=== PATIENT | male | born 1945 | race Caucasian/White ===

== ENCOUNTER 2016-12-29 19:34 | Inpatient (IN) | payer BC, OTHER ==
--- NOTE | 2016-12-29 19:37 | PDOC ---
History of Present Illness - General History Source: Patient, Family Exam Limitations: No Limitations - History of Present Illness Initial Comments: 12/29/16 20:10 The patient is a 71 year old male, with a significant past medical history of HTN, blood clot, and CHF, who presents to the emergency department with weakness and dysuria for a few weeks. He reports having blood and burning when he urinates. He reports also not being able to walk far or go up and down stairs secondary to his weakness. He denies any musculoskeletal pain and SOB with weight bearing activity. He notes recently losing a lot of weight for the past couple of weeks. He does note having a decrease in appetite, stating the last time he ate or drank anything was 2 days ago. He reports recently having the chills, weakness, and cold like symptoms for a few weeks. He denies any of these symptoms currently. He denies any recent fevers, chills, headache or dizziness. He denies any recent nausea, vomit, diarrhea or constipation. He denies any recent chest pain. He denies any other complaints of pain. He denies any recent frequency and urgency. His nephew reports these symptoms see similar to when the patient had CHF. Allergies: NKA Past surgical history: None reported. Social History: Nonsmoker. Denies EtOH use and drug use. Lives with nephew. PCP: <Jose Juan Perdue - Last Filed: 12/29/16 20:15> <Tavia Gutierrez - Last Filed: 12/30/16 03:47> - General Chief Complaint: Shortness of Breath Stated Complaint: SOB Time Seen by Provider: 12/29/16 19:37 Past History <Jose Juan Perdue - Last Filed: 12/29/16 20:15> - Past Medical History Anemia: No Asthma: No Cancer: No Cardiac Disorders: No CVA: No COPD: No CHF: Yes Dementia: No Diabetes: No GI Disorders: No Disorders: No HTN: Yes Hypercholesterolemia: No Liver Disease: No Seizures: No Thyroid Disease: No - Surgical History Abdominal Surgery: No Appendectomy: No Cardiac Surgery: No Cholecystectomy: No Lung Surgery: No Neurologic Surgery: No Orthopedic Surgery: No - Psycho/Social/Smoking Cessation Hx Anxiety: No Suicidal Ideation: No Smoking History: Never smoked Have you smoked in the past 12 months: No Hx Alcohol Use: No Drug/Substance Use Hx: No Substance Use Type: None Hx Substance Use Treatment: No <MattAlvinoTavia J - Last Filed: 12/30/16 03:47> - Past Medical History Allergies/Adverse Reactions: Allergies Allergy/AdvReac Type Severity Reaction Status Date / Time No Known Allergies Allergy Unverified 11/12/13 06:51 Home Medications: Ambulatory Orders Amlodipine Besylate [Norvasc -] 10 mg PO DAILY #0 tablet 11/16/13 Dutasteride [Avodart] 0.5 mg PO DAILY #0 cap 11/16/13 Magnesium Oxide [Mag-Ox -] 400 mg PO DAILY #0 tablet 11/16/13 Metoprolol Tartrate [Lopressor -] 25 mg PO BID #0 tab 11/16/13 Tamsulosin HCl [Flomax -] 0.4 mg PO HS #0 cap.er.24h 11/16/13 Review of Systems - Review of Systems All Other Systems: Reviewed and Negative <Jose Juan Perdue - Last Filed: 12/29/16 20:15> *Physical Exam - Physical Exam Comments: 12/29/16 20:13 GENERAL: The patient is awake, alert, and fully oriented. Pale and cachectic. HEAD: Normal with no signs of trauma. EYES: Pupils equal, round and reactive to light, extraocular movements intact, sclera anicteric, bilateral pale conjunctiva. ENT: bilateral temporal wasting. , oropharynx clear without exudates. Dry mucous membranes. NECK: Normal range of motion, supple without lymphadenopathy, JVD, or masses. LUNGS: Breath sounds equal, clear to auscultation bilaterally. No wheeze/ crackles. HEART: Regular rate and rhythm, normal S1 and S2 with 2/6 systolic murmur ABDOMEN: Lower abdominal distention with generalized moderate tenderness. Soft. BS wnl. No guarding or rebound. No palpable masses. No hepatosplenomegaly. EXTREMITIES: Normal range of motion, no edema. No clubbing or cyanosis. No cords , erythema, or tenderness. NEUROLOGICAL: Cranial nerves II through XII grossly intact. Normal speech, normal gait. PSYCH: Normal mood, normal affect. SKIN: Warm, Dry, normal turgor, no rashes or lesions noted. <Jose Juan Perdue - Last Filed: 12/29/16 20:15> ED Treatment Course - LABORATORY CBC & Chemistry Diagram: 12/29/16 20:29 12/29/16 23:10 <MattTavia Quiroga - Last Filed: 12/30/16 03:47> Progress Note - Progress Note Progress Note: Documentation has been prepared under my direction and personally reviewed by me in its entirety. I attest that this documented accurately reflects all work, treatment, procedures and medical decision making performed by me. <MattTavia Quiroga - Last Filed: 12/30/16 03:47> Medical Decision Making - Medical Decision Making As noted above, this 71-year-old man presents to the emergency room with a history of generalized weakness, decreased appetite and weight loss. Past medical history notable for aortic insufficiency and hypertension; he also has a history of UTI and urinary retention. Patient states that he has not seen Dr. Resendiz, who he uses as a general doctor and fills his prescriptions for a long time. Severe bilateral hydronephrosis was present on US during admission here in Oct 2013.He had urology consultation then with cystoscopy and possible TURP recommended but apparently has had no urologic follow-up since then. Exam notable for extreme cachexia; patient also appears clinically dehydrated. He has lower abdominal distention and tenderness. Patient received normal saline IV hydration at approx 250ml/hr 12 lead EKG shows NSR at 98bpm; LVH present with widening of QRS and peaking of T waves as compared to previous tracing of 11/12/13 Laboratory evaluation notable for white blood cell count 22,400; electrolytes notable for potassium of 8.0; carbon dioxide of 16 with an anion gap of 16. BUN is 175 with a creatinine of 6.4. Calcium is 11.0. Troponin is 0.05. Lactic acid is elevated at 3.549 Urinalysis notable for RBC, WBC and bacteria Patient received 10U reg insulin IV and 50ml of D50 for hyperkalemia at 21:30 12/29/16 23:38 portable chest x-ray performed which shows mild cardiomegaly without evidence of acute lung disease Noncontrast CT scan of the abdomen and pelvis: 1marked right and left renal hydronephrosis with marked dilatation of the renal pelvis . Round calcific density along the superior margin of the right kidney measuring 2.9cm [Calcified aneurysm versus calcified mass lesion] 2marked distention of the urinary bladder with thickening and trabeculation of the wall 3multiple gallstones without CT evidence of acute cholecystitis Zosyn 2.2g IV ordered. Mg level and repeat CMP/lactic acid levels pending Patient refused placement of urinary catheter 12/29/16 23:55 Repeat lab values: Potassium has decreased to 7.0; BUN is 165 and creatinine is 6.1. Calcium is now 9.9 and magnesium is 3.7 12/29/16 23:57 Clinical presentation consistent with acute on chronic renal insufficiency ( creatinine during admission of 11/14/13 was 2.6). There is indication of obstructive uropathy and possible mass versus aneurysm of the right kidney. Urinalysis shows evidence of UTI. Patient needs admission for evaluation of renal function, evaluation and observation of obstructive uropathy and treatment of infected urine Dr. Romero manager commission for medical service admissions and will be contacted. 12/30/16 00:[address] Johnson. Since patient will possibly need hemodialysis and, thus, [facility], he should be admitted to [facility] 12/30/16 01:[address] Fernández, [facility] ; nephrology will be contacted 12/30/16 01:[address] Whitt who emphasized importance of urinary catheter placement. He will follow progress of patient. The patient now agrees to placement of urinary catheter Calcium gluconate, 1 gram IV ordered Case discussed with Ermelinda Heath of [facility] who will admit patient 12/30/16 01:43 Mccurdy catheter placed without difficulty: 700ml of cloudy pink urine with clots drained. Patient tolerated procedure well Repeat VS : BP119/62, HR 94 O2 100% RA 12/30/16 02:01 Case discussed with AGUSTÍN Linton in ICU at [facility], who accepts patient. Kayexalate 15g PO and additional liter of IV NS will be administered 12/30/16 03:45 patient transported via [facility] ambulance [facility] <Tavia Gutierrez - Last Filed: 12/30/16 03:47> *DC/Admit/Observation/Transfer - Attestations Scribe Attestion: 12/29/16 19:39 Documentation prepared by Jose Juan Perdue, acting as medical office representative for Tavia Gutierrez MD. <Jose Juan Perdue - Last Filed: 12/29/16 20:15> - Discharge Dispostion Admit: Yes <Tavia Gutierrez - Last Filed: 12/30/16 03:47> Diagnosis at time of Disposition: Hyperkalemia, Obstructive uropathy Acute renal failure Qualifiers: Acute renal failure type: unspecified Qualified Code(s): N17.9 - Acute kidney failure, unspecified - Discharge Dispostion Condition at time of disposition: Guarded - Referrals Referrals: Luna Resendiz MD [Primary Care Provider] -
[2016-12-29 20:27] LABS: PH,URINE 8.5 (4.5-8); URINE APPEARANCE Cloudy; URINE BILIRUBIN Negative (NEGATIVE); URINE BLOOD 3+ (NEGATIVE); URINE COLOR YELLOW; URINE GLUCOSE (UA) Negative (NEGATIVE); URINE KETONE Trace (NEGATIVE); URINE LEUK ESTERASE 3+ (NEGATIVE); URINE NITRITE Negative (NEGATIVE); URINE PROTEIN 2+ (NEGATIVE); URINE UROBILINOGEN 0.2 E.U/dl (0.2-1.0)
[2016-12-29 20:38] LABS: URINE BACTERIA MODERATE /hpf (NEGATIVE); URINE WBC 20-30 (3-5)
[2016-12-29 21:04] LABS: MEAN PLT VOLUME 8.1 fl (7.5-11.1); RDW 12.7 % (11.9-15.9)
[2016-12-29 21:05] LABS: INR 1.18 (0.82-1.09); PROTHROMBIN TIME (PATIENT) 13.2 SEC (10.2-13.0)
[2016-12-29 21:08] LABS: MCH 31.4 pg (25.7-33.7); MCHC 34.7 g/dl (32.0-35.9); MEAN CELL VOLUME 90.7 fl (80-96); PLATELET COUNT 464 K/MM3 (134-434); WHITE BLOOD COUNT 22.4 K/mm3 (4.0-10.0)
[2016-12-29 21:11] LABS: ALBUMIN 3.7 g/dl (3.5-5.0); BILIRUBIN,TOTAL 0.6 mg/dl (0.2-1.0); CREATININE 6.4 mg/dl (0.6-1.3); TOT PROT 7.9 g/dl (6.4-8.3)
[2016-12-29 21:21] LABS: TROPONIN I (DFP) 0.05 ng/ml (0.03-0.50)
[2016-12-29] MEDS ORDERED: INSULIN REGULAR HUMAN 100 UNITS/ML *VIAL IVPUSH ONE (21:33)
[2016-12-29] MEDS ORDERED: DEXTROSE 50%-WATER 50 ML VIAL IVPUSH ONE (21:34)
[2016-12-29] MEDS ORDERED: INSULIN REGULAR HUMAN 100 UNITS/ML *VIAL ONE (21:40)
[2016-12-29] MEDS ORDERED: DEXTROSE 50%-WATER 50 ML DISP.SYRIN ONE (21:40)
[2016-12-29] MEDS ORDERED: PIPERACILLIN/TAZOB 2.25 GM 2.25 GM in DEXTROSE 5%-WATER - 50 ML IVPB ONE (22:31)
[2016-12-29] MEDS ORDERED: PIPERACILLIN/TAZOBACTAM 4.5 GM VIAL IVPB ONE (22:35)
[2016-12-29 22:39] LABS: PLATELET ESTIMATE INCREASED (NORMAL)
[2016-12-29 23:39] LABS: ALBUMIN 3.1 g/dl (3.5-5.0); BILIRUBIN,TOTAL 0.4 mg/dl (0.2-1.0); CALCIUM 9.9 mg/dl (8.4-10.2); CREATININE 6.1 mg/dl (0.6-1.3); MAGNESIUM 3.7 mg/dL (1.8-2.4); TOT PROT 6.7 g/dl (6.4-8.3)
[2016-12-30] MEDS ORDERED: CALCIUM GLUCONATE 10% - 1,000 MG/10 ML VIAL IVPB ONE (00:57)
[2016-12-30] MEDS ORDERED: CALCIUM GLUCONATE 10% - 1,000 MG/10 ML VIAL ONE (01:00)
[2016-12-30] MEDS ORDERED: SODIUM POLYSTYRENE SULFONATE 15 GM/60 ML BOTTLE PO ONE (02:04)
[2016-12-30] MEDS ORDERED: SODIUM CHLORIDE 1,000 ML IV STA (02:05)
--- NOTE | 2016-12-30 02:24 | HP ---
CHIEF COMPLAINT: Weakness, Dysuria PCP: Dr. Resendiz HISTORY OF PRESENT ILLNESS: This is a 71 year old male with a past medical history of HTN (poor compliant), Hydronephrosis, UTIs, CHF, Aortic Insufficiency, DVTs. Who presents to the emergency department with generalized weakness and dysuria x weeks. Patient reports having increased burning and pain when urinating- denies hematuria. Patient reports poor appetite, including po liquids. Patient reports having the Flu last November with diarrhea. Patient reports weight loss of 30lbs over 3-6 months which he attributes to his appetite. Patient denies fever, cough , SOB, CP, AP, vomiting, constipation. ER course was notable for: (1) Sepsis Criteria Met IV: P- 106, WBC 22,000, Lactic Acid 3.5, BUN 165- Zosyn given in ED (2) K 8.0 with EKG- peaked T Waves, given D50, Insulin IV, Calcium Gluconate, BiCarb IN ED (3) UA- +leukocytes, mod bacteria, +blood (4) CTAP- Hydronephrosis Recent Travel: None PAST MEDICAL HISTORY: See HPI PAST SURGICAL HISTORY: Unknown Social History: Smoking: Never Alcohol: None Drugs: None Family History: Non-Contributory Allergies No Known Allergies Allergy (Unverified 11/12/13 06:51) HOME MEDICATIONS: Home Medications Medication Instructions Recorded Amlodipine Besylate [Norvasc -] 10 mg PO DAILY #0 tablet 11/16/13 Dutasteride [Avodart] 0.5 mg PO DAILY #0 cap 11/16/13 Magnesium Oxide [Mag-Ox -] 400 mg PO DAILY #0 tablet 11/16/13 Metoprolol Tartrate [Lopressor -] 25 mg PO BID #0 tab 11/16/13 Tamsulosin HCl [Flomax -] 0.4 mg PO HS #0 cap.er.24h 11/16/13 REVIEW OF SYSTEMS CONSTITUTIONAL: chills, diaphoresis, generalized weakness, malaise, loss of appetite, weight change Absent: fever HEENT: Absent: rhinorrhea, nasal congestion, throat pain, throat swelling, difficulty swallowing, mouth swelling, ear pain, eye pain, visual changes CARDIOVASCULAR: Absent: chest pain, syncope, palpitations, irregular heart rate, lightheadedness , peripheral edema RESPIRATORY: Absent: cough, shortness of breath, dyspnea with exertion, orthopnea, wheezing, stridor, hemoptysis GASTROINTESTINAL: abdominal distension Absent: abdominal pain, nausea, vomiting, diarrhea, constipation, melena, hematochezia GENITOURINARY: dysuria Absent: frequency, urgency, hesitancy, hematuria, flank pain, genital pain MUSCULOSKELETAL: Absent: myalgia, arthralgia, joint swelling, back pain, neck pain SKIN: Absent: rash, itching, pallor HEMATOLOGIC/IMMUNOLOGIC: Absent: easy bleeding, easy bruising, lymphadenopathy, frequent infections ENDOCRINE: Absent: unexplained weight gain, unexplained weight loss, heat intolerance, cold intolerance NEUROLOGIC: Absent: headache, focal weakness or paresthesias, dizziness, unsteady gait, seizure, mental status changes, bladder or bowel incontinence PSYCHIATRIC: Absent: anxiety, depression, suicidal or homicidal ideation, hallucinations. PHYSICAL EXAMINATION Vital Signs - 24 hr 12/29/16 12/29/16 12/29/16 19:44 20:25 21:46 Pulse Rate 106 H Pulse Rate [ 92 H Left Radial] Respiratory 16 16 Rate Blood Pressure 130/56 Blood Pressure 123/52 [Right Arm] O2 Sat by Pulse 100 100 100 Oximetry (%) 12/30/16 01:48 Pulse Rate Pulse Rate [ 94 H Left Radial] Respiratory 16 Rate Blood Pressure Blood Pressure 119/2 [Right Arm] O2 Sat by Pulse 100 Oximetry (%) GENERAL: Cachetic, Awake, alert, and oriented x2, in no acute distress. HEAD: Normal with no signs of trauma. EYES: Pupils equal, round and reactive to light, extraocular movements intact, sclera anicteric, conjunctiva clear. No lid lag. EARS, NOSE, THROAT: Ears normal, nares patent, oropharynx clear without exudates. Dry mucous membranes. NECK: Normal range of motion, supple without lymphadenopathy, JVD, or masses. LUNGS: Breath sounds equal, clear to auscultation bilaterally. No wheezes, and no crackles. No accessory muscle use. HEART: Regular rate and rhythm, normal S1 and S2 without murmur, rub or gallop. ABDOMEN: Soft, flat, nontender, not distended, hypoactive bowel sounds, no guarding, no rebound, no masses. No hepatomegaly or splenomegaly. GENITOURINARY: Mccurdy catheter with gross hematuria in drainage bag MUSCULOSKELETAL: Normal range of motion at all joints. No bony deformities or tenderness. No CVA tenderness. UPPER EXTREMITIES: 2+ pulses, warm, well-perfused. No cyanosis. No clubbing. Cap refill <2 seconds. No peripheral edema. LOWER EXTREMITIES: 2+ pulses, warm, well-perfused. No calf tenderness. No peripheral edema. NEUROLOGICAL: Cranial nerves II-XII intact. Normal speech. Gait not observed. PSYCHIATRIC: Cooperative. Good eye contact. Appropriate mood and affect. SKIN: Warm, dry, poor turgor, no rashes or lesions noted. Laboratory Results - last 24 hr 12/29/16 12/29/16 12/29/16 20:19 20:25 20:25 WBC RBC Hgb Hct MCV MCHC RDW Plt Count MPV Neutrophils % Lymphocytes % Monocytes % Band Neutrophils Platelet Estimate Platelet Comment INR Sodium 128 L Potassium 8.0 H* D Chloride 96 L Carbon Dioxide 16 L D Anion Gap 16 BUN 175 H* D Creatinine 6.4 H D Creat Clearance w eGFR 8.70 Random Glucose 153 H D Lactic Acid Calcium 11.0 H D Magnesium Total Bilirubin 0.6 AST 17 ALT 11 D Alkaline Phosphatase 83 D Creatine Kinase 21 L Troponin I 0.05 D Total Protein 7.9 D Albumin 3.7 Urine Color Yellow Urine Appearance Cloudy Urine pH 8.5 H D Ur Specific [place] 1.020 Urine Protein 2+ H Urine Glucose (UA) Negative Urine Ketones Trace Urine Blood 3+ H Urine Nitrite Negative Urine Bilirubin Negative Urine Urobilinogen 0.2 e.u/dl Ur Leukocyte Esterase 3+ H Urine RBC 5-10 Urine WBC 20-30 Urine Bacteria Moderate 12/29/16 12/29/16 12/29/16 20:29 20:29 20:29 WBC 22.4 H D RBC 5.30 D Hgb 16.7 D Hct 48.1 D MCV 90.7 MCHC 34.7 RDW 12.7 Plt Count 464 H D MPV 8.1 Neutrophils % 90.0 H Lymphocytes % 2.0 L D Monocytes % 2.0 L Band Neutrophils 6.0 Platelet Estimate Increased Platelet Comment Few large plts INR 1.18 Sodium Potassium Chloride Carbon Dioxide Anion Gap BUN Creatinine Creat Clearance w eGFR Random Glucose Lactic Acid 3.549 H* Calcium Magnesium Total Bilirubin AST ALT Alkaline Phosphatase Creatine Kinase Troponin I Total Protein Albumin Urine Color Urine Appearance Urine pH Ur Specific [place] Urine Protein Urine Glucose (UA) Urine Ketones Urine Blood Urine Nitrite Urine Bilirubin Urine Urobilinogen Ur Leukocyte Esterase Urine RBC Urine WBC Urine Bacteria 12/29/16 23:10 WBC RBC Hgb Hct MCV MCHC RDW Plt Count MPV Neutrophils % Lymphocytes % Monocytes % Band Neutrophils Platelet Estimate Platelet Comment INR Sodium 128 L Potassium 7.0 H* Chloride 100 Carbon Dioxide 15 L Anion Gap 13 BUN 165 H* Creatinine 6.1 H Creat Clearance w eGFR 9.19 Random Glucose 169 H Lactic Acid Calcium 9.9 Magnesium 3.7 H D Total Bilirubin 0.4 D AST 10 D ALT 10 Alkaline Phosphatase 67 Creatine Kinase Troponin I Total Protein 6.7 Albumin 3.1 L Urine Color Urine Appearance Urine pH Ur Specific [place] Urine Protein Urine Glucose (UA) Urine Ketones Urine Blood Urine Nitrite Urine Bilirubin Urine Urobilinogen Ur Leukocyte Esterase Urine RBC Urine WBC Urine Bacteria 12/29/16 23:38 portable chest x-ray performed which shows mild cardiomegaly without evidence of acute lung disease Noncontrast CT scan of the abdomen and pelvis: 1marked right and left renal hydronephrosis with marked dilatation of the renal pelvis . Round calcific density along the superior margin of the right kidney measuring 2.9cm [Calcified aneurysm versus calcified mass lesion] 2marked distention of the urinary bladder with thickening and trabeculation of the wall 3multiple gallstones without CT evidence of acute cholecystitis ASSESSMENT/PLAN: This is a 71 y/o male with a PMHx of: HTN (poor compliant), CHF, Aortic Insufficiency, DVT, Hydronephrosis, Chronic UTIs. Presents to the ED with generalized weakness and Dysuria. Admitted to ICU for Urosepsis, Obstructive Uropathy, Hyperkalemia for further evaluation of their emergent condition. Plan: 1. Urosepsis 2. Obstructive Uropathy 3. Acute Renal Failure 4.Hyperkalemia 5. Abnormal EKG- Peaked T Waves 6. Weakness 7. Cachexia 8. HTN 9 FEN 10 DVT/PPI Prophylaxis Code Status: Full Code Dispo: Requires Inpatient Critical Care Monitoring Problem List - Problem (1) Sepsis Assessment/Plan: - ICU admit - Cardiac monitoring - Likely Urosepsis - Blood Cultures-pending - Urine Culture-pending - Zosyn given in ED - Appreciate ID Consult - Continue Empiric ABX until BC preliminary report, then adjust as indicated - Continue IVF monitor for fluid overload - Trend Lactic Acid - Mccurdy Catheter - Strict INOs Code(s): A41.9 - SEPSIS, UNSPECIFIED ORGANISM (2) Acute renal failure Assessment/Plan: - Possibly secondary to Dehydration vs Obstruction - Appreciate Nephrology Consult- ED spoke with Dr. Libby Flores who is aware - Monitor renal function - Avoid nephro toxic drugs - Renal US Code(s): N17.9 - ACUTE KIDNEY FAILURE, UNSPECIFIED Qualifiers: Acute renal failure type: unspecified Qualified Code(s): N17.9 - Acute kidney failure, unspecified (3) Obstructive uropathy Assessment/Plan: - CTAP- see Above - Appreciate Urology Consult Code(s): N13.9 - OBSTRUCTIVE AND REFLUX UROPATHY, UNSPECIFIED (4) Hyperkalemia Assessment/Plan: - D50, Insulin IV, Bicarb, Calcium Gluconate, Kayexalate given in ED - Peaked T waves on EKG - Trend K, treat with interventions accordingly - Continue Cardiac monitoring - Repeat EKG in am Code(s): E87.5 - HYPERKALEMIA (5) Lactic acidemia Assessment/Plan: - Secondary to Urosepsis - IVFs given - Trend LA Code(s): E87.2 - ACIDOSIS (6) Leukocytosis Assessment/Plan: - Secondary to Urosepsis - BC pending - Zosyn give in ED - Continue ABX - ID to follow Code(s): D72.829 - ELEVATED WHITE BLOOD CELL COUNT, UNSPECIFIED (7) Dysuria Assessment/Plan: - Secondary to UTI vs Obstruction - See Above Code(s): R30.0 - DYSURIA (8) Weakness Assessment/Plan: - Likely due to Dehydration from poor appetite - IVF - Monitor vitals - PT Code(s): R53.1 - WEAKNESS (9) HTN (hypertension) Assessment/Plan: - Moniitor BP - Hold home meds for now, 2/2 patient is septic Code(s): I10 - ESSENTIAL (PRIMARY) HYPERTENSION (10) Chronic UTI (urinary tract infection) Code(s): N39.0 - URINARY TRACT INFECTION, SITE NOT SPECIFIED (11) Poor appetite Assessment/Plan: - RD Consult Code(s): R63.0 - ANOREXIA (12) DVT prophylaxis Assessment/Plan: - Heparin SQ Code(s): [id number] - Visit type - Emergency Visit Emergency Visit: Yes ED Registration Date: 12/30/16 Care time: The patient presented to the Emergency Department on the above date and was hospitalized for further evaluation of their emergent condition. - New Patient This patient is new to me today: Yes Date on this admission: 12/30/16 - Critical Care Critical Care patient: Yes Total Critical Care Time (in minutes): 32 Critical Care Statement: The care of this patient involved high complexity decision making to prevent further life threatening deterioration of the patient 's condition and/or to evalute & treat vital organ system(s) failure or risk of failure.
[2016-12-30] MEDS ORDERED: SODIUM POLYSTYRENE SULFONATE 15 GM/60 ML BOTTLE ONE (02:48)
[2016-12-30] MEDS ORDERED: LACTATED RINGERS SOLUTION 1,000 ML IV ONE ×2 (04:14→04:15)
[2016-12-30] MEDS ORDERED: LACTATED RINGERS SOLUTION 1,000 ML IV SCH ×2 (04:15→05:45)
--- NOTE | 2016-12-30 04:19 | CONSULT ---
Consult Consult Specialty:: Pulm/CC - History of Present Illness History of Present Illness: Pt is a 71yr old man with PMHx of HTN, hydronephrosis and UTI. He presents to the ER with CC of weakness, dysuria and polyuria for several weeks. Pt states he had "the flu" about a month ago with diarrhea and reduced PO intake x 1 month. At [place] ER pt found to have WBC 22.4, Potassium of 8.0, BUN/Cr 175 /6.4 and +UA. Pt given IVF, Calcium, d50/10U insulin/kayexalate and Zosyn. Ab/ Pel CT as below. Pt transferred to [facility] ICU for further management. Upon assessment pt is alert but appears slightly confused, HR 116, 121/88, RR 20. Pt denies chest pain/headache/n/v/d. Urine in herrera with profound hematuria. Ab/Pel CT (briefly): Small pericardial effusion. Marked renal hydronephrosis without evidence of hydroureter suggestive of uteropelvic junction stenosis. Over distended urinary bladder with significant thickening of its wall and trabeculations. Slightly enlarged prostate gland. - History Source History Provided By: Patient, Medical Record Limitations to Obtaining History: Clinical Condition - Alcohol/Substance Use Hx Alcohol Use: No - Smoking History Smoking history: Never smoked Have you smoked in the past 12 months: No Aproximately how many cigarettes per day: 0 Home Medications - Allergies Allergies/Adverse Reactions: Allergies Allergy/AdvReac Type Severity Reaction Status Date / Time No Known Allergies Allergy Unverified 11/12/13 06:51 - Home Medications Home Medications: Ambulatory Orders Amlodipine Besylate [Norvasc -] 10 mg PO DAILY #0 tablet 11/16/13 Dutasteride [Avodart] 0.5 mg PO DAILY #0 cap 11/16/13 Magnesium Oxide [Mag-Ox -] 400 mg PO DAILY #0 tablet 11/16/13 Metoprolol Tartrate [Lopressor -] 25 mg PO BID #0 tab 11/16/13 Tamsulosin HCl [Flomax -] 0.4 mg PO HS #0 cap.er.24h 11/16/13 Review of Systems - Review of Systems Constitutional: reports: Lethargy, Loss of Appetite, Unintentional Wgt. Loss, Weakness Cardiovascular: denies: Chest Pain, Shortness of Breath Gastrointestinal: reports: Diarrhea Genitourinary: reports: Dysuria, Frequency Physical Exam Vital Signs: Vital Signs Period Temp Pulse Resp BP Sys/Martinez Pulse Ox Last 24 Hr 92-106 16-16 119-136/2-58 100-100 Intake & Output 12/27/16 12/28/16 12/29/16 12/30/16 23:59 23:59 23:59 23:59 Intake Total 950 Output Total 700 Balance 250 Weight 120 lb Constitutional: Yes: Cachectic, Mild Distress Eyes: Yes: PERRL HENT: Yes: WNL Neck: Yes: WNL Cardiovascular: Yes: Tachycardia Respiratory: Yes: Other. No: Rales, Rhonchi, SOB, Wheezes Gastrointestinal: Yes: Normal Bowel Sounds, Other (winces with palpation but denies pain) ...Rectal Exam: Yes: Deferred Renal/: Yes: Herrera Present, Hematuria Edema: No Peripheral Pulses WNL: (+2 bilateral pedal pulses) Integumentary: Yes: Tenting Neurological: Yes: Confusion Psychiatric: Yes: Agitated Labs: Abnormal Lab Results 12/29/16 12/29/16 12/29/16 20:19 20:25 20:25 WBC Plt Count Neutrophils % Lymphocytes % Monocytes % Sodium 128 L Potassium 8.0 H* D Chloride 96 L Carbon Dioxide 16 L D BUN 175 H* D Creatinine 6.4 H D Random Glucose 153 H D Lactic Acid Calcium 11.0 H D Magnesium Creatine Kinase 21 L Albumin Urine pH 8.5 H D Urine Protein 2+ H Urine Blood 3+ H Ur Leukocyte Esterase 3+ H 12/29/16 12/29/16 12/29/16 20:29 20:29 23:10 WBC 22.4 H D Plt Count 464 H D Neutrophils % 90.0 H Lymphocytes % 2.0 L D Monocytes % 2.0 L Sodium 128 L Potassium 7.0 H* Chloride Carbon Dioxide 15 L BUN 165 H* Creatinine 6.1 H Random Glucose 169 H Lactic Acid 3.549 H* Calcium Magnesium 3.7 H D Creatine Kinase Albumin 3.1 L Urine pH Urine Protein Urine Blood Ur Leukocyte Esterase Imaging - Results Chest X-ray: Report Reviewed, Image Reviewed Cat Scan: Report Reviewed Assessment/Plan Pt is a 71yr old man with PMhx of HTN and UTIs. Now in the ICU for severe FABIAN, urosepsis, compensated metabolic acidosis with metabolic encephalopathy. Pulm: -O2 support prn for sat >94% -Incentive spirometer ID: Urosepsis -f/u cultures -Consult -Zosyn given in ER, continue antibiotics per ID -f/u lactic acid -Consider HIV testing Renal: Compensated metabolic acidosis -Consult -HD as needed -Aggressive IVF -Monitor electrolytes -Urine electrolytes/creatinine -Renal US -Continue flomax Cardiac -f/u enzymes -BP control -Tachy likely in setting of dehydration -EKG -f/u ECHO (pericardial effusion on ab/pel CT) Neuro: Metabolic encephalopathy from uremia -Head CT is symptoms do not improve -f/u ammonia level -Pain management prn Endo: Polyuria -f/u A1c -BGM -Glycemic control Prophylactic -DVT
[2016-12-30 04:49] LABS: ARTERIAL BLD GAS O2 SATURATION 97.8 % (90-98.9); ARTERIAL BLOOD GAS PO2 99.3 mmHg (80-100); ARTERIAL BLOOD GAS pH 7.37 (7.35-7.45)
[2016-12-30 04:50] LABS: ALLENS TEST POSITIVE; ART PUNCT SITE RIGHT RADIAL; ARTERIAL BLOOD GAS HCO3 13.3 meq/L (22-26); PT. ON O2? NO; TYPE OF O2 ROOM AIR
[2016-12-30 05:26] LABS: MCH 30.7 pg (25.7-33.7); MEAN CELL VOLUME 93.1 fl (80-96); MEAN PLT VOLUME 8.2 fl (7.5-11.1); PLATELET COUNT 347 K/MM3 (134-434); RDW 13.9 % (11.9-15.9); WHITE BLOOD COUNT 23.8 K/mm3 (4.0-10.0)
[2016-12-30 05:43] VITALS: BMI 14.7
[2016-12-30 05:49] LABS: INR 1.15 (0.82-1.09); PROTHROMBIN TIME (PATIENT) 12.7 SEC (9.98-11.88)
[2016-12-30 05:52] LABS: ACTIVATED PTT 34.4 SECONDS (26.9-34.4)
[2016-12-30] MEDS ORDERED: INSULIN REGULAR HUMAN 100 UNITS/ML *VIAL IVPUSH ONE (05:53)
[2016-12-30] MEDS ORDERED: DEXTROSE 50%-WATER 50 ML VIAL IVPUSH ONE (05:53)
[2016-12-30] MEDS ORDERED: CEFTRIAXONE 1 GM in DEXTROSE 5%-WATER - 100 ML IVPB SCH (06:00)
[2016-12-30] MEDS ORDERED: DOPAMINE 400 MG/D5W - 250 ML IVPB SCH (06:00)
[2016-12-30 06:04] LABS: URINE CREATININE 66.4 mg/dL
[2016-12-30] MEDS ORDERED: DEXTROSE 50%-WATER 50 ML DISP.SYRIN ONE (06:08)
[2016-12-30] MEDS ORDERED: cefTRIAXone 1 GM/50 ML BAG (PRE-DOCKED) IVPB SCH (06:15)
[2016-12-30 06:47] LABS: ALBUMIN 2.4 g/dl (3.4-5.0); BILIRUBIN,TOTAL 0.4 mg/dL (0.2-1.0); CALCIUM 9.3 mg/dL (8.5-10.1); CREATININE 5.1 mg/dL (0.7-1.3)
[2016-12-30 06:48] LABS: TOT PROT 5.5 g/dl (6.4-8.2)
[2016-12-30] MEDS: DEXTROSE 5%-0.45% SALINE 1,000 ML IV SCH ×2 (08:08→15:15)
--- NOTE | 2016-12-30 09:49 | CONSULT ---
Consult Consult Specialty:: Nephrology ( Jose Eduardo/ Wally) Reason for Consultation:: Many thanks for this consult referral. 71 y/o male admitted feeling weak, tired and inability to move around. Found to have sever azoytemia and Hyperkalemia. The patient has h/o Obstructive uropathy, but did not follow up with the doctors. Has H/o Hypertension, Hydronephrosis, H/o UTI, CHF, Aortic insufficiency, DVT. Massive weight loss in the recent months ( Involuntary). Has been having increased urinary frequency with Nocturia - History Source History Provided By: Patient, Medical Record Limitations to Obtaining History: No Limitations - Past Medical History Cardio/Vascular: Yes: Aortic Insufficiency, CHF, HTN Renal/: Yes: Renal Failure, BPH Musculoskeletal: Yes: Chronic low back pain - Alcohol/Substance Use Hx Alcohol Use: No - Smoking History Smoking history: Never smoked Have you smoked in the past 12 months: No Aproximately how many cigarettes per day: 0 Home Medications - Allergies Allergies/Adverse Reactions: Allergies Allergy/AdvReac Type Severity Reaction Status Date / Time No Known Allergies Allergy Unverified 11/12/13 06:51 - Home Medications Home Medications: Ambulatory Orders Amlodipine Besylate [Norvasc -] 10 mg PO DAILY #0 tablet 11/16/13 Dutasteride [Avodart] 0.5 mg PO DAILY #0 cap 11/16/13 Magnesium Oxide [Mag-Ox -] 400 mg PO DAILY #0 tablet 11/16/13 Metoprolol Tartrate [Lopressor -] 25 mg PO BID #0 tab 11/16/13 Tamsulosin HCl [Flomax -] 0.4 mg PO HS #0 cap.er.24h 11/16/13 Review of Systems - Review of Systems Constitutional: reports: Lethargy, Loss of Appetite, Malaise, Unintentional Wgt. Loss, Weakness Neck: reports: No Symptoms Respiratory: reports: No Symptoms Genitourinary: reports: Frequency, Urgency, Other (Nocturia) Musculoskeletal: reports: Back Pain Neurological: reports: Confusion Physical Exam Vital Signs: Vital Signs Temperature 98 F 12/30/16 04:10 Pulse Rate 98 H 12/30/16 07:57 Respiratory Rate 12 12/30/16 07:57 Blood Pressure 128/52 12/30/16 07:57 O2 Sat by Pulse Oximetry (%) 100 12/30/16 08:17 Constitutional: Yes: Anxious, Mild Distress Eyes: Yes: WNL, Conjunctiva Clear HENT: Yes: Normocephalic Neck: Yes: Trachea Midline Cardiovascular: Yes: Regular Rate and Rhythm, S1, S2 Respiratory: Yes: Regular, CTA Bilaterally Gastrointestinal: Yes: Soft Renal/: Yes: Mccurdy Present Extremities: Yes: WNL Edema: No Integumentary: Yes: WNL Neurological: Yes: Alert, Oriented Psychiatric: Yes: Alert, Oriented Labs: CBC, BMP 12/30/16 04:45 12/30/16 05:20 Assessment/Plan 71 y/o male with: Acute severe Azotemia. The acute renal dysfunction possibly related to obstructive uropathy. Possibly outlet obstruction from Enlarged prostate. The Mccurdy catheter is draining dark urine. Acute severe Hyperkalemia. Responded to Medical management. Now the K is 5.4mEq /L. Will need to watch closely for tendency for Hypokalemia during Post Obstructive diuresis. The patient has underlying Chronic Kidney disease. It is not known what his new baseline renal function would be. If the patient maintains severe azotemia, will need to discuss [employer] for the future. Right Renal mass. Needs further evaluation. consult pending. Also of note is CORRECTED Hypercalcemia. This is particularly of significance given the patients recent h/o massive involuntary weight loss. Plan: IV fluids as ordered Will Monitor Renal functions with you. Watch for Hypokalemia in the post-obstructive diuresis phase. evaluation. Will Stop antiHypertensives for now, since the BP is low normal. Thanks again. Will follow with you. Libby Whitt MD
[2016-12-30] MEDS: MAGNESIUM OXIDE 400 MG TABLET (FP) PO SCH (09:52)
[2016-12-30] MEDS: amLODIPine BESYLATE 10 MG TABLET (FP) PO SCH (09:52)
--- NOTE | 2016-12-30 10:27 | EKG ---
Test Reason : Blood Pressure : / mmHG Vent. Rate : 100 BPM Atrial Rate : 100 BPM P-R Int : 168 ms QRS Dur : 110 ms QT Int : 356 ms P-R-T Axes : 074 057 219 degrees QTc Int : 459 ms POOR DATA QUALITY, INTERPRETATION MAY BE ADVERSELY AFFECTED SINUS RHYTHM WITH PREMATURE ATRIAL COMPLEXES POSSIBLE LEFT ATRIAL ENLARGEMENT LEFT VENTRICULAR HYPERTROPHY WITH REPOLARIZATION ABNORMALITY CANNOT RULE OUT SEPTAL INFARCT (CITED ON OR BEFORE 29-DEC-2016) ABNORMAL ECG Confirmed by SANG SUN MD ([id number]) on 12/30/2016 10:27:21 AM Referred By: LENA NOVOA Confirmed By:SANG SUN MD
[2016-12-30] MEDS: MUPIROCIN 2% TOPICAL OINTMENT FOR DECOLONIZATION NS SCH (10:44)
[2016-12-30] MEDS: DUTASTERIDE 0.5 MG CAP (FP) PO SCH (10:44)
[2016-12-30 13:29] LABS: ALBUMIN 2.3 g/dl (3.4-5.0); CALCIUM 8.9 mg/dL (8.5-10.1); CREATININE 3.9 mg/dL (0.7-1.3); MAGNESIUM 2.9 mg/dL (1.8-2.4); PHOSPHOROUS 4.9 mg/dL (2.5-4.9)
[2016-12-30 13:32] LABS: BILIRUBIN,TOTAL 0.4 mg/dL (0.2-1.0); TOT PROT 5.2 g/dl (6.4-8.2)
--- NOTE | 2016-12-30 13:42 | PN ---
Physical Exam: SUBJECTIVE: Patient seen and examined at bedside in the ICU. He reported feeling better than yesterday, wants to eat, stated he's feeling weak for weeks and lost 30 lbs in 1 month. Denies fever, chills, n/v, chest pain, sob, abd pain, urinary and bowel sx. OBJECTIVE: Vital Signs Period Temp Pulse Resp BP Sys/Martinez Pulse Ox Last 24 Hr 98 F 88-98 12-18 112-138/40-69 100 GENERAL: Awake, alert, and fully oriented, cachectic, in no cardiopulmonary distress EYES: sclera anicteric, conjunctiva clear. LUNGS: CTAB HEART: RRR, normal S1 and S2 without murmur, rub or gallop. ABDOMEN: Soft, thin, nontender, not distended, normoactive bowel sounds, no guarding, no rebound, no masses LOWER EXTREMITIES: warm, No calf tenderness. No edema : herrera in place with yellow and clear urine ABG Results ABG pH 7.37 (7.35-7.45) 12/30/16 04:16 ABG pCO2 at Pt Temp 23.3 mmHg (35-45) L 12/30/16 04:16 ABG pO2 at Pt Temp 99.3 mmHg (80-100) 12/30/16 04:16 ABG HCO3 13.3 meq/L (22-26) L* 12/30/16 04:16 ABG O2 Sat (Measured) 97.8 % (90-98.9) 12/30/16 04:16 ABG O2 Content 18.6 % vol (15-22) 12/30/16 04:16 ABG Base Excess -10.0 meq/l (-2-2) L 12/30/16 04:16 CBCD WBC 23.8 K/mm3 (4.0-10.0) H 12/30/16 04:45 RBC 4.70 M/mm3 (4.00-5.60) 12/30/16 04:45 Hgb 14.5 GM/dL (11.7-16.9) 12/30/16 04:45 Hct 43.8 % (35.4-49) 12/30/16 04:45 MCV 93.1 fl (80-96) 12/30/16 04:45 MCHC 33.0 g/dl (32.0-35.9) 12/30/16 04:45 RDW 13.9 % (11.9-15.9) 12/30/16 04:45 Plt Count 347 K/MM3 (134-434) 12/30/16 04:45 MPV 8.2 fl (7.5-11.1) 12/30/16 04:45 CMP Sodium 142 mmol/L (136-145) 12/30/16 12:25 Potassium 4.4 mmol/L (3.5-5.1) 12/30/16 12:25 Chloride 109 mmol/L (98-107) H 12/30/16 12:25 Carbon Dioxide 20 mmol/L (21-32) L 12/30/16 12:25 Anion Gap 13 (8-16) 12/30/16 12:25 BUN 113 mg/dL (7-18) H* 12/30/16 12:25 Creatinine 3.9 mg/dL (0.7-1.3) H D 12/30/16 12:25 Creat Clearance w eGFR 15.41 (>60) 12/30/16 12:25 Calcium 8.9 mg/dL (8.5-10.1) 12/30/16 12:25 Total Bilirubin 0.4 mg/dL (0.2-1.0) 12/30/16 12:25 AST 3 U/L (15-37) L 12/30/16 12:25 ALT 8 U/L (12-78) L 12/30/16 12:25 Alkaline Phosphatase 61 U/L (45-117) 12/30/16 12:25 Total Protein 5.2 g/dl (6.4-8.2) L 12/30/16 12:25 Albumin 2.3 g/dl (3.4-5.0) L 12/30/16 12:25 Intake & Output 12/27/16 12/28/16 12/29/16 12/30/16 23:59 23:59 23:59 23:59 Intake Total 2950 Output Total 2100 Balance 850 Weight 54.431 kg 39 kg Active Medications Generic Name Dose Route Start Last Admin Trade Name Freq PRN Reason Stop Dose Admin Amlodipine Besylate 10 mg 12/30/16 10:00 12/30/16 09:52 Norvasc - PO 10 mg DAILY ELIO Administration Ceftriaxone Sodium 1 gm 12/30/16 06:15 12/30/16 06:44 Rocephin 1gm Ivpb (Pre-Docked) IVPB 1 gm DAILY@0600 ELIO Administration Chlorhexidine Gluconate 1 applic 12/30/16 22:00 Hibiclens For Decolonization - TP [facility] Dutasteride 0.5 mg 12/30/16 10:00 12/30/16 10:44 Avodart - PO 0.5 mg DAILY ELIO Administration Dextrose/Sodium Chloride 1,000 mls @ 100 mls/hr 12/30/16 07:00 12/30/16 08:08 D5-1/2ns - IV Not Given ASDIR [facility] Magnesium Oxide 400 mg 12/30/16 10:00 12/30/16 09:52 Mag-Ox - PO 400 mg DAILY [facility] Administration Mupirocin 1 applic 12/30/16 10:00 12/30/16 10:44 Bactroban Ointment (For Decolonization) - NS 01/04/17 09:59 1 applic BID [facility] Administration Tamsulosin HCl 0.4 mg 12/30/16 22:00 Flomax - PO HS [facility] Microbiology 12/30/16 04:45 Nasopharyngeal Swab Respiratory Virus Panel - Preliminary 12/30/16 04:45 Nasopharyngeal Swab Influenza Types A,B Antigen (SHELBY) - Final 12/30/16 04:45 Nasopharyngeal Swab - Final Imaging CT Abd on 12/30: Marked renal hydronephrosis without evidence of hydroureter suggestive of uteropelvic junction stenosis. Over distended urinary bladder with significant thickening of its wall and trabeculations. Slightly enlarged prostate gland Gallstones without CT evidence of acute cholecystitis. R calcified aneurysm vs. calcified mass lesion CXR on 12/30: Cardiomegaly with no acute pathology ASSESSMENT/PLAN: 71 yo M w/ h/o HTN, bilateral hydronephrosis, recurrent UTI, CHF, aortic insufficiency and DVT admitted to ICU for severe sepsis 2/2 complicated UTI. ID: Severe sepsis 2/2 UTI, complicated - Improving - Afrebile, WBC 23 - On rocephin 1g day 1 * received 1 dose of zosyn in ED - Pending final cultures - Trend lactic acid and CBC Renal: FABIAN on CKD; renal malignancy vs. obstructive uropathy - Baseline Cr 2.6 - FeNa 1.7 suggests intrinsic renal - BUN/Cr cont. to improve on subsequent labs * trend Cr - Malignancy vs. Obstructive * acute weight loss 30lbs in 1 month * calcified mass vs. aneurysm on CT * underlying BPH and b/l hydronephrosis on CT - F/U on renal U/S - Renal consult appreciated Cardio: EKG change 2/2 hyperkalemia - Resolved - Cont. cardiac monitoring - EKG : BPH - Resumed avodart and flomax - Urology consult appreciated FEN - Cont. D5W-1/2NS - Severe hyperkalemia with EKG change; hypercalcemia (corrected) likely 2/2 malignancy * resolved * resume metoprolol * cont. to monitor - Protein/sodium controlled diet Prophylaxis - DVT: heparin SQ 5000 TID - GI: not indicated Disposition - cont. to monitor in ICU Code status - Full code Visit type - Emergency Visit Emergency Visit: No - New Patient This patient is new to me today: Yes Date on this admission: 12/30/16 - Critical Care Critical Care patient: Yes Total Critical Care Time (in minutes): 45 Critical Care Statement: The care of this patient involved high complexity decision making to prevent further life threatening deterioration of the patient 's condition and/or to evalute & treat vital organ system(s) failure or risk of failure.
--- NOTE | 2016-12-30 14:01 | EKG ---
Test Reason : Blood Pressure : / mmHG Vent. Rate : 098 BPM Atrial Rate : 098 BPM P-R Int : 268 ms QRS Dur : 140 ms QT Int : 358 ms P-R-T Axes : 067 052 126 degrees QTc Int : 457 ms SINUS RHYTHM WITH 1ST DEGREE A-V BLOCK POSSIBLE LEFT ATRIAL ENLARGEMENT LEFT VENTRICULAR HYPERTROPHY WITH QRS WIDENING AND REPOLARIZATION ABNORMALITY . LBBB morphology CANNOT RULE OUT SEPTAL INFARCT , AGE UNDETERMINED ABNORMAL ECG NO PREVIOUS ECGS AVAILABLE Confirmed by MD NOLASCO MARJORY ([id number]) on 12/30/2016 2:00:46 PM Referred By: MD MUNGUIA Confirmed By:BOO NOLASCO MD
[2016-12-30] MEDS ORDERED: ACETAMINOPHEN 325 MG TABLET (FP) PO PRN (14:18)
--- NOTE | 2016-12-30 15:42 | CONSULT ---
Consult Consult Specialty:: Cardiology Referred by:: Aggie Woo Reason for Consultation:: Aortic regurgitation - History of Present Illness History of Present Illness: 71 yo male, non-smoker with hx of HTN, AI -. 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 never followed on recommended stress test, ? remote hx of CVA/TIA, RLE DVT in 2008, CRI, b/l hydro in 2013, went to [facility] with weakness, dysuria and polyuria for several weeks -. reported having had "the flu" about a month ago with diarrhea and reduced PO intake x 1 month. At [place] [facility] -> found with WBC 22.4, Potassium of 8.0, BUN/Cr 175/6.4 and +UA -> IVF, Calcium, d50/10U insulin/ kayexalate and Zosyn -> Abd/Pelvic CT -. hydro -> transferred to [facility] ICU for further management. Initial EKG has widened QRS, inferior an dlateral St-T cahnges in setting of LVH -. repeat EKG after correction of K, showed only mild IVCD (pt's baseline) He was also confused by report Presently, he is awake and alert. He denies CP, SOB throughout all this and repeated the above story of the flu Medical History - HTN for over 40 years, treated as of October of 2010 - AI -> mod on last echo from 2013 - Abnl EKG, at least since 2010 -> suggestive of jacqueline-septal [place] -. stres test recommended, but patient never followed - Right deep vein thrombosis in 2008 -> LE venous USG on 11/12/13 -> neg for DVT. 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 CVA/TIA about 10-12 ya - CRI since 10/2010 (Cr 1.7) - Urinary retention on 11/13/13 -> severe b/l hydro - BPH - UTI - V/Q scan (11/13/13 - > Low probability for PE - Pneumonia in 2008 - Chronic low back pain Echocardiography 11/14/13 ([facility]) Normal LV size, mild concentric LVH, EF 74% Apical anterior wall hypokinesis, apical lateral wall hypokinesis Grade 1 diastolic dysfunction Mild to moderate mitral valve leaflet thickening, mild MAC, trace to mild MR Mild TR, normal pulmonary pressures Mild aortic sclerosis, at least moderate AI (no full evaluation) Aortic root calcification Surgical History Tonsillectomy Right Pyroplasty in 1983 (was urinating blood) Family History Mother at 91 in 10/02, had had CVA/A. fib Father at 72 of prostate cancer 2 sisters -> one found in 01/04 in her house -> ? cause - Past Medical History Renal/: Yes: Renal Failure - Alcohol/Substance Use Hx Alcohol Use: No - Smoking History Smoking history: Never smoked Have you smoked in the past 12 months: No Aproximately how many cigarettes per day: 0 Home Medications - Allergies Allergies/Adverse Reactions: Allergies Allergy/AdvReac Type Severity Reaction Status Date / Time No Known Allergies Allergy Unverified 11/12/13 06:51 - Home Medications Home Medications: Ambulatory Orders Amlodipine Besylate [Norvasc -] 10 mg PO DAILY #0 tablet 11/16/13 Dutasteride [Avodart] 0.5 mg PO DAILY #0 cap 11/16/13 Magnesium Oxide [Mag-Ox -] 400 mg PO DAILY #0 tablet 11/16/13 Metoprolol Tartrate [Lopressor -] 25 mg PO BID #0 tab 11/16/13 Tamsulosin HCl [Flomax -] 0.4 mg PO HS #0 cap.er.24h 11/16/13 Review of Systems - Review of Systems Constitutional: reports: Malaise, Weakness Eyes: reports: No Symptoms HENT: reports: No Symptoms Neck: reports: No Symptoms Cardiovascular: reports: No Symptoms Respiratory: reports: No Symptoms Gastrointestinal: reports: No Symptoms Genitourinary: reports: Burning Musculoskeletal: reports: No Symptoms Endocrine: reports: No Symptoms Hematology/Lymphatic: reports: Other (some hematuria -. resolved) Psychiatric: reports: No Symptoms Physical Exam Vital Signs: Vital Signs Temperature 98 F 12/30/16 12:00 Pulse Rate 98 H 12/30/16 14:00 Respiratory Rate 18 12/30/16 14:00 Blood Pressure 124/50 12/30/16 14:00 O2 Sat by Pulse Oximetry (%) 100 12/30/16 08:17 Constitutional: Yes: Cachectic Eyes: Yes: Conjunctiva Clear HENT: Yes: Atraumatic Neck: Yes: Supple Cardiovascular: Yes: Regular Rate and Rhythm, Murmur (diastolic) Respiratory: Yes: CTA Bilaterally Gastrointestinal: Yes: Normal Bowel Sounds, Soft Extremities: Yes: Other (warm) Edema: No Peripheral Pulses WNL: Yes Neurological: Yes: Alert, Oriented Psychiatric: Yes: Alert, Oriented Labs: CBC, BMP 12/30/16 04:45 12/30/16 12:25 Imaging - Results Chest X-ray: Report Reviewed, Image Reviewed EKG: Report Reviewed, Image Reviewed Assessment/Plan 71 yo male with the above history, here with weakness, dysuria and polyuria for several weeks -. reported having had "the flu" about a month ago with diarrhea and reduced PO intake x 1 month. At [place] [facility] -> found with WBC 22.4, Potassium of 8.0, BUN/Cr 175/6.4 and +UA -> IVF, Calcium, d50/10U insulin/ kayexalate and Zosyn -> Abd/Pelvic CT -> b/l hydro -> transferred to [facility] ICU for further management. Patient is much better No evidence of ACS or CHF EKG had widened QRS and inf-lateral St-T changes in setting of LVH -> QRS narrowed after treatment Echo was done -. not yet read Was a bit tachycardic -. better BB resumed Rec: Continue current management Follow on echo results Follow on urine and bolld cultures Per IM/renal/ Thanks! we'll follow!
--- NOTE | 2016-12-30 15:43 | CON.GU ---
Consult - History of Present Illness History of Present Illness: 71 yo male with h/o BPH and incomplete bladder emtying, non compliant, last seen in office in [address] Barrios, recommend to undergo greeblight laser of the prostate at that time for elevated pvr but pt refused. Now admitted with uti, sepsis, urinary retention, bilateral hydronephrosis, possible renal mass. - Past Medical History Cardio/Vascular: Yes: Aortic Insufficiency, CHF, HTN Renal/: Yes: Renal Failure, BPH Musculoskeletal: Yes: Chronic low back pain - Alcohol/Substance Use Hx Alcohol Use: No - Smoking History Smoking history: Never smoked Have you smoked in the past 12 months: No Aproximately how many cigarettes per day: 0 Home Medications - Allergies Allergies/Adverse Reactions: Allergies Allergy/AdvReac Type Severity Reaction Status Date / Time No Known Allergies Allergy Unverified 11/12/13 06:51 - Home Medications Home Medications: Ambulatory Orders Amlodipine Besylate [Norvasc -] 10 mg PO DAILY #0 tablet 11/16/13 Dutasteride [Avodart] 0.5 mg PO DAILY #0 cap 11/16/13 Magnesium Oxide [Mag-Ox -] 400 mg PO DAILY #0 tablet 11/16/13 Metoprolol Tartrate [Lopressor -] 25 mg PO BID #0 tab 11/16/13 Tamsulosin HCl [Flomax -] 0.4 mg PO HS #0 cap.er.24h 11/16/13 Physical Exam- Vital Signs: Vital Signs Temperature 98 F 12/30/16 12:00 Pulse Rate 98 H 12/30/16 14:00 Respiratory Rate 18 12/30/16 14:00 Blood Pressure 124/50 12/30/16 14:00 O2 Sat by Pulse Oximetry (%) 100 12/30/16 08:17 Renal/: Yes: Mccurdy Present Labs: CBC, BMP 12/30/16 04:45 12/30/16 12:25 Imaging - Results Cat Scan: Report Reviewed Assessment/Plan Urinary Retention/UTI -await culture -abx as ordered Possible renal mass -will obtain renal sono
[2016-12-30] MEDS ORDERED: VANCOMYCIN 1 GRAM (PRE-DOCKED) 250 ML IVPB ONE (16:29)
--- NOTE | 2016-12-30 16:34 | CONSULT ---
Consult Consult Specialty:: infectious diseases Reason for Consultation:: urosepsis ,complicated uti - History of Present Illness Chief Complaint: weakness History of Present Illness: 71 year old male with a past medical history of HTN (poor compliant), Hydronephrosis, UTIs, CHF, Aortic Insufficiency, DVTs. admitted to the icu with generalized weakness and dysuria x weeks. Patient reports having increased burning and pain when urinating- denies hematuria. Patient reports poor appetite , including po liquids. Patient reports having the Flu last November with diarrhea. Patient reports weight loss of 30lbs over 3-6 months which he attributes to his appetite. Patient denies fever, cough, SOB, CP, AP, vomiting, constipation. patient was transferred from [place] to here because of sepsis and also altered mental status patient was given abx now the patient is awake and alert,but is showing bacteremia - History Source History Provided By: Patient, Medical Record Limitations to Obtaining History: Clinical Condition - Past Medical History Cardio/Vascular: Yes: Aortic Insufficiency, CHF, HTN Renal/: Yes: Renal Failure Musculoskeletal: Yes: Chronic low back pain - Alcohol/Substance Use Hx Alcohol Use: No - Smoking History Smoking history: Never smoked Have you smoked in the past 12 months: No Aproximately how many cigarettes per day: 0 Home Medications - Allergies Allergies/Adverse Reactions: Allergies Allergy/AdvReac Type Severity Reaction Status Date / Time No Known Allergies Allergy Unverified 11/12/13 06:51 - Home Medications Home Medications: Ambulatory Orders Amlodipine Besylate [Norvasc -] 10 mg PO DAILY #0 tablet 11/16/13 Dutasteride [Avodart] 0.5 mg PO DAILY #0 cap 11/16/13 Magnesium Oxide [Mag-Ox -] 400 mg PO DAILY #0 tablet 11/16/13 Metoprolol Tartrate [Lopressor -] 25 mg PO BID #0 tab 11/16/13 Tamsulosin HCl [Flomax -] 0.4 mg PO HS #0 cap.er.24h 11/16/13 Review of Systems - Review of Systems Constitutional: reports: No Symptoms, Unintentional Wgt. Loss Eyes: reports: No Symptoms HENT: reports: No Symptoms Neck: reports: No Symptoms Cardiovascular: reports: No Symptoms Respiratory: reports: No Symptoms Gastrointestinal: reports: No Symptoms Genitourinary: reports: Burning, Dysuria Musculoskeletal: reports: No Symptoms Integumentary: reports: No Symptoms Neurological: reports: Change in LOC Endocrine: reports: No Symptoms Hematology/Lymphatic: reports: No Symptoms Psychiatric: reports: No Symptoms Physical Exam Vital Signs: Vital Signs Temperature 98 F 12/30/16 12:00 Pulse Rate 98 H 12/30/16 14:00 Respiratory Rate 18 12/30/16 14:00 Blood Pressure 124/50 12/30/16 14:00 O2 Sat by Pulse Oximetry (%) 100 12/30/16 08:17 Constitutional: Yes: Calm, Mild Distress Eyes: Yes: Conjunctiva Clear HENT: Yes: Atraumatic Neck: Yes: Supple Cardiovascular: Yes: Regular Rate and Rhythm Respiratory: Yes: Regular, CTA Bilaterally Gastrointestinal: Yes: Normal Bowel Sounds, Soft Renal/: Yes: Mccurdy Present Musculoskeletal: Yes: WNL Extremities: Yes: WNL Neurological: Yes: Alert, Oriented Psychiatric: Yes: Alert Labs: CBC, BMP 12/30/16 04:45 12/30/16 12:25 Imaging - Results Chest X-ray: Report Reviewed, Image Reviewed Cat Scan: Report Reviewed, Image Reviewed Assessment/Plan it is rather odd patient has so much weight loss involuntary so soon patient now looking better Problem List - Problem (1) Sepsis Code(s): A41.9 - SEPSIS, UNSPECIFIED ORGANISM (2) Acute renal failure Code(s): N17.9 - ACUTE KIDNEY FAILURE, UNSPECIFIED Qualifiers: Acute renal failure type: unspecified Qualified Code(s): N17.9 - Acute kidney failure, unspecified (3) Obstructive uropathy Code(s): N13.9 - OBSTRUCTIVE AND REFLUX UROPATHY, UNSPECIFIED (4) Hyperkalemia Code(s): E87.5 - HYPERKALEMIA (5) Lactic acidemia Code(s): E87.2 - ACIDOSIS (6) Leukocytosis Code(s): D72.829 - ELEVATED WHITE BLOOD CELL COUNT, UNSPECIFIED (7) Dysuria Code(s): R30.0 - DYSURIA (8) Weakness Code(s): R53.1 - WEAKNESS (9) HTN (hypertension) Code(s): I10 - ESSENTIAL (PRIMARY) HYPERTENSION (10) Chronic UTI (urinary tract infection) Code(s): N39.0 - URINARY TRACT INFECTION, SITE NOT SPECIFIED (11) Poor appetite Assessment/Plan: - RD Consult Bacteremia gram positive patient has gm positive bacteremia plan continue icu care urology and nephrology on case patient improving will change abx to vanco and zosyn for now await for final cx result cc time 45 min
[2016-12-30] MEDS: PIPERACILLIN/TAZOB 2.25 GM 50 ML IVPB SCH (17:02)
[2016-12-30] MEDS ORDERED: CHLORHEXIDINE GLUCONATE 4% CLEANSER FOR DECOLONIZATION TP SCH (22:00)
[2016-12-30] MEDS ORDERED: TAMSULOSIN HCL 0.4 MG CAP.ER.24H (FP) PO SCH (22:00)
[2016-12-30] MEDS: METOPROLOL TARTRATE 25 MG TABLET (FP) PO SCH (22:20)
[2016-12-31] MEDS: DEXTROSE 5%-0.45% SALINE 1,000 ML IV SCH ×3 (01:00→22:40)
[2016-12-31] MEDS: PIPERACILLIN/TAZOB 2.25 GM 50 ML IVPB SCH ×3 (02:00→17:44)
[2016-12-31 05:50] LABS: BASOPHIL 0.3 % (0-2.0); MCH 31.4 pg (25.7-33.7); MCHC 34.5 g/dl (32.0-35.9); MEAN CELL VOLUME 91.1 fl (80-96); MEAN PLT VOLUME 7.5 fl (7.5-11.1); NEUTROPHILS 84.8 % (42.8-82.8); PLATELET COUNT 274 K/MM3 (134-434); RDW 13.4 % (11.9-15.9); WHITE BLOOD COUNT 11.3 K/mm3 (4.0-10.0)
[2016-12-31 06:03] LABS: INR 1.28 (0.82-1.09); PROTHROMBIN TIME (PATIENT) 14.2 SEC (9.98-11.88)
[2016-12-31 06:05] LABS: ACTIVATED PTT 29.1 SECONDS (26.9-34.4)
[2016-12-31 07:28] LABS: ALBUMIN 2.1 g/dl (3.4-5.0); BILIRUBIN,TOTAL 0.4 mg/dL (0.2-1.0); CALCIUM 8.6 mg/dL (8.5-10.1); CREATININE 2.8 mg/dL (0.7-1.3); TOT PROT 4.9 g/dl (6.4-8.2)
[2016-12-31] MEDS: METOPROLOL TARTRATE 25 MG TABLET (FP) PO SCH ×2 (09:32→21:10)
[2016-12-31] MEDS: MAGNESIUM OXIDE 400 MG TABLET (FP) PO SCH (09:32)
[2016-12-31] MEDS: amLODIPine BESYLATE 10 MG TABLET (FP) PO SCH (09:32)
[2016-12-31] MEDS: MUPIROCIN 2% TOPICAL OINTMENT FOR DECOLONIZATION NS SCH ×3 (09:32→21:11)
--- NOTE | 2016-12-31 11:52 | PN ---
Teaching Attending Note Name of Resident: Michael Verduzco ATTENDING PHYSICIAN STATEMENT I saw and evaluated the patient. I reviewed the resident's note and discussed the case with the resident. I agree with the resident's findings and plan as documented. SUBJECTIVE: Patient seen and examined in the ICU. Sleepy but arousable. Denies CP or SOB. Pending renal US. Intake & Output 12/28/16 12/29/16 12/30/16 12/31/16 23:59 23:59 23:59 23:59 Intake Total 4550 1250 Output Total 3600 800 Balance 950 450 Weight 120 lb 85 lb 15.684 oz 90 lb 11.2 oz Last Vital Signs Temp Pulse Resp BP Pulse Ox 97.8 F 70 19 121/55 100 12/31/16 06:00 12/31/16 08:00 12/31/16 08:00 12/31/16 08:00 12/30/16 08:17 Active Medications Acetaminophen (Tylenol -) 650 mg PO Q6H PRN PRN Reason: FEVER OR PAIN Amlodipine Besylate (Norvasc -) 10 mg PO DAILY [facility] Last Admin: 12/31/16 09:32 Dose: 10 mg Chlorhexidine Gluconate (Hibiclens For Decolonization -) 1 applic TP HS [facility] Last Admin: 12/30/16 22:21 Dose: 1 applic Dutasteride (Avodart -) 0.5 mg PO DAILY [facility] Last Admin: 12/30/16 10:44 Dose: 0.5 mg Dextrose/Sodium Chloride (D5-1/2ns -) 1,000 mls @ 100 mls/hr IV ASDIR [facility] Last Admin: 12/31/16 01:00 Dose: 100 mls/hr Piperacillin Sod/Tazobactam Sod (Zosyn 2.25gm Ivpb (Pre-Docked)) 50 mls @ 100 mls/hr IVPB Q8H-IV [facility] PRN Reason: Protocol Last Admin: 12/31/16 09:32 Dose: 100 mls/hr Magnesium Oxide (Mag-Ox -) 400 mg PO DAILY [facility] Last Admin: 12/31/16 09:32 Dose: 400 mg Metoprolol Tartrate (Lopressor -) 25 mg PO BID [facility] Last Admin: 12/31/16 09:32 Dose: 25 mg Mupirocin (Bactroban Ointment (For Decolonization) -) 1 applic NS BID [facility] Stop: 01/04/17 09:59 Last Admin: 12/31/16 09:32 Dose: 1 applic Tamsulosin HCl (Flomax -) 0.4 mg PO [facility] Last Admin: 12/30/16 22:21 Dose: 0.4 mg Constitutional: Yes: Cachectic, NAD Eyes: Yes: PERRL HENT: Yes: WNL Neck: Yes: WNL Cardiovascular: Yes: Tachycardia Respiratory: Yes: Other. No: Rales, Rhonchi, SOB, Wheezes Gastrointestinal: Yes: Normal Bowel Sounds, Other (winces with palpation but denies pain) ...Rectal Exam: Yes: Deferred Renal/: Yes: Mccurdy Present, Hematuria Edema: No Peripheral Pulses WNL: (+2 bilateral pedal pulses) Integumentary: Yes: Tenting Neurological: Yes: Confusion Psychiatric: Yes: Agitated Labs: Laboratory Results - last 24 hr 12/30/16 12/30/16 12/31/16 12:25 12:25 05:00 WBC 11.3 H D RBC 3.46 L D Hgb 10.9 L D Hct 31.5 L D MCV 91.1 MCHC 34.5 RDW 13.4 Plt Count 274 D MPV 7.5 Neutrophils % 84.8 H Lymphocytes % 4.9 L Monocytes % 8.0 D Eosinophils % 2.0 Basophils % 0.3 INR PTT (Actin FS) Sodium 142 Potassium 4.4 Chloride 109 H Carbon Dioxide 20 L Anion Gap 13 BUN 113 H* Creatinine 3.9 H D Creat Clearance w eGFR 15.41 Random Glucose 147 H Lactic Acid Calcium 8.9 Phosphorus 4.9 Magnesium 2.9 H D Total Bilirubin 0.4 AST 3 L ALT 8 L Alkaline Phosphatase 61 Ammonia 21.96 Total Protein 5.2 L Albumin 2.3 L 12/31/16 12/31/16 12/31/16 05:00 05:00 05:00 WBC RBC Hgb Hct MCV MCHC RDW Plt Count MPV Neutrophils % Lymphocytes % Monocytes % Eosinophils % Basophils % INR 1.28 H PTT (Actin FS) 29.1 Sodium Potassium Chloride Carbon Dioxide Anion Gap BUN Creatinine Creat Clearance w eGFR Random Glucose Lactic Acid 1.308 Calcium Phosphorus 3.4 D Magnesium Total Bilirubin AST ALT Alkaline Phosphatase Ammonia Total Protein Albumin 12/31/16 07:05 WBC RBC Hgb Hct MCV MCHC RDW Plt Count MPV Neutrophils % Lymphocytes % Monocytes % Eosinophils % Basophils % INR PTT (Actin FS) Sodium 143 Potassium 4.1 Chloride 111 H Carbon Dioxide 24 Anion Gap 8 BUN 81 H D Creatinine 2.8 H D Creat Clearance w eGFR 22.58 Random Glucose 128 H Lactic Acid Calcium 8.6 Phosphorus Magnesium Total Bilirubin 0.4 AST 7 L D ALT 11 L D Alkaline Phosphatase 56 Ammonia Total Protein 4.9 L Albumin 2.1 L Assessment/Plan Sepsis due to source Compensated metabolic acidosis Metabolic encephalopathy Uremia Polyuria IVF Renal US O2 as needed Follow cultures Strict I&O Flomax VTE prophylaxis Dr Solis CCTime 35"
--- NOTE | 2016-12-31 11:53 | PN ---
Progress Note (short form) - Note Progress Note: Renal Consult for FABIAN on CKD/Hyperkalemia Pt seen and examined in the ICU awake and alert no acute complaints urinating via herrera with good urine output no chest pain, sob, abd pain, N/V/D Vital Signs Temperature 97.8 F 12/31/16 06:00 Pulse Rate 70 12/31/16 08:00 Respiratory Rate 19 12/31/16 08:00 Blood Pressure 121/55 12/31/16 08:00 O2 Sat by Pulse Oximetry (%) 100 12/30/16 08:17 Intake & Output 12/28/16 12/29/16 12/30/16 12/31/16 23:59 23:59 23:59 23:59 Intake Total 4550 1250 Output Total 3600 800 Balance 950 450 Weight 120 lb 85 lb 15.684 oz 90 lb 11.2 oz Gen: NAD, awake and alert HEENT: NC/AT, MMM, No JVD, Neck Supple CVS: RRR, No M/R Lungs: CTA Abd: soft NT/ND Ext: No edema Gu: herrera in place with pink urine Neuro: No focal defects CBC, BMP 12/31/16 05:00 12/31/16 07:05 Laboratory Tests 12/31/16 12/31/16 05:00 07:05 Lactic Acid 1.308 Calcium 8.6 Albumin 2.1 L Current Medications Acetaminophen (Tylenol -) 650 mg PO Q6H PRN PRN Reason: FEVER OR PAIN Amlodipine Besylate (Norvasc -) 10 mg PO DAILY [facility] Last Admin: 12/31/16 09:32 Dose: 10 mg Chlorhexidine Gluconate (Hibiclens For Decolonization -) 1 applic TP HS [facility] Last Admin: 12/30/16 22:21 Dose: 1 applic Dutasteride (Avodart -) 0.5 mg PO DAILY [facility] Last Admin: 12/30/16 10:44 Dose: 0.5 mg Dextrose/Sodium Chloride (D5-1/2ns -) 1,000 mls @ 100 mls/hr IV ASDIR [facility] Last Admin: 12/31/16 01:00 Dose: 100 mls/hr Piperacillin Sod/Tazobactam Sod (Zosyn 2.25gm Ivpb (Pre-Docked)) 50 mls @ 100 mls/hr IVPB Q8H-IV [facility] PRN Reason: Protocol Last Admin: 12/31/16 09:32 Dose: 100 mls/hr Magnesium Oxide (Mag-Ox -) 400 mg PO DAILY [facility] Last Admin: 12/31/16 09:32 Dose: 400 mg Metoprolol Tartrate (Lopressor -) 25 mg PO BID [facility] Last Admin: 12/31/16 09:32 Dose: 25 mg Mupirocin (Bactroban Ointment (For Decolonization) -) 1 applic NS BID [facility] Stop: 01/04/17 09:59 Last Admin: 12/31/16 09:32 Dose: 1 applic Tamsulosin HCl (Flomax -) 0.4 mg PO HS [facility] Last Admin: 12/30/16 22:21 Dose: 0.4 mg A/P 71 year old Gentleman with PMhx of CKD, Hypertension, BPH with PVR, CHF, Aortic Insufficiency, DVT presented with weakness and dysuria and found to have FABIAN with BUN/Cr of 175/6.4 and K of 8. #Acute Kidney Injury on CKD secondary to obstruction at the level of the prostate Renal function with marked improvement with Herrera placement maintain on 1/2NS as pt can have post obstructive diuresis and develop volume depletion No indication for COMMUNICATIONS ADMINISTRATOR at this time Urology follow Trend BUN/Cr and electrolytes #Sepsis/Bactermia Continue Abx as per ID Blood and urine cx grew staph Re dose Vanco by levels (ordered level for the AM) #Hypercalcemia Corrected Ca is 10.1 Ca is improved now Check PTH, Vit D levels, PTH related peptite #Mass lesion on the kidney Management and futher imaging as per urology avoid CT contrast and IV Rj for now given diminished renal function Thank you Flex Lo DO
[2016-12-31] MEDS ORDERED: CALCIUM GLUCONATE 10% - 1,000 MG/10 ML VIAL IVPB ONE (12:16)
[2016-12-31] MEDS ORDERED: CALCITRIOL 0.25 MCG CAPSULE (FP) PO SCH (12:30)
[2016-12-31] MEDS ORDERED: CALCIUM CARBONATE 650 MG TABLET PO SCH (12:30)
[2016-12-31] MEDS: DUTASTERIDE 0.5 MG CAP (FP) PO SCH (14:04)
--- NOTE | 2016-12-31 14:15 | PN ---
Progress Note, Physician History of Present Illness: patient doing well much more calm awake and alert - Current Medication List Current Medications: Active Medications Acetaminophen (Tylenol -) 650 mg PO Q6H PRN PRN Reason: FEVER OR PAIN Amlodipine Besylate (Norvasc -) 10 mg PO DAILY [facility] Last Admin: 12/31/16 09:32 Dose: 10 mg Chlorhexidine Gluconate (Hibiclens For Decolonization -) 1 applic TP HS [facility] Last Admin: 12/30/16 22:21 Dose: 1 applic Dutasteride (Avodart -) 0.5 mg PO DAILY [facility] Last Admin: 12/31/16 14:04 Dose: 0.5 mg Dextrose/Sodium Chloride (D5-1/2ns -) 1,000 mls @ 100 mls/hr IV ASDIR [facility] Last Admin: 12/31/16 01:00 Dose: 100 mls/hr Piperacillin Sod/Tazobactam Sod (Zosyn 2.25gm Ivpb (Pre-Docked)) 50 mls @ 100 mls/hr IVPB Q8H-IV [facility] PRN Reason: Protocol Last Admin: 12/31/16 09:32 Dose: 100 mls/hr Magnesium Oxide (Mag-Ox -) 400 mg PO DAILY [facility] Last Admin: 12/31/16 09:32 Dose: 400 mg Metoprolol Tartrate (Lopressor -) 25 mg PO BID [facility] Last Admin: 12/31/16 09:32 Dose: 25 mg Mupirocin (Bactroban Ointment (For Decolonization) -) 1 applic NS BID [facility] Stop: 01/04/17 09:59 Last Admin: 12/31/16 09:32 Dose: 1 applic Tamsulosin HCl (Flomax -) 0.4 mg PO [facility] Last Admin: 12/30/16 22:21 Dose: 0.4 mg - Objective Vital Signs: Vital Signs Temperature 98.3 F 12/31/16 14:00 Pulse Rate 80 12/31/16 14:00 Respiratory Rate 23 12/31/16 14:00 Blood Pressure 115/53 12/31/16 14:00 O2 Sat by Pulse Oximetry (%) 100 12/30/16 08:17 Constitutional: Yes: No Distress, Calm Cardiovascular: Yes: Regular Rate and Rhythm Respiratory: Yes: Regular, CTA Bilaterally Gastrointestinal: Yes: Normal Bowel Sounds, Soft Genitourinary: Yes: Mccurdy Present Musculoskeletal: Yes: WNL Extremities: Yes: WNL Neurological: Yes: Alert Psychiatric: Yes: Alert Labs: CBC, BMP 12/31/16 05:00 12/31/16 07:05 INR, PTT INR 1.28 (0.82-1.09) H 12/31/16 05:00 Assessment/Plan it is rather odd patient has so much weight loss involuntary so soon patient now looking better Problem List - Problem (1) Sepsis Code(s): A41.9 - SEPSIS, UNSPECIFIED ORGANISM (2) Acute renal failure Code(s): N17.9 - ACUTE KIDNEY FAILURE, UNSPECIFIED Qualifiers: Acute renal failure type: unspecified Qualified Code(s): N17.9 - Acute kidney failure, unspecified (3) Obstructive uropathy Code(s): N13.9 - OBSTRUCTIVE AND REFLUX UROPATHY, UNSPECIFIED (4) Hyperkalemia Code(s): E87.5 - HYPERKALEMIA (5) Lactic acidemia Code(s): E87.2 - ACIDOSIS (6) Leukocytosis Code(s): D72.829 - ELEVATED WHITE BLOOD CELL COUNT, UNSPECIFIED (7) Dysuria Code(s): R30.0 - DYSURIA (8) Weakness Code(s): R53.1 - WEAKNESS (9) HTN (hypertension) Code(s): I10 - ESSENTIAL (PRIMARY) HYPERTENSION (10) Chronic UTI (urinary tract infection) Code(s): N39.0 - URINARY TRACT INFECTION, SITE NOT SPECIFIED (11) Poor appetite Assessment/Plan: - RD Consult Bacteremia gram positive patient has gm positive bacteremia plan continue icu care urology and nephrology on case patient improving continue zosyn will repeat blood cx cx result noted cc time 45 min
--- NOTE | 2016-12-31 16:34 | PN ---
Physical Exam: SUBJECTIVE: Patient seen and examined at bedside in the ICU. He feels better today and no complaint from overnight. Denies fever, chills, n/v, chest pain, sob, abd pain, urinary and bowel sx. OBJECTIVE: Vital Signs Period Temp Pulse Resp BP Sys/Martinez Pulse Ox Last 24 Hr 97.4 F-98.4 F 61-92 16-23 101-131/38-69 GENERAL: Awake, alert, and fully oriented, cachectic, in no cardiopulmonary distress EYES: sclera anicteric, conjunctiva clear. LUNGS: CTAB HEART: RRR, normal S1 and S2 without murmur, rub or gallop. ABDOMEN: Soft, thin, nontender, not distended, normoactive bowel sounds, no guarding, no rebound, no masses LOWER EXTREMITIES: warm, No calf tenderness. No edema : herrera in place with yellow and clear urine ABG Results ABG pH 7.37 (7.35-7.45) 12/30/16 04:16 ABG pCO2 at Pt Temp 23.3 mmHg (35-45) L 12/30/16 04:16 ABG pO2 at Pt Temp 99.3 mmHg (80-100) 12/30/16 04:16 ABG HCO3 13.3 meq/L (22-26) L* 12/30/16 04:16 ABG O2 Sat (Measured) 97.8 % (90-98.9) 12/30/16 04:16 ABG O2 Content 18.6 % vol (15-22) 12/30/16 04:16 ABG Base Excess -10.0 meq/l (-2-2) L 12/30/16 04:16 CBCD WBC 11.3 K/mm3 (4.0-10.0) H D 12/31/16 05:00 RBC 3.46 M/mm3 (4.00-5.60) L D 12/31/16 05:00 Hgb 10.9 GM/dL (11.7-16.9) L D 12/31/16 05:00 Hct 31.5 % (35.4-49) L D 12/31/16 05:00 MCV 91.1 fl (80-96) 12/31/16 05:00 MCHC 34.5 g/dl (32.0-35.9) 12/31/16 05:00 RDW 13.4 % (11.9-15.9) 12/31/16 05:00 Plt Count 274 K/MM3 (134-434) D 12/31/16 05:00 MPV 7.5 fl (7.5-11.1) 12/31/16 05:00 CMP Sodium 143 mmol/L (136-145) 12/31/16 07:05 Potassium 4.1 mmol/L (3.5-5.1) 12/31/16 07:05 Chloride 111 mmol/L (98-107) H 12/31/16 07:05 Carbon Dioxide 24 mmol/L (21-32) 12/31/16 07:05 Anion Gap 8 (8-16) 12/31/16 07:05 BUN 81 mg/dL (7-18) H D 12/31/16 07:05 Creatinine 2.8 mg/dL (0.7-1.3) H D 12/31/16 07:05 Creat Clearance w eGFR 22.58 (>60) 12/31/16 07:05 Calcium 8.6 mg/dL (8.5-10.1) 12/31/16 07:05 Total Bilirubin 0.4 mg/dL (0.2-1.0) 12/31/16 07:05 AST 7 U/L (15-37) L D 12/31/16 07:05 ALT 11 U/L (12-78) L D 12/31/16 07:05 Alkaline Phosphatase 56 U/L (45-117) 12/31/16 07:05 Total Protein 4.9 g/dl (6.4-8.2) L 12/31/16 07:05 Albumin 2.1 g/dl (3.4-5.0) L 12/31/16 07:05 Intake & Output 12/28/16 12/29/16 12/30/16 12/31/16 23:59 23:59 23:59 23:59 Intake Total 4550 1250 Output Total 3600 1400 Balance 950 -150 Weight 54.431 kg 39 kg 41.141 kg Active Medications Generic Name Dose Route Start Last Admin Trade Name Freq PRN Reason Stop Dose Admin Acetaminophen 650 mg 12/30/16 14:18 Tylenol - PO Q6H PRN FEVER OR PAIN Amlodipine Besylate 10 mg 12/30/16 10:00 12/31/16 09:32 Norvasc - PO 10 mg DAILY [facility] Administration Chlorhexidine Gluconate 1 applic 12/30/16 22:00 12/30/16 22:21 Hibiclens For Decolonization - TP 1 applic HS [facility] Administration Dutasteride 0.5 mg 12/30/16 10:00 12/31/16 14:04 Avodart - PO 0.5 mg DAILY [facility] Administration Dextrose/Sodium Chloride 1,000 mls @ 100 mls/hr 12/30/16 07:00 12/31/16 01:00 D5-1/2ns - IV 100 mls/hr ASDIR [facility] Administration Piperacillin Sod/Tazobactam Sod 50 mls @ 100 mls/hr 12/30/16 18:00 12/31/16 09: 32 Zosyn 2.25gm Ivpb (Pre-Docked) IVPB 100 mls/hr Q8H-IV [facility] Administration Protocol Magnesium Oxide 400 mg 12/30/16 10:00 12/31/16 09:32 Mag-Ox - PO 400 mg DAILY [facility] Administration Metoprolol Tartrate 25 mg 12/30/16 22:00 12/31/16 09:32 Lopressor - PO 25 mg BID [facility] Administration Mupirocin 1 applic 12/30/16 10:00 12/31/16 09:32 Bactroban Ointment (For Decolonization) - NS 01/04/17 09:59 1 applic BID [facility] Administration Tamsulosin HCl 0.4 mg 12/30/16 22:00 12/30/16 22:21 Flomax - PO 0.4 mg HS [facility] Administration Microbiology 12/29/16 20:19 Urine - Urine Clean Catch Urine Culture - Preliminary Staphylococcus Coagulase Neg 12/29/16 20:25 Blood - Peripheral Venous Blood Culture - Preliminary Staphylococcus Coagulase Neg 12/29/16 20:25 Blood - Peripheral Venous Blood Culture - Preliminary Staphylococcus Coagulase Neg Imaging CT Abd on 12/30: Marked renal hydronephrosis without evidence of hydroureter suggestive of uteropelvic junction stenosis. Over distended urinary bladder with significant thickening of its wall and trabeculations. Slightly enlarged prostate gland Gallstones without CT evidence of acute cholecystitis. R calcified aneurysm vs. calcified mass lesion CXR on 12/30: Cardiomegaly with no acute pathology ASSESSMENT/PLAN: 71 yo M w/ h/o HTN, bilateral hydronephrosis, recurrent UTI, CHF, aortic insufficiency and DVT admitted to ICU for severe sepsis 2/2 complicated UTI. ID: Severe sepsis 2/2 UTI, complicated - WBC trending down and remain afrebile - On Vancomycin and Zosyn day 2 - Prelim blood cultures growing coagulase -ve Staph * awaiting final report - Lactic acid normalized - Cont. to monitor CBC Renal: FABIAN on CKD; renal malignancy vs. obstructive uropathy - Baseline Cr 2.6 * Good urine output * Cr today near baseline - FeNa 1.7 suggests intrinsic renal - Malignancy vs. Obstructive * acute weight loss 30lbs in 1 month * calcified mass vs. aneurysm on CT * underlying BPH and b/l hydronephrosis on CT - Renal U/S pending official read Cardio: EKG change 2/2 hyperkalemia - Resolved - Cont. cardiac monitoring - EKG : BPH - On avodart and flomax FEN - Cont. D5W-1/2NS - hypercalcemia (corrected) likely 2/2 malignancy * cont. to monitor - Protein/sodium controlled diet Prophylaxis - DVT: heparin SQ 5000 TID - GI: not indicated Disposition - Transfer to Med-surg Code status - Full code Visit type - Emergency Visit Emergency Visit: No - New Patient This patient is new to me today: No - Critical Care Critical Care patient: Yes Total Critical Care Time (in minutes): 45 Critical Care Statement: The care of this patient involved high complexity decision making to prevent further life threatening deterioration of the patient 's condition and/or to evalute & treat vital organ system(s) failure or risk of failure.
[2016-12-31] MEDS ORDERED: ACETAMINOPHEN 325 MG TABLET (FP) PO PRN (19:26)
--- NOTE | 2016-12-31 19:30 | PN ---
Physical Exam: SUBJECTIVE: Patient seen and examined at bedside. Offers no complaints. OBJECTIVE: Vital Signs Period Temp Pulse Resp BP Sys/Martinez Pulse Ox Last 24 Hr 97.4 F-98.4 F 61-95 16-23 101-131/38-69 GENERAL: The patient is awake, alert, and fully oriented, in no acute distress. HEAD: Normal with no signs of trauma. EYES: PERRL, extraocular movements intact, sclera anicteric, conjunctiva clear. No ptosis. ENT: Ears normal, nares patent, oropharynx clear without exudates, moist mucous membranes. NECK: Trachea midline, full range of motion, supple. LUNGS: Breath sounds equal, clear to auscultation bilaterally, no wheezes, no crackles, no accessory muscle use. HEART: Regular rate and rhythm, S1, S2 without murmur, rub or gallop. ABDOMEN: Soft, nontender, nondistended, normoactive bowel sounds, no guarding, no rebound, no hepatosplenomegaly, no masses. EXTREMITIES: 2+ pulses, warm, well-perfused, no edema. NEUROLOGICAL: Cranial nerves II through XII grossly intact. Normal speech, gait not observed. Laboratory Results - last 24 hr 12/31/16 12/31/16 12/31/16 05:00 05:00 05:00 WBC 11.3 H D RBC 3.46 L D Hgb 10.9 L D Hct 31.5 L D MCV 91.1 MCHC 34.5 RDW 13.4 Plt Count 274 D MPV 7.5 Neutrophils % 84.8 H Lymphocytes % 4.9 L Monocytes % 8.0 D Eosinophils % 2.0 Basophils % 0.3 INR 1.28 H PTT (Actin FS) 29.1 Sodium Potassium Chloride Carbon Dioxide Anion Gap BUN Creatinine Creat Clearance w eGFR Random Glucose Lactic Acid Calcium Phosphorus 3.4 D Total Bilirubin AST ALT Alkaline Phosphatase Total Protein Albumin 12/31/16 12/31/16 05:00 07:05 WBC RBC Hgb Hct MCV MCHC RDW Plt Count MPV Neutrophils % Lymphocytes % Monocytes % Eosinophils % Basophils % INR PTT (Actin FS) Sodium 143 Potassium 4.1 Chloride 111 H Carbon Dioxide 24 Anion Gap 8 BUN 81 H D Creatinine 2.8 H D Creat Clearance w eGFR 22.58 Random Glucose 128 H Lactic Acid 1.308 Calcium 8.6 Phosphorus Total Bilirubin 0.4 AST 7 L D ALT 11 L D Alkaline Phosphatase 56 Total Protein 4.9 L Albumin 2.1 L Active Medications Generic Name Dose Route Start Last Admin Trade Name Freq PRN Reason Stop Dose Admin Acetaminophen 650 mg 12/31/16 19:26 Tylenol - PO Q6H PRN FEVER OR PAIN Amlodipine Besylate 10 mg 01/01/17 10:00 Norvasc - PO DAILY [facility] Chlorhexidine Gluconate 1 applic 12/31/16 22:00 Hibiclens For Decolonization - TP [facility] Dutasteride 0.5 mg 01/01/17 10:00 Avodart - PO DAILY [facility] Dextrose/Sodium Chloride 1,000 mls @ 100 mls/hr 12/31/16 19:26 D5-1/2ns - IV ASDIR [facility] Piperacillin Sod/Tazobactam Sod 50 mls @ 100 mls/hr 01/01/17 02:00 Zosyn 2.25gm Ivpb (Pre-Docked) IVPB Q8H-IV [facility] Protocol Magnesium Oxide 400 mg 01/01/17 10:00 Mag-Ox - PO DAILY [facility] Metoprolol Tartrate 25 mg 12/31/16 22:00 Lopressor - PO BID [facility] Mupirocin 1 applic 12/31/16 22:00 Bactroban Ointment (For Decolonization) - NS 01/04/17 09:59 BID [facility] Tamsulosin HCl 0.4 mg 12/31/16 22:00 Flomax - PO [facility] Microbiology 12/31/16 17:00 Blood - Peripheral Venous Blood Culture - Preliminary NO GROWTH OBTAINED AFTER 24 HOURS, INCUBATION TO CONTINUE FOR 4 DAYS. 12/31/16 14:45 Blood - Peripheral Venous Blood Culture - Preliminary NO GROWTH OBTAINED AFTER 24 HOURS, INCUBATION TO CONTINUE FOR 4 DAYS. 12/29/16 20:19 Urine - Urine Clean Catch Urine Culture - Final Staphylococcus Aureus 12/29/16 20:25 Blood - Peripheral Venous Blood Culture - Preliminary Staphylococcus Coagulase Neg 12/29/16 20:25 Blood - Peripheral Venous Blood Culture - Preliminary Staphylococcus Coagulase Neg 12/30/16 04:45 Nasopharyngeal Swab Respiratory Virus Panel - Preliminary 12/30/16 04:45 Nasopharyngeal Swab Influenza Types A,B Antigen (SHELBY) - Final 12/30/16 04:45 Nasopharyngeal Swab - Final Imaging CT Abd on 12/30: Marked renal hydronephrosis without evidence of hydroureter suggestive of uteropelvic junction stenosis. Over distended urinary bladder with significant thickening of its wall and trabeculations. Slightly enlarged prostate gland. ASSESSMENT/PLAN: 71 year-old man with a PMH of HTN, diastolic HF, h/o DVT, CKD, and BPH admitted for FABIAN, UTI, sepsis, urinary retention, bilateral hydronephrosis, and possible renal mass. Sepsis secondary to UTI --urine culture pending --continue Zosyn Lactic acidosis --resolved FABIAN on CKD secondary to post-renal obstruction --Cr 6.4, was 2.6 on 11/14/13 --herrera placed with cloudy pink urine with clots Diastolic heart failure --12/31 Echo: moderate concentric LVH, EF normal, no RWMA seen but poor views ; trace TR; mild TR; moderate to severe AI; no pericardial effusion Hyperkalemia, resolved Visit type - Emergency Visit Emergency Visit: Yes ED Registration Date: 12/30/16 Care time: The patient presented to the Emergency Department on the above date and was hospitalized for further evaluation of their emergent condition. - New Patient This patient is new to me today: Yes Date on this admission: 01/02/17 - Critical Care Critical Care patient: No
[2016-12-31] MEDS: CHLORHEXIDINE GLUCONATE 4% CLEANSER FOR DECOLONIZATION TP SCH (21:11)
[2016-12-31] MEDS: TAMSULOSIN HCL 0.4 MG CAP.ER.24H (FP) PO SCH (21:11)
[2017-01-01] MEDS: PIPERACILLIN/TAZOB 2.25 GM 50 ML IVPB SCH ×2 (02:30→09:08)
[2017-01-01 07:51] LABS: MCH 31.2 pg (25.7-33.7); MCHC 33.8 g/dl (32.0-35.9); MEAN CELL VOLUME 92.4 fl (80-96); MEAN PLT VOLUME 7.2 fl (7.5-11.1); PLATELET COUNT 237 K/MM3 (134-434); RDW 13.4 % (11.9-15.9); WHITE BLOOD COUNT 10.6 K/mm3 (4.0-10.0)
[2017-01-01 08:11] LABS: CALCIUM 8.6 mg/dL (8.5-10.1); CREATININE 2.1 mg/dL (0.7-1.3)
[2017-01-01] MEDS ORDERED: PT OWN MED DRAWER 7, Y5N ONE (08:59)
[2017-01-01] MEDS: MUPIROCIN 2% TOPICAL OINTMENT FOR DECOLONIZATION NS SCH (09:09)
[2017-01-01] MEDS: DUTASTERIDE 0.5 MG CAP (FP) PO SCH (09:09)
[2017-01-01] MEDS: METOPROLOL TARTRATE 25 MG TABLET (FP) PO SCH ×2 (09:09→21:33)
[2017-01-01] MEDS: MAGNESIUM OXIDE 400 MG TABLET (FP) PO SCH (09:10)
[2017-01-01] MEDS: amLODIPine BESYLATE 10 MG TABLET (FP) PO SCH (09:10)
[2017-01-01] MEDS: DEXTROSE 5%-0.45% SALINE 1,000 ML IV SCH (11:29)
--- NOTE | 2017-01-01 11:53 | PN ---
Progress Note, Physician History of Present Illness: No new complaints - Current Medication List Current Medications: Active Medications Acetaminophen (Tylenol -) 650 mg PO Q6H PRN PRN Reason: FEVER OR PAIN Amlodipine Besylate (Norvasc -) 10 mg PO DAILY [facility] Last Admin: 01/01/17 09:10 Dose: 10 mg Chlorhexidine Gluconate (Hibiclens For Decolonization -) 1 applic TP [facility] Last Admin: 12/31/16 21:11 Dose: 1 applic Dutasteride (Avodart -) 0.5 mg PO DAILY [facility] Last Admin: 01/01/17 09:09 Dose: 0.5 mg Dextrose/Sodium Chloride (D5-1/2ns -) 1,000 mls @ 100 mls/hr IV ASDIR [facility] Last Admin: 01/01/17 11:29 Dose: 100 mls/hr Piperacillin Sod/Tazobactam Sod (Zosyn 2.25gm Ivpb (Pre-Docked)) 50 mls @ 100 mls/hr IVPB Q8H-IV [facility] PRN Reason: Protocol Last Admin: 01/01/17 09:08 Dose: 100 mls/hr Magnesium Oxide (Mag-Ox -) 400 mg PO DAILY [facility] Last Admin: 01/01/17 09:10 Dose: 400 mg Metoprolol Tartrate (Lopressor -) 25 mg PO BID [facility] Last Admin: 01/01/17 09:09 Dose: 25 mg Mupirocin (Bactroban Ointment (For Decolonization) -) 1 applic NS BID [facility] Stop: 01/04/17 09:59 Last Admin: 01/01/17 09:09 Dose: Not Given Tamsulosin HCl (Flomax -) 0.4 mg PO [facility] Last Admin: 12/31/16 21:11 Dose: 0.4 mg - Objective Vital Signs: Vital Signs Temperature 98.4 F 01/01/17 06:00 Pulse Rate 70 01/01/17 06:00 Respiratory Rate 18 01/01/17 06:00 Blood Pressure 143/54 01/01/17 06:00 O2 Sat by Pulse Oximetry (%) 100 12/30/16 08:17 Constitutional: Yes: No Distress Eyes: Yes: Conjunctiva Clear HENT: Yes: Atraumatic Neck: Yes: Supple Cardiovascular: Yes: Regular Rate and Rhythm, Murmur (diastolic) Respiratory: Yes: CTA Bilaterally Gastrointestinal: Yes: Normal Bowel Sounds, Soft. No: Tenderness Edema: No Peripheral Pulses WNL: Yes Neurological: Yes: Alert, Oriented Psychiatric: Yes: Alert, Oriented Labs: CBC, BMP 01/01/17 06:20 01/01/17 06:20 INR, PTT INR 1.28 (0.82-1.09) H 12/31/16 05:00 - ....Imaging Other: Other (Echo (12/30/16): Mod conc LVH. Normal LV size an dfunction. Normal right heart. Trace MR. Mild TR. Mod-sev AI. Mild AR dilation) Assessment/Plan 71 yo male with the above history, here with weakness, dysuria and polyuria for several weeks -. reported having had "the flu" about a month ago with diarrhea and reduced PO intake x 1 month. At [place] [facility] -> found with WBC 22.4, Potassium of 8.0, BUN/Cr 175/6.4 and +UA -> IVF, Calcium, d50/10U insulin/ kayexalate and Zosyn -> Abd/Pelvic CT -> b/l hydro -> transferred to [facility] ICU for further management. Patient is much better No evidence of ACS or CHF EKG had widened QRS and inf-lateral St-T changes in setting of LVH -> QRS narrowed after treatment Echo was 12/30/16 -. nl LV size and function and mod-sev AI No CHF Was a bit tachycardic -. better BB resumed Staph coag neg bacteremia and staph UTI -. abx Today, 01/01/17, continues to improve Rec: Continue current management Per IM/renal/ Will need oupt follow-up with us -. needs at least yearly echo (pt has not been compliant with that recommendation) Thanks! we'll follow prn!
--- NOTE | 2017-01-01 12:10 | PN ---
Progress Note, Physician Chief Complaint: Patient in bed. Comfortable. Maintains excellent urine output. Renal functions slowly improving towards his baseline. No chest pain/ No shortness of breath. Serum electrolytes improving. DU w/u in progress. - Current Medication List Current Medications: Active Medications Acetaminophen (Tylenol -) 650 mg PO Q6H PRN PRN Reason: FEVER OR PAIN Amlodipine Besylate (Norvasc -) 10 mg PO DAILY [facility] Last Admin: 01/01/17 09:10 Dose: 10 mg Chlorhexidine Gluconate (Hibiclens For Decolonization -) 1 applic TP HS [facility] Last Admin: 12/31/16 21:11 Dose: 1 applic Dutasteride (Avodart -) 0.5 mg PO DAILY [facility] Last Admin: 01/01/17 09:09 Dose: 0.5 mg Dextrose/Sodium Chloride (D5-1/2ns -) 1,000 mls @ 100 mls/hr IV ASDIR [facility] Last Admin: 01/01/17 11:29 Dose: 100 mls/hr Piperacillin Sod/Tazobactam Sod (Zosyn 2.25gm Ivpb (Pre-Docked)) 50 mls @ 100 mls/hr IVPB Q8H-IV [facility] PRN Reason: Protocol Last Admin: 01/01/17 09:08 Dose: 100 mls/hr Magnesium Oxide (Mag-Ox -) 400 mg PO DAILY [facility] Last Admin: 01/01/17 09:10 Dose: 400 mg Metoprolol Tartrate (Lopressor -) 25 mg PO BID [facility] Last Admin: 01/01/17 09:09 Dose: 25 mg Mupirocin (Bactroban Ointment (For Decolonization) -) 1 applic NS BID [facility] Stop: 01/04/17 09:59 Last Admin: 01/01/17 09:09 Dose: Not Given Tamsulosin HCl (Flomax -) 0.4 mg PO [facility] Last Admin: 12/31/16 21:11 Dose: 0.4 mg - Objective Vital Signs: Vital Signs Temperature 98.5 F 01/01/17 10:00 Pulse Rate 76 01/01/17 10:00 Respiratory Rate 20 01/01/17 10:00 Blood Pressure 133/53 01/01/17 10:00 O2 Sat by Pulse Oximetry (%) 100 12/30/16 08:17 Constitutional: Yes: No Distress, Calm Eyes: Yes: Conjunctiva Clear Neck: Yes: Decreased ROM Cardiovascular: Yes: Regular Rate and Rhythm, S1, S2 Respiratory: Yes: CTA Bilaterally, Poor Air Entry Gastrointestinal: Yes: Normal Bowel Sounds, Soft Musculoskeletal: Yes: Back Pain Neurological: Yes: Alert, Oriented Psychiatric: Yes: Alert, Oriented Labs: CBC, BMP 01/01/17 06:20 01/01/17 06:20 INR, PTT INR 1.28 (0.82-1.09) H 12/31/16 05:00 Problem List - Problems (1) Acute renal failure Code(s): N17.9 - ACUTE KIDNEY FAILURE, UNSPECIFIED Qualifiers: Acute renal failure type: unspecified Qualified Code(s): N17.9 - Acute kidney failure, unspecified (2) Chronic UTI (urinary tract infection) Code(s): N39.0 - URINARY TRACT INFECTION, SITE NOT SPECIFIED (3) HTN (hypertension) Code(s): I10 - ESSENTIAL (PRIMARY) HYPERTENSION (4) Obstructive uropathy Code(s): N13.9 - OBSTRUCTIVE AND REFLUX UROPATHY, UNSPECIFIED (5) Weakness Code(s): R53.1 - WEAKNESS Assessment/Plan 71 y/o male with: Acute severe Azotemia. Improving. The patient has advanced CKD, and the renal functions are improving towards his baseline. Acute severe Hyperkalemia. Has resolved. Right Renal mass. Needs further evaluation. evaluation in progress. Hypercalcemia ( Corrected) persists. w/u in progress. On Amlodipine for the Hypertension. Will watch. Thanks again. Will follow with you. Libby Whitt MD
[2017-01-01] MEDS ORDERED: VANCOMYCIN 750 MG in DEXTROSE 5%-WATER - 250 ML IVPB ONE ×2 (13:15→14:15)
--- NOTE | 2017-01-01 13:17 | PN ---
Progress Note, Physician History of Present Illness: patient doing well much more calm awake and alert urine looks much better patient having dirrhoea - Current Medication List Current Medications: Active Medications Acetaminophen (Tylenol -) 650 mg PO Q6H PRN PRN Reason: FEVER OR PAIN Amlodipine Besylate (Norvasc -) 10 mg PO DAILY [facility] Last Admin: 01/01/17 09:10 Dose: 10 mg Chlorhexidine Gluconate (Hibiclens For Decolonization -) 1 applic TP HS [facility] Last Admin: 12/31/16 21:11 Dose: 1 applic Dutasteride (Avodart -) 0.5 mg PO DAILY [facility] Last Admin: 01/01/17 09:09 Dose: 0.5 mg Dextrose/Sodium Chloride (D5-1/2ns -) 1,000 mls @ 100 mls/hr IV ASDIR [facility] Last Admin: 01/01/17 11:29 Dose: 100 mls/hr Piperacillin Sod/Tazobactam Sod (Zosyn 2.25gm Ivpb (Pre-Docked)) 50 mls @ 100 mls/hr IVPB Q8H-IV [facility] PRN Reason: Protocol Last Admin: 01/01/17 09:08 Dose: 100 mls/hr Magnesium Oxide (Mag-Ox -) 400 mg PO DAILY [facility] Last Admin: 01/01/17 09:10 Dose: 400 mg Metoprolol Tartrate (Lopressor -) 25 mg PO BID [facility] Last Admin: 01/01/17 09:09 Dose: 25 mg Mupirocin (Bactroban Ointment (For Decolonization) -) 1 applic NS BID [facility] Stop: 01/04/17 09:59 Last Admin: 01/01/17 09:09 Dose: Not Given Tamsulosin HCl (Flomax -) 0.4 mg PO [facility] Last Admin: 12/31/16 21:11 Dose: 0.4 mg - Objective Vital Signs: Vital Signs Temperature 98.5 F 01/01/17 10:00 Pulse Rate 76 01/01/17 10:00 Respiratory Rate 20 01/01/17 10:00 Blood Pressure 133/53 01/01/17 10:00 O2 Sat by Pulse Oximetry (%) 100 12/30/16 08:17 Constitutional: Yes: No Distress, Calm Cardiovascular: Yes: Regular Rate and Rhythm Respiratory: Yes: Regular, CTA Bilaterally Gastrointestinal: Yes: Normal Bowel Sounds, Soft Musculoskeletal: Yes: WNL Extremities: Yes: WNL Neurological: Yes: Alert, Oriented Psychiatric: Yes: Alert Labs: CBC, BMP 01/01/17 06:20 01/01/17 06:20 INR, PTT INR 1.28 (0.82-1.09) H 12/31/16 05:00 Assessment/Plan it is rather odd patient has so much weight loss involuntary so soon patient now looking better Problem List - Problem (1) Sepsis Code(s): A41.9 - SEPSIS, UNSPECIFIED ORGANISM (2) Acute renal failure Code(s): N17.9 - ACUTE KIDNEY FAILURE, UNSPECIFIED Qualifiers: Acute renal failure type: unspecified Qualified Code(s): N17.9 - Acute kidney failure, unspecified (3) Obstructive uropathy Code(s): N13.9 - OBSTRUCTIVE AND REFLUX UROPATHY, UNSPECIFIED (4) Hyperkalemia Code(s): E87.5 - HYPERKALEMIA (5) Lactic acidemia Code(s): E87.2 - ACIDOSIS (6) Leukocytosis Code(s): D72.829 - ELEVATED WHITE BLOOD CELL COUNT, UNSPECIFIED (7) Dysuria Code(s): R30.0 - DYSURIA (8) Weakness Code(s): R53.1 - WEAKNESS (9) HTN (hypertension) Code(s): I10 - ESSENTIAL (PRIMARY) HYPERTENSION (10) Chronic UTI (urinary tract infection) Code(s): N39.0 - URINARY TRACT INFECTION, SITE NOT SPECIFIED (11) Poor appetite Assessment/Plan: - RD Consult Bacteremia gram positive patient has gm positive bacteremia plan stool for cdiff will stop zosyn vanco to continue await for repeat blood cx rest ct s per [place]
[2017-01-01] MEDS ORDERED: VANCOMYCIN 750 MG in DEXTROSE 5%-WATER - 100 ML IVPB ONE (14:15)
--- NOTE | 2017-01-01 21:23 | PN ---
Physical Exam: SUBJECTIVE: Patient seen and examined. Offers no complaints. OBJECTIVE: Vital Signs Period Temp Pulse Resp BP Sys/Martinez Pulse Ox Last 24 Hr 98.2 F-98.5 F 70-78 16-20 130-143/46-54 GENERAL: The patient is awake, alert, and fully oriented, in no acute distress. HEAD: Normal with no signs of trauma. EYES: PERRL, extraocular movements intact, sclera anicteric, conjunctiva clear. No ptosis. ENT: Ears normal, nares patent, oropharynx clear without exudates, moist mucous membranes. NECK: Trachea midline, full range of motion, supple. LUNGS: Breath sounds equal, clear to auscultation bilaterally, no wheezes, no crackles, no accessory muscle use. HEART: Regular rate and rhythm, S1, S2 without murmur, rub or gallop. ABDOMEN: Soft, nontender, nondistended, normoactive bowel sounds, no guarding, no rebound, no hepatosplenomegaly, no masses. EXTREMITIES: 2+ pulses, warm, well-perfused, no edema. NEUROLOGICAL: Cranial nerves II through XII grossly intact. Normal speech, gait not observed. Laboratory Results - last 24 hr 01/01/17 01/01/17 06:20 06:20 WBC 10.6 H RBC 3.68 L Hgb 11.5 L Hct 34.0 L MCV 92.4 MCHC 33.8 RDW 13.4 Plt Count 237 MPV 7.2 L Sodium 141 Potassium 3.6 Chloride 108 H Carbon Dioxide 25 Anion Gap 8 BUN 48 H D Creatinine 2.1 H D Random Glucose 109 H Calcium 8.6 Current Medications Generic Name Dose Route Start Last Admin Trade Name Freq PRN Reason Stop Dose Admin Acetaminophen 650 mg 12/31/16 19:26 Tylenol - PO Q6H PRN FEVER OR PAIN Amlodipine Besylate 10 mg 01/01/17 10:00 01/02/17 09:57 Norvasc - PO 10 mg DAILY [facility] Administration Chlorhexidine Gluconate 1 applic 12/31/16 22:00 01/02/17 01:01 Hibiclens For Decolonization - TP Not Given HS [facility] Dutasteride 0.5 mg 01/01/17 10:00 01/02/17 09:57 Avodart - PO 0.5 mg DAILY [facility] Administration Dextrose/Sodium Chloride 1,000 mls @ 100 mls/hr 12/31/16 19:26 01/02/17 10:00 D5-1/2ns - IV 100 mls/hr ASDIR [facility] Administration Magnesium Oxide 400 mg 01/01/17 10:00 01/02/17 09:57 Mag-Ox - PO 400 mg DAILY [facility] Administration Metoprolol Tartrate 25 mg 12/31/16 22:00 01/02/17 09:57 Lopressor - PO 25 mg BID [facility] Administration Tamsulosin HCl 0.4 mg 12/31/16 22:00 01/01/17 21:33 Flomax - PO 0.4 mg HS [facility] Administration Imaging CT Abd on 12/30: Marked renal hydronephrosis without evidence of hydroureter suggestive of uteropelvic junction stenosis. Over distended urinary bladder with significant thickening of its wall and trabeculations. Slightly enlarged prostate gland. ASSESSMENT/PLAN: 71 year-old man with a PMH of HTN, diastolic HF, h/o DVT, CKD, and BPH admitted for FABIAN, UTI, sepsis, urinary retention, bilateral hydronephrosis, and possible renal mass. Sepsis secondary to MSSA UTI --stop Zosyn, continue Vanc --ID following Lactic acidosis --resolved FABIAN on CKD secondary to post-renal obstruction --Cr 6.4 on admission, now 2.8 --herrera draining clear urine Diastolic heart failure --12/31 Echo: moderate concentric LVH, EF normal, no RWMA seen but poor views ; trace TR; mild TR; moderate to severe AI; no pericardial effusion --no diuresis F/E/N Fluids: PO intake adequate Electrolytes: replete as indicated Nutrition: low sodium DVT prophylaxis: subq heparin, SCDs, oob, ambulation PT evaluation Dispo: continues to require inpatient care. Full Code. Visit type - Emergency Visit Emergency Visit: Yes ED Registration Date: 12/30/16 Care time: The patient presented to the Emergency Department on the above date and was hospitalized for further evaluation of their emergent condition. - New Patient This patient is new to me today: No - Critical Care Critical Care patient: No
[2017-01-01] MEDS: TAMSULOSIN HCL 0.4 MG CAP.ER.24H (FP) PO SCH (21:33)
[2017-01-02] MEDS: MUPIROCIN 2% TOPICAL OINTMENT FOR DECOLONIZATION NS SCH (01:00)
[2017-01-02] MEDS: CHLORHEXIDINE GLUCONATE 4% CLEANSER FOR DECOLONIZATION TP SCH (01:01)
[2017-01-02 07:28] LABS: BASOPHIL 0.7 % (0-2.0); EOSINOPHIL 3.5 % (0-4.5); MCH 31.1 pg (25.7-33.7); MCHC 33.9 g/dl (32.0-35.9); MEAN CELL VOLUME 91.9 fl (80-96); MEAN PLT VOLUME 7.4 fl (7.5-11.1); NEUTROPHILS 81.2 % (42.8-82.8); PLATELET COUNT 219 K/MM3 (134-434); RDW 13.4 % (11.9-15.9); WHITE BLOOD COUNT 10.2 K/mm3 (4.0-10.0)
[2017-01-02 08:18] LABS: ALBUMIN 1.9 g/dl (3.4-5.0); CALCIUM 8.1 mg/dL (8.5-10.1); MAGNESIUM 1.6 mg/dL (1.8-2.4)
[2017-01-02 08:24] LABS: BILIRUBIN,TOTAL 0.4 mg/dL (0.2-1.0); CREATININE 1.6 mg/dL (0.7-1.3); PHOSPHOROUS 2.3 mg/dL (2.5-4.9); TOT PROT 4.6 g/dl (6.4-8.2)
--- NOTE | 2017-01-02 09:30 | PN ---
Physical Exam: SUBJECTIVE: Patient seen and examined oob to chair. Legs feel weak from being in bed. OBJECTIVE: Vital Signs Period Temp Pulse Resp BP Sys/Martinez Pulse Ox Last 24 Hr 98.2 F-98.8 F 71-85 16-20 128-139/46-76 GENERAL: The patient is awake, alert, and fully oriented, in no acute distress. HEAD: Normal with no signs of trauma. EYES: PERRL, extraocular movements intact, sclera anicteric, conjunctiva clear. No ptosis. LUNGS: Breath sounds equal, clear to auscultation bilaterally, no wheezes, no crackles, no accessory muscle use. HEART: Regular rate and rhythm, S1, S2 without murmur, rub or gallop. ABDOMEN: Soft, nontender, nondistended, normoactive bowel sounds, no guarding, no rebound, no hepatosplenomegaly, no masses. EXTREMITIES: 2+ pulses, warm, well-perfused, no edema. NEUROLOGICAL: Cranial nerves II through XII grossly intact. Normal speech, gait not observed. PSYCH: Normal mood, normal affect. SKIN: Warm, dry, normal turgor, no rashes or lesions noted. Allevyn sacral dressing in place for protection. Skin below dressing is intact. Laboratory Results - last 24 hr 01/02/17 01/02/17 06:45 06:45 WBC 10.2 H RBC 3.35 L Hgb 10.4 L Hct 30.8 L MCV 91.9 MCHC 33.9 RDW 13.4 Plt Count 219 MPV 7.4 L Neutrophils % 81.2 Lymphocytes % 6.5 L D Monocytes % 8.1 Eosinophils % 3.5 Basophils % 0.7 Sodium 139 Potassium 3.8 Chloride 107 Carbon Dioxide 23 Anion Gap 9 BUN 31 H D Creatinine 1.6 H D Creat Clearance w eGFR 42.95 Random Glucose 98 Calcium 8.1 L Phosphorus 2.3 L D Magnesium 1.6 L D Total Bilirubin 0.4 AST 12 L D ALT 13 Alkaline Phosphatase 50 Total Protein 4.6 L Albumin 1.9 L Active Medications Generic Name Dose Route Start Last Admin Trade Name Freq PRN Reason Stop Dose Admin Acetaminophen 650 mg 12/31/16 19:26 Tylenol - PO Q6H PRN FEVER OR PAIN Amlodipine Besylate 10 mg 01/01/17 10:00 01/01/17 09:10 Norvasc - PO 10 mg DAILY [facility] Administration Chlorhexidine Gluconate 1 applic 12/31/16 22:00 01/02/17 01:01 Hibiclens For Decolonization - TP Not Given HS [facility] Dutasteride 0.5 mg 01/01/17 10:00 01/01/17 09:09 Avodart - PO 0.5 mg DAILY [facility] Administration Dextrose/Sodium Chloride 1,000 mls @ 100 mls/hr 12/31/16 19:26 01/02/17 00:00 D5-1/2ns - IV 100 mls/hr ASDIR [facility] Administration Magnesium Oxide 400 mg 01/01/17 10:00 01/01/17 09:10 Mag-Ox - PO 400 mg DAILY [facility] Administration Metoprolol Tartrate 25 mg 12/31/16 22:00 01/01/17 21:33 Lopressor - PO 25 mg BID [facility] Administration Tamsulosin HCl 0.4 mg 12/31/16 22:00 01/01/17 21:33 Flomax - PO 0.4 mg HS [facility] Administration Imaging CT Abd on 12/30: Marked renal hydronephrosis without evidence of hydroureter suggestive of uteropelvic junction stenosis. Over distended urinary bladder with significant thickening of its wall and trabeculations. Slightly enlarged prostate gland. ASSESSMENT/PLAN: 71 year-old man with a PMH of HTN, diastolic HF, h/o DVT, CKD, and BPH admitted for FABIAN, UTI, sepsis, urinary retention, bilateral hydronephrosis, and possible renal mass. MSSA UTI Sepsis resolved --Zosyn (12/29-01/01); ceftriaxone (12/30); vanco (01/01) --ID following Lactic acidosis --resolved FABIAN on CKD secondary to post-renal obstruction BPH --Cr 6.4 on admission, now 1.6 --needs TURP but will need to get workup as outpatient: possible renal aneurysm evaluation, cardiology clearance --discharge to home with herrera Diastolic heart failure --12/31 Echo: moderate concentric LVH, EF normal, no RWMA seen but poor views ; trace TR; mild TR; moderate to severe AI; no pericardial effusion --no diuresis Malnutrition related to acute illness --poor PO intake --significant weight loss of 25% x 6 months --consuming <75% of meals > 1 month --thin appearance --low BMI F/E/N Fluids: PO intake adequate Electrolytes: replete as indicated Nutrition: low sodium, Ensure Enlive daily DVT prophylaxis: subq heparin, SCDs, oob, ambulation PT evaluation Dispo: continues to require inpatient care. Full Code. Visit type - Emergency Visit Emergency Visit: Yes ED Registration Date: 12/30/16 Care time: The patient presented to the Emergency Department on the above date and was hospitalized for further evaluation of their emergent condition. - New Patient This patient is new to me today: No - Critical Care Critical Care patient: No
[2017-01-02] MEDS: METOPROLOL TARTRATE 25 MG TABLET (FP) PO SCH ×2 (09:57→21:17)
[2017-01-02] MEDS: DUTASTERIDE 0.5 MG CAP (FP) PO SCH (09:57)
[2017-01-02] MEDS: amLODIPine BESYLATE 10 MG TABLET (FP) PO SCH (09:57)
[2017-01-02] MEDS: MAGNESIUM OXIDE 400 MG TABLET (FP) PO SCH (09:57)
[2017-01-02] MEDS: DEXTROSE 5%-0.45% SALINE 1,000 ML IV SCH ×2 (10:00)
--- NOTE | 2017-01-02 11:22 | PN ---
Progress Note, Physician Chief Complaint: Patient in bed. Comfortable. Maintains excellent urine output. Renal functions slowly improving towards his baseline. No chest pain/ No shortness of breath. Serum electrolytes improving. - Current Medication List Current Medications: Active Medications Acetaminophen (Tylenol -) 650 mg PO Q6H PRN PRN Reason: FEVER OR PAIN Amlodipine Besylate (Norvasc -) 10 mg PO DAILY [facility] Last Admin: 01/02/17 09:57 Dose: 10 mg Chlorhexidine Gluconate (Hibiclens For Decolonization -) 1 applic TP [facility] Last Admin: 01/02/17 01:01 Dose: Not Given Dutasteride (Avodart -) 0.5 mg PO DAILY [facility] Last Admin: 01/02/17 09:57 Dose: 0.5 mg Dextrose/Sodium Chloride (D5-1/2ns -) 1,000 mls @ 100 mls/hr IV ASDIR [facility] Last Admin: 01/02/17 10:00 Dose: 100 mls/hr Magnesium Oxide (Mag-Ox -) 400 mg PO DAILY [facility] Last Admin: 01/02/17 09:57 Dose: 400 mg Metoprolol Tartrate (Lopressor -) 25 mg PO BID [facility] Last Admin: 01/02/17 09:57 Dose: 25 mg Tamsulosin HCl (Flomax -) 0.4 mg PO [facility] Last Admin: 01/01/17 21:33 Dose: 0.4 mg - Objective Vital Signs: Vital Signs Temperature 98.8 F 01/02/17 06:00 Pulse Rate 85 01/02/17 06:00 Respiratory Rate 18 01/02/17 06:00 Blood Pressure 132/56 01/02/17 06:00 O2 Sat by Pulse Oximetry (%) 100 12/30/16 08:17 Constitutional: Yes: Anxious, Pallor Eyes: Yes: Conjunctiva Clear HENT: Yes: Normocephalic Neck: Yes: Trachea Midline Cardiovascular: Yes: S1, S2 Respiratory: Yes: Regular, CTA Bilaterally, SOB Gastrointestinal: Yes: Normal Bowel Sounds, Soft Extremities: Yes: WNL Edema: No Neurological: Yes: Alert, Oriented Psychiatric: Yes: Alert, Oriented Labs: CBC, BMP 01/02/17 06:45 01/02/17 06:45 INR, PTT INR 1.28 (0.82-1.09) H 12/31/16 05:00 Problem List - Problems (1) Acute renal failure Code(s): N17.9 - ACUTE KIDNEY FAILURE, UNSPECIFIED Qualifiers: Acute renal failure type: unspecified Qualified Code(s): N17.9 - Acute kidney failure, unspecified (2) Chronic UTI (urinary tract infection) Code(s): N39.0 - URINARY TRACT INFECTION, SITE NOT SPECIFIED (3) HTN (hypertension) Code(s): I10 - ESSENTIAL (PRIMARY) HYPERTENSION (4) Obstructive uropathy Code(s): N13.9 - OBSTRUCTIVE AND REFLUX UROPATHY, UNSPECIFIED (5) Weakness Code(s): R53.1 - WEAKNESS Assessment/Plan 71 y/o male with: FABIAN . Azotemia improving and almost at his baseline. Hyperkalemia. Has resolved. Right Renal mass. Needs further evaluation. evaluation in progress. Hypercalcemia ( Corrected) persists. w/u in progress. Thanks again. Will follow with you. Libby Whitt MD
--- NOTE | 2017-01-02 11:51 | PN ---
Progress Note (short form) - Note Progress Note: urine clear herrera in place creat 1.9 will need TURP-probably best done as inpt since pt is mostly noncompliant- whenever medically cleared would obtain vascular surgery consult for the renal artery aneursym
--- NOTE | 2017-01-02 14:55 | PN ---
Progress Note, Physician History of Present Illness: patient stable no new issues feeling much better - Current Medication List Current Medications: Active Medications Acetaminophen (Tylenol -) 650 mg PO Q6H PRN PRN Reason: FEVER OR PAIN Amlodipine Besylate (Norvasc -) 10 mg PO DAILY [facility] Last Admin: 01/02/17 09:57 Dose: 10 mg Chlorhexidine Gluconate (Hibiclens For Decolonization -) 1 applic TP HS [facility] Last Admin: 01/02/17 01:01 Dose: Not Given Dutasteride (Avodart -) 0.5 mg PO DAILY [facility] Last Admin: 01/02/17 09:57 Dose: 0.5 mg Magnesium Oxide (Mag-Ox -) 400 mg PO DAILY [facility] Last Admin: 01/02/17 09:57 Dose: 400 mg Metoprolol Tartrate (Lopressor -) 25 mg PO BID [facility] Last Admin: 01/02/17 09:57 Dose: 25 mg Tamsulosin HCl (Flomax -) 0.4 mg PO HS [facility] Last Admin: 01/01/17 21:33 Dose: 0.4 mg - Objective Vital Signs: Vital Signs Temperature 99.4 F 01/02/17 10:00 Pulse Rate 96 H 01/02/17 10:00 Respiratory Rate 20 01/02/17 10:00 Blood Pressure 135/61 01/02/17 10:00 O2 Sat by Pulse Oximetry (%) 100 12/30/16 08:17 Constitutional: Yes: No Distress, Calm Neck: Yes: Supple Cardiovascular: Yes: Regular Rate and Rhythm Respiratory: Yes: Regular, CTA Bilaterally Gastrointestinal: Yes: Normal Bowel Sounds, Soft Genitourinary: Yes: Mccurdy Present, Other Musculoskeletal: Yes: WNL Extremities: Yes: WNL Neurological: Yes: Alert, Oriented Psychiatric: Yes: Alert Labs: CBC, BMP 01/02/17 06:45 01/02/17 06:45 INR, PTT INR 1.28 (0.82-1.09) H 12/31/16 05:00 Assessment/Plan it is rather odd patient has so much weight loss involuntary so soon patient now looking better Problem List - Problem (1) Sepsis Code(s): A41.9 - SEPSIS, UNSPECIFIED ORGANISM (2) Acute renal failure Code(s): N17.9 - ACUTE KIDNEY FAILURE, UNSPECIFIED Qualifiers: Acute renal failure type: unspecified Qualified Code(s): N17.9 - Acute kidney failure, unspecified (3) Obstructive uropathy Code(s): N13.9 - OBSTRUCTIVE AND REFLUX UROPATHY, UNSPECIFIED (4) Hyperkalemia Code(s): E87.5 - HYPERKALEMIA (5) Lactic acidemia Code(s): E87.2 - ACIDOSIS (6) Leukocytosis Code(s): D72.829 - ELEVATED WHITE BLOOD CELL COUNT, UNSPECIFIED (7) Dysuria Code(s): R30.0 - DYSURIA (8) Weakness Code(s): R53.1 - WEAKNESS (9) HTN (hypertension) Code(s): I10 - ESSENTIAL (PRIMARY) HYPERTENSION (10) Chronic UTI (urinary tract infection) Code(s): N39.0 - URINARY TRACT INFECTION, SITE NOT SPECIFIED (11) Poor appetite Assessment/Plan: - RD Consult Bacteremia gram positive patient has gm positive bacteremia plan no abx will monitor rest as per urology and primary
[2017-01-02] MEDS: TAMSULOSIN HCL 0.4 MG CAP.ER.24H (FP) PO SCH (21:17)
[2017-01-03] MEDS: CHLORHEXIDINE GLUCONATE 4% CLEANSER FOR DECOLONIZATION TP SCH (00:30)
[2017-01-03 08:59] LABS: CALCIUM 8.2 mg/dL (8.5-10.1); CREATININE 1.7 mg/dL (0.7-1.3); MAGNESIUM 1.7 mg/dL (1.8-2.4); PHOSPHOROUS 2.4 mg/dL (2.5-4.9)
[2017-01-03 09:01] LABS: BILIRUBIN,TOTAL 0.5 mg/dL (0.2-1.0); TOT PROT 4.7 g/dl (6.4-8.2)
[2017-01-03 09:56] LABS: EOSINOPHIL 3.5 % (0-4.5); MCHC 33.3 g/dl (32.0-35.9); MEAN CELL VOLUME 92.9 fl (80-96); MEAN PLT VOLUME 7.5 fl (7.5-11.1); NEUTROPHILS 79.3 % (42.8-82.8); PLATELET COUNT 205 K/MM3 (134-434); RDW 13.3 % (11.9-15.9)
[2017-01-03] MEDS ORDERED: MAGNESIUM SULF 50% (8.12 MEQ/2 ML-1 GM VIAL) IVPB ONE (10:00)
[2017-01-03] MEDS: MAGNESIUM OXIDE 400 MG TABLET (FP) PO SCH (10:38)
[2017-01-03] MEDS: amLODIPine BESYLATE 10 MG TABLET (FP) PO SCH (10:38)
[2017-01-03] MEDS: METOPROLOL TARTRATE 25 MG TABLET (FP) PO SCH ×2 (10:38→22:10)
[2017-01-03] MEDS ORDERED: PT OWN MED DRAWER 7, Y5N ONE (10:40)
[2017-01-03] MEDS: DUTASTERIDE 0.5 MG CAP (FP) PO SCH (10:41)
[2017-01-03] MEDS ORDERED: MAGNESIUM SULF 50% (8.12 MEQ/2 ML-1 GM VIAL) ONE (10:42)
--- NOTE | 2017-01-03 11:57 | PN ---
Progress Note (short form) - Note Progress Note: Renal Follow up for FABIAN on CKD/Hyperkalemia Pt seen and examined at the bedside no acute complaints no sob of chest pain herrera in place with good urine output Vital Signs Temperature 99.2 F 01/03/17 02:00 Pulse Rate 80 01/02/17 21:15 Respiratory Rate 18 01/02/17 21:15 Blood Pressure 145/58 01/02/17 21:15 O2 Sat by Pulse Oximetry (%) 100 12/30/16 08:17 Intake & Output 12/31/16 01/01/17 01/02/17 01/03/17 22:59 22:59 23:59 23:59 Intake Total 265 Output Total 600 Balance -335 Weight 99 lb 9.6 oz Gen: NAD, awake and alert HEENT: NC/AT, MMM, No JVD, Neck Supple CVS: RRR, No M/R Lungs: CTA Abd: soft NT/ND Ext: No edema Gu: herrera in place with pink urine Neuro: No focal defects CBC, BMP 01/03/17 06:15 Laboratory Tests 01/03/17 06:15 Calcium 8.2 L Phosphorus 2.4 L Magnesium 1.7 L Albumin 2.0 L Current Medications Acetaminophen (Tylenol -) 650 mg PO Q6H PRN PRN Reason: FEVER OR PAIN Amlodipine Besylate (Norvasc -) 10 mg PO DAILY [facility] Last Admin: 01/03/17 10:38 Dose: 10 mg Chlorhexidine Gluconate (Hibiclens For Decolonization -) 1 applic TP [facility] Last Admin: 01/03/17 00:30 Dose: Not Given Dutasteride (Avodart -) 0.5 mg PO DAILY [facility] Last Admin: 01/03/17 10:41 Dose: 0.5 mg Magnesium Oxide (Mag-Ox -) 400 mg PO DAILY [facility] Last Admin: 01/03/17 10:38 Dose: 400 mg Metoprolol Tartrate (Lopressor -) 25 mg PO BID [facility] Last Admin: 01/03/17 10:38 Dose: 25 mg Potassium Phos/Sodium Phos (Phos-Nak Packet -) 1 packet PO TID [facility] Stop: 01/04/17 06:01 Tamsulosin HCl (Flomax -) 0.4 mg PO [facility] Last Admin: 01/02/17 21:17 Dose: 0.4 mg A/P 71 year old Gentleman with PMhx of CKD, Hypertension, BPH with PVR, CHF, Aortic Insufficiency, DVT presented with weakness and dysuria and found to have FABIAN with BUN/Cr of 175/6.4 and K of 8. #Acute Kidney Injury on CKD secondary to obstruction at the level of the prostate Renal function now improved and stable, likely at the baseline for TURP as per urology maintain folry for now #Hypercalcemia initial elevation likely related to volume contraction corrected Ca is 9.16 Vit D levels WNL PTH pending #Mass lesion on the kidney/Renal Artery Aneurysm Urology following recommended Vascular Eval GFR ~ 40 now, can give IV Rj if needed for MRI/MRA Thank you Flex Lo DO
[2017-01-03 12:05] LABS: BASOPHIL 0.8 % (0-2.0); EOSINOPHIL 2.7 % (0-4.5); MCH 31.2 pg (25.7-33.7); MCHC 33.8 g/dl (32.0-35.9); MEAN CELL VOLUME 92.1 fl (80-96); MEAN PLT VOLUME 7.4 fl (7.5-11.1); NEUTROPHILS 82.7 % (42.8-82.8); PLATELET COUNT 215 K/MM3 (134-434); RDW 13.4 % (11.9-15.9)
--- NOTE | 2017-01-03 13:16 | PN ---
Progress Note, Physician History of Present Illness: doing well no complaints urine looking clearer - Current Medication List Current Medications: Active Medications Acetaminophen (Tylenol -) 650 mg PO Q6H PRN PRN Reason: FEVER OR PAIN Amlodipine Besylate (Norvasc -) 10 mg PO DAILY [facility] Last Admin: 01/03/17 10:38 Dose: 10 mg Chlorhexidine Gluconate (Hibiclens For Decolonization -) [address] [facility] Last Admin: 01/03/17 00:30 Dose: Not Given Dutasteride (Avodart -) 0.5 mg PO DAILY [facility] Last Admin: 01/03/17 10:41 Dose: 0.5 mg Magnesium Oxide (Mag-Ox -) 400 mg PO DAILY [facility] Last Admin: 01/03/17 10:38 Dose: 400 mg Metoprolol Tartrate (Lopressor -) 25 mg PO BID [facility] Last Admin: 01/03/17 10:38 Dose: 25 mg Potassium Phos/Sodium Phos (Phos-Nak Packet -) 1 packet PO TID [facility] Stop: 01/04/17 06:01 Tamsulosin HCl (Flomax -) 0.[address] [facility] Last Admin: 01/02/17 21:17 Dose: 0.4 mg - Objective Vital Signs: Vital Signs Temperature 97.7 F 01/03/17 10:00 Pulse Rate 80 01/03/17 10:00 Respiratory Rate 18 01/03/17 10:00 Blood Pressure 144/92 01/03/17 10:00 O2 Sat by Pulse Oximetry (%) 100 12/30/16 08:17 Constitutional: Yes: No Distress, Calm Cardiovascular: Yes: Regular Rate and Rhythm Respiratory: Yes: Regular Gastrointestinal: Yes: Normal Bowel Sounds, Soft Genitourinary: Yes: Mccurdy Present Neurological: Yes: Alert, Oriented Psychiatric: Yes: Alert Labs: CBC, BMP 01/03/17 11:15 01/03/17 06:15 INR, PTT INR 1.28 (0.82-1.09) H 12/31/16 05:00 Assessment/Plan it is rather odd patient has so much weight loss involuntary so soon patient now looking better Problem List - Problem (1) Sepsis Code(s): A41.9 - SEPSIS, UNSPECIFIED ORGANISM (2) Acute renal failure Code(s): N17.9 - ACUTE KIDNEY FAILURE, UNSPECIFIED Qualifiers: Acute renal failure type: unspecified Qualified Code(s): N17.9 - Acute kidney failure, unspecified (3) Obstructive uropathy Code(s): N13.9 - OBSTRUCTIVE AND REFLUX UROPATHY, UNSPECIFIED (4) Hyperkalemia Code(s): E87.5 - HYPERKALEMIA (5) Lactic acidemia Code(s): E87.2 - ACIDOSIS (6) Leukocytosis Code(s): D72.829 - ELEVATED WHITE BLOOD CELL COUNT, UNSPECIFIED (7) Dysuria Code(s): R30.0 - DYSURIA (8) Weakness Code(s): R53.1 - WEAKNESS (9) HTN (hypertension) Code(s): I10 - ESSENTIAL (PRIMARY) HYPERTENSION (10) Chronic UTI (urinary tract infection) Code(s): N39.0 - URINARY TRACT INFECTION, SITE NOT SPECIFIED (11) Poor appetite Assessment/Plan: - RD Consult Bacteremia gram positive patient has gm positive bacteremia plan continue to monitor await for urology to decide
[2017-01-03] MEDS: NAPH,MB-DB/K PH,MBDB POWDER PACKET PO SCH ×2 (14:46→22:10)
--- NOTE | 2017-01-03 17:31 | PN ---
Physical Exam: SUBJECTIVE: Patient seen and examined. He states he feels well, in no acute distress. He denies pain or discomfort. OBJECTIVE: Vital Signs Period Temp Pulse Resp BP Sys/Martinez Pulse Ox Last 24 Hr 97.7 F-99.4 F 77-80 18-20 128-145/57-92 97 GENERAL: The patient is awake, alert, and fully oriented, in no acute distress. HEAD: Normal with no signs of trauma. EYES: PERRL, extraocular movements intact, sclera anicteric, conjunctiva clear. No ptosis. LUNGS: Breath sounds equal, clear to auscultation bilaterally, no wheezes, no crackles, no accessory muscle use. HEART: Regular rate and rhythm, S1, S2 without murmur, rub or gallop. ABDOMEN: Soft, nontender, nondistended, normoactive bowel sounds, no guarding, no rebound, no hepatosplenomegaly, no masses. EXTREMITIES: 2+ pulses, warm, well-perfused, no edema. NEUROLOGICAL: Normal speech PSYCH: Normal mood, normal affect. SKIN: Warm, dry, normal turgor, no rashes or lesions noted. Allevyn sacral dressing in place for protection. Skin below dressing is intact. Laboratory Results - last 24 hr 12/31/16 01/03/17 01/03/17 17:00 06:15 06:15 WBC 9.0 RBC 3.36 L Hgb 10.4 L Hct 31.2 L MCV 92.9 MCHC 33.3 RDW 13.3 Plt Count 205 MPV 7.5 Neutrophils % 79.3 Lymphocytes % 8.2 D Monocytes % 8.0 Eosinophils % 3.5 Basophils % 1.0 Sodium 141 Potassium 4.0 Chloride 107 Carbon Dioxide 26 Anion Gap 8 BUN 29 H Creatinine 1.7 H Creat Clearance w eGFR 40.04 Random Glucose 79 Calcium 8.2 L Phosphorus 2.4 L Magnesium 1.7 L Total Bilirubin 0.5 D AST 19 D ALT 19 D Alkaline Phosphatase 53 Total Protein 4.7 L Albumin 2.0 L Vitamin D 25-Hydroxy 69.5 01/03/17 11:15 WBC 11.0 H RBC 3.44 L Hgb 10.7 L Hct 31.7 L MCV 92.1 MCHC 33.8 RDW 13.4 Plt Count 215 MPV 7.4 L Neutrophils % 82.7 Lymphocytes % 5.2 L D Monocytes % 8.6 Eosinophils % 2.7 Basophils % 0.8 Sodium Potassium Chloride Carbon Dioxide Anion Gap BUN Creatinine Creat Clearance w eGFR Random Glucose Calcium Phosphorus Magnesium Total Bilirubin AST ALT Alkaline Phosphatase Total Protein Albumin Vitamin D 25-Hydroxy Active Medications Generic Name Dose Route Start Last Admin Trade Name Freq PRN Reason Stop Dose Admin Acetaminophen 650 mg 12/31/16 19:26 Tylenol - PO Q6H PRN FEVER OR PAIN Amlodipine Besylate 10 mg 01/01/17 10:00 01/03/17 10:38 Norvasc - PO 10 mg DAILY [facility] Administration Chlorhexidine Gluconate 1 applic 12/31/16 22:00 01/03/17 00:30 Hibiclens For Decolonization - TP Not Given HS [facility] Dutasteride 0.5 mg 01/01/17 10:00 01/03/17 10:41 Avodart - PO 0.5 mg DAILY [facility] Administration Magnesium Oxide 400 mg 01/01/17 10:00 01/03/17 10:38 Mag-Ox - PO 400 mg DAILY [facility] Administration Metoprolol Tartrate 25 mg 12/31/16 22:00 01/03/17 10:38 Lopressor - PO 25 mg BID [facility] Administration Potassium Phos/Sodium Phos 1 packet 01/03/17 14:00 01/03/17 14:46 Phos-Nak Packet - PO 01/04/17 06:01 1 packet TID [facility] Administration Tamsulosin HCl 0.4 mg 12/31/16 22:00 01/02/17 21:17 Flomax - PO 0.4 mg HS [facility] Administration ASSESSMENT/PLAN: Patient is a 71 year old male with a past medical history of hypertension, diastolic heart failure, DVT, CKD, BPH who was admist 71 year-old man with a PMH of HTN, diastolic HF, h/o DVT, CKD, and BPH admitted for FABIAN, UTI, sepsis, urinary retention, bilateral hydronephrosis, and possible renal mass. ID: Sepsis - resolved Assessment/Plan: Lactic acidosis resolved. Pt treated with Zosyn, ceftriaxone and Vanco ID following : FABIAN on CKD secondary to post-renal obstruction BPH Assessment/Plan: Cr 6.4 on admission, now 1.7 Has herrera catheter Needs TURP, spoke urology today, possible TURP on Tuesday Needs cardiology clearance, renal aneurysm evaluation Patient is poor follow up and refusing to leave with sharon Cardiology: Diastolic heart failure CHF On no Diuresis currently Monitor F.E.N. Fluids: adequate PO Electrolytes: BMP in am. Nutrition: low sodium, Ensure Prophylaxis: subq heparin, SCDs, oob, ambulation PT evaluation Dispo: continues to require inpatient care. Full Code. Visit type - Emergency Visit Emergency Visit: Yes ED Registration Date: 12/30/16 Care time: The patient presented to the Emergency Department on the above date and was hospitalized for further evaluation of their emergent condition. - New Patient This patient is new to me today: Yes Date on this admission: 01/03/17 - Critical Care Critical Care patient: No - Discharge Referral Referred to [facility] Med P.C.: No
--- NOTE | 2017-01-03 20:19 | PN ---
Progress Note, Physician History of Present Illness: Denies chest pain or dyspnea. - Current Medication List Current Medications: Active Medications Acetaminophen (Tylenol -) 650 mg PO Q6H PRN PRN Reason: FEVER OR PAIN Amlodipine Besylate (Norvasc -) 10 mg PO DAILY [facility] Last Admin: 01/03/17 10:38 Dose: 10 mg Chlorhexidine Gluconate (Hibiclens For Decolonization -) 1 applic TP HS [facility] Last Admin: 01/03/17 00:30 Dose: Not Given Dutasteride (Avodart -) 0.5 mg PO DAILY [facility] Last Admin: 01/03/17 10:41 Dose: 0.5 mg Magnesium Oxide (Mag-Ox -) 400 mg PO DAILY [facility] Last Admin: 01/03/17 10:38 Dose: 400 mg Metoprolol Tartrate (Lopressor -) 25 mg PO BID [facility] Last Admin: 01/03/17 10:38 Dose: 25 mg Potassium Phos/Sodium Phos (Phos-Nak Packet -) 1 packet PO TID [facility] Stop: 01/04/17 06:01 Last Admin: 01/03/17 14:46 Dose: 1 packet Tamsulosin HCl (Flomax -) 0.4 mg PO HS [facility] Last Admin: 01/02/17 21:17 Dose: 0.4 mg - Objective Vital Signs: Vital Signs Temperature 99.0 F 01/03/17 18:00 Pulse Rate 78 01/03/17 18:00 Respiratory Rate 20 01/03/17 18:00 Blood Pressure 139/53 01/03/17 18:00 O2 Sat by Pulse Oximetry (%) 97 01/03/17 09:00 Constitutional: Yes: No Distress Eyes: Yes: Conjunctiva Clear, EOM Intact HENT: Yes: Atraumatic, Normocephalic Cardiovascular: Yes: Regular Rate and Rhythm, Murmur. No: JVD Respiratory: Yes: CTA Bilaterally Gastrointestinal: Yes: Normal Bowel Sounds, Soft. No: Tenderness Edema: No Neurological: Yes: Alert, Oriented, Cran Nerves II-XII Intact Psychiatric: Yes: WNL Labs: CBC, BMP 01/03/17 11:15 01/03/17 06:15 INR, PTT INR 1.28 (0.82-1.09) H 12/31/16 05:00 Assessment/Plan 71 yo male with HTN, aortic regurgitation, ? remote hx of CVA/TIA, RLE DVT in 2008, CKD, bilateral hydronephrosis in 2013. Currently pending TURP on Tuesday (01/05). Asked to see patient again for pre-operative cardiac assessment. Patient is clinically stable from cardiac standpoint. No evidence of ACS or CHF. Echocardiogram on 12/30/16 demonstrated normal LV size and systolic function, moderate to severe AR, and mild pulmonary hypertension. RECS: Patient may proceed with his TURP on Tuesday with acceptable cardiac risk and without further cardiac work-up or intervention. Will follow-up post-operatively. Please call with questions.
--- NOTE | 2017-01-03 20:33 | PN ---
Progress Note (short form) - Note Progress Note: Vascular Surgery CT scan reviewed. Radiology unsure whether the small call calcified lesion in right kidney is a aneurysm vs mass. The lesion measures 2.9cm. No need for any intervention if it is a aneurysm. The lesion is well calcified. Can follow with renal ultrasound in 6 months. If lesion starts to grow greater than 3cm, then intervention might be needed. Reinier Parker DO
[2017-01-03] MEDS: TAMSULOSIN HCL 0.4 MG CAP.ER.24H (FP) PO SCH (22:10)
[2017-01-04] MEDS: CHLORHEXIDINE GLUCONATE 4% CLEANSER FOR DECOLONIZATION TP SCH (00:41)
[2017-01-04] MEDS: NAPH,MB-DB/K PH,MBDB POWDER PACKET PO SCH (06:08)
[2017-01-04 08:07] LABS: EOSINOPHIL 3.6 % (0-4.5); MCH 30.9 pg (25.7-33.7); MCHC 33.9 g/dl (32.0-35.9); MEAN CELL VOLUME 91.1 fl (80-96); MEAN PLT VOLUME 7.3 fl (7.5-11.1); NEUTROPHILS 82.1 % (42.8-82.8); PLATELET COUNT 203 K/MM3 (134-434); RDW 13.3 % (11.9-15.9); WHITE BLOOD COUNT 11.6 K/mm3 (4.0-10.0)
[2017-01-04 08:31] LABS: CALCIUM 8.3 mg/dL (8.5-10.1); MAGNESIUM 2.1 mg/dL (1.8-2.4)
[2017-01-04 08:36] LABS: BILIRUBIN,TOTAL 0.4 mg/dL (0.2-1.0); CREATININE 1.5 mg/dL (0.7-1.3); TOT PROT 4.8 g/dl (6.4-8.2)
[2017-01-04] MEDS: MAGNESIUM OXIDE 400 MG TABLET (FP) PO SCH (09:32)
[2017-01-04] MEDS: DUTASTERIDE 0.5 MG CAP (FP) PO SCH (09:32)
[2017-01-04] MEDS: amLODIPine BESYLATE 10 MG TABLET (FP) PO SCH (09:32)
[2017-01-04] MEDS: METOPROLOL TARTRATE 25 MG TABLET (FP) PO SCH ×2 (09:32→21:42)
--- NOTE | 2017-01-04 10:13 | PN ---
Progress Note (short form) - Note Progress Note: Renal Follow up for FABIAN on CKD/Hyperkalemia Pt seen and examined at the bedside no acute complaints herrera in place Vital Signs Temperature 98.4 F 01/04/17 06:00 Pulse Rate 72 01/04/17 06:00 Respiratory Rate 18 01/04/17 06:00 Blood Pressure 128/56 01/04/17 06:00 O2 Sat by Pulse Oximetry (%) 96 01/03/17 22:00 Intake & Output 01/01/17 01/02/17 01/03/17 01/04/17 22:59 23:59 23:59 23:59 Intake Total 1170 180 Output Total 1500 Balance -330 180 Weight 99 lb 9.6 oz Gen: NAD, awake and alert HEENT: NC/AT, MMM, No JVD, Neck Supple CVS: RRR, No M/R Lungs: CTA Abd: soft NT/ND Ext: No edema Gu: herrera in place with pink urine Neuro: No focal defects CBC, BMP 01/04/17 07:40 01/04/17 07:40 Laboratory Tests 01/04/17 07:40 Calcium 8.3 L Magnesium 2.1 D Albumin 2.0 L Current Medications Acetaminophen (Tylenol -) 650 mg PO Q6H PRN PRN Reason: FEVER OR PAIN Amlodipine Besylate (Norvasc -) 10 mg PO DAILY [facility] Last Admin: 01/04/17 09:32 Dose: 10 mg Chlorhexidine Gluconate (Hibiclens For Decolonization -) 1 applic TP [facility] Last Admin: 01/04/17 00:41 Dose: Not Given Dutasteride (Avodart -) 0.5 mg PO DAILY [facility] Last Admin: 01/04/17 09:32 Dose: 0.5 mg Magnesium Oxide (Mag-Ox -) 400 mg PO DAILY [facility] Last Admin: 01/04/17 09:32 Dose: 400 mg Metoprolol Tartrate (Lopressor -) 25 mg PO BID [facility] Last Admin: 01/04/17 09:32 Dose: 25 mg Tamsulosin HCl (Flomax -) 0.4 mg PO HS [facility] Last Admin: 01/03/17 22:10 Dose: 0.4 mg A/P 71 year old Gentleman with PMhx of CKD, Hypertension, BPH with PVR, CHF, Aortic Insufficiency, DVT presented with weakness and dysuria and found to have FABIAN with BUN/Cr of 175/6.4 and K of 8. #Acute Kidney Injury on CKD secondary to obstruction at the level of the prostate Renal function improved and stable continue herrera TURP as per Urology #Hypercalcemia initial elevation likely related to volume contraction corrected CA is WNL #Mass lesion on the kidney/Renal Artery Aneurysm Urology following recommended Vascular Eval GFR ~ 40 now, can give IV Rj if needed for MRI/MRA Thank you Flex Lo DO
--- NOTE | 2017-01-04 11:27 | PN ---
Physical Exam: SUBJECTIVE: Patient seen and examined. States he feels well, complaining of having soft stools but otherwise comfortable. OBJECTIVE: Vital Signs Period Temp Pulse Resp BP Sys/Martinez Pulse Ox Last 24 Hr 98.4 F-99.0 F 72-81 18-20 128-139/53-67 96 GENERAL: The patient is awake, alert, and fully oriented, in no acute distress. HEAD: Normal with no signs of trauma. EYES: PERRL, extraocular movements intact, sclera anicteric, conjunctiva clear. No ptosis. LUNGS: Breath sounds equal, clear to auscultation bilaterally, no wheezes, no crackles, no accessory muscle use. HEART: Regular rate and rhythm, S1, S2 without murmur, rub or gallop. ABDOMEN: Soft, nontender, nondistended, normoactive bowel sounds, no guarding, no rebound, no hepatosplenomegaly, no masses. EXTREMITIES: 2+ pulses, warm, well-perfused, no edema. NEUROLOGICAL: Normal speech PSYCH: Normal mood, normal affect. SKIN: Warm, dry, normal turgor, no rashes or lesions noted. Allevyn sacral dressing in place for protection. Skin is intact. Laboratory Results - last 24 hr 01/03/17 01/04/17 01/04/17 11:15 07:40 07:40 WBC 11.0 H 11.6 H RBC 3.44 L 3.29 L Hgb 10.7 L 10.2 L Hct 31.7 L 30.0 L MCV 92.1 91.1 MCHC 33.8 33.9 RDW 13.4 13.3 Plt Count 215 203 MPV 7.4 L 7.3 L Neutrophils % 82.7 82.1 Lymphocytes % 5.2 L D 5.9 L Monocytes % 8.6 7.4 Eosinophils % 2.7 3.6 Basophils % 0.8 1.0 Sodium 140 Potassium 4.3 Chloride 107 Carbon Dioxide 25 Anion Gap 8 BUN 26 H Creatinine 1.5 H Creat Clearance w eGFR 46.27 Random Glucose 78 Calcium 8.3 L Magnesium 2.1 D Total Bilirubin 0.4 AST 20 ALT 24 D Alkaline Phosphatase 51 Total Protein 4.8 L Albumin 2.0 L Active Medications Generic Name Dose Route Start Last Admin Trade Name Freq PRN Reason Stop Dose Admin Acetaminophen 650 mg 12/31/16 19:26 Tylenol - PO Q6H PRN FEVER OR PAIN Amlodipine Besylate 10 mg 01/01/17 10:00 01/04/17 09:32 Norvasc - PO 10 mg DAILY ELIO Administration Dutasteride 0.5 mg 01/01/17 10:00 01/04/17 09:32 Avodart - PO 0.5 mg DAILY ELIO Administration Lactobacillus Acidophilus 1 tab 01/04/17 11:30 Bacid - PO 01/04/17 11:31 ONCE ONE Magnesium Oxide 400 mg 01/01/17 10:00 01/04/17 09:32 Mag-Ox - PO 400 mg DAILY ELIO Administration Metoprolol Tartrate 25 mg 12/31/16 22:00 01/04/17 09:32 Lopressor - PO 25 mg BID ELIO Administration Tamsulosin HCl 0.4 mg 12/31/16 22:00 01/03/17 22:10 Flomax - PO 0.4 mg HS ELIO Administration ASSESSMENT/PLAN: Patient is a 71 year old male with a past medical history of hypertension, diastolic heart failure, DVT, CKD, BPH who was admist 71 year-old man with a PMH of HTN, diastolic HF, h/o DVT, CKD, and BPH admitted for FABIAN, UTI, sepsis, urinary retention, bilateral hydronephrosis, and possible renal mass. ID: Sepsis - secondary to UTI, now resolved Assessment/Plan: Lactic acidosis resolved. 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/BPH Assessment/Plan: Cr 6.4 on admission, now 1.5 Has herrera catheter Needs TURP, spoke urology today, possible TURP on Tuesday Cardiology cleared pt for procedure Patient is poor follow up and refusing to leave with herrera : Renal aneurysm Assessment/Plan: Evaluated by vascular concerning renal lesion As per vascular, no need for further intervention if it is an aneurysm Will need repeat renal ultrasound in 6 months, intervention needed if lesion increases in size Cardiology: Diastolic heart failure CHF On no Diuresis currently Monitor for volume overload Hypertension - chronic Assessment/Plan: Controlled on Amlodopine 10mg daily and Metoprolol 25mg BID F.E.N. Fluids: adequate PO Electrolytes: NPO for possible TURP in a.m. Nutrition: low sodium, Ensure Prophylaxis: subq heparin, SCDs, oob, ambulation PT evaluation Dispo: continues to require inpatient care. Will need post op follow up with cardiology and will need a 6 month recheck of possible renal aneurysm. Full Code. Visit type - Emergency Visit Emergency Visit: Yes ED Registration Date: 12/30/16 Care time: The patient presented to the Emergency Department on the above date and was hospitalized for further evaluation of their emergent condition. - New Patient This patient is new to me today: No - Critical Care Critical Care patient: No - Discharge Referral Referred to [facility] No
[2017-01-04] MEDS ORDERED: LACTOBACILLUS ACIDOPHILUS 1 EACH TAB (FP) PO ONE ×2 (11:30→16:00)
--- NOTE | 2017-01-04 15:06 | PN ---
Progress Note, Physician History of Present Illness: Denies chest pain or dyspnea. - Current Medication List Current Medications: Active Medications Acetaminophen (Tylenol -) 650 mg PO Q6H PRN PRN Reason: FEVER OR PAIN Amlodipine Besylate (Norvasc -) 10 mg PO DAILY [facility] Last Admin: 01/04/17 09:32 Dose: 10 mg Dutasteride (Avodart -) 0.5 mg PO DAILY [facility] Last Admin: 01/04/17 09:32 Dose: 0.5 mg Magnesium Oxide (Mag-Ox -) 400 mg PO DAILY [facility] Last Admin: 01/04/17 09:32 Dose: 400 mg Metoprolol Tartrate (Lopressor -) 25 mg PO BID [facility] Last Admin: 01/04/17 09:32 Dose: 25 mg Tamsulosin HCl (Flomax -) 0.4 mg PO HS [facility] Last Admin: 01/03/17 22:10 Dose: 0.4 mg - Objective Vital Signs: Vital Signs Temperature 98.5 F 01/04/17 14:56 Pulse Rate 89 01/04/17 14:56 Respiratory Rate 18 01/04/17 14:56 Blood Pressure 135/52 01/04/17 14:56 O2 Sat by Pulse Oximetry (%) 96 01/03/17 22:00 Constitutional: Yes: No Distress Eyes: Yes: Conjunctiva Clear, EOM Intact HENT: Yes: Atraumatic, Normocephalic Cardiovascular: Yes: Regular Rate and Rhythm. No: JVD, Murmur Respiratory: Yes: CTA Bilaterally Neurological: Yes: Alert, Oriented Labs: CBC, BMP 01/04/17 07:40 01/04/17 07:40 INR, PTT INR 1.28 (0.82-1.09) H 12/31/16 05:00 Assessment/Plan 71 yo male with HTN, aortic regurgitation, ? remote hx of CVA/TIA, RLE DVT in 2008, CKD, bilateral hydronephrosis in 2013. Currently pending TURP on Tuesday (01/05). Asked to see patient again for pre-operative cardiac assessment. Patient is clinically stable from cardiac standpoint. No evidence of ACS or CHF. Echocardiogram on 12/30/16 demonstrated normal LV size and systolic function, moderate to severe AR, and mild pulmonary hypertension. RECS: Patient may proceed with his TURP on Tuesday with acceptable cardiac risk and without further cardiac work-up or intervention. Will follow-up post-operatively. Please call with questions.
--- NOTE | 2017-01-04 15:25 | PN ---
Physical Exam: SUBJECTIVE: Patient seen and examined OBJECTIVE: Vital Signs Period Temp Pulse Resp BP Sys/Martinez Pulse Ox Last 24 Hr 98.4 F-99.0 F 72-89 18-20 128-139/52-67 96 GENERAL: The patient is awake, alert, and fully oriented, in no acute distress. HEAD: Normal with no signs of trauma. EYES: PERRL, extraocular movements intact, sclera anicteric, conjunctiva clear. No ptosis. ENT: Ears normal, nares patent, oropharynx clear without exudates, moist mucous membranes. NECK: Trachea midline, full range of motion, supple. LUNGS: Breath sounds equal, clear to auscultation bilaterally, no wheezes, no crackles, no accessory muscle use. HEART: Regular rate and rhythm, S1, S2 without murmur, rub or gallop. ABDOMEN: Soft, nontender, nondistended, normoactive bowel sounds, no guarding, no rebound, no hepatosplenomegaly, no masses. EXTREMITIES: 2+ pulses, warm, well-perfused, no edema. NEUROLOGICAL: Cranial nerves II through XII grossly intact. Normal speech, gait not observed. PSYCH: Normal mood, normal affect. SKIN: Warm, dry, normal turgor, no rashes or lesions noted Laboratory Results - last 24 hr 01/04/17 01/04/17 07:40 07:40 WBC 11.6 H RBC 3.29 L Hgb 10.2 L Hct 30.0 L MCV 91.1 MCHC 33.9 RDW 13.3 Plt Count 203 MPV 7.3 L Neutrophils % 82.1 Lymphocytes % 5.9 L Monocytes % 7.4 Eosinophils % 3.6 Basophils % 1.0 Sodium 140 Potassium 4.3 Chloride 107 Carbon Dioxide 25 Anion Gap 8 BUN 26 H Creatinine 1.5 H Creat Clearance w eGFR 46.27 Random Glucose 78 Calcium 8.3 L Magnesium 2.1 D Total Bilirubin 0.4 AST 20 ALT 24 D Alkaline Phosphatase 51 Total Protein 4.8 L Albumin 2.0 L Active Medications Generic Name Dose Route Start Last Admin Trade Name Freq PRN Reason Stop Dose Admin Acetaminophen 650 mg 12/31/16 19:26 Tylenol - PO Q6H PRN FEVER OR PAIN Amlodipine Besylate 10 mg 01/01/17 10:00 01/04/17 09:32 Norvasc - PO 10 mg DAILY ELIO Administration Dutasteride 0.5 mg 01/01/17 10:00 01/04/17 09:32 Avodart - PO 0.5 mg DAILY ELIO Administration Magnesium Oxide 400 mg 01/01/17 10:00 01/04/17 09:32 Mag-Ox - PO 400 mg DAILY ELIO Administration Metoprolol Tartrate 25 mg 12/31/16 22:00 01/04/17 09:32 Lopressor - PO 25 mg BID ELIO Administration Tamsulosin HCl 0.4 mg 12/31/16 22:00 01/03/17 22:10 Flomax - PO 0.4 mg HS ELIO Administration ASSESSMENT/PLAN:
[2017-01-04] MEDS: TAMSULOSIN HCL 0.4 MG CAP.ER.24H (FP) PO SCH (21:42)
[2017-01-05 08:30] LABS: BASOPHIL 1.2 % (0-2.0); EOSINOPHIL 3.8 % (0-4.5); MCHC 34.1 g/dl (32.0-35.9); MEAN CELL VOLUME 91.1 fl (80-96); MEAN PLT VOLUME 7.6 fl (7.5-11.1); PLATELET COUNT 202 K/MM3 (134-434); RDW 13.4 % (11.9-15.9); WHITE BLOOD COUNT 10.1 K/mm3 (4.0-10.0)
[2017-01-05 09:01] LABS: CALCIUM 8.3 mg/dL (8.5-10.1); CREATININE 1.6 mg/dL (0.7-1.3)
[2017-01-05 09:02] LABS: BILIRUBIN,TOTAL 0.4 mg/dL (0.2-1.0); TOT PROT 4.7 g/dl (6.4-8.2)
[2017-01-05] MEDS: MAGNESIUM OXIDE 400 MG TABLET (FP) PO SCH (11:27)
[2017-01-05] MEDS: METOPROLOL TARTRATE 25 MG TABLET (FP) PO SCH ×2 (11:28→21:26)
[2017-01-05] MEDS: amLODIPine BESYLATE 10 MG TABLET (FP) PO SCH (11:28)
[2017-01-05] MEDS: DUTASTERIDE 0.5 MG CAP (FP) PO SCH (11:28)
--- NOTE | 2017-01-05 12:13 | PN ---
Progress Note, Physician History of Present Illness: stable no new issues awaiting for urology to do final procedure/plan - Current Medication List Current Medications: Active Medications Acetaminophen (Tylenol -) 650 mg PO Q6H PRN PRN Reason: FEVER OR PAIN Amlodipine Besylate (Norvasc -) 10 mg PO DAILY [facility] Last Admin: 01/05/17 11:28 Dose: 10 mg Dutasteride (Avodart -) 0.5 mg PO DAILY [facility] Last Admin: 01/05/17 11:28 Dose: 0.5 mg Magnesium Oxide (Mag-Ox -) 400 mg PO DAILY [facility] Last Admin: 01/05/17 11:27 Dose: 400 mg Metoprolol Tartrate (Lopressor -) 25 mg PO BID [facility] Last Admin: 01/05/17 11:28 Dose: 25 mg Tamsulosin HCl (Flomax -) 0.4 mg PO HS [facility] Last Admin: 01/04/17 21:42 Dose: 0.4 mg - Objective Vital Signs: Vital Signs Temperature 98.4 F 01/05/17 10:00 Pulse Rate 84 01/05/17 10:00 Respiratory Rate 20 01/05/17 10:00 Blood Pressure 126/60 01/05/17 10:00 O2 Sat by Pulse Oximetry (%) 95 01/04/17 22:00 Constitutional: Yes: No Distress, Calm Cardiovascular: Yes: Regular Rate and Rhythm Respiratory: Yes: Regular Gastrointestinal: Yes: Normal Bowel Sounds, Soft Genitourinary: Yes: Mccurdy Present Musculoskeletal: Yes: WNL Extremities: Yes: WNL Neurological: Yes: Alert, Oriented Psychiatric: Yes: Alert Labs: CBC, BMP 01/05/17 06:50 01/05/17 06:50 INR, PTT INR 1.28 (0.82-1.09) H 12/31/16 05:00 Assessment/Plan it is rather odd patient has so much weight loss involuntary so soon patient now looking better Problem List - Problem (1) Sepsis Code(s): A41.9 - SEPSIS, UNSPECIFIED ORGANISM (2) Acute renal failure Code(s): N17.9 - ACUTE KIDNEY FAILURE, UNSPECIFIED Qualifiers: Acute renal failure type: unspecified Qualified Code(s): N17.9 - Acute kidney failure, unspecified (3) Obstructive uropathy Code(s): N13.9 - OBSTRUCTIVE AND REFLUX UROPATHY, UNSPECIFIED (4) Hyperkalemia Code(s): E87.5 - HYPERKALEMIA (5) Lactic acidemia Code(s): E87.2 - ACIDOSIS (6) Leukocytosis Code(s): D72.829 - ELEVATED WHITE BLOOD CELL COUNT, UNSPECIFIED (7) Dysuria Code(s): R30.0 - DYSURIA (8) Weakness Code(s): R53.1 - WEAKNESS (9) HTN (hypertension) Code(s): I10 - ESSENTIAL (PRIMARY) HYPERTENSION (10) Chronic UTI (urinary tract infection) Code(s): N39.0 - URINARY TRACT INFECTION, SITE NOT SPECIFIED (11) Poor appetite Assessment/Plan: - RD Consult Bacteremia gram positive plan continue to monitor await for urology to decide
--- NOTE | 2017-01-05 12:27 | PN ---
Progress Note (short form) - Note Progress Note: Renal Follow up for FABIAN on CKD/Hyperkalemia Pt seen and examined at the bedside no acute complaints TURP be done tomorrow herrera in place Vital Signs Temperature 98.4 F 01/05/17 10:00 Pulse Rate 84 01/05/17 10:00 Respiratory Rate 20 01/05/17 10:00 Blood Pressure 126/60 01/05/17 10:00 O2 Sat by Pulse Oximetry (%) 95 01/04/17 22:00 Gen: NAD, awake and alert CVS: RRR, No M/R Lungs: CTA Abd: soft NT/ND Ext: No edema CBC, BMP 01/05/17 06:50 01/05/17 06:50 Current Medications Acetaminophen (Tylenol -) 650 mg PO Q6H PRN PRN Reason: FEVER OR PAIN Amlodipine Besylate (Norvasc -) 10 mg PO DAILY [facility] Last Admin: 01/05/17 11:28 Dose: 10 mg Dutasteride (Avodart -) 0.5 mg PO DAILY [facility] Last Admin: 01/05/17 11:28 Dose: 0.5 mg Magnesium Oxide (Mag-Ox -) 400 mg PO DAILY [facility] Last Admin: 01/05/17 11:27 Dose: 400 mg Metoprolol Tartrate (Lopressor -) 25 mg PO BID [facility] Last Admin: 01/05/17 11:28 Dose: 25 mg Tamsulosin HCl (Flomax -) 0.4 mg PO HS [facility] Last Admin: 01/04/17 21:42 Dose: 0.4 mg A/P 71 year old Gentleman with PMhx of CKD, Hypertension, BPH with PVR, CHF, Aortic Insufficiency, DVT presented with weakness and dysuria and found to have FABIAN with BUN/Cr of 175/6.4 and K of 8. #Acute Kidney Injury on CKD secondary to obstruction at the level of the prostate renal function stable herrera in place TURP as per urology trend BUN/Cr Continue Avodart and Fomax #Hypercalcemia initial elevation likely related to volume contraction corrected CA is WNL #Mass lesion on the kidney/Renal Artery Aneurysm Urology following no acute indication as per vascular GFR ~ 40 now, can give IV Rj if needed for MRI/MRA Thank you Flex Lo DO
--- NOTE | 2017-01-05 15:08 | PN ---
Physical Exam: SUBJECTIVE: Patient seen and examined. States he feels well, offers no complaints. Eager to have TURP and then go home. Seen by urology, TURP procedure tomorrow. OBJECTIVE: GENERAL: The patient is awake, alert, and fully oriented, in no acute distress. HEAD: Normal with no signs of trauma. EYES: PERRL, extraocular movements intact, sclera anicteric, conjunctiva clear. No ptosis. LUNGS: Breath sounds equal, clear to auscultation bilaterally, no wheezes, no crackles, no accessory muscle use. HEART: Regular rate and rhythm, S1, S2 without murmur, rub or gallop. ABDOMEN: Soft, nontender, nondistended, normoactive bowel sounds, no guarding, no rebound, no hepatosplenomegaly, no masses. EXTREMITIES: 2+ pulses, warm, well-perfused, no edema. NEUROLOGICAL: Normal speech PSYCH: Normal mood, normal affect. SKIN: Warm, dry, normal turgor, no rashes or lesions noted. Allevyn sacral dressing in place for protection. Skin is intact. Vital Signs Period Temp Pulse Resp BP Sys/Martinez Pulse Ox Last 24 Hr 98.1 F-98.7 F 72-96 20-20 126-139/47-68 95 Laboratory Results - last 24 hr 12/31/16 01/05/17 01/05/17 17:00 06:50 06:50 WBC 10.1 H RBC 3.18 L Hgb 9.9 L Hct 29.0 L MCV 91.1 MCHC 34.1 RDW 13.4 Plt Count 202 MPV 7.6 Neutrophils % 80.0 Lymphocytes % 7.1 L D Monocytes % 7.9 Eosinophils % 3.8 Basophils % 1.2 Sodium 141 Potassium 4.2 Chloride 107 Carbon Dioxide 24 Anion Gap 10 BUN 28 H Creatinine 1.6 H Creat Clearance w eGFR 42.95 Random Glucose 78 Calcium 8.3 L Magnesium 2.0 Total Bilirubin 0.4 AST 19 ALT 28 Alkaline Phosphatase 52 Total Protein 4.7 L Albumin 2.0 L 25-OH Vitamin D Total 50 Vit D 1,25-Dihydroxy 31.0 25-Hydroxy Vitamin D2 <1.0 25-Hydroxy Vitamin D3 49 Active Medications Generic Name Dose Route Start Last Admin Trade Name Freq PRN Reason Stop Dose Admin Acetaminophen 650 mg 03/10/17 19:26 Tylenol - PO Q6H PRN FEVER OR PAIN Amlodipine Besylate 10 mg 01/01/17 10:00 01/05/17 11:28 Norvasc - PO 10 mg DAILY ELIO Administration Dutasteride 0.5 mg 01/01/17 10:00 01/05/17 11:28 Avodart - PO 0.5 mg DAILY ELIO Administration Magnesium Oxide 400 mg 01/01/17 10:00 01/05/17 11:27 Mag-Ox - PO 400 mg DAILY ELIO Administration Metoprolol Tartrate 25 mg 12/31/16 22:00 01/05/17 11:28 Lopressor - PO 25 mg BID ELIO Administration Tamsulosin HCl 0.4 mg 12/31/16 22:00 01/04/17 21:42 Flomax - PO 0.4 mg HS ELIO Administration ASSESSMENT/PLAN: Patient is a 71 year old male with a past medical history of hypertension, diastolic heart failure, DVT, CKD, BPH who was admist 71 year-old man with a PMH of HTN, diastolic HF, h/o DVT, CKD, and BPH admitted for FABIAN, UTI, sepsis, urinary retention, bilateral hydronephrosis, and possible renal mass. ID: Sepsis - secondary to UTI, now resolved Assessment/Plan: Lactic acidosis resolved. 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/BPH Assessment/Plan: Cr 6.4 on admission, now 1.6 Has herrera catheter Needs TURP, likely will be done tomorrow Cardiology cleared pt for procedure Patient is poor follow up and refusing to leave hospital with herrera : Renal aneurysm Assessment/Plan: Evaluated by vascular concerning renal lesion As per vascular, no need for further intervention if it is an aneurysm Will need repeat renal ultrasound in 6 months, intervention needed if lesion increases in size Cardiology: Diastolic heart failure CHF On no Diuresis currently Monitor for volume overload Hypertension - chronic Assessment/Plan: Controlled on Amlodopine 10mg daily and Metoprolol 25mg BID F.E.N. Fluids: adequate PO Electrolytes: within normal limits Nutrition: low sodium, Ensure Prophylaxis: subq heparin, SCDs, oob, ambulation PT evaluation Disposition: Continues to require inpatient hospitalization. Full Code. Visit type - Emergency Visit Emergency Visit: Yes ED Registration Date: 12/30/16 Care time: The patient presented to the Emergency Department on the above date and was hospitalized for further evaluation of their emergent condition. - New Patient This patient is new to me today: No - Critical Care Critical Care patient: No - Discharge Referral Referred to [facility] No
[2017-01-05] MEDS: TAMSULOSIN HCL 0.4 MG CAP.ER.24H (FP) PO SCH (21:26)
[2017-01-06] MEDS ORDERED: LIDOCAINE HCL 2% JELLY 10 ML CARTRIDGE TP ONE
[2017-01-06 07:31] LABS: BASOPHIL 1.3 % (0-2.0); EOSINOPHIL 3.3 % (0-4.5); MCHC 33.7 g/dl (32.0-35.9); MEAN CELL VOLUME 91.8 fl (80-96); MEAN PLT VOLUME 7.4 fl (7.5-11.1); NEUTROPHILS 81.7 % (42.8-82.8); PLATELET COUNT 199 K/MM3 (134-434); RDW 13.2 % (11.9-15.9); WHITE BLOOD COUNT 9.4 K/mm3 (4.0-10.0)
[2017-01-06 07:46] LABS: INR 1.13 (0.82-1.09); PROTHROMBIN TIME (PATIENT) 12.5 SEC (9.98-11.88)
[2017-01-06 07:51] LABS: CALCIUM 8.6 mg/dL (8.5-10.1); CREATININE 1.6 mg/dL (0.7-1.3); MAGNESIUM 1.9 mg/dL (1.8-2.4); PHOSPHOROUS 3.5 mg/dL (2.5-4.9)
--- NOTE | 2017-01-06 11:46 | PN ---
Progress Note (short form) - Note Progress Note: Renal Follow up for FABIAN on CKD/Hyperkalemia Pt seen and examined at the bedside no complaints awaiting TURP today no sob or chest pain pt is NPO herrera in place Vital Signs Temperature 98.7 F 01/06/17 06:00 Pulse Rate 67 01/06/17 06:00 Respiratory Rate 18 01/06/17 06:00 Blood Pressure 123/41 01/06/17 06:00 O2 Sat by Pulse Oximetry (%) 95 01/05/17 09:00 Intake & Output 01/03/17 01/04/17 01/05/17 01/06/17 23:59 23:59 23:59 23:59 Intake Total 1170 1000 975 Output Total 1500 450 900 900 Balance -330 550 75 -900 Weight 99 lb 9.6 oz 100 lb 6.4 oz Gen: NAD CVS: RRR, No M/R Lungs: CTA Abd: soft NT/ND Ext: No edema : Herrera in place CBC, BMP 01/06/17 06:00 01/06/17 06:00 Current Medications Acetaminophen (Tylenol -) 650 mg PO Q6H PRN PRN Reason: FEVER OR PAIN Amlodipine Besylate (Norvasc -) 10 mg PO DAILY [facility] Last Admin: 01/05/17 11:28 Dose: 10 mg Dutasteride (Avodart -) 0.5 mg PO DAILY [facility] Last Admin: 01/05/17 11:28 Dose: 0.5 mg Magnesium Oxide (Mag-Ox -) 400 mg PO DAILY [facility] Last Admin: 01/05/17 11:27 Dose: 400 mg Metoprolol Tartrate (Lopressor -) 25 mg PO BID [facility] Last Admin: 01/05/17 21:26 Dose: 25 mg Tamsulosin HCl (Flomax -) 0.4 mg PO HS [facility] Last Admin: 01/05/17 21:26 Dose: 0.4 mg A/P 71 year old Gentleman with PMhx of CKD, Hypertension, BPH with PVR, CHF, Aortic Insufficiency, DVT presented with weakness and dysuria and found to have FABIAN with BUN/Cr of 175/6.4 and K of 8. #Acute Kidney Injury on CKD secondary to obstruction at the level of the prostate Renal function now stable at suspected baseline Continue Herrera as per urology for TURP Today Continue Flomax and Avodart will need outpatient monitoring of renal function #Hypercalcemia initial elevation likely related to volume contraction corrected CA is WNL #Mass lesion on the kidney/Renal Artery Aneurysm Urology and vascular recommendations noted no acute indication as per vascular Thank you Flex Lo DO
[2017-01-06] MEDS: METOPROLOL TARTRATE 25 MG TABLET (FP) PO SCH ×2 (12:41→21:43)
[2017-01-06] MEDS: MAGNESIUM OXIDE 400 MG TABLET (FP) PO SCH (12:41)
[2017-01-06] MEDS: amLODIPine BESYLATE 10 MG TABLET (FP) PO SCH (12:41)
[2017-01-06] MEDS: DUTASTERIDE 0.5 MG CAP (FP) PO SCH (12:41)
[2017-01-06] MEDS ORDERED: ONDANSETRON 4 MG/2 ML VIAL IVPUSH PRN ×2 (15:31→17:21)
--- NOTE | 2017-01-06 15:31 | PN ---
Progress Note, Physician History of Present Illness: stable no new issues patient going for turp - Current Medication List Current Medications: Active Medications Acetaminophen (Tylenol -) 650 mg PO Q6H PRN PRN Reason: FEVER OR PAIN Amlodipine Besylate (Norvasc -) 10 mg PO DAILY [facility] Last Admin: 01/06/17 12:41 Dose: Not Given Dutasteride (Avodart -) 0.5 mg PO DAILY [facility] Last Admin: 01/06/17 12:41 Dose: Not Given Magnesium Oxide (Mag-Ox -) 400 mg PO DAILY [facility] Last Admin: 01/06/17 12:41 Dose: Not Given Metoprolol Tartrate (Lopressor -) 25 mg PO BID [facility] Last Admin: 01/06/17 12:41 Dose: Not Given Tamsulosin HCl (Flomax -) 0.4 mg PO HS [facility] Last Admin: 01/05/17 21:26 Dose: 0.4 mg - Objective Vital Signs: Vital Signs Temperature 98.5 F 01/06/17 15:20 Pulse Rate 72 01/06/17 15:20 Respiratory Rate 20 01/06/17 15:20 Blood Pressure 129/52 01/06/17 15:20 O2 Sat by Pulse Oximetry (%) 93 L 01/06/17 09:00 Constitutional: Yes: No Distress, Calm Cardiovascular: Yes: Regular Rate and Rhythm Respiratory: Yes: Regular, CTA Bilaterally Gastrointestinal: Yes: Normal Bowel Sounds, Soft Genitourinary: Yes: Mccurdy Present Musculoskeletal: Yes: WNL Extremities: Yes: WNL Neurological: Yes: Alert, Oriented Psychiatric: Yes: Alert Labs: CBC, BMP 01/06/17 06:00 01/06/17 06:00 INR, PTT INR 1.13 (0.82-1.09) 01/06/17 06:00 Assessment/Plan it is rather odd patient has so much weight loss involuntary so soon patient now looking better Problem List - Problem (1) Sepsis Code(s): A41.9 - SEPSIS, UNSPECIFIED ORGANISM (2) Acute renal failure Code(s): N17.9 - ACUTE KIDNEY FAILURE, UNSPECIFIED Qualifiers: Acute renal failure type: unspecified Qualified Code(s): N17.9 - Acute kidney failure, unspecified (3) Obstructive uropathy Code(s): N13.9 - OBSTRUCTIVE AND REFLUX UROPATHY, UNSPECIFIED (4) Hyperkalemia Code(s): E87.5 - HYPERKALEMIA (5) Lactic acidemia Code(s): E87.2 - ACIDOSIS (6) Leukocytosis Code(s): D72.829 - ELEVATED WHITE BLOOD CELL COUNT, UNSPECIFIED (7) Dysuria Code(s): R30.0 - DYSURIA (8) Weakness Code(s): R53.1 - WEAKNESS (9) HTN (hypertension) Code(s): I10 - ESSENTIAL (PRIMARY) HYPERTENSION (10) Chronic UTI (urinary tract infection) Code(s): N39.0 - URINARY TRACT INFECTION, SITE NOT SPECIFIED (11) Poor appetite Assessment/Plan: - RD Consult Bacteremia gram positive plan continue to monitor patient for turp
[2017-01-06] MEDS ORDERED: PROPOFOL 20 ML ONE ×2 (15:40)
[2017-01-06] MEDS ORDERED: LACTATED RINGERS SOLUTION 1,000 ML IV SCH ×3 (15:45→18:00)
[2017-01-06] MEDS ORDERED: ceFAZolin SODIUM 1 GM VIAL IVPB ONE ×2 (15:52)
[2017-01-06] MEDS ORDERED: HYDROmorphone HCL CARPU-JECT 2 MG/1 ML DISP.SYRIN ONE (16:43)
[2017-01-06] MEDS: HYDROmorphone HCL CARPU-JECT 1 MG/1 ML DISP.SYRIN IVPUSH PRN ×2 (16:45→16:55)
--- NOTE | 2017-01-06 16:46 | OP ---
DATE OF OPERATION: 01/06/2017 PREOPERATIVE DIAGNOSES: Urinary retention, benign prostatic hypertrophy. POSTOPERATIVE DIAGNOSES: Urinary retention, benign prostatic hypertrophy. PROCEDURE: Cystoscopy and transurethral resection of the prostate with bipolar unit. ANESTHESIA: General, . FINDINGS: Obstructive prostate tissue, trabeculated bladder, bladder otherwise without tumors or stones. DRAINS: A 22-Australian 3-way Mccurdy catheter. ESTIMATED BLOOD LOSS: 20 mL. PREOPERATIVE INDICATIONS: The patient is a 72-year-old male who was admitted with renal failure secondary to urinary retention. He also has history of UPJ obstruction and a small calcified mass in his kidney. He comes to the OR for TURP. OPERATION: The patient was brought to the OR, placed on the table in supine position, given general anesthesia, placed in the modified lithotomy position. IV antibiotics were given. Cystoscopy was performed. The distal urethra appeared to be normal. The prostate was obstructive. The bladder had trabeculations throughout. No tumors or stones were seen. Both UOs were visualized. Using the plasma button from the bipolar generator, the prostate tissue was vaporized from the bladder neck to the area just proximal to the verumontanum. Good hemostasis was maintained throughout. Both UOs and the sphincter were visualized after the procedure and were not injured. A 22-Australian Mccurdy catheter was placed for postoperative irrigation. The patient was woken up. Pavan [id number]
--- NOTE | 2017-01-06 17:13 | PN ---
Physical Exam: SUBJECTIVE: Patient seen and examined. States he feels well. For TURP procedure today. OBJECTIVE: Vital Signs Period Temp Pulse Resp BP Sys/Martinez Pulse Ox Last 24 Hr 97.7 F-98.8 F 66-95 18-20 123-143/41-68 93 GENERAL: The patient is awake, alert, and fully oriented, in no acute distress. HEAD: Normal with no signs of trauma. EYES: PERRL, extraocular movements intact, sclera anicteric, conjunctiva clear. No ptosis. LUNGS: Breath sounds equal, clear to auscultation bilaterally, no wheezes, no crackles, no accessory muscle use. HEART: Regular rate and rhythm, S1, S2 without murmur, rub or gallop. ABDOMEN: Soft, nontender, nondistended, normoactive bowel sounds, no guarding, no rebound, no hepatosplenomegaly, no masses. EXTREMITIES: 2+ pulses, warm, well-perfused, no edema. NEUROLOGICAL: Normal speech PSYCH: Normal mood, normal affect. SKIN: Warm, dry, normal turgor, no rashes or lesions noted. Allevyn sacral dressing in place for protection. Skin is intact. Laboratory Results - last 24 hr 01/05/17 01/06/17 01/06/17 06:50 06:00 06:00 WBC 9.4 RBC 3.18 L Hgb 9.9 L Hct 29.3 L MCV 91.8 MCHC 33.7 RDW 13.2 Plt Count 199 MPV 7.4 L Neutrophils % 81.7 Lymphocytes % 6.1 L Monocytes % 7.6 Eosinophils % 3.3 Basophils % 1.3 INR Sodium 139 Potassium 4.3 Chloride 107 Carbon Dioxide 26 Anion Gap 6 L BUN 32 H Creatinine 1.6 H Random Glucose 81 Calcium 8.6 Phosphorus 3.5 D Magnesium 1.9 PTH Intact 37 01/06/17 06:00 WBC RBC Hgb Hct MCV MCHC RDW Plt Count MPV Neutrophils % Lymphocytes % Monocytes % Eosinophils % Basophils % INR 1.13 Sodium Potassium Chloride Carbon Dioxide Anion Gap BUN Creatinine Random Glucose Calcium Phosphorus Magnesium PTH Intact Active Medications Generic Name Dose Route Start Last Admin Trade Name Freq PRN Reason Stop Dose Admin Acetaminophen 650 mg 12/31/16 19:26 Tylenol - PO Q6H PRN FEVER OR PAIN Amlodipine Besylate 10 mg 01/01/17 10:00 01/06/17 12:41 Norvasc - PO Not Given DAILY ELIO Dutasteride 0.5 mg 01/01/17 10:00 01/06/17 12:41 Avodart - PO Not Given DAILY ELIO Lactated Ringer's 1,000 mls @ 125 mls/hr 01/06/17 15:45 Lactated Ringers Solution IV ASDIR ELIO Cefazolin Sodium 50 mls @ 100 mls/hr 01/06/17 18:00 Ancef 1gm Ivpb (Pre-Docked) IVPB Q8H-IV ELIO Magnesium Oxide 400 mg 01/01/17 10:00 01/06/17 12:41 Mag-Ox - PO Not Given DAILY ELIO Metoprolol Tartrate 25 mg 12/31/16 22:00 01/06/17 12:41 Lopressor - PO Not Given BID ELIO Ondansetron HCl 4 mg 01/06/17 15:31 Zofran Injection IVPUSH 01/06/17 21:32 Q6H PRN NAUSEA AND/OR VOMITING Tamsulosin HCl 0.4 mg 12/31/16 22:00 01/05/17 21:26 Flomax - PO 0.4 mg HS ELIO Administration ASSESSMENT/PLAN: Patient is a 71 year old male with a past medical history of hypertension, diastolic heart failure, DVT, CKD, BPH who was admist 71 year-old man with a PMH of HTN, diastolic HF, h/o DVT, CKD, and BPH admitted for FABIAN, UTI, sepsis, urinary retention, bilateral hydronephrosis, and possible renal mass. ID: Sepsis - secondary to UTI, now resolved Assessment/Plan: Lactic acidosis resolved. 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/BPH Assessment/Plan: Cr 6.4 on admission, now 1.6 Has herrera catheter TURP scheduled for today Cardiology cleared pt for procedure Patient is poor follow up and refusing to leave hospital with herrera : Renal aneurysm Assessment/Plan: Evaluated by vascular concerning renal lesion As per vascular, no need for further intervention if it is an aneurysm Will need repeat renal ultrasound in 6 months, intervention needed if lesion increases in size Cardiology: Diastolic heart failure CHF On no Diuresis currently Monitor for volume overload Hypertension - chronic Assessment/Plan: Controlled on Amlodopine 10mg daily and Metoprolol 25mg BID F.E.N. Fluids: adequate PO Electrolytes: within normal limits Nutrition: low sodium, Ensure Prophylaxis: SCDs, oob, ambulation PT evaluation Disposition: Continues to require inpatient hospitalization. Full Code. Visit type - Emergency Visit Emergency Visit: Yes ED Registration Date: 12/30/16 Care time: The patient presented to the Emergency Department on the above date and was hospitalized for further evaluation of their emergent condition. - New Patient This patient is new to me today: No - Critical Care Critical Care patient: No - Discharge Referral Referred to [facility] Med P[facility] No
[2017-01-06] MEDS ORDERED: ACETAMINOPHEN 325 MG TABLET (FP) PO PRN (17:21)
[2017-01-06 17:52] LABS: BASOPHIL 1.4 % (0-2.0); EOSINOPHIL 2.3 % (0-4.5); MCH 31.4 pg (25.7-33.7); MCHC 34.1 g/dl (32.0-35.9); MEAN CELL VOLUME 91.9 fl (80-96); MEAN PLT VOLUME 7.6 fl (7.5-11.1); NEUTROPHILS 82.1 % (42.8-82.8); PLATELET COUNT 242 K/MM3 (134-434); RDW 13.6 % (11.9-15.9); WHITE BLOOD COUNT 8.1 K/mm3 (4.0-10.0)
[2017-01-06] MEDS ORDERED: CEFAZOLIN (PRE-DOCKED) 50 ML IVPB SCH (18:00)
[2017-01-06 18:11] LABS: CALCIUM 8.7 mg/dL (8.5-10.1); CREATININE 1.6 mg/dL (0.7-1.3)
[2017-01-06] MEDS: TAMSULOSIN HCL 0.4 MG CAP.ER.24H (FP) PO SCH (21:43)
[2017-01-07] MEDS: CEFAZOLIN (PRE-DOCKED) 50 ML IVPB SCH ×3 (02:00→18:06)
[2017-01-07 08:06] LABS: BASOPHIL 0.2 % (0-2.0); EOSINOPHIL 0.1 % (0-4.5); MCH 30.5 pg (25.7-33.7); MEAN CELL VOLUME 92.4 fl (80-96); MEAN PLT VOLUME 7.4 fl (7.5-11.1); NEUTROPHILS 89.9 % (42.8-82.8); PLATELET COUNT 241 K/MM3 (134-434); RDW 13.6 % (11.9-15.9); WHITE BLOOD COUNT 11.4 K/mm3 (4.0-10.0)
[2017-01-07 09:03] LABS: CALCIUM 8.8 mg/dL (8.5-10.1)
[2017-01-07 09:05] LABS: CREATININE 1.8 mg/dL (0.7-1.3)
[2017-01-07] MEDS: MAGNESIUM OXIDE 400 MG TABLET (FP) PO SCH (10:26)
[2017-01-07] MEDS: METOPROLOL TARTRATE 25 MG TABLET (FP) PO SCH ×2 (10:26→21:44)
[2017-01-07] MEDS ORDERED: PT OWN MED DRAWER 7, Y5N ONE (10:26)
[2017-01-07] MEDS: amLODIPine BESYLATE 10 MG TABLET (FP) PO SCH (10:26)
[2017-01-07] MEDS: DUTASTERIDE 0.5 MG CAP (FP) PO SCH (10:27)
--- NOTE | 2017-01-07 11:43 | PN ---
Progress Note (short form) - Note Progress Note: POD #1 - s/p TURP under general anesthesia. Pt. doing well, resting comfortably in bed. No complaints. No apparent anesthetic complications noted. Continue current care.
--- NOTE | 2017-01-07 12:47 | PN ---
Progress Note (short form) - Note Progress Note: Renal Follow up for FABIAN on CKD/Hyperkalemia Pt seen and examined at the bedside no complaints s/p TURP yesterday no sob or chest pain Vital Signs Temperature 98.5 F 01/07/17 10:00 Pulse Rate 77 01/07/17 10:00 Respiratory Rate 18 01/07/17 10:00 Blood Pressure 130/45 01/07/17 10:00 O2 Sat by Pulse Oximetry (%) 91 L 01/06/17 21:00 Intake & Output 01/04/17 01/05/17 01/06/17 01/07/17 23:59 23:59 23:59 23:59 Intake Total 2250 091 5230 6350 Output Total 013 432 5716 4000 Balance 550 75 -3970 2350 Weight 100 lb 6.4 oz Gen: NAD CVS: RRR, No M/R Lungs: CTA Abd: soft NT/ND Ext: No edema : Herrera in place CBC, BMP 01/07/17 07:30 01/07/17 07:30 Laboratory Tests 01/07/17 07:30 Calcium 8.8 Current Medications Acetaminophen (Tylenol -) 650 mg PO Q6H PRN PRN Reason: FEVER OR PAIN Amlodipine Besylate (Norvasc -) 10 mg PO DAILY [facility] Last Admin: 01/07/17 10:26 Dose: 10 mg Dutasteride (Avodart -) 0.5 mg PO DAILY [facility] Last Admin: 01/07/17 10:27 Dose: 0.5 mg Cefazolin Sodium (Ancef 1gm Ivpb (Pre-Docked)) 50 mls @ 100 mls/hr IVPB Q8H-IV [facility] Last Admin: 01/07/17 10:25 Dose: 100 mls/hr Sodium Chloride (1/2 Normal Saline) 1,000 mls @ 100 mls/hr IV ASDIR ELIO Magnesium Oxide (Mag-Ox -) 400 mg PO DAILY [facility] Last Admin: 01/07/17 10:26 Dose: 400 mg Metoprolol Tartrate (Lopressor -) 25 mg PO BID [facility] Last Admin: 01/07/17 10:26 Dose: 25 mg Tamsulosin HCl (Flomax -) 0.4 mg PO HS [facility] Last Admin: 01/06/17 21:43 Dose: 0.4 mg A/P 71 year old Gentleman with PMhx of CKD, Hypertension, BPH with PVR, CHF, Aortic Insufficiency, DVT presented with weakness and dysuria and found to have FABIAN with BUN/Cr of 175/6.4 and K of 8. #Acute Kidney Injury on CKD secondary to obstruction at the level of the prostate Renal function slightly worsening pt with large amount of urine output over the last 2 days will restart hypotnoic fluids as pt could be developing mild volume depletion Trend BUN/Cr herrera and CBI management as per urology #Hypercalcemia initial elevation likely related to volume contraction corrected CA is WNL #Mass lesion on the kidney/Renal Artery Aneurysm Urology and vascular recommendations noted no acute indication as per vascular Thank you Flex Lo DO
[2017-01-07] MEDS: SODIUM CHLORIDE 0.45% 1,000 ML IV SCH (14:40)
--- NOTE | 2017-01-07 14:59 | PN ---
Progress Note, Physician History of Present Illness: stable doing nwell now on cbi - Current Medication List Current Medications: Active Medications Acetaminophen (Tylenol -) 650 mg PO Q6H PRN PRN Reason: FEVER OR PAIN Amlodipine Besylate (Norvasc -) 10 mg PO DAILY [facility] BY [facility] Last Admin: 01/07/17 10:26 Dose: 10 mg Dutasteride (Avodart -) 0.5 mg PO DAILY [facility] Last Admin: 01/07/17 10:27 Dose: 0.5 mg Cefazolin Sodium (Ancef 1gm Ivpb (Pre-Docked)) 50 mls @ 100 mls/hr IVPB Q8H-IV [facility]PL[facility] BY [facility] Last Admin: 01/07/17 10:25 Dose: 100 mls/hr Sodium Chloride (1/2 Normal Saline) 1,000 mls @ 100 mls/hr IV ASDIR REPLACED BY [facility] Last Admin: 01/07/17 14:40 Dose: 100 mls/hr Magnesium Oxide (Mag-Ox -) 400 mg PO DAILY [facility] Last Admin: 01/07/17 10:26 Dose: 400 mg Metoprolol Tartrate (Lopressor -) 25 mg PO BID [facility] Last Admin: 01/07/17 10:26 Dose: 25 mg Tamsulosin HCl (Flomax -) 0.4 mg PO HS [facility]PLACED BY [facility] Last Admin: 01/06/17 21:43 Dose: 0.4 mg - Objective Vital Signs: Vital Signs Temperature 97.9 F 01/07/17 13:39 Pulse Rate 74 01/07/17 13:39 Respiratory Rate 18 01/07/17 13:39 Blood Pressure 128/60 01/07/17 13:39 O2 Sat by Pulse Oximetry (%) 91 L 01/06/17 21:00 Constitutional: Yes: No Distress, Calm Neck: Yes: Supple Cardiovascular: Yes: Regular Rate and Rhythm Respiratory: Yes: Regular, CTA Bilaterally Gastrointestinal: Yes: Normal Bowel Sounds, Soft Genitourinary: Yes: Mccurdy Present, Other (cbi) Musculoskeletal: Yes: WNL Extremities: Yes: WNL Neurological: Yes: Alert, Oriented Psychiatric: Yes: Alert Labs: CBC, BMP 01/07/17 07:30 01/07/17 07:30 INR, PTT INR 1.13 (0.82-1.09) 01/06/17 06:00 Assessment/Plan it is rather odd patient has so much weight loss involuntary so soon patient now looking better Problem List - Problem (1) Sepsis Code(s): A41.9 - SEPSIS, UNSPECIFIED ORGANISM (2) Acute renal failure Code(s): N17.9 - ACUTE KIDNEY FAILURE, UNSPECIFIED Qualifiers: Acute renal failure type: unspecified Qualified Code(s): N17.9 - Acute kidney failure, unspecified (3) Obstructive uropathy Code(s): N13.9 - OBSTRUCTIVE AND REFLUX UROPATHY, UNSPECIFIED (4) Hyperkalemia Code(s): E87.5 - HYPERKALEMIA (5) Lactic acidemia Code(s): E87.2 - ACIDOSIS (6) Leukocytosis Code(s): D72.829 - ELEVATED WHITE BLOOD CELL COUNT, UNSPECIFIED (7) Dysuria Code(s): R30.0 - DYSURIA (8) Weakness Code(s): R53.1 - WEAKNESS (9) HTN (hypertension) Code(s): I10 - ESSENTIAL (PRIMARY) HYPERTENSION (10) Chronic UTI (urinary tract infection) Code(s): N39.0 - URINARY TRACT INFECTION, SITE NOT SPECIFIED (11) Poor appetite Assessment/Plan: - RD Consult Bacteremia gram positive plan continue to monitor post turp patient doing well continue cbi as per urology rest as per the team
--- NOTE | 2017-01-07 16:10 | PN ---
Progress Note (short form) - Note Progress Note: POD #1 TURP urine is clear on CBI trial of void 01/08
--- NOTE | 2017-01-07 16:59 | PN ---
Physical Exam: SUBJECTIVE: Patient seen and examined. Patient is s/p Turp, on CBI. Denies any pain, bladder spasms or discomfort. OBJECTIVE: POD #1 TURP - on continuous bladder irrigation Vital Signs Period Temp Pulse Resp BP Sys/Martinez Pulse Ox Last 24 Hr 97.5 F-98.5 F 45-77 14-20 124-143/37-98 91-100 GENERAL: The patient is awake, alert, and fully oriented, in no acute distress. HEAD: Normal with no signs of trauma. EYES: PERRL, extraocular movements intact, sclera anicteric, conjunctiva clear. No ptosis. LUNGS: Breath sounds equal, clear to auscultation bilaterally, no wheezes, no crackles, no accessory muscle use. HEART: Regular rate and rhythm, S1, S2 without murmur, rub or gallop. ABDOMEN: Soft, nontender, nondistended, normoactive bowel sounds, no guarding, no rebound, no hepatosplenomegaly, no masses. EXTREMITIES: 2+ pulses, warm, well-perfused, no edema. NEUROLOGICAL: Normal speech PSYCH: Normal mood, normal affect. SKIN: Warm, dry, normal turgor, no rashes or lesions noted. Allevyn sacral dressing in place for protection. Skin is intact. Laboratory Results - last 24 hr 01/06/17 01/06/17 01/07/17 17:00 17:00 07:30 WBC 8.1 11.4 H D RBC 3.15 L 3.50 L Hgb 9.9 L 10.7 L Hct 28.9 L 32.4 L MCV 91.9 92.4 MCHC 34.1 33.0 RDW 13.6 13.6 Plt Count 242 D 241 MPV 7.6 7.4 L Neutrophils % 82.1 89.9 H Lymphocytes % 6.3 L 4.0 L D Monocytes % 7.9 5.8 Eosinophils % 2.3 0.1 D Basophils % 1.4 0.2 Sodium 141 Potassium 4.4 Chloride 107 Carbon Dioxide 26 Anion Gap 8 BUN 31 H Creatinine 1.6 H Random Glucose 72 L Calcium 8.7 01/07/17 07:30 WBC RBC Hgb Hct MCV MCHC RDW Plt Count MPV Neutrophils % Lymphocytes % Monocytes % Eosinophils % Basophils % Sodium 138 Potassium 4.4 Chloride 104 Carbon Dioxide 27 Anion Gap 7 L BUN 40 H D Creatinine 1.8 H Random Glucose 99 D Calcium 8.8 Active Medications Generic Name Dose Route Start Last Admin Trade Name Freq PRN Reason Stop Dose Admin Acetaminophen 650 mg 01/06/17 17:21 Tylenol - PO Q6H PRN FEVER OR PAIN Amlodipine Besylate 10 mg 01/07/17 10:00 01/07/17 10:26 Norvasc - PO 10 mg DAILY ELIO Administration Dutasteride 0.5 mg 01/07/17 10:00 01/07/17 10:27 Avodart - PO 0.5 mg DAILY ELIO Administration Cefazolin Sodium 50 mls @ 100 mls/hr 01/07/17 02:00 01/07/17 10:25 Ancef 1gm Ivpb (Pre-Docked) IVPB 100 mls/hr Q8H-IV ELIO Administration Sodium Chloride 1,000 mls @ 100 mls/hr 01/07/17 12:00 01/07/17 14:40 1/2 Normal Saline IV 100 mls/hr ASDIR ELIO Administration Magnesium Oxide 400 mg 01/07/17 10:00 01/07/17 10:26 Mag-Ox - PO 400 mg DAILY ELIO Administration Metoprolol Tartrate 25 mg 01/06/17 22:00 01/07/17 10:26 Lopressor - PO 25 mg BID ELIO Administration Tamsulosin HCl 0.4 mg 01/06/17 22:00 01/06/17 21:43 Flomax - PO 0.4 mg HS ELIO Administration ASSESSMENT/PLAN: Patient is a 71 year old male with a past medical history of hypertension, diastolic heart failure, DVT, CKD, BPH who was admist 71 year-old man with a PMH of HTN, diastolic HF, h/o DVT, CKD, and BPH admitted for FABIAN, UTI, sepsis, urinary retention, bilateral hydronephrosis, and possible renal mass. Patient is post op day #1 s/p TURP, now on continuous bladder irrigation. 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 Pt treated with Zosyn, ceftriaxone and Vanco remains afebrile, adequate urine output Monitor off antibiotics ID following : Renal aneurysm Assessment/Plan: Evaluated by vascular concerning renal lesion Will need repeat renal ultrasound in 6 months, intervention needed if lesion increases in size Cardiology: Diastolic heart failure CHF On no Diuresis currently Monitor for volume overload Hypertension - chronic Assessment/Plan: Controlled on Amlodopine 10mg daily and Metoprolol 25mg BID F.E.N. Fluids: adequate PO Electrolytes: within normal limits Nutrition: low sodium, Ensure Prophylaxis: SCDs, oob, ambulation, noted to have some hematuria s/p TURP, AC deferred. PT evaluation Disposition: Continues to require inpatient hospitalization. On discharge will need urology follow up and repeat ultrasound in 6 months for renal aneurysm. Full Code. Visit type - Emergency Visit Emergency Visit: Yes ED Registration Date: 12/30/16 Care time: The patient presented to the Emergency Department on the above date and was hospitalized for further evaluation of their emergent condition. - New Patient This patient is new to me today: No - Critical Care Critical Care patient: No - Discharge Referral Referred to [facility] Med [facility].: No
[2017-01-07] MEDS: TAMSULOSIN HCL 0.4 MG CAP.ER.24H (FP) PO SCH (21:44)
[2017-01-08] MEDS: CEFAZOLIN (PRE-DOCKED) 50 ML IVPB SCH ×3 (01:24→17:41)
[2017-01-08] MEDS: SODIUM CHLORIDE 0.45% 1,000 ML IV SCH (03:02)
[2017-01-08 06:11] LABS: PARATHYROID RELATED PROTEIN 1.3 pmol/L (.)
[2017-01-08 07:27] LABS: BASOPHIL 0.9 % (0-2.0); EOSINOPHIL 4.2 % (0-4.5); MCH 31.1 pg (25.7-33.7); MCHC 33.8 g/dl (32.0-35.9); MEAN PLT VOLUME 7.7 fl (7.5-11.1); NEUTROPHILS 81.1 % (42.8-82.8); PLATELET COUNT 225 K/MM3 (134-434); RDW 13.7 % (11.9-15.9); WHITE BLOOD COUNT 9.7 K/mm3 (4.0-10.0)
[2017-01-08 09:15] LABS: CALCIUM 8.4 mg/dL (8.5-10.1); CREATININE 1.6 mg/dL (0.7-1.3); MAGNESIUM 1.9 mg/dL (1.8-2.4)
[2017-01-08] MEDS: MAGNESIUM OXIDE 400 MG TABLET (FP) PO SCH (09:30)
[2017-01-08] MEDS: amLODIPine BESYLATE 10 MG TABLET (FP) PO SCH (09:30)
[2017-01-08] MEDS: METOPROLOL TARTRATE 25 MG TABLET (FP) PO SCH ×2 (09:30→21:24)
[2017-01-08] MEDS: DUTASTERIDE 0.5 MG CAP (FP) PO SCH (09:35)
--- NOTE | 2017-01-08 12:24 | PN ---
Progress Note, Physician History of Present Illness: stable doing well cbi stopped foleys removed - Current Medication List Current Medications: Active Medications Acetaminophen (Tylenol -) 650 mg PO Q6H PRN PRN Reason: FEVER OR PAIN Amlodipine Besylate (Norvasc -) 10 mg PO DAILY [facility] Last Admin: 01/08/17 09:30 Dose: 10 mg Dutasteride (Avodart -) 0.5 mg PO DAILY [facility] Last Admin: 01/08/17 09:35 Dose: 0.5 mg Cefazolin Sodium (Ancef 1gm Ivpb (Pre-Docked)) 50 mls @ 100 mls/hr IVPB Q8H-IV [facility] Last Admin: 01/08/17 09:31 Dose: 100 mls/hr Sodium Chloride (1/2 Normal Saline) 1,000 mls @ 100 mls/hr IV ASDIR [facility] Last Admin: 01/08/17 03:02 Dose: 100 mls/hr Magnesium Oxide (Mag-Ox -) 400 mg PO DAILY [facility] Last Admin: 01/08/17 09:30 Dose: 400 mg Metoprolol Tartrate (Lopressor -) 25 mg PO BID [facility] Last Admin: 01/08/17 09:30 Dose: 25 mg Tamsulosin HCl (Flomax -) 0.4 mg PO HS [facility] Last Admin: 01/07/17 21:44 Dose: 0.4 mg - Objective Vital Signs: Vital Signs Temperature 97.2 F L 01/08/17 09:00 Pulse Rate 74 01/08/17 09:00 Respiratory Rate 18 01/08/17 09:00 Blood Pressure 126/62 01/08/17 09:00 O2 Sat by Pulse Oximetry (%) 95 01/07/17 21:00 Constitutional: Yes: No Distress, Calm Cardiovascular: Yes: Regular Rate and Rhythm Respiratory: Yes: Regular, CTA Bilaterally Gastrointestinal: Yes: Normal Bowel Sounds, Soft Musculoskeletal: Yes: WNL Extremities: Yes: WNL Neurological: Yes: Alert Psychiatric: Yes: Alert, Oriented Labs: CBC, BMP 01/08/17 06:10 01/08/17 06:10 INR, PTT INR 1.13 (0.82-1.09) 01/06/17 06:00 Assessment/Plan it is rather odd patient has so much weight loss involuntary so soon patient now looking better Problem List - Problem (1) Sepsis Code(s): A41.9 - SEPSIS, UNSPECIFIED ORGANISM (2) Acute renal failure Code(s): N17.9 - ACUTE KIDNEY FAILURE, UNSPECIFIED Qualifiers: Acute renal failure type: unspecified Qualified Code(s): N17.9 - Acute kidney failure, unspecified (3) Obstructive uropathy Code(s): N13.9 - OBSTRUCTIVE AND REFLUX UROPATHY, UNSPECIFIED (4) Hyperkalemia Code(s): E87.5 - HYPERKALEMIA (5) Lactic acidemia Code(s): E87.2 - ACIDOSIS (6) Leukocytosis Code(s): D72.829 - ELEVATED WHITE BLOOD CELL COUNT, UNSPECIFIED (7) Dysuria Code(s): R30.0 - DYSURIA (8) Weakness Code(s): R53.1 - WEAKNESS (9) HTN (hypertension) Code(s): I10 - ESSENTIAL (PRIMARY) HYPERTENSION (10) Chronic UTI (urinary tract infection) Code(s): N39.0 - URINARY TRACT INFECTION, SITE NOT SPECIFIED (11) Poor appetite Assessment/Plan: - RD Consult Bacteremia gram positive plan continue to monitor post turp patient doing well foleys removed
--- NOTE | 2017-01-08 12:59 | PN ---
Progress Note (short form) - Note Progress Note: Renal Follow up for FABIAN on CKD/Hyperkalemia Pt seen and examined at the bedside no complaints no sob or chest pain herrera removed, pt voiding pink urine Vital Signs Temperature 97.2 F L 01/08/17 09:00 Pulse Rate 74 01/08/17 09:00 Respiratory Rate 18 01/08/17 09:00 Blood Pressure 126/62 01/08/17 09:00 O2 Sat by Pulse Oximetry (%) 95 01/07/17 21:00 Intake & Output 01/05/17 01/06/17 01/07/17 01/08/17 23:59 23:59 23:59 23:59 Intake Total 975 3350 63499 1565 Output Total 900 7320 72116 3000 Balance 75 -3970 150 -1435 Weight 100 lb 6.4 oz 103 lb 9 oz Gen: NAD CVS: RRR, No M/R Lungs: CTA Abd: soft NT/ND Ext: No edema : Herrera in place CBC, BMP 01/08/17 06:10 01/08/17 06:10 Current Medications Acetaminophen (Tylenol -) 650 mg PO Q6H PRN PRN Reason: FEVER OR PAIN Amlodipine Besylate (Norvasc -) 10 mg PO DAILY [facility] Last Admin: 01/08/17 09:30 Dose: 10 mg Dutasteride (Avodart -) 0.5 mg PO DAILY [facility] Last Admin: 01/08/17 09:35 Dose: 0.5 mg Cefazolin Sodium (Ancef 1gm Ivpb (Pre-Docked)) 50 mls @ 100 mls/hr IVPB Q8H-IV [facility] Last Admin: 01/08/17 09:31 Dose: 100 mls/hr Magnesium Oxide (Mag-Ox -) 400 mg PO DAILY [facility] Last Admin: 01/08/17 09:30 Dose: 400 mg Metoprolol Tartrate (Lopressor -) 25 mg PO BID [facility] Last Admin: 01/08/17 09:30 Dose: 25 mg Tamsulosin HCl (Flomax -) 0.4 mg PO HS [facility] Last Admin: 01/07/17 21:44 Dose: 0.4 mg A/P 71 year old Gentleman with PMhx of CKD, Hypertension, BPH with PVR, CHF, Aortic Insufficiency, DVT presented with weakness and dysuria and found to have FABIAN with BUN/Cr of 175/6.4 and K of 8. #Acute Kidney Injury on CKD secondary to obstruction at the level of the prostate renal function improving, down trending s/p IVF pt tolerating diet herrera removed d/c IVF trend BUN/cr Thank you Flex Lo DO
--- NOTE | 2017-01-08 16:12 | PN ---
Physical Exam: SUBJECTIVE: Patient seen and examined. States he feels well. He is ambulating up and down the pod without difficulty. S/P TURP, feels better. Denies any chest pain/shortness of breath ambulating in carpenter ways. OBJECTIVE: Discharge planning Vital Signs Period Temp Pulse Resp BP Sys/Martinez Pulse Ox Last 24 Hr 97.2 F-99.0 F 69-79 16-20 126-135/49-62 92-95 GENERAL: The patient is awake, alert, and fully oriented, in no acute distress. HEAD: Normal with no signs of trauma. EYES: PERRL, extraocular movements intact, sclera anicteric, conjunctiva clear. No ptosis. LUNGS: Breath sounds equal, clear to auscultation bilaterally, no wheezes, no crackles, no accessory muscle use. HEART: Regular rate and rhythm, S1, S2 without murmur, rub or gallop. ABDOMEN: Soft, nontender, nondistended, normoactive bowel sounds, no guarding, no rebound, no hepatosplenomegaly, no masses. EXTREMITIES: 2+ pulses, warm, well-perfused, no edema. NEUROLOGICAL: Normal speech PSYCH: Normal mood, normal affect. SKIN: Warm, dry, normal turgor, no rashes or lesions noted. Allevyn sacral dressing in place for protection. Skin is intact. Laboratory Results - last 24 hr 12/31/16 01/08/17 01/08/17 17:00 06:10 06:10 WBC 9.7 RBC 3.06 L Hgb 9.5 L D Hct 28.2 L MCV 92.0 MCHC 33.8 RDW 13.7 Plt Count 225 MPV 7.7 Neutrophils % 81.1 Lymphocytes % 5.8 L D Monocytes % 8.0 Eosinophils % 4.2 D Basophils % 0.9 D Sodium 143 Potassium 4.2 Chloride 108 H Carbon Dioxide 26 Anion Gap 9 BUN 30 H D Creatinine 1.6 H Random Glucose 77 D Calcium 8.4 L Phosphorus 3.0 Magnesium 1.9 PTH Related Protein 1.3 Active Medications Generic Name Dose Route Start Last Admin Trade Name Freq PRN Reason Stop Dose Admin Acetaminophen 650 mg 01/06/17 17:21 Tylenol - PO Q6H PRN FEVER OR PAIN Amlodipine Besylate 10 mg 01/07/17 10:00 01/08/17 09:30 Norvasc - PO 10 mg DAILY ELIO Administration Dutasteride 0.5 mg 01/07/17 10:00 01/08/17 09:35 Avodart - PO 0.5 mg DAILY ELIO Administration Cefazolin Sodium 50 mls @ 100 mls/hr 01/07/17 02:00 01/08/17 09:31 Ancef 1gm Ivpb (Pre-Docked) IVPB 100 mls/hr Q8H-IV ELIO Administration Magnesium Oxide 400 mg 01/07/17 10:00 01/08/17 09:30 Mag-Ox - PO 400 mg DAILY ELIO Administration Metoprolol Tartrate 25 mg 01/06/17 22:00 01/08/17 09:30 Lopressor - PO 25 mg BID ELIO Administration Tamsulosin HCl 0.4 mg 01/06/17 22:00 01/07/17 21:44 Flomax - PO 0.4 mg HS ELIO Administration ASSESSMENT/PLAN: Patient is a 71 year old male with a past medical history of hypertension, diastolic heart failure, DVT, CKD, BPH who was admist 71 year-old man with a PMH of HTN, diastolic HF, h/o DVT, CKD, and BPH admitted for FABIAN, UTI, sepsis, urinary retention, bilateral hydronephrosis, and possible renal mass. Patient is post op day #2 s/p TURP, herrera d/renetta, urinating in urinal, pink tinged. 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 ID: Sepsis - secondary to UTI - resolved Assessment/Plan: Lactic acidosis resolved. Pt treated with Zosyn, ceftriaxone and Vanco remains afebrile, adequate urine output Monitor off antibiotics ID following : Renal aneurysm Assessment/Plan: Evaluated by vascular concerning renal lesion Will need repeat renal ultrasound in 6 months, intervention needed if lesion increases in size Cardiology: Diastolic heart failure CHF On no Diuresis currently Monitor for volume overload Hypertension - chronic Assessment/Plan: Controlled on Amlodopine 10mg daily and Metoprolol 25mg BID F.E.N. Fluids: adequate PO Electrolytes: within normal limits Nutrition: low sodium, Ensure Prophylaxis: SCDs, oob, ambulation, noted to have some hematuria s/p TURP, AC deferred. PT evaluation Disposition: Discharge once cleared by renal/urology. Discharge planning: Repeat renal ultrasound in 6 months, intervention needed if lesion increases in size. Full Code. Visit type - Emergency Visit Emergency Visit: Yes ED Registration Date: 12/30/16 Care time: The patient presented to the Emergency Department on the above date and was hospitalized for further evaluation of their emergent condition. - New Patient This patient is new to me today: No - Critical Care Critical Care patient: No - Discharge Referral Referred to [facility] No
[2017-01-08] MEDS: TAMSULOSIN HCL 0.4 MG CAP.ER.24H (FP) PO SCH (21:25)
[2017-01-09] MEDS: CEFAZOLIN (PRE-DOCKED) 50 ML IVPB SCH ×3 (02:45→17:17)
[2017-01-09 07:59] LABS: BASOPHIL 1.4 % (0-2.0); MCHC 33.3 g/dl (32.0-35.9); MEAN CELL VOLUME 92.9 fl (80-96); MEAN PLT VOLUME 7.1 fl (7.5-11.1); NEUTROPHILS 77.1 % (42.8-82.8); PLATELET COUNT 228 K/MM3 (134-434); RDW 14.1 % (11.9-15.9); WHITE BLOOD COUNT 7.6 K/mm3 (4.0-10.0)
[2017-01-09 08:33] LABS: CALCIUM 8.3 mg/dL (8.5-10.1); CREATININE 1.7 mg/dL (0.7-1.3); PHOSPHOROUS 2.9 mg/dL (2.5-4.9)
[2017-01-09] MEDS: amLODIPine BESYLATE 10 MG TABLET (FP) PO SCH (10:18)
[2017-01-09] MEDS: METOPROLOL TARTRATE 25 MG TABLET (FP) PO SCH (10:18)
[2017-01-09] MEDS: MAGNESIUM OXIDE 400 MG TABLET (FP) PO SCH (10:19)
[2017-01-09] MEDS: DUTASTERIDE 0.5 MG CAP (FP) PO SCH (10:19)
--- NOTE | 2017-01-09 11:47 | DS ---
Physical Exam: SUBJECTIVE: Patient seen and examined. He is walking up and down the pod. Tolerating room air, in no acute distress. OBJECTIVE: Vital Signs Period Temp Pulse Resp BP Sys/Martinez Pulse Ox Last 24 Hr 97.7 F-98.7 F 75-79 18-20 125-151/53-79 95 PHYSICAL EXAM GENERAL: The patient is awake, alert, and fully oriented, in no acute distress. HEAD: Normal with no signs of trauma. EYES: PERRL, extraocular movements intact, sclera anicteric, conjunctiva clear. No ptosis. LUNGS: Breath sounds equal, clear to auscultation bilaterally, no wheezes, no crackles, no accessory muscle use. HEART: Regular rate and rhythm, S1, S2 without murmur, rub or gallop. ABDOMEN: Soft, nontender, nondistended, normoactive bowel sounds, no guarding, no rebound, no hepatosplenomegaly, no masses. EXTREMITIES: 2+ pulses, warm, well-perfused, no edema. NEUROLOGICAL: Normal speech PSYCH: Normal mood, normal affect. SKIN: Warm, dry, normal turgor, no rashes or lesions noted. Allevyn sacral dressing in place for protection. Skin is intact. LABS Laboratory Results - last 24 hr 01/09/17 01/09/17 07:25 07:25 WBC 7.6 RBC 3.16 L Hgb 9.8 L Hct 29.3 L MCV 92.9 MCHC 33.3 RDW 14.1 Plt Count 228 MPV 7.1 L Neutrophils % 77.1 Lymphocytes % 6.1 L Monocytes % 9.4 Eosinophils % 6.0 H Basophils % 1.4 Sodium 142 Potassium 4.4 Chloride 107 Carbon Dioxide 27 Anion Gap 8 BUN 30 H Creatinine 1.7 H Random Glucose 86 Calcium 8.3 L Phosphorus 2.9 Magnesium 2.0 HOSPITAL COURSE: Date of Admission:12/30/16 Date of Discharge: 01/09/17 Patient is a 71 year old male with a past medical history of hypertension, diastolic heart failure, DVT, CKD, BPH who was admist 71 year-old man with a PMH of HTN, diastolic HF, h/o DVT, CKD, and BPH admitted for FABIAN, UTI, sepsis, urinary retention, bilateral hydronephrosis, and possible renal mass. Patient is post op day #3 s/p TURP, herrera d/renetta, urinating in urinal, pink tinged. Can follow up with urologist as an outpatient. 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 ID: Sepsis - secondary to UTI - resolved Assessment/Plan: Lactic acidosis resolved. Pt treated with Zosyn, ceftriaxone and Vanco remains afebrile, adequate urine output Monitor off antibiotics ID following : Renal aneurysm Assessment/Plan: Evaluated by vascular concerning renal lesion Will need repeat renal ultrasound in 6 months, intervention needed if lesion increases in size Cardiology: Diastolic heart failure CHF On no Diuresis currently Monitor for volume overload Hypertension - chronic Assessment/Plan: Controlled on Amlodopine 10mg daily and Metoprolol 25mg BID Disposition: Discharge planning: Repeat renal ultrasound in 6 months, intervention needed if lesion increases in size. Please see urologist upon discharge. Full Code. Minutes to complete discharge: 60 Discharge Summary Reason For Visit: RENAL FAILURE Current Active Problems Acute renal failure (Acute) Chronic UTI (urinary tract infection) (Acute) DVT prophylaxis (Acute) HTN (hypertension) (Acute) Hyperkalemia (Acute) Lactic acidemia (Acute) Leukocytosis (Acute) Obstructive uropathy (Acute) Poor appetite (Acute) Sepsis (Acute) Weakness (Acute) Condition: Improved - Instructions Diet, Activity, Other Instructions: Please follow up with your PCP and Urologist 3 to 5 days after discharge for repeat blood work. You need urology follow up and repeat ultrasound in 6 months for renal aneurysm. Please return to the ER with any worsening symptoms. Continue all your home medications. Referrals: Luna Resendiz MD [Primary Care Provider] - Gopal Monsalve MD [Staff Physician] - Lorenza Brandon MD [Staff Physician] - Disposition: HOME - Home Medications Comprehensive Discharge Medication List: Ambulatory Orders Amlodipine Besylate [Norvasc -] 10 mg PO DAILY #0 tablet 11/16/13 Dutasteride [Avodart] 0.5 mg PO DAILY #0 cap 11/16/13 Magnesium Oxide [Mag-Ox -] 400 mg PO DAILY #0 tablet 11/16/13 Metoprolol Tartrate [Lopressor -] 25 mg PO BID #0 tab 11/16/13 Tamsulosin HCl [Flomax -] 0.4 mg PO HS #0 cap.er.24h 11/16/13 This patient is new to me today: No Emergency Visit: Yes ED Registration Date: 12/30/16 Care time: The patient presented to the Emergency Department on the above date and was hospitalized for further evaluation of their emergent condition. Critical Care patient: No - Discharge Referral Referred to [facility] No
--- NOTE | 2017-01-09 17:17 | PN ---
Progress Note, Physician History of Present Illness: stable doing well no issues - Current Medication List Current Medications: Active Medications Acetaminophen (Tylenol -) 650 mg PO Q6H PRN PRN Reason: FEVER OR PAIN Amlodipine Besylate (Norvasc -) 10 mg PO DAILY [facility] Last Admin: 01/09/17 10:18 Dose: 10 mg Dutasteride (Avodart -) 0.5 mg PO DAILY [facility] Last Admin: 01/09/17 10:19 Dose: 0.5 mg Cefazolin Sodium (Ancef 1gm Ivpb (Pre-Docked)) 50 mls @ 100 mls/hr IVPB Q8H-IV [facility] Last Admin: 01/09/17 10:18 Dose: 100 mls/hr Magnesium Oxide (Mag-Ox -) 400 mg PO DAILY [facility] Last Admin: 01/09/17 10:19 Dose: 400 mg Metoprolol Tartrate (Lopressor -) 25 mg PO BID [facility] Last Admin: 01/09/17 10:18 Dose: 25 mg Tamsulosin HCl (Flomax -) 0.4 mg PO HS [facility] Last Admin: 01/08/17 21:25 Dose: 0.4 mg - Objective Vital Signs: Vital Signs Temperature 97.9 F 01/09/17 14:24 Pulse Rate 79 01/09/17 14:24 Respiratory Rate 20 01/09/17 14:24 Blood Pressure 133/59 01/09/17 14:24 O2 Sat by Pulse Oximetry (%) 92 L 01/09/17 09:00 Constitutional: Yes: No Distress, Calm Cardiovascular: Yes: Regular Rate and Rhythm Respiratory: Yes: Regular, CTA Bilaterally Gastrointestinal: Yes: Normal Bowel Sounds, Soft Musculoskeletal: Yes: WNL Extremities: Yes: WNL Neurological: Yes: Alert, Oriented Psychiatric: Yes: Alert Labs: CBC, BMP 01/09/17 07:25 01/09/17 07:25 INR, PTT INR 1.13 (0.82-1.09) 01/06/17 06:00 Assessment/Plan it is rather odd patient has so much weight loss involuntary so soon patient now looking better Problem List - Problem (1) Sepsis Code(s): A41.9 - SEPSIS, UNSPECIFIED ORGANISM (2) Acute renal failure Code(s): N17.9 - ACUTE KIDNEY FAILURE, UNSPECIFIED Qualifiers: Acute renal failure type: unspecified Qualified Code(s): N17.9 - Acute kidney failure, unspecified (3) Obstructive uropathy Code(s): N13.9 - OBSTRUCTIVE AND REFLUX UROPATHY, UNSPECIFIED (4) Hyperkalemia Code(s): E87.5 - HYPERKALEMIA (5) Lactic acidemia Code(s): E87.2 - ACIDOSIS (6) Leukocytosis Code(s): D72.829 - ELEVATED WHITE BLOOD CELL COUNT, UNSPECIFIED (7) Dysuria Code(s): R30.0 - DYSURIA (8) Weakness Code(s): R53.1 - WEAKNESS (9) HTN (hypertension) Code(s): I10 - ESSENTIAL (PRIMARY) HYPERTENSION (10) Chronic UTI (urinary tract infection) Code(s): N39.0 - URINARY TRACT INFECTION, SITE NOT SPECIFIED (11) Poor appetite Assessment/Plan: - RD Consult Bacteremia gram positive plan continue to monitor post turp doing well no issues can stop all abx
[2017-01-09 18:19] VITALS: BP 137/60; PULSE 73; TEMP 98.6
== END 2017-01-09 18:15 | disposition home or self-care (01) | DRG 853 ==
LOC: FER 19:34 → JICU 12-30 04:10 → J5S 12-31 21:33
PROVIDERS: ADMIT Internal Medicine; ATTEND Nurse Practitioner Family
PROC: 0TJB8ZZ Inspection of Bladder, Via Natural or Artificial Opening Endoscopic (ICD-10-PCS; 2017-01-06)
PROC: 0VB08ZZ Excision of Prostate, Via Natural or Artificial Opening Endoscopic (ICD-10-PCS; principal; 2017-01-06 10:30)
DX: A41.9 Sepsis, unspecified organism (principal); G93.41 Metabolic encephalopathy; N17.9 Acute kidney failure, unspecified; N39.0 Urinary tract infection, site not specified; R64 Cachexia; Z68.1 Body mass index [BMI] 19.9 or less, adult; E87.2 Acidosis; N13.30 Unspecified hydronephrosis; I13.0 Hypertensive heart and chronic kidney disease with heart failure and stage 1 through stage 4 chronic kidney disease, or unspecified chronic kidney disease; I50.30 Unspecified diastolic (congestive) heart failure; E46 Unspecified protein-calorie malnutrition; E87.5 Hyperkalemia; R53.1 Weakness; N13.9 Obstructive and reflux uropathy, unspecified; D72.829 Elevated white blood cell count, unspecified; E86.0 Dehydration; N18.9 Chronic kidney disease, unspecified; N40.0 Benign prostatic hyperplasia without lower urinary tract symptoms; E83.52 Hypercalcemia; R65.20 Severe sepsis without septic shock; I35.1 Nonrheumatic aortic (valve) insufficiency; R33.9 Retention of urine, unspecified
CPT/HCPCS: 36415; 36600; 71010-TC; 74176-TC; 76775-TC; 80048; 80053; 81003; 81015; 82140; 82306; 82397; 82436; 82550; 82570; 82652; 82803; 83036; 83605; 83735; 83970; 84100; 84133; 84300; 84484; 85025; 85027; 85610; 85730; 86850; 86900; 86901; 87040; 87086; 87186; 87254; 87324; 87449; 87804; 93005; 93010; 93306-TC; 94010; 94760; 97116-GP; 97161-GP; 99285-25

== ENCOUNTER 2017-04-15 09:14 | Inpatient (IN) | payer BC ==
[2017-04-15 09:23] VITALS: BMI 21.2
--- NOTE | 2017-04-15 09:29 | PDOC ---
History of Present Illness - General Chief Complaint: Shortness of Breath Stated Complaint: SOB Time Seen by Provider: 04/15/17 09:18 History Source: Patient Exam Limitations: No Limitations - History of Present Illness Initial Comments: 72 yo M history BPH, HTN presents with SOB for past 3 days, worse since last night. He states that he was having difficulty sleeping due to shortness of breath, so he came to be evaluated. Denies recent illness, trauma, fever, cough. No prior similar symptoms. No prior lung history. He has history of DVT years ago, he is not currently on anticoagulation. No recent immobilization. Past History - Past Medical History Allergies/Adverse Reactions: Allergies Allergy/AdvReac Type Severity Reaction Status Date / Time No Known Allergies Allergy Verified 04/15/17 09:20 Home Medications: Ambulatory Orders Amlodipine Besylate [Norvasc -] 10 mg PO DAILY #0 tablet 11/16/13 Metoprolol Tartrate [Lopressor -] 25 mg PO BID #0 tab 11/16/13 Tamsulosin HCl [Flomax -] 0.4 mg PO HS #0 cap.er.24h 11/16/13 Anemia: No Asthma: No Cancer: No Cardiac Disorders: No CVA: No COPD: No CHF: Yes Dementia: No Diabetes: No GI Disorders: Yes (BPH) Disorders: No HTN: Yes Hypercholesterolemia: No Liver Disease: No Seizures: No Thyroid Disease: No - Surgical History Abdominal Surgery: No Appendectomy: No Cardiac Surgery: No Cholecystectomy: No Lung Surgery: No Neurologic Surgery: No Orthopedic Surgery: No - Psycho/Social/Smoking Cessation Hx Anxiety: No Suicidal Ideation: No Smoking History: Never smoked Have you smoked in the past 12 months: No Number of Cigarettes Smoked Daily: 0 Information on smoking cessation initiated: No Hx Alcohol Use: No Drug/Substance Use Hx: No Substance Use Type: None Hx Substance Use Treatment: No Review of Systems - Review of Systems Able to Perform ROS?: Yes Comments:: GENERAL/CONSTITUTIONAL: No fever or chills. No weakness. HEAD, EYES, EARS, NOSE AND THROAT: No change in vision. No ear pain or discharge. No sore throat. CARDIOVASCULAR: No chest pain. +Shortness of breath. RESPIRATORY: No cough, wheezing, or hemoptysis. GASTROINTESTINAL: No nausea, vomiting, diarrhea or constipation. GENITOURINARY: No dysuria, frequency, or change in urination. MUSCULOSKELETAL: No joint or muscle swelling or pain. No neck or back pain. SKIN: No rash NEUROLOGIC: No headache, vertigo, loss of consciousness, or change in strength/ sensation. ENDOCRINE: No increased thirst. No abnormal weight change. HEMATOLOGIC/LYMPHATIC: No anemia, easy bleeding. +History of blood clots. ALLERGIC/IMMUNOLOGIC: No hives or skin allergy. *Physical Exam - Vital Signs Last Vital Signs Temp Pulse Resp BP Pulse Ox 97.6 F 83 28 H 165/61 83 L 04/15/17 09:15 04/15/17 09:15 04/15/17 09:15 04/15/17 09:15 04/15/17 09:15 - Physical Exam Comments: GENERAL: Awake, alert, and fully oriented, in no acute distress. +Tachypnea. HEAD: No signs of trauma EYES: PERRLA, EOMI, sclera anicteric, conjunctiva clear ENT: Auricles normal inspection, hearing grossly normal, nares patent, oropharynx clear without exudates. Moist mucosa NECK: Normal ROM, supple, no lymphadenopathy, JVD, or masses LUNGS: Breath sounds equal, clear to auscultation bilaterally. No wheezes, and no crackles HEART: Regular rate and rhythm, normal S1 and S2, no murmurs, rubs or gallops ABDOMEN: Soft, nontender, normoactive bowel sounds. No guarding, no rebound. No masses EXTREMITIES: Normal range of motion, no edema. No clubbing or cyanosis. No cords , erythema, or tenderness NEUROLOGICAL: Cranial nerves II through XII grossly intact. Normal speech, normal gait SKIN: Warm, Dry, normal turgor, no rashes or lesions noted. Heart Score/ECG Review - ECG Impressions Comment:: EKG read 09:37- sinus rhythm 98 bpm, ED Treatment Course - LABORATORY CBC & Chemistry Diagram: 04/18/17 05:57 04/18/17 05:57 Medical Decision Making - Medical Decision Making 04/15/17 09:28 Pt initially hypoxic, improved with O2 via NRB. High suspicion for PE. Will obtain CTA r/o PE. Plan to admit to [facility], as patient is requiring NRB for O2. 04/15/17 12:58 Creatinine is 1.8, not able to do CTA to r/o PE. CXR shows signs of CHF with R- sided pleural effusion. Will give lasix to diurese. Will start heparin drip, as concern for PE is high. 04/15/17 13:17 ABG obtained as per my discussion with hospitalist. Results are pending, as it had to be sent to [facility]. *DC/Admit/Observation/Transfer Diagnosis at time of Disposition: Shortness of breath CHF (congestive heart failure) Qualifiers: Congestive heart failure type: unspecified congestive heart failure type Congestive heart failure chronicity: unspecified congestive heart failure chronicity Qualified Code(s): I50.9 - Heart failure, unspecified - Discharge Dispostion Condition at time of disposition: Guarded Admit: Yes - Referrals
[2017-04-15 09:55] LABS: BASOPHIL 2.6 % (0-2.0); EOSINOPHIL 0.1 % (0-4.5); MEAN CELL VOLUME 87.8 fl (80-96); MEAN PLT VOLUME 8.3 fl (7.5-11.1); NEUTROPHILS 88.3 % (42.8-82.8); PLATELET COUNT 317 K/MM3 (134-434); WHITE BLOOD COUNT 10.9 K/mm3 (4.0-10.8)
[2017-04-15 10:44] LABS: ALBUMIN 3.9 g/dl (3.5-5.0); ALK PHOS 74 U/L (32-92); ANION GAP 8 (8-16); BILIRUBIN,TOTAL 0.5 mg/dl (0.2-1.0); CALCIUM 9.7 mg/dl (8.4-10.2); CO2 20 mmol/L (22-28); CREATININE 1.8 mg/dl (0.6-1.3); GLUCOSE,RANDOM 103 mg/dl (74-106); SGOT/AST 26 U/L (10-42); SGPT/ALT 35 U/L (10-40); TOT PROT 6.9 g/dl (6.4-8.3)
[2017-04-15 10:45] LABS: INR 1.06 (0.82-1.09); PROTHROMBIN TIME (PATIENT) 11.9 SEC (10.2-13.0)
[2017-04-15 11:35] LABS: TROPONIN I (DFP) 0.07 ng/ml (0.03-0.50)
[2017-04-15] MEDS ORDERED: FUROSEMIDE 40 MG/4 ML INJECTABLE VIAL IVPUSH ONE (12:50)
[2017-04-15] MEDS ORDERED: HEPARIN NA (PORCINE) 5,000 UNITS/ML 1ML VIAL IVPUSH PRN ×4 (12:50→23:24)
[2017-04-15] MEDS ORDERED: FUROSEMIDE 40 MG/4 ML INJECTABLE VIAL ONE (12:57)
[2017-04-15] MEDS ORDERED: HEPARIN NA (PORCINE) 5,000 UNITS/ML 1ML VIAL ONE (12:57)
[2017-04-15] MEDS ORDERED: HEPARIN NA (PORCINE) 5,000 UNITS/ML 1ML VIAL IVPUSH ONE (12:57)
[2017-04-15] MEDS ORDERED: HEPARIN INFUSION - 500 ML IVPB ONE (12:57)
[2017-04-15] MEDS: HEPARIN INFUSION - 500 ML IVPB SCH (13:08)
[2017-04-15 14:26] LABS: ARTERIAL BLOOD GAS BASE EXCESS -3.6 meq/l (-2-2); ARTERIAL BLOOD GAS HCO3 19.2 meq/L (22-26); ARTERIAL BLOOD GAS PO2 73.5 mmHg (70-100); ARTERIAL BLOOD GAS pH 7.43 (7.35-7.45); METHEMOGLOBIN 0.4 % (0.4-1.5)
[2017-04-15 14:27] LABS: ALLENS TEST POSITIVE; LPM/O2% 100; PT. ON O2? YES
[2017-04-15 14:28] LABS: TYPE OF O2 NRM
[2017-04-15 16:49] LABS: URINE APPEARANCE Clear; URINE BILIRUBIN Negative (NEGATIVE); URINE BLOOD Negative (NEGATIVE); URINE GLUCOSE (UA) Negative (NEGATIVE); URINE KETONE Negative (NEGATIVE); URINE LEUK ESTERASE Negative (NEGATIVE); URINE NITRITE Negative (NEGATIVE); URINE UROBILINOGEN 0.2 E.U/dl (0.2-1.0)
[2017-04-15 17:00] LABS: URINE COLOR YELLOW; URINE PROTEIN 2+ (NEGATIVE)
[2017-04-15 20:39] LABS: URINE RBC 0-2 /hpf (0-3)
[2017-04-15 20:48] LABS: URINE WBC 0-1 (3-5)
[2017-04-15 20:49] LABS: CALCIUM OXALATE CRYSTALS FEW /hpf (NONE SEEN)
--- NOTE | 2017-04-15 23:05 | HP ---
CHIEF COMPLAINT: , Lower extremity Weakness PCP: Dr. Yenny Choe HISTORY OF PRESENT ILLNESS: This is a 72 y/o male with a past medical history of Hypertension, BPH, DVT (no AC). Who presents to the ED with SOB, palpitations, non-productive cough, lower extremity weakness x 3 days. Patient reports increased Dyspnea on exertion, orthopnea over the last several days with difficulty maintaining his balance secondary to weakness. Patient reports taking his medications as prescribed. Patient denies fever, chills, dizziness, CP, AP, N/V/D, constipation, dysuria. ER course was notable for: (1) Spo2 83% RA (2) Chest Xray- Pulmonary Vascular Congestion, Pleural Effusions, CM (3) BNP 75,204 (4) ABG: PH 7.43 pco2 29.7, pO2 73.5, HCO3 19.2 Recent Travel: None PAST MEDICAL HISTORY: See HPI PAST SURGICAL HISTORY: Tonsillectomy Prostate Social History: Smoking: Never Alcohol: None Drugs: None Lives with family, independent Family History: Non-Contributory Allergies No Known Allergies Allergy (Verified 04/15/17 09:20) HOME MEDICATIONS: Home Medications Medication Instructions Recorded Amlodipine Besylate [Norvasc -] 10 mg PO DAILY #0 tablet 11/16/13 Metoprolol Tartrate [Lopressor -] 25 mg PO BID #0 tab 11/16/13 Tamsulosin HCl [Flomax -] 0.4 mg PO HS #0 cap.er.24h 11/16/13 REVIEW OF SYSTEMS CONSTITUTIONAL: generalized weakness Absent: fever, chills, diaphoresis, malaise, loss of appetite, weight change HEENT: Absent: rhinorrhea, nasal congestion, throat pain, throat swelling, difficulty swallowing, mouth swelling, ear pain, eye pain, visual changes CARDIOVASCULAR: Absent: chest pain, syncope, palpitations, irregular heart rate, lightheadedness , peripheral edema RESPIRATORY: shortness of breath, dyspnea with exertion, orthopnea, Absent: cough, wheezing, stridor, hemoptysis GASTROINTESTINAL: Absent: abdominal pain, abdominal distension, nausea, vomiting, diarrhea, constipation, melena, hematochezia GENITOURINARY: Absent: dysuria, frequency, urgency, hesitancy, hematuria, flank pain, genital pain MUSCULOSKELETAL: Absent: myalgia, arthralgia, joint swelling, back pain, neck pain SKIN: Absent: rash, itching, pallor HEMATOLOGIC/IMMUNOLOGIC: Absent: easy bleeding, easy bruising, lymphadenopathy, frequent infections ENDOCRINE: Absent: unexplained weight gain, unexplained weight loss, heat intolerance, cold intolerance NEUROLOGIC: unsteady gait Absent: headache, focal weakness or paresthesias, dizziness,seizure, mental status changes, bladder or bowel incontinence PSYCHIATRIC: Absent: anxiety, depression, suicidal or homicidal ideation, hallucinations. PHYSICAL EXAMINATION Vital Signs - 24 hr 04/15/17 04/15/17 04/15/17 09:15 09:17 12:00 Temperature 97.6 F 97.8 F 98.1 F Pulse Rate 83 101 H Pulse Rate [ 103 H Left Apical] Respiratory 28 H 26 H 24 Rate Blood Pressure 165/61 145/64 Blood Pressure 162/58 [Right Arm] O2 Sat by Pulse 83 L Oximetry (%) 04/15/17 04/15/17 16:00 19:20 Temperature Pulse Rate Pulse Rate [ 98 H 87 Left Apical] Respiratory 24 21 Rate Blood Pressure Blood Pressure 157/66 133/65 [Right Arm] O2 Sat by Pulse 98 98 Oximetry (%) GENERAL: Cachetic, awake, alert, and fully oriented, in no acute distress. HEAD: Normal with no signs of trauma. EYES: Pupils equal, round and reactive to light, extraocular movements intact, sclera anicteric, conjunctiva clear. No lid lag. EARS, NOSE, THROAT: Ears normal, nares patent, oropharynx clear without exudates. Dry mucous membranes. NECK: Normal range of motion, supple without lymphadenopathy, JVD, or masses. LUNGS: Diminished breath sounds bilaterally. No wheezes, and no crackles. No accessory muscle use. HEART: Irregular rate and rhythm, normal S1 and S2, +gallop without murmur, rub. ABDOMEN: Soft, nontender, not distended, normoactive bowel sounds, no guarding, no rebound, no masses. No hepatomegaly or splenomegaly. MUSCULOSKELETAL: Normal range of motion at all joints. No bony deformities or tenderness. No CVA tenderness. UPPER EXTREMITIES: 2+ pulses, warm, well-perfused. No cyanosis. No clubbing. No peripheral edema. LOWER EXTREMITIES: 2+ pulses, warm, well-perfused. No calf tenderness. +1 pitting LLE peripheral edema. NEUROLOGICAL: Cranial nerves II-XII intact. Normal speech. Gait not observed. PSYCHIATRIC: Cooperative. Good eye contact. Appropriate mood and affect. SKIN: Warm, dry, normal turgor, no rashes or lesions noted, normal capillary refill. Laboratory Results - last 24 hr 04/15/17 04/15/17 04/15/17 09:40 09:40 09:40 WBC 10.9 H D RBC 4.33 Hgb 12.6 D Hct 38.0 D MCV 87.8 MCHC 33.0 RDW 14.0 D Plt Count 317 D MPV 8.3 Neutrophils % 88.3 H Lymphocytes % 5.2 L D Monocytes % 3.8 D Eosinophils % 0.1 D Basophils % 2.6 H D INR 1.06 PTT (Actin FS) 31.0 Anticoagulation Therapy Puncture Site ABG pH ABG pCO2 at Pt Temp ABG pO2 at Pt Temp ABG HCO3 ABG O2 Sat (Measured) ABG O2 Content ABG Base Excess Dayo Test Carboxyhemoglobin Methemoglobin O2 Delivery Device Oxygen Flow Rate Vent Mode Vent Rate Mechanical Rate Pressure Support Vent Sodium 141 D Potassium 4.6 D Chloride 113 H D Carbon Dioxide 20 L D Anion Gap 8 BUN 35 H D Creatinine 1.8 H D Creat Clearance w eGFR Y Random Glucose 103 D Calcium 9.7 Total Bilirubin 0.5 D AST 26 D ALT 35 D Alkaline Phosphatase 74 Creatine Kinase Troponin I B-Natriuretic Peptide 17425.15 H Total Protein 6.9 Albumin 3.9 D Urine Color Urine Appearance Urine pH Ur Specific [place] Urine Protein Urine Glucose (UA) Urine Ketones Urine Blood Urine Nitrite Urine Bilirubin Urine Urobilinogen Ur Leukocyte Esterase Urine RBC Urine WBC Calcium Oxalate Crystal 04/15/17 04/15/17 04/15/17 09:40 14:20 15:16 WBC RBC Hgb Hct MCV MCHC RDW Plt Count MPV Neutrophils % Lymphocytes % Monocytes % Eosinophils % Basophils % INR PTT (Actin FS) Anticoagulation Therapy Y Puncture Site Md puncture ABG pH 7.43 ABG pCO2 at Pt Temp 29.7 L ABG pO2 at Pt Temp 73.5 ABG HCO3 19.2 L ABG O2 Sat (Measured) 95.0 ABG O2 Content 17.6 ABG Base Excess -3.6 L Dayo Test Positive Carboxyhemoglobin 2.0 Methemoglobin 0.4 O2 Delivery Device Nrm Oxygen Flow Rate 100 Vent Mode Y Vent Rate Y Mechanical Rate Y Pressure Support Vent Y Sodium Potassium Chloride Carbon Dioxide Anion Gap BUN Creatinine Creat Clearance w eGFR Random Glucose Calcium Total Bilirubin AST ALT Alkaline Phosphatase Creatine Kinase 113 Troponin I 0.07 D B-Natriuretic Peptide Total Protein Albumin Urine Color Yellow Urine Appearance Clear Urine pH 5.0 D Ur Specific [place] 1.015 Urine Protein 2+ H Urine Glucose (UA) Negative Urine Ketones Negative Urine Blood Negative Urine Nitrite Negative Urine Bilirubin Negative Urine Urobilinogen 0.2 e.u/dl Ur Leukocyte Esterase Negative Urine RBC 0-2 Urine WBC 0-1 Calcium Oxalate Crystal Few 04/15/17 19:05 WBC RBC Hgb Hct MCV MCHC RDW Plt Count MPV Neutrophils % Lymphocytes % Monocytes % Eosinophils % Basophils % INR PTT (Actin FS) 127.0 H D Anticoagulation Therapy Puncture Site ABG pH ABG pCO2 at Pt Temp ABG pO2 at Pt Temp ABG HCO3 ABG O2 Sat (Measured) ABG O2 Content ABG Base Excess Dayo Test Carboxyhemoglobin Methemoglobin O2 Delivery Device Oxygen Flow Rate Vent Mode Vent Rate Mechanical Rate Pressure Support Vent Sodium Potassium Chloride Carbon Dioxide Anion Gap BUN Creatinine Creat Clearance w eGFR Random Glucose Calcium Total Bilirubin AST ALT Alkaline Phosphatase Creatine Kinase Troponin I B-Natriuretic Peptide Total Protein Albumin Urine Color Urine Appearance Urine pH Ur Specific [place] Urine Protein Urine Glucose (UA) Urine Ketones Urine Blood Urine Nitrite Urine Bilirubin Urine Urobilinogen Ur Leukocyte Esterase Urine RBC Urine WBC Calcium Oxalate Crystal ASSESSMENT/PLAN: This is a 72 y/o male with a PMHx of: HTN, BPH, DVT (no AC). Who presents to the ED with SOB and lower leg weakness x 3 days. Admitted for Respiratory Failure, CHF Exacerbation for further evaluation of their emergent condition. 1. Cardiac: CHF Exacerbation - Acute on Chronic Diastolic Failure - Cardiac Monitoring - CXR- Pulm vascular congestion, CM, Pleural effusion - Appreciate Cardiology Consult- ED notified Dr. Hdez - Lasix given in ED - Strict INOs - Daily weight - Monitor CBC, BMP - Echo in am - Continue Lasix - Continue home meds Hypertension - Controlled - Monitor BP - Continue Norvasc, Lopressor with parameters - Monitor renal function - Consider Renal Us 2. Pulm: Respiratory Failure - r/o PE - Likely secondary to Acute on Chronic Diastolic HF - Unable to do CTA secondary to renal insufficiency - Patient started on Heparin Drip in ED - Series PTTs - Continue oxygen Therapy- NRB - ABG reviewed 3. BPH - Continue Flomax 4. FEN - Fluid Restriction - Replete lytes prn - Low Na Diet 5. DVT Prophylaxis - OOB - AC- Heparin Drip r/o PE/DVT Code Status: Full Code Dispo: Requires Inpatient Care Problem List - Problem (1) CHF (congestive heart failure) Code(s): I50.9 - HEART FAILURE, UNSPECIFIED Qualifiers: Congestive heart failure type: unspecified congestive heart failure type Congestive heart failure chronicity: unspecified congestive heart failure chronicity Qualified Code(s): I50.9 - Heart failure, unspecified (2) Shortness of breath Code(s): R06.02 - SHORTNESS OF BREATH (3) Acute renal failure Code(s): N17.9 - ACUTE KIDNEY FAILURE, UNSPECIFIED (4) HTN (hypertension) Code(s): I10 - ESSENTIAL (PRIMARY) HYPERTENSION (5) DVT prophylaxis Code(s): JHG5930 - Visit type - Emergency Visit Emergency Visit: Yes ED Registration Date: 04/15/17 Care time: The patient presented to the Emergency Department on the above date and was hospitalized for further evaluation of their emergent condition. - New Patient This patient is new to me today: Yes Date on this admission: 04/15/17 - Critical Care Critical Care patient: No
[2017-04-15] MEDS ORDERED: METOPROLOL TARTRATE 50 MG TABLET (FP) PO ONE (23:39)
[2017-04-16 08:04] LABS: ANION GAP 10 (8-16); CALCIUM 8.9 mg/dL (8.5-10.1); CHOLESTEROL 177 mg/dL (50-200); CO2 22 mmol/L (21-32); CREATININE 1.8 mg/dL (0.7-1.3); GLUCOSE,RANDOM 93 mg/dL (74-106); LDL CHOLESTEROL (ONLY SJRH) 106 mg/dL (5-100); PHOSPHOROUS 3.7 mg/dL (2.5-4.9)
[2017-04-16] MEDS: METOPROLOL TARTRATE 25 MG TABLET (FP) PO SCH ×2 (09:14→21:28)
[2017-04-16] MEDS: amLODIPine BESYLATE 10 MG TABLET (FP) PO SCH (09:14)
[2017-04-16] MEDS: FUROSEMIDE 40 MG/4 ML INJECTABLE VIAL IVPUSH SCH (09:14)
[2017-04-16] MEDS ORDERED: PNEUMOC 13-VAL CONJ-DIP CRM/PF 0.5 ML DISP.SYRIN IM ONE (10:00)
--- NOTE | 2017-04-16 10:37 | CONSULT ---
Consult Consult Specialty:: Cardiology Referred by:: Dr Ohara Reason for Consultation:: CHF - History of Present Illness History of Present Illness: 72 yo male wit hx of HTN, AI -< mod on last echo from 2013, no hx CHF, past DVT in 2008 -. doppler in 11/06 showed old thrombus and V/Q wa slow prob for PE , last seen in office in 04/07 for routine visit -. recommended echo and stress test (given abnl EKG and no stress test, in spite of prior recommendations) -. never done, admission in 317 wit b/l hydro and bacteremia, here with here with FISCHER and weakness for a few days. He noticed FISCHER while walking to the store and orthopnea. Also mild MISAEL, mostly on left. Denies CP, but had some palpitations with the FISCHER. No fevers, chills Past Medical History HTN for over 40 years, treated as of October of 2010 AI -> last echo in 2013 showed mod AI Echocardiography(11/14/13) ([facility]) Normal LV size, mild concentric LVH, EF 74% Apical anterior wall hypokinesis, apical lateral wall hypokinesis Grade 1 diastolic dysfunction Mild to moderate mitral valve leaflet thickening, mild MAC, trace to mild MR Mild TR, normal pulmonary pressures Mild aortic sclerosis, at least moderate AI (no full evaluation) Aortic root calcification Echo 12/30/16 -. nl LV size and function and mod-sev AI Abnl EKG -> suggestive of jacqueline-septal MN -> stress test recommended february times (since 2010), but patient never followed through (in spite of schdeduling test) Right deep vein thrombosis in 2008 Pneumonia in 2008 ? CVA/TIA about 12 ya RI in 10/2010 (Cr 1.7) Urinary retention on 11/13/13 -> severe b/l hydro -> again in 01/07 wit b/l hydro and Staph coag neg bacteremia and staph UTI LE venous USG on 11/12/13 -> neg for DVT. 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 fib Father at 72 of prostate cancer 2 sisters -> one found in 01/04 in her house -> ? cause - Past Medical History Cardio/Vascular: Yes: Aortic Insufficiency (mod on echo from 2013), HTN, Other ( abnormal EKG for years, suggestive of ant-septal Mi) Renal/: Yes: Renal Inusuff, BPH Musculoskeletal: Yes: Chronic low back pain - Alcohol/Substance Use Hx Alcohol Use: No - Smoking History Smoking history: Never smoked Have you smoked in the past 12 months: No Aproximately how many cigarettes per day: 0 - Social History Usual Living Arrangement: Alone Home Medications - Allergies Allergies/Adverse Reactions: Allergies Allergy/AdvReac Type Severity Reaction Status Date / Time No Known Allergies Allergy Verified 04/15/17 09:20 - Home Medications Home Medications: Ambulatory Orders Amlodipine Besylate [Norvasc -] 10 mg PO DAILY #0 tablet 11/16/13 Metoprolol Tartrate [Lopressor -] 25 mg PO BID #0 tab 11/16/13 Tamsulosin HCl [Flomax -] 0.4 mg PO HS #0 cap.er.24h 11/16/13 Family Disease History - Family Disease History Family History: Denies (premature CAD) Review of Systems - Review of Systems Constitutional: reports: No Symptoms Eyes: reports: No Symptoms HENT: reports: No Symptoms Neck: reports: No Symptoms Cardiovascular: reports: Edema, Palpitations, Shortness of Breath Respiratory: reports: Orthopnea, SOB, SOB on Exertion Genitourinary: reports: No Symptoms Musculoskeletal: reports: No Symptoms Neurological: reports: No Symptoms Endocrine: reports: No Symptoms Psychiatric: reports: No Symptoms Physical Exam Vital Signs: Vital Signs Temperature 97.4 F L 04/16/17 06:00 Pulse Rate 82 04/16/17 06:00 Respiratory Rate 22 04/16/17 06:00 Blood Pressure 138/67 04/16/17 06:00 O2 Sat by Pulse Oximetry (%) 98 04/15/17 23:27 Constitutional: Yes: Thin Eyes: Yes: Conjunctiva Clear HENT: Yes: Atraumatic Neck: Yes: Supple Cardiovascular: Yes: Regular Rate and Rhythm, Murmur (diastolic) Respiratory: Yes: Other (decr at bases). No: Rales, Rhonchi, Wheezes Gastrointestinal: Yes: Soft. No: Tenderness Edema: Yes (trace in lefrtankle/foot) Peripheral Pulses WNL: Yes Labs: CBC, BMP 06/24/17 07:19 Imaging - Results Chest X-ray: Report Reviewed, Image Reviewed EKG: Report Reviewed, Image Reviewed Assessment/Plan 72 yo male with the above history, here with FISCHER, orthopnea, mild edema -. found in CHF. He has a background of AI -. mod-sev on last echo from 01/07. No evidence of ACS He feels better with IV diuretics I doubt PE as the clinical picture is very suggestive of CHF Rec: Continue the IV lasix Consider LE venous dopplers, give the asymmetric edema Continue BB Follow CXR, labs Pt just had echo in 01/07 -. dont feel it needs to be repeated Will have to consider possibility of surgery for the AV, though pt not too enthused at the idea. Thanks! will follow
--- NOTE | 2017-04-16 14:31 | CON.PULM ---
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 Admitted via the ER due to SOB and some dry cough for 3 days. He reports minimal pedal edema, but has never had chronic issues with edema. No travel history or sick contacts. No fever or chills. No night sweats or hemoptysis. He does report a previous VTE but the details are vague. He is not on AC. CXR: Cardiomegaly / bilateral pleural effusions and vascular congestion - History Source History Provided By: Patient Limitations to Obtaining History: No Limitations - Past Medical History Cardio/Vascular: Yes: Aortic Insufficiency (mod on echo from 2013), HTN, Other ( abnormal EKG for years, suggestive of ant-septal Mi) Renal/: Yes: Renal Inusuff, BPH Musculoskeletal: Yes: Chronic low back pain - Alcohol/Substance Use Hx Alcohol Use: No - Smoking History Smoking history: Never smoked Have you smoked in the past 12 months: No Aproximately how many cigarettes per day: 0 - Social History Usual Living Arrangement: Alone Home Medications - Allergies Allergies/Adverse Reactions: Allergies Allergy/AdvReac Type Severity Reaction Status Date / Time No Known Allergies Allergy Verified 04/15/17 09:20 - Home Medications Home Medications: Ambulatory Orders Amlodipine Besylate [Norvasc -] 10 mg PO DAILY #0 tablet 11/16/13 Metoprolol Tartrate [Lopressor -] 25 mg PO BID #0 tab 11/16/13 Tamsulosin HCl [Flomax -] 0.4 mg PO HS #0 cap.er.24h 11/16/13 Review of Systems - Review of Systems Constitutional: reports: Weakness. denies: Chills, Fever, Lethargy, Malaise, Night Sweats, Unintentional Wgt. Loss Eyes: reports: No Symptoms HENT: reports: No Symptoms Neck: reports: No Symptoms Cardiovascular: reports: Chest Pain, Edema, Shortness of Breath. denies: Palpitations Respiratory: reports: SOB, SOB on Exertion. denies: Hemoptysis, Wheezing Gastrointestinal: reports: No Symptoms Genitourinary: reports: No Symptoms Musculoskeletal: reports: No Symptoms Integumentary: reports: No Symptoms Neurological: reports: No Symptoms Endocrine: reports: No Symptoms Hematology/Lymphatic: reports: No Symptoms Psychiatric: reports: No Symptoms Physical Exam Vital Sings: Vital Signs Temperature 97.4 F L 04/16/17 06:00 Pulse Rate 89 04/16/17 12:01 Respiratory Rate 22 04/16/17 09:00 Blood Pressure 138/67 04/16/17 06:00 O2 Sat by Pulse Oximetry (%) 91 L 04/16/17 12:01 Constitutional: Yes: No Distress, Thin Eyes: Yes: Conjunctiva Clear, EOM Intact HENT: Yes: Atraumatic, Normocephalic Neck: Yes: Supple, Trachea Midline Cardiovascular: Yes: Regular Rate and Rhythm, Murmur. No: Rub Respiratory: Yes: On Nasal O2, Rales. No: Accessory Muscle Use, Stridor, Tachypnea, Wheezes ...Inspection: Yes: WNL ...Clubbing: No Gastrointestinal: Yes: Normal Bowel Sounds, Soft Renal/: Yes: WNL Breast(s): Yes: WNL Musculoskeletal: Yes: WNL Extremities: Yes: WNL Edema: No Peripheral Pulses WNL: Yes Integumentary: Yes: WNL Neurological: Yes: WNL, Alert, Oriented ...Motor Strength: WNL Psychiatric: Yes: WNL, Alert, Oriented Labs: CBC, BMP 04/16/17 07:19 ABG Results ABG pH 7.43 (7.35-7.45) 04/15/17 14:20 ABG pCO2 at Pt Temp 29.7 mmHg (35-45) L 04/15/17 14:20 ABG pO2 at Pt Temp 73.5 mmHg (70-100) 04/15/17 14:20 ABG HCO3 19.2 meq/L (22-26) L 04/15/17 14:20 ABG O2 Sat (Measured) 95.0 % (90-98.9) 04/15/17 14:20 ABG O2 Content 17.6 % vol (15-22) 04/15/17 14:20 ABG Base Excess -3.6 meq/l (-2-2) L 04/15/17 14:20 Imaging - Results Chest X-ray: Report Reviewed, Image Reviewed Problem List - Problems (1) CHF (congestive heart failure) Code(s): I50.9 - HEART FAILURE, UNSPECIFIED Qualifiers: Congestive heart failure type: unspecified congestive heart failure type Congestive heart failure chronicity: unspecified congestive heart failure chronicity Qualified Code(s): I50.9 - Heart failure, unspecified (2) Shortness of breath Code(s): R06.02 - SHORTNESS OF BREATH (3) HTN (hypertension) Code(s): I10 - ESSENTIAL (PRIMARY) HYPERTENSION (4) Weakness Code(s): R53.1 - WEAKNESS Assessment/Plan PLAN: Noted IV Heparin started Ordered LE US (Previously had chronic disease) O2 as needed ECHO Monitor off ABX Due to renal function IV contrast cannot be given The patient had a V/Q scan in 2013. Due to abnormal CXR : V/Q would not be useful Will follow Thank you. Dr Solis
[2017-04-16] MEDS: HEPARIN INFUSION - 500 ML IVPB SCH (20:27)
--- NOTE | 2017-04-16 20:52 | PN ---
Physical Exam: SUBJECTIVE: Patient seen and examined at bedside. Denies chest pain. Denies SOB. Denies cough. Watching baseball game. OBJECTIVE: Vital Signs Period Temp Pulse Resp BP Sys/Martinez Pulse Ox Last 24 Hr 97.1 F-97.6 F 82-108 20-22 132-160/67-90 91-98 GENERAL: The patient is awake, alert, and fully oriented, in no acute distress. HEAD: Normal with no signs of trauma. EYES: PERRL, extraocular movements intact, sclera anicteric, conjunctiva clear. No ptosis. LUNGS: Breath sounds equal, clear to auscultation bilaterally, no wheezes, no crackles, no accessory muscle use. HEART: Regular rate and rhythm, S1, S2 without murmur, rub or gallop. ABDOMEN: Soft, nontender, nondistended, normoactive bowel sounds, no guarding, no rebound EXTREMITIES: 2+ pulses, warm, well-perfused, no edema. NEUROLOGICAL: Cranial nerves II through XII grossly intact. Normal speech, gait not observed. Laboratory Results - last 24 hr 04/16/17 04/16/17 04/16/17 07:19 07:19 09:34 PTT (Actin FS) 57.5 H D Sodium 143 Potassium 4.0 Chloride 111 H Carbon Dioxide 22 Anion Gap 10 BUN 36 H Creatinine 1.8 H Random Glucose 93 Hemoglobin A1c % 5.6 D Calcium 8.9 Phosphorus 3.7 D Magnesium 2.0 Triglycerides 85 Cholesterol 177 Total LDL Cholesterol 106 H HDL Cholesterol 68 H Active Medications Generic Name Dose Route Start Last Admin Trade Name Freq PRN Reason Stop Dose Admin Amlodipine Besylate 10 mg 04/16/17 10:00 04/16/17 09:14 Norvasc - PO 10 mg DAILY ELIO Administration Furosemide 40 mg 04/16/17 10:00 04/16/17 09:14 Lasix Injection - IVPUSH 40 mg DAILY ELIO Administration Heparin Sodium (Porcine) 1,000 unit 04/15/17 23:24 Heparin - IVPUSH PRN PRN Heparin Heparin Sodium (Porcine) 5,000 unit 04/15/17 23:24 Heparin - IVPUSH PRN PRN Heparin Heparin Sodium/Dextrose 500 mls @ 16 mls/hr 04/15/17 13:00 04/15/17 21:45 Heparin Infusion - IVPB 650 units/hr TITR ELIO Titration Protocol 800 UNITS/HR Metoprolol Tartrate 25 mg 04/16/17 10:00 04/16/17 09:14 Lopressor - PO 25 mg BID ELIO Administration Tamsulosin HCl 0.4 mg 04/16/17 22:00 Flomax - PO HS [facility] ASSESSMENT/PLAN 72 year-old male with a PMH of HTN, diastolic heart failure, recurrent UTIs, h/ o DVT (not on anticoagulation), BPH, CKD, and renal mass. Hypoxemia Hypoxia r/o pulmonary embolism h/o DVT --was hypoxic to 83%, ABG SaO2 73 on 100% FiO2; tachycardic, SOB on admission , and h/o DVT --high clinical suspicion for PE --however, CTA contraindicated due elevated Cr and VQ scan would not be helpful due to CXR findings --continue heparin drip --echo ordered --pulmonary following --O2 as needed r/o pneumonia --CXR cannot r/o infiltrates but afebrile, no elevation in WBC --observe off antibiotics Acute on chronic diastolic heart failure --congestion and pleural effusions on CXR --Lasix IV daily Hypertension --continue metoprolol, amlodipine BPH --continue Flomax Chronic renal failure --Cr 1.8, mildly above baseline ~ 1.6 --monitor closely on diuretics F/E/N Fluids: PO intake adequate Electrolytes: replete as indicated Nutrition: low sodium DVT prophylaxis: heparin drip Dispo: continues to require inpatient care. Full Code. Visit type - Emergency Visit Emergency Visit: Yes ED Registration Date: 04/15/17 Care time: The patient presented to the Emergency Department on the above date and was hospitalized for further evaluation of their emergent condition. - New Patient This patient is new to me today: Yes Date on this admission: 04/16/17 - Critical Care Critical Care patient: No
[2017-04-16] MEDS: TAMSULOSIN HCL 0.4 MG CAP.ER.24H (FP) PO SCH (21:28)
[2017-04-17 08:08] LABS: BASOPHIL 1.1 % (0-2.0); MCH 29.3 pg (25.7-33.7); MCHC 33.4 g/dl (32.0-35.9); MEAN CELL VOLUME 87.6 fl (80-96); NEUTROPHILS 73.4 % (42.8-82.8); PLATELET COUNT 202 K/MM3 (134-434); RDW 14.9 % (11.9-15.9); WHITE BLOOD COUNT 7.8 K/mm3 (4.0-10.0)
[2017-04-17 08:14] LABS: ALBUMIN 2.8 g/dl (3.4-5.0); ANION GAP 9 (8-16); CALCIUM 8.5 mg/dL (8.5-10.1); CO2 24 mmol/L (21-32); CREATININE 1.9 mg/dL (0.7-1.3); GLUCOSE,RANDOM 82 mg/dL (74-106); MAGNESIUM 1.9 mg/dL (1.8-2.4); SGOT/AST 16 U/L (15-37); SGPT/ALT 25 U/L (12-78)
[2017-04-17 08:18] LABS: ALK PHOS 69 U/L (45-117); BILIRUBIN,TOTAL 0.9 mg/dL (0.2-1.0); TOT PROT 5.6 g/dl (6.4-8.2)
[2017-04-17] MEDS: FUROSEMIDE 40 MG/4 ML INJECTABLE VIAL IVPUSH SCH (11:11)
[2017-04-17] MEDS: amLODIPine BESYLATE 10 MG TABLET (FP) PO SCH (11:11)
[2017-04-17] MEDS: METOPROLOL TARTRATE 25 MG TABLET (FP) PO SCH ×2 (11:11→21:57)
[2017-04-17] MEDS: HEPARIN INFUSION - 500 ML IVPB SCH ×2 (11:11→18:09)
--- NOTE | 2017-04-17 14:05 | PN ---
Physical Exam: SUBJECTIVE: Patient seen and examined. 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 OBJECTIVE: Vital Signs Period Temp Pulse Resp BP Sys/Martinez Pulse Ox Last 24 Hr 97.0 F-98.8 F 77-94 20-20 120-138/54-74 93-96 GENERAL: The patient is awake, alert, and fully oriented, in no acute distress. HEAD: Normal with no signs of trauma. EYES: PERRL, extraocular movements intact, sclera anicteric, conjunctiva clear. No ptosis. LUNGS: Breath sounds equal, clear to auscultation bilaterally, no wheezes, no crackles, no accessory muscle use. HEART: Regular rate and rhythm, S1, S2 without murmur, rub or gallop. ABDOMEN: Soft, nontender, nondistended, normoactive bowel sounds, no guarding, no rebound EXTREMITIES: 2+ pulses, warm, well-perfused, no edema. NEUROLOGICAL: Cranial nerves II through XII grossly intact. Normal speech, gait not observed. Laboratory Results - last 24 hr 04/17/17 04/17/17 04/17/17 05:35 05:35 05:35 WBC 7.8 RBC 3.96 L D Hgb 11.6 L D Hct 34.7 L D MCV 87.6 MCHC 33.4 RDW 14.9 Plt Count 202 MPV 9.0 D Neutrophils % 73.4 Lymphocytes % 11.5 D Monocytes % 8.0 Eosinophils % 6.0 H Basophils % 1.1 PTT (Actin FS) 42.6 H Sodium 140 Potassium 3.9 Chloride 107 Carbon Dioxide 24 Anion Gap 9 BUN 40 H Creatinine 1.9 H Creat Clearance w eGFR 35.22 Random Glucose 82 Calcium 8.5 Magnesium 1.9 Total Bilirubin 0.9 D AST 16 ALT 25 Alkaline Phosphatase 69 D Total Protein 5.6 L Albumin 2.8 L D Active Medications Generic Name Dose Route Start Last Admin Trade Name Freq PRN Reason Stop Dose Admin Amlodipine Besylate 10 mg 04/16/17 10:00 04/17/17 11:11 Norvasc - PO 10 mg DAILY ELIO Administration Furosemide 40 mg 04/16/17 10:00 04/17/17 11:11 Lasix Injection - IVPUSH 40 mg DAILY ELIO Administration Heparin Sodium (Porcine) 1,000 unit 04/15/17 23:24 04/17/17 11:12 Heparin - IVPUSH 1,000 unit PRN PRN Administration Heparin Heparin Sodium (Porcine) 5,000 unit 04/15/17 23:24 Heparin - IVPUSH PRN PRN Heparin Heparin Sodium/Dextrose 500 mls @ 16 mls/hr 04/15/17 13:00 04/17/17 11:11 Heparin Infusion - IVPB 15 mls/hr TITR ELIO Administration Protocol 800 UNITS/HR Metoprolol Tartrate 25 mg 04/16/17 10:00 04/17/17 11:11 Lopressor - PO 25 mg BID ELIO Administration Tamsulosin HCl 0.4 mg 04/16/17 22:00 04/16/17 21:28 Flomax - PO 0.4 mg HS ELIO Administration ASSESSMENT/PLAN 72 year-old male with a PMH of HTN, diastolic heart failure, CVA v. TIA (x 12 years) recurrent UTIs, h/o DVT (2008, not on anticoagulation), BPH, CKD, and renal mass. Hypoxemia Hypoxia r/o pulmonary embolism h/o DVT --satting 95% on 6L NC --high clinical suspicion for PE --however, CTA contraindicated due elevated Cr and VQ scan would not be helpful due to CXR findings --continue heparin drip --echo ordered --pulmonary following --O2 as needed r/o pneumonia --CXR cannot r/o infiltrates but afebrile, no elevation in WBC --observe off antibiotics Acute on chronic diastolic heart failure --12/31/16 Echo: moderate cLVH, EF normal, no RWMA but poor views; trace TR, mild TR, moderate to severe AI, no pericardial effusion --congestion and pleural effusions on CXR --Lasix IV daily CAD --EKG suggestive of jacqueline-septal ME --per cardioogy stress test recommended many times since 2010 but patient does not follow through Hypertension --continue metoprolol, amlodipine BPH --continue Flomax Chronic renal failure --Cr 1.9, mildly above baseline ~ 1.6 --monitor closely on diuretics F/E/N Fluids: PO intake adequate Electrolytes: replete as indicated Nutrition: low sodium DVT prophylaxis: heparin drip Dispo: continues to require inpatient care. Full Code. Visit type - Emergency Visit Emergency Visit: Yes ED Registration Date: 04/15/17 Care time: The patient presented to the Emergency Department on the above date and was hospitalized for further evaluation of their emergent condition. - New Patient This patient is new to me today: No - Critical Care Critical Care patient: No
--- NOTE | 2017-04-17 14:22 | PN ---
Progress Note, Physician History of Present Illness: FISCHER - Current Medication List Current Medications: Active Medications Amlodipine Besylate (Norvasc -) 10 mg PO DAILY [facility] Last Admin: 04/17/17 11:11 Dose: 10 mg Furosemide (Lasix Injection -) 40 mg IVPUSH DAILY [facility] Last Admin: 04/17/17 11:11 Dose: 40 mg Heparin Sodium (Porcine) (Heparin -) 1,000 unit IVPUSH PRN PRN PRN Reason: Heparin Last Admin: 04/17/17 11:12 Dose: 1,000 unit Heparin Sodium (Porcine) (Heparin -) 5,000 unit IVPUSH PRN PRN PRN Reason: Heparin Heparin Sodium/Dextrose (Heparin Infusion -) 500 mls @ 16 mls/hr IVPB TITR ELIO ; 800 UNITS/HR PRN Reason: Protocol Last Admin: 04/17/17 11:11 Dose: 15 mls/hr Metoprolol Tartrate (Lopressor -) 25 mg PO BID [facility] Last Admin: 04/17/17 11:11 Dose: 25 mg Tamsulosin HCl (Flomax -) 0.4 mg PO HS [facility] Last Admin: 04/16/17 21:28 Dose: 0.4 mg - Objective Vital Signs: Vital Signs Temperature 98 F 04/17/17 11:04 Pulse Rate 94 H 04/17/17 11:06 Respiratory Rate 20 04/17/17 11:04 Blood Pressure 120/58 04/17/17 11:04 O2 Sat by Pulse Oximetry (%) 95 04/17/17 11:06 Constitutional: Yes: Thin Eyes: Yes: Conjunctiva Clear HENT: Yes: Atraumatic Neck: Yes: Supple Cardiovascular: Yes: Regular Rate and Rhythm, Murmur (diastolic) Respiratory: No: Rales (few, scattered), Rhonchi, Wheezes Gastrointestinal: Yes: Normal Bowel Sounds, Soft Extremities: Yes: Other (warm) Edema: Yes (trivial in left ankle) Peripheral Pulses WNL: Yes Neurological: Yes: Alert, Oriented Psychiatric: Yes: Alert, Oriented Labs: CBC, BMP 04/17/17 05:35 04/17/17 05:35 INR, PTT INR 1.06 (0.82-1.09) 04/15/17 09:40 Assessment/Plan 72 yo male with the above history, here with FISCHER, orthopnea, mild edema -. found in CHF. He has a background of AI -. mod-sev on last echo from 01/07. No evidence of ACS He feels better with IV diuretics-. wt down to 99 (from 18 lbs) I doubt PE as the clinical picture is very suggestive of CHF MISAEL venous doppler neg for acute DVT (old chronic right_ Pulmonary following Rec: Continue the IV lasix Continue BB Follow CXR, labs Pt just had echo in 01/07 -. don't feel it needs to be repeated in terms of AI eval, but maybe to eval right heart Will have to consider possibility of surgery for the AV, though pt not too enthused at the idea. However, would favor discussing at a later date as outpt - . pt not good at following up -> only comes to office sporadically.
--- NOTE | 2017-04-17 15:56 | PN ---
Progress Note (short form) - Note Progress Note: Breathing feels a little better today. Less SOB. No CP> US : partial chronic thrombosis of the greater saphenous vein. Intake & Output 04/14/17 04/15/17 04/16/17 04/17/17 23:59 23:59 23:59 23:59 Intake Total 122.6 1007 306 Output Total 1800 1100 450 Balance -1677.4 -93 -144 Weight 128 lb 0.006 oz 96 lb 4 oz 99 lb Last Vital Signs Temp Pulse Resp BP Pulse Ox 97.3 F L 74 20 120/65 95 04/17/17 14:56 04/17/17 14:56 04/17/17 14:56 04/17/17 14:56 04/17/17 11:06 Active Medications Amlodipine Besylate (Norvasc -) 10 mg PO DAILY [facility] Last Admin: 04/17/17 11:11 Dose: 10 mg Furosemide (Lasix Injection -) 40 mg IVPUSH DAILY [facility] Last Admin: 04/17/17 11:11 Dose: 40 mg Heparin Sodium (Porcine) (Heparin -) 1,000 unit IVPUSH PRN PRN PRN Reason: Heparin Last Admin: 04/17/17 11:12 Dose: 1,000 unit Heparin Sodium (Porcine) (Heparin -) 5,000 unit IVPUSH PRN PRN PRN Reason: Heparin Heparin Sodium/Dextrose (Heparin Infusion -) 500 mls @ 16 mls/hr IVPB TITR ELIO ; 800 UNITS/HR PRN Reason: Protocol Last Admin: 04/17/17 11:11 Dose: 15 mls/hr Metoprolol Tartrate (Lopressor -) 25 mg PO BID [facility] Last Admin: 04/17/17 11:11 Dose: 25 mg Tamsulosin HCl (Flomax -) 0.4 mg PO HS [facility] Last Admin: 04/16/17 21:28 Dose: 0.4 mg Constitutional: Yes: No Distress, Thin Eyes: Yes: Conjunctiva Clear, EOM Intact HENT: Yes: Atraumatic, Normocephalic Neck: Yes: Supple, Trachea Midline Cardiovascular: Yes: Regular Rate and Rhythm, Murmur. No: Rub Respiratory: Yes: On Nasal O2, Rales. No: Accessory Muscle Use, Stridor, Tachypnea, Wheezes ...Inspection: Yes: WNL ...Clubbing: No Gastrointestinal: Yes: Normal Bowel Sounds, Soft Renal/: Yes: WNL Breast(s): Yes: WNL Musculoskeletal: Yes: WNL Extremities: Yes: WNL Edema: No Peripheral Pulses WNL: Yes Integumentary: Yes: WNL Neurological: Yes: WNL, Alert, Oriented ...Motor Strength: WNL Psychiatric: Yes: WNL, Alert, Oriented Labs: Laboratory Results - last 24 hr 04/17/17 04/17/17 04/17/17 05:35 05:35 05:35 WBC 7.8 RBC 3.96 L D Hgb 11.6 L D Hct 34.7 L D MCV 87.6 MCHC 33.4 RDW 14.9 Plt Count 202 MPV 9.0 D Neutrophils % 73.4 Lymphocytes % 11.5 D Monocytes % 8.0 Eosinophils % 6.0 H Basophils % 1.1 PTT (Actin FS) 42.6 H Sodium 140 Potassium 3.9 Chloride 107 Carbon Dioxide 24 Anion Gap 9 BUN 40 H Creatinine 1.9 H Creat Clearance w eGFR 35.22 Random Glucose 82 Calcium 8.5 Magnesium 1.9 Total Bilirubin 0.9 D AST 16 ALT 25 Alkaline Phosphatase 69 D Total Protein 5.6 L Albumin 2.8 L D Problem List - Problems (1) CHF (congestive heart failure) Code(s): I50.9 - HEART FAILURE, UNSPECIFIED Qualifiers: Congestive heart failure type: unspecified congestive heart failure type Congestive heart failure chronicity: unspecified congestive heart failure chronicity Qualified Code(s): I50.9 - Heart failure, unspecified (2) Shortness of breath Code(s): R06.02 - SHORTNESS OF BREATH (3) HTN (hypertension) Code(s): I10 - ESSENTIAL (PRIMARY) HYPERTENSION (4) Weakness Code(s): R53.1 - WEAKNESS Assessment/Plan (?) PE -> I do not have a strong clinical suspicion : Noted empiric IV Heparin O2 as needed ECHO Monitor off ABX Due to renal function IV contrast cannot be given The patient had a V/Q scan in 2013. Due to abnormal CXR : V/Q would not be useful Check CXR in AM Thank you. Dr Solis Problem List - Problems (1) CHF (congestive heart failure) Code(s): I50.9 - HEART FAILURE, UNSPECIFIED Qualifiers: Congestive heart failure type: unspecified congestive heart failure type Congestive heart failure chronicity: unspecified congestive heart failure chronicity Qualified Code(s): I50.9 - Heart failure, unspecified (2) Shortness of breath Code(s): R06.02 - SHORTNESS OF BREATH (3) HTN (hypertension) Code(s): I10 - ESSENTIAL (PRIMARY) HYPERTENSION (4) Weakness Code(s): R53.1 - WEAKNESS
--- NOTE | 2017-04-17 21:25 | EKG ---
Test Reason : Blood Pressure : / mmHG Vent. Rate : 098 BPM Atrial Rate : 098 BPM P-R Int : 218 ms QRS Dur : 126 ms QT Int : 382 ms P-R-T Axes : 107 058 136 degrees QTc Int : 487 ms SINUS RHYTHM WITH 1ST DEGREE A-V BLOCK WITH PREMATURE ATRIAL COMPLEXES NON-SPECIFIC INTRA-VENTRICULAR CONDUCTION BLOCK CANNOT RULE OUT SEPTAL INFARCT (CITED ON OR BEFORE 29-DEC-2016) ST ELEVATION, CONSIDER EARLY REPOLARIZATION, PERICARDITIS, OR INJURY T WAVE ABNORMALITY, CONSIDER LATERAL ISCHEMIA ABNORMAL ECG WHEN COMPARED WITH ECG OF 30-DEC-2016 05:05, MI INTERVAL HAS INCREASED QRS DURATION HAS INCREASED ST MORE ELEVATED IN ANTERIOR LEADS T WAVE INVERSION NO LONGER EVIDENT IN INFERIOR LEADS Confirmed by ELIESER ELLIOTT, LENA ([id number]) on 04/17/2017 9:25:01 PM Referred By: ALEKSANDR Confirmed By:LENA MON MD
--- NOTE | 2017-04-17 21:30 | EKG ---
Test Reason : Blood Pressure : / mmHG Vent. Rate : 082 BPM Atrial Rate : 082 BPM P-R Int : 204 ms QRS Dur : 116 ms QT Int : 412 ms P-R-T Axes : 038 023 172 degrees QTc Int : 481 ms NORMAL SINUS RHYTHM WITH 1ST DEGREE A-V BLOCK POSSIBLE LEFT ATRIAL ENLARGEMENT NON-SPECIFIC INTRA-VENTRICULAR CONDUCTION DELAY SEPTAL INFARCT (CITED ON OR BEFORE 29-DEC-2016) ST ELEVATION, CONSIDER EARLY REPOLARIZATION, PERICARDITIS, OR INJURY ABNORMAL ECG WHEN COMPARED WITH ECG OF 15-APR-2017 09:36, PREMATURE ATRIAL COMPLEXES ARE NO LONGER PRESENT Confirmed by LENA MON MD ([id number]) on 04/17/2017 9:29:56 PM Referred By: KELTON ZAPATA Confirmed By:LENA MON MD
[2017-04-17] MEDS: TAMSULOSIN HCL 0.4 MG CAP.ER.24H (FP) PO SCH (21:57)
[2017-04-18 07:50] LABS: BASOPHIL 1.2 % (0-2.0); EOSINOPHIL 8.4 % (0-4.5); MCH 29.3 pg (25.7-33.7); MCHC 33.4 g/dl (32.0-35.9); MEAN CELL VOLUME 87.9 fl (80-96); NEUTROPHILS 72.4 % (42.8-82.8); PLATELET COUNT 196 K/MM3 (134-434); RDW 14.8 % (11.9-15.9); WHITE BLOOD COUNT 6.6 K/mm3 (4.0-10.0)
[2017-04-18 08:29] LABS: ALBUMIN 2.8 g/dl (3.4-5.0); ANION GAP 11 (8-16); CALCIUM 8.8 mg/dL (8.5-10.1); CO2 23 mmol/L (21-32); GLUCOSE,RANDOM 86 mg/dL (74-106)
[2017-04-18 08:35] LABS: ALK PHOS 65 U/L (45-117); BILIRUBIN,TOTAL 0.7 mg/dL (0.2-1.0); CREATININE 1.7 mg/dL (0.7-1.3); SGOT/AST 15 U/L (15-37); SGPT/ALT 24 U/L (12-78); TOT PROT 5.5 g/dl (6.4-8.2)
[2017-04-18] MEDS: METOPROLOL TARTRATE 25 MG TABLET (FP) PO SCH (09:29)
[2017-04-18] MEDS: FUROSEMIDE 40 MG/4 ML INJECTABLE VIAL IVPUSH SCH (09:29)
[2017-04-18] MEDS: amLODIPine BESYLATE 10 MG TABLET (FP) PO SCH (09:30)
--- NOTE | 2017-04-18 10:56 | PN ---
Progress Note, Physician History of Present Illness: pulmonary alert,feeling better,less dyspneic,o2 sat 99% 0n 4lL - Current Medication List Current Medications: Active Medications Amlodipine Besylate (Norvasc -) 10 mg PO DAILY [facility] Last Admin: 04/18/17 09:30 Dose: 10 mg Furosemide (Lasix Injection -) 40 mg IVPUSH DAILY [facility] Last Admin: 04/18/17 09:29 Dose: 40 mg Heparin Sodium (Porcine) (Heparin -) 1,000 unit IVPUSH PRN PRN PRN Reason: Heparin Last Admin: 04/17/17 11:12 Dose: 1,000 unit Heparin Sodium (Porcine) (Heparin -) 5,000 unit IVPUSH PRN PRN PRN Reason: Heparin Heparin Sodium/Dextrose (Heparin Infusion -) 500 mls @ 16 mls/hr IVPB TITR ELIO ; 800 UNITS/HR PRN Reason: Protocol Last Admin: 04/17/17 18:09 Dose: 15 mls/hr Metoprolol Tartrate (Lopressor -) 25 mg PO BID [facility] Last Admin: 04/18/17 09:29 Dose: 25 mg Tamsulosin HCl (Flomax -) 0.4 mg PO HS [facility] Last Admin: 04/17/17 21:57 Dose: 0.4 mg - Objective Vital Signs: Vital Signs Temperature 98.5 F 04/18/17 06:00 Pulse Rate 71 04/18/17 06:00 Respiratory Rate 20 04/18/17 06:00 Blood Pressure 125/49 04/18/17 06:00 O2 Sat by Pulse Oximetry (%) 96 04/17/17 21:00 Constitutional: Yes: Well Nourished, Calm Eyes: Yes: WNL HENT: Yes: WNL Neck: Yes: WNL Cardiovascular: Yes: Regular Rate and Rhythm, S1, S2 Respiratory: Yes: Rales (bibasilar rales) Gastrointestinal: Yes: Normal Bowel Sounds, Soft Extremities: Yes: WNL Edema: No Labs: CBC, BMP 04/18/17 05:57 04/18/17 05:57 INR, PTT INR 1.06 (0.82-1.09) 04/15/17 09:40 - ....Imaging Chest X-ray: Report Reviewed, Image Reviewed (less congestion,small rob pleural effusions) Ultrasound: Report Reviewed, Image Reviewed (-DVT BOTH LOWER EXT) Assessment/Plan Problem List - Problems (1) CHF (congestive heart failure) Code(s): I50.9 - HEART FAILURE, UNSPECIFIED Qualifiers: Congestive heart failure type: unspecified congestive heart failure type Congestive heart failure chronicity: unspecified congestive heart failure chronicity Qualified Code(s): I50.9 - Heart failure, unspecified (2) Shortness of breath Code(s): R06.02 - SHORTNESS OF BREATH (3) HTN (hypertension) Code(s): I10 - ESSENTIAL (PRIMARY) HYPERTENSION (4) Weakness Code(s): R53.1 - WEAKNESS DOUBT PULMONARY EMBOLISM Assessment/Plan PLAN: O2 as needed lasix daily wts Echo pending DR DICKINSON
--- NOTE | 2017-04-18 16:15 | PN ---
Physical Exam: SUBJECTIVE: Patient seen and examined. Denies any discomfort or pain. Denies shortness of breath. Not oxygen dependent @ home. OBJECTIVE: Right lung noted to be diminished with crackles at the right base On 5 liters of nasal cannula PE vs. CHF Vital Signs Period Temp Pulse Resp BP Sys/Martinez Pulse Ox Last 24 Hr 97.5 F-98.5 F 71-90 18-20 122-143/49-74 88-97 GENERAL: The patient is awake, alert, and fully oriented, in no acute distress. HEAD: Normal with no signs of trauma. EYES: PERRL, extraocular movements intact, sclera anicteric, conjunctiva clear. No ptosis. LUNGS: No wheezes, right lung diminished with crackles at right lung base HEART: Regular rate and rhythm, S1, S2 without murmur, rub or gallop. ABDOMEN: Soft, nontender, nondistended, normoactive bowel sounds, no guarding, no rebound, no hepatosplenomegaly, no masses. EXTREMITIES: no edema. NEUROLOGICAL: Normal speech, gait not observed. PSYCH: Normal mood, normal affect. SKIN: Warm, dry, normal turgor, no rashes or lesions noted Laboratory Results - last 24 hr 04/17/17 04/18/17 04/18/17 16:00 05:57 05:57 WBC 6.6 RBC 3.93 L Hgb 11.5 L Hct 34.5 L MCV 87.9 MCHC 33.4 RDW 14.8 Plt Count 196 MPV 9.0 Neutrophils % 72.4 Lymphocytes % 9.7 Monocytes % 8.3 Eosinophils % 8.4 H Basophils % 1.2 PTT (Actin FS) 74.7 H D 49.8 H D Sodium Potassium Chloride Carbon Dioxide Anion Gap BUN Creatinine Creat Clearance w eGFR Random Glucose Calcium Magnesium Total Bilirubin AST ALT Alkaline Phosphatase Total Protein Albumin 04/18/17 05:57 WBC RBC Hgb Hct MCV MCHC RDW Plt Count MPV Neutrophils % Lymphocytes % Monocytes % Eosinophils % Basophils % PTT (Actin FS) Sodium 141 Potassium 4.0 Chloride 107 Carbon Dioxide 23 Anion Gap 11 BUN 40 H Creatinine 1.7 H Creat Clearance w eGFR 40.04 Random Glucose 86 Calcium 8.8 Magnesium 2.0 Total Bilirubin 0.7 D AST 15 ALT 24 Alkaline Phosphatase 65 Total Protein 5.5 L Albumin 2.8 L Active Medications Generic Name Dose Route Start Last Admin Trade Name Freq PRN Reason Stop Dose Admin Amlodipine Besylate 10 mg 04/16/17 10:00 04/18/17 09:30 Norvasc - PO 10 mg DAILY ELIO Administration Furosemide 40 mg 04/16/17 10:00 04/18/17 09:29 Lasix Injection - IVPUSH 40 mg DAILY ELIO Administration Heparin Sodium (Porcine) 1,000 unit 04/15/17 23:24 04/17/17 11:12 Heparin - IVPUSH 1,000 unit PRN PRN Administration Heparin Heparin Sodium (Porcine) 5,000 unit 04/15/17 23:24 Heparin - IVPUSH PRN PRN Heparin Heparin Sodium/Dextrose 500 mls @ 16 mls/hr 04/15/17 13:00 04/17/17 18:09 Heparin Infusion - IVPB 15 mls/hr TITR ELIO Administration Protocol 800 UNITS/HR Metoprolol Tartrate 25 mg 04/16/17 10:00 04/18/17 09:29 Lopressor - PO 25 mg BID ELIO Administration Tamsulosin HCl 0.4 mg 04/16/17 22:00 04/17/17 21:57 Flomax - PO 0.4 mg HS ELIO Administration ASSESSMENT/PLAN: patient is a 72 year old male with a significant past medical history of hypertension, diastolic heart failure, CVA v. TIA (x 12 years) recurrent UTIs, h/o DVT (2008, not on anticoagulation), BPH, CKD, and a renal mass. 04/17/2017: negative for DVT Pulmonary: Hypoxia r/o pulmonary embolism vs. CHF vs. Pneumonia Assessment/Plan: Oxygen sats on 4-5 liters @ 95%, no dyspnea on exam Unable to fully exclude PE, since patient's kidney function elevated and CTA is contraindicated On a heparin drip based on APTT Echo ordered/pending Chest xray pending read Pulmonary following Titrate oxygen as tolerated, but likely will need home oxygen WBC stable afebrile, monitor off antibiotics Cardiology: Acute on chronic diastolic heart failure Assessment/Plan: On Lasix daily congested right lung noted Echo pending CAD Assessment/Plan: EKG reviewed Hypertension Assessment/Plan:On metoprolol, amlodipine Monitor BP Renal: Chronic renal failure Assessment/Plan: Cr 1.7, baseline ~ 1.6 Monitor renal function daily F.E.N. Fluids: Po intake Electrolytes: monitor and replete Nutrition: Low sodicum DVT prophylaxis: heparin drip Dispo: continues to require inpatient care. Full Code. Visit type - Emergency Visit Emergency Visit: Yes ED Registration Date: 04/15/17 Care time: The patient presented to the Emergency Department on the above date and was hospitalized for further evaluation of their emergent condition. - New Patient This patient is new to me today: Yes Date on this admission: 04/18/17 - Critical Care Critical Care patient: No - Discharge Referral Referred to [facility] Med P.C.: No
--- NOTE | 2017-04-18 17:13 | PN ---
Progress Note, Physician History of Present Illness: Feels better, but still dependent on O2 - Current Medication List Current Medications: Active Medications Amlodipine Besylate (Norvasc -) 10 mg PO DAILY [facility] Last Admin: 04/18/17 09:30 Dose: 10 mg Furosemide (Lasix Injection -) 40 mg IVPUSH DAILY [facility] Last Admin: 04/18/17 09:29 Dose: 40 mg Heparin Sodium (Porcine) (Heparin -) 1,000 unit IVPUSH PRN PRN PRN Reason: Heparin Last Admin: 04/17/17 11:12 Dose: 1,000 unit Heparin Sodium (Porcine) (Heparin -) 5,000 unit IVPUSH PRN PRN PRN Reason: Heparin Heparin Sodium/Dextrose (Heparin Infusion -) 500 mls @ 16 mls/hr IVPB TITR ELIO ; 800 UNITS/HR PRN Reason: Protocol Last Admin: 04/17/17 18:09 Dose: 15 mls/hr Metoprolol Tartrate (Lopressor -) 25 mg PO BID [facility] Last Admin: 04/18/17 09:29 Dose: 25 mg Tamsulosin HCl (Flomax -) 0.4 mg PO HS [facility] Last Admin: 04/17/17 21:57 Dose: 0.4 mg - Objective Vital Signs: Vital Signs Temperature 97.5 F L 04/18/17 14:00 Pulse Rate 83 04/18/17 14:00 Respiratory Rate 20 04/18/17 14:00 Blood Pressure 129/67 04/18/17 14:00 O2 Sat by Pulse Oximetry (%) 88 L 04/18/17 12:00 Constitutional: Yes: No Distress, Thin Eyes: Yes: Conjunctiva Clear HENT: Yes: Atraumatic Neck: Yes: Supple Cardiovascular: Yes: Regular Rate and Rhythm, Murmur (diastolic) Respiratory: Yes: Other (decreased BA at bases). No: Rales, Rhonchi, Wheezes Gastrointestinal: Yes: Normal Bowel Sounds, Soft Edema: No Peripheral Pulses WNL: Yes Neurological: Yes: Alert, Oriented Psychiatric: Yes: Alert, Oriented Labs: CBC, BMP 04/18/17 05:57 04/18/17 05:57 INR, PTT INR 1.06 (0.82-1.09) 04/15/17 09:40 - ....Imaging Chest X-ray: Report Reviewed, Image Reviewed Other: Other (tele -> SR APCs Echo (04/18/17) -> Mod LVE wit mod-sec reduced EF , mild -mod RV dysfunction Smild BiAE Severe AI Mod-sev MR PASP 50 Mod PI) Assessment/Plan 72 yo male with the above history, here with FISCHER, orthopnea, mild edema -. found in CHF. He has a background of AI -. mod-sev on last echo from 01/07. No evidence of ACS He feels better with IV diuretics-. wt down to 99 (from 18 lbs) I doubt PE as the clinical picture is very suggestive of CHF MISAEL venous doppler neg for acute DVT (old chronic right_ Pulmonary following Still O)2 dependent and with remaining pleural effusions EF now his reduced and pt also with mod-sev MR -. again, I discussed surgical intervention with pt (he'll need 2 valves) , who is not ready to move forward. He wants to somewhat recover from this acute illness. Given his renal dysfunction, the fact that he will need a cath, I don't think its unreasonable to let his kidneys settle down after all the IV lasix, and send him for cath in a couple of weeks Rec: Continue the IV lasix Continue BB, but switch him to carvedilol -. start with 6.25 bid No CATHLEEN-I./ARB Follow CXR, labs Discuss d/c heparin with pulmonary -> doubt PE Plan for eventual surgical intervention as discussed above D/w IM
[2017-04-18] MEDS: HEPARIN INFUSION - 500 ML IVPB SCH ×2 (17:18→17:19)
[2017-04-18] MEDS: CARVEDILOL 6.25 MG TABLET (FP) PO SCH (22:18)
[2017-04-18] MEDS: TAMSULOSIN HCL 0.4 MG CAP.ER.24H (FP) PO SCH (22:18)
[2017-04-19 07:40] LABS: BASOPHIL 1.7 % (0-2.0); EOSINOPHIL 10.5 % (0-4.5); MCH 29.2 pg (25.7-33.7); MCHC 33.5 g/dl (32.0-35.9); MEAN CELL VOLUME 87.2 fl (80-96); MEAN PLT VOLUME 8.8 fl (7.5-11.1); NEUTROPHILS 64.3 % (42.8-82.8); PLATELET COUNT 201 K/MM3 (134-434); WHITE BLOOD COUNT 5.8 K/mm3 (4.0-10.0)
--- NOTE | 2017-04-19 08:09 | PN ---
Progress Note, Physician History of Present Illness: SOB improving. No chest pain. - Current Medication List Current Medications: Active Medications Amlodipine Besylate (Norvasc -) 10 mg PO DAILY [facility] Last Admin: 04/18/17 09:30 Dose: 10 mg Carvedilol (Coreg -) 6.25 mg PO BID [facility] Last Admin: 04/18/17 22:18 Dose: 6.25 mg Furosemide (Lasix Injection -) 40 mg IVPUSH DAILY [facility] Last Admin: 04/18/17 09:29 Dose: 40 mg Heparin Sodium (Porcine) (Heparin -) 1,000 unit IVPUSH PRN PRN PRN Reason: Heparin Last Admin: 04/17/17 11:12 Dose: 1,000 unit Heparin Sodium (Porcine) (Heparin -) 5,000 unit IVPUSH PRN PRN PRN Reason: Heparin Heparin Sodium/Dextrose (Heparin Infusion -) 500 mls @ 16 mls/hr IVPB TITR ELIO ; 800 UNITS/HR PRN Reason: Protocol Last Admin: 04/18/17 17:19 Dose: 15 mls/hr Tamsulosin HCl (Flomax -) 0.4 mg PO HS [facility] Last Admin: 04/18/17 22:18 Dose: 0.4 mg - Objective Vital Signs: Vital Signs Temperature 98.1 F 04/19/17 05:25 Pulse Rate 76 04/19/17 05:25 Respiratory Rate 20 04/19/17 05:25 Blood Pressure 128/60 04/19/17 05:25 O2 Sat by Pulse Oximetry (%) 98 04/18/17 21:00 Constitutional: Yes: No Distress Eyes: Yes: Conjunctiva Clear, EOM Intact HENT: Yes: Atraumatic, Normocephalic Cardiovascular: Yes: Regular Rate and Rhythm Respiratory: Yes: CTA Bilaterally Gastrointestinal: Yes: Normal Bowel Sounds, Soft. No: Tenderness, Rebound Edema: No Labs: INR, PTT INR 1.06 (0.82-1.09) 04/15/17 09:40 Assessment/Plan 72 yo male with new severe AR and mod-severe MR and cardiomyopathy with moderate to severely reduced LV systolic function 04/18/17 echo. Currently being treated for CHF due to valvular disease. Patient with run of non-sustained VT last evening. RECS: BMP pending today. Will continue lasix 40 mg IV daily for now. Monitor lytes and renal function with diuresis. Continue carvedilol 6.25 mg po bid Patient will need surgical intervention for his aortic and mitral valve disease , however, patient will have this done as outpatient as he is not ready to proceed with surgery at this time. Patient will need outpatient cardiac catheterization and eventual CT surgery consultation when he agrees to proceed with valve replacement surgery. Will follow. Please call with questions.
[2017-04-19 08:19] LABS: ALBUMIN 2.8 g/dl (3.4-5.0); ANION GAP 10 (8-16); BILIRUBIN,TOTAL 0.8 mg/dL (0.2-1.0); CALCIUM 8.7 mg/dL (8.5-10.1); CO2 25 mmol/L (21-32); CREATININE 1.7 mg/dL (0.7-1.3); GLUCOSE,RANDOM 86 mg/dL (74-106); SGOT/AST 15 U/L (15-37); SGPT/ALT 24 U/L (12-78); TOT PROT 5.6 g/dl (6.4-8.2)
[2017-04-19 08:20] LABS: ALK PHOS 64 U/L (45-117)
[2017-04-19] MEDS: HEPARIN INFUSION - 500 ML IVPB SCH (08:48)
[2017-04-19] MEDS: amLODIPine BESYLATE 10 MG TABLET (FP) PO SCH (10:30)
[2017-04-19] MEDS: CARVEDILOL 6.25 MG TABLET (FP) PO SCH ×2 (10:30→22:16)
[2017-04-19] MEDS: FUROSEMIDE 40 MG/4 ML INJECTABLE VIAL IVPUSH SCH (10:30)
--- NOTE | 2017-04-19 13:10 | PN ---
Physical Exam: SUBJECTIVE: Patient seen and examined. denies chest pain or shortness of breath OBJECTIVE: Patient with run of non-sustained VT last evening. he denies any chest pain, shortness of breath Bilateral lower lobes with diminished breath sounds +crackles of right lung base Tolerating 2.5 - 3 liters of nasal cannula, sats mid 90s PE vs. CHF Vital Signs Period Temp Pulse Resp BP Sys/Martinez Pulse Ox Last 24 Hr 97.5 F-99.2 F 66-89 18-20 122-129/50-67 98-98 GENERAL: The patient is awake, alert, and fully oriented, in no acute distress. HEAD: Normal with no signs of trauma. EYES: PERRL, extraocular movements intact, sclera anicteric, conjunctiva clear. No ptosis. LUNGS: No wheezes, right lung diminished with crackles at right lung base HEART: Regular rate and rhythm, S1, S2 without murmur, rub or gallop. ABDOMEN: Soft, nontender, nondistended, normoactive bowel sounds, no guarding, no rebound, no hepatosplenomegaly, no masses. EXTREMITIES: no edema. NEUROLOGICAL: Normal speech, gait not observed. PSYCH: Normal mood, normal affect. SKIN: Warm, dry, normal turgor, no rashes or lesions noted Laboratory Results - last 24 hr 04/19/17 04/19/17 04/19/17 05:30 05:30 05:30 WBC 5.8 RBC 3.79 L Hgb 11.1 L Hct 33.0 L MCV 87.2 MCHC 33.5 RDW 15.0 Plt Count 201 MPV 8.8 Neutrophils % 64.3 Lymphocytes % 14.6 D Monocytes % 8.9 Eosinophils % 10.5 H Basophils % 1.7 PTT (Actin FS) 56.9 H Sodium 139 Potassium 4.0 Chloride 104 Carbon Dioxide 25 Anion Gap 10 BUN 37 H Creatinine 1.7 H Creat Clearance w eGFR 40.04 Random Glucose 86 Calcium 8.7 Total Bilirubin 0.8 AST 15 ALT 24 Alkaline Phosphatase 64 Total Protein 5.6 L Albumin 2.8 L Active Medications Generic Name Dose Route Start Last Admin Trade Name Freq PRN Reason Stop Dose Admin Amlodipine Besylate 10 mg 04/16/17 10:00 04/19/17 10:30 Norvasc - PO 10 mg DAILY ELIO Administration Carvedilol 6.25 mg 04/18/17 22:00 04/19/17 10:30 Coreg - PO 6.25 mg BID ELIO Administration Furosemide 40 mg 04/16/17 10:00 04/19/17 10:30 Lasix Injection - IVPUSH 40 mg DAILY [facility]IO Administration Heparin Sodium (Porcine) 1,000 unit 04/15/17 23:24 04/17/17 11:12 Heparin - IVPUSH 1,000 unit PRN PRN Administration Heparin Heparin Sodium (Porcine) 5,000 unit 04/15/17 23:24 Heparin - IVPUSH PRN PRN Heparin Heparin Sodium/Dextrose 500 mls @ 16 mls/hr 04/15/17 13:00 04/19/17 08:48 Heparin Infusion - IVPB 15 mls/hr TITR ELIO Administration Protocol 800 UNITS/HR Tamsulosin HCl 0.4 mg 04/16/17 22:00 04/18/17 22:18 Flomax - PO 0.4 mg HS ELIO Administration ASSESSMENT/PLAN: Patient is a 72 year old male with a significant past medical history of hypertension, diastolic heart failure, CVA v. TIA (x 12 years) recurrent UTIs, h/o DVT (2008, not on anticoagulation), BPH, CKD, and a renal mass. He was admitted on 04/15/2017 with shortness of breath. Imagin04/17/2017: Vascular study: negative for DVT 04/18/2017: Chest xray: Bilateral pleural effusions 04/18/2017: Echo: in comparison to previous study of 12/30/16, valvular cardiomyopathy has progressed, LV mod dialated, RV systolic fx mod reduced. Severe aortic regurg. Pulmonary: Hypoxia r/o pulmonary embolism vs. CHF vs. Pneumonia Assessment/Plan: Oxygen sats on 4-5 liters @ 95%, no dyspnea on exam Unable to fully exclude pulmonary emboli; patient's kidney function elevated and CTA is contraindicated On a heparin drip Pulmonary following Titrate off oxygen as tolerated, but likely will need home oxygen WBC stable afebrile, monitor off antibiotics Cardiology: Acute on chronic diastolic heart failure Assessment/Plan: On Lasix 40mg daily congested right lung noted, now with bilateral pleural effusions Echo reviewed Patient with run of non-sustained VT last evening, remained asymptomatic Hypertension Assessment/Plan:On metoprolol, amlodipine Monitor BP Renal: Chronic renal failure Assessment/Plan: Cr stable at 1.7, baseline ~ 1.6 Monitor renal function daily F.E.N. Fluids: Po intake Electrolytes: monitor and replete Nutrition: Low sodium DVT prophylaxis: heparin drip Dispo: continues to require inpatient care. Full Code. Visit type - Emergency Visit Emergency Visit: Yes ED Registration Date: 04/15/17 Care time: The patient presented to the Emergency Department on the above date and was hospitalized for further evaluation of their emergent condition. - New Patient This patient is new to me today: No - Critical Care Critical Care patient: No - Discharge Referral Referred to [facility] Med P.C.: No
--- NOTE | 2017-04-19 14:30 | PN ---
Progress Note (short form) - Note Progress Note: PULMONARY States breathing better. No chest pain or palpitations. No cough or wheezing. Last Vital Signs Temp Pulse Resp BP Pulse Ox 98 F 66 20 124/66 98 04/19/17 10:29 04/19/17 10:29 04/19/17 10:29 04/19/17 10:29 04/19/17 09:00 Intake & Output 04/16/17 04/17/17 04/18/17 04/19/17 23:59 23:59 23:59 23:59 Intake Total 1007 810 390 Output Total 1100 1500 1600 Balance -37 -086 -5200 Weight 96 lb 4 oz 99 lb 99 lb 8 oz 97 lb 9.6 oz Gen: NAD at rest Heart: RRR Lung: left base rales Abd: soft, nontender Ext: no edema CBC, BMP 04/19/17 05:30 04/19/17 05:30 Active Medications Amlodipine Besylate (Norvasc -) 10 mg PO DAILY [facility] Last Admin: 04/19/17 10:30 Dose: 10 mg Carvedilol (Coreg -) 6.25 mg PO BID [facility] Last Admin: 04/19/17 10:30 Dose: 6.25 mg Furosemide (Lasix Injection -) 40 mg IVPUSH DAILY [facility] Last Admin: 04/19/17 10:30 Dose: 40 mg Heparin Sodium (Porcine) (Heparin -) 1,000 unit IVPUSH PRN PRN PRN Reason: Heparin Last Admin: 04/17/17 11:12 Dose: 1,000 unit Heparin Sodium (Porcine) (Heparin -) 5,000 unit IVPUSH PRN PRN PRN Reason: Heparin Heparin Sodium/Dextrose (Heparin Infusion -) 500 mls @ 16 mls/hr IVPB TITR ELIO ; 800 UNITS/HR PRN Reason: Protocol Last Admin: 04/19/17 08:48 Dose: 15 mls/hr Tamsulosin HCl (Flomax -) 0.4 mg PO HS [facility] Last Admin: 04/18/17 22:18 Dose: 0.4 mg A/P Acute on Chronic Systolic Heart Failure Mitral Regurgitation Aortic Regurgitation HTN h/o DVT - continue lasix - monitor urine output, creatinine - daily weights, I/Os - continue anticoagulation - O2 as needed - cardiac work up in progress
[2017-04-19] MEDS: TAMSULOSIN HCL 0.4 MG CAP.ER.24H (FP) PO SCH (22:16)
--- NOTE | 2017-04-20 06:20 | PN ---
Progress Note, Physician History of Present Illness: Denies chest pain and dyspnea improved. - Current Medication List Current Medications: Active Medications Amlodipine Besylate (Norvasc -) 10 mg PO DAILY [facility] Last Admin: 04/19/17 10:30 Dose: 10 mg Carvedilol (Coreg -) 6.25 mg PO BID [facility] Last Admin: 04/19/17 22:16 Dose: 6.25 mg Furosemide (Lasix -) 40 mg PO DAILY [facility] Heparin Sodium (Porcine) (Heparin -) 1,000 unit IVPUSH PRN PRN PRN Reason: Heparin Last Admin: 04/17/17 11:12 Dose: 1,000 unit Heparin Sodium (Porcine) (Heparin -) 5,000 unit IVPUSH PRN PRN PRN Reason: Heparin Tamsulosin HCl (Flomax -) 0.4 mg PO HS [facility] Last Admin: 04/19/17 22:16 Dose: 0.4 mg - Objective Vital Signs: Vital Signs Temperature 97.4 F L 04/20/17 02:00 Pulse Rate 64 04/20/17 05:11 Respiratory Rate 20 04/20/17 05:11 Blood Pressure 121/55 04/20/17 05:11 O2 Sat by Pulse Oximetry (%) 97 04/19/17 21:00 Constitutional: Yes: No Distress Eyes: Yes: Conjunctiva Clear, EOM Intact HENT: Yes: Atraumatic, Normocephalic Cardiovascular: Yes: Regular Rate and Rhythm. No: JVD Respiratory: Yes: CTA Bilaterally Gastrointestinal: Yes: Normal Bowel Sounds, Soft. No: Tenderness Edema: No Labs: CBC, BMP 04/19/17 05:30 04/19/17 05:30 INR, PTT INR 1.06 (0.82-1.09) 04/15/17 09:40 Assessment/Plan 72 yo male with new severe AR and mod-severe MR and cardiomyopathy with moderate to severely reduced LV systolic function 04/18/17 echo. Currently being treated for CHF due to valvular disease. Patient with run of non-sustained VT 04/18/17 evening. 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 RECS: Patient is clinically stable and may be discharged from cardiac standpoint. Discontinue heparin gtt. Patient with chronic thrombosis of greater saphenous vein and does not reguire acute anticoagulation. If patient will require further hospitalization for other reasons, may start patient on DVT prophylaxis while in-house. Continue furosemide 40 mg po daily and carvedilol 6.25 mg po bid Patient will need surgical intervention for his aortic and mitral valve disease , however, patient will have this done as outpatient as he is not ready to proceed with surgery at this time. Patient will need outpatient cardiac catheterization and eventual CT surgery consultation when he agrees to proceed with valve replacement surgery. Will see prn. Please call with questions.
[2017-04-20 08:45] LABS: ANION GAP 9 (8-16); CO2 28 mmol/L (21-32); CREATININE 1.8 mg/dL (0.7-1.3); GLUCOSE,RANDOM 74 mg/dL (74-106)
[2017-04-20 08:47] LABS: MCH 29.2 pg (25.7-33.7); MCHC 33.2 g/dl (32.0-35.9); MEAN CELL VOLUME 87.8 fl (80-96); MEAN PLT VOLUME 8.6 fl (7.5-11.1); PLATELET COUNT 208 K/MM3 (134-434); RDW 14.7 % (11.9-15.9); WHITE BLOOD COUNT 5.3 K/mm3 (4.0-10.0)
[2017-04-20] MEDS ORDERED: FUROSEMIDE 40 MG TABLET (FP) PO SCH (10:00)
[2017-04-20] MEDS: CARVEDILOL 6.25 MG TABLET (FP) PO SCH (10:34)
[2017-04-20] MEDS: amLODIPine BESYLATE 10 MG TABLET (FP) PO SCH (10:34)
--- NOTE | 2017-04-20 11:36 | PN ---
Progress Note (short form) - Note Progress Note: PULMONARY DENIES SOB VSS/AFEBRILE AMBULATING IN ROOM NOT WEARING O2 ANICTERIC DIMINISHED B/L BREATH SOUNDS S1S2 w ectopics BS+ SOFT NO EDEMA LABS/MEDS/NOTES/IMAGING REVIEWED A/P Acute on Chronic Systolic Heart Failure resolving Atrial fibrillation Mitral Regurgitation Aortic Regurgitation HTN h/o DVT - continue lasix - monitor urine output, creatinine - daily weights, I/Os - no further anticoagulation as per cardiology - O2 as needed Darlin SMITH MD
--- NOTE | 2017-04-20 15:54 | DS ---
Physical Exam: SUBJECTIVE: Patient seen and examined OBJECTIVE: Vital Signs Period Temp Pulse Resp BP Sys/Martinez Pulse Ox Last 24 Hr 97.4 F-98.3 F 62-117 18-20 117-132/50-57 92-97 PHYSICAL EXAM GENERAL: The patient is awake, alert, and fully oriented, in no acute distress. HEAD: Normal with no signs of trauma. EYES: PERRL, extraocular movements intact, sclera anicteric, conjunctiva clear. ENT: Ears normal, nares patent, oropharynx clear without exudates, moist mucous membranes. NECK: Trachea midline, full range of motion, supple. LUNGS: Breath sounds equal, clear to auscultation bilaterally, no wheezes, no crackles, no accessory muscle use. HEART: Regular rate and rhythm, S1, S2 without murmur, rub or gallop. ABDOMEN: Soft, nontender, nondistended, normoactive bowel sounds, no guarding, no rebound, no hepatosplenomegaly, no masses. EXTREMITIES: 2+ pulses, warm, well-perfused, no edema. NEUROLOGICAL: Cranial nerves II through XII grossly intact. Normal speech, gait not observed. PSYCH: Normal mood, normal affect. SKIN: Warm, dry, normal turgor, no rashes or lesions noted. LABS Laboratory Results - last 24 hr 04/20/17 04/20/17 04/20/17 06:02 06:02 06:02 WBC 5.3 RBC 3.92 L Hgb 11.4 L Hct 34.4 L MCV 87.8 MCHC 33.2 RDW 14.7 Plt Count 208 MPV 8.6 PTT (Actin FS) 39.5 H D Sodium 140 Potassium 4.4 Chloride 103 Carbon Dioxide 28 Anion Gap 9 BUN 39 H Creatinine 1.8 H Random Glucose 74 Calcium 9.0 HOSPITAL COURSE: Date of Admission:04/15/17 Date of Discharge: 04/20/17 Discharge Summary Reason For Visit: SOB Current Active Problems CHF (congestive heart failure) (Acute) Shortness of breath (Acute) Condition: Improved - Instructions Referrals: Cherie Choe MD [Primary Care Provider] - Disposition: HOME - Home Medications Comprehensive Discharge Medication List: Ambulatory Orders Amlodipine Besylate [Norvasc -] 10 mg PO DAILY #0 tablet 11/16/13 Metoprolol Tartrate [Lopressor -] 25 mg PO BID #0 tab 11/16/13 Tamsulosin HCl [Flomax -] 0.4 mg PO HS #0 cap.er.24h 11/16/13 - Discharge Referral Referred to [facility] Med P.C.: No
[2017-04-20 19:01] VITALS: BP 127/46; PULSE 55; TEMP 97
== END 2017-04-20 18:52 | disposition home or self-care (01) | DRG 291 ==
LOC: FER 09:14 → J4W 22:58 → FER 22:58 → J4W 23:21
PROVIDERS: ADMIT Internal Medicine; ATTEND Nurse Practitioner Acute Care
DX: I13.0 Hypertensive heart and chronic kidney disease with heart failure and stage 1 through stage 4 chronic kidney disease, or unspecified chronic kidney disease (principal); I50.33 Acute on chronic diastolic (congestive) heart failure; J96.01 Acute respiratory failure with hypoxia; I31.3 Pericardial effusion (noninflammatory); N17.9 Acute kidney failure, unspecified; I47.2 Ventricular tachycardia; N40.0 Benign prostatic hyperplasia without lower urinary tract symptoms; I48.91 Unspecified atrial fibrillation; I34.0 Nonrheumatic mitral (valve) insufficiency; I35.1 Nonrheumatic aortic (valve) insufficiency; N18.9 Chronic kidney disease, unspecified; I42.9 Cardiomyopathy, unspecified
CPT/HCPCS: 36415; 36600; 71010-TC; 71020-TC; 80048; 80053; 80061; 81003; 81015; 82375; 82550; 82803; 83036; 83050; 83721; 83735; 83880; 84100; 84484; 85025; 85027; 85610; 85730; 93005; 93010; 93306-TC; 93970-TC; 94761; 97116-GP; 97161-GP; 99284-25; J1644

== ENCOUNTER 2017-08-29 16:04 | Inpatient (IN) | payer BC, OTHER ==
--- NOTE | 2017-08-29 16:21 | PDOC ---
History of Present Illness - General History Source: Patient Exam Limitations: No Limitations - History of Present Illness Initial Comments: 08/29/17 16:41 72 y/o male with a past medical history of Hypertension, BPH, DVT and CHF who presents to the ED with SOB for few days. Patient states that over the past couple of days he has been experiencing cold-like symptoms such as sneezing and weakness. He states that he has been having trouble breathing. He notes that his legs have been giving out on him the past couple of days and over all they feel weak. He notes that his SOB is exacerbated with activity and at night. He notes that he sleeps with one pillow up right. He denies any fever or chills. He denies nausea, vomiting or diarrhea. He denies any chest pain or palpitations. <Nelly Alvarez - Last Filed: 08/29/17 18:00> - History of Present Illness Initial Comments: 08/29/17 16:29 CC 72 y/o male with a past medical history of Hypertension, BPH, DVT (no AC), CHF. Who presents to the ED with SOB, palpitations, non-productive cough, lower extremity weakness x 3 days. <Mirza Wheatley - Last Filed: 08/29/17 19:27> - General Chief Complaint: Shortness of Breath Stated Complaint: sob Time Seen by Provider: 08/29/17 16:21 Past History <Nelly Alvarez - Last Filed: 08/29/17 18:00> - Past Medical History Anemia: No Asthma: No Cancer: No Cardiac Disorders: No CVA: No COPD: No CHF: Yes DVT: Yes Dementia: No Diabetes: No GI Disorders: Yes (BPH) Disorders: No HTN: Yes Hypercholesterolemia: No Liver Disease: No Seizures: No Thyroid Disease: No - Surgical History Abdominal Surgery: No Appendectomy: No Cardiac Surgery: No Cholecystectomy: No Lung Surgery: No Neurologic Surgery: No Orthopedic Surgery: No - Suicide/Smoking/Psychosocial Hx Smoking History: Never smoked Have you smoked in the past 12 months: No Number of Cigarettes Smoked Daily: 0 Hx Alcohol Use: No Drug/Substance Use Hx: No Substance Use Type: None Hx Substance Use Treatment: No <Mirza Wheatley - Last Filed: 08/29/17 19:27> - Past Medical History Allergies/Adverse Reactions: Allergies Allergy/AdvReac Type Severity Reaction Status Date / Time No Known Allergies Allergy Verified 08/29/17 16:05 Home Medications: Ambulatory Orders Amlodipine Besylate [Norvasc -] 10 mg PO DAILY #0 tablet 11/16/13 Carvedilol [Coreg -] 6.25 mg PO BID #60 tablet 04/20/17 Furosemide [Lasix -] 40 mg PO DAILY #30 tablet 04/20/17 Review of Systems - Review of Systems Able to Perform ROS?: Yes Comments:: 08/29/17 16:41 A complete review of 10 out of 10 review of systems is taken and is negative apart from what is previously mentioned below and in the HPI. <Nelly Alvarez - Last Filed: 08/29/17 18:00> *Physical Exam - Vital Signs Last Vital Signs Temp Pulse Resp BP Pulse Ox 98 F 112 H 18 145/86 95 08/29/17 16:05 08/29/17 16:05 08/29/17 16:05 08/29/17 16:05 08/29/17 16:05 - Physical Exam Comments: 08/29/17 16:42 Vitals: Triage Vital signs reviewed General Appearance: in mild distress, thin, cachectic Head: Atraumatic Neck: Supple; No Nucal rigidity Chest Wall: Nontender Cardiac: (+)Systolic ejection murmur. Regular rate and rhythym, no rubs, no gallops Lungs: (+)Crackles at the bases bilaterally. good air movement bilaterally Abdomen: Soft, non distended, normal bowel sounds, non tender to palpation <Nelly Alvarez - Last Filed: 08/29/17 18:00> - Vital Signs Last Vital Signs Temp Pulse Resp BP Pulse Ox 98 F 112 H 18 145/86 95 08/29/17 16:05 08/29/17 16:05 08/29/17 16:05 08/29/17 16:05 08/29/17 16:05 <Mirza Wheatley - Last Filed: 08/29/17 19:27> Heart Score/ECG Review #1 08/29/17 16:46 EKG performed at 16:31 demonstrates rate of 108, rhythm of sinus tachycardia, septal infact, age undetermined, no ST elevations <Nelly Alvarez - Last Filed: 08/29/17 18:00> ED Treatment Course - LABORATORY CBC & Chemistry Diagram: 08/29/17 16:24 08/29/17 16:24 <Nelly Alvarez - Last Filed: 08/29/17 18:00> - LABORATORY CBC & Chemistry Diagram: 08/29/17 16:24 08/29/17 16:24 <Mirza Wheatley - Last Filed: 08/29/17 19:27> Medical Decision Making - Medical Decision Making 08/29/17 18:00 Patient didn't cachectic with several day history of shortness of breath on exertion we'll check labs EKG and reassess Reevaluation 6 PM labs notable for acute renal injury creatinine of 2.5 on physical exam given crackles at bases there may be a component of CHF exacerbation chest x-ray and BNP are pending Patient also noted to have a new hyperbilirubinemia and a slightly elevated INR not on anticoagulation per previous charts We'll order limited abdominal ultrasound admitted to medicine for further management. 08/29/17 19:25 Reevaluation 7 PM patient noted to be intravascularly depleted with evidence of extravascular congestion. Questionable infiltrate noted on chest x-ray blood cultures antibiotics ordered. We will hydrate very gingerly. Detectable troponin noted as well aspirin given. Likely demand ischemia but will trend troponins. Tachycardia resolving with gentle hydration. PT. stable for telemetry admisson <Mirza Wheatley - Last Filed: 08/29/17 19:27> *DC/Admit/Observation/Transfer - Attestations Scribe Attestion: 08/29/17 16:43 Documentation prepared by DONNA Lynch, acting as lpn medical assistant for Mirza Wheatley MD, MD/DO. <Nelly Alvarez - Last Filed: 08/29/17 18:00> - Discharge Dispostion Admit: Yes <Mirza Wheatley - Last Filed: 08/29/17 19:27> Diagnosis at time of Disposition: Shortness of breath, Hyperbilirubinemia Acute renal failure Qualifiers: Acute renal failure type: unspecified Qualified Code(s): N17.9 - Acute kidney failure, unspecified - Discharge Dispostion Condition at time of disposition: Stable
[2017-08-29 16:41] LABS: BASOPHIL 1.7 % (0-2.0); EOSINOPHIL 0.1 % (0-4.5); MCHC 32.5 g/dl (32.0-35.9); MEAN CELL VOLUME 89.3 fl (80-96); MEAN PLT VOLUME 10.4 fl (7.5-11.1); NEUTROPHILS 85.3 % (42.8-82.8); PLATELET COUNT 265 K/MM3 (134-434); RDW 17.1 % (11.9-15.9); WHITE BLOOD COUNT 11.8 K/mm3 (4.0-10.8)
[2017-08-29 16:59] LABS: INR 1.31 (0.82-1.09); PROTHROMBIN TIME (PATIENT) 14.6 SEC (10.2-13.0)
[2017-08-29 17:05] LABS: ALBUMIN 4.1 g/dl (3.5-5.0); ALK PHOS 94 U/L (32-92); ANION GAP 14 (8-16); BILIRUBIN,TOTAL 1.7 mg/dl (0.2-1.0); CALCIUM 9.2 mg/dl (8.4-10.2); CO2 18 mmol/L (22-28); CPK 232 IU/L (39-308); CREATININE 2.5 mg/dl (0.6-1.3); GLUCOSE,RANDOM 119 mg/dl (74-106); SGOT/AST 46 U/L (10-42); SGPT/ALT 60 U/L (10-40); TOT PROT 7.2 g/dl (6.4-8.3)
[2017-08-29 17:08] LABS: PH,URINE 5.5 (4.5-8); URINE APPEARANCE Clear; URINE BILIRUBIN Negative (NEGATIVE); URINE BLOOD Negative (NEGATIVE); URINE GLUCOSE (UA) Negative (NEGATIVE); URINE KETONE Negative (NEGATIVE); URINE LEUK ESTERASE Negative (NEGATIVE); URINE NITRITE Negative (NEGATIVE); URINE UROBILINOGEN 0.2 (0.2-1.0)
[2017-08-29 17:12] LABS: URINE COLOR YELLOW; URINE PROTEIN 2+ (NEGATIVE)
[2017-08-29 17:52] LABS: TROPONIN I (DFP) 0.22 ng/ml (0.03-0.50)
[2017-08-29] MEDS ORDERED: ASPIRIN 325 MG TABLET PO ONE (18:44)
[2017-08-29] MEDS ORDERED: POTASSIUM CHLORIDE 10 MEQ in SODIUM CHLORIDE 1,000 ML IVPB SCH (18:45)
[2017-08-29] MEDS ORDERED: ASPIRIN 325 MG TABLET ONE (19:08)
[2017-08-29] MEDS ORDERED: POTASSIUM CHLORIDE TABS 20 MEQ TABLET.ER (FP) PO ONE ×2 (19:19→19:22)
[2017-08-29] MEDS ORDERED: LEVOFLOXACIN 500 MG IVPB 100 ML IVPB ONE ×2 (19:24→19:39)
[2017-08-29 20:31] LABS: URINE RBC 0-3 /hpf (0-3); URINE WBC 0-3 (0-2)
[2017-08-29 20:32] LABS: URINE BACTERIA 1+ /hpf (NEGATIVE); URINE HYALINE CAST 2+ /lpf
[2017-08-29] MEDS ORDERED: FUROSEMIDE 40 MG/4 ML INJECTABLE VIAL IVPUSH ONE (20:45)
[2017-08-29 20:57] LABS: ARTERIAL BLD GAS O2 SATURATION 94.4 % (90-98.9); ARTERIAL BLOOD GAS BASE EXCESS -2.9 meq/l (-2-2); ARTERIAL BLOOD GAS HCO3 18.7 meq/L (22-26); ARTERIAL BLOOD GAS PO2 70.1 mmHg (70-100)
--- NOTE | 2017-08-29 21:50 | HP ---
CHIEF COMPLAINT: SOB x several days PCP: Daija; Cardiology: Astrid HISTORY OF PRESENT ILLNESS: This is a 72 year old male with a past medical history of CHF, HTN, HLD, PNA, CVA vs TIA, DVT, BPH, CKD presented to the ED with SOB for several days, worse with activity. Also reports B/L leg weakness. Upon exam pt reports feeling the same, no acute c/o pain. ER course was notable for: (1) Trop 0.22 (2) CXR c/w RLL PNA (3) US abd with bilat pl effusions Recent Travel: pt denies PAST MEDICAL HISTORY: CHF HTN HLD DVT 2008, s/p treatment CVA / TIA PNA BPH CKD PAST SURGICAL HISTORY: pt denies Social History: Smoking: pt denies Alcohol: pt denies Drugs: pt denies Family History: he is unclear about much of his family history mother , unk father , prostate CA sister age68, unk sister alive, no known medical problems Allergies No Known Allergies Allergy (Verified 08/29/17 16:05) HOME MEDICATIONS: 3 Medication Instructions Recorded Amlodipine Besylate [Norvasc -] 10 mg PO DAILY #0 tablet 11/16/13 Carvedilol [Coreg -] 6.25 mg PO BID #60 tablet 04/20/17 Furosemide [Lasix -] 40 mg PO DAILY #30 tablet 04/20/17 REVIEW OF SYSTEMS CONSTITUTIONAL: Absent: fever, chills, diaphoresis, generalized weakness, malaise, loss of appetite, weight change HEENT: Absent: rhinorrhea, nasal congestion, throat pain, throat swelling, difficulty swallowing, mouth swelling, ear pain, eye pain, visual changes CARDIOVASCULAR: Absent: chest pain, syncope, palpitations, irregular heart rate, lightheadedness , peripheral edema RESPIRATORY: Present: cough, shortness of breath, dyspnea with exertion, orthopnea Absent: wheezing, stridor, hemoptysis GASTROINTESTINAL: Absent: abdominal pain, abdominal distension, nausea, vomiting, diarrhea, constipation, melena, hematochezia GENITOURINARY: Absent: dysuria, frequency, urgency, hesitancy, hematuria, flank pain, genital pain MUSCULOSKELETAL: Absent: myalgia, arthralgia, joint swelling, back pain, neck pain SKIN: Absent: rash, itching, pallor HEMATOLOGIC/IMMUNOLOGIC: Absent: easy bleeding, easy bruising, lymphadenopathy, frequent infections ENDOCRINE: Absent: unexplained weight gain, unexplained weight loss, heat intolerance, cold intolerance NEUROLOGIC: Absent: headache, focal weakness or paresthesias, dizziness, unsteady gait, seizure, mental status changes, bladder or bowel incontinence PSYCHIATRIC: Absent: anxiety, depression, suicidal or homicidal ideation, hallucinations. PHYSICAL EXAMINATION Vital Signs - 24 hr 3 08/29/17 08/29/17 08/29/17 08/29/17 16:05 18:46 19:02 19:06 Temperature 98 F Pulse Rate 112 H 116 H Pulse Rate [ 120 H Right Radial] Respiratory 18 28 H Rate Blood Pressure 145/86 145/86 Blood Pressure 145/81 136/63 [Left Arm] O2 Sat by Pulse 95 96 94 L Oximetry (%) GENERAL: Awake, alert, and fully oriented, in no acute distress. + cachexic HEAD: Normal with no signs of trauma. EYES: Pupils equal, round and reactive to light, extraocular movements intact, sclera anicteric, conjunctiva clear. No lid lag. EARS, NOSE, THROAT: Ears normal, nares patent, oropharynx clear without exudates. Moist mucous membranes. NECK: Normal range of motion, supple without lymphadenopathy, JVD, or masses. LUNGS: Tachypnea noted. Bibasilar crackles, R>L. No wheezes. No accessory muscle use. HEART: Regular rate and rhythm, normal S1 and S2 + murmur, rub or gallop. ABDOMEN: Soft, nontender, not distended, normoactive bowel sounds, no guarding, no rebound, no masses. No hepatomegaly or splenomegaly. MUSCULOSKELETAL: Normal range of motion at all joints. No bony deformities or tenderness. No CVA tenderness. UPPER EXTREMITIES: 2+ pulses, warm, well-perfused. No cyanosis. No clubbing. No peripheral edema. LOWER EXTREMITIES: 2+ pulses, warm, well-perfused. No calf tenderness. No peripheral edema. NEUROLOGICAL: Cranial nerves II-XII intact. Normal speech. Normal gait. PSYCHIATRIC: Cooperative. Good eye contact. Appropriate mood and affect. SKIN: Warm, dry, normal turgor, no rashes or lesions noted, normal capillary refill. ECG Sinus tachycardia with PACs Vent rate 108, QTC 511 Septal infact, age undeterminedd Flattened T waves 1,2,3, aVF, aVL Prolonged QT Radiology Reports CXR RLL infiltrate, official read pending US/ABDOMEN US -LIMITED HISTORY PROVIDED: Elevated liver function tests. Real time examination of the abdomen demonstrates the following: Bilateral pleural effusions are identified. The gallbladder is normal in size and does contain multiple calculi. There is no evidence of intra or extrahepatic biliary duct dilatation. The liver is normal in size and texture with no intrahepatic masses seen. There is a calcification within the liver suspicious for prior granulomatous disease. The pancreas is normal in size and texture with no pancreatic masses identified. There is no evidence of hydronephrosis or acute abnormalities of the right kidney. The kidney is atrophic and somewhat echogenic in texture consistent with chronic medical renal disease. There is no evidence of AAA. The IVC is patent. IMPRESSION: 1. Bilateral pleural effusions. 2. Cholelithiasis. 3. Atrophic and echogenic right kidney. Please see above discussion. Reported By: Baljeet Knapp MD 08/29/17 1355 ASSESSMENT/PLAN: 72yM with PMH HTN, CHF, HLD, CVA, DVT, BPH, CKD, PNA presented to the ED with SOB. Pneumonia-Community Acquired - given levaquin in ED, but given QTC prolongation, may not be agent of choice for further tx - ID consult ordered - oxygen PRN, as per ED staff, desats with activity. CHF, acute on chronic biventricular systolic CHF - echo done 03/2017, LVSF mod - severely reduced, RVSF mild-mod reduced, LA, RA mildly dilated, mod-severe mitral regurg, severe aortic regurg, mild sclerosis, mod PV regurg - change home po lasix to IV, monitor response - BNP still pending but dw lab, very elevated, needs to be diluted and rerun again - cardiology consult - pt states that he only takes his home coreg daily, will increase to BID FABIAN on CKD - likely due to CHF - will diuresis and monitor BUN/Cr - renal consult if not improving. hypokalemia - start potassium 20mg bid, monitor k HTN - cont home norvasc, coreg to be increased to BID DVT PPX - heparin 5000unit BID FEN - defer IVF in acute HF - BMP in am, k repleted - low sodium diet Dispo: Pt currently requires inpatient monitoring for management of his acute condition. Visit type - Emergency Visit Emergency Visit: Yes ED Registration Date: 08/29/17 Care time: The patient presented to the Emergency Department on the above date and was hospitalized for further evaluation of their emergent condition. - New Patient This patient is new to me today: Yes Date on this admission: 08/29/17 - Critical Care Critical Care patient: No
[2017-08-29 22:56] LABS: TROPONIN I (DFP) 0.21 ng/ml (0.03-0.50)
[2017-08-29] MEDS: CARVEDILOL 6.25 MG TABLET (FP) PO SCH (23:06)
[2017-08-29] MEDS: POTASSIUM CHLORIDE TABS 20 MEQ TABLET.ER (FP) PO SCH (23:06)
[2017-08-29] MEDS: HEPARIN NA (PORCINE) 5,000 UNITS/ML 1ML VIAL SQ SCH (23:06)
[2017-08-30 06:06] LABS: TROPONIN I 0.19 ng/ml (0.00-0.05)
--- NOTE | 2017-08-30 07:22 | PN ---
Physical Exam: SUBJECTIVE: Patient seen and examined, denies any shortness of breath, patient is noted to be tachypnec with accessory muscle use at bedside, patient reports feeling tired. OBJECTIVE: patient is a 72 y/o male with a past medical history of systolic/ valvuar congestive heart failure, hypertension, hyperlipidemia, DVT 2008, CVA / TIA, PNA, and BPH (s/p turp), CKD. Vital Signs Period Temp Pulse Resp BP Sys/Martinez Pulse Ox Last 24 Hr 97.6 F 81 19-32 110/47 96 GENERAL: The patient is awake, alert, and fully oriented, in no acute distress. HEAD: Normal with no signs of trauma. EYES: PERRL, extraocular movements intact, sclera anicteric, conjunctiva clear. No ptosis. ENT: Ears normal, nares patent, oropharynx clear without exudates, moist mucous membranes. NECK: Trachea midline, full range of motion, supple. LUNGS: Breath sounds equal, right lower lobe diminished with crackles to billateraly apexes, RR 32, no wheezes,+ accessory muscle use. HEART: Regular rate and rhythm, S1, S2, 4/6 systolic murmur, no rub or gallop. ABDOMEN: Soft, nontender, nondistended, normoactive bowel sounds, no guarding, no rebound, no hepatosplenomegaly, no masses. EXTREMITIES: 2+ pulses, warm, well-perfused, +1 edema bilateral lower extremity edema. NEUROLOGICAL: Cranial nerves II through XII grossly intact. Normal speech, gait not observed. PSYCH: Normal mood, normal affect. SKIN: Warm, dry, normal turgor, no rashes or lesions noted Laboratory Results - last 24 hr 08/29/17 08/30/17 08/30/17 22:26 05:00 05:00 Creatine Kinase 173 Cancelled 145 Creatine Kinase Index 2.9 CK-MB (CK-2) 5.1 H Troponin I 0.21 Cancelled 0.19 H CBC WBC 9.9 K/mm3 (4.0-10.8) 08/30/17 07:47 RBC 4.09 M/mm3 (4.00-5.60) 08/30/17 07:47 Hgb 12.1 GM/dl (11.7-16.9) D 08/30/17 07:47 Hct 36.5 % (35.4-49) 08/30/17 07:47 MCV 89.2 fl (80-96) 08/30/17 07:47 MCH 29.5 pg (25.7-33.7) 08/30/17 07:47 MCHC 33.1 g/dl (32.0-35.9) 08/30/17 07:47 RDW 16.7 % (11.9-15.9) H 08/30/17 07:47 Plt Count 221 K/MM3 (134-434) 08/30/17 07:47 MPV 10.1 fl (7.5-11.1) 08/30/17 07:47 Neutrophils % 88.6 % (42.8-82.8) H 08/30/17 07:47 Lymphocytes % 3.8 % (8-40) L 08/30/17 07:47 Monocytes % 7.1 % (3.8-10.2) 08/30/17 07:47 Eosinophils % 0.2 % (0-4.5) D 08/30/17 07:47 Basophils % 0.3 % (0-2.0) 08/30/17 07:47 CMP Sodium 138 mmol/L (136-145) 08/30/17 07:47 Potassium 4.4 mmol/L (3.5-5.1) D 08/30/17 07:47 Chloride 106 mmol/L (98-107) 08/30/17 07:47 Carbon Dioxide 20 mmol/L (22-28) L 08/30/17 07:47 Anion Gap 12 (8-16) 08/30/17 07:47 BUN 78 mg/dl (7-18) H 08/30/17 07:47 Creatinine 2.7 mg/dl (0.6-1.3) H 08/30/17 07:47 Creat Clearance w eGFR 23.48 (>60) 08/30/17 07:47 Random Glucose 149 mg/dl (74-106) H D 08/30/17 07:47 Calcium 8.9 mg/dl (8.4-10.2) 08/30/17 07:47 Phosphorus 4.5 mg/dl (2.5-4.6) 08/30/17 07:47 Magnesium 2.3 mg/dL (1.8-2.4) 08/30/17 07:47 Total Bilirubin 2.0 mg/dl (0.2-1.0) H 08/30/17 07:47 AST 45 U/L (10-42) H 08/30/17 07:47 ALT 63 U/L (10-40) H 08/30/17 07:47 Alkaline Phosphatase 81 U/L (32-92) 08/30/17 07:47 Creatine Kinase 145 IU/L (39-308) 08/30/17 05:00 Creatine Kinase Index 2.9 % (0.0-5.0) 08/29/17 22:26 CK-MB (CK-2) 5.1 ng/mL (0.3-4.0) H 08/29/17 22:26 Troponin I 0.19 ng/ml (0.00-0.05) H 08/30/17 05:00 B-Natriuretic Peptide 733796.1 pg/ml (5-125) H 08/29/17 16:24 Total Protein 6.0 g/dl (6.4-8.3) L 08/30/17 07:47 Albumin 3.3 g/dl (3.5-5.0) L 08/30/17 07:47 Laboratory Tests 08/30/17 10:40 ABG pH 7.52 H ABG pCO2 at Pt Temp 19.4 L* ABG pO2 at Pt Temp 134.0 H D ABG HCO3 15.8 L ABG O2 Sat (Measured) 99.5 H ABG Base Excess -4.3 L O2 Delivery Device N/c Oxygen Flow Rate 3.5 l Laboratory Tests 08/29/17 08/29/17 08/30/17 16:24 22:26 05:00 Troponin I 0.22 0.21 0.19 H Active Medications Generic Name Dose Route Start Last Admin Trade Name Freq PRN Reason Stop Dose Admin Amlodipine Besylate 10 mg 08/30/17 10:00 Norvasc - PO DAILY ELIO Carvedilol 6.25 mg 08/29/17 22:00 08/29/17 23:06 Coreg - PO 6.25 mg BID ELIO Administration Heparin Sodium (Porcine) 5,000 unit 08/29/17 22:00 08/29/17 23:06 Heparin - SQ 5,000 unit BID ELIO Administration Potassium Chloride 20 meq 08/29/17 22:00 08/29/17 23:06 K-Dur - PO 20 meq BID ELIO Administration IMAGING chest xray 08/29/17: enlarged heart, right lower lobe infilitrate ultrasound of abd: bilateral pleural effusion, cholelithasis, atropic echogenic right kidney chest xray 08/30/17: progressive bibasilar findings ASSESSMENT/PLAN: 1) pulm respiratory distress - stat abg on 2lnc -->respiratory alkalosis with metabolic acidosis-->bipap ordered, repeat chest xray notable for progressive bibaslilar findings increase lasix to 40mg bid, repeat ABG at 1400 - case discussed with Dr Pelayo (ICU attending) patient accepted to ICU Pneumonia-Community Acquired - given levaquin (08/29), start rocephin 1gm IV (08/29-) - patient afebrile, no leukocytosis noted, pending urine antigens and follow blood cultures - appreciate ID input, Dr Charles 2) card acute on chronic systolic/valvular CHF - echo (03/2017), LVSF mod - severely reduced, RVSF mild-mod reduced, LA, RA mildly dilated, mod-severe mitral regurg, severe aortic regurg, mild sclerosis, mod PV regurg - continue lasix 40mg iv bid - strict intake and output and daily weight, herrera Cather - Dr Resendiz (cardiology) consulted and following hypertension - continue coreg (with parameters) and norvasc elevated troponin - secondary to ischemic demand, ekg sinus tachycardia w/pac septal infarct ( unchanged from prior) troponin downtrending, continue trending 3) neph acute on chronic renal insufficiency - creatine 2.7 baseline 1.7, likely secondary to chf - close monitoring of bmp - appreciate nephrology input DVT PPX - heparin 5000unit BID FEN - defer IVF in acute HF - BMP in am, k repleted - low sodium diet Dispo: Pt requires transfer to [facility] for ICU level of care. Problem List - Problems (1) Respiratory distress Code(s): R06.00 - DYSPNEA, UNSPECIFIED Visit type - Emergency Visit Emergency Visit: Yes ED Registration Date: 08/29/17 Care time: The patient presented to the Emergency Department on the above date and was hospitalized for further evaluation of their emergent condition. - New Patient This patient is new to me today: Yes Date on this admission: 08/30/17 - Critical Care Critical Care patient: Yes Total Critical Care Time (in minutes): 45 Critical Care Statement: The care of this patient involved high complexity decision making to prevent further life threatening deterioration of the patient 's condition and/or to evaluate & treat vital organ system(s) failure or risk of failure. - Discharge Referral Referred to [facility] Med P.C.: No
[2017-08-30 08:01] LABS: BASOPHIL 0.3 % (0-2.0); EOSINOPHIL 0.2 % (0-4.5); MCH 29.5 pg (25.7-33.7); MCHC 33.1 g/dl (32.0-35.9); MEAN CELL VOLUME 89.2 fl (80-96); MEAN PLT VOLUME 10.1 fl (7.5-11.1); NEUTROPHILS 88.6 % (42.8-82.8); PLATELET COUNT 221 K/MM3 (134-434); RDW 16.7 % (11.9-15.9); WHITE BLOOD COUNT 9.9 K/mm3 (4.0-10.8)
[2017-08-30 08:33] LABS: ALBUMIN 3.3 g/dl (3.5-5.0); ALK PHOS 81 U/L (32-92); ANION GAP 12 (8-16); CALCIUM 8.9 mg/dl (8.4-10.2); CO2 20 mmol/L (22-28); CREATININE 2.7 mg/dl (0.6-1.3); GLUCOSE,RANDOM 149 mg/dl (74-106); MAGNESIUM 2.3 mg/dL (1.8-2.4); PHOSPHOROUS 4.5 mg/dl (2.5-4.6); SGOT/AST 45 U/L (10-42); SGPT/ALT 63 U/L (10-40)
[2017-08-30] MEDS: HEPARIN NA (PORCINE) 5,000 UNITS/ML 1ML VIAL SQ SCH ×2 (09:06→22:12)
[2017-08-30] MEDS: POTASSIUM CHLORIDE TABS 20 MEQ TABLET.ER (FP) PO SCH (09:07)
[2017-08-30] MEDS: ASPIRIN 81 MG CHEWABLE TABLETS PO SCH (09:07)
[2017-08-30] MEDS: CARVEDILOL 6.25 MG TABLET (FP) PO SCH (09:07)
[2017-08-30] MEDS ORDERED: amLODIPine BESYLATE 10 MG TABLET (FP) PO SCH (10:00)
[2017-08-30] MEDS ORDERED: FUROSEMIDE 40 MG/4 ML INJECTABLE VIAL ONE (10:06)
[2017-08-30] MEDS ORDERED: ALBUTEROL SO4 2.5/IPRATROPIUM 0.5 INH SOL 3 ML VIAL.NEB. NEB PRN (10:08)
[2017-08-30] MEDS ORDERED: FUROSEMIDE 40 MG/4 ML INJECTABLE VIAL IVPUSH ONE (10:30)
[2017-08-30] MEDS ORDERED: CEFTRIAXONE 1 G/50 ML PREMIX 50 ML IVPB SCH (11:15)
--- NOTE | 2017-08-30 11:35 | CONSULT ---
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 recommended echo and stress test (given abnl EKG and no stress test, in spite of prior recommendations) -> never done, admission in with b/l hydro and bacteremia, last admitted here with CHF in 04/09 -> never followed for eval for valve surgery, here with SOB/FISCHER for 3-4 days and weakness in legs. he denies CP, palpitations or dizziness. He denies MISAEL, but reports orthopnea and ? PND. he denies fevers, chills, diarrhea, cough. Past Medical History HTN for over 40 years, treated as of October of 2010 AI -> Echo in 2013 showed mod AI Echocardiography(11/14/13) ([facility]) Normal LV size, mild concentric LVH, EF 74% Apical anterior wall hypokinesis, apical lateral wall hypokinesis Grade 1 diastolic dysfunction Mild to moderate mitral valve leaflet thickening, mild MAC, trace to mild MR Mild TR, normal pulmonary pressures Mild aortic sclerosis, at least moderate AI (no full evaluation) Aortic root calcification Echo 12/30/16 -. nl LV size and function and mod-sev AI Echo (04/19/17) -> Mod LVE with mod-sev LV dysfunction, mild RV dysfunction, Mild BiAE, Mild AR dil, Severe AR, mod-sev MT, mild TR Abnl EKG -> suggestive of jacqueline-septal NV -> stress test recommended may times (since 2010), but patient never followed through (in spite of schdeduling test) CHF -> admitted here in 04/09 -> found with sev AI, mod-sev MR an dLV dysfunction then -> never followed for eval for valve surgery Right deep vein thrombosis in 2008 Pneumonia in 2008 ? CVA/TIA about 12 ya RI in 10/2010 (Cr 1.7) Urinary retention on 11/13/13 -> severe b/l hydro -> again in 01/07 with b/l hydro and Staph coag neg bacteremia and staph UTI LE venous USG on 11/12/13 -> neg for DVT. Chronic thrombus in the proximal portion of the right greater saphenous vein V/Q scan (11/13/13 - > Low probability for PE Family History Mother at 91 in 10/02, had had CVA/A. fib Father at 72 of prostate cancer 2 sisters -> one found in 01/04 in her house -> ? cause I - Past Medical History Cardio/Vascular: Yes: Aortic Insufficiency (mod on echo from 2013, severe on echo from 04/09), CHF, HTN, Mitral Insufficiency (mod-sev on echo from 04/09), Other (abnormal EKG for years, suggestive of ant-septal Mi) Renal/: Yes: Renal Inusuff, BPH Musculoskeletal: Yes: Chronic low back pain - Past Surgical History Past Surgical History: Yes: TURP (01/07), Tonsillectomy Additional Surgical History: Right Pyroplasty in 1983 (was urinating blood) - Alcohol/Substance Use Hx Alcohol Use: No - Smoking History Smoking history: Never smoked Have you smoked in the past 12 months: No Aproximately how many cigarettes per day: 0 - Social History Usual Living Arrangement: Alone Home Medications - Allergies Allergies/Adverse Reactions: Allergies Allergy/AdvReac Type Severity Reaction Status Date / Time No Known Allergies Allergy Verified 08/29/17 16:05 - Home Medications Home Medications: Ambulatory Orders Amlodipine Besylate [Norvasc -] 10 mg PO DAILY #0 tablet 11/16/13 Carvedilol [Coreg -] 6.25 mg PO BID #60 tablet 04/20/17 Furosemide [Lasix -] 40 mg PO DAILY #30 tablet 04/20/17 Family Disease History - Family Disease History Family History: Denies (premature CAD) Review of Systems - Review of Systems Constitutional: reports: Weakness Eyes: reports: No Symptoms HENT: reports: No Symptoms Neck: reports: No Symptoms Cardiovascular: reports: Shortness of Breath Respiratory: reports: Orthopnea, SOB, SOB on Exertion Gastrointestinal: reports: No Symptoms Genitourinary: reports: No Symptoms Musculoskeletal: reports: Muscle Weakness (of legs) Neurological: reports: No Symptoms Hematology/Lymphatic: reports: No Symptoms Physical Exam Vital Signs: Vital Signs Temperature 97.6 F 08/30/17 06:00 Pulse Rate 81 08/30/17 06:00 Respiratory Rate 19 08/30/17 06:00 Blood Pressure 110/47 08/30/17 06:00 O2 Sat by Pulse Oximetry (%) 99 08/30/17 10:35 Constitutional: Yes: Cachectic Eyes: Yes: Conjunctiva Clear HENT: Yes: Atraumatic Neck: Yes: Supple Cardiovascular: Yes: Regular Rate and Rhythm, Murmur (systolic and diastolic) Respiratory: No: Rales, Rhonchi, Wheezes Gastrointestinal: Yes: Normal Bowel Sounds, Soft. No: Tenderness Edema: No Peripheral Pulses WNL: Yes Neurological: Yes: Alert, Oriented Psychiatric: Yes: Alert, Oriented Labs: CBC, BMP 08/30/17 07:47 08/30/17 07:47 Imaging - Results Chest X-ray: Report Reviewed, Image Reviewed EKG: Report Reviewed, Image Reviewed (ST with APCs, IVCD) Assessment/Plan 72 yo male with the above history, here with SOB/FISCHER for 3-4 days. There is some evidence of fluid overload -> small effusions and he reports orthopnea (though no wt gain or MISAEL). However, the BNP (155,918) seems elevated out of proportion to the degree of CHF -> may be in part due to chronic RF. Patient has known severe AI, mod-sev MR and mod-sev LV dysfunction -> meeting criteria for valve surgery. However at the last visit here in 04/09, he wasn't committal, but was supposed to follow up to discuss further and never did There may be a RLL infiltrate to suggest a pna -> he had an elevated WBC on arrival, but no fevers and no other symptoms No evidence of ACS Rec: Continue IV lasix through today -> consider switching to PO in AM Cont coreg and norvasc No CATHLEEN-ARB given renal failure Cont ASA I again spoke to him about valve surgery and he seems open to the idea -> would however defer in the immediate given the possible infection -> follow on cultures. Abx per IM/ID Per IM Thanks! We'll follow! D/w Kaitlin winter
[2017-08-30 12:06] LABS: ARTERIAL BLOOD GAS pH 7.52 (7.35-7.45)
[2017-08-30 12:07] LABS: ARTERIAL BLD GAS O2 SATURATION 99.5 % (90-98.9); ARTERIAL BLOOD GAS BASE EXCESS -4.3 meq/l (-2-2); ARTERIAL BLOOD GAS HCO3 15.8 meq/L (22-26)
[2017-08-30 12:08] LABS: ART PUNCT SITE RIGHT RADIAL; LPM/O2% 3.5 L; PT. ON O2? YES; TYPE OF O2 N/C
--- NOTE | 2017-08-30 12:23 | EKG ---
Test Reason : Blood Pressure : / mmHG Vent. Rate : 108 BPM Atrial Rate : 108 BPM P-R Int : 168 ms QRS Dur : 124 ms QT Int : 382 ms P-R-T Axes : -14 041 129 degrees QTc Int : 511 ms SINUS TACHYCARDIA WITH PREMATURE ATRIAL COMPLEXES SEPTAL INFARCT (CITED ON OR BEFORE 29-DEC-2016) NON-SPECIFIC INTRA-VENTRICULAR CONDUCTION DELAY WHEN COMPARED WITH ECG OF 16-APR-2017 11:47, PREMATURE ATRIAL COMPLEXES ARE NOW PRESENT ID INTERVAL HAS DECREASED T WAVE INVERSION LESS EVIDENT IN LATERAL LEADS Confirmed by MD CONSTANCE, BOO ([id number]) on 08/30/2017 12:22:39 PM Referred By: OTRY Confirmed By:BOO NOLASCO MD
[2017-08-30] MEDS ORDERED: FUROSEMIDE 40 MG/4 ML INJECTABLE VIAL IVPUSH SCH (14:00)
[2017-08-30 15:47] LABS: TROPONIN I (DFP) 0.14 ng/ml (0.03-0.50)
--- NOTE | 2017-08-30 17:17 | PN ---
Progress Note (short form) - Note Progress Note: ID Consult dictated RLL pneumonia/possible sepsis secondary to pneumonia Decompensated CHF Acute on chronic renal failure Pending cultures empiric zosyn, adjusted for azotemia
[2017-08-30] MEDS ORDERED: ALBUTEROL SO4 0.083% IH SOL 2.5 MG/3 ML VIAL.NEB. NEB PRN (17:40)
[2017-08-30] MEDS: PIPERACILLIN/TAZOB 2.25 GM 2.25 GM in DEXTROSE 5%-WATER - 50 ML IVPB SCH (18:20)
--- NOTE | 2017-08-30 18:21 | CONSULT ---
Consultation: REQUESTING PROVIDER: CONSULT REQUEST: We have been asked to medically evaluate this patient for PNA, FABIAN on CKD, Resp distress. HISTORY OF PRESENT ILLNESS: Pt is a 72 M with PMH CHF, HTN, PNA, DVT who presented to ED with several days of SOB. Pt was admitted to [facility] for CAP and FABIAN on CKD. Pt developed resp distress and was transferred to ICU. Pt arrived with high pressure mask. O2 sat in high 90's, resp rate initially in 30s. Pt admitted to SOB. Pt denied CP, abd pain, nausea, vomiting, sick contacts, recent travel. REVIEW OF SYSTEMS: CONSTITUTIONAL: Absent: fever, chills, diaphoresis, generalized weakness, malaise, loss of appetite, weight change HEENT: Absent: rhinorrhea, nasal congestion, throat pain, throat swelling, difficulty swallowing, mouth swelling, ear pain, eye pain, visual changes CARDIOVASCULAR: Absent: chest pain, syncope, palpitations, irregular heart rate, lightheadedness , peripheral edema RESPIRATORY: shortness of breath Absent: cough, , dyspnea with exertion, orthopnea, wheezing, stridor, hemoptysis GASTROINTESTINAL: Absent: abdominal pain, abdominal distension, nausea, vomiting, diarrhea, constipation, melena, hematochezia GENITOURINARY: Absent: dysuria, frequency, urgency, hesitancy, hematuria, flank pain, genital pain MUSCULOSKELETAL: Absent: myalgia, arthralgia, joint swelling, back pain, neck pain SKIN: Absent: rash, itching, pallor HEMATOLOGIC/IMMUNOLOGIC: Absent: easy bleeding, easy bruising, lymphadenopathy, frequent infections ENDOCRINE: Absent: unexplained weight gain, unexplained weight loss, heat intolerance, cold intolerance NEUROLOGIC: Absent: headache, focal weakness or paresthesias, dizziness, unsteady gait, seizure, mental status changes, bladder or bowel incontinence PSYCHIATRIC: Absent: anxiety, depression, suicidal or homicidal ideation, hallucinations. PHYSICAL EXAMINATION Vital Signs - 24 hr 08/29/17 08/30/17 08/30/17 21:00 06:00 07:46 Temperature 97.6 F Pulse Rate 81 Respiratory 32 H 19 Rate Blood Pressure 110/47 O2 Sat by Pulse 96 98 Oximetry (%) 08/30/17 08/30/17 08/30/17 10:00 10:35 13:15 Temperature 98.0 F 98.0 F Pulse Rate 82 Respiratory 22 26 H Rate Blood Pressure 99/56 94/59 O2 Sat by Pulse 99 Oximetry (%) 08/30/17 08/30/17 08/30/17 14:00 14:04 16:05 Temperature 98.4 F Pulse Rate 69 82 Respiratory 20 26 H Rate Blood Pressure 93/47 96/48 O2 Sat by Pulse 100 96 Oximetry (%) GENERAL: Awake, alert, and fully oriented, in resp acute distress. Intercostal wasting. HEAD: Normal with no signs of trauma. EYES: Pupils equal, round and reactive to light, extraocular movements intact, sclera anicteric, conjunctiva clear. No lid lag. EARS, NOSE, THROAT: oropharynx clear without exudates. Moist mucous membranes. NECK: Normal range of motion, supple without lymphadenopathy, JVD, or masses. LUNGS: Air entry b/l. No wheezes, and RLB crackles. Accessory muscle use. Tachypnea HEART: Dist heart sounds. Regular rate and rhythm, normal S1 and S2 ABDOMEN: Soft, nontender, not distended, normoactive bowel sounds, no guarding, no rebound, no masses. No hepatomegaly or splenomegaly. Mccurdy in place MUSCULOSKELETAL: Normal range of motion at all joints. No bony deformities or tenderness. No CVA tenderness. UPPER EXTREMITIES: 2+ pulses, warm, well-perfused. No cyanosis. No clubbing. Cap refill <2 seconds. No peripheral edema. LOWER EXTREMITIES: 2+ pulses, warm, well-perfused. No calf tenderness. No peripheral edema. NEUROLOGICAL: Cranial nerves II-XII intact. Normal speech. Normal gait. PSYCHIATRIC: Cooperative. Good eye contact. Appropriate mood and affect. SKIN: Warm, dry, normal turgor, no rashes or lesions noted. Laboratory Results - last 24 hr 08/29/17 08/30/17 08/30/17 22:26 05:00 05:00 WBC RBC Hgb Hct MCV MCH MCHC RDW Plt Count MPV Neutrophils % Lymphocytes % Monocytes % Eosinophils % Basophils % PT Mixing Study Anticoagulation Therapy Puncture Site Patient Temperature ABG pH ABG pCO2 at Pt Temp ABG pO2 at Pt Temp ABG HCO3 ABG O2 Sat (Measured) ABG O2 Content ABG Base Excess Dayo Test O2 Delivery Device Oxygen Flow Rate Vent Mode Vent Rate Mechanical Rate PEEP Pressure Support Vent Sodium Potassium Chloride Carbon Dioxide Anion Gap BUN Creatinine Creat Clearance w eGFR Random Glucose Calcium Phosphorus Magnesium Total Bilirubin AST ALT Alkaline Phosphatase Creatine Kinase 173 Cancelled 145 Creatine Kinase Index 2.9 CK-MB (CK-2) 5.1 H Troponin I 0.21 Cancelled 0.19 H Total Protein Albumin 08/30/17 08/30/17 08/30/17 07:47 07:47 10:40 WBC 9.9 RBC 4.09 Hgb 12.1 D Hct 36.5 MCV 89.2 MCH 29.5 MCHC 33.1 RDW 16.7 H Plt Count 221 MPV 10.1 Neutrophils % 88.6 H Lymphocytes % 3.8 L Monocytes % 7.1 Eosinophils % 0.2 D Basophils % 0.3 PT Mixing Study Anticoagulation Therapy Puncture Site Right radial Patient Temperature ABG pH 7.52 H ABG pCO2 at Pt Temp 19.4 L* ABG pO2 at Pt Temp 134.0 H D ABG HCO3 15.8 L ABG O2 Sat (Measured) 99.5 H ABG O2 Content 20.9 ABG Base Excess -4.3 L Dayo Test Not applicable O2 Delivery Device N/c Oxygen Flow Rate 3.5 l Vent Mode Vent Rate Mechanical Rate PEEP Pressure Support Vent Sodium 138 Potassium 4.4 D Chloride 106 Carbon Dioxide 20 L Anion Gap 12 BUN 78 H Creatinine 2.7 H Creat Clearance w eGFR 23.48 Random Glucose 149 H D Calcium 8.9 Phosphorus 4.5 Magnesium 2.3 Total Bilirubin 2.0 H AST 45 H ALT 63 H Alkaline Phosphatase 81 Creatine Kinase Creatine Kinase Index CK-MB (CK-2) Troponin I Total Protein 6.0 L Albumin 3.3 L 08/30/17 08/30/17 14:12 14:30 WBC RBC Hgb Hct MCV MCH MCHC RDW Plt Count MPV Neutrophils % Lymphocytes % Monocytes % Eosinophils % Basophils % PT Mixing Study Cancelled Anticoagulation Therapy Cancelled Puncture Site Cancelled Patient Temperature Cancelled ABG pH Cancelled ABG pCO2 at Pt Temp Cancelled ABG pO2 at Pt Temp Cancelled ABG HCO3 Cancelled ABG O2 Sat (Measured) Cancelled ABG O2 Content Cancelled ABG Base Excess Cancelled Dayo Test Cancelled O2 Delivery Device Cancelled Oxygen Flow Rate Cancelled Vent Mode Cancelled Vent Rate Cancelled Mechanical Rate Cancelled PEEP Cancelled Pressure Support Vent Cancelled Sodium Potassium Chloride Carbon Dioxide Anion Gap BUN Creatinine Creat Clearance w eGFR Random Glucose Calcium Phosphorus Magnesium Total Bilirubin AST ALT Alkaline Phosphatase Creatine Kinase 104 Creatine Kinase Index CK-MB (CK-2) Troponin I 0.14 D Total Protein Albumin Active Medications Generic Name Dose Route Start Last Admin Trade Name Ronaldo PRN Reason Stop Dose Admin Albuterol/Ipratropium 1 amp 08/30/17 10:08 08/30/17 16:57 Duoneb - NEB 1 amp Q6H PRN Administration SHORTNESS OF BREATH Amlodipine Besylate 10 mg 08/30/17 10:00 08/30/17 09:07 Norvasc - PO 10 mg DAILY ELIO Administration Aspirin 81 mg 08/30/17 10:00 08/30/17 09:07 Asa - PO 81 mg DAILY ELIO Administration Carvedilol 6.25 mg 08/29/17 22:00 08/30/17 09:07 Coreg - PO 6.25 mg BID ELIO Administration Furosemide 40 mg 08/30/17 14:00 08/30/17 16:57 Lasix Injection - IVPUSH Not Given BID@0600,1400 ELIO Heparin Sodium (Porcine) 5,000 unit 08/29/17 22:00 08/30/17 09:06 Heparin - SQ 5,000 unit BID ELIO Administration Famotidine/Sodium Chloride 50 mls @ 100 mls/hr 08/30/17 22:00 Pepcid 20 Mg Premixed Ivpb - IVPB BID ELIO Piperacillin Sod/Tazobactam 50 mls @ 100 mls/hr 08/30/17 18:00 Sod 2.25 gm/ Dextrose IVPB Q8H-IV ELIO Protocol Potassium Chloride 20 meq 08/29/17 22:00 08/30/17 09:07 K-Dur - PO 20 meq BID ELIO Administration ASSESSMENT/PLAN: 72M w/ PMH CHF, HTN, PNA, DVT who presented to ED with several days of SOB. Pt was admitted to [facility] for CAP and FABIAN on CKD. Pt transferred to ICU for resp distress. #Acute respiratory distress -Pt w/ RR in 30s and accessory muscle use -Resp alkalosis and metab acidosis prior to transfer -ABG: ph 7.47, pCO2 13.6, pO2 203, HCO3 9.8 on nonrebreather -Will consider NIPPV if needed #CAP -WBC 11.8 -> 9.9 -CXR w/ R base infiltrate -pt got levaquin -on Zosyn -ID on board #CHF -echo done in 03/2017 LVSF mod - severely reduced, RVSF mild-mod reduced, LA, RA mildly dilated, mod-severe mitral regurg, severe aortic regurg, mild sclerosis, mod PV regurg -pt got lasix -cards on board #FABIAN possibly on CKD -baseline It Risk Advisor of 1.6 -It Risk Advisor 2.7 -cautious hydration in setting of CHF #Malnutrition -BMI 16 -hypoalbuminemic -intercostal wasting #hypokalemia -Resolved -K 3.3 -> 4.4 #FEN -not on fluids -lytes wnl -Na controlled diet Dispo: We will continue to follow the patient. Thank you for this consultative opportunity. Matt Abbott MD PGY-1 ICU Visit type - Emergency Visit Emergency Visit: No - New Patient This patient is new to me today: Yes Date on this admission: 08/31/17 - Critical Care Critical Care patient: No
[2017-08-30 18:43] LABS: ARTERIAL BLOOD GAS pH 7.47 (7.35-7.45)
[2017-08-30 18:45] LABS: ALLENS TEST POSITIVE; ART PUNCT SITE LEFT RADIAL; LPM/O2% 100%; PT. ON O2? YES
[2017-08-30 18:46] LABS: TYPE OF O2 RRB MASK
[2017-08-30 18:48] LABS: ARTERIAL BLD GAS O2 SATURATION 99.9 % (90-98.9); ARTERIAL BLOOD GAS BASE EXCESS -11.8 meq/l (-2-2)
[2017-08-30 18:49] LABS: ARTERIAL BLOOD GAS HCO3 9.8 meq/L (22-26)
[2017-08-30] MEDS: ALBUTEROL SO4 2.5/IPRATROPIUM 0.5 INH SOL 3 ML VIAL.NEB. NEB SCH ×2 (19:00→23:02)
[2017-08-30] MEDS ORDERED: DOPAMINE 400 MG/D5W - 250 ML IVPB ONE (19:09)
[2017-08-30] MEDS: DOPAMINE 400 MG/D5W - 250 ML IVPB SCH (19:14)
--- NOTE | 2017-08-30 20:36 | CONSULT ---
Consult Consult Specialty:: Pulmonary and critical care - History of Present Illness Chief Complaint: Shortness of breath History of Present Illness: This is a 72 year old man with a pmhx of HTN, BPH, DVT, CHF who presented to the ED with a 2 day history of URI prodrome (shortness of breath, cough, sneeze , general weakness-- primarily to bilateral LEs). He reports no nausea, vomiting , diarrhea, chest pain, palpitations, abdominal symptoms, urinary symptoms. In the ED he was found to have acute on chronic renal failure--> Cr 2.5 (baseline Cr ~1.6) and questionable RLL infiltrate with increased O2 requirement and shortness of breath. Now on Dopamine for BP support (was progressively more hypotensive). Last Coreg dose this morning. Received Lasix this afternoon. Appears dry. - Past Medical History Cardio/Vascular: Yes: Aortic Insufficiency (mod on echo from 2013, severe on echo from 04/09), CHF, HTN, Mitral Insufficiency (mod-sev on echo from 04/09), Other (abnormal EKG for years, suggestive of ant-septal Mi) Renal/: Yes: Renal Inusuff, BPH Musculoskeletal: Yes: Chronic low back pain - Past Surgical History Past Surgical History: Yes: TURP (01/07), Tonsillectomy Additional Surgical History: Right Pyroplasty in 1983 (was urinating blood) - Alcohol/Substance Use Hx Alcohol Use: No - Smoking History Smoking history: Never smoked Have you smoked in the past 12 months: No Aproximately how many cigarettes per day: 0 - Social History Usual Living Arrangement: Alone Home Medications - Allergies Allergies/Adverse Reactions: Allergies Allergy/AdvReac Type Severity Reaction Status Date / Time No Known Allergies Allergy Verified 08/29/17 16:05 - Home Medications Home Medications: Ambulatory Orders Amlodipine Besylate [Norvasc -] 10 mg PO DAILY #0 tablet 11/16/13 Carvedilol [Coreg -] 6.25 mg PO BID #60 tablet 04/20/17 Furosemide [Lasix -] 40 mg PO DAILY #30 tablet 04/20/17 Review of Systems - Review of Systems Constitutional: denies: No Symptoms Eyes: denies: No Symptoms HENT: denies: No Symptoms Neck: denies: No Symptoms Cardiovascular: denies: No Symptoms Respiratory: reports: SOB Gastrointestinal: denies: No Symptoms Genitourinary: denies: No Symptoms Breasts: denies: No Symptoms Reported Musculoskeletal: denies: No Symptoms Integumentary: denies: No Symptoms Neurological: denies: No Symptoms Endocrine: denies: No Symptoms Hematology/Lymphatic: denies: No Symptoms Psychiatric: denies: No Symptoms Physical Exam Vital Signs: Vital Signs Temperature 98.6 F 08/30/17 17:41 Pulse Rate 74 08/30/17 19:29 Respiratory Rate 28 H 08/30/17 19:29 Blood Pressure 94/48 08/30/17 19:29 O2 Sat by Pulse Oximetry (%) 100 08/30/17 18:40 Constitutional: Yes: No Distress, Calm, Cachectic, Thin Eyes: Yes: WNL HENT: Yes: WNL Neck: Yes: WNL Cardiovascular: Yes: Regular Rate and Rhythm Respiratory: Yes: CTA Bilaterally ...Rectal Exam: Yes: WNL Renal/: Yes: WNL Musculoskeletal: Yes: Muscle Weakness Extremities: Yes: WNL Edema: No Peripheral Pulses WNL: Yes Integumentary: Yes: WNL Neurological: Yes: WNL ...Motor Strength: WNL Psychiatric: Yes: WNL Labs: CBC, BMP 08/30/17 07:47 08/30/17 07:47 Imaging - Results Chest X-ray: Report Reviewed Assessment/Plan This is a 72 year old man with a pmhx of HTN, BPH, DVT, CHF who presented to the ED with a 2 day history of URI prodrome now with increased O2 requirement, shortness of breath, infiltrate on CXR all concerning for pneumonia vs. CHF exacerbation and maybe both. #Continue Vancomycin and Zosyn for pneumonia coverage, trend WBC and fever curve (may not mount these things as he is an older adult) #Continue Dopamine for goal MAP>65 #Please hold further anti-hypertensives #Continue ASA #Consider repeat TTE #Would hold further Lasix-->assess direction of Cr tomorrow, if its up I would hold off on giving more Lasix #Conservative fluid management given CHF but appears dry #Monitor and replete electrolytes #Ensure renal dosing 35' CC time CARLOS Marie
[2017-08-30 21:50] LABS: BASOPHIL 0.1 % (0-2.0); MCH 29.8 pg (25.7-33.7); MCHC 33.5 g/dl (32.0-35.9); MEAN CELL VOLUME 88.7 fl (80-96); MEAN PLT VOLUME 9.8 fl (7.5-11.1); NEUTROPHILS 88.2 % (42.8-82.8); PLATELET COUNT 201 K/MM3 (134-434); RDW 17.5 % (11.9-15.9); WHITE BLOOD COUNT 8.3 K/mm3 (4.0-10.0)
[2017-08-30] MEDS ORDERED: FAMOTIDINE 20 MG/50 ML IVPB 50 ML IVPB SCH (22:00)
[2017-08-30] MEDS: MUPIROCIN 2% TOPICAL OINTMENT FOR DECOLONIZATION NS SCH (22:13)
[2017-08-30] MEDS: CHLORHEXIDINE GLUCONATE 4% CLEANSER FOR DECOLONIZATION TP SCH (22:13)
[2017-08-30 22:23] LABS: ARTERIAL BLD GAS O2 SATURATION 99.3 % (90-98.9); ARTERIAL BLOOD GAS BASE EXCESS -7.6 meq/l (-2-2); ARTERIAL BLOOD GAS HCO3 16.2 meq/L (22-26); ARTERIAL BLOOD GAS pH 7.37 (7.35-7.45)
[2017-08-30 22:26] LABS: ALK PHOS 153 U/L (45-117); ANION GAP 15 (8-16); BILIRUBIN,TOTAL 1.7 mg/dL (0.2-1.0); CALCIUM 8.3 mg/dL (8.5-10.1); CO2 18 mmol/L (21-32); CREATININE 3.7 mg/dL (0.7-1.3); GLUCOSE,RANDOM 146 mg/dL (74-106); MAGNESIUM 2.7 mg/dL (1.8-2.4); PHOSPHOROUS 7.3 mg/dL (2.5-4.9); SGOT/AST 352 U/L (15-37); SGPT/ALT 264 U/L (12-78); TOT PROT 6.1 g/dl (6.4-8.2)
[2017-08-30 22:27] LABS: ALLENS TEST POSITIVE; ART PUNCT SITE RIGHT BRACHIAL; LPM/O2% 100%; PT. ON O2? YES; TYPE OF O2 NONREBREATHER
[2017-08-30] MEDS ORDERED: SODIUM POLYSTYRENE SULFONATE 15 GM/60 ML BOTTLE PO ONE (22:46)
[2017-08-31] MEDS: PIPERACILLIN/TAZOB 2.25 GM 2.25 GM in DEXTROSE 5%-WATER - 50 ML IVPB SCH ×3 (01:07→19:30)
[2017-08-31 07:28] LABS: ALK PHOS 148 U/L (45-117); ANION GAP 16 (8-16); BILIRUBIN,TOTAL 1.2 mg/dL (0.2-1.0); CALCIUM 8.1 mg/dL (8.5-10.1); CO2 18 mmol/L (21-32); CREATININE 3.7 mg/dL (0.7-1.3); GLUCOSE,RANDOM 142 mg/dL (74-106); MAGNESIUM 2.7 mg/dL (1.8-2.4); PHOSPHOROUS 7.5 mg/dL (2.5-4.9); SGOT/AST 346 U/L (15-37); SGPT/ALT 274 U/L (12-78); THYROID STIMULATING HORMONE 0.96 uIU/ml (0.358-3.74); TOT PROT 5.8 g/dl (6.4-8.2)
[2017-08-31 08:16] LABS: BASOPHIL 0.1 % (0-2.0); MCH 29.5 pg (25.7-33.7); MCHC 33.4 g/dl (32.0-35.9); MEAN CELL VOLUME 88.2 fl (80-96); MEAN PLT VOLUME 9.9 fl (7.5-11.1); NEUTROPHILS 88.5 % (42.8-82.8); PLATELET COUNT 204 K/MM3 (134-434); WHITE BLOOD COUNT 9.9 K/mm3 (4.0-10.0)
[2017-08-31 09:48] VITALS: BMI 16.4
--- NOTE | 2017-08-31 09:48 | CON.NEP ---
Consult Consult Specialty:: Nephrology Referred by:: RENATA Winter Reason for Consultation:: Acute Renal Failure - History of Present Illness Chief Complaint: LE weakness History of Present Illness: This is a 72 year old Gentleman with PMhx of CKD Stage 3 (baseline Cr 1.5-1.8), Hx of B/L hydronephrosis secondary to BPH now s/p TURP, Hypertension, CHF/ Valvuar disease, Hx of DVT who presents to the ED with complaints of SOB, LE weakness with viral prodrome and found to have FABIAN with Cr of 2.5-> 3.7. Pt denies any changes in urine output. No hematuria, flank pain, obstructive symptoms. Denies any NSAID use. No CATHLEEN/ARB on med list. No recent Abx use, rash. No N/V/D. No Abd pain. Denies any SOB at this time. S/p IV lasix. Started on Dobutamine gtt for low BP. No signs of uremia. Mccurdy in place with yellow urine. - History Source History Provided By: Patient Limitations to Obtaining History: No Limitations - Past Medical History Cardio/Vascular: Yes: Aortic Insufficiency (mod on echo from 2013, severe on echo from 04/09), CHF, HTN, Mitral Insufficiency (mod-sev on echo from 04/09), Other (abnormal EKG for years, suggestive of ant-septal Mi) Renal/: Yes: Renal Inusuff, BPH Musculoskeletal: Yes: Chronic low back pain - Past Surgical History Past Surgical History: Yes: TURP (01/07), Tonsillectomy Additional Surgical History: Right Pyroplasty in 1983 (was urinating blood) - Alcohol/Substance Use Hx Alcohol Use: No - Smoking History Smoking history: Never smoked Have you smoked in the past 12 months: No Aproximately how many cigarettes per day: 0 - Social History Usual Living Arrangement: Alone Home Medications - Allergies Allergies/Adverse Reactions: Allergies Allergy/AdvReac Type Severity Reaction Status Date / Time No Known Allergies Allergy Verified 08/29/17 16:05 - Home Medications Home Medications: Ambulatory Orders Amlodipine Besylate [Norvasc -] 10 mg PO DAILY #0 tablet 11/16/13 Carvedilol [Coreg -] 6.25 mg PO BID #60 tablet 04/20/17 Furosemide [Lasix -] 40 mg PO DAILY #30 tablet 04/20/17 Family Disease History - Family Disease History Family History: Unremarkable Review of Systems - Review of Systems Constitutional: reports: Weakness. denies: Chills, Fever, Loss of Appetite Eyes: reports: No Symptoms HENT: reports: No Symptoms Neck: reports: No Symptoms Cardiovascular: reports: Shortness of Breath. denies: Chest Pain, Edema, Palpitations Respiratory: reports: SOB. denies: Cough, Exercise Intolerance, Hemoptysis, Orthopnea, PND, Wheezing Gastrointestinal: reports: No Symptoms. denies: Abdominal Pain, Constipation, Diarrhea, Melena Genitourinary: reports: No Symptoms Musculoskeletal: reports: Muscle Weakness. denies: Joint Pain, Joint Swelling Neurological: reports: No Symptoms Psychiatric: reports: No Symptoms Nephrology Consult - Height Height: 5 ft 5 in - Weight Weight: 98 lb 9.6 oz - BMI Body Mass Index (BMI): 16.4 - Lab Results CBC,BMP: CBC, BMP 08/31/17 07:20 08/31/17 06:00 Anion Gap: Anion Gap Anion Gap 16 (8-16) 08/31/17 06:00 - Imaging Chest X-ray: Report Reviewed Ultrasound: Report Reviewed - Physical Examination Vital Signs: Vital Signs Temperature 97.2 F L 08/31/17 02:00 Pulse Rate 80 08/31/17 03:48 Respiratory Rate 26 H 08/31/17 03:48 Blood Pressure 104/59 08/31/17 03:48 O2 Sat by Pulse Oximetry (%) 96 08/30/17 23:05 Constitutional: Yes: No Distress, Calm Eyes: Yes: Conjunctiva Clear HENT: Yes: Atraumatic, Normocephalic Neck: Yes: Supple Cardiovascular: Yes: S1, S2. No: Regular Rate and Rhythm, JVD, Murmur, Rub Respiratory: Yes: Regular, Diminished, Rales Gastrointestinal: Yes: Normal Bowel Sounds, Soft, Distention. No: Tenderness Renal/: Yes: Mccurdy Present. No: Bladder Distention, CVA Tenderness - Left, CVA Tenderness - Right Edema: No Neurological: Yes: Alert, Oriented Problem List - Problems (1) Acute renal failure Code(s): N17.9 - ACUTE KIDNEY FAILURE, UNSPECIFIED Qualifiers: Acute renal failure type: unspecified Qualified Code(s): N17.9 - Acute kidney failure, unspecified (2) Respiratory distress Code(s): R06.00 - DYSPNEA, UNSPECIFIED (3) Shortness of breath Code(s): R06.02 - SHORTNESS OF BREATH (4) CHF (congestive heart failure) Code(s): I50.9 - HEART FAILURE, UNSPECIFIED Qualifiers: Congestive heart failure type: unspecified congestive heart failure type Congestive heart failure chronicity: unspecified congestive heart failure chronicity Qualified Code(s): I50.9 - Heart failure, unspecified (5) Sepsis Code(s): A41.9 - SEPSIS, UNSPECIFIED ORGANISM Assessment/Plan This is a 72 year old Gentleman with PMhx of CKD Stage 3 (baseline Cr 1.5-1.8), Hx of B/L hydronephrosis secondary to BPH now s/p TURP, Hypertension, CHF/ Valvuar disease, Hx of DVT who presents to the ED with complaints of SOB, LE weakness with viral prodrome and found to have FABIAN with Cr of 2.5-> 3.7. #Acute Renal Failure Etiology appears to be hemodynamic injury in setting of Sepsis with HF r/o ATN Check Urine studies for FeUrea and UCPR Check dedicated Renal US as left kidney was not seen on prior Abd US (r/o obstructive component) Keep MAP > 65 Give PRN Lasix as needed for SOB/Hypoxia related to pleural effusions Trend BMP Q8hrs if no clinical improvement in next 24 hours would strongly consider Renal replacement therapy to prevent worsening acidosis, fluid overload or hyperkalemia Renal Diet Dose all meds for CrCl less then 15 No acute need for dialysis at this time #Anion Gap Metabolic Acidosis Likely secondary to renal failure as lactic acidosis has improved #CHF Cardiology following PRN Lasix on Dopamine gtt No CATHLEEN/ARB given renal injury #Sepsis Emperic Abx F/u cultures ICU monitoring Keep MAP > 65 #Hyperphosphatemia secondary to renal failure Trend for now Low Phos diet #Proteinuria Check UPCR Thank you Will follow Flex Lo DO
--- NOTE | 2017-08-31 10:14 | PN ---
Progress Note, Physician History of Present Illness: Much more comfortable appearing this am Appears comfortable at rest on nasal cannula Denies cough or sputum production No c/o fever/ chills Afebrile WBC improved - Current Medication List Current Medications: Active Medications Albuterol Sulfate (Ventolin 0.083% Nebulizer Soln -) 1 amp NEB Q4H PRN PRN Reason: SHORT OF BREATH/WHEEZING Last Admin: 08/31/17 03:44 Dose: 1 amp Albuterol/Ipratropium (Duoneb -) 1 amp NEB QIDR [facility] Last Admin: 08/30/17 23:02 Dose: 1 amp Aspirin (Asa -) 81 mg PO DAILY [facility] Last Admin: 08/30/17 09:07 Dose: 81 mg Chlorhexidine Gluconate (Hibiclens For Decolonization -) 1 applic TP HS [facility] Last Admin: 08/30/17 22:13 Dose: 1 applic Heparin Sodium (Porcine) (Heparin -) 5,000 unit SQ BID [facility] Last Admin: 08/30/17 22:12 Dose: 5,000 unit Piperacillin Sod/Tazobactam (Sod 2.25 gm/ Dextrose) 50 mls @ 100 mls/hr IVPB Q8H-IV ELIO PRN Reason: Protocol Last Admin: 08/31/17 01:07 Dose: 100 mls/hr Dopamine HCl/Dextrose (Dopamine 400 Mg/D5w -) 250 mls @ 8.386 mls/hr IVPB TITR ELIO; 5 MCG/KG/MIN PRN Reason: Protocol Last Admin: 08/30/17 19:14 Dose: 5 mcg/kg/min, 8.386 mls/hr Mupirocin (Bactroban Ointment (For Decolonization) -) 1 applic NS BID [facility] Stop: 09/04/17 21:59 Last Admin: 08/30/17 22:13 Dose: 1 applic - Objective Vital Signs: Vital Signs Temperature 97.2 F L 08/31/17 02:00 Pulse Rate 89 08/31/17 08:00 Respiratory Rate 20 08/31/17 08:00 Blood Pressure 119/52 08/31/17 08:00 O2 Sat by Pulse Oximetry (%) 96 08/30/17 23:05 Constitutional: Yes: No Distress, Thin Eyes: Yes: Conjunctiva Clear Cardiovascular: Yes: Regular Rate and Rhythm Respiratory: Yes: Other (+ crepitations at bases bilaterally) Gastrointestinal: Yes: Normal Bowel Sounds, Soft. No: Tenderness Edema: No Labs: CBC, BMP 08/31/17 07:20 08/31/17 06:00 INR, PTT INR 1.31 (0.82-1.09) H 08/29/17 16:24 Assessment/Plan RLL pneumonia Decompensated CHF Acute on chronic renal failure Lactic acidosis Elevated LFTs Await c/s Continue empiric zosyn
--- NOTE | 2017-08-31 10:37 | CONS ---
DATE OF CONSULTATION: 08/30/2017 HISTORY: The patient is a 72-year-old male evaluated for pneumonia and sepsis. History was obtained from the chart as well as the patient. He is a 72-year-old man who was admitted to [facility] on August 29, 2017 with a 3-day history of worsening shortness of breath. He had been suffering from an upper respiratory tract infection and had been complaining of rhinorrhea, wheezing, and generalized weakness. He presented to the hospital where he was found to be in respiratory distress. Chest x-ray showed a right lower lobe infiltrate. He was empirically treated with ceftriaxone. In addition, he was treated for decompensated congestive heart failure. His clinical course was complicated by worsening respiratory status with tachypnea and accessory muscle use. He required placement of a BiPAP mask. The patient was transferred to the intensive care unit with worsening respiratory distress. He was noted to have an elevated white blood cell count. The patient is awake and responsive. He is short of breath on BiPAP mask. He reports cough, which has been dry. No sputum production or hemoptysis. He denies any chest pain. No complaints of any recent febrile illness or shaking chills. He lives at home with his nephew. He denies any ill contacts. Denies tobacco use. No recent travel or hospitalizations. No pet exposure. PAST MEDICAL HISTORY: Positive for hypertension, hyperlipidemia, BPH, DVT, congestive heart failure with a markedly reduced ejection fraction, valvular heart disease with aortic insufficiency and mitral regurgitation, stroke versus TIA. PAST SURGICAL HISTORY: Status post TURP in 2017. ALLERGIES: No known allergies. MEDICATIONS: Include Norvasc, Coreg, Lasix. SOCIAL HISTORY: Lives at home with his nephew. He is a nonsmoker. Denies alcohol abuse or illicit drug use. SYSTEMS REVIEW: Neurologic: No loss of consciousness, seizure activity, focal weakness. Cardiac: Negative chest pain or palpitations. Respiratory: As per HPI. Gastrointestinal: Negative vomiting or diarrhea. Genitourinary: BPH with a history of urinary retention status post TURP in December 2016. LABORATORY DATA: White count on admission 11.8, presently 9.9, hematocrit 36.5, platelet count 221, BUN 78, creatinine 2.7. Urinalysis: 0-3 white cells, total bilirubin 2, alkaline phosphatase 81, AST 45. Blood and urine cultures pending. IMAGING: Chest x-ray shows increased markings at the right base. PHYSICAL EXAMINATION: General: He is shortness of breath at rest in mild respiratory distress. Vital Signs: Temperature 98, blood pressure 93/47, pulse 69 regular, respirations 20 per minute. HEENT: Sclerae anicteric. Heart: Sounds S1, S2. Tachycardic. Lungs: Crepitations at the bases bilaterally. Abdomen: Soft. No tenderness elicited. No mass, rebound, or rigidity. Extremities: Negative for edema. IMPRESSION: 1. Right lower lobe pneumonia community acquired versus atypical. 2. Possible sepsis secondary to pneumonia. 3. Decompensated congestive heart failure. 4. Acute on chronic renal failure. 5. Elevated liver enzymes likely passive congestion. Pending cultures. Empiric antibiotic coverage with Zosyn 2.25 g IV piggyback every 8 hours. Obtain sputum culture, urine, Legionella, and pneumococcal antigens. Continue treatment for congestive heart failure. ICU monitoring. We will follow. Thank you for the kind referral. DEVAN MATTA M.D. [id number]
[2017-08-31] MEDS ORDERED: PT OWN MED DRAWER 7, Y5N ONE ×4 (11:04→22:10)
[2017-08-31] MEDS: MUPIROCIN 2% TOPICAL OINTMENT FOR DECOLONIZATION NS SCH ×2 (11:07→22:19)
[2017-08-31] MEDS: ASPIRIN 81 MG CHEWABLE TABLETS PO SCH (11:07)
[2017-08-31] MEDS: HEPARIN NA (PORCINE) 5,000 UNITS/ML 1ML VIAL SQ SCH ×2 (11:08→22:19)
--- NOTE | 2017-08-31 11:53 | PN ---
Physical Exam: SUBJECTIVE: Patient seen and examined , sitting up comfortable in bed, off BiPAP , oxygen saturation 96% on 3L NC. Urine output 800ml yesterday. No new complaints, denies fever, chills, n,v, chest pain, leg swelling. Shortness of breath has improved. OBJECTIVE: Vital Signs Period Temp Pulse Resp BP Sys/Martinez Pulse Ox Last 24 Hr 97.2 F-98.6 F 68-92 18-30 80-126/47-61 96-100 GENERAL: The patient is awake, alert, and fully oriented, in no acute distress. LUNGS: decreased Breath sounds at lung bases, bilateral crackles upper and middle lobe HEART: Regular rate and rhythm, S1, S2 without murmur, rub or gallop. ABDOMEN: Soft, nontender, nondistended, normoactive bowel sounds, no guarding, no rebound, no hepatosplenomegaly, no masses. EXTREMITIES: 2+ pulses, warm, well-perfused, no edema. NEUROLOGICAL: Cranial nerves II through XII grossly intact. Normal speech, gait not observed. Laboratory Results - last 24 hr 08/30/17 08/30/17 08/30/17 10:40 14:12 14:30 WBC RBC Hgb Hct MCV MCH MCHC RDW Plt Count MPV Neutrophils % Lymphocytes % Monocytes % Eosinophils % Basophils % PT Mixing Study Cancelled Anticoagulation Therapy Cancelled Puncture Site Right radial Cancelled Patient Temperature Cancelled ABG pH 7.52 H Cancelled ABG pCO2 at Pt Temp 19.4 L* Cancelled ABG pO2 at Pt Temp 134.0 H D Cancelled ABG HCO3 15.8 L Cancelled ABG O2 Sat (Measured) 99.5 H Cancelled ABG O2 Content 20.9 Cancelled ABG Base Excess -4.3 L Cancelled Dayo Test Not applicable Cancelled O2 Delivery Device N/c Cancelled Oxygen Flow Rate 3.5 l Cancelled Vent Mode Cancelled Vent Rate Cancelled Mechanical Rate Cancelled PEEP Cancelled Pressure Support Vent Cancelled Sodium Potassium Chloride Carbon Dioxide Anion Gap BUN Creatinine Creat Clearance w eGFR Random Glucose Lactic Acid Calcium Phosphorus Magnesium Total Bilirubin AST ALT Alkaline Phosphatase Creatine Kinase 104 Troponin I 0.14 D Total Protein Albumin TSH 08/30/17 08/30/17 08/30/17 18:30 19:20 20:00 WBC 8.3 D RBC 4.11 Hgb 12.2 Hct 36.5 MCV 88.7 MCH 29.8 MCHC 33.5 RDW 17.5 H D Plt Count 201 MPV 9.8 D Neutrophils % 88.2 H D Lymphocytes % 5.8 L D Monocytes % 5.9 Eosinophils % 0.0 D Basophils % 0.1 PT Mixing Study Anticoagulation Therapy Y Puncture Site Left radial Patient Temperature ABG pH 7.47 H ABG pCO2 at Pt Temp 13.6 L* D ABG pO2 at Pt Temp 203.0 H* D ABG HCO3 9.8 L* ABG O2 Sat (Measured) 99.9 H* ABG O2 Content 16.8 ABG Base Excess -11.8 L* Dayo Test Positive O2 Delivery Device Rrb mask Oxygen Flow Rate 100% Vent Mode Y Vent Rate Y Mechanical Rate Y PEEP Pressure Support Vent Y Sodium Potassium Chloride Carbon Dioxide Anion Gap BUN Creatinine Creat Clearance w eGFR Random Glucose Lactic Acid 4.3 H* Calcium Phosphorus Magnesium Total Bilirubin AST ALT Alkaline Phosphatase Creatine Kinase Troponin I Total Protein Albumin TSH 08/30/17 08/30/17 08/30/17 20:00 20:00 22:15 WBC RBC Hgb Hct MCV MCH MCHC RDW Plt Count MPV Neutrophils % Lymphocytes % Monocytes % Eosinophils % Basophils % PT Mixing Study Anticoagulation Therapy Y Puncture Site Right brachial Patient Temperature ABG pH 7.37 ABG pCO2 at Pt Temp 28.7 L D ABG pO2 at Pt Temp 140.0 H D ABG HCO3 16.2 L ABG O2 Sat (Measured) 99.3 H ABG O2 Content 16.1 ABG Base Excess -7.6 L Dayo Test Positive O2 Delivery Device Nonrebreather Oxygen Flow Rate 100% Vent Mode Y Vent Rate Y Mechanical Rate Y PEEP Pressure Support Vent Y Sodium 139 Potassium 5.3 H D Chloride 106 Carbon Dioxide 18 L D Anion Gap 15 BUN 93 H D Creatinine 3.7 H D Creat Clearance w eGFR 16.32 Random Glucose 146 H D Lactic Acid Calcium 8.3 L Phosphorus 7.3 H D Magnesium 2.7 H Total Bilirubin 1.7 H D AST 352 H D ALT 264 H D Alkaline Phosphatase 153 H D Creatine Kinase Troponin I 0.13 H D Total Protein 6.1 L Albumin 3.0 L TSH 08/30/17 08/31/17 08/31/17 23:50 06:00 07:20 WBC 9.9 RBC 4.03 Hgb 11.9 Hct 35.6 MCV 88.2 MCH 29.5 MCHC 33.4 RDW 17.0 H Plt Count 204 MPV 9.9 Neutrophils % 88.5 H Lymphocytes % 4.8 L Monocytes % 6.6 Eosinophils % 0.0 Basophils % 0.1 PT Mixing Study Anticoagulation Therapy Puncture Site Patient Temperature ABG pH ABG pCO2 at Pt Temp ABG pO2 at Pt Temp ABG HCO3 ABG O2 Sat (Measured) ABG O2 Content ABG Base Excess Dayo Test O2 Delivery Device Oxygen Flow Rate Vent Mode Vent Rate Mechanical Rate PEEP Pressure Support Vent Sodium 139 Potassium 4.2 D Chloride 105 Carbon Dioxide 18 L Anion Gap 16 BUN 101 H Creatinine 3.7 H Creat Clearance w eGFR 16.32 Random Glucose 142 H Lactic Acid 1.7 Calcium 8.1 L Phosphorus 7.5 H Magnesium 2.7 H Total Bilirubin 1.2 H D AST 346 H ALT 274 H Alkaline Phosphatase 148 H Creatine Kinase Troponin I Total Protein 5.8 L Albumin 3.0 L TSH 0.96 Active Medications Generic Name Dose Route Start Last Admin Trade Name Freq PRN Reason Stop Dose Admin Albuterol Sulfate 1 amp 08/30/17 17:40 08/31/17 03:44 Ventolin 0.083% Nebulizer Soln - NEB 1 amp Q4H PRN Administration SHORT OF BREATH/WHEEZING Albuterol/Ipratropium 1 amp 08/30/17 18:00 08/30/17 23:02 Duoneb - NEB 1 amp QIDR ELIO Administration Aspirin 81 mg 08/30/17 10:00 08/31/17 11:07 Asa - PO 81 mg DAILY ELIO Administration Chlorhexidine Gluconate 1 applic 08/30/17 22:00 08/30/17 22:13 Hibiclens For Decolonization - TP 1 applic HS ELIO Administration Heparin Sodium (Porcine) 5,000 unit 08/29/17 22:00 08/31/17 11:08 Heparin - SQ 5,000 unit BID ELIO Administration Piperacillin Sod/Tazobactam 50 mls @ 100 mls/hr 08/30/17 18:00 08/31/17 01:07 Sod 2.25 gm/ Dextrose IVPB 100 mls/hr Q8H-IV ELIO Administration Protocol Dopamine HCl/Dextrose 250 mls @ 8.386 mls/hr 08/30/17 19:00 08/30/17 19:14 Dopamine 400 Mg/D5w - IVPB 5 mcg/kg/min TITR ELIO 8.386 mls/hr Protocol Administration 5 MCG/KG/MIN Mupirocin 1 applic 08/30/17 22:00 08/31/17 11:07 Bactroban Ointment (For Decolonization) - NS 09/04/17 21:59 1 applic BID ELIO Administration ASSESSMENT/PLAN: This is a 72 year old male with a past medical history of congestive heart failure, atrial and mitral valve insufficiency, chronic kidney disease, BPH, with initial complaints of shortness of breath found to be in acute heart failure with possible pneumonia. #neuro: no active issues; aaox3; at baseline #Respiratory: -sob secondary to CHF with possible superimposed PNA -off bipap; on NC 3L -keep O2 >90% -cxr evident for cardiomegaly and b/l pleural effusion -incentive spirometry -duonebs prn #Cardiovascular: -r/o cardiogenic shock -acute on chronic congestive heart failure -continue with 40mg lasix IVP ; prn -on dopamine ggt -f/u echo -trop leak; most likely from demand ischemia from sepsis #Renal -Acute on chronic kidney (stage 3) injury -rising creatinine -repeat bmp at 2pm -renal US to eval for hydronephrosis or other pathology -renal dose meds -avoid nephrotoxic agents; lasix is ok prn if patient is not dehydration #GI -elevated LFTs; most likely secondary to sepsis -abdominal US ; showing normal liver;no biliary duct dilation; choledolithiasis #ID: -sepsis sec to PNA -on zosyn/ -f/u cultures -keep MAP>65 -on dopamine ggt #electrolytes -hyperphosphatemia: sec to renal failure VTE: heparin sq Diet: cardiac Disposition: Cont critical care Visit type - Emergency Visit Emergency Visit: Yes ED Registration Date: 08/29/17 Care time: The patient presented to the Emergency Department on the above date and was hospitalized for further evaluation of their emergent condition. - New Patient This patient is new to me today: Yes Date on this admission: 08/31/17 - Critical Care Critical Care patient: Yes Total Critical Care Time (in minutes): 35 Critical Care Statement: The care of this patient involved high complexity decision making to prevent further life threatening deterioration of the patient 's condition and/or to evaluate & treat vital organ system(s) failure or risk of failure.
--- NOTE | 2017-08-31 13:40 | PN ---
Progress Note (short form) - Note Progress Note: c/o generalized weakness and shortness of breath. assoc with non productive cough. deneis fever, chills, N/V/C/D Current Medications Generic Name Dose Route Start Last Admin Trade Name Freq PRN Reason Stop Dose Admin Albuterol Sulfate 1 amp 08/30/17 17:40 08/31/17 03:44 Ventolin 0.083% Nebulizer Soln - NEB 1 amp Q4H PRN Administration SHORT OF BREATH/WHEEZING Albuterol/Ipratropium 1 amp 08/30/17 18:00 08/30/17 23:02 Duoneb - NEB 1 amp QIDR ELIO Administration Aspirin 81 mg 08/30/17 10:00 08/31/17 11:07 Asa - PO 81 mg DAILY ELIO Administration Chlorhexidine Gluconate 1 applic 08/30/17 22:00 08/30/17 22:13 Hibiclens For Decolonization - TP 1 applic HS ELIO Administration Heparin Sodium (Porcine) 5,000 unit 08/29/17 22:00 08/31/17 11:08 Heparin - SQ 5,000 unit BID ELIO Administration Piperacillin Sod/Tazobactam 50 mls @ 100 mls/hr 08/30/17 18:00 08/31/17 13:19 Sod 2.25 gm/ Dextrose IVPB 100 mls/hr Q8H-IV ELIO Administration Protocol Dopamine HCl/Dextrose 250 mls @ 8.386 mls/hr 08/30/17 19:00 08/30/17 19:14 Dopamine 400 Mg/D5w - IVPB 5 mcg/kg/min TITR ELIO 8.386 mls/hr Protocol Administration 5 MCG/KG/MIN Mupirocin 1 applic 08/30/17 22:00 08/31/17 11:07 Bactroban Ointment (For Decolonization) - NS 09/04/17 21:59 1 applic BID ELIO Administration Last Vital Signs Temp Pulse Resp BP Pulse Ox 97.7 F 92 H 30 H 126/54 96 08/31/17 10:00 08/31/17 10:00 08/31/17 10:00 08/31/17 10:00 08/30/17 23:05 Intake & Output 08/28/17 08/29/17 08/30/17 08/31/17 23:59 23:59 23:59 23:59 Intake Total 50 146 Output Total 950 50 Balance -900 96 Weight 98 lb 98 lb 9.6 oz 98 lb 9.6 oz General NAD, frail, appears older than stated age CV S1 S2 RRR no murmur/rub/gallop Lungs decreased breath sounds R base no wheezing/crackles ABdomen soft NT/ND Extremities no pedal edema CBCD WBC 9.9 K/mm3 (4.0-10.0) 08/31/17 07:20 RBC 4.03 M/mm3 (4.00-5.60) 08/31/17 07:20 Hgb 11.9 GM/dL (11.7-16.9) 08/31/17 07:20 Hct 35.6 % (35.4-49) 08/31/17 07:20 MCV 88.2 fl (80-96) 08/31/17 07:20 MCHC 33.4 g/dl (32.0-35.9) 08/31/17 07:20 RDW 17.0 % (11.9-15.9) H 08/31/17 07:20 Plt Count 204 K/MM3 (134-434) 08/31/17 07:20 MPV 9.9 fl (7.5-11.1) 08/31/17 07:20 CMP Sodium 139 mmol/L (136-145) 08/31/17 06:00 Potassium 4.2 mmol/L (3.5-5.1) D 08/31/17 06:00 Chloride 105 mmol/L (98-107) 08/31/17 06:00 Carbon Dioxide 18 mmol/L (21-32) L 08/31/17 06:00 Anion Gap 16 (8-16) 08/31/17 06:00 BUN 101 mg/dL (7-18) H 08/31/17 06:00 Creatinine 3.7 mg/dL (0.7-1.3) H 08/31/17 06:00 Creat Clearance w eGFR 16.32 (>60) 08/31/17 06:00 Calcium 8.1 mg/dL (8.5-10.1) L 08/31/17 06:00 Total Bilirubin 1.2 mg/dL (0.2-1.0) H D 08/31/17 06:00 AST 346 U/L (15-37) H 08/31/17 06:00 ALT 274 U/L (12-78) H 08/31/17 06:00 Alkaline Phosphatase 148 U/L (45-117) H 08/31/17 06:00 Total Protein 5.8 g/dl (6.4-8.2) L 08/31/17 06:00 Albumin 3.0 g/dl (3.4-5.0) L 08/31/17 06:00 A&P 72yo m with PMH CHF, HTN, dyslipidemia, CVA, BPH and CKD presented to the ER with shortness of breath and generalized weakness, was noted to be in acute hypoxic respiratory failure and was transferred from [facility] to MICU at [facility] 1. Acute Hypoxic respiratory failure- due to PNA vs volume overload. was on bipap overnight. currently saturating 97% on 3L NC. titrate supplemental oxygen as tolerated. bipap prn 2. Sepsis due to RLL PNA- on dopamine ggt. hemodynamically stable. titrate down pressor as tolerated. on Vanco/zosyn day 2. ID consulted. 3. acute on Chronic CHF exacerbation- on dopamine ggt. cardiac enzymes flat trend x4. cardio consulted. received lasix 40mg IVP x1. lasix prn. will re- start once kidney function stabilizes. cardio on board. hold betablocker, echo pending. strict I&O, daily weights 4. Acute on CKD- due to sepsis vs pre-renal from volume overload. baseline Cr 1.7. check urine lytes, renal u/s ordered. herrera placed for strict I&O. nephrology consulted. hold ARB 5. Tropinenmia- flat trend of troponins. likely due to sepsis. would likely benefit from ischemic workup once medically optimized. on asa. cardiology on board 6. HTN-currently hypotensive. hold oral antihypertensives 7. DVT ppx- hep sq Visit type - Emergency Visit Emergency Visit: Yes ED Registration Date: 08/29/17 Care time: The patient presented to the Emergency Department on the above date and was hospitalized for further evaluation of their emergent condition. - New Patient This patient is new to me today: Yes Date on this admission: 08/31/17 - Critical Care Critical Care patient: Yes Total Critical Care Time (in minutes): 45 Critical Care Statement: The care of this patient involved high complexity decision making to prevent further life threatening deterioration of the patient 's condition and/or to evaluate & treat vital organ system(s) failure or risk of failure. - Discharge Referral Referred to [facility] No
--- NOTE | 2017-08-31 15:07 | PN ---
Teaching Attending Note Name of Resident: Aleena Francis ATTENDING PHYSICIAN STATEMENT I saw and evaluated the patient. I reviewed the resident's note and discussed the case with the resident. I agree with the resident's findings and plan as documented. SUBJECTIVE: Pt seen and examined in the ICU. States breathing is better today. Denies chest pain. No fevers or chills. Remains on dopamine gtt. OBJECTIVE: Last Vital Signs Temp Pulse Resp BP Pulse Ox 97.7 F 92 H 30 H 126/54 100 08/31/17 10:00 08/31/17 10:00 08/31/17 10:00 08/31/17 10:00 08/31/17 09:00 Intake & Output 08/28/17 08/29/17 08/30/17 08/31/17 23:59 23:59 23:59 23:59 Intake Total 50 146 Output Total 950 50 Balance -900 96 Weight 98 lb 98 lb 9.6 oz 98 lb 9.6 oz Gen: NAD at rest Heart: RRR, +systolic murmur at base Lung: basilar rales Abd: soft, nontender Ext: no edema CBC, BMP 08/31/17 07:20 08/31/17 06:00 INR, PTT INR 1.31 (0.82-1.09) H 08/29/17 16:24 Troponin, BNP 08/30/17 08/30/17 14:12 20:00 Troponin I 0.14 D 0.13 H D Active Medications Albuterol Sulfate (Ventolin 0.083% Nebulizer Soln -) 1 amp NEB Q4H PRN PRN Reason: SHORT OF BREATH/WHEEZING Last Admin: 08/31/17 03:44 Dose: 1 amp Albuterol/Ipratropium (Duoneb -) 1 amp NEB QIDR [facility] Last Admin: 08/30/17 23:02 Dose: 1 amp Aspirin (Asa -) 81 mg PO DAILY [facility] Last Admin: 08/31/17 11:07 Dose: 81 mg Chlorhexidine Gluconate (Hibiclens For Decolonization -) 1 applic TP HS [facility] Last Admin: 08/30/17 22:13 Dose: 1 applic Heparin Sodium (Porcine) (Heparin -) 5,000 unit SQ BID [facility] Last Admin: 08/31/17 11:08 Dose: 5,000 unit Piperacillin Sod/Tazobactam (Sod 2.25 gm/ Dextrose) 50 mls @ 100 mls/hr IVPB Q8H-IV ELIO PRN Reason: Protocol Last Admin: 08/31/17 13:19 Dose: 100 mls/hr Dopamine HCl/Dextrose (Dopamine 400 Mg/D5w -) 250 mls @ 8.386 mls/hr IVPB TITR ELIO; 5 MCG/KG/MIN PRN Reason: Protocol Last Admin: 08/30/17 19:14 Dose: 5 mcg/kg/min, 8.386 mls/hr Mupirocin (Bactroban Ointment (For Decolonization) -) 1 applic NS BID ELIO Stop: 09/04/17 21:59 Last Admin: 08/31/17 11:07 Dose: 1 applic ASSESSMENT AND PLAN: Acute on Chronic Systolic Heart Failure Severe Mitral Regurgitation Tricuspid/Pulmonic Regurgitation r/o Pneumonia HTN h/o DVT - continue dopamine - IV lasix - monitor urine output, creatinine - cardiology f/u - O2 to keep SpO2 >90% - on empiric antibiotics - f/u cultures - can d/c antibiotics if cultures negative as clinical picture more consistent with decompensated heart failure - PO as tolerated - DVT prophylaxis critical care time spent in reviewing chart, evaluating patient and formulating plan 36 min
--- NOTE | 2017-08-31 17:30 | PN ---
Progress Note, Physician History of Present Illness: Transferred from [facility] yesterday because of worsening respiratory status, requiring BIPAP Started on DA because of hypotension to the 80s Worsening RF No new complaints. feels better today - Current Medication List Current Medications: Active Medications Albuterol Sulfate (Ventolin 0.083% Nebulizer Soln -) 1 amp NEB Q4H PRN PRN Reason: SHORT OF BREATH/WHEEZING Last Admin: 08/31/17 03:44 Dose: 1 amp Albuterol/Ipratropium (Duoneb -) 1 amp NEB QIDR [facility] Last Admin: 08/30/17 23:02 Dose: 1 amp Aspirin (Asa -) 81 mg PO DAILY [facility] Last Admin: 08/31/17 11:07 Dose: 81 mg Chlorhexidine Gluconate (Hibiclens For Decolonization -) 1 applic TP HS [facility] Last Admin: 08/30/17 22:13 Dose: 1 applic Heparin Sodium (Porcine) (Heparin -) 5,000 unit SQ BID [facility] Last Admin: 08/31/17 11:08 Dose: 5,000 unit Piperacillin Sod/Tazobactam (Sod 2.25 gm/ Dextrose) 50 mls @ 100 mls/hr IVPB Q8H-IV ELIO PRN Reason: Protocol Last Admin: 08/31/17 13:19 Dose: 100 mls/hr Dopamine HCl/Dextrose (Dopamine 400 Mg/D5w -) 250 mls @ 8.386 mls/hr IVPB TITR ELIO; 5 MCG/KG/MIN PRN Reason: Protocol Last Admin: 08/30/17 19:14 Dose: 5 mcg/kg/min, 8.386 mls/hr Mupirocin (Bactroban Ointment (For Decolonization) -) 1 applic NS BID [facility] Stop: 09/04/17 21:59 Last Admin: 08/31/17 11:07 Dose: 1 applic - Objective Vital Signs: Vital Signs Temperature 98.2 F 08/31/17 16:00 Pulse Rate 87 08/31/17 16:00 Respiratory Rate 20 08/31/17 16:00 Blood Pressure 130/54 08/31/17 16:00 O2 Sat by Pulse Oximetry (%) 100 08/31/17 09:00 Constitutional: Yes: No Distress Eyes: Yes: Conjunctiva Clear HENT: Yes: Atraumatic Neck: Yes: Supple Cardiovascular: Yes: Regular Rate and Rhythm, Murmur (systolic and diastolic) Respiratory: No: Rales, Rhonchi, Wheezes Gastrointestinal: Yes: Normal Bowel Sounds, Soft. No: Tenderness Edema: No Peripheral Pulses WNL: Yes Neurological: Yes: Alert, Oriented Psychiatric: Yes: Alert, Oriented Labs: CBC, BMP 08/31/17 07:20 08/31/17 06:00 INR, PTT INR 1.31 (0.82-1.09) H 08/29/17 16:24 Assessment/Plan 72 yo male with the above history, here with SOB/FISCHER for 3-4 days. There was some evidence of fluid overload -> small effusions and he reported orthopnea (though no wt gain or MISAEL). However, the BNP (155,918) seemed elevated out of proportion to the degree of CHF -> may be in part due to chronic RF. Patient has known severe AI, mod-sev MR and mod-sev LV dysfunction -> meeting criteria for valve surgery. However at the last visit here in 04/09, he wasn't committal, but was supposed to follow up to discuss further and never did There may be a RLL infiltrate to suggest a pna -> he had an elevated WBC on arrival, but no fevers and no other symptoms Urine growing staph, strep or enterococcus No evidence of ACS initially -> now indeterminate trop I in setting of worsening RF -> not diagnostic of ACS Pt now on DA for hypotension to the 80s -> may be secondary to dehydration in setting of severe valvular disease and LV dysfunction (EF now 15%) Worsening RF, acidosis -> followed by nephrology Rec: Taper DA to off to keep MAP > 65 per renal Only give lasix prn, for now Cont holding coreg and norvasc No CATHLEEN-I/ARB given RF Cont ASA I again spoke to him yesterday about valve surgery and he seemed open to the idea. 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
[2017-08-31] MEDS: DOPAMINE 400 MG/D5W - 250 ML IVPB SCH (19:32)
[2017-08-31 21:58] LABS: ANION GAP 14 (8-16); CO2 21 mmol/L (21-32); CREATININE 3.4 mg/dL (0.7-1.3); GLUCOSE,RANDOM 184 mg/dL (74-106)
[2017-08-31] MEDS: CHLORHEXIDINE GLUCONATE 4% CLEANSER FOR DECOLONIZATION TP SCH (22:19)
[2017-09-01] MEDS: ALBUTEROL SO4 2.5/IPRATROPIUM 0.5 INH SOL 3 ML VIAL.NEB. NEB SCH ×5 (00:18→23:09)
[2017-09-01] MEDS: PIPERACILLIN/TAZOB 2.25 GM 2.25 GM in DEXTROSE 5%-WATER - 50 ML IVPB SCH ×2 (02:00→11:57)
[2017-09-01 06:44] LABS: BASOPHIL 0.2 % (0-2.0); EOSINOPHIL 0.1 % (0-4.5); MCH 29.5 pg (25.7-33.7); MCHC 33.8 g/dl (32.0-35.9); MEAN CELL VOLUME 87.2 fl (80-96); MEAN PLT VOLUME 9.6 fl (7.5-11.1); PLATELET COUNT 240 K/MM3 (134-434); RDW 17.4 % (11.9-15.9); WHITE BLOOD COUNT 15.1 K/mm3 (4.0-10.0)
[2017-09-01 07:19] LABS: ALBUMIN 2.9 g/dl (3.4-5.0); ANION GAP 17 (8-16); CO2 20 mmol/L (21-32); CREATININE 2.9 mg/dL (0.7-1.3); GLUCOSE,RANDOM 122 mg/dL (74-106); MAGNESIUM 2.7 mg/dL (1.8-2.4); PHOSPHOROUS 4.7 mg/dL (2.5-4.9); SGOT/AST 96 U/L (15-37); SGPT/ALT 193 U/L (12-78)
[2017-09-01 07:21] LABS: ALK PHOS 124 U/L (45-117); TOT PROT 5.9 g/dl (6.4-8.2)
[2017-09-01] MEDS ORDERED: POTASSIUM CHLORIDE TABS 20 MEQ TABLET.ER (FP) PO ONE (08:07)
[2017-09-01] MEDS ORDERED: PT OWN MED DRAWER 7, Y5N ONE ×2 (09:24→18:57)
[2017-09-01] MEDS ORDERED: FUROSEMIDE 40 MG/4 ML INJECTABLE VIAL IVPUSH SCH (10:00)
--- NOTE | 2017-09-01 10:02 | PN ---
Progress Note, Physician History of Present Illness: No new complaints. Dyspnea improved but not resolved. No chest pain. - Current Medication List Current Medications: Active Medications Albuterol Sulfate (Ventolin 0.083% Nebulizer Soln -) 1 amp NEB Q4H PRN PRN Reason: SHORT OF BREATH/WHEEZING Last Admin: 08/31/17 03:44 Dose: 1 amp Albuterol/Ipratropium (Duoneb -) 1 amp NEB QIDR [facility] Last Admin: 09/01/17 06:17 Dose: 1 amp Aspirin (Asa -) 81 mg PO DAILY [facility] Last Admin: 08/31/17 11:07 Dose: 81 mg Chlorhexidine Gluconate (Hibiclens For Decolonization -) 1 applic TP HS [facility] Last Admin: 08/31/17 22:19 Dose: 1 applic Heparin Sodium (Porcine) (Heparin -) 5,000 unit SQ BID [facility] Last Admin: 08/31/17 22:19 Dose: 5,000 unit Piperacillin Sod/Tazobactam (Sod 2.25 gm/ Dextrose) 50 mls @ 100 mls/hr IVPB Q8H-IV [facility] PRN Reason: Protocol Last Admin: 09/01/17 02:00 Dose: 100 mls/hr Dopamine HCl/Dextrose (Dopamine 400 Mg/D5w -) 250 mls @ 8.386 mls/hr IVPB TITR [facility]; 5 MCG/KG/MIN PRN Reason: Protocol Last Admin: 08/31/17 19:32 Dose: 5 mcg/kg/min, 8.386 mls/hr Mupirocin (Bactroban Ointment (For Decolonization) -) 1 applic NS BID [facility] Stop: 09/04/17 21:59 Last Admin: 08/31/17 22:19 Dose: 1 applic - Objective Vital Signs: Vital Signs Temperature 98.2 F 09/01/17 06:00 Pulse Rate 99 H 09/01/17 08:00 Respiratory Rate 21 09/01/17 08:00 Blood Pressure 142/62 09/01/17 08:00 O2 Sat by Pulse Oximetry (%) 99 08/31/17 22:00 Constitutional: Yes: No Distress Eyes: Yes: Conjunctiva Clear, EOM Intact HENT: Yes: Atraumatic, Normocephalic Cardiovascular: Yes: Regular Rate and Rhythm, Murmur, Other (Prominent carotid upstroke.). No: JVD Respiratory: Yes: Diminished (at bases otherwise clear) Gastrointestinal: Yes: Normal Bowel Sounds. No: Soft, Distention, Tenderness Edema: No Neurological: Yes: Alert, Oriented Labs: CBC, BMP 09/01/17 06:10 09/01/17 06:10 INR, PTT INR 1.31 (0.82-1.09) H 08/29/17 16:24 Assessment/Plan 72 yo male with HTN, severe AR, severe MR, chronic systolic heart failure, who was admitted with SOB/FISCHER x 4 days. Patient was on admssion with some evidence of fluid overload -> small effusions and orthopnea (though no wt gain or LE edema). However, the BNP (155,918) seemed elevated out of proportion to the degree of CHF -> may be in part due to renal failure. 08/31/17 Echo: Moderately dilated LV with severely reduced systolic function, severe AR, severe MR, severe CA, moderate biatrial enlargement, moderate aortic root dilatation, and RVSP 44.8 mmHg. Currently being empirically treated for pneumonia given RLL infiltrate and elevated WBC on admission, but no fevers and no other symptoms Urine culture positive for staph & strep or enterococcus No evidence of ACS initially -> now indeterminate trop I in setting of worsening RF -> not diagnostic of ACS Currently on dopamine gtt initially for hypotension with SBP 80s -> may be secondary to dehydration in setting of severe valvular disease and LV dysfunction (EF now 15%) Worsening RF, acidosis -> followed by nephrology RECS: Taper dopamine gtt to keep MAP > 65 mmHg Only give lasix prn, for now Continue to hold carvedilol and amlodipine for now No CATHLEEN-I/ARB given renal failure Continue Patient is agreeable to eventually undergoing evaluation for valve surgery. However, he will need right and left cardiac catheterization prior to that and he is currently not a candidate for cath given his renal failure. If his renal function improves or he ends up on hemodialysis, will consider cath at that time. Management of renal failure as per nephrology. Further recs as per intensive care team. Will follow. Please call with questions.
--- NOTE | 2017-09-01 10:19 | PN ---
Progress Note, Physician History of Present Illness: More comfortable appearing this am C/O bilateral pressure-like discomfort lower chest Slightly dyspneic on nasal cannula Denies cough or sputum production No c/o fever/ chills Afebrile WBC elevated this am + loose BMs - Current Medication List Current Medications: Active Medications Albuterol Sulfate (Ventolin 0.083% Nebulizer Soln -) 1 amp NEB Q4H PRN PRN Reason: SHORT OF BREATH/WHEEZING Last Admin: 08/31/17 03:44 Dose: 1 amp Albuterol/Ipratropium (Duoneb -) 1 amp NEB QIDR [facility] Last Admin: 09/01/17 06:17 Dose: 1 amp Aspirin (Asa -) 81 mg PO DAILY [facility] Last Admin: 08/31/17 11:07 Dose: 81 mg Chlorhexidine Gluconate (Hibiclens For Decolonization -) 1 applic TP HS [facility] Last Admin: 08/31/17 22:19 Dose: 1 applic Furosemide (Lasix Injection -) 40 mg IVPUSH DAILY [facility] Heparin Sodium (Porcine) (Heparin -) 5,000 unit SQ BID [facility] Last Admin: 08/31/17 22:19 Dose: 5,000 unit Piperacillin Sod/Tazobactam (Sod 2.25 gm/ Dextrose) 50 mls @ 100 mls/hr IVPB Q8H-IV [facility] PRN Reason: Protocol Last Admin: 09/01/17 02:00 Dose: 100 mls/hr Dopamine HCl/Dextrose (Dopamine 400 Mg/D5w -) 250 mls @ 8.386 mls/hr IVPB TITR [facility]; 5 MCG/KG/MIN PRN Reason: Protocol Last Admin: 08/31/17 19:32 Dose: 5 mcg/kg/min, 8.386 mls/hr Mupirocin (Bactroban Ointment (For Decolonization) -) 1 applic NS BID [facility] Stop: 09/04/17 21:59 Last Admin: 08/31/17 22:19 Dose: 1 applic - Objective Vital Signs: Vital Signs Temperature 98.2 F 09/01/17 06:00 Pulse Rate 99 H 09/01/17 08:00 Respiratory Rate 21 09/01/17 08:00 Blood Pressure 142/62 09/01/17 08:00 O2 Sat by Pulse Oximetry (%) 99 08/31/17 22:00 Constitutional: Yes: No Distress, Thin Cardiovascular: Yes: Regular Rate and Rhythm, Murmur, S1, S2 Respiratory: Yes: Other (decreased BS R base Rales L base) Gastrointestinal: Yes: Normal Bowel Sounds, Soft. No: Tenderness Edema: No Labs: CBC, BMP 09/01/17 06:10 09/01/17 06:10 INR, PTT INR 1.31 (0.82-1.09) H 08/29/17 16:24 Assessment/Plan RLL pneumonia Decompensated CHF Acute on chronic renal failure Lactic acidosis Elevated LFTs ? passive congestion Repeat CXR Substitute ceftriaxone
[2017-09-01] MEDS ORDERED: CEFTRIAXONE 1 G/50 ML PREMIX 50 ML IVPB SCH (11:00)
[2017-09-01] MEDS: ASPIRIN 81 MG CHEWABLE TABLETS PO SCH (11:33)
[2017-09-01] MEDS: HEPARIN NA (PORCINE) 5,000 UNITS/ML 1ML VIAL SQ SCH ×2 (11:34→22:16)
[2017-09-01] MEDS: MUPIROCIN 2% TOPICAL OINTMENT FOR DECOLONIZATION NS SCH (11:34)
--- NOTE | 2017-09-01 13:15 | PN ---
Physical Exam: SUBJECTIVE: Patient seen and examined c/o abdominal pain, worsening shortness of breath when compared to yesterday. Adequate urinary output s/p IV lasix. Renal functioning improving. OBJECTIVE: Vital Signs Period Temp Pulse Resp BP Sys/Martinez Pulse Ox Last 24 Hr 97 F-98.2 F 79-99 16-26 116-151/54-74 92-99 GENERAL: The patient is awake, alert, and fully oriented, in no acute distress. HEAD: Normal with no signs of trauma. NECK: Trachea midline, full range of motion, supple. b/l jvd LUNGS: decreased Breath sounds equal, clear to auscultation bilaterally, no wheezes, + RL crackles, no accessory muscle use. HEART: Regular rate and rhythm, S1, S2 with III/ systolic murmur, rub or gallop. ABDOMEN: Soft, nontender, nondistended, normoactive bowel sounds, no guarding, no rebound, no hepatosplenomegaly, no masses. EXTREMITIES: 2+ pulses, warm, well-perfused, no edema. Laboratory Results - last 24 hr 08/31/17 08/31/17 08/31/17 09:33 11:40 11:40 WBC RBC Hgb Hct MCV MCH MCHC RDW Plt Count MPV Neutrophils % Lymphocytes % Monocytes % Eosinophils % Basophils % Sodium Potassium Chloride Carbon Dioxide Anion Gap BUN Creatinine Creat Clearance w eGFR Random Glucose Lactic Acid Calcium Phosphorus Magnesium Total Bilirubin AST ALT Alkaline Phosphatase Total Protein Albumin U Random Total Protein 30 H Ur Random Sodium 16 Ur Random Urea Nitrogn Urine Creatinine 73.4 08/31/17 08/31/17 08/31/17 11:40 15:00 21:00 WBC RBC Hgb Hct MCV MCH MCHC RDW Plt Count MPV Neutrophils % Lymphocytes % Monocytes % Eosinophils % Basophils % Sodium 137 Potassium 3.6 Chloride 102 Carbon Dioxide 21 Anion Gap 14 BUN 98 H Creatinine 3.4 H Creat Clearance w eGFR Random Glucose 184 H D Lactic Acid 2.5 H* Calcium 8.0 L Phosphorus Magnesium Total Bilirubin AST ALT Alkaline Phosphatase Total Protein Albumin U Random Total Protein Ur Random Sodium Ur Random Urea Nitrogn 715 Urine Creatinine 09/01/17 09/01/17 09/01/17 06:10 06:10 08:40 WBC 15.1 H D RBC 4.08 Hgb 12.0 Hct 35.5 MCV 87.2 MCH 29.5 MCHC 33.8 RDW 17.4 H Plt Count 240 MPV 9.6 Neutrophils % 92.0 H Lymphocytes % 1.8 L D Monocytes % 5.9 Eosinophils % 0.1 D Basophils % 0.2 Sodium 139 Potassium 3.4 L Chloride 102 Carbon Dioxide 20 L Anion Gap 17 H BUN 89 H Creatinine 2.9 H Creat Clearance w eGFR 21.62 Random Glucose 122 H D Lactic Acid 1.4 Calcium 8.0 L Phosphorus 4.7 D Magnesium 2.7 H Total Bilirubin 1.0 AST 96 H D ALT 193 H D Alkaline Phosphatase 124 H Total Protein 5.9 L Albumin 2.9 L U Random Total Protein Ur Random Sodium Ur Random Urea Nitrogn Urine Creatinine Active Medications Generic Name Dose Route Start Last Admin Trade Name Freq PRN Reason Stop Dose Admin Albuterol Sulfate 1 amp 08/30/17 17:40 08/31/17 03:44 Ventolin 0.083% Nebulizer Soln - NEB 1 amp Q4H PRN Administration SHORT OF BREATH/WHEEZING Albuterol/Ipratropium 1 amp 08/30/17 18:00 09/01/17 11:36 Duoneb - NEB Not Given QIDR [facility] Aspirin 81 mg 08/30/17 10:00 09/01/17 11:33 Asa - PO 81 mg DAILY [facility] Administration Chlorhexidine Gluconate 1 applic 08/30/17 22:00 08/31/17 22:19 Hibiclens For Decolonization - TP 1 applic HS [facility] Administration Furosemide 40 mg 09/01/17 10:00 09/01/17 11:57 Lasix Injection - IVPUSH 40 mg DAILY [facility] Administration Heparin Sodium (Porcine) 5,000 unit 08/29/17 22:00 09/01/17 11:34 Heparin - SQ 5,000 unit BID [facility] Administration Dopamine HCl/Dextrose 250 mls @ 8.386 mls/hr 08/30/17 19:00 08/31/17 19:32 Dopamine 400 Mg/D5w - IVPB 5 mcg/kg/min TITR [facility] 8.386 mls/hr Protocol Administration 5 MCG/KG/MIN CEFTRIAXONE 1 G/50 ML PREMIX 50 mls @ 100 mls/hr 09/01/17 11:00 09/01/17 11: 57 Ceftriaxone 1 Gm-D5w Bag IVPB 100 mls/hr DAILY [facility] Administration Mupirocin 1 applic 08/30/17 22:00 09/01/17 11:34 Bactroban Ointment (For Decolonization) - NS 09/04/17 21:59 1 applic BID [facility] Administration ASSESSMENT/PLAN: This is a 72 year old male with a past medical history of congestive heart failure, atrial and mitral valve insufficiency, chronic kidney disease, BPH, with initial complaints of shortness of breath found to be in acute congested heart failure with possible superimposed RLL pneumonia. #neuro: no active issues; aaox3; at baseline #Respiratory: -sob secondary to CHF with possible superimposed PNA -off bipap; on NC 3L -keep O2 >90% -cxr evident for cardiomegaly and b/l pleural effusion; today CXR worsening R effusion -start IV lasix 40mg IVP qd -incentive spirometry -duonebs prn #Cardiovascular: -r/o cardiogenic shock: improved -acute on chronic congestive heart failure -d/c dopmaine ggt -continue with 40mg lasix IVP ; prn -on dopamine ggt -f/u echo -trop leak; most likely from demand ischemia from sepsis #Renal -Acute on chronic kidney (stage 3) injury : improving -rising creatinine -repeat bmp at 2pm -renal US to right mild hydronephrosis; may be residual from previous history of hydro -renal dose meds -avoid nephrotoxic agents; lasix is ok prn if patient is not dehydrated -appreciate renal #GI -elevated LFTs; most likely secondary to sepsis: improving -abdominal US ; showing normal liver;no biliary duct dilation; choledolithiasis #ID: -sepsis sec to PNA -IV antibiotics switched to ceftriaxone; -blood cultures negative; -urine culture_strep D/enter; looks to be containment -keep MAP>65 #electrolytes -hyperphosphatemia: sec to renal failure VTE: heparin sq Diet: cardiac Disposition: stable to transfer to tele Visit type - Emergency Visit Emergency Visit: Yes ED Registration Date: 08/29/17 Care time: The patient presented to the Emergency Department on the above date and was hospitalized for further evaluation of their emergent condition. - New Patient This patient is new to me today: No - Critical Care Critical Care patient: Yes Total Critical Care Time (in minutes): 35 Critical Care Statement: The care of this patient involved high complexity decision making to prevent further life threatening deterioration of the patient 's condition and/or to evaluate & treat vital organ system(s) failure or risk of failure.
--- NOTE | 2017-09-01 13:32 | PN ---
Teaching Attending Note Name of Resident: Aleena Francis ATTENDING PHYSICIAN STATEMENT I saw and evaluated the patient. I reviewed the resident's note and discussed the case with the resident. I agree with the resident's findings and plan as documented. SUBJECTIVE: Pt seen and examined in the ICU. Off dopamine gtt. Reports some shortness of breath but without chest pain. No fevers recorded. OBJECTIVE: Last Vital Signs Temp Pulse Resp BP Pulse Ox 97.5 F L 89 16 151/67 92 L 09/01/17 10:00 09/01/17 11:43 09/01/17 10:00 09/01/17 10:00 09/01/17 11:43 Intake & Output 08/29/17 08/30/17 08/31/17 09/01/17 23:59 23:59 23:59 23:59 Intake Total 50 1426 350 Output Total 950 800 800 Balance -900 626 -450 Weight 98 lb 98 lb 9.6 oz 98 lb 9.6 oz 100 lb 6.4 oz Gen: mildly tachypneic at rest Heart: RRR, +systolic murmur at base Lung: basilar rales Abd: soft, nontender Ext: no edema CBC, BMP 09/01/17 06:10 09/01/17 06:10 Active Medications Albuterol Sulfate (Ventolin 0.083% Nebulizer Soln -) 1 amp NEB Q4H PRN PRN Reason: SHORT OF BREATH/WHEEZING Last Admin: 08/31/17 03:44 Dose: 1 amp Albuterol/Ipratropium (Duoneb -) 1 amp NEB QIDR [facility] Last Admin: 09/01/17 11:36 Dose: Not Given Aspirin (Asa -) 81 mg PO DAILY [facility] Last Admin: 09/01/17 11:33 Dose: 81 mg Chlorhexidine Gluconate (Hibiclens For Decolonization -) 1 applic TP HS [facility] Last Admin: 08/31/17 22:19 Dose: 1 applic Furosemide (Lasix Injection -) 40 mg IVPUSH DAILY [facility] Last Admin: 09/01/17 11:57 Dose: 40 mg Furosemide (Lasix Injection -) 40 mg IVPUSH ONCE ONE Stop: 09/01/17 18:01 Heparin Sodium (Porcine) (Heparin -) 5,000 unit SQ BID [facility] Last Admin: 09/01/17 11:34 Dose: 5,000 unit Dopamine HCl/Dextrose (Dopamine 400 Mg/D5w -) 250 mls @ 8.386 mls/hr IVPB TITR [facility]; 5 MCG/KG/MIN PRN Reason: Protocol Last Admin: 08/31/17 19:32 Dose: 5 mcg/kg/min, 8.386 mls/hr CEFTRIAXONE 1 G/50 ML PREMIX (Ceftriaxone 1 Gm-D5w Bag) 50 mls @ 100 mls/hr IVPB DAILY [facility] Last Admin: 09/01/17 11:57 Dose: 100 mls/hr Mupirocin (Bactroban Ointment (For Decolonization) -) 1 applic NS BID [facility] Stop: 09/04/17 21:59 Last Admin: 09/01/17 11:34 Dose: 1 applic ASSESSMENT AND PLAN: Acute on Chronic Systolic Heart Failure Severe Mitral Regurgitation Tricuspid/Pulmonic Regurgitation r/o Cardiogenic Shock r/o Pneumonia HTN h/o DVT - dopamine tapered off - continue IV lasix - monitor urine output, creatinine - O2 to keep SpO2 >90% - on empiric antibiotics - f/u cultures - can d/c antibiotics if cultures negative as clinical picture more consistent with decompensated heart failure - PO as tolerated - DVT prophylaxis - can monitor on telemetry critical care time spent in reviewing chart, evaluating patient and formulating plan 36 min
--- NOTE | 2017-09-01 15:01 | PN ---
Progress Note (short form) - Note Progress Note: Renal Follow up for FABIAN on CKD Pt seen and examined in the ICU awake and alert on NC O2 on dopamine making urine via herrera Vital Signs Temperature 97.5 F L 09/01/17 10:00 Pulse Rate 89 09/01/17 11:43 Respiratory Rate 16 09/01/17 10:00 Blood Pressure 151/67 09/01/17 10:00 O2 Sat by Pulse Oximetry (%) 92 L 09/01/17 11:43 Intake & Output 08/29/17 08/30/17 08/31/17 09/01/17 23:59 23:59 23:59 23:59 Intake Total 50 1426 350 Output Total 950 800 800 Balance -900 626 -450 Weight 98 lb 98 lb 9.6 oz 98 lb 9.6 oz 100 lb 6.4 oz NAD on NC O2 RRR, NO M/R Dec Bs at lung bases soft NT/ND No LE edema CBC, BMP 09/01/17 06:10 09/01/17 06:10 Current Medications Albuterol Sulfate (Ventolin 0.083% Nebulizer Soln -) 1 amp NEB Q4H PRN PRN Reason: SHORT OF BREATH/WHEEZING Last Admin: 08/31/17 03:44 Dose: 1 amp Albuterol/Ipratropium (Duoneb -) 1 amp NEB QIDR [facility] Last Admin: 09/01/17 11:36 Dose: Not Given Aspirin (Asa -) 81 mg PO DAILY [facility] Last Admin: 09/01/17 11:33 Dose: 81 mg Chlorhexidine Gluconate (Hibiclens For Decolonization -) 1 applic TP HS [facility] Last Admin: 08/31/17 22:19 Dose: 1 applic Furosemide (Lasix Injection -) 40 mg IVPUSH DAILY [facility] Last Admin: 09/01/17 11:57 Dose: 40 mg Furosemide (Lasix Injection -) 40 mg IVPUSH ONCE ONE Stop: 09/01/17 18:01 Heparin Sodium (Porcine) (Heparin -) 5,000 unit SQ BID [facility] Last Admin: 09/01/17 11:34 Dose: 5,000 unit Dopamine HCl/Dextrose (Dopamine 400 Mg/D5w -) 250 mls @ 8.386 mls/hr IVPB TITR [facility]; 5 MCG/KG/MIN PRN Reason: Protocol Last Admin: 08/31/17 19:32 Dose: 5 mcg/kg/min, 8.386 mls/hr CEFTRIAXONE 1 G/50 ML PREMIX (Ceftriaxone 1 Gm-D5w Bag) 50 mls @ 100 mls/hr IVPB DAILY [facility] Last Admin: 09/01/17 11:57 Dose: 100 mls/hr Mupirocin (Bactroban Ointment (For Decolonization) -) 1 applic NS BID [facility] Stop: 09/04/17 21:59 Last Admin: 09/01/17 11:34 Dose: 1 applic This is a 72 year old Gentleman with PMhx of CKD Stage 3 (baseline Cr 1.5-1.8), Hx of B/L hydronephrosis secondary to BPH now s/p TURP, Hypertension, CHF/ Valvuar disease, Hx of DVT who presents to the ED with complaints of SOB, LE weakness with viral prodrome and found to have FABIAN with Cr of 2.5-> 3.7. #Acute Renal Failure Etiology appears to be hemodynamic injury in setting of Sepsis with HF urine studies show low feNa and thus preserved tubular function no significant proteinuria Us showed b/l hydronephrosis but pt is making urine and Herrera is in place ? if this is a functional hydronephrosis vs. residual dilatation from prior injury pt had a turp earlier this year pt also reports voiding w/o difficulty continue dopamine and titrate to map > 65 PRN lasix for sob/hypoxia no indication for CATEGORY SPECIALIST #CHF Cardiology following PRN Lasix on Dopamine gtt No CATHLEEN/ARB given renal injury #Sepsis continue Abx F/u cultures ICU monitoring Keep MAP > 65 Thank you Will follow Flex Lo DO Problem List - Problems (1) Acute renal failure Code(s): N17.9 - ACUTE KIDNEY FAILURE, UNSPECIFIED Qualifiers: Acute renal failure type: unspecified Qualified Code(s): N17.9 - Acute kidney failure, unspecified (2) Respiratory distress Code(s): R06.00 - DYSPNEA, UNSPECIFIED (3) Shortness of breath Code(s): R06.02 - SHORTNESS OF BREATH (4) CHF (congestive heart failure) Code(s): I50.9 - HEART FAILURE, UNSPECIFIED Qualifiers: Congestive heart failure type: unspecified congestive heart failure type Congestive heart failure chronicity: unspecified congestive heart failure chronicity Qualified Code(s): I50.9 - Heart failure, unspecified (5) Sepsis Code(s): A41.9 - SEPSIS, UNSPECIFIED ORGANISM
[2017-09-01] MEDS ORDERED: ALBUTEROL SO4 0.083% IH SOL 2.5 MG/3 ML VIAL.NEB. NEB PRN (15:59)
[2017-09-01] MEDS ORDERED: DOPAMINE 400 MG/D5W - 400,000 MCG/250 ML INFUS.BAG IVPB SCH (15:59)
--- NOTE | 2017-09-01 16:01 | PN ---
Progress Note (short form) - Note Progress Note: Subjective: The patient was seen and examined at the bedside, he states she was feeling short of breath this morning wile sitting in the chair Current Medications Generic Name Dose Route Start Last Admin Trade Name Ronaldo PRN Reason Stop Dose Admin Albuterol Sulfate 1 amp 08/30/17 17:40 08/31/17 03:44 Ventolin 0.083% Nebulizer Soln - NEB 1 amp Q4H PRN Administration SHORT OF BREATH/WHEEZING Albuterol/Ipratropium 1 amp 08/30/17 18:00 09/01/17 11:36 Duoneb - NEB Not Given QIDR ELIO Aspirin 81 mg 08/30/17 10:00 09/01/17 11:33 Asa - PO 81 mg DAILY ELIO Administration Chlorhexidine Gluconate 1 applic 08/30/17 22:00 08/31/17 22:19 Hibiclens For Decolonization - TP 1 applic HS ELIO Administration Furosemide 40 mg 09/01/17 10:00 09/01/17 11:57 Lasix Injection - IVPUSH 40 mg DAILY ELIO Administration Furosemide 40 mg 09/01/17 18:00 Lasix Injection - IVPUSH 09/01/17 18:01 ONCE ONE Heparin Sodium (Porcine) 5,000 unit 08/29/17 22:00 09/01/17 11:34 Heparin - SQ 5,000 unit BID ELIO Administration Dopamine HCl/Dextrose 250 mls @ 8.386 mls/hr 08/30/17 19:00 09/01/17 09:40 Dopamine 400 Mg/D5w - IVPB 0 mcg/kg/min TITR ELIO 0 mls/hr Protocol Titration 5 MCG/KG/MIN CEFTRIAXONE 1 G/50 ML PREMIX 50 mls @ 100 mls/hr 09/01/17 11:00 09/01/17 11: 57 Ceftriaxone 1 Gm-D5w Bag IVPB 100 mls/hr DAILY ELIO Administration Mupirocin 1 applic 08/30/17 22:00 09/01/17 11:34 Bactroban Ointment (For Decolonization) - NS 09/04/17 21:59 1 applic BID ELIO Administration Objective: Vital Signs Period Temp Pulse Resp BP Sys/Martinez Pulse Ox Last 24 Hr 97 F-98.2 F 79-99 16-30 130-151/54-77 92-99 Physical Exam: General: NAD, A&Ox3 Lungs: Basilar rales Heart: RRR, S1S2, +systolic murmur Abd: Soft, non-tender, non-distended. Normoactive bowel sounds Ext: Warm, well-perfused. 2+ DP/PT bilaterally. No edema CBCD WBC 15.1 K/mm3 (4.0-10.0) H D 09/01/17 06:10 RBC 4.08 M/mm3 (4.00-5.60) 09/01/17 06:10 Hgb 12.0 GM/dL (11.7-16.9) 09/01/17 06:10 Hct 35.5 % (35.4-49) 09/01/17 06:10 MCV 87.2 fl (80-96) 09/01/17 06:10 MCHC 33.8 g/dl (32.0-35.9) 09/01/17 06:10 RDW 17.4 % (11.9-15.9) H 09/01/17 06:10 Plt Count 240 K/MM3 (134-434) 09/01/17 06:10 MPV 9.6 fl (7.5-11.1) 09/01/17 06:10 CMP Sodium 139 mmol/L (136-145) 09/01/17 06:10 Potassium 3.4 mmol/L (3.5-5.1) L 09/01/17 06:10 Chloride 102 mmol/L (98-107) 09/01/17 06:10 Carbon Dioxide 20 mmol/L (21-32) L 09/01/17 06:10 Anion Gap 17 (8-16) H 09/01/17 06:10 BUN 89 mg/dL (7-18) H 09/01/17 06:10 Creatinine 2.9 mg/dL (0.7-1.3) H 09/01/17 06:10 Creat Clearance w eGFR 21.62 (>60) 09/01/17 06:10 Random Glucose 122 mg/dL (74-106) H D 09/01/17 06:10 Calcium 8.0 mg/dL (8.5-10.1) L 09/01/17 06:10 Total Bilirubin 1.0 mg/dL (0.2-1.0) 09/01/17 06:10 AST 96 U/L (15-37) H D 09/01/17 06:10 ALT 193 U/L (12-78) H D 09/01/17 06:10 Alkaline Phosphatase 124 U/L (45-117) H 09/01/17 06:10 Total Protein 5.9 g/dl (6.4-8.2) L 09/01/17 06:10 Albumin 2.9 g/dl (3.4-5.0) L 09/01/17 06:10 CARDIAC ENZYMES Creatine Kinase 104 IU/L (39-308) 08/30/17 14:12 Troponin I 0.13 ng/ml (0.00-0.05) H D 08/30/17 20:00 Microbiology 08/29/17 19:45 Blood - Peripheral Venous Blood Culture - Preliminary NO GROWTH OBTAINED AFTER 48 HOURS, INCUBATION TO CONTINUE FOR 3 DAYS. 08/29/17 19:30 Blood - Peripheral Venous Blood Culture - Preliminary NO GROWTH OBTAINED AFTER 48 HOURS, INCUBATION TO CONTINUE FOR 3 DAYS. 08/30/17 11:40 Urine For Antigen Detection Legionella Antigen - Final 08/30/17 11:40 Urine For Antigen Detection Streptococcus pneumoniae Antigen (M - Final 08/29/17 16:23 Urine - Urine Clean Catch Urine Culture - Preliminary Staphylococcus Species Group D Strep Or Entero Coccus Assessment: This is a 72 year old male with PMHx of CHF, HTN, hyperlipidemia, CVA vs. TIA, DVT, BPH, CKD who presented to the ED with shortness of breath, dyspnea on exertion, lower extremity weakness Plan: 1) Pulmonary: Acute hypoxic respiratory failure - 2/2 PNA vs. volume overload from CHF - O2 via NC prn. Now on 3L NC 92% - Bipap as needed - Appreciate pulmonary consult 2) ID: Community acquired pneumonia - Continue Ceftriaxone - Afebrile - WBC trending up, continue to monitor - Appreciate ID consult Vegetation on the mitral valve cannot be excluded - Blood cultures with NGTD - Repeat blood cultures - Discussed with ID, continue abx as above - Awaiting callback from cardiology to discuss findings 3) Cardiology: Acute on chronic severe systolic heart failure - ECHO with LV systolic function severely reduced, moderate tricuspid thickening. Moderate to severe tricuspid regurgitation. Severe aortic regurgitation, severe pulmonic regurgitation, severe global hypokinesis, a vegetation on the mitral valve cannot be excluded - Now off dopamine - Awaiting call back from cardiology to discuss life vest - Lasix prn per cardiology - No CATHLEEN/arb given renal failure - Continued discussion with cards re: valve surgery Danelle - Peak - Will benefit from ischemia workup per cards 4) : FABIAN - Cr improving - Continue to monitor - Appreciate nephrology consult 5) F/E/N: - Sodium controlled diet - Monitor electrolytes, replete per renal 6) Prophylaxis: - PT - OOB as tolerated - Heparin 5,000u sq bid 7) Dispo: - Requires continued inpatient care CODE STATUS: FULL CODE Visit type - Emergency Visit Emergency Visit: Yes ED Registration Date: 08/29/17 Care time: The patient presented to the Emergency Department on the above date and was hospitalized for further evaluation of their emergent condition. - New Patient This patient is new to me today: Yes Date on this admission: 09/02/17 - Critical Care Critical Care patient: No
--- NOTE | 2017-09-01 16:37 | EKG ---
Test Reason : Blood Pressure : / mmHG Vent. Rate : 090 BPM Atrial Rate : 090 BPM P-R Int : 194 ms QRS Dur : 126 ms QT Int : 416 ms P-R-T Axes : 080 076 197 degrees QTc Int : 508 ms NORMAL SINUS RHYTHM POSSIBLE LEFT ATRIAL ENLARGEMENT NON-SPECIFIC INTRA-VENTRICULAR CONDUCTION BLOCK CANNOT RULE OUT SEPTAL INFARCT (CITED ON OR BEFORE 29-DEC-2016) T WAVE ABNORMALITY, CONSIDER INFERIOR ISCHEMIA ABNORMAL ECG WHEN COMPARED WITH ECG OF 29-AUG-2017 16:31, PREMATURE ATRIAL COMPLEXES ARE NO LONGER PRESENT Confirmed by SANG SUN MD ([id number]) on 09/01/2017 4:37:43 PM Referred By: JULI ESCOBAR DR Confirmed By:SANG SUN MD
[2017-09-01] MEDS ORDERED: FUROSEMIDE 40 MG/4 ML INJECTABLE VIAL IVPUSH ONE ×2 (18:00)
[2017-09-01] MEDS ORDERED: MUPIROCIN 2% TOPICAL OINTMENT FOR DECOLONIZATION NS SCH (22:00)
[2017-09-01] MEDS ORDERED: CHLORHEXIDINE GLUCONATE 4% CLEANSER FOR DECOLONIZATION TP SCH (22:00)
[2017-09-02] MEDS: ALBUTEROL SO4 2.5/IPRATROPIUM 0.5 INH SOL 3 ML VIAL.NEB. NEB SCH ×3 (06:40→17:31)
--- NOTE | 2017-09-02 06:46 | PN ---
Progress Note, Physician History of Present Illness: No new complaints. - Current Medication List Current Medications: Active Medications Albuterol Sulfate (Ventolin 0.083% Nebulizer Soln -) 1 amp NEB Q4H PRN PRN Reason: SHORT OF BREATH/WHEEZING Albuterol/Ipratropium (Duoneb -) 1 amp NEB QIDR ELIO Last Admin: 09/01/17 23:09 Dose: 1 amp Aspirin (Asa -) 81 mg PO DAILY ELIO Furosemide (Lasix Injection -) 40 mg IVPUSH DAILY ELIO Heparin Sodium (Porcine) (Heparin -) 5,000 unit SQ BID ELIO Last Admin: 09/01/17 22:16 Dose: 5,000 unit CEFTRIAXONE 1 G/50 ML PREMIX (Ceftriaxone 1 Gm-D5w Bag) 50 mls @ 100 mls/hr IVPB DAILY ELIO Dopamine HCl/Dextrose (Dopamine 400 Mg/D5w -) 400,000 mcg in 250 mls @ 8.386 mls/hr IVPB TITR ELIO; 5 MCG/KG/MIN PRN Reason: Protocol Last Admin: 09/01/17 22:15 Dose: Not Given - Objective Vital Signs: Vital Signs Temperature 98.6 F 09/02/17 01:00 Pulse Rate 98 H 09/02/17 01:00 Respiratory Rate 20 09/02/17 01:00 Blood Pressure 137/69 09/02/17 01:00 O2 Sat by Pulse Oximetry (%) 91 L 09/01/17 21:00 Constitutional: Yes: No Distress HENT: Yes: Atraumatic, Normocephalic Cardiovascular: Yes: Other (Prominent carotid upstroke). No: JVD Respiratory: Yes: Diminished (at bases otherwise clear) Gastrointestinal: Yes: Normal Bowel Sounds, Soft. No: Distention, Tenderness Edema: No Neurological: Yes: Alert, Oriented Labs: CBC, BMP 09/01/17 06:10 09/01/17 06:10 INR, PTT INR 1.31 (0.82-1.09) H 08/29/17 16:24 Assessment/Plan 72 yo male with HTN, severe AR, severe MR, chronic systolic heart failure, who was admitted with SOB/FISCHER x 4 days. Patient was on admission with some evidence of fluid overload -> small effusions and orthopnea (though no wt gain or LE edema). However, the BNP (155, 918) seemed elevated out of proportion to the degree of CHF -> may be in part due to renal failure. 08/31/17 Echo: Moderately dilated LV with severely reduced systolic function, severe AR, severe MR, severe MI, moderate biatrial enlargement, moderate aortic root dilatation, and RVSP 44.8 mmHg. Currently being empirically treated for pneumonia given RLL infiltrate and elevated WBC on admission, but no fevers and no other symptoms Urine culture positive for staph & strep or enterococcus No evidence of ACS initially -> now indeterminate trop I in setting of worsening RF -> not diagnostic of ACS Patient was initially on dopamine gtt for hypotension with SBP 80s -> may be secondary to dehydration in setting of severe valvular disease and LV dysfunction (EF now 15%). Currently hemodynamically stable off dopamine gtt Patient was given furosemide 40 mg IV x1 last evening RECS: Currently on furosemide 40 m IV daily. Monitor lytes and renal function with diuresis. Will resume carvedilol 3.125 mg po bid (holding parameters for SBP < 100 mmHg or HR < 50 bpm) No CATHLEEN-I/ARB given renal failure Patient is agreeable to eventually undergoing evaluation for valve surgery. However, he will need right and left cardiac catheterization prior to that and he is currently not a candidate for cath given his renal failure. If his renal function improves or he ends up on hemodialysis, will consider cath at that time. Labs drawn and pending this morning. Management of renal failure as per nephrology. Will follow. Please call with questions.
[2017-09-02 07:20] LABS: BASOPHIL 0.3 % (0-2.0); EOSINOPHIL 0.1 % (0-4.5); MCH 28.6 pg (25.7-33.7); MEAN CELL VOLUME 86.8 fl (80-96); MEAN PLT VOLUME 9.4 fl (7.5-11.1); NEUTROPHILS 90.5 % (42.8-82.8); PLATELET COUNT 234 K/MM3 (134-434); RDW 17.2 % (11.9-15.9); WHITE BLOOD COUNT 13.9 K/mm3 (4.0-10.0)
[2017-09-02 08:20] LABS: ALBUMIN 2.7 g/dl (3.4-5.0); ALK PHOS 104 U/L (45-117); ANION GAP 13 (8-16); CALCIUM 8.3 mg/dL (8.5-10.1); CO2 21 mmol/L (21-32); CREATININE 2.2 mg/dL (0.7-1.3); GLUCOSE,RANDOM 99 mg/dL (74-106); SGOT/AST 68 U/L (15-37); SGPT/ALT 155 U/L (12-78); TOT PROT 5.8 g/dl (6.4-8.2)
[2017-09-02] MEDS: FUROSEMIDE 40 MG/4 ML INJECTABLE VIAL IVPUSH SCH (09:14)
[2017-09-02] MEDS: CARVEDILOL 3.125 MG TABLET (FP) PO SCH ×2 (09:15→21:34)
[2017-09-02] MEDS: HEPARIN NA (PORCINE) 5,000 UNITS/ML 1ML VIAL SQ SCH ×2 (09:15→21:34)
[2017-09-02] MEDS: ASPIRIN 81 MG CHEWABLE TABLETS PO SCH (09:15)
[2017-09-02] MEDS: CEFTRIAXONE 1 G/50 ML PREMIX 50 ML IVPB SCH (09:15)
--- NOTE | 2017-09-02 11:30 | PN ---
Progress Note, Physician History of Present Illness: PULMONARY ALERT,OOB-CHAIR,COMFORTABLE ,SOB IMPROVING. - Current Medication List Current Medications: Active Medications Albuterol Sulfate (Ventolin 0.083% Nebulizer Soln -) 1 amp NEB Q4H PRN PRN Reason: SHORT OF BREATH/WHEEZING Albuterol/Ipratropium (Duoneb -) 1 amp NEB QIDR [facility] Last Admin: 09/02/17 06:40 Dose: 1 amp Aspirin (Asa -) 81 mg PO DAILY [facility] Last Admin: 09/02/17 09:15 Dose: 81 mg Carvedilol (Coreg -) 3.125 mg PO BID [facility] Last Admin: 09/02/17 09:15 Dose: 3.125 mg Furosemide (Lasix Injection -) 40 mg IVPUSH DAILY [facility] Last Admin: 09/02/17 09:14 Dose: 40 mg Heparin Sodium (Porcine) (Heparin -) 5,000 unit SQ BID [facility] Last Admin: 09/02/17 09:15 Dose: 5,000 unit CEFTRIAXONE 1 G/50 ML PREMIX (Ceftriaxone 1 Gm-D5w Bag) 50 mls @ 100 mls/hr IVPB DAILY [facility] Last Admin: 09/02/17 09:15 Dose: 100 mls/hr - Objective Vital Signs: Vital Signs Temperature 98.6 F 09/02/17 01:00 Pulse Rate 95 H 09/02/17 07:00 Respiratory Rate 20 09/02/17 07:00 Blood Pressure 126/57 09/02/17 07:00 O2 Sat by Pulse Oximetry (%) 96 09/02/17 10:42 Constitutional: Yes: Calm, Thin Eyes: Yes: WNL HENT: Yes: WNL Neck: Yes: Supple Cardiovascular: Yes: Regular Rate and Rhythm, S1, S2 Respiratory: Yes: Rales (BIBASILAR CRACKLES) Gastrointestinal: Yes: Normal Bowel Sounds, Soft Extremities: Yes: WNL Edema: No Labs: CBC, BMP 09/02/17 05:19 09/02/17 05:19 INR, PTT INR 1.31 (0.82-1.09) H 08/29/17 16:24 Problem List - Problems (1) Respiratory distress Code(s): R06.00 - DYSPNEA, UNSPECIFIED (2) Shortness of breath Code(s): R06.02 - SHORTNESS OF BREATH (3) CHF (congestive heart failure) Code(s): I50.9 - HEART FAILURE, UNSPECIFIED Qualifiers: Congestive heart failure type: unspecified congestive heart failure type Congestive heart failure chronicity: unspecified congestive heart failure chronicity Qualified Code(s): I50.9 - Heart failure, unspecified (4) HTN (hypertension) Code(s): I10 - ESSENTIAL (PRIMARY) HYPERTENSION Assessment/Plan ASSESSMENT AND PLAN: Acute on Chronic Systolic Heart Failure improving Severe Mitral Regurgitation Tricuspid/Pulmonic Regurgitation r/o Cardiogenic Shock r/o Pneumonia HTN h/o DVT - IV lasix - monitor urine output, creatinine - O2 to keep SpO2 >90% - antibiotics can dc if cultures negative - PO as tolerated - DVT prophylaxis DR DICKINSON
--- NOTE | 2017-09-02 13:37 | PN ---
Progress Note (short form) - Note Progress Note: Renal Follow up for FABIAN on CKD Pt seen and examined at the bedside awake and alert no acute complaints denies any sob, chest pain, N/V/D making urine Vital Signs Temperature 98 F 09/02/17 09:00 Pulse Rate 98 H 09/02/17 09:00 Respiratory Rate 18 09/02/17 09:00 Blood Pressure 145/68 09/02/17 09:00 O2 Sat by Pulse Oximetry (%) 96 09/02/17 10:42 Intake & Output 08/30/17 08/31/17 09/01/17 09/02/17 23:59 23:59 23:59 23:59 Intake Total 50 1426 1110 0 Output Total 239 973 6800 800 Balance -900 626 -2390 -800 Weight 98 lb 9.6 oz 98 lb 9.6 oz 100 lb 6.4 oz 96 lb 6.4 oz NAD on NC O2 RRR, NO M/R Dec Bs at lung bases soft NT/ND No LE edema CBC, BMP 09/02/17 05:19 09/02/17 05:19 Laboratory Tests 09/02/17 05:19 Calcium 8.3 L Albumin 2.7 L Current Medications Albuterol Sulfate (Ventolin 0.083% Nebulizer Soln -) 1 amp NEB Q4H PRN PRN Reason: SHORT OF BREATH/WHEEZING Albuterol/Ipratropium (Duoneb -) 1 amp NEB QIDR [facility] Last Admin: 09/02/17 11:40 Dose: 1 amp Aspirin (Asa -) 81 mg PO DAILY [facility] Last Admin: 09/02/17 09:15 Dose: 81 mg Carvedilol (Coreg -) 3.125 mg PO BID [facility] Last Admin: 09/02/17 09:15 Dose: 3.125 mg Furosemide (Lasix Injection -) 40 mg IVPUSH DAILY [facility] Last Admin: 09/02/17 09:14 Dose: 40 mg Heparin Sodium (Porcine) (Heparin -) 5,000 unit SQ BID [facility] Last Admin: 09/02/17 09:15 Dose: 5,000 unit CEFTRIAXONE 1 G/50 ML PREMIX (Ceftriaxone 1 Gm-D5w Bag) 50 mls @ 100 mls/hr IVPB DAILY [facility] Last Admin: 09/02/17 09:15 Dose: 100 mls/hr This is a 72 year old Gentleman with PMhx of CKD Stage 3 (baseline Cr 1.5-1.8), Hx of B/L hydronephrosis secondary to BPH now s/p TURP, Hypertension, CHF/ Valvuar disease, Hx of DVT who presents to the ED with complaints of SOB, LE weakness with viral prodrome and found to have FABIAN with Cr of 2.5-> 3.7. #Acute Renal Failure Renal function is improving toward baseline continue IV lasix (now once daily) trend BUN/Cr, urine output and electrolytes #CHF Cardiology following PRN Lasix off dopamine gtt No CATHLEEN/ARB given renal injury #Sepsis on Ceftiraxone clinically improved Thank you Will follow Flex Lo DO Problem List - Problems (1) Acute renal failure Code(s): N17.9 - ACUTE KIDNEY FAILURE, UNSPECIFIED Qualifiers: Acute renal failure type: unspecified Qualified Code(s): N17.9 - Acute kidney failure, unspecified (2) Respiratory distress Code(s): R06.00 - DYSPNEA, UNSPECIFIED (3) Shortness of breath Code(s): R06.02 - SHORTNESS OF BREATH (4) CHF (congestive heart failure) Code(s): I50.9 - HEART FAILURE, UNSPECIFIED Qualifiers: Congestive heart failure type: unspecified congestive heart failure type Congestive heart failure chronicity: unspecified congestive heart failure chronicity Qualified Code(s): I50.9 - Heart failure, unspecified (5) Sepsis Code(s): A41.9 - SEPSIS, UNSPECIFIED ORGANISM
--- NOTE | 2017-09-02 15:30 | PN ---
Progress Note (short form) - Note Progress Note: Subjective: The patient was seen and examined at the bedside, he states she was feeling short of breath this morning wile sitting in the chair Current Medications Generic Name Dose Route Start Last Admin Trade Name Ronaldo PRN Reason Stop Dose Admin Albuterol Sulfate 1 amp 08/30/17 17:40 08/31/17 03:44 Ventolin 0.083% Nebulizer Soln - NEB 1 amp Q4H PRN Administration SHORT OF BREATH/WHEEZING Albuterol/Ipratropium 1 amp 08/30/17 18:00 09/01/17 11:36 Duoneb - NEB Not Given QIDR ELIO Aspirin 81 mg 08/30/17 10:00 09/01/17 11:33 Asa - PO 81 mg DAILY ELIO Administration Chlorhexidine Gluconate 1 applic 08/30/17 22:00 08/31/17 22:19 Hibiclens For Decolonization - TP 1 applic HS ELIO Administration Furosemide 40 mg 09/01/17 10:00 09/01/17 11:57 Lasix Injection - IVPUSH 40 mg DAILY ELIO Administration Furosemide 40 mg 09/01/17 18:00 Lasix Injection - IVPUSH 09/01/17 18:01 ONCE ONE Heparin Sodium (Porcine) 5,000 unit 08/29/17 22:00 09/01/17 11:34 Heparin - SQ 5,000 unit BID ELIO Administration Dopamine HCl/Dextrose 250 mls @ 8.386 mls/hr 08/30/17 19:00 09/01/17 09:40 Dopamine 400 Mg/D5w - IVPB 0 mcg/kg/min TITR ELIO 0 mls/hr Protocol Titration 5 MCG/KG/MIN CEFTRIAXONE 1 G/50 ML PREMIX 50 mls @ 100 mls/hr 09/01/17 11:00 09/01/17 11: 57 Ceftriaxone 1 Gm-D5w Bag IVPB 100 mls/hr DAILY ELIO Administration Mupirocin 1 applic 08/30/17 22:00 09/01/17 11:34 Bactroban Ointment (For Decolonization) - NS 09/04/17 21:59 1 applic BID ELIO Administration Objective: Vital Signs Period Temp Pulse Resp BP Sys/Martinez Pulse Ox Last 24 Hr 98 F-98.6 F 90-98 18-20 125-147/57-69 91-96 Physical Exam: General: NAD, A&Ox3 Lungs: Basilar rales Heart: RRR, S1S2, +systolic murmur Abd: Soft, non-tender, non-distended. Normoactive bowel sounds Ext: Warm, well-perfused. 2+ DP/PT bilaterally. No edema CBCD WBC 13.9 K/mm3 (4.0-10.0) H 09/02/17 05:19 RBC 4.21 M/mm3 (4.00-5.60) 09/02/17 05:19 Hgb 12.0 GM/dL (11.7-16.9) 09/02/17 05:19 Hct 36.5 % (35.4-49) 09/02/17 05:19 MCV 86.8 fl (80-96) 09/02/17 05:19 MCHC 33.0 g/dl (32.0-35.9) 09/02/17 05:19 RDW 17.2 % (11.9-15.9) H 09/02/17 05:19 Plt Count 234 K/MM3 (134-434) 09/02/17 05:19 MPV 9.4 fl (7.5-11.1) 09/02/17 05:19 CMP Sodium 139 mmol/L (136-145) 09/02/17 05:19 Potassium 3.4 mmol/L (3.5-5.1) L 09/02/17 05:19 Chloride 105 mmol/L (98-107) 09/02/17 05:19 Carbon Dioxide 21 mmol/L (21-32) 09/02/17 05:19 Anion Gap 13 (8-16) 09/02/17 05:19 BUN 62 mg/dL (7-18) H D 09/02/17 05:19 Creatinine 2.2 mg/dL (0.7-1.3) H D 09/02/17 05:19 Creat Clearance w eGFR 29.74 (>60) 09/02/17 05:19 Random Glucose 99 mg/dL (74-106) 09/02/17 05:19 Calcium 8.3 mg/dL (8.5-10.1) L 09/02/17 05:19 Total Bilirubin 1.0 mg/dL (0.2-1.0) 09/02/17 05:19 AST 68 U/L (15-37) H D 09/02/17 05:19 ALT 155 U/L (12-78) H 09/02/17 05:19 Alkaline Phosphatase 104 U/L (45-117) 09/02/17 05:19 Total Protein 5.8 g/dl (6.4-8.2) L 09/02/17 05:19 Albumin 2.7 g/dl (3.4-5.0) L 09/02/17 05:19 CARDIAC ENZYMES Creatine Kinase 104 IU/L (39-308) 08/30/17 14:12 Troponin I 0.13 ng/ml (0.00-0.05) H D 08/30/17 20:00 Microbiology 08/29/17 19:45 Blood - Peripheral Venous Blood Culture - Preliminary NO GROWTH OBTAINED AFTER 72 HOURS, INCUBATION TO CONTINUE FOR 2 DAYS. 08/29/17 19:30 Blood - Peripheral Venous Blood Culture - Preliminary NO GROWTH OBTAINED AFTER 72 HOURS, INCUBATION TO CONTINUE FOR 2 DAYS. 08/29/17 16:23 Urine - Urine Clean Catch Urine Culture - Final Staphylococcus Epidermidis Enterococcus Faecalis 08/30/17 11:40 Urine For Antigen Detection Legionella Antigen - Final 08/30/17 11:40 Urine For Antigen Detection Streptococcus pneumoniae Antigen (M - Final Assessment: This is a 72 year old male with PMHx of CHF, HTN, hyperlipidemia, CVA vs. TIA, DVT, BPH, CKD who presented to the ED with shortness of breath, dyspnea on exertion, lower extremity weakness Plan: 1) Pulmonary: Acute hypoxic respiratory failure - 2/2 PNA vs. volume overload from CHF - O2 via NC prn. Now on 3L NC 92% - Bipap as needed - Appreciate pulmonary consult 2) ID: Community acquired pneumonia - Continue Ceftriaxone - Afebrile - WBC trending up, continue to monitor - Appreciate ID consult Vegetation on the mitral valve cannot be excluded - Blood cultures with NGTD - Repeat blood cultures - Discussed with ID, continue abx as above - Cards states mitral valve was not visualized and therefore vegetation cannot be excluded, however, patient afebrile and blood cultures negative, so no further workup needed at this time 3) Cardiology: Acute on chronic severe systolic heart failure - ECHO with LV systolic function severely reduced, moderate tricuspid thickening. Moderate to severe tricuspid regurgitation. Severe aortic regurgitation, severe pulmonic regurgitation, severe global hypokinesis, a vegetation on the mitral valve cannot be excluded - Now off dopamine - Per cardiology, Dr. Schwartz, he is NOT recommending Life Vest for the patient at this time - Lasix 40mg IVP daily - No CATHLEEN/arb given renal failure - Continued discussion with cards re: valve surgery Tropinenmia - Peak 0.19 - Will benefit from ischemia workup per cards 4) : FABIAN - Cr improving, 2.2 today - Continue to monitor - Appreciate nephrology consult 5) F/E/N: - Sodium controlled diet - Monitor electrolytes, replete per renal 6) Prophylaxis: - PT - OOB as tolerated - Heparin 5,000u sq bid 7) Dispo: - Requires continued inpatient care CODE STATUS: FULL CODE Visit type - Emergency Visit Emergency Visit: Yes ED Registration Date: 08/29/17 Care time: The patient presented to the Emergency Department on the above date and was hospitalized for further evaluation of their emergent condition. - New Patient This patient is new to me today: No - Critical Care Critical Care patient: No
--- NOTE | 2017-09-02 17:10 | PN ---
Progress Note, Physician History of Present Illness: Awake, alert Feels much better Breathing improved Afebrile WBC improved - Current Medication List Current Medications: Active Medications Albuterol Sulfate (Ventolin 0.083% Nebulizer Soln -) 1 amp NEB Q4H PRN PRN Reason: SHORT OF BREATH/WHEEZING Albuterol/Ipratropium (Duoneb -) 1 amp NEB QIDR [facility] Last Admin: 09/02/17 11:40 Dose: 1 amp Aspirin (Asa -) 81 mg PO DAILY [facility] Last Admin: 09/02/17 09:15 Dose: 81 mg Carvedilol (Coreg -) 3.125 mg PO BID [facility] Last Admin: 09/02/17 09:15 Dose: 3.125 mg Furosemide (Lasix Injection -) 40 mg IVPUSH DAILY [facility] Last Admin: 09/02/17 09:14 Dose: 40 mg Heparin Sodium (Porcine) (Heparin -) 5,000 unit SQ BID [facility] Last Admin: 09/02/17 09:15 Dose: 5,000 unit CEFTRIAXONE 1 G/50 ML PREMIX (Ceftriaxone 1 Gm-D5w Bag) 50 mls @ 100 mls/hr IVPB DAILY [facility] Last Admin: 09/02/17 09:15 Dose: 100 mls/hr - Objective Vital Signs: Vital Signs Temperature 98 F 09/02/17 09:00 Pulse Rate 98 H 09/02/17 09:00 Respiratory Rate 18 09/02/17 09:00 Blood Pressure 145/68 09/02/17 09:00 O2 Sat by Pulse Oximetry (%) 96 09/02/17 10:42 Constitutional: Yes: No Distress, Cachectic Cardiovascular: Yes: Regular Rate and Rhythm, S1, S2 Respiratory: Yes: Diminished Gastrointestinal: Yes: Normal Bowel Sounds, Soft. No: Tenderness Edema: No Labs: CBC, BMP 09/02/17 05:19 09/02/17 05:19 INR, PTT INR 1.31 (0.82-1.09) H 08/29/17 16:24 Assessment/Plan RLL pneumonia Decompensated CHF Acute on chronic renal failure Elevated LFTs ? passive congestion - improved Continue ceftriaxone
[2017-09-03] MEDS: ALBUTEROL SO4 2.5/IPRATROPIUM 0.5 INH SOL 3 ML VIAL.NEB. NEB SCH ×4 (06:25→17:22)
[2017-09-03 07:36] LABS: BASOPHIL 0.2 % (0-2.0); EOSINOPHIL 0.8 % (0-4.5); MCH 28.2 pg (25.7-33.7); MCHC 32.2 g/dl (32.0-35.9); MEAN CELL VOLUME 87.6 fl (80-96); MEAN PLT VOLUME 9.3 fl (7.5-11.1); NEUTROPHILS 89.2 % (42.8-82.8); PLATELET COUNT 246 K/MM3 (134-434); RDW 17.2 % (11.9-15.9); WHITE BLOOD COUNT 13.2 K/mm3 (4.0-10.0)
[2017-09-03 08:40] LABS: ALBUMIN 2.6 g/dl (3.4-5.0); ANION GAP 12 (8-16); CALCIUM 8.3 mg/dL (8.5-10.1); CO2 21 mmol/L (21-32); GLUCOSE,RANDOM 128 mg/dL (74-106); SGPT/ALT 136 U/L (12-78)
[2017-09-03 08:43] LABS: ALK PHOS 94 U/L (45-117); BILIRUBIN,TOTAL 0.9 mg/dL (0.2-1.0); CREATININE 2.2 mg/dL (0.7-1.3); SGOT/AST 51 U/L (15-37); TOT PROT 5.9 g/dl (6.4-8.2)
[2017-09-03] MEDS: ASPIRIN 81 MG CHEWABLE TABLETS PO SCH (09:16)
[2017-09-03] MEDS: FUROSEMIDE 40 MG/4 ML INJECTABLE VIAL IVPUSH SCH (09:17)
[2017-09-03] MEDS: HEPARIN NA (PORCINE) 5,000 UNITS/ML 1ML VIAL SQ SCH ×2 (09:17→22:06)
[2017-09-03] MEDS: CEFTRIAXONE 1 G/50 ML PREMIX 50 ML IVPB SCH (09:17)
[2017-09-03] MEDS: CARVEDILOL 3.125 MG TABLET (FP) PO SCH ×2 (09:17→22:06)
--- NOTE | 2017-09-03 09:40 | PN ---
Progress Note (short form) - Note Progress Note: Subjective: The patient was seen and examined at the bedside, he reports having some heavy breathing overnight but is feeling better now Current Medications Generic Name Dose Route Start Last Admin Trade Name Ronaldo PRN Reason Stop Dose Admin Albuterol Sulfate 1 amp 09/01/17 15:59 Ventolin 0.083% Nebulizer Soln - NEB Q4H PRN SHORT OF BREATH/WHEEZING Albuterol/Ipratropium 1 amp 09/01/17 18:00 09/03/17 06:25 Duoneb - NEB Not Given QIDR ELIO Aspirin 81 mg 09/02/17 10:00 09/03/17 09:16 Asa - PO 81 mg DAILY [facility] Administration Carvedilol 3.125 mg 09/02/17 07:00 09/03/17 09:17 Coreg - PO 3.125 mg BID [facility] Administration Furosemide 40 mg 09/02/17 10:00 09/03/17 09:17 Lasix Injection - IVPUSH 40 mg DAILY [facility] Administration Heparin Sodium (Porcine) 5,000 unit 09/01/17 22:00 09/03/17 09:17 Heparin - SQ 5,000 unit BID [facility] Administration CEFTRIAXONE 1 G/50 ML PREMIX 50 mls @ 100 mls/hr 09/02/17 10:00 09/03/17 09: 17 Ceftriaxone 1 Gm-D5w Bag IVPB 100 mls/hr DAILY [facility] Administration Objective: Vital Signs Period Temp Pulse Resp BP Sys/Martinez Pulse Ox Last 24 Hr 97.6 F-98 F 90-100 20-20 128-135/60-70 95-97 Physical Exam: General: NAD, A&Ox3 Lungs: Decreased breath sounds at the bases Heart: RRR, S1S2, +systolic murmur Abd: Soft, non-tender, non-distended. Normoactive bowel sounds Ext: Warm, well-perfused. 2+ DP/PT bilaterally. No edema CBCD WBC 13.2 K/mm3 (4.0-10.0) H 09/03/17 06:00 RBC 4.25 M/mm3 (4.00-5.60) 09/03/17 06:00 Hgb 12.0 GM/dL (11.7-16.9) 09/03/17 06:00 Hct 37.3 % (35.4-49) 09/03/17 06:00 MCV 87.6 fl (80-96) 09/03/17 06:00 MCHC 32.2 g/dl (32.0-35.9) 09/03/17 06:00 RDW 17.2 % (11.9-15.9) H 09/03/17 06:00 Plt Count 246 K/MM3 (134-434) 09/03/17 06:00 MPV 9.3 fl (7.5-11.1) 09/03/17 06:00 CMP Sodium 137 mmol/L (136-145) 09/03/17 06:00 Potassium 3.7 mmol/L (3.5-5.1) 09/03/17 06:00 Chloride 104 mmol/L (98-107) 09/03/17 06:00 Carbon Dioxide 21 mmol/L (21-32) 09/03/17 06:00 Anion Gap 12 (8-16) 09/03/17 06:00 BUN 67 mg/dL (7-18) H 09/03/17 06:00 Creatinine 2.2 mg/dL (0.7-1.3) H 09/03/17 06:00 Creat Clearance w eGFR 29.74 (>60) 09/03/17 06:00 Random Glucose 128 mg/dL (74-106) H D 09/03/17 06:00 Calcium 8.3 mg/dL (8.5-10.1) L 09/03/17 06:00 Total Bilirubin 0.9 mg/dL (0.2-1.0) 09/03/17 06:00 AST 51 U/L (15-37) H D 09/03/17 06:00 ALT 136 U/L (12-78) H 09/03/17 06:00 Alkaline Phosphatase 94 U/L (45-117) 09/03/17 06:00 Total Protein 5.9 g/dl (6.4-8.2) L 09/03/17 06:00 Albumin 2.6 g/dl (3.4-5.0) L 09/03/17 06:00 CARDIAC ENZYMES Creatine Kinase 104 IU/L (39-308) 08/30/17 14:12 Troponin I 0.13 ng/ml (0.00-0.05) H D 08/30/17 20:00 Microbiology 09/01/17 20:15 Blood - Peripheral Venous Blood Culture - Preliminary NO GROWTH OBTAINED AFTER 24 HOURS, INCUBATION TO CONTINUE FOR 4 DAYS. 09/01/17 20:15 Blood - Peripheral Venous Blood Culture - Preliminary NO GROWTH OBTAINED AFTER 24 HOURS, INCUBATION TO CONTINUE FOR 4 DAYS. 08/29/17 19:45 Blood - Peripheral Venous Blood Culture - Preliminary NO GROWTH OBTAINED AFTER 96 HOURS, INCUBATION TO CONTINUE FOR 1 DAYS. 08/29/17 19:30 Blood - Peripheral Venous Blood Culture - Preliminary NO GROWTH OBTAINED AFTER 96 HOURS, INCUBATION TO CONTINUE FOR 1 DAYS. 08/29/17 16:23 Urine - Urine Clean Catch Urine Culture - Final Staphylococcus Epidermidis Enterococcus Faecalis 08/30/17 11:40 Urine For Antigen Detection Legionella Antigen - Final 08/30/17 11:40 Urine For Antigen Detection Streptococcus pneumoniae Antigen (M - Final Assessment: This is a 72 year old male with PMHx of CHF, HTN, hyperlipidemia, CVA vs. TIA, DVT, BPH, CKD who presented to the ED with shortness of breath, dyspnea on exertion, lower extremity weakness Plan: 1) Pulmonary: Acute hypoxic respiratory failure - 2/2 PNA vs. volume overload from CHF - O2 via NC prn. Now on 3L NC 92% - Bipap as needed - Appreciate pulmonary consult 2) ID: Community acquired pneumonia - Continue Ceftriaxone - Afebrile - WBC trending down - Appreciate ID consult Vegetation on the mitral valve cannot be excluded - Blood cultures with NGTD - Repeat blood cultures - Discussed with ID, continue abx as above - Cards states mitral valve was not visualized and therefore vegetation cannot be excluded, however, patient afebrile and blood cultures negative, so no further workup needed at this time 3) Cardiology: Acute on chronic severe systolic heart failure - ECHO with LV systolic function severely reduced, moderate tricuspid thickening. Moderate to severe tricuspid regurgitation. Severe aortic regurgitation, severe pulmonic regurgitation, severe global hypokinesis, a vegetation on the mitral valve cannot be excluded - Off dopamine - Per cardiology, Dr. Schwartz, he is NOT recommending Life Vest for the patient at this time - Lasix 40mg IVP daily - No CATHLEEN/arb given renal failure - Will need left and right heart cath once kidney function improves - Continued discussion with cards re: valve surgery Tropinenmia - Peak 0.19 - Will benefit from ischemia workup per cards 4) : FABIAN - Cr stable, 2.2 today - Continue to monitor - Appreciate nephrology consult 5) F/E/N: - Sodium controlled diet - Monitor electrolytes, replete per renal 6) Prophylaxis: - PT - OOB as tolerated - Heparin 5,000u sq bid 7) Dispo: - Requires continued inpatient care CODE STATUS: FULL CODE Visit type - Emergency Visit Emergency Visit: Yes ED Registration Date: 08/29/17 Care time: The patient presented to the Emergency Department on the above date and was hospitalized for further evaluation of their emergent condition. - New Patient This patient is new to me today: No - Critical Care Critical Care patient: No
--- NOTE | 2017-09-03 15:53 | PN ---
Progress Note (short form) - Note Progress Note: PULMONARY Breathing continues to improve. No chest pain. No fevers or chills. Last Vital Signs Temp Pulse Resp BP Pulse Ox 98.5 F 93 H 18 122/61 96 09/03/17 14:54 09/03/17 14:54 09/03/17 10:00 09/03/17 14:54 09/03/17 11:23 Intake & Output 08/31/17 09/01/17 09/02/17 09/03/17 23:59 23:59 23:59 23:59 Intake Total 1426 1110 0 520 Output Total 800 3500 1600 1700 Balance 626 -0550 -1600 -1180 Weight 98 lb 9.6 oz 100 lb 6.4 oz 96 lb 6.4 oz Gen: NAD at rest Heart: RRR Lung: decreased breath sounds right base, scattered rales Abd: soft, nontender Ext: no edema CBC, BMP 09/03/17 06:00 09/03/17 06:00 Active Medications Albuterol Sulfate (Ventolin 0.083% Nebulizer Soln -) 1 amp NEB Q4H PRN PRN Reason: SHORT OF BREATH/WHEEZING Albuterol/Ipratropium (Duoneb -) 1 amp NEB QIDR [facility] Last Admin: 09/03/17 11:24 Dose: 1 amp Aspirin (Asa -) 81 mg PO DAILY [facility] Last Admin: 09/03/17 09:16 Dose: 81 mg Carvedilol (Coreg -) 3.125 mg PO BID [facility] Last Admin: 09/03/17 09:17 Dose: 3.125 mg Furosemide (Lasix Injection -) 40 mg IVPUSH DAILY [facility] Last Admin: 09/03/17 09:17 Dose: 40 mg Heparin Sodium (Porcine) (Heparin -) 5,000 unit SQ BID [facility] Last Admin: 09/03/17 09:17 Dose: 5,000 unit CEFTRIAXONE 1 G/50 ML PREMIX (Ceftriaxone 1 Gm-D5w Bag) 50 mls @ 100 mls/hr IVPB DAILY [facility] Last Admin: 09/03/17 09:17 Dose: 100 mls/hr A/P Acute on Chronic Systolic Heart Failure Severe Mitral Regurgitation Tricuspid/Pulmonic Regurgitation HTN h/o DVT - continue IV lasix, will give additional dose this PM - monitor urine output, creatinine - O2 to keep SpO2 >90% - on empiric antibiotics - can d/c antibiotics if cultures negative as clinical picture more consistent with decompensated heart failure - PO as tolerated - DVT prophylaxis
[2017-09-03] MEDS ORDERED: FUROSEMIDE 40 MG/4 ML INJECTABLE VIAL IVPUSH ONE (18:00)
--- NOTE | 2017-09-03 19:05 | PN ---
Progress Note (short form) - Note Progress Note: coverage for dr rojo Acute on chronic renal fail s/p sepsis s/p HF underlying CKD stage 3 (baseline 1.5-1.8) h/o B/L hydronephrosis due to BPH, managed by TURP HTN HF/Valvular diz H/o DVT *s/p episode of HF exacerbation overnight felt better after a lasix dose was given Active Medications Albuterol Sulfate (Ventolin 0.083% Nebulizer Soln -) 1 amp NEB Q4H PRN PRN Reason: SHORT OF BREATH/WHEEZING Albuterol/Ipratropium (Duoneb -) 1 amp NEB QIDR [facility] Last Admin: 09/03/17 17:22 Dose: 1 amp Aspirin (Asa -) 81 mg PO DAILY [facility] Last Admin: 09/03/17 09:16 Dose: 81 mg Carvedilol (Coreg -) 3.125 mg PO BID [facility] Last Admin: 09/03/17 09:17 Dose: 3.125 mg Furosemide (Lasix Injection -) 40 mg IVPUSH DAILY [facility] Last Admin: 09/03/17 09:17 Dose: 40 mg Heparin Sodium (Porcine) (Heparin -) 5,000 unit SQ BID [facility] Last Admin: 09/03/17 09:17 Dose: 5,000 unit CEFTRIAXONE 1 G/50 ML PREMIX (Ceftriaxone 1 Gm-D5w Bag) 50 mls @ 100 mls/hr IVPB DAILY [facility] Last Admin: 09/03/17 09:17 Dose: 100 mls/hr Last Vital Signs Temp Pulse Resp BP Pulse Ox 98.5 F 93 H 18 122/61 96 09/03/17 14:54 09/03/17 14:54 09/03/17 10:00 09/03/17 14:54 09/03/17 11:23 CBC, BMP 09/03/17 06:00 09/03/17 06:00 #Acute Renal Failure on Chronic Renal function is improving continue IV lasix (now once daily) trend BUN/Cr, urine output and electrolytes #CHF Cardiology following s/p Sepsis on Ceftiraxone clinically improving
[2017-09-04] MEDS ORDERED: ALPRAZolam 0.25 MG TABLET PO ONE (02:55)
[2017-09-04] MEDS: ALBUTEROL SO4 2.5/IPRATROPIUM 0.5 INH SOL 3 ML VIAL.NEB. NEB SCH ×5 (06:38→23:04)
[2017-09-04 08:06] LABS: MCH 28.1 pg (25.7-33.7); MCHC 32.1 g/dl (32.0-35.9); MEAN CELL VOLUME 87.7 fl (80-96); MEAN PLT VOLUME 9.4 fl (7.5-11.1); PLATELET COUNT 247 K/MM3 (134-434); RDW 16.6 % (11.9-15.9); WHITE BLOOD COUNT 11.9 K/mm3 (4.0-10.0)
[2017-09-04 09:23] LABS: ALBUMIN 2.5 g/dl (3.4-5.0); ALK PHOS 91 U/L (45-117); ANION GAP 16 (8-16); BILIRUBIN,TOTAL 0.7 mg/dL (0.2-1.0); CALCIUM 8.3 mg/dL (8.5-10.1); CO2 20 mmol/L (21-32); CREATININE 2.6 mg/dL (0.7-1.3); GLUCOSE,RANDOM 107 mg/dL (74-106); MAGNESIUM 2.8 mg/dL (1.8-2.4); SGOT/AST 32 U/L (15-37); SGPT/ALT 108 U/L (12-78); TOT PROT 5.6 g/dl (6.4-8.2)
--- NOTE | 2017-09-04 09:44 | PN ---
Progress Note (short form) - Note Progress Note: Subjective: The patient was seen and examined at the bedside, he states he is feeling better today and that his breathing has improved Current Medications Generic Name Dose Route Start Last Admin Trade Name Ronaldo PRN Reason Stop Dose Admin Albuterol Sulfate 1 amp 09/01/17 15:59 Ventolin 0.083% Nebulizer Soln - NEB Q4H PRN SHORT OF BREATH/WHEEZING Albuterol/Ipratropium 1 amp 09/01/17 18:00 09/04/17 06:38 Duoneb - NEB 1 amp QIDR [facility]IO Administration Aspirin 81 mg 09/02/17 10:00 09/03/17 09:16 Asa - PO 81 mg DAILY [facility] Administration Carvedilol 3.125 mg 09/02/17 07:00 09/03/17 22:06 Coreg - PO 3.125 mg BID [facility] Administration Furosemide 40 mg 09/02/17 10:00 09/03/17 09:17 Lasix Injection - IVPUSH 40 mg DAILY [facility] Administration Heparin Sodium (Porcine) 5,000 unit 09/01/17 22:00 09/03/17 22:06 Heparin - SQ 5,000 unit BID [facility] Administration CEFTRIAXONE 1 G/50 ML PREMIX 50 mls @ 100 mls/hr 09/02/17 10:00 09/03/17 09: 17 Ceftriaxone 1 Gm-D5w Bag IVPB 100 mls/hr DAILY [facility] Administration Objective: Vital Signs Period Temp Pulse Resp BP Sys/Martinez Pulse Ox Last 24 Hr 97.4 F-98.5 F 80-101 18-19 122-134/54-67 96-97 Physical Exam: General: NAD, A&Ox3 Lungs: Decreased breath sounds at the bases Heart: RRR, S1S2, +systolic murmur Abd: Soft, non-tender, non-distended. Normoactive bowel sounds Ext: Warm, well-perfused. 2+ DP/PT bilaterally. No edema CBCD WBC 11.9 K/mm3 (4.0-10.0) H 09/04/17 06:15 RBC 4.00 M/mm3 (4.00-5.60) 09/04/17 06:15 Hgb 11.2 GM/dL (11.7-16.9) L 09/04/17 06:15 Hct 35.1 % (35.4-49) L 09/04/17 06:15 MCV 87.7 fl (80-96) 09/04/17 06:15 MCHC 32.1 g/dl (32.0-35.9) 09/04/17 06:15 RDW 16.6 % (11.9-15.9) H 09/04/17 06:15 Plt Count 247 K/MM3 (134-434) 09/04/17 06:15 MPV 9.4 fl (7.5-11.1) 09/04/17 06:15 CMP Sodium 137 mmol/L (136-145) 09/03/17 06:00 Potassium 3.7 mmol/L (3.5-5.1) 09/03/17 06:00 Chloride 104 mmol/L (98-107) 09/03/17 06:00 Carbon Dioxide 21 mmol/L (21-32) 09/03/17 06:00 Anion Gap 12 (8-16) 09/03/17 06:00 BUN 67 mg/dL (7-18) H 09/03/17 06:00 Creatinine 2.2 mg/dL (0.7-1.3) H 09/03/17 06:00 Creat Clearance w eGFR 29.74 (>60) 09/03/17 06:00 Random Glucose 128 mg/dL (74-106) H D 09/03/17 06:00 Calcium 8.3 mg/dL (8.5-10.1) L 09/03/17 06:00 Total Bilirubin 0.9 mg/dL (0.2-1.0) 09/03/17 06:00 AST 51 U/L (15-37) H D 09/03/17 06:00 ALT 136 U/L (12-78) H 09/03/17 06:00 Alkaline Phosphatase 94 U/L (45-117) 09/03/17 06:00 Total Protein 5.9 g/dl (6.4-8.2) L 09/03/17 06:00 Albumin 2.6 g/dl (3.4-5.0) L 09/03/17 06:00 CARDIAC ENZYMES Creatine Kinase 104 IU/L (39-308) 08/30/17 14:12 Troponin I 0.13 ng/ml (0.00-0.05) H D 08/30/17 20:00 Microbiology 09/01/17 20:15 Blood - Peripheral Venous Blood Culture - Preliminary NO GROWTH OBTAINED AFTER 48 HOURS, INCUBATION TO CONTINUE FOR 3 DAYS. 09/01/17 20:15 Blood - Peripheral Venous Blood Culture - Preliminary NO GROWTH OBTAINED AFTER 48 HOURS, INCUBATION TO CONTINUE FOR 3 DAYS. 08/29/17 19:45 Blood - Peripheral Venous Blood Culture - Final NO GROWTH AFTER 5 DAYS INCUBATION 08/29/17 19:30 Blood - Peripheral Venous Blood Culture - Final NO GROWTH AFTER 5 DAYS INCUBATION 08/29/17 16:23 Urine - Urine Clean Catch Urine Culture - Final Staphylococcus Epidermidis Enterococcus Faecalis 08/30/17 11:40 Urine For Antigen Detection Legionella Antigen - Final 08/30/17 11:40 Urine For Antigen Detection Streptococcus pneumoniae Antigen (M - Final Assessment: This is a 72 year old male with PMHx of CHF, HTN, hyperlipidemia, CVA vs. TIA, DVT, BPH, CKD who presented to the ED with shortness of breath, dyspnea on exertion, lower extremity weakness Plan: 1) Pulmonary: Acute hypoxic respiratory failure - 2/2 PNA vs. volume overload from CHF - O2 via NC prn. Now on 3L NC 92% - Bipap as needed - Appreciate pulmonary consult 2) ID: Community acquired pneumonia - WBC continue to trend down 11.9 today - Continue Ceftriaxone - Appreciate ID consult Vegetation on the mitral valve cannot be excluded - Blood cultures with NGTD - Repeat blood cultures - Discussed with ID, continue abx as above - Cards states mitral valve was not visualized and therefore vegetation cannot be excluded, however, patient afebrile and blood cultures negative, so no further workup needed at this time 3) Cardiology: Acute on chronic severe systolic heart failure - ECHO with LV systolic function severely reduced, moderate tricuspid thickening. Moderate to severe tricuspid regurgitation. Severe aortic regurgitation, severe pulmonic regurgitation, severe global hypokinesis, a vegetation on the mitral valve cannot be excluded - Per cardiology, Dr. Schwartz, he is NOT recommending Life Vest for the patient at this time - Lasix 40mg IVP daily - No CATHLEEN/arb given renal failure - Will need left and right heart cath once kidney function improves - Continued discussion with cards re: valve surgery Tropinenmia - Peak 0.19 - Cardiac workup per cards 4) : FABIAN on CKD stage 3 - Cr stable, 2.2 today - Continue to monitor - Appreciate nephrology consult 5) F/E/N: - Sodium controlled diet - Monitor electrolytes, replete per renal 6) Prophylaxis: - PT - OOB as tolerated - Heparin 5,000u sq bid 7) Dispo: - Requires continued inpatient care CODE STATUS: FULL CODE Visit type - Emergency Visit Emergency Visit: Yes ED Registration Date: 08/29/17 Care time: The patient presented to the Emergency Department on the above date and was hospitalized for further evaluation of their emergent condition. - New Patient This patient is new to me today: No - Critical Care Critical Care patient: No
[2017-09-04] MEDS: ASPIRIN 81 MG CHEWABLE TABLETS PO SCH (09:45)
[2017-09-04] MEDS: FUROSEMIDE 40 MG/4 ML INJECTABLE VIAL IVPUSH SCH (09:46)
[2017-09-04] MEDS: HEPARIN NA (PORCINE) 5,000 UNITS/ML 1ML VIAL SQ SCH ×2 (09:46→23:00)
[2017-09-04] MEDS: CARVEDILOL 3.125 MG TABLET (FP) PO SCH ×2 (09:46→23:00)
[2017-09-04] MEDS: CEFTRIAXONE 1 G/50 ML PREMIX 50 ML IVPB SCH (10:01)
--- NOTE | 2017-09-04 10:21 | PN ---
Progress Note, Physician History of Present Illness: No new complaints Still SOB at times - Current Medication List Current Medications: Active Medications Albuterol Sulfate (Ventolin 0.083% Nebulizer Soln -) 1 amp NEB Q4H PRN PRN Reason: SHORT OF BREATH/WHEEZING Albuterol/Ipratropium (Duoneb -) 1 amp NEB QIDR [facility] Last Admin: 09/04/17 06:38 Dose: 1 amp Aspirin (Asa -) 81 mg PO DAILY [facility] Last Admin: 09/04/17 09:45 Dose: 81 mg Carvedilol (Coreg -) 3.125 mg PO BID [facility] Last Admin: 09/04/17 09:46 Dose: 3.125 mg Furosemide (Lasix Injection -) 40 mg IVPUSH DAILY [facility] Last Admin: 09/04/17 09:46 Dose: 40 mg Heparin Sodium (Porcine) (Heparin -) 5,000 unit SQ BID [facility] Last Admin: 09/04/17 09:46 Dose: 5,000 unit CEFTRIAXONE 1 G/50 ML PREMIX (Ceftriaxone 1 Gm-D5w Bag) 50 mls @ 100 mls/hr IVPB DAILY [facility] Last Admin: 09/04/17 10:01 Dose: 100 mls/hr - Objective Vital Signs: Vital Signs Temperature 98 F 09/04/17 05:00 Pulse Rate 80 09/04/17 05:00 Respiratory Rate 18 09/04/17 05:00 Blood Pressure 129/54 09/04/17 05:00 O2 Sat by Pulse Oximetry (%) 97 09/03/17 22:00 Constitutional: Yes: No Distress Eyes: Yes: Conjunctiva Clear HENT: Yes: Atraumatic Neck: Yes: Supple Cardiovascular: Yes: Regular Rate and Rhythm, Murmur (systolic and diastolic) Respiratory: Yes: Other (decr at right base). No: Rales, Rhonchi, Wheezes Gastrointestinal: Yes: Normal Bowel Sounds, Soft. No: Tenderness Edema: No Peripheral Pulses WNL: Yes Neurological: Yes: Alert, Oriented Psychiatric: Yes: Alert, Oriented Labs: CBC, BMP 09/04/17 06:15 09/04/17 06:15 INR, PTT INR 1.31 (0.82-1.09) H 08/29/17 16:24 - ....Imaging Other: Other (tele -. SR, APCs) Assessment/Plan 72 yo male with HTN, severe AR, severe MR, chronic systolic heart failure, who was admitted with SOB/FISCHER x 4 days. Patient was on admission with some evidence of fluid overload -> small effusions and orthopnea (though no wt gain or LE edema). However, the BNP (155, 918) seemed elevated out of proportion to the degree of CHF -> may be in part due to renal failure. 08/31/17 Echo: Moderately dilated LV with severely reduced systolic function, severe AR, severe MR, severe MS, moderate biatrial enlargement, moderate aortic root dilatation, and RVSP 44.8 mmHg. Currently being empirically treated for pneumonia given RLL infiltrate and elevated WBC on admission, but no fevers and no other symptoms Urine culture positive for staph & strep or enterococcus No evidence of ACS initially -> now indeterminate trop I in setting of worsening RF -> not diagnostic of ACS Patient was initially on dopamine gtt for hypotension with SBP 80s -> may be secondary to dehydration in setting of severe valvular disease and LV dysfunction (EF now 15%). Currently hemodynamically stable off dopamine gtt Now on furosemide 40 mg IV daily -. good diuresis Renal function was improving -. now numbers going up -> ? beccoming dry RECS: Switch furosemide to 40 m PO daily. Monitor lytes and renal function with diuresis. Increase carvedilol to 6.255 mg po bid (holding parameters for SBP < 100 mmHg or HR < 50 bpm) No CATHLEEN-I/ARB given renal failure Patient is agreeable to eventually undergoing evaluation for valve surgery. However, he will need right and left cardiac catheterization prior to that and he is currently not a candidate for cath given his renal failure. If his renal function continues to improve, will consider cath at that time. Ideally, would prefer it be deferred for a couple f weeks to ensure stability Management of renal failure as per nephrology.
[2017-09-04] MEDS ORDERED: FUROSEMIDE 40 MG/4 ML INJECTABLE VIAL ONE (13:05)
--- NOTE | 2017-09-04 13:05 | PN ---
Progress Note, Physician History of Present Illness: Appears more weak today No c/o chest pain/ dyspnea/ cough No fever/ chills - Current Medication List Current Medications: Active Medications Albuterol Sulfate (Ventolin 0.083% Nebulizer Soln -) 1 amp NEB Q4H PRN PRN Reason: SHORT OF BREATH/WHEEZING Albuterol/Ipratropium (Duoneb -) 1 amp NEB QIDR [facility] Last Admin: 09/04/17 11:43 Dose: 1 amp Aspirin (Asa -) 81 mg PO DAILY [facility] Last Admin: 09/04/17 09:45 Dose: 81 mg Carvedilol (Coreg -) 6.25 mg PO BID [facility] Furosemide (Lasix -) 40 mg PO DAILY [facility] Heparin Sodium (Porcine) (Heparin -) 5,000 unit SQ BID [facility] Last Admin: 09/04/17 09:46 Dose: 5,000 unit CEFTRIAXONE 1 G/50 ML PREMIX (Ceftriaxone 1 Gm-D5w Bag) 50 mls @ 100 mls/hr IVPB DAILY [facility] Last Admin: 09/04/17 10:01 Dose: 100 mls/hr - Objective Vital Signs: Vital Signs Temperature 98 F 09/04/17 09:00 Pulse Rate 69 09/04/17 11:42 Respiratory Rate 20 09/04/17 09:00 Blood Pressure 130/70 09/04/17 09:00 O2 Sat by Pulse Oximetry (%) 96 09/04/17 11:42 Constitutional: Yes: No Distress, Cachectic Cardiovascular: Yes: Regular Rate and Rhythm, S1, S2 Respiratory: Yes: Rhonchi Gastrointestinal: Yes: Normal Bowel Sounds, Soft. No: Tenderness Edema: No Labs: CBC, BMP 09/04/17 06:15 09/04/17 06:15 INR, PTT INR 1.31 (0.82-1.09) H 08/29/17 16:24 Assessment/Plan RLL pneumonia F/U CXR 09/02 increased markings R lung field Decompensated CHF Acute on chronic renal failure Elevated LFTs ? passive congestion - improved Continue ceftriaxone
--- NOTE | 2017-09-04 15:48 | PN ---
Progress Note (short form) - Note Progress Note: PULMONARY Breathing better with additional dose of lasix. Feels dry. No chest pain. No fevers or chills. Last Vital Signs Temp Pulse Resp BP Pulse Ox 98 F 69 20 130/70 96 09/04/17 09:00 09/04/17 11:42 09/04/17 09:00 09/04/17 09:00 09/04/17 11:42 Intake & Output 09/01/17 09/02/17 09/03/17 09/04/17 23:59 23:59 23:59 23:59 Intake Total 1110 0 760 490 Output Total 3500 1600 2200 400 Balance -2390 -1600 -1440 90 Weight 100 lb 6.4 oz 96 lb 6.4 oz 98 lb 3.2 oz Gen: NAD at rest Heart: RRR Lung: decreased breath sounds right base Abd: soft, nontender Ext: no edema CBC, BMP 09/04/17 06:15 09/04/17 06:15 Active Medications Albuterol Sulfate (Ventolin 0.083% Nebulizer Soln -) 1 amp NEB Q4H PRN PRN Reason: SHORT OF BREATH/WHEEZING Albuterol/Ipratropium (Duoneb -) 1 amp NEB QIDR [facility] Last Admin: 09/04/17 11:43 Dose: 1 amp Aspirin (Asa -) 81 mg PO DAILY [facility] Last Admin: 09/04/17 09:45 Dose: 81 mg Carvedilol (Coreg -) 6.25 mg PO BID [facility] Furosemide (Lasix -) 40 mg PO DAILY [facility] Heparin Sodium (Porcine) (Heparin -) 5,000 unit SQ BID [facility] Last Admin: 09/04/17 09:46 Dose: 5,000 unit CEFTRIAXONE 1 G/50 ML PREMIX (Ceftriaxone 1 Gm-D5w Bag) 50 mls @ 100 mls/hr IVPB DAILY [facility] Last Admin: 09/04/17 10:01 Dose: 100 mls/hr A/P Acute on Chronic Systolic Heart Failure Severe Mitral Regurgitation Tricuspid/Pulmonic Regurgitation HTN h/o DVT - continue lasix - monitor urine output, creatinine - O2 to keep SpO2 >90% - on empiric antibiotics - PO as tolerated - DVT prophylaxis
--- NOTE | 2017-09-04 20:31 | PN ---
Progress Note (short form) - Note Progress Note: coverage for dr rojo Acute on chronic renal fail s/p sepsis s/p HF underlying CKD stage 3 (baseline 1.5-1.8) h/o B/L hydronephrosis due to BPH, managed by TURP HTN HF/Valvular diz H/o DVT *s/p episode of HF exacerbation overnight felt better after a lasix dose was given Current Medications Albuterol Sulfate (Ventolin 0.083% Nebulizer Soln -) 1 amp NEB Q4H PRN PRN Reason: SHORT OF BREATH/WHEEZING Albuterol/Ipratropium (Duoneb -) 1 amp NEB QIDR [facility] Last Admin: 09/04/17 18:02 Dose: 1 amp Aspirin (Asa -) 81 mg PO DAILY [facility] Last Admin: 09/04/17 09:45 Dose: 81 mg Carvedilol (Coreg -) 6.25 mg PO BID [facility] Furosemide (Lasix -) 40 mg PO DAILY [facility] Heparin Sodium (Porcine) (Heparin -) 5,000 unit SQ BID [facility] Last Admin: 09/04/17 09:46 Dose: 5,000 unit CEFTRIAXONE 1 G/50 ML PREMIX (Ceftriaxone 1 Gm-D5w Bag) 50 mls @ 100 mls/hr IVPB DAILY [facility] Last Admin: 09/04/17 10:01 Dose: 100 mls/hr Last Vital Signs Temp Pulse Resp BP Pulse Ox 98.8 F 96 H 18 139/66 96 09/04/17 17:00 09/04/17 17:00 09/04/17 17:00 09/04/17 17:00 09/04/17 11:42 in nad Lungs clear, decr BS Heart reg Abd soft nontender Ext no edema CBC, BMP 09/04/17 06:15 09/04/17 06:15 #Acute Renal Failure on Chronic Renal function was improving initially now increased azotemia=== cardiorenal syndrome continue IV lasix for symptomatic heart failure #CHF Cardiology following s/p Sepsis on Ceftiraxone clinically improving daily weights to determine optimal weight and optimal diuretic management
[2017-09-04] MEDS ORDERED: PT OWN MED DRAWER 7, Y5N ONE (20:53)
[2017-09-04] MEDS: MELATONIN 5 MG TABLETS PO PRN (23:01)
[2017-09-05] MEDS: ALBUTEROL SO4 2.5/IPRATROPIUM 0.5 INH SOL 3 ML VIAL.NEB. NEB SCH ×4 (06:22→23:07)
[2017-09-05 07:40] LABS: MCH 27.8 pg (25.7-33.7); MCHC 32.1 g/dl (32.0-35.9); MEAN CELL VOLUME 86.6 fl (80-96); MEAN PLT VOLUME 9.4 fl (7.5-11.1); PLATELET COUNT 261 K/MM3 (134-434); RDW 17.3 % (11.9-15.9); WHITE BLOOD COUNT 11.5 K/mm3 (4.0-10.0)
[2017-09-05 08:19] LABS: ALBUMIN 2.5 g/dl (3.4-5.0); ALK PHOS 104 U/L (45-117); ANION GAP 18 (8-16); BILIRUBIN,TOTAL 0.7 mg/dL (0.2-1.0); CALCIUM 8.4 mg/dL (8.5-10.1); CO2 18 mmol/L (21-32); CREATININE 2.8 mg/dL (0.7-1.3); GLUCOSE,RANDOM 109 mg/dL (74-106); SGOT/AST 26 U/L (15-37); SGPT/ALT 89 U/L (12-78); TOT PROT 5.5 g/dl (6.4-8.2)
[2017-09-05] MEDS: ASPIRIN 81 MG CHEWABLE TABLETS PO SCH (09:36)
[2017-09-05] MEDS: HEPARIN NA (PORCINE) 5,000 UNITS/ML 1ML VIAL SQ SCH ×2 (09:36→21:32)
[2017-09-05] MEDS: FUROSEMIDE 40 MG TABLET (FP) PO SCH (09:36)
[2017-09-05] MEDS: CARVEDILOL 3.125 MG TABLET (FP) PO SCH ×2 (09:36→21:30)
[2017-09-05] MEDS: CEFTRIAXONE 1 G/50 ML PREMIX 50 ML IVPB SCH (09:37)
--- NOTE | 2017-09-05 12:05 | PN ---
Progress Note, Physician History of Present Illness: Pulmonary alert,less dyspneic,-cp - Current Medication List Current Medications: Active Medications Albuterol Sulfate (Ventolin 0.083% Nebulizer Soln -) 1 amp NEB Q4H PRN PRN Reason: SHORT OF BREATH/WHEEZING Albuterol/Ipratropium (Duoneb -) 1 amp NEB QIDR [facility] Last Admin: 09/05/17 11:05 Dose: 1 amp Aspirin (Asa -) 81 mg PO DAILY [facility] Last Admin: 09/05/17 09:36 Dose: 81 mg Carvedilol (Coreg -) 6.25 mg PO BID [facility] Last Admin: 09/05/17 09:36 Dose: 6.25 mg Furosemide (Lasix -) 40 mg PO DAILY [facility] Last Admin: 09/05/17 09:36 Dose: 40 mg Heparin Sodium (Porcine) (Heparin -) 5,000 unit SQ BID [facility] Last Admin: 09/05/17 09:36 Dose: 5,000 unit CEFTRIAXONE 1 G/50 ML PREMIX (Ceftriaxone 1 Gm-D5w Bag) 50 mls @ 100 mls/hr IVPB DAILY [facility] Last Admin: 09/05/17 09:37 Dose: 100 mls/hr Melatonin (Melatonin) 5 mg PO HS PRN PRN Reason: INSOMNIA Last Admin: 09/04/17 23:01 Dose: 5 mg - Objective Vital Signs: Vital Signs Temperature 98.2 F 09/05/17 08:05 Pulse Rate 78 09/05/17 08:05 Respiratory Rate 16 09/05/17 08:05 Blood Pressure 130/58 09/05/17 08:05 O2 Sat by Pulse Oximetry (%) 96 09/04/17 22:00 Constitutional: Yes: Calm, Thin Eyes: Yes: WNL HENT: Yes: WNL Neck: Yes: WNL Cardiovascular: Yes: Pulse Irregular, S1, S2 Respiratory: Yes: Diminished Gastrointestinal: Yes: Normal Bowel Sounds, Soft Extremities: Yes: WNL Edema: No Labs: CBC, BMP 09/05/17 05:27 09/05/17 05:27 INR, PTT INR 1.31 (0.82-1.09) H 08/29/17 16:24 Problem List - Problems (1) Respiratory distress Code(s): R06.00 - DYSPNEA, UNSPECIFIED (2) Shortness of breath Code(s): R06.02 - SHORTNESS OF BREATH (3) CHF (congestive heart failure) Code(s): I50.9 - HEART FAILURE, UNSPECIFIED Qualifiers: Congestive heart failure type: unspecified congestive heart failure type Congestive heart failure chronicity: unspecified congestive heart failure chronicity Qualified Code(s): I50.9 - Heart failure, unspecified (4) HTN (hypertension) Code(s): I10 - ESSENTIAL (PRIMARY) HYPERTENSION Assessment/Plan ASSESSMENT AND PLAN: Acute on Chronic Systolic Heart Failure improving Severe Mitral Regurgitation Tricuspid/Pulmonic Regurgitation HTN h/o DVT - PO lasix - monitor urine output, creatinine - O2 to keep SpO2 >90% - PO as tolerated - DVT prophylaxis DR DICKINSON
--- NOTE | 2017-09-05 12:45 | PN ---
Progress Note, Physician History of Present Illness: Supine in bed C/O dyspnea at rest No c/o chest pain/ dyspnea/ cough No fever/ chills Afebrile WBC down 11.5 LFTs improved - Current Medication List Current Medications: Active Medications Albuterol Sulfate (Ventolin 0.083% Nebulizer Soln -) 1 amp NEB Q4H PRN PRN Reason: SHORT OF BREATH/WHEEZING Albuterol/Ipratropium (Duoneb -) 1 amp NEB QIDR [facility] Last Admin: 09/05/17 11:05 Dose: 1 amp Aspirin (Asa -) 81 mg PO DAILY [facility] Last Admin: 09/05/17 09:36 Dose: 81 mg Carvedilol (Coreg -) 6.25 mg PO BID [facility] Last Admin: 09/05/17 09:36 Dose: 6.25 mg Furosemide (Lasix -) 40 mg PO DAILY [facility] Last Admin: 09/05/17 09:36 Dose: 40 mg Heparin Sodium (Porcine) (Heparin -) 5,000 unit SQ BID [facility] Last Admin: 09/05/17 09:36 Dose: 5,000 unit CEFTRIAXONE 1 G/50 ML PREMIX (Ceftriaxone 1 Gm-D5w Bag) 50 mls @ 100 mls/hr IVPB DAILY [facility] Last Admin: 09/05/17 09:37 Dose: 100 mls/hr Melatonin (Melatonin) 5 mg PO HS PRN PRN Reason: INSOMNIA Last Admin: 09/04/17 23:01 Dose: 5 mg - Objective Vital Signs: Vital Signs Temperature 98.2 F 09/05/17 08:05 Pulse Rate 78 09/05/17 08:05 Respiratory Rate 16 09/05/17 08:05 Blood Pressure 130/58 09/05/17 08:05 O2 Sat by Pulse Oximetry (%) 96 09/04/17 22:00 Constitutional: Yes: No Distress, Other (mildly tachypneic at rest on nasal cannula) Eyes: Yes: Conjunctiva Clear Cardiovascular: Yes: Regular Rate and Rhythm, S1, S2 Respiratory: Yes: Other (rales R base) Gastrointestinal: Yes: Normal Bowel Sounds, Soft. No: Tenderness Labs: CBC, BMP 09/05/17 05:27 09/05/17 05:27 INR, PTT INR 1.31 (0.82-1.09) H 08/29/17 16:24 Assessment/Plan RLL pneumonia Decompensated CHF Acute on chronic renal failure Elevated LFTs ? passive congestion - improved Discontinue ceftriaxone Ceftin 250mg po bid x3d
[2017-09-05] MEDS ORDERED: FUROSEMIDE 40 MG/4 ML INJECTABLE VIAL IVPUSH ONE (13:25)
--- NOTE | 2017-09-05 13:40 | PN ---
Physical Exam: SUBJECTIVE: Patient seen and examined at the bedside. States he is more short of breath at rest. denies chest pain. OBJECTIVE: shortness of breath at rest, oxygen sats on 4 liters in the low 90s +right lower lobe crackles FABIAN 2.8 Will give lasix 20mg iv push now to help relieve the SOB, he is on standing Lasix 40mg PO given ealier with minimal relief Cardiology follow up for reconsideration of a possible life vest? His EF is only 15%, from 55% on December 2016 Vital Signs Period Temp Pulse Resp BP Sys/Martinez Pulse Ox Last 24 Hr 97.3 F-98.8 F 73-96 16-20 97-139/44-90 96-98 GENERAL: The patient is awake, alert, and fully oriented, in moderate respiratory distress, HEAD: Normal with no signs of trauma. EYES: PERRL, extraocular movements intact, sclera anicteric, conjunctiva clear. No ptosis. ENT: Ears normal, nares patent, oropharynx clear without exudates, moist mucous membranes. NECK: Trachea midline, full range of motion, supple. LUNGS: +crackles on RLL, RUL diminished, Left lung diminished, on 4 liters of nasal cannula HEART: NSR ABDOMEN:concave EXTREMITIES: no edema. NEUROLOGICAL: Normal speech, conversational dyspnea, gait not observed. PSYCH: Normal mood, normal affect. SKIN: Warm, dry, normal turgor, no rashes or lesions noted Laboratory Results - last 24 hr 09/05/17 09/05/17 05:27 05:27 WBC 11.5 H RBC 3.84 L Hgb 10.7 L Hct 33.3 L MCV 86.6 MCH 27.8 MCHC 32.1 RDW 17.3 H Plt Count 261 MPV 9.4 Sodium 136 Potassium 3.8 Chloride 100 Carbon Dioxide 18 L Anion Gap 18 H BUN 91 H Creatinine 2.8 H Creat Clearance w eGFR 22.51 Random Glucose 109 H Calcium 8.4 L Total Bilirubin 0.7 AST 26 ALT 89 H Alkaline Phosphatase 104 Total Protein 5.5 L Albumin 2.5 L Active Medications Generic Name Dose Route Start Last Admin Trade Name Freq PRN Reason Stop Dose Admin Albuterol Sulfate 1 amp 09/01/17 15:59 Ventolin 0.083% Nebulizer Soln - NEB Q4H PRN SHORT OF BREATH/WHEEZING Albuterol/Ipratropium 1 amp 09/01/17 18:00 09/05/17 11:05 Duoneb - NEB 1 amp QIDR [facility] Administration Aspirin 81 mg 09/02/17 10:00 09/05/17 09:36 Asa - PO 81 mg DAILY [facility] Administration Carvedilol 6.25 mg 09/04/17 10:26 09/05/17 09:36 Coreg - PO 6.25 mg BID [facility] Administration Cefuroxime Axetil 250 mg 09/05/17 13:00 Ceftin - PO BID [facility] Furosemide 40 mg 09/05/17 10:00 09/05/17 09:36 Lasix - PO 40 mg DAILY [facility] Administration Furosemide 20 mg 09/05/17 13:25 Lasix Injection - IVPUSH 09/05/17 13:26 ONCE ONE Heparin Sodium (Porcine) 5,000 unit 09/01/17 22:00 09/05/17 09:36 Heparin - SQ 5,000 unit BID [facility] Administration Melatonin 5 mg 09/04/17 21:19 09/04/17 23:01 Melatonin PO 5 mg HS PRN Administration INSOMNIA ASSESSMENT/PLAN: Patient is a 72 year old male with a significant past medical history of CHF, HTN, hyperlipidemia, CVA vs. TIA, DVT, BPH, CKD who presented to the ED on 2016 with shortness of breath, dyspnea on exertion and lower extremity weakness. Cardiology: Acute on chronic severe systolic heart failure, EF 15%, previously 55% on 01/07 Echo 08/2017 shows LV systolic function severely reduced, moderate tricuspid thickening. Moderate to severe tricuspid regurgitation. Severe aortic regurgitation, severe pulmonic regurgitation, severe global hypokinesis, a vegetation on the mitral valve cannot be excluded Previous Echo on 04/09 shows EF 45%, with valvular cardiomyopathy progression, LV mod dilated, cardiomyopathy has progressed since 12/30/2016 Blood cultures negative to date On Lasix 40mg daily, Coreg 6.25mg bid Patient may need a life vest, cardiology following On Lasix 40mg PO daily, but given an extra dose of Lasix 20mg IV x 1 for increased dyspnea Plan is for patient to have a right and left cardiac cath prior to valve surgery , once renal function is stable Troponins peaked at 0.19 Pulmonary: Acute hypoxic respiratory failure,in the setting of worsening CHF Community acquired pneumonia On 4 liters nasal cannula, bipap as needed Pulmonary following, notes reviewed ID following, changed Ceftriaxone to PO Renal: FABIAN on CKD stage 3, creatinine worse today Continue to trend, monitor intake and output Nephrology following F.E.N. Fluids: none/PO only Electrolytes: monitor and replete Nutrition: low sodium Prophylaxis Heparin Protonix Full code
[2017-09-05] MEDS: CEFUROXIME AXETIL 250 MG TABLET PO SCH ×2 (14:00→21:29)
--- NOTE | 2017-09-05 16:24 | PN ---
Progress Note, Physician History of Present Illness: SOB at times, again this afternoon -. s/p lasix 20 IV X 1 -> better w/o much diuresis No CP - Current Medication List Current Medications: Active Medications Albuterol Sulfate (Ventolin 0.083% Nebulizer Soln -) 1 amp NEB Q4H PRN PRN Reason: SHORT OF BREATH/WHEEZING Albuterol/Ipratropium (Duoneb -) 1 amp NEB QIDR [facility] Last Admin: 09/05/17 11:05 Dose: 1 amp Aspirin (Asa -) 81 mg PO DAILY [facility] Last Admin: 09/05/17 09:36 Dose: 81 mg Carvedilol (Coreg -) 6.25 mg PO BID [facility] Last Admin: 09/05/17 09:36 Dose: 6.25 mg Cefuroxime Axetil (Ceftin -) 250 mg PO BID [facility] Furosemide (Lasix -) 40 mg PO DAILY [facility] Last Admin: 09/05/17 09:36 Dose: 40 mg Heparin Sodium (Porcine) (Heparin -) 5,000 unit SQ BID [facility] Last Admin: 09/05/17 09:36 Dose: 5,000 unit Melatonin (Melatonin) 5 mg PO HS PRN PRN Reason: INSOMNIA Last Admin: 09/04/17 23:01 Dose: 5 mg Pantoprazole Sodium (Protonix -) 40 mg PO DAILY [facility] - Objective Vital Signs: Vital Signs Temperature 98.2 F 09/05/17 08:05 Pulse Rate 72 09/05/17 13:00 Respiratory Rate 16 09/05/17 13:00 Blood Pressure 132/66 09/05/17 13:00 O2 Sat by Pulse Oximetry (%) 98 09/05/17 13:00 Constitutional: Yes: No Distress Eyes: Yes: Conjunctiva Clear HENT: Yes: Atraumatic Neck: Yes: Supple Cardiovascular: Yes: Regular Rate and Rhythm, Murmur (systolic and diastolic) Respiratory: Yes: Other (decr BS at bases (R >>L)). No: Rales, Rhonchi, Wheezes Gastrointestinal: Yes: Normal Bowel Sounds, Soft. No: Tenderness Edema: No Peripheral Pulses WNL: Yes Neurological: Yes: Alert, Oriented Psychiatric: Yes: Alert, Oriented Labs: CBC, BMP 09/05/17 05:27 09/05/17 05:27 INR, PTT INR 1.31 (0.82-1.09) H 08/29/17 16:24 Assessment/Plan 72 yo male with HTN, severe AR, severe MR, chronic systolic heart failure, who was admitted with SOB/FISCHER x 4 days. Patient was on admission with some evidence of fluid overload -> small effusions and orthopnea (though no wt gain or LE edema). However, the BNP (155, 918) seemed elevated out of proportion to the degree of CHF -> may be in part due to renal failure. 08/31/17 Echo: Moderately dilated LV with severely reduced systolic function, severe AR, severe MR, severe OK, moderate biatrial enlargement, moderate aortic root dilatation, and RVSP 44.8 mmHg. Currently being empirically treated for pneumonia given RLL infiltrate and elevated WBC on admission, but no fevers and no other symptoms Urine culture positive for staph & strep or enterococcus No evidence of ACS initially -> now indeterminate trop I in setting of worsening RF -> not diagnostic of ACS Patient was initially on dopamine gtt for hypotension with SBP 80s -> may be secondary to dehydration in setting of severe valvular disease and LV dysfunction (EF now 15%). Currently hemodynamically stable off dopamine gtt Now on furosemide 40 mg IV daily -> good diuresis Renal function was improving -. now numbers going up -> ? becoming dry Swicthed to PO lasix today -. numbers still going up today Wt still going down Exam c/w right pl effusion CXR also consistent -. thoracentesis might be helpful RECS: IR for right thoracentesis Cont furosemide to 40 m PO daily. Monitor lytes and renal function with diuresis. Cont carvedilol to 6.255 mg po bid (holding parameters for SBP < 100 mmHg or HR < 50 bpm) No CATHLEEN-I/ARB given renal failure Patient is agreeable to eventually undergoing evaluation for valve surgery. However, he will need right and left cardiac catheterization prior to that and he is currently not a candidate for cath given his renal failure. If his renal function continues to improve, will consider cath at that time. Ideally, would prefer it be deferred for a couple of weeks to ensure stability Management of renal failure as per nephrology. D/W Hospitalist, Dr Watson
--- NOTE | 2017-09-05 18:03 | PN ---
Progress Note (short form) - Note Progress Note: Renal Follow up for FABIAN on CKD Pt seen and examined at the bedside awake and alert states that he does not feel so great reports increased sob no chest pain, abd pain, flank pain, N/V/D Vital Signs Temperature 98.2 F 09/05/17 08:05 Pulse Rate 72 09/05/17 13:00 Respiratory Rate 16 09/05/17 13:00 Blood Pressure 132/66 09/05/17 13:00 O2 Sat by Pulse Oximetry (%) 98 09/05/17 13:00 Intake & Output 09/02/17 09/03/17 09/04/17 09/05/17 23:59 23:59 23:59 23:59 Intake Total 0 760 730 10 Output Total 1600 2200 600 200 Balance -1600 -1440 130 -190 Weight 96 lb 6.4 oz 98 lb 3.2 oz 97 lb 3.2 oz NAD on NC O2 RRR, NO M/R Dec Bs right lung base, normal BS left lung soft NT/ND No LE edema CBC, BMP 09/05/17 05:27 09/05/17 05:27 Current Medications Albuterol Sulfate (Ventolin 0.083% Nebulizer Soln -) 1 amp NEB Q4H PRN PRN Reason: SHORT OF BREATH/WHEEZING Albuterol/Ipratropium (Duoneb -) 1 amp NEB QIDR [facility] Last Admin: 09/05/17 11:05 Dose: 1 amp Aspirin (Asa -) 81 mg PO DAILY [facility] Last Admin: 09/05/17 09:36 Dose: 81 mg Carvedilol (Coreg -) 6.25 mg PO BID [facility] Last Admin: 09/05/17 09:36 Dose: 6.25 mg Cefuroxime Axetil (Ceftin -) 250 mg PO BID [facility] Last Admin: 09/05/17 14:00 Dose: 250 mg Furosemide (Lasix -) 40 mg PO DAILY [facility] Last Admin: 09/05/17 09:36 Dose: 40 mg Heparin Sodium (Porcine) (Heparin -) 5,000 unit SQ BID [facility] Last Admin: 09/05/17 09:36 Dose: 5,000 unit Melatonin (Melatonin) 5 mg PO HS PRN PRN Reason: INSOMNIA Last Admin: 09/04/17 23:01 Dose: 5 mg Pantoprazole Sodium (Protonix -) 40 mg PO DAILY [facility] This is a 72 year old Gentleman with PMhx of CKD Stage 3 (baseline Cr 1.5-1.8), Hx of B/L hydronephrosis secondary to BPH now s/p TURP, Hypertension, CHF/ Valvuar disease, Hx of DVT who presents to the ED with complaints of SOB, LE weakness with viral prodrome and found to have FABIAN with Cr of 2.5-> 3.7. #Acute Renal Failure Renal function now with further decline will get NM Renal scan with Lasix to r/o functional obstruction given persistent hydronephrosis Urology consult continue PRN Lasix IV as needed for SOB (pt with unilateral pleural effusion - for throacenteiss) Trend BUN/Cr Dose all meds for Cr Cl less then 20 no CATHLEEN/ARB given worsening renal function trend serum bicarb, if remains < 22, start oral bicarb #CHF Cardiology following PRN Lasix off dopamine gtt No CATHLEEN/ARB given renal injury #Sepsis on Ceftiraxone clinically improved Flex Lo DO Problem List - Problems (1) Acute renal failure Code(s): N17.9 - ACUTE KIDNEY FAILURE, UNSPECIFIED Qualifiers: Acute renal failure type: unspecified Qualified Code(s): N17.9 - Acute kidney failure, unspecified (2) Respiratory distress Code(s): R06.00 - DYSPNEA, UNSPECIFIED (3) Shortness of breath Code(s): R06.02 - SHORTNESS OF BREATH (4) CHF (congestive heart failure) Code(s): I50.9 - HEART FAILURE, UNSPECIFIED Qualifiers: Congestive heart failure type: unspecified congestive heart failure type Congestive heart failure chronicity: unspecified congestive heart failure chronicity Qualified Code(s): I50.9 - Heart failure, unspecified (5) Sepsis Code(s): A41.9 - SEPSIS, UNSPECIFIED ORGANISM
[2017-09-05] MEDS ORDERED: PT OWN MED DRAWER 7, Y5N ONE (21:21)
[2017-09-05] MEDS: MELATONIN 5 MG TABLETS PO PRN (21:30)
[2017-09-06] MEDS ORDERED: ACETAMINOPHEN 325 MG TABLET (FP) PO ONE (01:02)
[2017-09-06] MEDS: ALBUTEROL SO4 2.5/IPRATROPIUM 0.5 INH SOL 3 ML VIAL.NEB. NEB SCH ×2 (06:36→11:05)
--- NOTE | 2017-09-06 06:40 | CONSULT ---
Consult - text type - Consultation Consultation Note: CARDIOLOGY. NO DYSPNEA AT REST. NO ANGINA. MEDICATIONS REVIEWED. APPEARS IN NO DISTRESS LYING AT 45 DEGREES. RR 19/MINUTE. BLOOD PRESSURE 128/78 HEART RATE 70/MINUTE REGULAR. DECREASED BREATH SOUNDS RIGHT POSTERIOR LUNG FIELD. DULLNESS TO PERCUSSION. SYSTOLIC 2/6 MURMUR. DIASTOLIC 3/4 EARLY DIASTOLIC BLOW NO EDEMA. TELEMETRY SINUS RHYTHM. BUN91 CREAT 2.8. IMPRESSION. 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 SUSPECT LARGE RIGHT TRANSUDATIVE PLEURAL EFFUSION. RENAL FAILURE IS A MAJOR INFLUENCE ON MANAGEMENT DECISIONS. SUSPECT DIALYSIS WILL BE REQUIRED FOR INVASIVE PROCEDURES/SURGICAL INTERVENTION. VALVE REPLACEMENT WILL BE REQUIRED DESPITE RISK IN ORDER TO PREVENT RECURRENT HEART FAILURE. REC: THORACENTESIS BY IR. CONSIDER HYDRALAZINE / NITRATE THERAPY DEPENDANT ON CONTINUED HEMODYNAMIC STABILITY. DISCONTINUE TELEMETRY. CONSIDERATION FOR RIGHT/ LEFT HEART CATH DURING THIS HOSPITALIZATION THROUGH TRANSFER TO [facility]
[2017-09-06 07:35] LABS: BASOPHIL 0.4 % (0-2.0); EOSINOPHIL 0.7 % (0-4.5); MCH 28.5 pg (25.7-33.7); MCHC 32.5 g/dl (32.0-35.9); MEAN CELL VOLUME 87.7 fl (80-96); MEAN PLT VOLUME 9.7 fl (7.5-11.1); NEUTROPHILS 87.6 % (42.8-82.8); PLATELET COUNT 290 K/MM3 (134-434); RDW 17.1 % (11.9-15.9); WHITE BLOOD COUNT 10.8 K/mm3 (4.0-10.0)
[2017-09-06 08:24] LABS: ALBUMIN 2.5 g/dl (3.4-5.0); ALK PHOS 119 U/L (45-117); ANION GAP 19 (8-16); BILIRUBIN,TOTAL 0.7 mg/dL (0.2-1.0); CALCIUM 8.6 mg/dL (8.5-10.1); CO2 18 mmol/L (21-32); CREATININE 3.1 mg/dL (0.7-1.3); GLUCOSE,RANDOM 107 mg/dL (74-106); MAGNESIUM 2.9 mg/dL (1.8-2.4); SGOT/AST 22 U/L (15-37); SGPT/ALT 78 U/L (12-78); TOT PROT 5.6 g/dl (6.4-8.2)
[2017-09-06] MEDS: ASPIRIN 81 MG CHEWABLE TABLETS PO SCH (09:08)
[2017-09-06] MEDS: CARVEDILOL 3.125 MG TABLET (FP) PO SCH ×2 (09:09→21:51)
[2017-09-06] MEDS: HEPARIN NA (PORCINE) 5,000 UNITS/ML 1ML VIAL SQ SCH ×2 (09:09→21:52)
[2017-09-06] MEDS: PANTOPRAZOLE 40 MG TABLET (FP) PO SCH (09:09)
[2017-09-06] MEDS: CEFUROXIME AXETIL 250 MG TABLET PO SCH ×2 (09:10→21:51)
[2017-09-06] MEDS: FUROSEMIDE 40 MG TABLET (FP) PO SCH (09:12)
--- NOTE | 2017-09-06 10:38 | PN ---
Progress Note, Physician History of Present Illness: PULMONARY ALERT,NAD,LAYING FLAT IN BED,-DYSPNEA,-TACHYPNEA - Current Medication List Current Medications: Active Medications Albuterol Sulfate (Ventolin 0.083% Nebulizer Soln -) 1 amp NEB Q4H PRN PRN Reason: SHORT OF BREATH/WHEEZING Albuterol/Ipratropium (Duoneb -) 1 amp NEB QIDR [facility] Last Admin: 09/06/17 06:36 Dose: Not Given Aspirin (Asa -) 81 mg PO DAILY [facility] Last Admin: 09/06/17 09:08 Dose: Not Given Carvedilol (Coreg -) 6.25 mg PO BID [facility] Last Admin: 09/06/17 09:09 Dose: 6.25 mg Cefuroxime Axetil (Ceftin -) 250 mg PO BID [facility] Last Admin: 09/06/17 09:10 Dose: 250 mg Furosemide (Lasix -) 40 mg PO DAILY [facility] Last Admin: 09/06/17 09:12 Dose: Not Given Heparin Sodium (Porcine) (Heparin -) 5,000 unit SQ BID [facility] Last Admin: 09/06/17 09:09 Dose: Not Given Melatonin (Melatonin) 5 mg PO HS PRN PRN Reason: INSOMNIA Last Admin: 09/05/17 21:30 Dose: 5 mg Pantoprazole Sodium (Protonix -) 40 mg PO DAILY [facility] Last Admin: 09/06/17 09:09 Dose: 40 mg - Objective Vital Signs: Vital Signs Temperature 98.2 F 09/06/17 08:05 Pulse Rate 74 09/06/17 08:05 Respiratory Rate 16 09/06/17 08:05 Blood Pressure 126/68 09/06/17 08:05 O2 Sat by Pulse Oximetry (%) 98 09/05/17 21:00 Constitutional: Yes: Calm, Thin Eyes: Yes: WNL HENT: Yes: WNL Neck: Yes: WNL Cardiovascular: Yes: Regular Rate and Rhythm, S1, S2 Respiratory: Yes: Diminished (DECREASED BS R 1/3 UP) Gastrointestinal: Yes: Normal Bowel Sounds, Soft Extremities: Yes: WNL Edema: No Labs: CBC, BMP 09/06/17 05:10 09/06/17 05:10 INR, PTT INR 1.31 (0.82-1.09) H 08/29/17 16:24 - ....Imaging Chest X-ray: Report Reviewed, Image Reviewed Problem List - Problems (1) Respiratory distress Code(s): R06.00 - DYSPNEA, UNSPECIFIED (2) Shortness of breath Code(s): R06.02 - SHORTNESS OF BREATH (3) CHF (congestive heart failure) Code(s): I50.9 - HEART FAILURE, UNSPECIFIED Qualifiers: Congestive heart failure type: unspecified congestive heart failure type Congestive heart failure chronicity: unspecified congestive heart failure chronicity Qualified Code(s): I50.9 - Heart failure, unspecified (4) HTN (hypertension) Code(s): I10 - ESSENTIAL (PRIMARY) HYPERTENSION Assessment/Plan ASSESSMENT AND PLAN: Acute on Chronic Systolic Heart Failure improving Severe Mitral Regurgitation Tricuspid/Pulmonic Regurgitation R pleural effusion likely transudate HTN h/o DVT - PO lasix - monitor urine output, creatinine - O2 to keep SpO2 >90% - PO as tolerated - DVT prophylaxis - Thoracentesis with ultrasound guidance DR DICKINSON
--- NOTE | 2017-09-06 13:34 | PN ---
Physical Exam: SUBJECTIVE: Patient seen and examined at the bedside. OBJECTIVE: For possible thoracentesis today with IR Please continue telemonitoring Vital Signs Period Temp Pulse Resp BP Sys/Martinez Pulse Ox Last 24 Hr 97.6 F-98.3 F 72-80 16-18 119-139/42-68 96-98 GENERAL: The patient is awake, alert, and fully oriented, in moderate respiratory distress, HEAD: Normal with no signs of trauma. EYES: PERRL, extraocular movements intact, sclera anicteric, conjunctiva clear. No ptosis. ENT: Ears normal, nares patent, oropharynx clear without exudates, moist mucous membranes. NECK: Trachea midline, full range of motion, supple. LUNGS: +crackles on RLL, RLL diminished, Left lung diminished, on 4 liters of nasal cannula, shortness of breath at rest HEART: NSR ABDOMEN:concave EXTREMITIES: no edema. NEUROLOGICAL: Normal speech, conversational dyspnea, gait not observed. PSYCH: Normal mood, normal affect. SKIN: Warm, dry, normal turgor, no rashes or lesions noted Laboratory Results - last 24 hr 09/06/17 09/06/17 05:10 05:10 WBC 10.8 H RBC 3.92 L Hgb 11.2 L Hct 34.3 L MCV 87.7 MCH 28.5 MCHC 32.5 RDW 17.1 H Plt Count 290 MPV 9.7 Neutrophils % 87.6 H Lymphocytes % 3.3 L D Monocytes % 8.0 Eosinophils % 0.7 Basophils % 0.4 Sodium 137 Potassium 4.0 Chloride 100 Carbon Dioxide 18 L Anion Gap 19 H BUN 105 H* Creatinine 3.1 H Creat Clearance w eGFR 20.02 Random Glucose 107 H Calcium 8.6 Magnesium 2.9 H Total Bilirubin 0.7 AST 22 ALT 78 Alkaline Phosphatase 119 H Total Protein 5.6 L Albumin 2.5 L Active Medications Generic Name Dose Route Start Last Admin Trade Name Freq PRN Reason Stop Dose Admin Albuterol Sulfate 1 amp 09/01/17 15:59 Ventolin 0.083% Nebulizer Soln - NEB Q4H PRN SHORT OF BREATH/WHEEZING Albuterol/Ipratropium 1 amp 09/01/17 18:00 09/06/17 11:05 Duoneb - NEB 1 amp QIDR [facility] Administration Aspirin 81 mg 09/02/17 10:00 09/06/17 09:08 Asa - PO Not Given DAILY [facility] Carvedilol 6.25 mg 09/04/17 10:26 09/06/17 09:09 Coreg - PO 6.25 mg BID [facility] Administration Cefuroxime Axetil 250 mg 09/05/17 13:00 09/06/17 09:10 Ceftin - PO 250 mg BID [facility] Administration Furosemide 40 mg 09/05/17 10:00 09/06/17 09:12 Lasix - PO Not Given DAILY [facility] Heparin Sodium (Porcine) 5,000 unit 09/01/17 22:00 09/06/17 09:09 Heparin - SQ Not Given BID [facility] Melatonin 5 mg 09/04/17 21:19 09/05/17 21:30 Melatonin PO 5 mg HS PRN Administration INSOMNIA Pantoprazole Sodium 40 mg 09/06/17 10:00 09/06/17 09:09 Protonix - PO 40 mg DAILY [facility] Administration ASSESSMENT/PLAN: Patient is a 72 year old male with a significant past medical history of CHF, HTN, hyperlipidemia, CVA vs. TIA, DVT, BPH, CKD who presented to the ED on 2016 with shortness of breath, dyspnea on exertion and lower extremity weakness. Cardiology: Acute on chronic severe systolic heart failure, EF 15%, previously 55% on 01/07 Echo 08/2017 shows LV systolic function severely reduced, moderate tricuspid thickening. Moderate to severe tricuspid regurgitation. Severe aortic regurgitation, severe pulmonic regurgitation, severe global hypokinesis, a vegetation on the mitral valve cannot be excluded Previous Echo on 04/09 shows EF 45%, with valvular cardiomyopathy progression, LV mod dilated, cardiomyopathy has progressed since 12/30/2016 Blood cultures negative to date On Lasix 40mg daily, Coreg 6.25mg bid Patient may need a life vest, cardiology following On Lasix 40mg PO daily Plan is for patient to have a right and left cardiac cath prior to valve surgery , once renal function is stable Troponins peaked at 0.19 Pulmonary: Acute hypoxic respiratory failure,in the setting of worsening CHF Community acquired pneumonia On 4 liters nasal cannula, bipap as needed Pulmonary following, notes reviewed ID following, changed Ceftriaxone to PO Patient for an ultrasound guided paracentesis Renal: FABIAN on CKD stage 3, creatinine 3.1 Continue to trend, monitor intake and output Renal scan today F.E.N. Fluids: none/PO only Electrolytes: monitor and replete Nutrition: low sodium Prophylaxis Heparin Protonix Full code
--- NOTE | 2017-09-06 15:02 | PN ---
Progress Note (short form) - Note Progress Note: Renal Follow up for FABIAN on CKD Pt seen and examined at the bedside awake and alert has some sob, some discomfort with deep breaths feels weak denies any CP, cough, Abd pain, N/V/D Vital Signs Temperature 98.2 F 09/06/17 08:05 Pulse Rate 72 09/06/17 11:05 Respiratory Rate 16 09/06/17 09:00 Blood Pressure 126/68 09/06/17 08:05 O2 Sat by Pulse Oximetry (%) 97 09/06/17 11:05 Intake & Output 09/03/17 09/04/17 09/05/17 09/06/17 23:59 23:59 23:59 23:59 Intake Total 760 730 330 Output Total 2200 600 600 400 Balance -1440 130 -270 -400 Weight 98 lb 3.2 oz 97 lb 3.2 oz 96 lb 3.2 oz NAD on NC O2 RRR, NO M/R Dec Bs right lung base, normal BS left lung soft NT/ND No LE edema CBC, BMP 09/06/17 05:10 09/06/17 05:10 Current Medications Albuterol Sulfate (Ventolin 0.083% Nebulizer Soln -) 1 amp NEB Q4H PRN PRN Reason: SHORT OF BREATH/WHEEZING Albuterol/Ipratropium (Duoneb -) 1 amp NEB QIDR [facility] Last Admin: 09/06/17 11:05 Dose: 1 amp Aspirin (Asa -) 81 mg PO DAILY [facility] Last Admin: 09/06/17 09:08 Dose: Not Given Carvedilol (Coreg -) 6.25 mg PO BID [facility] Last Admin: 09/06/17 09:09 Dose: 6.25 mg Cefuroxime Axetil (Ceftin -) 250 mg PO BID [facility] Last Admin: 09/06/17 09:10 Dose: 250 mg Furosemide (Lasix -) 40 mg PO DAILY [facility] Last Admin: 09/06/17 09:12 Dose: Not Given Heparin Sodium (Porcine) (Heparin -) 5,000 unit SQ BID [facility] Last Admin: 09/06/17 09:09 Dose: Not Given Melatonin (Melatonin) 5 mg PO HS PRN PRN Reason: INSOMNIA Last Admin: 09/05/17 21:30 Dose: 5 mg Pantoprazole Sodium (Protonix -) 40 mg PO DAILY [facility] Last Admin: 09/06/17 09:09 Dose: 40 mg This is a 72 year old Gentleman with PMhx of CKD Stage 3 (baseline Cr 1.5-1.8), Hx of B/L hydronephrosis secondary to BPH now s/p TURP, Hypertension, CHF/ Valvuar disease, Hx of DVT who presents to the ED with complaints of SOB, LE weakness with viral prodrome and found to have FABIAN with Cr of 2.5-> 3.7. #Acute Renal Failure BUN/Cr getting worse in setting of b/l hydronephrosis and IV diuretics repeat urine studies for FeNa and FeUrea NM Renal Scan is pending on IV lasix but will hold AM dose today given worsening renal function (pt with dyspnea but to get thoracentesis today) #CHF Cardiology following holding AM lasix today for thoracentesis today off dopamine gtt No CATHLEEN/ARB given renal injury #Sepsis on Ceftiraxone clinically improved Flex Lo DO Problem List - Problems (1) Acute renal failure Code(s): N17.9 - ACUTE KIDNEY FAILURE, UNSPECIFIED Qualifiers: Acute renal failure type: unspecified Qualified Code(s): N17.9 - Acute kidney failure, unspecified (2) Respiratory distress Code(s): R06.00 - DYSPNEA, UNSPECIFIED (3) Shortness of breath Code(s): R06.02 - SHORTNESS OF BREATH (4) CHF (congestive heart failure) Code(s): I50.9 - HEART FAILURE, UNSPECIFIED Qualifiers: Congestive heart failure type: unspecified congestive heart failure type Congestive heart failure chronicity: unspecified congestive heart failure chronicity Qualified Code(s): I50.9 - Heart failure, unspecified (5) Sepsis Code(s): A41.9 - SEPSIS, UNSPECIFIED ORGANISM
[2017-09-06 17:21] LABS: PLEURAL FLUID APPEARANCE HAZY; PLEURAL FLUID COLOR YELLOW; PLEURAL FLUID SOURCE PLEURAL
[2017-09-06] MEDS: guaiFENesin 200 MG/10 ML 10 ML UNIT-DOSE CUPS PO PRN (17:37)
[2017-09-06 17:51] LABS: PLEURAL FLUID LYMPHOCYTES 16 %; PLEURAL FLUID NEUTROPHIL 67 %
[2017-09-06 18:11] LABS: GLUCOSE,PLEURAL FLUID 134.756; TOTAL PROTEIN,PLEURAL FLUID 1.823
[2017-09-06] MEDS ORDERED: PT OWN MED DRAWER 7, Y5N ONE (21:31)
[2017-09-07] MEDS ORDERED: PT OWN MED DRAWER 7, Y5N ONE ×2 (02:26→22:43)
[2017-09-07] MEDS: MELATONIN 5 MG TABLETS PO PRN (02:59)
[2017-09-07 07:29] LABS: BASOPHIL 0.3 % (0-2.0); EOSINOPHIL 0.6 % (0-4.5); MCH 28.5 pg (25.7-33.7); MCHC 32.4 g/dl (32.0-35.9); MEAN PLT VOLUME 9.6 fl (7.5-11.1); NEUTROPHILS 87.3 % (42.8-82.8); PLATELET COUNT 318 K/MM3 (134-434); RDW 17.2 % (11.9-15.9); WHITE BLOOD COUNT 10.5 K/mm3 (4.0-10.0)
[2017-09-07 08:11] LABS: ALBUMIN 2.5 g/dl (3.4-5.0); ALK PHOS 122 U/L (45-117); ANION GAP 18 (8-16); BILIRUBIN,TOTAL 0.8 mg/dL (0.2-1.0); CALCIUM 8.3 mg/dL (8.5-10.1); CO2 18 mmol/L (21-32); CREATININE 3.2 mg/dL (0.7-1.3); GLUCOSE,RANDOM 101 mg/dL (74-106); SGOT/AST 17 U/L (15-37); SGPT/ALT 63 U/L (12-78); TOT PROT 5.6 g/dl (6.4-8.2)
[2017-09-07] MEDS: ASPIRIN 81 MG CHEWABLE TABLETS PO SCH (09:04)
[2017-09-07] MEDS: PANTOPRAZOLE 40 MG TABLET (FP) PO SCH (09:04)
[2017-09-07] MEDS: CARVEDILOL 3.125 MG TABLET (FP) PO SCH ×2 (09:04→21:09)
[2017-09-07] MEDS: HEPARIN NA (PORCINE) 5,000 UNITS/ML 1ML VIAL SQ SCH ×2 (09:05→21:09)
[2017-09-07] MEDS: CEFUROXIME AXETIL 250 MG TABLET PO SCH ×2 (09:05→22:19)
--- NOTE | 2017-09-07 11:16 | PN ---
Progress Note, Physician History of Present Illness: S/p right thoracentesis yesterday -> ? how much fluid removed, but much improved CXR Also clinically better - Current Medication List Current Medications: Active Medications Aspirin (Asa -) 81 mg PO DAILY [facility] Last Admin: 09/07/17 09:04 Dose: 81 mg Carvedilol (Coreg -) 6.25 mg PO BID [facility] Last Admin: 09/07/17 09:04 Dose: 6.25 mg Cefuroxime Axetil (Ceftin -) 250 mg PO BID [facility] Last Admin: 09/07/17 09:05 Dose: 250 mg Furosemide (Lasix -) 40 mg PO DAILY [facility] Last Admin: 09/06/17 09:12 Dose: Not Given Guaifenesin (Robitussin -) 10 ml PO Q8H PRN PRN Reason: COUGH Last Admin: 09/06/17 17:37 Dose: 10 ml Heparin Sodium (Porcine) (Heparin -) 5,000 unit SQ BID [facility] Last Admin: 09/07/17 09:05 Dose: 5,000 unit Melatonin (Melatonin) 5 mg PO HS PRN PRN Reason: INSOMNIA Last Admin: 09/07/17 02:59 Dose: 5 mg Pantoprazole Sodium (Protonix -) 40 mg PO DAILY [facility] Last Admin: 09/07/17 09:04 Dose: 40 mg - Objective Vital Signs: Vital Signs Temperature 98 F 09/07/17 10:00 Pulse Rate 75 09/07/17 10:00 Respiratory Rate 18 09/07/17 10:00 Blood Pressure 146/60 09/07/17 10:00 O2 Sat by Pulse Oximetry (%) 95 09/07/17 09:54 Constitutional: Yes: No Distress Eyes: Yes: Conjunctiva Clear HENT: Yes: Atraumatic Neck: Yes: Supple Cardiovascular: Yes: Regular Rate and Rhythm, Murmur (systolic and diastolic) Respiratory: Yes: Wheezes, Other (good breath sounds b/l). No: Rales, Rhonchi Gastrointestinal: Yes: Normal Bowel Sounds, Soft Edema: No Peripheral Pulses WNL: Yes Neurological: Yes: Alert, Oriented Psychiatric: Yes: Alert, Oriented Labs: CBC, BMP 09/07/17 05:20 09/07/17 05:20 INR, PTT INR 1.31 (0.82-1.09) H 08/29/17 16:24 - ....Imaging Chest X-ray: Report Reviewed, Image Reviewed Assessment/Plan 72 yo male with HTN, severe AR, severe MR, chronic systolic heart failure, who was admitted with SOB/FISCHER x 4 days. Patient was on admission with some evidence of fluid overload -> small effusions and orthopnea (though no wt gain or LE edema). However, the BNP (155, 918) seemed elevated out of proportion to the degree of CHF -> may be in part due to renal failure. 08/31/17 Echo: Moderately dilated LV with severely reduced systolic function, severe AR, severe MR, severe CO, moderate biatrial enlargement, moderate aortic root dilatation, and RVSP 44.8 mmHg. Empirically treated for pneumonia given RLL infiltrate and elevated WBC on admission, but no fevers and no other symptoms Urine culture positive for staph & strep or enterococcus No evidence of ACS initially -> now indeterminate trop I in setting of worsening RF -> not diagnostic of ACS Patient was initially on dopamine gtt for hypotension with SBP 80s -> may be secondary to dehydration in setting of severe valvular disease and LV dysfunction (EF now 15%). Currently hemodynamically stable off dopamine gtt Treated with furosemide 40 mg IV daily Renal function was improving -. now numbers going up -> ? becoming dry Swicthed to PO lasix Tuesday -. numbers still going up Wt still going down Exam c/w right pl effusion CXR also consistent -. thoracentesis recommended S/p right thoracentesis (09/06/17) with clinical improvement -> transudative fluid At this point, I think we have to strongly consider transferring him for cardiac cath in anticipation of valve surgery, which means also the possibility of him ending up on HD. I spoke to Dr Lo (renal) -> he is trying to r/p hydro with nuclear scan which was already done, but not yet read -> if hydro, will need urology eval. If not, will try gentle hydration to see if kidneys improve a bit Lasix on hold today RECS: Cont holding lasix Follow on nuclear med study of kidneys -> management according to findings Monitor lytes and renal function with diuresis. Cont carvedilol to 6.255 mg po bid (holding parameters for SBP < 100 mmHg or HR < 50 bpm) No CATHLEEN-I/ARB given renal failure Patient is agreeable to eventually undergoing evaluation for valve surgery. However, he will need right and left cardiac catheterization prior to that . INitilly, we were trying to see if we can get him home, let his kidneys recover longer nd then do outpt cath. However, thsi may not be a viable course of action given his course. We discussed the option of transferring him this hospitaliztion and the possibility of him ending up on HD. He is thinking about the issues and will let us know Per IM/renal D/W Dr Lo
--- NOTE | 2017-09-07 11:42 | PN ---
Progress Note, Physician History of Present Illness: PULMONARY ALERT,FEELING BETTER,SOB IMPROVING. PT S/P THORACENTESIS PLEURAL FLUID C/W TRANSUDATE - Current Medication List Current Medications: Active Medications Aspirin (Asa -) 81 mg PO DAILY [facility] Last Admin: 09/07/17 09:04 Dose: 81 mg Carvedilol (Coreg -) 6.25 mg PO BID [facility] Last Admin: 09/07/17 09:04 Dose: 6.25 mg Cefuroxime Axetil (Ceftin -) 250 mg PO BID [facility] Last Admin: 09/07/17 09:05 Dose: 250 mg Furosemide (Lasix -) 40 mg PO DAILY [facility] Last Admin: 09/06/17 09:12 Dose: Not Given Guaifenesin (Robitussin -) 10 ml PO Q8H PRN PRN Reason: COUGH Last Admin: 09/06/17 17:37 Dose: 10 ml Heparin Sodium (Porcine) (Heparin -) 5,000 unit SQ BID [facility] Last Admin: 09/07/17 09:05 Dose: 5,000 unit Melatonin (Melatonin) 5 mg PO HS PRN PRN Reason: INSOMNIA Last Admin: 09/07/17 02:59 Dose: 5 mg Pantoprazole Sodium (Protonix -) 40 mg PO DAILY [facility] Last Admin: 09/07/17 09:04 Dose: 40 mg - Objective Vital Signs: Vital Signs Temperature 98 F 09/07/17 10:00 Pulse Rate 75 09/07/17 10:00 Respiratory Rate 18 09/07/17 10:00 Blood Pressure 146/60 09/07/17 10:00 O2 Sat by Pulse Oximetry (%) 95 09/07/17 09:54 Constitutional: Yes: Calm, Thin Eyes: Yes: WNL HENT: Yes: WNL Neck: Yes: WNL Cardiovascular: Yes: Regular Rate and Rhythm, S1, S2 Respiratory: Yes: Rales (FEW BIBASILAR CRACKLES) Gastrointestinal: Yes: Normal Bowel Sounds, Soft Extremities: Yes: WNL Edema: No Labs: CBC, BMP 09/07/17 05:20 09/07/17 05:20 INR, PTT INR 1.31 (0.82-1.09) H 08/29/17 16:24 Problem List - Problems (1) Respiratory distress Code(s): R06.00 - DYSPNEA, UNSPECIFIED (2) Shortness of breath Code(s): R06.02 - SHORTNESS OF BREATH (3) CHF (congestive heart failure) Code(s): I50.9 - HEART FAILURE, UNSPECIFIED Qualifiers: Congestive heart failure type: unspecified congestive heart failure type Congestive heart failure chronicity: unspecified congestive heart failure chronicity Qualified Code(s): I50.9 - Heart failure, unspecified (4) HTN (hypertension) Code(s): I10 - ESSENTIAL (PRIMARY) HYPERTENSION Assessment/Plan ASSESSMENT AND PLAN: Acute on Chronic Systolic Heart Failure improving Severe Mitral Regurgitation Tricuspid/Pulmonic Regurgitation R pleural effusion transudate HTN h/o DVT - PO lasix - monitor urine output, creatinine - O2 to keep SpO2 >90% - PO as tolerated - DVT prophylaxis DR DICKINSON
--- NOTE | 2017-09-07 14:25 | PN ---
Progress Note (short form) - Note Progress Note: Renal Follow up for FABIAN on CKD Pt seen and examined at the bedside feels much better s/p thoracentesis denies any sob at this time no chest pain, abd pain, N/V/D making urine via herrera Vital Signs Temperature 97.3 F L 09/07/17 13:38 Pulse Rate 76 09/07/17 13:38 Respiratory Rate 18 09/07/17 13:38 Blood Pressure 135/58 09/07/17 13:38 O2 Sat by Pulse Oximetry (%) 95 09/07/17 09:54 Intake & Output 09/04/17 09/05/17 09/06/17 09/07/17 23:59 23:59 23:59 23:59 Intake Total 730 330 260 320 Output Total 302 234 1947 250 Balance 130 -270 -1040 70 Weight 44.543 kg 44.089 kg 43.636 kg 42.184 kg NAD on NC O2 RRR, NO M/R Dec Bs right lung base, normal BS left lung soft NT/ND No LE edema CBC, BMP 09/07/17 05:20 09/07/17 05:20 Current Medications Aspirin (Asa -) 81 mg PO DAILY [facility] Last Admin: 09/07/17 09:04 Dose: 81 mg Carvedilol (Coreg -) 6.25 mg PO BID [facility] Last Admin: 09/07/17 09:04 Dose: 6.25 mg Cefuroxime Axetil (Ceftin -) 250 mg PO BID [facility] Last Admin: 09/07/17 09:05 Dose: 250 mg Furosemide (Lasix -) 40 mg PO DAILY [facility] Last Admin: 09/06/17 09:12 Dose: Not Given Guaifenesin (Robitussin -) 10 ml PO Q8H PRN PRN Reason: COUGH Last Admin: 09/06/17 17:37 Dose: 10 ml Heparin Sodium (Porcine) (Heparin -) 5,000 unit SQ BID [facility] Last Admin: 09/07/17 09:05 Dose: 5,000 unit Melatonin (Melatonin) 5 mg PO HS PRN PRN Reason: INSOMNIA Last Admin: 09/07/17 02:59 Dose: 5 mg Pantoprazole Sodium (Protonix -) 40 mg PO DAILY [facility] Last Admin: 09/07/17 09:04 Dose: 40 mg This is a 72 year old Gentleman with PMhx of CKD Stage 3 (baseline Cr 1.5-1.8), Hx of B/L hydronephrosis secondary to BPH now s/p TURP, Hypertension, CHF/ Valvuar disease, Hx of DVT who presents to the ED with complaints of SOB, LE weakness with viral prodrome and found to have FABIAN with Cr of 2.5-> 3.7. #Acute Renal Failure BUN/Cr remains high despite holding Lasix yesterday s/p renal scan but results are pending continue to hold diuretics if Renal scan shows no obstruction will give trial of IVF Urology follow up dose all meds for Cr Cl less then 15 no acute indication for [employer] #CHF Cardiology following holding lasix s/p thoracentesis off dopamine gtt No CATHLEEN/ARB given renal injury #Sepsis on Abx clinically improved case discussed with Cardiology who is in agreement Flex Lo DO Problem List - Problems (1) Acute renal failure Code(s): N17.9 - ACUTE KIDNEY FAILURE, UNSPECIFIED Qualifiers: Acute renal failure type: unspecified Qualified Code(s): N17.9 - Acute kidney failure, unspecified (2) Respiratory distress Code(s): R06.00 - DYSPNEA, UNSPECIFIED (3) Shortness of breath Code(s): R06.02 - SHORTNESS OF BREATH (4) CHF (congestive heart failure) Code(s): I50.9 - HEART FAILURE, UNSPECIFIED Qualifiers: Congestive heart failure type: unspecified congestive heart failure type Congestive heart failure chronicity: unspecified congestive heart failure chronicity Qualified Code(s): I50.9 - Heart failure, unspecified (5) Sepsis Code(s): A41.9 - SEPSIS, UNSPECIFIED ORGANISM
--- NOTE | 2017-09-07 15:35 | PN ---
Physical Exam: SUBJECTIVE: Patient seen and examined, states his breathing is improvied OBJECTIVE: discussed plan of care with Dr. Resendiz, [employer] administrator Renal NM scan pending Vital Signs Period Temp Pulse Resp BP Sys/Martinez Pulse Ox Last 24 Hr 97.2 F-98 F 68-76 18-20 126-146/55-78 94-96 GENERAL: The patient is awake, alert, and fully oriented, in moderate respiratory distress, HEAD: Normal with no signs of trauma. EYES: PERRL, extraocular movements intact, sclera anicteric, conjunctiva clear. No ptosis. ENT: Ears normal, nares patent, oropharynx clear without exudates, moist mucous membranes. NECK: Trachea midline, full range of motion, supple. LUNGS: s/p right ultraound guided thoracentesis on 09/06/2017, report pending HEART: NSR ABDOMEN:concave EXTREMITIES: no edema. NEUROLOGICAL: Normal speech, conversational dyspnea, gait not observed. PSYCH: Normal mood, normal affect. SKIN: Warm, dry, normal turgor, no rashes or lesions noted Laboratory Results - last 24 hr 09/06/17 09/07/17 09/07/17 16:00 05:20 05:20 WBC 10.5 H RBC 4.05 Hgb 11.5 L Hct 35.6 MCV 88.0 MCH 28.5 MCHC 32.4 RDW 17.2 H Plt Count 318 MPV 9.6 Neutrophils % 87.3 H Lymphocytes % 4.5 L D Monocytes % 7.3 Eosinophils % 0.6 Basophils % 0.3 Sodium 135 L Potassium 3.7 Chloride 99 Carbon Dioxide 18 L Anion Gap 18 H BUN 110 H* Creatinine 3.2 H Creat Clearance w eGFR 19.30 Random Glucose 101 Calcium 8.3 L Total Bilirubin 0.8 AST 17 D ALT 63 Alkaline Phosphatase 122 H Total Protein 5.6 L Albumin 2.5 L Pleural Fluid Source Pleural Pleural Color Yellow Pleural Appearance Hazy Pleural WBC 56390 Pleural RBC 437 Pleural Neutrophils 67 Pleural Lymphocytes 16 Pleural Monocytes 17 Pleural Total Protein 1.823 Pleural Albumin 1 Pleural LDH 135 Pleural Glucose 134.756 Pleural Amylase 33.000 Pleural Triglycerides 15 Active Medications Generic Name Dose Route Start Last Admin Trade Name Freq PRN Reason Stop Dose Admin Aspirin 81 mg 09/02/17 10:00 09/07/17 09:04 Asa - PO 81 mg DAILY [facility] Administration Carvedilol 6.25 mg 09/04/17 10:26 09/07/17 09:04 Coreg - PO 6.25 mg BID [facility] Administration Cefuroxime Axetil 250 mg 09/05/17 13:00 09/07/17 09:05 Ceftin - PO 250 mg BID [facility] Administration Furosemide 40 mg 09/05/17 10:00 09/06/17 09:12 Lasix - PO Not Given DAILY [facility] Guaifenesin 10 ml 09/06/17 17:19 09/06/17 17:37 Robitussin - PO 10 ml Q8H PRN Administration COUGH Heparin Sodium (Porcine) 5,000 unit 09/01/17 22:00 09/07/17 09:05 Heparin - SQ 5,000 unit BID [facility] Administration Melatonin 5 mg 09/04/17 21:19 09/07/17 02:59 Melatonin PO 5 mg HS PRN Administration INSOMNIA Pantoprazole Sodium 40 mg 09/06/17 10:00 09/07/17 09:04 Protonix - PO 40 mg DAILY [facility] Administration ASSESSMENT/PLAN: Patient is a 72 year old male with a significant past medical history of CHF, HTN, hyperlipidemia, CVA vs. TIA, DVT, BPH, CKD who presented to the ED on 2016 with shortness of breath, dyspnea on exertion and lower extremity weakness. Imaging: Echo 08/2017 shows LV systolic function severely reduced, moderate tricuspid thickening. Moderate to severe tricuspid regurgitation. Severe aortic regurgitation, severe pulmonic regurgitation, severe global hypokinesis, a vegetation on the mitral valve cannot be excluded Previous Echo on 04/09 shows EF 45%, with valvular cardiomyopathy progression, LV mod dilated, cardiomyopathy has progressed since 12/30/2016 Cardiology: Acute on chronic severe systolic heart failure EF now 15%, previously 55% on 01/07 Echo as above Blood cultures negative to date On Lasix 40mg daily, Coreg 6.25mg bid Plan is for patient to have a right and left cardiac cath prior to valve surgery , once renal function is stable Renal NM scan pending, if patient has hydronephrosis, will get urology consult, if no hydro, may trial IVF as per renal Pulmonary: Acute hypoxic respiratory failure,in the setting of worsening CHF Community acquired pneumonia On 4 liters nasal cannula, bipap as needed On Ceftin as per ID Patient is s/p right ultrasound guided thoracentesis on 09/06/2017, official report pending Renal: FABIAN on CKD stage 3, creatinine 3.2 Continue to trend, monitor intake and output Renal scan pending F.E.N. Fluids: none/PO only Electrolytes: monitor and replete Nutrition: low sodium Prophylaxis Heparin Protonix Full code
--- NOTE | 2017-09-07 17:09 | PATH ---
Cytology Non-Gynecological Report Patient Name: THEODORE MARI Med. Rec. #: [id number] /Age/Gender: 1945 (Age: 72) / M Account: [id number] Location: 4 W TELEMETRY U Taken: 09/06/2017 Received: 09/06/2017 Reported: 09/07/2017 Physicians: Angely Joseph AGACNP Specimen(s) Received A: RIGHT PLEURAL FLUID B: RIGHT PLEURAL FLUID Clinical History Pleural effusion,CHF Final Diagnosis A. PLEURAL FLUID, RIGHT, THORACENTESIS: SATISFACTORY FOR EVALUATION NO MALIGNANT CELLS IDENTIFIED. MESOTHELIAL CELLS AND FEW NEUTROPHILS PRESENT. B. PLEURAL FLUID, RIGHT, THORACENTESIS: SATISFACTORY FOR EVALUATION NO MALIGNANT CELLS IDENTIFIED. MESOTHELIAL CELLS AND FEW NEUTROPHILS PRESENT. Electronically Signed Hemalatha Ferguson M.D. Gross Description A. Approximately 50 cc of bloody fluid received fixed in 50% alcohol. Two cytofunnels and one cellblock prepared. B. Approximately 1500 cc of bloody fluid received fresh. Two cytofunnels and one cellblock prepared.
[2017-09-07] MEDS: SODIUM CHLORIDE 1,000 ML IV SCH (17:27)
[2017-09-08 07:00] LABS: BASOPHIL 0.5 % (0-2.0); MCH 28.2 pg (25.7-33.7); MCHC 32.3 g/dl (32.0-35.9); MEAN CELL VOLUME 87.1 fl (80-96); MEAN PLT VOLUME 9.2 fl (7.5-11.1); NEUTROPHILS 85.8 % (42.8-82.8); PLATELET COUNT 325 K/MM3 (134-434); RDW 17.2 % (11.9-15.9); WHITE BLOOD COUNT 10.9 K/mm3 (4.0-10.0)
[2017-09-08 07:24] LABS: ALBUMIN 2.4 g/dl (3.4-5.0); ANION GAP 16 (8-16); CALCIUM 8.1 mg/dL (8.5-10.1); CO2 18 mmol/L (21-32); GLUCOSE,RANDOM 118 mg/dL (74-106)
[2017-09-08 07:31] LABS: ALK PHOS 111 U/L (45-117); BILIRUBIN,TOTAL 0.5 mg/dL (0.2-1.0); SGOT/AST 18 U/L (15-37); SGPT/ALT 54 U/L (12-78); TOT PROT 5.4 g/dl (6.4-8.2)
[2017-09-08] MEDS: CEFUROXIME AXETIL 250 MG TABLET PO SCH (09:05)
[2017-09-08] MEDS: PANTOPRAZOLE 40 MG TABLET (FP) PO SCH (09:05)
[2017-09-08] MEDS: CARVEDILOL 3.125 MG TABLET (FP) PO SCH ×2 (09:05→21:26)
[2017-09-08] MEDS: ASPIRIN 81 MG CHEWABLE TABLETS PO SCH (09:05)
[2017-09-08] MEDS: HEPARIN NA (PORCINE) 5,000 UNITS/ML 1ML VIAL SQ SCH (09:05)
[2017-09-08] MEDS: SODIUM CHLORIDE 1,000 ML IV SCH (09:07)
--- NOTE | 2017-09-08 12:40 | PN ---
Progress Note (short form) - Note Progress Note: PULMONARY Breathing better today. No chest pain. No fevers or chills. Last Vital Signs Temp Pulse Resp BP Pulse Ox 97.5 F L 67 20 121/52 96 09/08/17 05:00 09/08/17 05:00 09/08/17 05:00 09/08/17 05:00 09/08/17 09:00 Gen: NAD at rest Heart: RRR Lung: decreased breath sounds right base Abd: soft, nontender Ext: no edema CBC, BMP 09/08/17 05:10 09/08/17 05:10 Active Medications Aspirin (Asa -) 81 mg PO DAILY [facility] Last Admin: 09/08/17 09:05 Dose: 81 mg Carvedilol (Coreg -) 6.25 mg PO BID [facility] Last Admin: 09/08/17 09:05 Dose: 6.25 mg Cefuroxime Axetil (Ceftin -) 250 mg PO BID [facility] Last Admin: 09/08/17 09:05 Dose: 250 mg Furosemide (Lasix -) 40 mg PO DAILY [facility] Last Admin: 09/06/17 09:12 Dose: Not Given Guaifenesin (Robitussin -) 10 ml PO Q8H PRN PRN Reason: COUGH Last Admin: 09/06/17 17:37 Dose: 10 ml Heparin Sodium (Porcine) (Heparin -) 5,000 unit SQ BID [facility] Last Admin: 09/08/17 09:05 Dose: 5,000 unit Sodium Chloride (Normal Saline -) 1,000 mls @ 75 mls/hr IV ASDIR [facility] Stop: 09/08/17 16:59 Last Admin: 09/08/17 09:07 Dose: 75 mls/hr Melatonin (Melatonin) 5 mg PO HS PRN PRN Reason: INSOMNIA Last Admin: 09/07/17 02:59 Dose: 5 mg Pantoprazole Sodium (Protonix -) 40 mg PO DAILY [facility] Last Admin: 09/08/17 09:05 Dose: 40 mg A/P Acute on Chronic Systolic Heart Failure Severe Mitral Regurgitation Tricuspid/Pulmonic Regurgitation Right Pleural Effusion s/p thoracentesis - Transudate Acute on Chronic Renal Failure HTN h/o DVT - started on IVF - monitor urine output, creatinine - O2 to keep SpO2 >90% - complete empiric antibiotics - PO as tolerated - DVT prophylaxis
[2017-09-08] MEDS: FUROSEMIDE 40 MG TABLET (FP) PO SCH (15:06)
--- NOTE | 2017-09-08 15:36 | PN ---
Progress Note (short form) - Note Progress Note: Renal Follow up for FABIAN on CKD Pt seen and examined at the bedside reports feeling a little worse today reports that he could not sleep no sob, chest pain no cough on NS Vital Signs Temperature 97.6 F 09/08/17 14:27 Pulse Rate 70 09/08/17 14:27 Respiratory Rate 18 09/08/17 14:27 Blood Pressure 126/61 09/08/17 14:27 O2 Sat by Pulse Oximetry (%) 96 09/08/17 09:00 Intake & Output 09/05/17 09/06/17 09/07/17 09/08/17 23:59 23:59 23:59 23:59 Intake Total 330 077 855 0959 Output Total 600 1300 1250 500 Balance -270 -1040 -680 500 Weight 44.089 kg 43.636 kg 42.184 kg 42.694 kg NAD on NC O2 RRR, NO M/R rales right lung base soft NT/ND No LE edema CBC, BMP 09/08/17 05:10 09/08/17 05:10 Current Medications Aspirin (Asa -) 81 mg PO DAILY [facility] Last Admin: 09/08/17 09:05 Dose: 81 mg Carvedilol (Coreg -) 6.25 mg PO BID [facility] Last Admin: 09/08/17 09:05 Dose: 6.25 mg Furosemide (Lasix -) 40 mg PO DAILY [facility] Last Admin: 09/08/17 15:06 Dose: Not Given Guaifenesin (Robitussin -) 10 ml PO Q8H PRN PRN Reason: COUGH Last Admin: 09/06/17 17:37 Dose: 10 ml Heparin Sodium (Porcine) (Heparin -) 5,000 unit SQ BID [facility] Last Admin: 09/08/17 09:05 Dose: 5,000 unit Sodium Chloride (Normal Saline -) 1,000 mls @ 75 mls/hr IV ASDIR [facility] Stop: 09/08/17 16:59 Last Admin: 09/08/17 09:07 Dose: 75 mls/hr Melatonin (Melatonin) 5 mg PO HS PRN PRN Reason: INSOMNIA Last Admin: 09/07/17 02:59 Dose: 5 mg Pantoprazole Sodium (Protonix -) 40 mg PO DAILY [facility] Last Admin: 09/08/17 09:05 Dose: 40 mg This is a 72 year old Gentleman with PMhx of CKD Stage 3 (baseline Cr 1.5-1.8), Hx of B/L hydronephrosis secondary to BPH now s/p TURP, Hypertension, CHF/ Valvuar disease, Hx of DVT who presents to the ED with complaints of SOB, LE weakness with viral prodrome and found to have FABIAN with Cr of 2.5-> 3.7. #Acute Renal Failure renal function with slight improvement today s/p IVF making urine CXR shows infiltrate in RLL as opposed to effusion and thus will continue IVF for now monitor repiratory status closely dose all meds for Cr Cl less then 20 no indication for BAND SPLITTER at this time #CHF/CAD/Valvular disease Cardiology following holding lasix s/p thoracentesis off dopamine gtt No CATHLEEN/ARB given renal injury #Sepsis on Abx clinically improved Flex Lo DO Problem List - Problems (1) Acute renal failure Code(s): N17.9 - ACUTE KIDNEY FAILURE, UNSPECIFIED Qualifiers: Acute renal failure type: unspecified Qualified Code(s): N17.9 - Acute kidney failure, unspecified (2) Respiratory distress Code(s): R06.00 - DYSPNEA, UNSPECIFIED (3) Shortness of breath Code(s): R06.02 - SHORTNESS OF BREATH (4) CHF (congestive heart failure) Code(s): I50.9 - HEART FAILURE, UNSPECIFIED Qualifiers: Congestive heart failure type: unspecified congestive heart failure type Congestive heart failure chronicity: unspecified congestive heart failure chronicity Qualified Code(s): I50.9 - Heart failure, unspecified (5) Sepsis Code(s): A41.9 - SEPSIS, UNSPECIFIED ORGANISM
--- NOTE | 2017-09-08 16:58 | PN ---
Physical Exam: SUBJECTIVE: Patient seen and examined at the bedside. He denies any shortness of breath. Denies chest pain. OBJECTIVE: Vital Signs Period Temp Pulse Resp BP Sys/Martinez Pulse Ox Last 24 Hr 97.5 F-98.2 F 65-70 18-20 121-149/51-61 96-97 GENERAL: The patient is awake, alert, and fully oriented, in moderate respiratory distress, HEAD: Normal with no signs of trauma. EYES: PERRL, extraocular movements intact, sclera anicteric, conjunctiva clear. No ptosis. ENT: Ears normal, nares patent, oropharynx clear without exudates, moist mucous membranes. NECK: Trachea midline, full range of motion, supple. LUNGS: s/p right ultraound guided thoracentesis on 09/06/2017 HEART: NSR ABDOMEN:concave EXTREMITIES: no edema. NEUROLOGICAL: Normal speech, conversational dyspnea, gait not observed. PSYCH: Normal mood, normal affect. SKIN: Warm, dry, normal turgor, no rashes or lesions noted Laboratory Results - last 24 hr 09/08/17 09/08/17 05:10 05:10 WBC 10.9 H RBC 3.97 L Hgb 11.2 L Hct 34.6 L MCV 87.1 MCH 28.2 MCHC 32.3 RDW 17.2 H Plt Count 325 MPV 9.2 Neutrophils % 85.8 H Lymphocytes % 3.5 L D Monocytes % 8.2 Eosinophils % 2.0 D Basophils % 0.5 Sodium 136 Potassium 3.6 Chloride 102 Carbon Dioxide 18 L Anion Gap 16 BUN 107 H* Creatinine 3.0 H Creat Clearance w eGFR 20.79 Random Glucose 118 H Calcium 8.1 L Total Bilirubin 0.5 D AST 18 ALT 54 Alkaline Phosphatase 111 Total Protein 5.4 L Albumin 2.4 L Active Medications Generic Name Dose Route Start Last Admin Trade Name Freq PRN Reason Stop Dose Admin Aspirin 81 mg 09/02/17 10:00 09/08/17 09:05 Asa - PO 81 mg DAILY [facility] Administration Carvedilol 6.25 mg 09/04/17 10:26 09/08/17 09:05 Coreg - PO 6.25 mg BID [facility] Administration Guaifenesin 10 ml 09/06/17 17:19 09/06/17 17:37 Robitussin - PO 10 ml Q8H PRN Administration COUGH Heparin Sodium (Porcine) 5,000 unit 09/01/17 22:00 09/08/17 09:05 Heparin - SQ 5,000 unit BID [facility]IO Administration Sodium Chloride 1,000 mls @ 75 mls/hr 09/07/17 17:00 09/08/17 09:07 Normal Saline - IV 09/08/17 16:59 75 mls/hr ASDIR ELIO Administration Melatonin 5 mg 09/04/17 21:19 09/07/17 02:59 Melatonin PO 5 mg HS PRN Administration INSOMNIA Pantoprazole Sodium 40 mg 09/06/17 10:00 09/08/17 09:05 Protonix - PO 40 mg DAILY [facility] Administration ASSESSMENT/PLAN: Patient is a 72 year old male with a significant past medical history of CHF, HTN, hyperlipidemia, CVA vs. TIA, DVT, BPH, CKD who presented to the ED on 2016 with shortness of breath, dyspnea on exertion and lower extremity weakness. Imaging: Echo 08/2017 shows LV systolic function severely reduced, moderate tricuspid thickening. Moderate to severe tricuspid regurgitation. Severe aortic regurgitation, severe pulmonic regurgitation, severe global hypokinesis, a vegetation on the mitral valve cannot be excluded Previous Echo on 04/09 shows EF 45%, with valvular cardiomyopathy progression, LV mod dilated, cardiomyopathy has progressed since 12/30/2016 Chest Xray 09/08/2017: Interval interstitial opaciteis in the righ lung with atelectatic changes/airspace disease in the right lung base and a small right p leural effusion likely representing pneumonia. Unilateral mild pulmonary venous congestion cannot be excluded. Cardiology: Acute on chronic severe systolic heart failure EF now 15%, previously 55% on 01/07 Echo as above Blood cultures negative to date Hold today's dose of Lasix Coreg 6.25mg bid Plan is for patient to have a right and left cardiac cath prior to valve surgery , once renal function is stable Renal NM reviewed, patient started on NS @75cc/hr by Renal, monitor bun/ creatinine Pulmonary: Acute hypoxic respiratory failure,in the setting of worsening CHF Community acquired pneumonia On 4 liters nasal cannula, bipap as needed On Ceftin as per ID Patient is s/p right ultrasound guided thoracentesis on 09/06/2017, 1360 of fluid removed from right pleural space Renal: FABIAN on CKD stage 3, creatinine 3.0 Continue to trend, monitor intake and output On IVF as per renal F.E.N. Fluids: none/PO only Electrolytes: monitor and replete Nutrition: low sodium Prophylaxis Heparin Protonix Full code
--- NOTE | 2017-09-08 18:22 | PN ---
Progress Note, Physician History of Present Illness: IVF d/c d at around 5 PM )(received 1.7 since last night Says he now feels better compared to when the IVF was going in -> w/o lasix I wonder about anxiety playing a part in symptoms - Current Medication List Current Medications: Active Medications Aspirin (Asa -) 81 mg PO DAILY [facility] Last Admin: 09/08/17 09:05 Dose: 81 mg Carvedilol (Coreg -) 6.25 mg PO BID [facility] Last Admin: 09/08/17 09:05 Dose: 6.25 mg Guaifenesin (Robitussin -) 10 ml PO Q8H PRN PRN Reason: COUGH Last Admin: 09/06/17 17:37 Dose: 10 ml Heparin Sodium (Porcine) (Heparin -) 5,000 unit SQ BID [facility] Last Admin: 09/08/17 09:05 Dose: 5,000 unit Melatonin (Melatonin) 5 mg PO HS PRN PRN Reason: INSOMNIA Last Admin: 09/07/17 02:59 Dose: 5 mg Pantoprazole Sodium (Protonix -) 40 mg PO DAILY [facility] Last Admin: 09/08/17 09:05 Dose: 40 mg - Objective Vital Signs: Vital Signs Temperature 97.6 F 09/08/17 14:27 Pulse Rate 70 09/08/17 14:27 Respiratory Rate 18 09/08/17 14:27 Blood Pressure 126/61 09/08/17 14:27 O2 Sat by Pulse Oximetry (%) 96 09/08/17 09:00 Constitutional: Yes: No Distress, Cachectic Eyes: Yes: Conjunctiva Clear HENT: Yes: Atraumatic Neck: Yes: Supple Cardiovascular: Yes: Regular Rate and Rhythm, Murmur (systolioc and diastolic) Respiratory: Yes: Other (decr at bases). No: Rales, Rhonchi, Wheezes Gastrointestinal: Yes: Normal Bowel Sounds, Soft Edema: No Peripheral Pulses WNL: Yes Neurological: Yes: Alert, Oriented Psychiatric: Yes: Alert, Oriented Labs: CBC, BMP 09/08/17 05:10 09/08/17 05:10 INR, PTT INR 1.31 (0.82-1.09) H 08/29/17 16:24 Assessment/Plan 72 yo male with HTN, severe AR, severe MR, chronic systolic heart failure, who was admitted with SOB/FISCHER x 4 days. Patient was on admission with some evidence of fluid overload -> small effusions and orthopnea (though no wt gain or LE edema). However, the BNP (155, 918) seemed elevated out of proportion to the degree of CHF -> may be in part due to renal failure. 08/31/17 Echo: Moderately dilated LV with severely reduced systolic function, severe AR, severe MR, severe NE, moderate biatrial enlargement, moderate aortic root dilatation, and RVSP 44.8 mmHg. Empirically treated for pneumonia given RLL infiltrate and elevated WBC on admission, but no fevers and no other symptoms Urine culture positive for staph & strep or enterococcus No evidence of ACS initially -> now indeterminate trop I in setting of worsening RF -> not diagnostic of ACS Patient was initially on dopamine gtt for hypotension with SBP 80s -> may be secondary to dehydration in setting of severe valvular disease and LV dysfunction (EF now 15%). Currently hemodynamically stable off dopamine gtt Treated with furosemide 40 mg IV daily Renal function was improving -. now numbers going up -> ? becoming dry Swicthed to PO lasix Tuesday -. numbers still going up Wt still going down Exam c/w right pl effusion CXR also consistent -. thoracentesis recommended S/p right thoracentesis (09/06/17) , 1.360 l -> with clinical improvement -> transudative fluid At this point, I think we have to strongly consider transferring him for cardiac cath in anticipation of valve surgery, which means also the possibility of him ending up on HD. I spoke to Dr Lo (renal) -> r/o hydro with nuclear scan -> decided to gently hydrate pt Lasix on hold Renal fxn sl better today Pt with SOB -. improved immediately after stopping IVF, making me think about anxiety playing a part RECS: Keep IVF off for now Cont holding lasix poday Monitor lytes and renal function in AM -. consider resuming IVF based on numbers and clinical pictures Cont carvedilol to 6.255 mg po bid (holding parameters for SBP < 100 mmHg or HR < 50 bpm) No CATHLEEN-I/ARB given renal failure Patient is agreeable to eventually undergoing evaluation for valve surgery. However, he will need right and left cardiac catheterization prior to that . Initially, we were trying to see if we can get him home, let his kidneys recover longer nd then do outpt cath. However, this may not be a viable course of action given his course. We discussed the option of transferring him this hospitaliztion and the possibility of him ending up on HD. He is thinking about the issues and will let us know I spoke t length with a family friend (ex brother-in law), Mr Lara, with pt's permission -> he will be trying to help him through the decision making process D/W RN
[2017-09-09] MEDS: MELATONIN 5 MG TABLETS PO PRN (01:16)
[2017-09-09] MEDS: guaiFENesin 200 MG/10 ML 10 ML UNIT-DOSE CUPS PO PRN (01:16)
[2017-09-09] MEDS: HEPARIN NA (PORCINE) 5,000 UNITS/ML 1ML VIAL SQ SCH ×3 (01:17→21:54)
[2017-09-09 07:38] LABS: BASOPHIL 0.4 % (0-2.0); EOSINOPHIL 1.2 % (0-4.5); MCH 27.7 pg (25.7-33.7); MCHC 31.6 g/dl (32.0-35.9); MEAN CELL VOLUME 87.7 fl (80-96); MEAN PLT VOLUME 9.3 fl (7.5-11.1); NEUTROPHILS 88.5 % (42.8-82.8); PLATELET COUNT 339 K/MM3 (134-434); RDW 16.4 % (11.9-15.9); WHITE BLOOD COUNT 11.1 K/mm3 (4.0-10.0)
[2017-09-09 08:20] LABS: ANION GAP 17 (8-16); CALCIUM 9.1 mg/dL (8.5-10.1); CO2 16 mmol/L (21-32); CREATININE 2.7 mg/dL (0.7-1.3); GLUCOSE,RANDOM 98 mg/dL (74-106); MAGNESIUM 2.9 mg/dL (1.8-2.4)
[2017-09-09] MEDS: CARVEDILOL 3.125 MG TABLET (FP) PO SCH ×2 (09:08→21:54)
[2017-09-09] MEDS: ASPIRIN 81 MG CHEWABLE TABLETS PO SCH (09:08)
[2017-09-09] MEDS: PANTOPRAZOLE 40 MG TABLET (FP) PO SCH (09:09)
--- NOTE | 2017-09-09 09:42 | PN ---
Progress Note, Physician History of Present Illness: No new complaints. Patient states that he has not made a decision regarding hemodialysis in the future or proceeding with his cardiac catheteriztion. - Current Medication List Current Medications: Active Medications Aspirin (Asa -) 81 mg PO DAILY [facility] Last Admin: 09/09/17 09:08 Dose: 81 mg Carvedilol (Coreg -) 6.25 mg PO BID [facility] Last Admin: 09/09/17 09:08 Dose: 6.25 mg Guaifenesin (Robitussin -) 10 ml PO Q8H PRN PRN Reason: COUGH Last Admin: 09/09/17 01:16 Dose: 10 ml Heparin Sodium (Porcine) (Heparin -) 5,000 unit SQ BID [facility] Last Admin: 09/09/17 09:08 Dose: 5,000 unit Melatonin (Melatonin) 5 mg PO HS PRN PRN Reason: INSOMNIA Last Admin: 09/09/17 01:16 Dose: 5 mg Pantoprazole Sodium (Protonix -) 40 mg PO DAILY [facility] Last Admin: 09/09/17 09:09 Dose: 40 mg - Objective Vital Signs: Vital Signs Temperature 98.6 F 09/09/17 05:10 Pulse Rate 73 09/09/17 05:10 Respiratory Rate 20 09/09/17 05:10 Blood Pressure 134/59 09/09/17 05:10 O2 Sat by Pulse Oximetry (%) 96 09/08/17 22:00 Constitutional: Yes: No Distress Eyes: Yes: Conjunctiva Clear, EOM Intact HENT: Yes: Atraumatic, Normocephalic Cardiovascular: Yes: Regular Rate and Rhythm, Murmur Respiratory: Yes: CTA Bilaterally Gastrointestinal: Yes: Normal Bowel Sounds. No: Soft, Tenderness Edema: No Neurological: Yes: Alert, Oriented, Cran Nerves II-XII Intact Psychiatric: Yes: Alert, Oriented Labs: CBC, BMP 09/09/17 05:25 09/09/17 05:25 INR, PTT INR 1.31 (0.82-1.09) H 08/29/17 16:24 Assessment/Plan 72 yo male with HTN, severe AR, severe MR, chronic systolic heart failure, who was admitted with SOB/FISCHER x 4 days. Patient was on admission with some evidence of fluid overload -> small effusions and orthopnea (though no wt gain or LE edema). However, the BNP (155, 918) seemed elevated out of proportion to the degree of CHF -> may be in part due to renal failure. 08/31/17 Echo: Moderately dilated LV with severely reduced systolic function, severe AR, severe MR, severe [place], moderate biatrial enlargement, moderate aortic root dilatation, and RVSP 44.8 mmHg. Currently being empirically treated for pneumonia given RLL infiltrate and elevated WBC on admission, but no fevers and no other symptoms Urine culture positive for staph & strep or enterococcus No evidence of ACS initially -> now indeterminate trop I in setting of worsening RF -> not diagnostic of ACS Patient was initially on dopamine gtt for hypotension with SBP 80s -> may be secondary to dehydration in setting of severe valvular disease and LV dysfunction (EF now 15%). Currently hemodynamically stable. Renal function improved to 2.7 today with IV fluids but he became SOB last evening requiring discontinuation of his IV fluids RECS: Spoke with nephrology, Dr. Mccord, who want to give patient more IV fluids and see if his renal function continues to improve. However, the IV fluids is likely to cause dyspnea again given patient's degree of AR and MR, but would try as tolerated. Continue carvedilol 6.25 mg po bid (holding parameters for SBP < 100 mmHg or HR < 50 bpm). No CATHLEEN-I/ARB given renal failure. After discussion with nephrology, patient will need to consent to needing hemodialysis in the future as there is a likelihood that he may end up on hemodialysis following cardiac cath or post-operatively following his cardiac surgery. When patient has agreed to the option of possibly needing hemodialysis , will make arrangements for cardiac cath and surgical evaluation for valve replacement surgery. However, it should be noted that the patient is at high risk given his renal failure, LV dysfunction, and the need for double valve surgery. If patient is not agreeable to the possibility of needing hemodialysis in the future, then patient cannot be transferred for cardiac catheterization and valve replacement surgery evaluation. Spoke with hospitalist who will speak with nephrology and patient again today with pateint's final decision. Will follow. Please call with questions.
--- NOTE | 2017-09-09 11:56 | PN ---
Progress Note (short form) - Note Progress Note: PULMONARY CHART REVIEWED AFTER LENGTHY DISCUSSION WITH PATIENT HE AGREES TO SIGN CONSENT FOR HD IF NEEDED HE UNDERSTANDS THAT THIS MAY BE PERMANENT. VSS/AFEBRILE ANICTERIC DIMINISHED BREATH SOUNDS RIGHT BASE S1S2 SYSTOLIC AND DIASTOLIC MURMURS BS+ NO EDEMA LABS/MEDS/NOTES/IMAGES REVIEWED Acute on Chronic Systolic Heart Failure Severe Mitral Regurgitation Tricuspid/Pulmonic Regurgitation Right Pleural Effusion s/p thoracentesis - Transudate Acute on Chronic Renal Failure HTN h/o DVT - needs valve repair/consent for HD to be signed - monitor urine output, creatinine - O2 to keep SpO2 >90% - complete empiric antibiotics - PO as tolerated - DVT prophylaxis Darlin SMITH MD
[2017-09-09] MEDS ORDERED: SODIUM CHLORIDE 1,000 ML IV SCH (15:00)
--- NOTE | 2017-09-09 15:02 | PN ---
Progress Note (short form) - Note Progress Note: Renal Follow up for FABIAN on CKD Pt seen and examined at the bedside IVF held yesterday evening pt reported increased sob at that time but improved now no cough, PND or orthopnea no chest pain making urine Vital Signs Temperature 98.2 F 09/09/17 14:19 Pulse Rate 68 09/09/17 14:19 Respiratory Rate 20 09/09/17 14:19 Blood Pressure 137/53 09/09/17 14:19 O2 Sat by Pulse Oximetry (%) 97 09/09/17 09:00 Intake & Output 09/06/17 09/07/17 09/08/17 09/09/17 23:59 23:59 23:59 23:59 Intake Total 265 054 5984 200 Output Total 1300 1250 800 Balance -1040 -680 400 200 Weight 43.636 kg 42.184 kg 42.694 kg 43.001 kg NAD on NC O2 RRR, NO M/R dec BS right lung base soft NT/ND No LE edema CBC, BMP 09/09/17 05:25 09/09/17 05:25 Current Medications Aspirin (Asa -) 81 mg PO DAILY [facility] Last Admin: 09/09/17 09:08 Dose: 81 mg Carvedilol (Coreg -) 6.25 mg PO BID [facility] Last Admin: 09/09/17 09:08 Dose: 6.25 mg Guaifenesin (Robitussin -) 10 ml PO Q8H PRN PRN Reason: COUGH Last Admin: 09/09/17 01:16 Dose: 10 ml Heparin Sodium (Porcine) (Heparin -) 5,000 unit SQ BID [facility] Last Admin: 09/09/17 09:08 Dose: 5,000 unit Sodium Chloride (Normal Saline -) 1,000 mls @ 50 mls/hr IV ASDIR [facility] Stop: 09/10/17 14:53 Melatonin (Melatonin) 5 mg PO HS PRN PRN Reason: INSOMNIA Last Admin: 09/09/17 01:16 Dose: 5 mg Pantoprazole Sodium (Protonix -) 40 mg PO DAILY [facility] Last Admin: 09/09/17 09:09 Dose: 40 mg This is a 72 year old Gentleman with PMhx of CKD Stage 3 (baseline Cr 1.5-1.8), Hx of B/L hydronephrosis secondary to BPH now s/p TURP, Hypertension, CHF/ Valvuar disease, Hx of DVT who presents to the ED with complaints of SOB, LE weakness with viral prodrome and found to have FABIAN with Cr of 2.5-> 3.7. #Acute Renal Failure Renal function with signfiant improvement in the last 48 hours in response to IVF noted that pt has mild sob yesterday evening will restart NS at 50cc per hours and monitor for further improvement in renal function Pt is at increased risk of SARAH if he were to get cardiac cath Risk as calculated using calculator developed by Maria Dolores et Al is 14% risk of SARAH (increase in Cr of > 25%) and 0.12% risk of immediate dialysis this was discussed with the patient #CHF/CAD/Valvular disease Cardiology following holding lasix s/p thoracentesis off dopamine gtt No CATHLEEN/ARB given renal injury possible transfer for cardiac cath and valve surgery #Sepsis on Abx clinically improved Flex Lo DO Problem List - Problems (1) Acute renal failure Code(s): N17.9 - ACUTE KIDNEY FAILURE, UNSPECIFIED Qualifiers: Acute renal failure type: unspecified Qualified Code(s): N17.9 - Acute kidney failure, unspecified (2) Respiratory distress Code(s): R06.00 - DYSPNEA, UNSPECIFIED (3) Shortness of breath Code(s): R06.02 - SHORTNESS OF BREATH (4) CHF (congestive heart failure) Code(s): I50.9 - HEART FAILURE, UNSPECIFIED Qualifiers: Congestive heart failure type: unspecified congestive heart failure type Congestive heart failure chronicity: unspecified congestive heart failure chronicity Qualified Code(s): I50.9 - Heart failure, unspecified (5) Sepsis Code(s): A41.9 - SEPSIS, UNSPECIFIED ORGANISM
--- NOTE | 2017-09-09 17:30 | PN ---
Physical Exam: SUBJECTIVE: Patient seen and examined. OBJECTIVE: Vital Signs Period Temp Pulse Resp BP Sys/Martinez Pulse Ox Last 24 Hr 97.5 F-98.6 F 68-75 20-20 128-153/53-70 96-97 GENERAL: The patient is awake, alert, and fully oriented, in moderate respiratory distress, HEAD: Normal with no signs of trauma. EYES: PERRL, extraocular movements intact, sclera anicteric, conjunctiva clear. No ptosis. ENT: Ears normal, nares patent, oropharynx clear without exudates, moist mucous membranes. NECK: Trachea midline, full range of motion, supple. LUNGS: s/p right ultraound guided thoracentesis on 09/06/2017 HEART: NSR ABDOMEN:concave EXTREMITIES: no edema. NEUROLOGICAL: Normal speech, mild conversational dyspnea, gait not observed. PSYCH: Normal mood, normal affect. SKIN: Warm, dry, normal turgor, no rashes or lesions noted Laboratory Results - last 24 hr 09/09/17 09/09/17 05:25 05:25 WBC 11.1 H RBC 4.14 Hgb 11.5 L Hct 36.3 MCV 87.7 MCH 27.7 MCHC 31.6 L RDW 16.4 H Plt Count 339 MPV 9.3 Neutrophils % 88.5 H Lymphocytes % 3.6 L Monocytes % 6.3 Eosinophils % 1.2 Basophils % 0.4 Sodium 136 Potassium 3.5 Chloride 103 Carbon Dioxide 16 L Anion Gap 17 H BUN 95 H Creatinine 2.7 H Random Glucose 98 Calcium 9.1 Phosphorus 5.0 H Magnesium 2.9 H Active Medications Generic Name Dose Route Start Last Admin Trade Name Jaronq PRN Reason Stop Dose Admin Aspirin 81 mg 09/02/17 10:00 09/09/17 09:08 Asa - PO 81 mg DAILY ELIO Administration Carvedilol 6.25 mg 09/04/17 10:26 09/09/17 09:08 Coreg - PO 6.25 mg BID ELIO Administration Guaifenesin 10 ml 09/06/17 17:19 09/09/17 01:16 Robitussin - PO 10 ml Q8H PRN Administration COUGH Heparin Sodium (Porcine) 5,000 unit 09/08/17 23:45 09/09/17 09:08 Heparin - SQ 5,000 unit BID ELIO Administration Sodium Chloride 1,000 mls @ 50 mls/hr 09/09/17 15:00 09/09/17 15:32 Normal Saline - IV 09/10/17 14:53 50 mls/hr ASDIR ELIO Administration Melatonin 5 mg 09/04/17 21:19 09/09/17 01:16 Melatonin PO 5 mg HS PRN Administration INSOMNIA Pantoprazole Sodium 40 mg 09/06/17 10:00 09/09/17 09:09 Protonix - PO 40 mg DAILY ELIO Administration ASSESSMENT/PLAN: Patient is a 72 year old male with a significant past medical history of CHF, HTN, hyperlipidemia, CVA vs. TIA, DVT, BPH, CKD who presented to the ED on 2016 with shortness of breath, dyspnea on exertion and lower extremity weakness. Imaging: Echo 08/2017 shows LV systolic function severely reduced, moderate tricuspid thickening. Moderate to severe tricuspid regurgitation. Severe aortic regurgitation, severe pulmonic regurgitation, severe global hypokinesis, a vegetation on the mitral valve cannot be excluded Previous Echo on 04/09 shows EF 45%, with valvular cardiomyopathy progression, LV mod dilated, cardiomyopathy has progressed since 12/30/2016 Chest Xray 09/08/2017: Interval interstitial opaciteis in the righ lung with atelectatic changes/airspace disease in the right lung base and a small right p leural effusion likely representing pneumonia. Unilateral mild pulmonary venous congestion cannot be excluded. Cardiology: Acute on chronic severe systolic heart failure EF now 15%, previously 55% on 01/07 Echo as above Blood cultures negative to date Lasix on hold Coreg 6.25mg bid with parameters Plan is for patient to have a right and left cardiac cath prior to valve surgery , once renal function is stable Renal NM reviewed, patient started on NS @50cc/hr by Renal, monitor bun/ creatinine Pulmonary: Acute hypoxic respiratory failure,in the setting of worsening CHF, chronic Community acquired pneumonia. resolved On 4 liters nasal cannula, bipap as needed Completed IV antibiotics Patient is s/p right ultrasound guided thoracentesis on 09/06/2017, 1360 of fluid removed from right pleural space Renal: FABIAN on CKD stage 3, creatinine 2.7 Continue to trend, monitor intake and output On IVF as per renal with close monitoring of respiratory status F.E.N. Fluids: NS @ 50cc/hr Electrolytes: monitor and replete Nutrition: low sodium Prophylaxis Heparin Protonix Full code Visit type - Emergency Visit Emergency Visit: Yes ED Registration Date: 08/29/17 Care time: The patient presented to the Emergency Department on the above date and was hospitalized for further evaluation of their emergent condition. - New Patient This patient is new to me today: No - Critical Care Critical Care patient: No - Discharge Referral Referred to [facility] Med [facility] No
[2017-09-10 06:28] LABS: BASOPHIL 0.5 % (0-2.0); MCHC 31.8 g/dl (32.0-35.9); MEAN CELL VOLUME 88.2 fl (80-96); MEAN PLT VOLUME 9.2 fl (7.5-11.1); NEUTROPHILS 87.4 % (42.8-82.8); PLATELET COUNT 346 K/MM3 (134-434); WHITE BLOOD COUNT 8.9 K/mm3 (4.0-10.0)
[2017-09-10 07:10] LABS: ALBUMIN 2.5 g/dl (3.4-5.0); ALK PHOS 116 U/L (45-117); ANION GAP 16 (8-16); BILIRUBIN,TOTAL 0.9 mg/dL (0.2-1.0); CALCIUM 8.8 mg/dL (8.5-10.1); CO2 17 mmol/L (21-32); CREATININE 2.8 mg/dL (0.7-1.3); GLUCOSE,RANDOM 112 mg/dL (74-106); SGOT/AST 21 U/L (15-37); SGPT/ALT 45 U/L (12-78); TOT PROT 5.7 g/dl (6.4-8.2)
[2017-09-10] MEDS: CARVEDILOL 3.125 MG TABLET (FP) PO SCH ×2 (09:51→21:41)
[2017-09-10] MEDS: ASPIRIN 81 MG CHEWABLE TABLETS PO SCH (09:51)
[2017-09-10] MEDS: HEPARIN NA (PORCINE) 5,000 UNITS/ML 1ML VIAL SQ SCH ×2 (09:51→21:40)
[2017-09-10] MEDS: PANTOPRAZOLE 40 MG TABLET (FP) PO SCH (09:51)
[2017-09-10] MEDS: SODIUM BICARBONATE 650 MG TABLET PO SCH ×3 (09:51→21:41)
--- NOTE | 2017-09-10 10:44 | PN ---
Progress Note (short form) - Note Progress Note: Renal Follow up for FABIAN on CKD Pt seen and examined at the bedside awake and alert no acute complaints feels tired no cough, orthopnea, PND getting IVF Vital Signs Temperature 98 F 09/10/17 10:00 Pulse Rate 74 09/10/17 10:00 Respiratory Rate 20 09/10/17 10:00 Blood Pressure 144/66 09/10/17 10:00 O2 Sat by Pulse Oximetry (%) 98 09/10/17 06:00 Intake & Output 09/07/17 09/08/17 09/09/17 09/10/17 23:59 23:59 23:59 23:59 Intake Total 570 1200 710 860 Output Total 1250 800 900 Balance -680 400 710 -40 Weight 42.184 kg 42.694 kg 43.001 kg 43.726 kg NAD on NC O2 RRR, NO M/R dec BS right lung base soft NT/ND No LE edema CBC, BMP 09/10/17 05:00 09/10/17 05:00 Current Medications Aspirin (Asa -) 81 mg PO DAILY [facility] Last Admin: 09/10/17 09:51 Dose: 81 mg Carvedilol (Coreg -) 6.25 mg PO BID [facility] Last Admin: 09/10/17 09:51 Dose: 6.25 mg Guaifenesin (Robitussin -) 10 ml PO Q8H PRN PRN Reason: COUGH Last Admin: 09/09/17 01:16 Dose: 10 ml Heparin Sodium (Porcine) (Heparin -) 5,000 unit SQ BID [facility] Last Admin: 09/10/17 09:51 Dose: 5,000 unit Sodium Chloride (Normal Saline -) 1,000 mls @ 50 mls/hr IV ASDIR [facility] Stop: 09/10/17 14:53 Last Admin: 09/09/17 15:32 Dose: 50 mls/hr Melatonin (Melatonin) 5 mg PO HS PRN PRN Reason: INSOMNIA Last Admin: 09/09/17 01:16 Dose: 5 mg Pantoprazole Sodium (Protonix -) 40 mg PO DAILY [facility] Last Admin: 09/10/17 09:51 Dose: 40 mg Sodium Bicarbonate (Sodium Bicarbonate -) 650 mg PO BID [facility] Last Admin: 09/10/17 09:56 Dose: Not Given This is a 72 year old Gentleman with PMhx of CKD Stage 3 (baseline Cr 1.5-1.8), Hx of B/L hydronephrosis secondary to BPH now s/p TURP, Hypertension, CHF/ Valvuar disease, Hx of DVT who presents to the ED with complaints of SOB, LE weakness with viral prodrome and found to have FABIAN with Cr of 2.5-> 3.7. #Acute Renal Failure Renal function stable but overall improved pt with good urine production continue low rate IVF trend BUN/Cr Pt is at increased risk of SARAH if he were to get cardiac cath Risk as calculated using calculator developed by Maria Dolores et Al is 14% risk of SARAH (increase in Cr of > 25%) and 0.12% risk of immediate dialysis this was discussed with the patient #CHF/CAD/Valvular disease Cardiology following holding lasix s/p thoracentesis off dopamine gtt No CATHLEEN/ARB given renal injury possible transfer for cardiac cath and valve surgery #Sepsis on Abx clinically improved Flex Lo DO Problem List - Problems (1) Acute renal failure Code(s): N17.9 - ACUTE KIDNEY FAILURE, UNSPECIFIED Qualifiers: Acute renal failure type: unspecified Qualified Code(s): N17.9 - Acute kidney failure, unspecified (2) Respiratory distress Code(s): R06.00 - DYSPNEA, UNSPECIFIED (3) Shortness of breath Code(s): R06.02 - SHORTNESS OF BREATH (4) CHF (congestive heart failure) Code(s): I50.9 - HEART FAILURE, UNSPECIFIED Qualifiers: Congestive heart failure type: unspecified congestive heart failure type Congestive heart failure chronicity: unspecified congestive heart failure chronicity Qualified Code(s): I50.9 - Heart failure, unspecified (5) Sepsis Code(s): A41.9 - SEPSIS, UNSPECIFIED ORGANISM
--- NOTE | 2017-09-10 11:44 | PN ---
Progress Note (short form) - Note Progress Note: PULMONARY CHART REVIEWED VSS/AFEBRILE ANICTERIC DIMINISHED BREATH SOUNDS RIGHT BASE S1S2 SYSTOLIC AND DIASTOLIC MURMURS BS+ NO EDEMA LABS/MEDS/NOTES/IMAGES REVIEWED Acute on Chronic Systolic Heart Failure Severe Mitral Regurgitation Tricuspid/Pulmonic Regurgitation Right Pleural Effusion s/p thoracentesis - Transudate Acute on Chronic Renal Failure HTN h/o DVT - needs valve repair/consent for HD to be signed - monitor urine output, creatinine - O2 to keep SpO2 >90% - complete empiric antibiotics - PO as tolerated - DVT prophylaxis Darlin SMITH MD
--- NOTE | 2017-09-10 15:33 | PN ---
Physical Exam: SUBJECTIVE: Patient seen and examined. He states he has intermitted breathing attacks, however currently fine. OBJECTIVE: Vital Signs Period Temp Pulse Resp BP Sys/Martinez Pulse Ox Last 24 Hr 97.5 F-98.2 F 58-77 20-20 119-144/49-73 96-98 PE Neuro: alert, awake, cn 2-12intact Pulm: diminished, clear anteriorly CV: RRR, S1S2, +systolic murmur Abd: s nt nd +bs Ext: Warm, no le edema Laboratory Results - last 24 hr 09/10/17 09/10/17 05:00 05:00 WBC 8.9 RBC 4.20 Hgb 11.8 Hct 37.1 MCV 88.2 MCH 28.0 MCHC 31.8 L RDW 17.0 H Plt Count 346 MPV 9.2 Neutrophils % 87.4 H Lymphocytes % 4.7 L D Monocytes % 6.4 Eosinophils % 1.0 Basophils % 0.5 Sodium 139 Potassium 4.1 Chloride 106 Carbon Dioxide 17 L Anion Gap 16 BUN 94 H Creatinine 2.8 H Creat Clearance w eGFR 22.51 Random Glucose 112 H Calcium 8.8 Total Bilirubin 0.9 D AST 21 ALT 45 Alkaline Phosphatase 116 Total Protein 5.7 L Albumin 2.5 L Active Medications Generic Name Dose Route Start Last Admin Trade Name Freq PRN Reason Stop Dose Admin Aspirin 81 mg 09/02/17 10:00 09/10/17 09:51 Asa - PO 81 mg DAILY ELIO Administration Carvedilol 6.25 mg 09/04/17 10:26 09/10/17 09:51 Coreg - PO 6.25 mg BID ELIO Administration Guaifenesin 10 ml 09/06/17 17:19 09/09/17 01:16 Robitussin - PO 10 ml Q8H PRN Administration COUGH Heparin Sodium (Porcine) 5,000 unit 09/08/17 23:45 09/10/17 09:51 Heparin - SQ 5,000 unit BID ELIO Administration Melatonin 5 mg 09/04/17 21:19 09/09/17 01:16 Melatonin PO 5 mg HS PRN Administration INSOMNIA Pantoprazole Sodium 40 mg 09/06/17 10:00 09/10/17 09:51 Protonix - PO 40 mg DAILY ELIO Administration Sodium Bicarbonate 650 mg 09/10/17 09:30 09/10/17 09:56 Sodium Bicarbonate - PO Not Given BID [facility] Imaging: - ECHO 08/2017: LV systolic function severely reduced, moderate tricuspid thickening. Moderate to severe tricuspid regurgitation. severe global hypokinesis, a vegetation on the mitral valve cannot be excluded - ECHO 03/2017: EF 45%, with valvular cardiomyopathy progression, LV mod dilated , cardiomyopathy has progressed since 12/30/2016 Assessment: 72 year old male with a significant past medical history of CHF, HTN , hyperlipidemia, CVA vs. TIA, DVT, BPH, CKD who presented to the ED on 2016 with shortness of breath, dyspnea on exertion and lower extremity weakness. Plan: 1. Acute on chronic severe systolic heart failure - Coreg 6.25mg BID - Low rate fluids at this time - Hold CATHLEEN/ARB - Plan is for possible valve replacement and right and left cardiac cath pending renal function improvement, however may not be transferred if pt is not agreeable to possibility of HD 2. FABIAN on CKD - Cr stable - Gentle IVF - Monitor BMP through weekend - Continue sodium bicarb tabs - Final decision regarding HD continues to await 3. Acute hypoxic respiratory failure - / C. PNA vs. volume overload from CHF - Stable on NC 4. Right Pleural Effusion - s/p thoracentesis 09/16 - Transudative 5. Community acquired pneumonia - Off abx, afebrile 6. Vegetation on the mitral valve cannot be excluded - MV not visualized and therefore vegetation cannot be excluded, however, patient afebrile and blood cultures negative, so no further workup needed at this time per Cards 7. Tropinenmia - Peak 0.19 - Cardiac workup per cards 8. Prophylaxis - PT - OOB as tolerated - Heparin 5,000u sq bid Visit type - Emergency Visit Emergency Visit: Yes ED Registration Date: 08/29/17 Care time: The patient presented to the Emergency Department on the above date and was hospitalized for further evaluation of their emergent condition. - New Patient This patient is new to me today: Yes Date on this admission: 09/10/17 - Critical Care Critical Care patient: No
[2017-09-11 07:11] LABS: ANION GAP 17 (8-16); CALCIUM 8.6 mg/dL (8.5-10.1); CO2 15 mmol/L (21-32); CREATININE 2.5 mg/dL (0.7-1.3); GLUCOSE,RANDOM 101 mg/dL (74-106)
[2017-09-11] MEDS ORDERED: PT OWN MED DRAWER 7, Y5N ONE (08:28)
[2017-09-11] MEDS: ASPIRIN 81 MG CHEWABLE TABLETS PO SCH (09:22)
[2017-09-11] MEDS: HEPARIN NA (PORCINE) 5,000 UNITS/ML 1ML VIAL SQ SCH ×2 (09:22→21:25)
[2017-09-11] MEDS: SODIUM BICARBONATE 650 MG TABLET PO SCH ×2 (09:22→21:26)
[2017-09-11] MEDS: PANTOPRAZOLE 40 MG TABLET (FP) PO SCH (09:22)
[2017-09-11] MEDS: CARVEDILOL 3.125 MG TABLET (FP) PO SCH ×2 (09:22→21:25)
--- NOTE | 2017-09-11 11:32 | PN ---
Physical Exam: SUBJECTIVE: Patient seen and examined. He is shaving in bed, says he feels better today and has not had any more shortness of breath Events: - Diarrhea yesterday OBJECTIVE: Vital Signs Period Temp Pulse Resp BP Sys/Martinez Pulse Ox Last 24 Hr 96.2 F-98.2 F 63-77 18-20 121-144/53-73 96-98 PE Neuro: alert, awake, cn 2-12intact Pulm: diminished, clear anteriorly CV: s1 s2 rrr, +systolic murmur Abd: s nt nd +bs Ext: Warm, no le edema Laboratory Results - last 24 hr 09/11/17 05:00 Sodium 138 Potassium 3.6 Chloride 106 Carbon Dioxide 15 L Anion Gap 17 H BUN 90 H Creatinine 2.5 H Random Glucose 101 Calcium 8.6 Active Medications Generic Name Dose Route Start Last Admin Trade Name Freq PRN Reason Stop Dose Admin Aspirin 81 mg 09/02/17 10:00 09/11/17 09:22 Asa - PO 81 mg DAILY ELIO Administration Carvedilol 6.25 mg 09/04/17 10:26 09/11/17 09:22 Coreg - PO 6.25 mg BID ELIO Administration Guaifenesin 10 ml 09/06/17 17:19 09/09/17 01:16 Robitussin - PO 10 ml Q8H PRN Administration COUGH Heparin Sodium (Porcine) 5,000 unit 09/08/17 23:45 09/11/17 09:22 Heparin - SQ 5,000 unit BID ELIO Administration Melatonin 5 mg 09/04/17 21:19 09/09/17 01:16 Melatonin PO 5 mg HS PRN Administration INSOMNIA Pantoprazole Sodium 40 mg 09/06/17 10:00 09/11/17 09:22 Protonix - PO 40 mg DAILY ELIO Administration Sodium Bicarbonate 650 mg 09/10/17 09:30 09/11/17 09:22 Sodium Bicarbonate - PO 650 mg BID ELIO Administration Imaging: - ECHO 08/2017: LV systolic function severely reduced, moderate tricuspid thickening. Moderate to severe tricuspid regurgitation. severe global hypokinesis, a vegetation on the mitral valve cannot be excluded - ECHO 03/2017: EF 45%, with valvular cardiomyopathy progression, LV mod dilated , cardiomyopathy has progressed since 12/30/2016 Assessment: 72 year old male with a significant past medical history of CHF, HTN , hyperlipidemia, CVA vs. TIA, DVT, BPH, CKD who presented to the ED on 2016 with shortness of breath, dyspnea on exertion and lower extremity weakness. Plan: 1. Acute on chronic severe systolic HF - Continue gentle fluids through tomorrow, cr improving - Patient did agree to possibility of HD in future if needed after cardiac procedures, will finalize plan with cardiology tomorrow, for transfer vs dc home - Coreg 6.25mg BID - Hold CATHLEEN/ARB 2. FABIAN on CKD - Cr improved - Maintain current fluids - Continue sodium bicarb BID - Patient w/o needs of start SCHEDULE MAKER now or placement of permacath, initiation of HD depending on response to contrast dye during cardiac cath, will need to be followed as outpt 3. Acute hypoxic respiratory failure - / C. PNA vs. volume overload from CHF - Stable on NC 4. Right Pleural Effusion - s/p thoracentesis 09/16 - Transudative 5. Community acquired pneumonia - Off abx, afebrile 6. Vegetation on the mitral valve cannot be excluded - MV not visualized and therefore vegetation cannot be excluded, however, pt afebrile and BC -, so no further workup needed at this time per Cards 7. Tropinenmia - Peak 0.19 - Cardiac workup per cards 8. Prophylaxis - PT - OOB as tolerated - Heparin 5,000u sq bid 9. Diarrhea - c diff, stool studies sent Visit type - Emergency Visit Emergency Visit: Yes ED Registration Date: 08/29/17 Care time: The patient presented to the Emergency Department on the above date and was hospitalized for further evaluation of their emergent condition. - New Patient This patient is new to me today: No - Critical Care Critical Care patient: No
--- NOTE | 2017-09-11 12:43 | CONSULT ---
Consult - text type - Consultation Consultation Note: CARDIOLOGY DYSPNEA AT REST. NO ANGINA. MEDICATIONS REVIEWED APPEARS IN NO DISTRESS AWAKE ALERT HEART RATE 78 REGULAR AFEBRILE RESPIRATORY RATE 20/MINUTE BLOOD PRESSURE 130 SYSTOLIC. SYSTOLIC AND DIASTOLIC MURMURS UNCHANGED. DECREASED BREATH SOUNDS RIGHT POSTERIOR BASE. NO EDEMA TELEMETRY SINUS RHYTHM BUN 90 CREAT 2.5 IMPRESSION [facility] CHF ACUTE ON CHRONIC DUE TO VALVULAR HEART DISEASE CARDIOMYOPATHY HEART FAILURE WITH MARKED REDUCED EJECTION FRACTION SEVERE MITRAL/AORTIC REGURGITATION. CAN NOT RULE OUT UNDERLYING ATHEROSCLEROTIC HEART DISEASE RENAL FAILURE CHRONIC. [facility] WOULD REQUIRE REPAIR/REPLACEMENT OF VALVES. REC TRANSFER TO [facility] 09/12/17 OR 09/13/17 FOR CORONARY ARTERIOGRAPHY/ CARDIOTHORACIC SURGICAL CONSULT NPO AFTER MIDNIGHT TONIGHT
--- NOTE | 2017-09-11 13:33 | PN ---
Progress Note (short form) - Note Progress Note: PULMONARY CARDIAC CONSULT REVIEWED VSS/AFEBRILE ANICTERIC DIMINISHED BREATH SOUNDS RIGHT BASE S1S2 SYSTOLIC AND DIASTOLIC MURMURS BS+ NO EDEMA LABS/MEDS/NOTES/IMAGES REVIEWED Acute on Chronic Systolic Heart Failure Severe Mitral Regurgitation Tricuspid/Pulmonic Regurgitation Right Pleural Effusion s/p thoracentesis - Transudate Acute on Chronic Renal Failure HTN h/o DVT - needs valve repair/consent for HD to be signed - monitor urine output, creatinine - O2 to keep SpO2 >90% - complete empiric antibiotics - PO as tolerated - DVT prophylaxis Darlin SMITH MD
[2017-09-11] MEDS ORDERED: ALBUTEROL SO4 0.083% IH SOL 2.5 MG/3 ML VIAL.NEB. NEB PRN (17:30)
[2017-09-11] MEDS: MELATONIN 5 MG TABLETS PO PRN (21:29)
--- NOTE | 2017-09-12 07:08 | PN ---
Progress Note, Physician History of Present Illness: No new complaints. Pending transfer to [facility] today. - Current Medication List Current Medications: Active Medications Albuterol Sulfate (Ventolin 0.083% Nebulizer Soln -) 1 amp NEB Q4H PRN PRN Reason: SHORT OF BREATH/WHEEZING Last Admin: 09/11/17 18:22 Dose: 1 amp Aspirin (Asa -) 81 mg PO DAILY [facility] Last Admin: 09/11/17 09:22 Dose: 81 mg Carvedilol (Coreg -) 6.25 mg PO BID [facility] Last Admin: 09/11/17 21:25 Dose: 6.25 mg Guaifenesin (Robitussin -) 10 ml PO Q8H PRN PRN Reason: COUGH Last Admin: 09/09/17 01:16 Dose: 10 ml Heparin Sodium (Porcine) (Heparin -) 5,000 unit SQ BID [facility] Last Admin: 09/11/17 21:25 Dose: 5,000 unit Melatonin (Melatonin) 5 mg PO HS PRN PRN Reason: INSOMNIA Last Admin: 09/11/17 21:29 Dose: 5 mg Pantoprazole Sodium (Protonix -) 40 mg PO DAILY [facility] Last Admin: 09/11/17 09:22 Dose: 40 mg Sodium Bicarbonate (Sodium Bicarbonate -) 650 mg PO BID [facility] Last Admin: 09/11/17 21:26 Dose: 650 mg - Objective Vital Signs: Vital Signs Temperature 97.4 F L 09/12/17 06:00 Pulse Rate 68 09/12/17 06:00 Respiratory Rate 18 09/12/17 06:00 Blood Pressure 131/50 09/12/17 06:00 O2 Sat by Pulse Oximetry (%) 98 09/12/17 06:00 Constitutional: Yes: No Distress Eyes: Yes: Conjunctiva Clear, EOM Intact HENT: Yes: Atraumatic, Normocephalic Cardiovascular: Yes: Regular Rate and Rhythm, Murmur Respiratory: Yes: Diminished (at bases bilaterally) Gastrointestinal: Yes: Normal Bowel Sounds, Soft. No: Tenderness Edema: No Neurological: Yes: Alert, Oriented, Cran Nerves II-XII Intact Psychiatric: Yes: WNL Labs: INR, PTT INR 1.31 (0.82-1.09) H 08/29/17 16:24 Assessment/Plan 72 yo male with HTN, severe AR, severe MR, chronic systolic heart failure, who was admitted with SOB/FISCHER x 4 days. Patient was on admission with some evidence of fluid overload -> pleural effusions and orthopnea (though no wt gain or LE edema). However, the BNP (155,918) seemed elevated out of proportion to the degree of CHF -> may be in part due to renal failure. 08/31/17 Echo: Moderately dilated LV with severely reduced systolic function, severe AR, severe MR, severe OR, moderate biatrial enlargement, moderate aortic root dilatation, and RVSP 44.8 mmHg. [facility] CHF ACUTE ON CHRONIC DUE TO VALVULAR HEART DISEASE CARDIOMYOPATHY HEART FAILURE WITH MARKED REDUCED EJECTION FRACTION SEVERE MITRAL/AORTIC REGURGITATION. CAN NOT RULE OUT UNDERLYING ATHEROSCLEROTIC HEART DISEASE RENAL FAILURE CHRONIC. Underwent thoracentesis on 09/06/17 -> transudative [facility]PR[facility] WOULD REQUIRE REPAIR/REPLACEMENT OF VALVES. Patient understands potential risk of worsening renal failure with cardiac cath and/or CT surgery, and he also understand that significant long-term clinical improvement is unlikely without surgical intervention. RECS: Patient is currently pending transfer to [facility] for cardiac catheterization and CT surgery evaluation for valve replacement surgery. Patient remains NPO for now. Continue carvedilol 6.25 mg po bid (holding parameters for SBP < 100 mmHg or HR < 50 bpm). No CATHLEEN-I/ARB given renal failure.
[2017-09-12 07:20] LABS: INR 1.28 (0.82-1.09); PROTHROMBIN TIME (PATIENT) 14.5 SEC (9.98-11.88)
[2017-09-12 07:22] LABS: ACTIVATED PTT 28.9 SECONDS (26.9-34.4)
[2017-09-12 07:25] LABS: ANION GAP 15 (8-16); CALCIUM 8.6 mg/dL (8.5-10.1); CO2 18 mmol/L (21-32); CREATININE 2.6 mg/dL (0.7-1.3); GLUCOSE,RANDOM 103 mg/dL (74-106)
[2017-09-12 07:41] LABS: MCH 27.6 pg (25.7-33.7); MCHC 31.6 g/dl (32.0-35.9); MEAN CELL VOLUME 87.4 fl (80-96); MEAN PLT VOLUME 9.3 fl (7.5-11.1); PLATELET COUNT 326 K/MM3 (134-434); WHITE BLOOD COUNT 10.3 K/mm3 (4.0-10.0)
[2017-09-12 07:57] VITALS: BP 141/59; TEMP 97.5
[2017-09-12] MEDS: ASPIRIN 81 MG CHEWABLE TABLETS PO SCH (09:18)
[2017-09-12] MEDS: PANTOPRAZOLE 40 MG TABLET (FP) PO SCH (09:18)
[2017-09-12] MEDS: HEPARIN NA (PORCINE) 5,000 UNITS/ML 1ML VIAL SQ SCH (09:19)
[2017-09-12] MEDS: CARVEDILOL 3.125 MG TABLET (FP) PO SCH (09:19)
[2017-09-12] MEDS: SODIUM BICARBONATE 650 MG TABLET PO SCH (09:19)
[2017-09-12] MEDS ORDERED: ACETYLCYSTEINE 20% 200MG/ML 30 ML VIAL *FOR ORAL / INH USE ONLY PO SCH (10:15)
--- NOTE | 2017-09-12 10:32 | PN ---
Progress Note (short form) - Note Progress Note: Renal Follow up for FABIAN on CKD Pt seen and examined at the bedside awake and alert no acute complaints no cough, chest pain Vital Signs Temperature 97.5 F L 09/12/17 07:56 Pulse Rate 72 09/12/17 07:56 Respiratory Rate 18 09/12/17 08:04 Blood Pressure 141/59 09/12/17 07:56 O2 Sat by Pulse Oximetry (%) 98 09/12/17 06:00 Intake & Output 09/09/17 09/10/17 09/11/17 09/12/17 23:59 23:59 23:59 23:59 Intake Total 710 1100 500 160 Output Total 1700 1250 Balance 710 -600 -750 160 Weight 43.001 kg 43.726 kg NAD on NC O2 RRR, NO M/R dec BS right lung base soft NT/ND No LE edema CBC, BMP 09/12/17 05:10 09/12/17 05:10 Current Medications Acetylcysteine (Mucomyst 20 Oral / Inh Use Only*) 1,200 mg PO Q12H [facility] Stop: 09/13/17 22:16 Albuterol Sulfate (Ventolin 0.083% Nebulizer Soln -) 1 amp NEB Q4H PRN PRN Reason: SHORT OF BREATH/WHEEZING Last Admin: 09/11/17 18:22 Dose: 1 amp Aspirin (Asa -) 81 mg PO DAILY [facility] Last Admin: 09/12/17 09:18 Dose: Not Given Carvedilol (Coreg -) 6.25 mg PO BID [facility] Last Admin: 09/12/17 09:19 Dose: 6.25 mg Guaifenesin (Robitussin -) 10 ml PO Q8H PRN PRN Reason: COUGH Last Admin: 09/09/17 01:16 Dose: 10 ml Heparin Sodium (Porcine) (Heparin -) 5,000 unit SQ BID [facility] Last Admin: 09/12/17 09:19 Dose: Not Given Melatonin (Melatonin) 5 mg PO HS PRN PRN Reason: INSOMNIA Last Admin: 09/11/17 21:29 Dose: 5 mg Pantoprazole Sodium (Protonix -) 40 mg PO DAILY [facility] Last Admin: 09/12/17 09:18 Dose: Not Given Sodium Bicarbonate (Sodium Bicarbonate -) 650 mg PO BID [facility] Last Admin: 09/12/17 09:19 Dose: Not Given This is a 72 year old Gentleman with PMhx of CKD Stage 3 (baseline Cr 1.5-1.8), Hx of B/L hydronephrosis secondary to BPH now s/p TURP, Hypertension, CHF/ Valvuar disease, Hx of DVT who presents to the ED with complaints of SOB, LE weakness with viral prodrome and found to have FABIAN with Cr of 2.5-> 3.7. #Acute Renal Failure Renal function improved but not at baseline at this time off IVF b/c of concern for HF Pt is planned for cardiac cath today at [facility] Risk as calculated using calculator developed by Maria Dolores et Al is 14% risk of SARAH (increase in Cr of > 25%) and 0.12% risk of immediate dialysis pt is aware and understands risks and is consenting to procedure start mucomyst 1200mg Q12h now continue sodium bicabronate 650mg BID #CHF/CAD/Valvular disease Cardiology following holding lasix s/p thoracentesis off dopamine gtt No CATHLEEN/ARB given renal injury possible transfer for cardiac cath and valve surgery #Sepsis on Abx clinically improved pt to follow up in the office s/p hospital discharge for CKD management Flex Lo DO Problem List - Problems (1) Acute renal failure Code(s): N17.9 - ACUTE KIDNEY FAILURE, UNSPECIFIED Qualifiers: Acute renal failure type: unspecified Qualified Code(s): N17.9 - Acute kidney failure, unspecified (2) Respiratory distress Code(s): R06.00 - DYSPNEA, UNSPECIFIED (3) Shortness of breath Code(s): R06.02 - SHORTNESS OF BREATH (4) CHF (congestive heart failure) Code(s): I50.9 - HEART FAILURE, UNSPECIFIED Qualifiers: Congestive heart failure type: unspecified congestive heart failure type Congestive heart failure chronicity: unspecified congestive heart failure chronicity Qualified Code(s): I50.9 - Heart failure, unspecified (5) Sepsis Code(s): A41.9 - SEPSIS, UNSPECIFIED ORGANISM
[2017-09-12 12:16] VITALS: PULSE 69
--- NOTE | 2017-09-12 18:59 | DS ---
Physical Exam: SUBJECTIVE: Patient seen and examined. Aware of transfer for heart procedure, denies sob. OBJECTIVE: Vital Signs Period Temp Pulse Resp BP Sys/Martinez Pulse Ox Last 24 Hr 97.4 F-97.7 F 68-75 18-18 131-143/50-63 97-98 PE Neuro: alert, awake, cn 2-12intact Pulm: diminished, clear anteriorly CV: s1 s2 rrr, +systolic murmur Abd: s nt nd +bs Ext: Warm, no le edema Laboratory Results - last 24 hr 09/12/17 09/12/17 09/12/17 05:10 05:10 05:10 WBC 10.3 H RBC 3.92 L Hgb 10.8 L Hct 34.2 L MCV 87.4 MCH 27.6 MCHC 31.6 L RDW 17.0 H Plt Count 326 MPV 9.3 PT with INR 14.50 H INR 1.28 H PTT (Actin FS) 28.9 Sodium 138 Potassium 3.7 Chloride 105 Carbon Dioxide 18 L Anion Gap 15 BUN 83 H Creatinine 2.6 H Random Glucose 103 Calcium 8.6 HOSPITAL COURSE: Date of Admission:08/29/17 Date of Discharge: 09/12/17 Minutes to complete discharge: 38 Discharge Summary Reason For Visit: ACUTE RENAL FAILURE AND PNEUMONIA Hospital Course: Transfer/DC summary: 72 yo male with HTN, severe AR, severe MR, chronic systolic heart failure, CKD Stage 3 (baseline Cr 1.5-1.8), Hx of B/L hydronephrosis secondary to BPH now s/ p TURP, who was admitted with SOB/FISCHER x 4 days. Patient was on admission with some evidence of fluid overload -> pleural effusions and orthopnea (though no wt gain or LE edema). However, the BNP (155,918) seemed elevated out of proportion to the degree of CHF -> may be in part due to renal failure. Imaging: - 08/31/17 Echo: Moderately dilated LV with severely reduced systolic function, severe AR, severe MR, severe DE, moderate biatrial enlargement, moderate aortic root dilatation, and RVSP 44.8 mmHg. Plan: 1. Acute on chronic CHF due to valvular heart disease/cardiomyopthy heart failure with reduced EF - Transfer to [facility] for cardiac cath and/or CT surgery - Coreg 6.25mg BID - Hold CATHLEEN/ARB - Hold lasix s/p thoracentesis 2. Acute renal failure - Risk as calculated using calculator developed by Maria Dolores et Al is 14% risk of SARAH (increase in Cr of > 25%) and 0.12% risk of immediate dialysis - Cr improved w/fluids, however has no returned to baseline, off IVF w/ worsening HF - Pt understands risk of cardiac cath and aware may require HD in future - Started mucomyst 1200mg Q12h now - Continue sodium bicabronate 650mg BID 3. Acute hypoxic respiratory failure - / C. PNA vs. volume overload from CHF - Stable on NC 4. Right Pleural Effusion - s/p thoracentesis 09/16 - Transudative 5. Community acquired pneumonia - Off abx, afebrile 6. Vegetation on the mitral valve cannot be excluded - MV not visualized and therefore vegetation cannot be excluded, however, pt afebrile and BC -, so no further workup needed at this time per Cards Dispo: - Transfer to [facility] for Cardiac intervention Condition: Stable - Instructions Diet, Activity, Other Instructions: Transfer to [facility] for Cardiac Cath and MV replacement Referrals: Shan Schwartz MD [Staff Physician] - Disposition: TRANSFER ACUTE CARE/OTHER HOSP - Home Medications Comprehensive Discharge Medication List: Ambulatory Orders Amlodipine Besylate [Norvasc -] 10 mg PO DAILY #0 tablet 11/16/13 Carvedilol [Coreg -] 6.25 mg PO BID #60 tablet 04/20/17 Furosemide [Lasix -] 40 mg PO DAILY #30 tablet 04/20/17 This patient is new to me today: No Emergency Visit: Yes ED Registration Date: 08/29/17 Care time: The patient presented to the Emergency Department on the above date and was hospitalized for further evaluation of their emergent condition. Critical Care patient: No - Discharge Referral Referred to [facility] Med P.C.: No
== END 2017-09-12 12:52 | disposition short-term general hospital (02) | DRG 871 ==
LOC: FER 16:04 → FM/S 20:25 → JICU 08-30 17:20 → J4W 09-01 15:38 → JERBED 09-01 21:06 → J4W 09-01 21:07
PROVIDERS: ADMIT Internal Medicine; ATTEND Nurse Practitioner Acute Care
PROC: 5A09457 Assistance with Respiratory Ventilation, 24-96 Consecutive Hours, Continuous Positive Airway Pressure (ICD-10-PCS; 2017-08-30)
PROC: 0W993ZX Drainage of Right Pleural Cavity, Percutaneous Approach, Diagnostic (ICD-10-PCS; principal; 2017-09-06)
DX: A41.9 Sepsis, unspecified organism (principal); J18.9 Pneumonia, unspecified organism; E43 Unspecified severe protein-calorie malnutrition; J96.01 Acute respiratory failure with hypoxia; R57.0 Cardiogenic shock; I50.23 Acute on chronic systolic (congestive) heart failure; N17.9 Acute kidney failure, unspecified; E87.3 Alkalosis; E87.2 Acidosis; Z68.1 Body mass index [BMI] 19.9 or less, adult; N13.39 Other hydronephrosis; I13.0 Hypertensive heart and chronic kidney disease with heart failure and stage 1 through stage 4 chronic kidney disease, or unspecified chronic kidney disease; J90 Pleural effusion, not elsewhere classified; N40.0 Benign prostatic hyperplasia without lower urinary tract symptoms; R00.0 Tachycardia, unspecified; E80.6 Other disorders of bilirubin metabolism; E78.5 Hyperlipidemia, unspecified; E87.6 Hypokalemia; I08.0 Rheumatic disorders of both mitral and aortic valves; M54.5 Low back pain; E88.09 Other disorders of plasma-protein metabolism, not elsewhere classified; E83.39 Other disorders of phosphorus metabolism; E86.0 Dehydration; N18.3 Chronic kidney disease, stage 3 (moderate); Z86.73 Personal history of transient ischemic attack (TIA), and cerebral infarction without residual deficits; Z86.718 Personal history of other venous thrombosis and embolism
CPT/HCPCS: 36415; 36600; 71010-TC; 76705-TC; 76775-TC; 76942; 78708-TC; 80048; 80053; 81003; 81015; 82042; 82150; 82550; 82553; 82570; 82803; 82945; 83605; 83615; 83735; 83880; 84100; 84156; 84157; 84300; 84443; 84478; 84484; 84540; 85025; 85027; 85610; 85730; 86850; 86900; 86901; 87040; 87070; 87075; 87086; 87102; 87116; 87186; 87205; 87206; 87210; 87899; 88108; 88305-TC; 89051; 93005; 93010; 93306-TC; 94640; 94660; 97116-GP; 97162-GP; 99283-25; A9562; J1644

== ENCOUNTER 2017-10-11 00:26 | Inpatient (IN) | payer BC, OTHER ==
--- NOTE | 2017-10-11 00:29 | PDOC ---
History of Present Illness - General Chief Complaint: Shortness of Breath Stated Complaint: SOB Time Seen by Provider: 10/11/17 00:28 - History of Present Illness Initial Comments: This 72-year-old man with a history of hypertension/valvular heart disease/ cardiomyopathy/renal insufficiency/CHF/DVT (approximately 5 years ago), discharged from [facility] within the last week presents with a one-day history of shortness of breath. Patient had been transferred to [facility] from this institution on 09/12 for evaluation regarding valvular repair[he had been admitted here on 08/29 with dyspnea]. Patient felt mildly short of breath earlier today with dyspnea increasing tonight. He has no history of fever/chills, increase in cough (patient has mild nonproductive cough for the last few days), chest pain/pressure. Patient denies swelling or pain in his lower extremities. He has had no nausea/vomiting /diarrhea. He has been taking his medications as prescribed and denies any change in diet recently. Patient's cardiologists are Drs. Resendiz/Nilson 10/11/17 02:21 Past History - Past Medical History Allergies/Adverse Reactions: Allergies Allergy/AdvReac Type Severity Reaction Status Date / Time No Known Allergies Allergy Verified 10/11/17 01:20 Home Medications: Ambulatory Orders Atorvastatin Ca [Lipitor] 20 mg PO HS 10/11/17 Hydralazine HCl 10 mg PO DAILY 10/11/17 Isosorbide Dinitrate [Isordil -] 20 mg PO TID 10/11/17 Valsartan 40 mg PO DAILY 10/11/17 Albuterol 2.5/Ipratropium 0.5 [Duoneb -] 1 amp NEB Q6H PRN amp 10/13/17 Anemia: No Asthma: No Cancer: No Cardiac Disorders: No CVA: No COPD: No CHF: Yes DVT: Yes Dementia: No Diabetes: No GI Disorders: Yes (BPH) Disorders: No HTN: Yes Hypercholesterolemia: No Liver Disease: No Seizures: No Thyroid Disease: No - Surgical History Abdominal Surgery: No Appendectomy: No Cardiac Surgery: No Cholecystectomy: No Lung Surgery: No Neurologic Surgery: No Orthopedic Surgery: No - Suicide/Smoking/Psychosocial Hx Smoking History: Never smoked Have you smoked in the past 12 months: No Number of Cigarettes Smoked Daily: 0 Hx Alcohol Use: No Drug/Substance Use Hx: No Substance Use Type: None Hx Substance Use Treatment: No Review of Systems - Review of Systems Able to Perform ROS?: Yes Comments:: 12 point review of systems is negative except for what is noted in the history of present illness *Physical Exam - Physical Exam Comments: GENERAL: Adult male, alert and oriented 3, speaking in full sentences; breathing quietly Pulse oximetry on room air 93% HEAD: Normal with no signs of trauma. EYES: PERRLA, EOMI, sclera anicteric, conjunctiva clear. ENT: Ears normal, nares patent, oropharynx clear without exudates. Dry mucous membranes. NECK: Normal range of motion, supple without lymphadenopathy, JVD, or masses. LUNGS: Decreased breath sounds at right base, otherwise clear HEART:Regular rate and rhythm, normal S1 and S2 3/6 systolic murmur over precordium ABDOMEN:.normal bowel sounds No guarding,tenderness or rebound.No masses No distention. EXTREMITIES: Normal range of motion, no edema. No clubbing or cyanosis. No erythema, or tenderness. NEUROLOGICAL: Cranial nerves II through XII grossly intact. Normal speech. No focal neurological deficits. MUSCULOSKELETAL: Back non-tender to palpation, no CVA tenderness SKIN: Warm, Dry, normal turgor, no rashes or lesions noted are 3 hours while. ED Treatment Course - LABORATORY CBC & Chemistry Diagram: 10/13/17 07:30 10/13/17 07:30 Progress Note - Progress Note Progress Note: Portable chest x-ray shows large right sided pleural effusion with increased markings, essentially unchanged from chest x-ray dated 09/11/17 12-lead electrocardiogram reveals normal sinus rhythm at 95 bpm episodes essentially unchanged from previous 12-lead electrocardiogram dated 08/31/17 Laboratory evaluation shows essentially normal CBC with normal white blood cell count of 8200. Hemoglobin 10.8/hematocrit 34.8% Troponin is mildly elevated 0.08. D-dimer is markedly elevated at 927 Patient has a history of moderate renal insufficiency; BUN is 42 with a creatinine of 2.2 Since patient has creatinine clearance less than 30, CT angiogram to rule out pulmonary embolism is contraindicated. Case discussed with Dr Mckeon of [facility] service Patient will be admitted and, since he is at high risk for pulmonary embolism, full weight-based heparin infusion will be started empirically *DC/Admit/Observation/Transfer Diagnosis at time of Disposition: Shortness of breath, At high risk for pulmonary embolism - Discharge Dispostion Disposition: TRANSFER ACUTE CARE/OTHER HOSP Condition at time of disposition: Stable Admit: Yes - Referrals - Patient Instructions - Post Discharge Activity
[2017-10-11 01:15] LABS: BASO % 0.7 % (0-2.0); EOS % 1.2 % (0-4.5); MCHC 31.1 g/dl (32.0-35.9); MEAN PLT VOLUME 8.6 fl (7.5-11.1); NEUT % 83.5 % (42.8-82.8); PLATELET COUNT 392 K/MM3 (134-434); RDW 20.3 % (11.9-15.9); WHITE BLOOD COUNT 8.2 K/mm3 (4.0-10.0)
[2017-10-11 01:16] LABS: INR 1.27 (0.82-1.09); PROTHROMBIN TIME (PATIENT) 14.3 SEC (9.98-11.88)
[2017-10-11 01:40] LABS: ALBUMIN 2.4 g/dl (3.4-5.0); ALK PHOS 116 U/L (45-117); BILIRUBIN,TOTAL 0.5 mg/dL (0.2-1.0); CALCIUM 8.8 mg/dL (8.5-10.1); CO2 23 mmol/L (21-32); CREATININE 2.2 mg/dL (0.7-1.3); GLUCOSE,RANDOM 115 mg/dL (74-106); SGPT/ALT 27 U/L (12-78); TOT PROT 6.4 g/dl (6.4-8.2)
[2017-10-11 01:41] LABS: TROPONIN I 0.08 ng/ml (0.00-0.05)
[2017-10-11 02:00] LABS: ANION GAP 14 (8-16); SGOT/AST 36 U/L (15-37)
[2017-10-11] MEDS ORDERED: HEPARIN NA (PORCINE) 5,000 UNITS/ML 1ML VIAL IVPUSH PRN ×2 (02:42)
[2017-10-11] MEDS: HEPARIN INFUSION - 25,000 UNITS/500 ML INFUS.BAG IVPB SCH (02:50)
[2017-10-11 03:52] LABS: ARTERIAL BLOOD GAS pH 7.49 (7.35-7.45)
[2017-10-11 03:53] LABS: ARTERIAL BLD GAS O2 SATURATION 97.7 % (90-98.9); ARTERIAL BLOOD GAS BASE EXCESS -1.5 meq/l (-2-2); ARTERIAL BLOOD GAS HCO3 20.2 meq/L (22-26)
[2017-10-11 04:05] VITALS: BMI 17.0
[2017-10-11] MEDS ORDERED: ISOSORBIDE DINITRATE 20 MG TABLET (FP) PO SCH (06:00)
--- NOTE | 2017-10-11 07:42 | HP ---
CHIEF COMPLAINT: dyspnea upon exertion PCP: Dr Choe Cardiology: Dr Mcgowan HISTORY OF PRESENT ILLNESS: Patient is a 72 y/o male with a past medical history of chronic valvular congestive heart failure, CKD stage 3, hypertension , DVT, BPH, and CVA/TIA. Patient was recently admitted to this hospital on 08/29/[address] [facility] for emergent cardiac cath, on 09/12/17. Patient reports a one week admission at [facility]. He reports declining cardiac cath at [facility] because he feared the risk of dying from complications. Patient reports feeling well after discharge, however, yesterday he reports increased dypsnea upon exertion and shortness of breath. ER course was notable for: (1) chest xray progressive bibasilar changes, cardiomyopathy (2) BNP >175k (3) troponin 0.08 Recent Travel: none PAST MEDICAL HISTORY: see hpi PAST SURGICAL HISTORY: s/p TURP Social History: resides at home Smoking:none Alcohol:none Drugs: none Family History: non-contributory to this admission. Allergies No Known Allergies Allergy (Verified 10/11/17 01:20) HOME MEDICATIONS: Home Medications Medication Instructions Recorded Atorvastatin Ca [Lipitor] 20 mg PO HS 10/11/17 Hydralazine HCl 10 mg PO DAILY 10/11/17 Isosorbide Dinitrate [Isordil -] 20 mg PO TID 10/11/17 Valsartan 40 mg PO DAILY 10/11/17 REVIEW OF SYSTEMS CONSTITUTIONAL: Absent: fever, chills, diaphoresis, generalized weakness, malaise, loss of appetite, weight change HEENT: Absent: rhinorrhea, nasal congestion, throat pain, throat swelling, difficulty swallowing, mouth swelling, ear pain, eye pain, visual changes CARDIOVASCULAR: Absent: chest pain, syncope, palpitations, irregular heart rate, lightheadedness , peripheral edema RESPIRATORY: Present: dyspnea with exertion, orthopnea, Absent: cough, shortness of breath, wheezing, stridor, hemoptysis GASTROINTESTINAL: Absent: abdominal pain, abdominal distension, nausea, vomiting, diarrhea, constipation, melena, hematochezia GENITOURINARY: Absent: dysuria, frequency, urgency, hesitancy, hematuria, flank pain, genital pain MUSCULOSKELETAL: Absent: myalgia, arthralgia, joint swelling, back pain, neck pain SKIN: Absent: rash, itching, pallor HEMATOLOGIC/IMMUNOLOGIC: Absent: easy bleeding, easy bruising, lymphadenopathy, frequent infections ENDOCRINE: Absent: unexplained weight gain, unexplained weight loss, heat intolerance, cold intolerance NEUROLOGIC: Absent: headache, focal weakness or paresthesias, dizziness, unsteady gait, seizure, mental status changes, bladder or bowel incontinence PSYCHIATRIC: Absent: anxiety, depression, suicidal or homicidal ideation, hallucinations. PHYSICAL EXAMINATION Vital Signs - 24 hr 10/11/17 10/11/17 10/11/17 00:27 02:52 05:58 Temperature 98.1 F Pulse Rate 98 H 98 H 85 Respiratory 20 20 17 Rate Blood Pressure 136/60 136/60 136/70 O2 Sat by Pulse 93 L 99 Oximetry (%) GENERAL: thin, Awake, alert, and fully oriented, in no acute distress. HEAD: Normal with no signs of trauma. EYES: Pupils equal, round and reactive to light, extraocular movements intact, sclera anicteric, conjunctiva clear. No lid lag. EARS, NOSE, THROAT: Ears normal, nares patent, oropharynx clear without exudates. Moist mucous membranes. NECK: Normal range of motion, supple without lymphadenopathy, + JVD, or masses. LUNGS: Breath sounds equal, rales to bilateral bases, clear to apexes, RR 22, No wheezes, and no crackles. No accessory muscle use. HEART: Regular rate and rhythm, normal S1 and S2, 4/6 systolic murmur, rub or gallop. ABDOMEN: Soft, nontender, not distended, normoactive bowel sounds, no guarding, no rebound, no masses. No hepatomegaly or splenomegaly. MUSCULOSKELETAL: Normal range of motion at all joints. No bony deformities or tenderness. No CVA tenderness. UPPER EXTREMITIES: 2+ pulses, warm, well-perfused. No cyanosis. No clubbing. No peripheral edema. LOWER EXTREMITIES: 2+ pulses, warm, well-perfused. No calf tenderness. No peripheral edema. NEUROLOGICAL: Cranial nerves II-XII intact. Normal speech. Normal gait. PSYCHIATRIC: Cooperative. Good eye contact. Appropriate mood and affect. SKIN: Warm, dry, normal turgor, no rashes or lesions noted, normal capillary refill. Laboratory Results - last 24 hr 10/11/17 10/11/17 10/11/17 00:30 00:30 00:30 WBC 8.2 RBC 4.00 Hgb 10.8 L Hct 34.8 L MCV 87.0 MCH 27.0 MCHC 31.1 L RDW 20.3 H D Plt Count 392 D MPV 8.6 Neutrophils % 83.5 H Lymphocytes % 7.5 L D Monocytes % 7.1 Eosinophils % 1.2 Basophils % 0.7 PT with INR 14.30 H INR 1.27 H D-Dimer Anticoagulation Therapy Puncture Site ABG pH ABG pCO2 at Pt Temp ABG pO2 at Pt Temp ABG HCO3 ABG O2 Sat (Measured) ABG O2 Content ABG Base Excess Dayo Test Carboxyhemoglobin Methemoglobin O2 Delivery Device Oxygen Flow Rate Vent Mode Vent Rate Mechanical Rate Pressure Support Vent Sodium 145 Potassium 5.0 D Chloride 108 H Carbon Dioxide 23 D Anion Gap 14 BUN 42 H D Creatinine 2.2 H Creat Clearance w eGFR 29.74 Random Glucose 115 H Calcium 8.8 Total Bilirubin 0.5 D AST 36 D ALT 27 D Alkaline Phosphatase 116 Creatine Kinase Troponin I B-Natriuretic Peptide Total Protein 6.4 Albumin 2.4 L 10/11/17 10/11/17 10/11/17 00:30 00:30 00:30 WBC RBC Hgb Hct MCV MCH MCHC RDW Plt Count MPV Neutrophils % Lymphocytes % Monocytes % Eosinophils % Basophils % PT with INR INR D-Dimer 927 H Anticoagulation Therapy Puncture Site ABG pH ABG pCO2 at Pt Temp ABG pO2 at Pt Temp ABG HCO3 ABG O2 Sat (Measured) ABG O2 Content ABG Base Excess Dayo Test Carboxyhemoglobin Methemoglobin O2 Delivery Device Oxygen Flow Rate Vent Mode Vent Rate Mechanical Rate Pressure Support Vent Sodium Potassium Chloride Carbon Dioxide Anion Gap BUN Creatinine Creat Clearance w eGFR Random Glucose Calcium Total Bilirubin AST ALT Alkaline Phosphatase Creatine Kinase 89 Troponin I 0.08 H D B-Natriuretic Peptide > 570240 H Total Protein Albumin 10/11/17 03:30 WBC RBC Hgb Hct MCV MCH MCHC RDW Plt Count MPV Neutrophils % Lymphocytes % Monocytes % Eosinophils % Basophils % PT with INR INR D-Dimer Anticoagulation Therapy Y Puncture Site Y ABG pH 7.49 H ABG pCO2 at Pt Temp 27.0 L ABG pO2 at Pt Temp 104.0 H D ABG HCO3 20.2 L ABG O2 Sat (Measured) 97.7 ABG O2 Content 18.4 ABG Base Excess -1.5 Dayo Test Not applicable Carboxyhemoglobin 1.5 Methemoglobin 1.0 O2 Delivery Device Y Oxygen Flow Rate Y Vent Mode Y Vent Rate Y Mechanical Rate Y Pressure Support Vent Y Sodium Potassium Chloride Carbon Dioxide Anion Gap BUN Creatinine Creat Clearance w eGFR Random Glucose Calcium Total Bilirubin AST ALT Alkaline Phosphatase Creatine Kinase Troponin I B-Natriuretic Peptide Total Protein Albumin ASSESSMENT/PLAN: f/e/n - low sodium diet - replete lytes prn ppx - heparin gtt - PT - OOB - SCD dispo: requires inpatient telemetry Problem List - Problem (1) CKD (chronic kidney disease) stage 3, GFR 30-59 ml/min Assessment/Plan: - creatine 2.2 baseline 1.5 strict monitoring avoid nephrotoxic agents - renal perfusion scan reviewed from 09/09 consistent with medical disease - strict i/o, repeat bmp in AM Code(s): N18.3 - CHRONIC KIDNEY DISEASE, STAGE 3 (MODERATE) (2) Acute systolic congestive heart failure due to valvular disease Assessment/Plan: - bnp greater than 175k, chest xray reviewed consistent with chf, lasix 40mg IV x 1 ordered - strict i/o and daily weight - echo reviewed severe global hypokinesis of the left ventricle, severe TR, MR - continue isordil - appreciate the input of Dr Devine, patient's private psychologist chief Code(s): I50.21 - ACUTE SYSTOLIC (CONGESTIVE) HEART FAILURE; I38 - ENDOCARDITIS , VALVE UNSPECIFIED (3) Respiratory distress, acute Assessment/Plan: - elevated d-dimer noted, unable to obtain CTA of chest due to CKD, remain on heparin gtt, chest xray pulmonary vascular congestion, s/p thorancentesis, 09/09 , 1.3L removed (transudative) appreciate the input of pulmonary. Code(s): R06.03 - ACUTE RESPIRATORY DISTRESS (4) Elevated troponin Assessment/Plan: - secondary to ischemic demand, troponin 0.08, continous cardiac monitoring, trend troponin. Code(s): R74.8 - ABNORMAL LEVELS OF OTHER SERUM ENZYMES (5) HTN (hypertension) Assessment/Plan: - b/p at goal, continue hydralazine and valsartan Code(s): I10 - ESSENTIAL (PRIMARY) HYPERTENSION Visit type - Emergency Visit Emergency Visit: Yes ED Registration Date: 10/11/17 Care time: The patient presented to the Emergency Department on the above date and was hospitalized for further evaluation of their emergent condition. - New Patient This patient is new to me today: Yes Date on this admission: 10/11/17 - Critical Care Critical Care patient: Yes Total Critical Care Time (in minutes): 45 Critical Care Statement: The care of this patient involved high complexity decision making to prevent further life threatening deterioration of the patient 's condition and/or to evaluate & treat vital organ system(s) failure or risk of failure.
[2017-10-11 08:06] LABS: TROPONIN I 0.01 ng/ml (0.00-0.05)
[2017-10-11 09:32] LABS: ANION GAP 7 (8-16); CALCIUM 8.2 mg/dl (8.4-10.2); CO2 21 mmol/L (22-28); CREATININE 2.2 mg/dl (0.6-1.3); GLUCOSE,RANDOM 109 mg/dl (74-106)
[2017-10-11] MEDS ORDERED: VALSARTAN 40 MG TABLET (FP) PO SCH (10:00)
[2017-10-11] MEDS: hydrALAZINE HCL 10 MG TABLET PO SCH (10:12)
[2017-10-11] MEDS: VALSARTAN 40 MG TABLET (FP) PO SCH (10:12)
[2017-10-11] MEDS ORDERED: FUROSEMIDE 40 MG/4 ML INJECTABLE VIAL IVPUSH ONE (10:40)
--- NOTE | 2017-10-11 10:44 | CONSULT ---
Consult - text type - Consultation Consultation Note: CARDIOLOGY ASKED BY DR. Purdy TO SEE PT. 72 YO MAN WEAKNESS/ORTHOPNEA PT SEEN, EXAMINED. X RAYS, ECG PRIOR RECORDS REVIEWED. WORKING DX: ACUTE ON CHRONIC CHF DUE TO SEVERE VALVULAR CARDIOMYOPATHY SEVERE DEPRESSION IN LEFT VENTRICULAR SYSTOLIC FUNCTION LEFT VENTRICULAR EJECTION FRACTION 20 % END DIASTOLIC DIAMETER 6.6 CM SEVERE PULMONARY HYPERTENSION PA SYSTOLIC 65 mmHG 09/09 ECHOCARDIOGRAM WITH SEVERE AORTIC REGURGITATION. RENAL INSUFFICIENCY LIMITS MEDICAL INTERVENTIONS. OPERATIVE MORTALITY RISK IS HIGH. PATIENT DECLINES ANY CONSIDERATION FOR AORTIC VALVE REPLACEMENT. ?? FEASIBILITY OF TAVR FOR AI. PROGNOSIS DISMAL. REC: INCREASE HYDRALAZINE/NITRATES TOLERATED. SHORT TERM IV LASIX. NO FURTHER CARDIAC TESTING AT THIS TIME. SOCIAL SERVICE HELP FOR DISCHARGE PLANNING. HOSPICE VS REHAB THANKS. FULL NOTE DICTATED. WILL FOLLOW.
[2017-10-11 11:42] LABS: MAGNESIUM 2.4 mg/dL (1.8-2.4)
[2017-10-11] MEDS: ISOSORBIDE DINITRATE 20 MG TABLET (FP) PO SCH ×2 (14:00→17:46)
[2017-10-11] MEDS ORDERED: PT OWN MED DRAWER 7, Y5N ONE ×2 (14:17→17:43)
--- NOTE | 2017-10-11 15:49 | CON.PULM ---
Consult Consult Specialty:: PULM/CCM Referred by:: SCOTT Reason for Consultation:: (+) D dimer / SOB - History of Present Illness Chief Complaint: Progressive SOB over 2 days History of Present Illness: 72 M, chronic congestive heart failure due to valvular heart disease, CKD stage 3, hypertension, history of RLE DVT about 4 to[address] on AC and taken off (patient cannot further elucidate), BPH, and CVA/TIA. Patient was recently admitted to [facility] on 08/29/17 and transfered to [facility] for emergent cardiac cath on 09/12/17. He ultimately declined the procedure as he was fearful of dying from complications. No travel history or sick contacts. No fever or chills. No hemoptysis or night sweats. CXR: Consistent with APE / bilateral pleural effusions. Noted BNP >175,000 - History Source History Provided By: Patient Limitations to Obtaining History: No Limitations - Past Medical History Cardio/Vascular: Yes: Aortic Insufficiency (mod on echo from 2013, severe on echo from 04/09), CHF, HTN, Mitral Insufficiency (mod-sev on echo from 04/09), Other (abnormal EKG for years, suggestive of ant-septal Mi) Renal/: Yes: Renal Inusuff, BPH Musculoskeletal: Yes: Chronic low back pain - Past Surgical History Past Surgical History: Yes: TURP (01/07), Tonsillectomy - Alcohol/Substance Use Hx Alcohol Use: No - Smoking History Smoking history: Never smoked Have you smoked in the past 12 months: No Aproximately how many cigarettes per day: 0 - Social History Usual Living Arrangement: Alone Home Medications - Allergies Allergies/Adverse Reactions: Allergies Allergy/AdvReac Type Severity Reaction Status Date / Time No Known Allergies Allergy Verified 10/11/17 01:20 - Home Medications Home Medications: Ambulatory Orders Atorvastatin Ca [Lipitor] 20 mg PO HS 10/11/17 Hydralazine HCl 10 mg PO DAILY 10/11/17 Isosorbide Dinitrate [Isordil -] 20 mg PO TID 10/11/17 Valsartan 40 mg PO DAILY 10/11/17 Review of Systems - Review of Systems Constitutional: reports: Malaise, Weakness. denies: Chills, Fever, Night Sweats , Unintentional Wgt. Loss Eyes: reports: No Symptoms HENT: reports: No Symptoms Neck: reports: No Symptoms Cardiovascular: reports: Shortness of Breath. denies: Chest Pain, Palpitations Respiratory: reports: Cough, Orthopnea, SOB, SOB on Exertion. denies: Hemoptysis, Snoring, Wheezing Gastrointestinal: reports: No Symptoms Genitourinary: reports: No Symptoms Breasts: reports: No Symptoms Reported Musculoskeletal: reports: No Symptoms Integumentary: reports: No Symptoms Neurological: reports: No Symptoms Endocrine: reports: No Symptoms Hematology/Lymphatic: reports: No Symptoms Psychiatric: reports: No Symptoms Physical Exam Vital Sings: Vital Signs Temperature 98.5 F 10/11/17 14:17 Pulse Rate 83 10/11/17 14:17 Respiratory Rate 19 10/11/17 14:17 Blood Pressure 130/50 10/11/17 14:17 O2 Sat by Pulse Oximetry (%) 99 10/11/17 07:57 Constitutional: Yes: No Distress, Anxious, Thin Eyes: Yes: Conjunctiva Clear, EOM Intact HENT: Yes: Atraumatic, Normocephalic Neck: Yes: Supple, Trachea Midline Cardiovascular: Yes: Regular Rate and Rhythm, JVD, Gallop, Murmur Respiratory: Yes: Diminished, On Nasal O2, Rales, Rhonchi. No: Stridor, Tachypnea, Wheezes ...Inspection: Yes: WNL ...Clubbing: No Gastrointestinal: Yes: Normal Bowel Sounds, Soft Renal/: Yes: WNL Breast(s): Yes: WNL, Skin Changes Extremities: Yes: WNL Edema: Yes Peripheral Pulses WNL: Yes Integumentary: Yes: WNL Neurological: Yes: WNL, Alert, Oriented ...Motor Strength: WNL Psychiatric: Yes: WNL, Alert, Oriented Labs: CBC, BMP 10/11/17 00:30 10/11/17 09:15 ABG Results ABG pH 7.49 (7.35-7.45) H 10/11/17 03:30 ABG pCO2 at Pt Temp 27.0 mmHg (35-45) L 10/11/17 03:30 ABG pO2 at Pt Temp 104.0 mmHg (70-100) H D 10/11/17 03:30 ABG HCO3 20.2 meq/L (22-26) L 10/11/17 03:30 ABG O2 Sat (Measured) 97.7 % (90-98.9) 10/11/17 03:30 ABG O2 Content 18.4 % vol (15-22) 10/11/17 03:30 ABG Base Excess -1.5 meq/l (-2-2) 10/11/17 03:30 Imaging - Results Chest X-ray: Report Reviewed, Image Reviewed Problem List - Problems (1) Pleural effusion Code(s): J90 - PLEURAL EFFUSION, NOT ELSEWHERE CLASSIFIED (2) Acute systolic congestive heart failure due to valvular disease Code(s): I50.21 - ACUTE SYSTOLIC (CONGESTIVE) HEART FAILURE; I38 - ENDOCARDITIS , VALVE UNSPECIFIED (3) At high risk for pulmonary embolism Code(s): Z91.89 - OT PERSONAL RISK FACTORS, NOT ELSEWHERE CLASSIFIED (4) CKD (chronic kidney disease) stage 3, GFR 30-59 ml/min Code(s): N18.3 - CHRONIC KIDNEY DISEASE, STAGE 3 (MODERATE) (5) Elevated troponin Code(s): R74.8 - ABNORMAL LEVELS OF OTHER SERUM ENZYMES (6) Shortness of breath Code(s): R06.02 - SHORTNESS OF BREATH (7) CHF (congestive heart failure) Code(s): I50.9 - HEART FAILURE, UNSPECIFIED Qualifiers: Congestive heart failure type: unspecified congestive heart failure type Congestive heart failure chronicity: unspecified congestive heart failure chronicity Qualified Code(s): I50.9 - Heart failure, unspecified (8) HTN (hypertension) Code(s): I10 - ESSENTIAL (PRIMARY) HYPERTENSION Assessment/Plan Low clinical suspicion for VTE, however patient reports a history of what sounds like an unprovoked RLE DVT about 5 years ago US of the LE to R/O DVT Very limited by choices to R/O PE as he cannot receive IV contrast due to low CrCL and V/Q limited by a grossly abnormal CXR Cautious diuresis Agree with IV Heparin for now O2 as needed Daily weight If CXR improves, V/Q scanning may be a possibility if there still is a clinical concern for PE Do not suspect an infectious process -> Monitor off ABX Will follow Thank you. Dr Solis
[2017-10-11 16:02] LABS: TROPONIN I (DFP) 0.06 ng/ml (0.03-0.50)
--- NOTE | 2017-10-11 18:40 | CONS ---
DATE OF CONSULTATION: 10/11/2017 CARDIOLOGY CONSULTATION REQUESTING PHYSICIAN: Cynthia Winter N.P. PATIENT PROFILE: The patient is a 72-year-old man admitted on October 11, 2017, because of orthopnea and weakness. The patient has a long and complicated prior medical history . He has known severe aortic insufficiency and heart failure with depressed left ventricular systolic function. In addition, there is a previous history of cerebrovascular accident and chronic renal insufficiency requiring short-term hemodialysis. Most recently he was hospitalized from September 12 to October 04, 2017, at [facility] for heart failure. An echocardiographic study at that time showed a left ventricular ejection fraction of 20% with severe aortic insufficiency, mild mitral insufficiency, and a pulmonary artery systolic pressure of 65 mmHg, consistent with severe pulmonary hypertension. The left ventricle was significantly dilated with an end-diastolic dimension of 6.6 cm. The patient was felt to have a prohibitive risk for operative intervention and declined any consideration in this regard. Plans were made for rehabilitation/physical therapy but there was no insurance coverage in this regard. He was discharged to home, and is admitted now with complaints of shortness of breath, inability to lie flat. There is no chest pain, no palpitations, no syncope. The present medications include heparin, hydralazine 10 mg/day, Lipitor 20 mg/day, Lasix intravenously and Isordil 20 mg t.i.d. PRIOR MEDICAL HISTORY: Hyperlipidemia without any evidence of coronary disease. A August 2017 coronary arteriogram demonstrated no evidence of obstructive coronary disease. The end-diastolic pressures were significantly elevated. The findings were consistent with cardiogenic shock. Status post cerebrovascular accident with neurological recovery. Deep vein thrombophlebitis, prostatic hypertrophy, hypertension. SOCIAL HISTORY: The patient is a long-time resident of [place]. He has no history of alcohol abuse. He does not smoke. REVIEW OF SYSTEMS: General: No fever or chills. Pulmonary: Dry nonproductive cough, no hemoptysis. Cardiac: No edema. Gastrointestinal: No melena, no vomiting. Neurological: No focal deficit. PHYSICAL EXAMINATION: General: The patient appears in no acute distress, awake and alert lying at 45 degrees. The blood pressure is 136/70, the temperature afebrile, the heart rate is 85, the respiratory rate is 20 per minute, the weight is 102 pounds, the oxygen saturation is 99%. Chest: There are decreased breath sounds at the right base with dullness to percussion. There is no wheezing. There are no rales. The heart sounds are normal. There is a 2/4 early diastolic blow and a 2/6 systolic ejection murmur at the apex best heard with breath holding. An S3 gallop is detected. Abdomen: Soft and nontender. No peripheral edema. Neurological: No focal neurological deficit. DATABASE: The electrocardiogram demonstrates sinus rhythm, left atrial abnormality, low voltage limb leads, possible septal infarct indeterminate age, slight interventricular conduction delay, and nonspecific ST and T wave changes. The chest x-ray was reviewed. There is an AP portable film. The heart size cannot be accurately assessed due to the technique of the film. There is evidence of bilateral pleural effusions right greater than left, and bilateral basilar infiltrates. LABORATORY: Laboratory studies of note include a white blood cell count of 8.2, hematocrit 34%, the platelet count is 392,000. The INR is 1.3. An arterial blood gas demonstrated pH of 7.49, pCO2 of 27 and a pO2 of 104 with supplemental oxygen. The serum sodium is 144, the BUN 42, the creatinine 2.2, troponin level is 0.06 to 0.08 and the BNP level is greater than 175,000. 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 There is severe depression in left ventricular systolic function reflected by a left ventricular ejection fraction of 20% with an end-diastolic dimension of 6.6 cm with severe pulmonary hypertension as indicated by a pulmonary artery systolic pressure of 65 mmHg on the September 09 echocardiogram. This is in the setting of severe aortic regurgitation. Renal insufficiency will limit medical intervention. The operative mortality risk is high. The patient has declined any consideration for aortic valve replacement. There is some data of early studies regarding the feasibility of transaortic catheter based valve replacement for aortic insufficiency. The patient's prognosis is dismal. RECOMMENDATION: I have recommended the followin. Increase hydralazine and nitrates as tolerated. 2. Short-term parenteral Lasix. 3. No further cardiac testing at this time. 4. Social service help for discharge planning for considerations of hospice versus short-term inpatient rehabilitation. Thank you for allowing me to take part in the care of this pleasant patient. Will follow along with you. SHYAM RUDOLPH M.D. MICHAEL/[id number] cc: Luna Resendiz M.D. cc: Yenny Choe M.D.
[2017-10-11] MEDS: ATORVASTATIN CA 20 MG TABLET (FP) PO SCH (21:11)
--- NOTE | 2017-10-11 21:11 | EKG ---
Test Reason : Blood Pressure : / mmHG Vent. Rate : 095 BPM Atrial Rate : 095 BPM P-R Int : 184 ms QRS Dur : 114 ms QT Int : 400 ms P-R-T Axes : 070 059 189 degrees QTc Int : 502 ms NORMAL SINUS RHYTHM POSSIBLE LEFT ATRIAL ENLARGEMENT SEPTAL INFARCT (CITED ON OR BEFORE 29-DEC-2016) T WAVE ABNORMALITY, CONSIDER INFEROLATERAL ISCHEMIA PROLONGED QT ABNORMAL ECG WHEN COMPARED WITH ECG OF 31-AUG-2017 09:30, NO SIGNIFICANT CHANGE WAS FOUND Confirmed by MD ALVERTO, CHRIS ([id number]) on 10/11/2017 9:11:06 PM Referred By: DR MUNGUIA Confirmed By:CHRIS DEL TORO MD
[2017-10-11] MEDS ORDERED: diphenhydrAMINE HCL 25 MG CAPSULE (FP) PO ONE (23:23)
[2017-10-12] MEDS: ALBUTEROL SO4 2.5/IPRATROPIUM 0.5 INH SOL 3 ML VIAL.NEB. NEB PRN (06:45)
[2017-10-12] MEDS: HEPARIN INFUSION - 25,000 UNITS/500 ML INFUS.BAG IVPB SCH (06:46)
[2017-10-12 08:16] LABS: BASO % 0.9 % (0-2.0); EOS % 1.5 % (0-4.5); MCH 26.8 pg (25.7-33.7); MCHC 31.3 g/dl (32.0-35.9); MEAN CELL VOLUME 85.5 fl (80-96); MEAN PLT VOLUME 9.4 fl (7.5-11.1); NEUT % 78.4 % (42.8-82.8); PLATELET COUNT 337 K/MM3 (134-434); RDW 19.9 % (11.9-15.9); WHITE BLOOD COUNT 8.3 K/mm3 (4.0-10.8)
[2017-10-12 08:36] LABS: CO2 20 mmol/L (22-28); CPK 54 IU/L (39-308); CREATININE 2.1 mg/dl (0.6-1.3); GLUCOSE,RANDOM 103 mg/dl (74-106); PHOSPHOROUS 4.2 mg/dl (2.5-4.6)
[2017-10-12 08:41] LABS: TROPONIN I (DFP) 0.06 ng/ml (0.03-0.50)
[2017-10-12 08:42] LABS: ANION GAP -1 (8-16); CALCIUM 8.4 mg/dl (8.4-10.2)
[2017-10-12] MEDS ORDERED: FUROSEMIDE 40 MG/4 ML INJECTABLE VIAL IVPUSH ONE (09:02)
--- NOTE | 2017-10-12 09:04 | PN ---
Physical Exam: SUBJECTIVE: Patient seen and examined, reports feeling short of breath, denies any chest pain. OBJECTIVE: Patient is a 72 y/o male with a past medical history of chronic valvular congestive heart failure, CKD stage 3, hypertension, DVT, BPH, and CVA /TIA. patient was admitted from the emergency department for emergent condition. Vital Signs Period Temp Pulse Resp BP Sys/Martinez Pulse Ox Last 24 Hr 98.0 F-98.7 F 83-108 18-20 130-155/50-69 95-99 GENERAL: The patient is awake, alert, and fully oriented, in no acute distress. HEAD: Normal with no signs of trauma. EYES: PERRL, extraocular movements intact, sclera anicteric, conjunctiva clear. No ptosis. ENT: Ears normal, nares patent, oropharynx clear without exudates, moist mucous membranes. NECK: Trachea midline, full range of motion, supple, +jvd LUNGS: Breath sounds equal, clear to auscultation bilaterally to apexes, rales to right lower lobe moderately diminished, crackles to left base, no wheezes, + accessory muscle use. RR 24 HEART: Regular rate and rhythm, S1, S2, 4/6 systolic murmur, rub or gallop. ABDOMEN: Soft, nontender, nondistended, normoactive bowel sounds, no guarding, no rebound, no hepatosplenomegaly, no masses. EXTREMITIES: 2+ pulses, warm, well-perfused, no edema. NEUROLOGICAL: Cranial nerves II through XII grossly intact. Normal speech, gait not observed. PSYCH: Normal mood, normal affect. SKIN: Warm, dry, normal turgor, no rashes or lesions noted Laboratory Results - last 24 hr 10/11/17 10/11/17 10/11/17 00:30 09:00 09:15 WBC RBC Hgb Hct MCV MCH MCHC RDW Plt Count MPV Neutrophils % Lymphocytes % Monocytes % Eosinophils % Basophils % PTT (Actin FS) Sodium 144 Potassium 4.2 Chloride 116 H Carbon Dioxide 21 L Anion Gap 7 L BUN 42 H D Creatinine 2.2 H Random Glucose 109 H D Calcium 8.2 L Phosphorus Magnesium 2.4 Cancelled Creatine Kinase Troponin I B-Natriuretic Peptide > 717093 H 10/11/17 10/11/17 10/12/17 14:00 21:00 07:30 WBC 8.3 RBC 3.61 L Hgb 9.7 L D Hct 30.9 L D MCV 85.5 MCH 26.8 MCHC 31.3 L RDW 19.9 H D Plt Count 337 D MPV 9.4 Neutrophils % 78.4 Lymphocytes % 11.5 D Monocytes % 7.7 Eosinophils % 1.5 D Basophils % 0.9 PTT (Actin FS) 51.3 H Sodium Potassium Chloride Carbon Dioxide Anion Gap BUN Creatinine Random Glucose Calcium Phosphorus Magnesium Creatine Kinase 50 Troponin I 0.06 D B-Natriuretic Peptide 10/12/17 07:30 WBC RBC Hgb Hct MCV MCH MCHC RDW Plt Count MPV Neutrophils % Lymphocytes % Monocytes % Eosinophils % Basophils % PTT (Actin FS) Sodium 139 Potassium 4.3 Chloride 120 H Carbon Dioxide 20 L Anion Gap -1 L BUN 43 H Creatinine 2.1 H Random Glucose 103 Calcium 8.4 Phosphorus 4.2 Magnesium 2.0 Creatine Kinase 54 Troponin I 0.06 B-Natriuretic Peptide Active Medications Generic Name Dose Route Start Last Admin Trade Name Freq PRN Reason Stop Dose Admin Albuterol/Ipratropium 1 amp 10/11/17 14:38 10/12/17 06:45 Duoneb - NEB 1 amp Q6H PRN Administration SHORTNESS OF BREATH Atorvastatin Calcium 20 mg 10/11/17 22:00 10/11/17 21:11 Lipitor - PO 20 mg HS ELIO Administration Furosemide 40 mg 10/12/17 09:02 Lasix Injection - IVPUSH 10/12/17 09:03 ONCE ONE Heparin Sodium (Porcine) 1,000 unit 10/11/17 02:42 10/11/17 11:24 Heparin - IVPUSH 1,000 unit PRN PRN Administration Heparin Heparin Sodium (Porcine) 5,000 unit 10/11/17 02:42 Heparin - IVPUSH PRN PRN Heparin Hydralazine HCl 10 mg 10/11/17 10:00 10/11/17 10:12 Apresoline - PO 10 mg DAILY ELIO Administration Heparin Sodium/Dextrose 25,000 units in 500 mls @ 16 mls/hr 10/11/17 02:45 06:46 Heparin Infusion - IVPB 900 units/hr TITR ELIO 18 mls/hr Protocol Administration 800 UNITS/HR Isosorbide Dinitrate 20 mg 10/11/17 13:00 10/11/17 17:46 Isordil - PO 20 mg TIDISORDIL ELIO Administration Valsartan 40 mg 10/11/17 10:00 10/11/17 10:12 Diovan - PO 40 mg DAILY ELIO Administration IMAGING CXR (10/11/17) Progressive bibasilar changes echo: 09/09 severe global hypokinesis of the left ventricle, severe TR, MR ASSESSMENT/PLAN: 1) cardiovascular acute systolic congestive heart failure due to valvular disease - chest xray reviewed today, unchanged, rales noted on exam, lasix 40mg IV x 1 ordered, 0.6kg weight loss noted - continue i/o and daily weight - continue isordil hypertension - blood pressure at goal continue hydralizine and valsartan elevated troponin - troponin 0.06 down trended and stable - no events on telemetry 2) nephrology ckd - creatine 2.1 baseline 1.5, strict monitoring - repeat bmp in AM 3) pulmonary acute respiratory distress - secondary to moderate right pleural effusion vs PE, unable to perform VQ scan due to pleural effusion - continue heparin gtt - pulmonary consulted and following f/e/n - low sodium diet - replete lytes prn ppx - heparin gtt - PT - OOB - SCD dispo: requires inpatient telemetry Problem List - Problems (1) CKD (chronic kidney disease) stage 3, GFR 30-59 ml/min Code(s): N18.3 - CHRONIC KIDNEY DISEASE, STAGE 3 (MODERATE) (2) Acute systolic congestive heart failure due to valvular disease Code(s): I50.21 - ACUTE SYSTOLIC (CONGESTIVE) HEART FAILURE; I38 - ENDOCARDITIS , VALVE UNSPECIFIED (3) Respiratory distress, acute Code(s): R06.03 - ACUTE RESPIRATORY DISTRESS (4) Elevated troponin Code(s): R74.8 - ABNORMAL LEVELS OF OTHER SERUM ENZYMES (5) HTN (hypertension) Code(s): I10 - ESSENTIAL (PRIMARY) HYPERTENSION Visit type - Emergency Visit Emergency Visit: Yes ED Registration Date: 10/11/17 Care time: The patient presented to the Emergency Department on the above date and was hospitalized for further evaluation of their emergent condition. - New Patient This patient is new to me today: No - Critical Care Critical Care patient: No - Discharge Referral Referred to [facility] Med [facility].C.: No
[2017-10-12] MEDS ORDERED: PT OWN MED DRAWER 7, Y5N ONE ×2 (09:30→13:15)
[2017-10-12] MEDS: ISOSORBIDE DINITRATE 20 MG TABLET (FP) PO SCH ×3 (09:41→17:33)
[2017-10-12] MEDS: hydrALAZINE HCL 10 MG TABLET PO SCH (09:42)
[2017-10-12] MEDS: VALSARTAN 40 MG TABLET (FP) PO SCH (09:42)
--- NOTE | 2017-10-12 10:46 | PN ---
Progress Note, Physician History of Present Illness: PULMONARY ALERT,STILL C/O SOB,-CP. DUPLEX CHRONIC PARTIAL THROMBOSIS R GREAT SAPHENOUS VEIN,- ACUTE DVT - Current Medication List Current Medications: Active Medications Albuterol/Ipratropium (Duoneb -) 1 amp NEB Q6H PRN PRN Reason: SHORTNESS OF BREATH Last Admin: 10/12/17 06:45 Dose: 1 amp Atorvastatin Calcium (Lipitor -) 20 mg PO HS ELIO Last Admin: 10/11/17 21:11 Dose: 20 mg Heparin Sodium (Porcine) (Heparin -) 1,000 unit IVPUSH PRN PRN PRN Reason: Heparin Last Admin: 10/11/17 11:24 Dose: 1,000 unit Heparin Sodium (Porcine) (Heparin -) 5,000 unit IVPUSH PRN PRN PRN Reason: Heparin Hydralazine HCl (Apresoline -) 10 mg PO DAILY ON LICENSE OF [facility] Last Admin: 10/12/17 09:42 Dose: 10 mg Heparin Sodium/Dextrose (Heparin Infusion -) 25,000 units in 500 mls @ 16 mls/ hr IVPB TITR ELIO; 800 UNITS/HR PRN Reason: Protocol Last Admin: 10/12/17 06:46 Dose: 900 units/hr, 18 mls/hr Isosorbide Dinitrate (Isordil -) 20 mg PO TIDISORDIL ON LICENSE OF [facility] Last Admin: 10/12/17 09:41 Dose: 20 mg Valsartan (Diovan -) 40 mg PO DAILY ON LICENSE OF [facility] Last Admin: 10/12/17 09:42 Dose: 40 mg - Objective Vital Signs: Vital Signs Temperature 98.1 F 10/12/17 09:33 Pulse Rate 97 H 10/12/17 09:33 Respiratory Rate 18 10/12/17 09:33 Blood Pressure 144/71 10/12/17 09:33 O2 Sat by Pulse Oximetry (%) 95 10/12/17 09:00 Constitutional: Yes: Well Nourished, Anxious Eyes: Yes: WNL HENT: Yes: WNL Cardiovascular: Yes: Regular Rate and Rhythm, S1, S2 Respiratory: Yes: Rales (BIALERAL CRACKLES1/3 UP) Extremities: Yes: WNL Edema: No Labs: CBC, BMP 10/12/17 07:30 10/12/17 07:30 INR, PTT INR 1.27 (0.82-1.09) H 10/11/17 00:30 - ....Imaging Chest X-ray: Report Reviewed, Image Reviewed Assessment/Plan Problem List - Problems (1) Pleural effusion Code(s): J90 - PLEURAL EFFUSION, NOT ELSEWHERE CLASSIFIED (2) Acute systolic congestive heart failure due to valvular disease Code(s): I50.21 - ACUTE SYSTOLIC (CONGESTIVE) HEART FAILURE; I38 - ENDOCARDITIS , VALVE UNSPECIFIED (3) At high risk for pulmonary embolism Code(s): Z91.89 - [facility] PERSONAL RISK FACTORS, NOT ELSEWHERE CLASSIFIED (4) CKD (chronic kidney disease) stage 3, GFR 30-59 ml/min Code(s): N18.3 - CHRONIC KIDNEY DISEASE, STAGE 3 (MODERATE) (5) Elevated troponin Code(s): R74.8 - ABNORMAL LEVELS OF OTHER SERUM ENZYMES (6) Shortness of breath Code(s): R06.02 - SHORTNESS OF BREATH (7) CHF (congestive heart failure) Code(s): I50.9 - HEART FAILURE, UNSPECIFIED Qualifiers: Congestive heart failure type: unspecified congestive heart failure type Congestive heart failure chronicity: unspecified congestive heart failure chronicity Qualified Code(s): I50.9 - Heart failure, unspecified (8) HTN (hypertension) Code(s): I10 - ESSENTIAL (PRIMARY) HYPERTENSION Assessment/Plan Cautious diuresis Vascular opinion O2 as needed Daily weight heparin DR DICKINSON
--- NOTE | 2017-10-12 11:08 | PN ---
Progress Note (short form) - Note Progress Note: Vascular surgery Venous duplex reviewed. No DVT in either extremity. 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 No signs of any DVT. High suspicion of PE Pt on IV heparin. No need for any vascular intervention. Reinier Parker DO
--- NOTE | 2017-10-12 17:48 | PN ---
Progress Note, Physician History of Present Illness: Feels better today - Current Medication List Current Medications: Active Medications Albuterol/Ipratropium (Duoneb -) 1 amp NEB Q6H PRN PRN Reason: SHORTNESS OF BREATH Last Admin: 10/12/17 06:45 Dose: 1 amp Atorvastatin Calcium (Lipitor -) 20 mg PO HS ELIO Last Admin: 10/11/17 21:11 Dose: 20 mg Heparin Sodium (Porcine) (Heparin -) 1,000 unit IVPUSH PRN PRN PRN Reason: Heparin Last Admin: 10/11/17 11:24 Dose: 1,000 unit Heparin Sodium (Porcine) (Heparin -) 5,000 unit IVPUSH PRN PRN PRN Reason: Heparin Hydralazine HCl (Apresoline -) 10 mg PO DAILY [facility] Last Admin: 10/12/17 09:42 Dose: 10 mg Heparin Sodium/Dextrose (Heparin Infusion -) 25,000 units in 500 mls @ 16 mls/ hr IVPB TITR ELIO; 800 UNITS/HR PRN Reason: Protocol Last Admin: 10/12/17 06:46 Dose: 900 units/hr, 18 mls/hr Isosorbide Dinitrate (Isordil -) 20 mg PO TIDISORDIL [facility] Last Admin: 10/12/17 17:33 Dose: 20 mg Valsartan (Diovan -) 40 mg PO DAILY [facility] Last Admin: 10/12/17 09:42 Dose: 40 mg - Objective Vital Signs: Vital Signs Temperature 98.5 F 10/12/17 14:08 Pulse Rate 92 H 10/12/17 14:08 Respiratory Rate 19 10/12/17 14:08 Blood Pressure 134/52 10/12/17 14:08 O2 Sat by Pulse Oximetry (%) 94 L 10/12/17 14:08 Constitutional: Yes: No Distress Eyes: Yes: WNL HENT: Yes: Atraumatic Neck: Yes: Supple Cardiovascular: Yes: Regular Rate and Rhythm, Murmur (diastolic) Respiratory: Yes: Other (decr at bases). No: Rales, Rhonchi, Wheezes Gastrointestinal: Yes: Normal Bowel Sounds. No: Soft Edema: No Peripheral Pulses WNL: Yes Neurological: Yes: Alert, Oriented Psychiatric: Yes: Alert, Oriented Labs: CBC, BMP 10/12/17 07:30 10/12/17 07:30 INR, PTT INR 1.27 (0.82-1.09) H 10/11/17 00:30 Assessment/Plan 72 yo male with HTN, CRI with hx of obstruction, AR -. now severe with sever LV dysfunction and PHTN, recently evaluated for valve repl at [facility] -. was too weak initially, then refused , here form home with acute on chronic CHF Feel better today with IV lasix Concerns for PE - because of respiratory acidosis, elevated ddimer and hx of DVT -> on hep drip Tele with episode of ? afib wit aberration ws NSVT (most likely) REc: Cont IV lasix for now Cont other meds Pt not on BB for unclear reasons -> will try to find out from [facility]'s records I discussed the possibility of off label TAVR for his AI -. he is open to the idea of being evaluated for it (Dr Hdz at [facility] is willing to consider him) -> I will reach out in the morning Pt may receive sleeping pills
[2017-10-12] MEDS: ATORVASTATIN CA 20 MG TABLET (FP) PO SCH (21:10)
[2017-10-13] MEDS ORDERED: MELATONIN 5 MG TABLETS PO ONE (01:15)
--- NOTE | 2017-10-13 08:13 | PN ---
Physical Exam: SUBJECTIVE: Patient seen and examined, reports feeling short of breath, denies any chest pain. OBJECTIVE: Patient is a 72 y/o male with a past medical history of chronic valvular congestive heart failure, CKD stage 3, hypertension, DVT, BPH, and CVA /TIA. patient was admitted from the emergency department for emergent condition. Vital Signs Period Temp Pulse Resp BP Sys/Martinez Pulse Ox Last 24 Hr 97.8 F-98.5 F 92-102 18-20 134-156/52-71 94-97 GENERAL: The patient is awake, alert, and fully oriented, in no acute distress. HEAD: Normal with no signs of trauma. EYES: PERRL, extraocular movements intact, sclera anicteric, conjunctiva clear. No ptosis. ENT: Ears normal, nares patent, oropharynx clear without exudates, moist mucous membranes. NECK: Trachea midline, full range of motion, supple, +jvd LUNGS: Breath sounds equal, clear to auscultation bilaterally to apexes, rales to right lower lobe moderately diminished, crackles to left base, no wheezes, no accessory muscle use. HEART: Regular rate and rhythm, S1, S2, 4/6 systolic murmur, rub or gallop. ABDOMEN: Soft, nontender, nondistended, normoactive bowel sounds, no guarding, no rebound, no hepatosplenomegaly, no masses. EXTREMITIES: 2+ pulses, warm, well-perfused, no edema. NEUROLOGICAL: Cranial nerves II through XII grossly intact. Normal speech, gait not observed. PSYCH: Normal mood, normal affect. SKIN: Warm, dry, normal turgor, no rashes or lesions noted Laboratory Results - last 24 hr CBC WBC 8.7 K/mm3 (4.0-10.8) 10/13/17 07:30 RBC 3.64 M/mm3 (4.00-5.60) L 10/13/17 07:30 Hgb 9.8 GM/dl (11.7-16.9) L 10/13/17 07:30 Hct 30.8 % (35.4-49) L 10/13/17 07:30 MCV 84.8 fl (80-96) 10/13/17 07:30 MCH 26.8 pg (25.7-33.7) 10/13/17 07:30 MCHC 31.6 g/dl (32.0-35.9) L 10/13/17 07:30 RDW 19.7 % (11.9-15.9) H 10/13/17 07:30 Plt Count 302 K/MM3 (134-434) 10/13/17 07:30 MPV 9.3 fl (7.5-11.1) 10/13/17 07:30 Neutrophils % 81.5 % (42.8-82.8) 10/13/17 07:30 Lymphocytes % 9.3 % (8-40) 10/13/17 07:30 Monocytes % 7.3 % (3.8-10.2) 10/13/17 07:30 Eosinophils % 1.2 % (0-4.5) 10/13/17 07:30 Basophils % 0.7 % (0-2.0) 10/13/17 07:30 CMP Sodium 138 mmol/L (136-145) 10/13/17 07:30 Potassium 4.3 mmol/L (3.5-5.1) 10/13/17 07:30 Chloride 108 mmol/L (98-107) H 10/13/17 07:30 Carbon Dioxide 20 mmol/L (22-28) L 10/13/17 07:30 Anion Gap 10 (8-16) 10/13/17 07:30 BUN 43 mg/dl (7-18) H 10/13/17 07:30 Creatinine 1.9 mg/dl (0.6-1.3) H 10/13/17 07:30 Creat Clearance w eGFR 29.74 (>60) 10/11/17 00:30 Random Glucose 105 mg/dl (74-106) 10/13/17 07:30 Calcium 8.5 mg/dl (8.4-10.2) 10/13/17 07:30 Phosphorus 4.2 mg/dl (2.5-4.6) 10/13/17 07:30 Magnesium 2.0 mg/dL (1.8-2.4) 10/13/17 07:30 Total Bilirubin 0.5 mg/dL (0.2-1.0) D 10/11/17 00:30 AST 36 U/L (15-37) D 10/11/17 00:30 ALT 27 U/L (12-78) D 10/11/17 00:30 Alkaline Phosphatase 116 U/L (45-117) 10/11/17 00:30 Creatine Kinase 54 IU/L (39-308) 10/12/17 07:30 Troponin I 0.06 ng/ml (0.03-0.50) 10/12/17 07:30 B-Natriuretic Peptide > 955413 pg/ml (5-125) H 10/11/17 00:30 Total Protein 6.4 g/dl (6.4-8.2) 10/11/17 00:30 Albumin 2.4 g/dl (3.4-5.0) L 10/11/17 00:30 Active Medications Generic Name Dose Route Start Last Admin Trade Name Freq PRN Reason Stop Dose Admin Albuterol/Ipratropium 1 amp 10/11/17 14:38 10/12/17 06:45 Duoneb - NEB 1 amp Q6H PRN Administration SHORTNESS OF BREATH Atorvastatin Calcium 20 mg 10/11/17 22:00 10/12/17 21:10 Lipitor - PO 20 mg HS ELIO Administration Heparin Sodium (Porcine) 1,000 unit 10/11/17 02:42 10/11/17 11:24 Heparin - IVPUSH 1,000 unit PRN PRN Administration Heparin Heparin Sodium (Porcine) 5,000 unit 10/11/17 02:42 Heparin - IVPUSH PRN PRN Heparin Hydralazine HCl 10 mg 10/11/17 10:00 10/12/17 09:42 Apresoline - PO 10 mg DAILY ELIO Administration Heparin Sodium/Dextrose 25,000 units in 500 mls @ 16 mls/hr 10/11/17 02:45 06:46 Heparin Infusion - IVPB 900 units/hr TITR ELIO 18 mls/hr Protocol Administration 800 UNITS/HR Isosorbide Dinitrate 20 mg 10/11/17 13:00 10/12/17 17:33 Isordil - PO 20 mg TIDISORDIL ELIO Administration Valsartan 40 mg 10/11/17 10:00 10/12/17 09:42 Diovan - PO 40 mg DAILY ELIO Administration IMAGING CXR (10/11/17) Progressive bibasilar changes CXR (10/12/17) no significant change CXR (10/13/17) bilateral pleural effusion echo: 09/09 severe global hypokinesis of the left ventricle, severe TR, MR ASSESSMENT/PLAN: 1) cardiovascular acute systolic congestive heart failure due to valvular disease - chest xray reviewed today, lasix 40mg IV x 1 ordered, 1.8kg weight loss noted - continue i/o and daily weight - continue isordil - discussed with Dr Resendiz, patient is a poor candidate for open heart valve replacement, however, may be a candidate for AI TAVR, Dr Resendiz is in contact with Dr Jens Swenson, [facility] for transfer, pending approval by Dr Swenson hypertension - blood pressure at goal continue hydralizine and valsartan elevated troponin - troponin 0.06 down trended and stable - no events on telemetry 2) nephrology ckd - creatine 1.9 baseline 1.5, improving, strict monitoring - repeat bmp in AM 3) pulmonary acute respiratory distress - pt on heparin gtt, discussed with vascular surgeon, Dr Parker, cardiology, Dr Resendiz, pulmonary Dr Ray, low clinical suspicion for PE, agree with d/c of heparin gtt. - repeat cxr unchanged, appreciate pulmonary input in regards thorancentesis. - pulmonary consulted and following f/e/n - low sodium diet - replete lytes prn ppx - heparin sq - PT - OOB - SCD dispo: requires inpatient telemetry, awaiting accepting physican at [facility]. Problem List - Problems (1) CKD (chronic kidney disease) stage 3, GFR 30-59 ml/min Code(s): N18.3 - CHRONIC KIDNEY DISEASE, STAGE 3 (MODERATE) (2) Acute systolic congestive heart failure due to valvular disease Code(s): I50.21 - ACUTE SYSTOLIC (CONGESTIVE) HEART FAILURE; I38 - ENDOCARDITIS , VALVE UNSPECIFIED (3) Respiratory distress, acute Code(s): R06.03 - ACUTE RESPIRATORY DISTRESS (4) Elevated troponin Code(s): R74.8 - ABNORMAL LEVELS OF OTHER SERUM ENZYMES (5) HTN (hypertension) Code(s): I10 - ESSENTIAL (PRIMARY) HYPERTENSION Visit type - Emergency Visit Emergency Visit: Yes ED Registration Date: 10/11/17 Care time: The patient presented to the Emergency Department on the above date and was hospitalized for further evaluation of their emergent condition. - New Patient This patient is new to me today: No - Critical Care Critical Care patient: No - Discharge Referral Referred to [facility] No
[2017-10-13] MEDS ORDERED: FUROSEMIDE 40 MG/4 ML INJECTABLE VIAL IVPUSH ONE (08:20)
[2017-10-13] MEDS ORDERED: PT OWN MED DRAWER 7, Y5N ONE ×3 (08:52→17:32)
[2017-10-13] MEDS: ISOSORBIDE DINITRATE 20 MG TABLET (FP) PO SCH ×3 (09:01→17:36)
[2017-10-13 09:03] LABS: BASO % 0.7 % (0-2.0); EOS % 1.2 % (0-4.5); MCH 26.8 pg (25.7-33.7); MCHC 31.6 g/dl (32.0-35.9); MEAN CELL VOLUME 84.8 fl (80-96); MEAN PLT VOLUME 9.3 fl (7.5-11.1); NEUT % 81.5 % (42.8-82.8); PLATELET COUNT 302 K/MM3 (134-434); RDW 19.7 % (11.9-15.9); WHITE BLOOD COUNT 8.7 K/mm3 (4.0-10.8)
[2017-10-13 09:10] LABS: ANION GAP 10 (8-16); CALCIUM 8.5 mg/dl (8.4-10.2); CO2 20 mmol/L (22-28); CREATININE 1.9 mg/dl (0.6-1.3); GLUCOSE,RANDOM 105 mg/dl (74-106); PHOSPHOROUS 4.2 mg/dl (2.5-4.6)
--- NOTE | 2017-10-13 10:08 | PN ---
Progress Note, Physician History of Present Illness: pulmonary alert,weak,less dyspneic,-cp - Current Medication List Current Medications: Active Medications Albuterol/Ipratropium (Duoneb -) 1 amp NEB Q6H PRN PRN Reason: SHORTNESS OF BREATH Last Admin: 10/12/17 06:45 Dose: 1 amp Atorvastatin Calcium (Lipitor -) 20 mg PO HS ELIO Last Admin: 10/12/17 21:10 Dose: 20 mg Heparin Sodium (Porcine) (Heparin -) 1,000 unit IVPUSH PRN PRN PRN Reason: Heparin Last Admin: 10/11/17 11:24 Dose: 1,000 unit Heparin Sodium (Porcine) (Heparin -) 5,000 unit IVPUSH PRN PRN PRN Reason: Heparin Hydralazine HCl (Apresoline -) 10 mg PO DAILY [facility] Last Admin: 10/12/17 09:42 Dose: 10 mg Heparin Sodium/Dextrose (Heparin Infusion -) 25,000 units in 500 mls @ 16 mls/ hr IVPB TITR ELIO; 800 UNITS/HR PRN Reason: Protocol Last Admin: 10/12/17 06:46 Dose: 900 units/hr, 18 mls/hr Isosorbide Dinitrate (Isordil -) 20 mg PO TIDISORDIL [facility] Last Admin: 10/13/17 09:01 Dose: 20 mg Valsartan (Diovan -) 40 mg PO DAILY [facility] Last Admin: 10/12/17 09:42 Dose: 40 mg - Objective Vital Signs: Vital Signs Temperature 97.8 F 10/13/17 08:43 Pulse Rate 109 H 10/13/17 08:43 Respiratory Rate 18 10/13/17 08:43 Blood Pressure 151/75 10/13/17 08:43 O2 Sat by Pulse Oximetry (%) 95 10/13/17 08:41 Constitutional: Yes: Calm, Thin Eyes: Yes: WNL HENT: Yes: WNL Neck: Yes: WNL Cardiovascular: Yes: Regular Rate and Rhythm, S1, S2 Respiratory: Yes: Diminished Gastrointestinal: Yes: Normal Bowel Sounds, Soft Extremities: Yes: WNL Edema: No Labs: CBC, BMP 10/13/17 07:30 10/13/17 07:30 INR, PTT INR 1.27 (0.82-1.09) H 10/11/17 00:30 - ....Imaging Chest X-ray: Report Reviewed, Image Reviewed Assessment/Plan Problem List - Problems (1) Pleural effusion Code(s): J90 - PLEURAL EFFUSION, NOT ELSEWHERE CLASSIFIED (2) Acute systolic congestive heart failure due to valvular disease Code(s): I50.21 - ACUTE SYSTOLIC (CONGESTIVE) HEART FAILURE; I38 - ENDOCARDITIS , VALVE UNSPECIFIED (3) At high risk for pulmonary embolism Code(s): Z91.89 - [facility] PERSONAL RISK FACTORS, NOT ELSEWHERE CLASSIFIED (4) CKD (chronic kidney disease) stage 3, GFR 30-59 ml/min Code(s): N18.3 - CHRONIC KIDNEY DISEASE, STAGE 3 (MODERATE) (5) Elevated troponin Code(s): R74.8 - ABNORMAL LEVELS OF OTHER SERUM ENZYMES (6) Shortness of breath Code(s): R06.02 - SHORTNESS OF BREATH (7) CHF (congestive heart failure) Code(s): I50.9 - HEART FAILURE, UNSPECIFIED Qualifiers: Congestive heart failure type: unspecified congestive heart failure type Congestive heart failure chronicity: unspecified congestive heart failure chronicity Qualified Code(s): I50.9 - Heart failure, unspecified (8) HTN (hypertension) Code(s): I10 - ESSENTIAL (PRIMARY) HYPERTENSION Assessment/Plan diuresis O2 as needed Daily weight heparin DR DICKINSON
[2017-10-13] MEDS: VALSARTAN 40 MG TABLET (FP) PO SCH (10:27)
[2017-10-13] MEDS: hydrALAZINE HCL 10 MG TABLET PO SCH (10:27)
[2017-10-13] MEDS ORDERED: HEPARIN NA (PORCINE) 5,000 UNITS/ML 1ML VIAL SQ SCH (14:00)
[2017-10-13 14:03] VITALS: BP 144/59; PULSE 91; TEMP 97.7
--- NOTE | 2017-10-13 14:28 | DS ---
Physical Exam: SUBJECTIVE: Patient seen and examined, reports feeling short of breath, denies any chest pain. OBJECTIVE: Patient is a 72 y/o male with a past medical history of chronic valvular congestive heart failure, CKD stage 3, hypertension, DVT, BPH, and CVA /TIA. Patient was recently admitted to this hospital on 08/29/[address] [facility] for emergent cardiac cath, on 09/12/17. Patient reports a one week admission at [facility]. He reports declining cardiac cath at [facility] because he feared the risk of dying from complications. Patient reports feeling well after discharge, however , yesterday he reports increased dypsnea upon exertion and shortness of breath. ER course was notable for: (1) chest xray progressive bibasilar changes, cardiomyopathy (2) BNP >175k (3) troponin 0.08 Vital Signs Period Temp Pulse Resp BP Sys/Martinez Pulse Ox Last 24 Hr 97.7 F-98.2 F 91-109 18-20 144-156/59-75 94-97 PHYSICAL EXAM GENERAL: The patient is awake, alert, and fully oriented, in no acute distress. HEAD: Normal with no signs of trauma. EYES: PERRL, extraocular movements intact, sclera anicteric, conjunctiva clear. No ptosis. ENT: Ears normal, nares patent, oropharynx clear without exudates, moist mucous membranes. NECK: Trachea midline, full range of motion, supple, +jvd LUNGS: Breath sounds equal, clear to auscultation bilaterally to apexes, rales to right lower lobe moderately diminished, crackles to left base, no wheezes, no accessory muscle use. HEART: Regular rate and rhythm, S1, S2, 4/6 systolic murmur, rub or gallop. ABDOMEN: Soft, nontender, nondistended, normoactive bowel sounds, no guarding, no rebound, no hepatosplenomegaly, no masses. EXTREMITIES: 2+ pulses, warm, well-perfused, no edema. NEUROLOGICAL: Cranial nerves II through XII grossly intact. Normal speech, gait not observed. PSYCH: Normal mood, normal affect. SKIN: Warm, dry, normal turgor, no rashes or lesions noted LABS Laboratory Results - last 24 hr 10/13/17 10/13/17 10/13/17 07:30 07:30 07:30 WBC 8.7 RBC 3.64 L Hgb 9.8 L Hct 30.8 L MCV 84.8 MCH 26.8 MCHC 31.6 L RDW 19.7 H Plt Count 302 MPV 9.3 Neutrophils % 81.5 Lymphocytes % 9.3 Monocytes % 7.3 Eosinophils % 1.2 Basophils % 0.7 PTT (Actin FS) 67.1 H Sodium 138 Potassium 4.3 Chloride 108 H Carbon Dioxide 20 L Anion Gap 10 BUN 43 H Creatinine 1.9 H Random Glucose 105 Calcium 8.5 Phosphorus 4.2 Magnesium 2.0 IMAGING CXR (10/11/17) Progressive bibasilar changes CXR (10/12/17) no significant change CXR (10/13/17) bilateral pleural effusion echo: 09/09 severe global hypokinesis of the left ventricle, severe TR, MR HOSPITAL COURSE: 1) acute systolic congestive heart failure due to valvular disease - chest xray reviewed today, lasix 40mg IV x 1 ordered, 1.8kg weight loss noted - continue i/o and daily weight - continue isordil - discussed with Dr Resendiz, patient is a poor candidate for open heart valve replacement, however, candidate for AI TAVR, Dr Resendiz contacted Dr Jens Swenson , [facility] for transfer, patient is accepted by Dr Swenson hypertension - blood pressure at goal continue hydralizine and valsartan elevated troponin - troponin 0.06 down trended and stable - no events on telemetry 2) nephrology ckd - creatine 1.9 baseline 1.5, improving, strict monitoring - repeat bmp in AM 3) pulmonary acute respiratory distress - pt on heparin gtt, discussed with vascular surgeon, Dr Parker, cardiology, Dr Resendiz, pulmonary Dr Ray, low clinical suspicion for PE, agree with d/c of heparin gtt. - repeat cxr unchanged, appreciate pulmonary input in regards thorancentesis. - pulmonary consulted and following 4) F/E/N severe malnutrition in the setting of chronic illness -BMI 17 and 17% weight loss in 4-5 weekss -started on magic [employer] PLAN - lengthy conversation with patient, agrees with plan, all questions answered, patient verbalizes understanding. -discharge to [facility] to Dr Swenson's service (accepting physician) Date of Admission:10/11/17 Date of Discharge: 10/13/17 Minutes to complete discharge: 45 Discharge Summary Reason For Visit: SOB, AT HIGH RISK FOR PULMONARY EMBOLISM Current Active Problems Acute systolic congestive heart failure due to valvular disease (Acute) At high risk for pulmonary embolism (Acute) CKD (chronic kidney disease) stage 3, GFR 30-59 ml/min (Acute) Elevated troponin (Acute) Pleural effusion (Acute) Respiratory distress, acute (Acute) Shortness of breath (Acute) Condition: Stable - Instructions Referrals: Luna Resendiz MD [Primary Care Provider] - Disposition: TRANSFER ACUTE CARE/OTHER HOSP - Home Medications Comprehensive Discharge Medication List: Ambulatory Orders Atorvastatin Ca [Lipitor] 20 mg PO HS 10/11/17 Hydralazine HCl 10 mg PO DAILY 10/11/17 Isosorbide Dinitrate [Isordil -] 20 mg PO TID 10/11/17 Valsartan 40 mg PO DAILY 10/11/17 Problem List - Problems (1) CKD (chronic kidney disease) stage 3, GFR 30-59 ml/min Code(s): N18.3 - CHRONIC KIDNEY DISEASE, STAGE 3 (MODERATE) (2) Acute systolic congestive heart failure due to valvular disease Code(s): I50.21 - ACUTE SYSTOLIC (CONGESTIVE) HEART FAILURE; I38 - ENDOCARDITIS , VALVE UNSPECIFIED (3) Respiratory distress, acute Code(s): R06.03 - ACUTE RESPIRATORY DISTRESS (4) Elevated troponin Code(s): R74.8 - ABNORMAL LEVELS OF OTHER SERUM ENZYMES (5) HTN (hypertension) Code(s): I10 - ESSENTIAL (PRIMARY) HYPERTENSION This patient is new to me today: No Emergency Visit: Yes ED Registration Date: 10/11/17 Care time: The patient presented to the Emergency Department on the above date and was hospitalized for further evaluation of their emergent condition. Critical Care patient: Yes Total Critical Care Time (in minutes): 45 Critical Care Statement: The care of this patient involved high complexity decision making to prevent further life threatening deterioration of the patient 's condition and/or to evaluate & treat vital organ system(s) failure or risk of failure. - Discharge Referral Referred to [facility] Med [facility].: No
[2017-10-13] MEDS: ALBUTEROL SO4 2.5/IPRATROPIUM 0.5 INH SOL 3 ML VIAL.NEB. NEB PRN (17:36)
== END 2017-10-13 20:40 | disposition short-term general hospital (02) | DRG 291 ==
LOC: FER 00:26 → FM/S 02:52
PROVIDERS: ADMIT Internal Medicine; ATTEND Nurse Practitioner Family
DX: I13.0 Hypertensive heart and chronic kidney disease with heart failure and stage 1 through stage 4 chronic kidney disease, or unspecified chronic kidney disease (principal); I50.21 Acute systolic (congestive) heart failure; E43 Unspecified severe protein-calorie malnutrition; Z68.1 Body mass index [BMI] 19.9 or less, adult; I47.1 Supraventricular tachycardia; I24.8 Other forms of acute ischemic heart disease; N18.3 Chronic kidney disease, stage 3 (moderate); R74.8 Abnormal levels of other serum enzymes; I42.8 Other cardiomyopathies; M54.5 Low back pain; N40.0 Benign prostatic hyperplasia without lower urinary tract symptoms; I27.20 Pulmonary hypertension, unspecified; I08.1 Rheumatic disorders of both mitral and tricuspid valves; Z86.718 Personal history of other venous thrombosis and embolism; Z86.73 Personal history of transient ischemic attack (TIA), and cerebral infarction without residual deficits
CPT/HCPCS: 36415; 36600; 71010-TC; 80048; 80053; 82375; 82550; 82803; 83050; 83735; 83880; 84100; 84484; 85025; 85379; 85610; 85730; 93005; 93970-TC; 94010; 94640; 97116-GP; 97162-GP; 99283-25; J1644

== ENCOUNTER 2020-07-09 13:30 | Emergency (ER) | payer BC, OTHER ==
[2020-07-09] MEDS ORDERED: NITROGLYCERIN SUBLINGUAL 1/150 0.4 MG TAB SL ONE ×3 (13:35→15:29)
[2020-07-09] MEDS ORDERED: ASPIRIN 325 MG TABLET PO ONE (13:35)
[2020-07-09 13:37] VITALS: BMI 18.5
[2020-07-09] MEDS ORDERED: NITROGLYCERIN SUBLINGUAL 1/150 0.4 MG TAB ONE (13:38)
[2020-07-09] MEDS ORDERED: ASPIRIN 81 MG CHEWABLE TABLETS ONE (13:38)
[2020-07-09] MEDS ORDERED: NITROGLYCERIN 2% OINTMENT - 1GM PACKET TD ONE ×2 (14:03→15:30)
[2020-07-09 14:07] LABS: BASO % 0.6 % (0-2.0); EOS % 0.6 % (0-4.5); HEMATOCRIT 47.4 % (35.4-49); LYMPH % 10.3 % (8-40); MCH 31.3 pg (25.7-33.7); MCHC 33.8 g/dl (32.0-35.9); MEAN CELL VOLUME 92.5 fl (80-96); MONO % 7.1 % (3.8-10.2); NEUT % 81.4 % (42.8-82.8); PLATELET COUNT 204 K/MM3 (134-434); RBC 5.12 M/mm3 (4.00-5.60); RDW 13.2 % (11.9-15.9); WHITE BLOOD COUNT 7.2 K/mm3 (4.0-10.8)
[2020-07-09 14:16] VITALS: BP 177/116; PULSE 96; TEMP 99.8
[2020-07-09 14:16] LABS: ALBUMIN 4.5 g/dl (3.4-5.0); BILIRUBIN,TOTAL 1.2 mg/dl (0.2-1); CALCIUM 9.6 mg/dl (8.5-10); CREATININE 1.6 mg/dl (0.55-1.3); POTASSIUM 4.4 mmol/L (3.5-5.1); TOT PROT 7.1 g/dl (6.4-8.2)
[2020-07-09] MEDS ORDERED: NITROGLYCERIN 50MG/D5W 250ML 50 MG/250 ML ML IVPB ONE (14:27)
[2020-07-09] MEDS ORDERED: LABETALOL HCL 5 MG/1 ML (100MG/20 ML VIAL) ONE (14:27)
--- NOTE | 2020-07-09 14:31 | PDOC ---
Attending Attestation - Resident Resident Name: Regis Fernandez - ED Attending Attestation I have performed the following: I have examined & evaluated the patient, The case was reviewed & discussed with the resident, I agree w/resident's findings & plan, Exceptions are as noted - HPI HPI: 07/09/20 14:12 72 y/o male with a past medical history of chronic valvular CHF, HTN prior valve replacemet CAD, CKD prior DVT, BPH, and prior CVA/TIA here with c/o sob. pt states he has not taken his meds for several months because has been unable to see his pcp due to transportation issues. denies cough or fever, no orthopnea, does feel worsening exertional sob. no n/v chest pain described as a chest pressure. no radiation. no associated numbness or tingilng. no leg swelling recently. pt unsure of meds he is supposed to be taking. 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 - Physicial Exam PE: 07/09/20 14:31 awake alert pt with increased work of breathing with accesory muscle use. lungs decreased breath sounds right base. no crackles. no wheezing. abd soft nt nd ext wwp. no appreciated edema. no calf tenderness. 2+ dp/ pt pulses bilat. - Medical Decision Making 07/09/20 14:32 75 yo male h/o CHF htn valve replacement ckd prior dvt here with extreme hypertension, sob and chest pain. differential htn emergency angina, chf exacerbation. dissection considered however less likely based on pt description of pain. plan immediate bp meds given, for angina, and htn emergency. given SL NTG x 2, nitro past. bp improved and pt ekg improved, sxs of chest pain resolved. nitro drip initiated. asa 324 given. focused ED us lungs performed, a line predominant. no plueral effusio noted. no b lines. focused TTE performed, pt with severely reduced contractility, no rv dilation or strain pattern, no pericardial effusion. initial EKG with ST depression v5, v6, resolving with bp control on repeat ekg. LVH, left axis. 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 evolving EKG dynamic changes, and severe cardiomyopathy. called [facility] to transfer to CCU for severe htn emergency angina with dynamic EKG and no beds in CCU. will contact [facility]. pt bp improved following labetalol 10 mg ivp and nitro gtt. Discharge - Discharge Information Problems reviewed: Yes Clinical Impression/Diagnosis: Chest pain Condition: Guarded Disposition: TRANSFER ACUTE CARE/OTHER HOSP - Follow up/Referral - Patient Discharge Instructions - Post Discharge Activity
[2020-07-09] MEDS ORDERED: METOPROLOL TARTRATE 5 MG/5 ML VIAL ONE (14:42)
[2020-07-09] MEDS ORDERED: METOPROLOL TARTRATE 5 MG/5 ML VIAL IVPUSH ONE (14:42)
--- NOTE | 2020-07-09 14:42 | PDOC ---
History of Present Illness - General Chief Complaint: Respiratory Stated Complaint: SOB, chest pain Time Seen by Provider: 07/09/20 13:34 Past History - Medical History Allergies/Adverse Reactions: Allergies Allergy/AdvReac Type Severity Reaction Status Date / Time No Known Allergies Allergy Verified 10/11/17 01:20 Home Medications: Ambulatory Orders Atorvastatin Ca [Lipitor] 20 mg PO HS 10/11/17 Hydralazine HCl 10 mg PO DAILY 10/11/17 Isosorbide Dinitrate [Isordil] 20 mg PO TID 10/11/17 Valsartan 40 mg PO DAILY 10/11/17 Albuterol 2.5/Ipratropium 0.5 [Duoneb -] 1 amp NEB Q6H PRN amp 10/13/17 Anemia: No Asthma: No Cancer: No Cardiac Disorders: No CVA: No COPD: No CHF: Yes DVT: Yes Dementia: No Diabetes: No GI Disorders: Yes (BPH) Disorders: No HTN: Yes Hypercholesterolemia: No Liver Disease: No Seizures: No Thyroid Disease: No - Surgical History Abdominal Surgery: No Appendectomy: No Cardiac Surgery: No Cholecystectomy: No Lung Surgery: No Neurologic Surgery: No Orthopedic Surgery: No - Immunization History Immunization Up to Date: Yes - Psycho-Social/Smoking History Smoking History: Never smoked Have you smoked in the past 12 months: No Number of Cigarettes Smoked Daily: 0 Information on smoking cessation initiated: No - Substance Abuse Hx (Audit-C & DAST Scrn) How often the patient has a drink containing alcohol: Never Score: In Men: 4 or > Positive; In Women: 3 or > Positive: 0 Screen Result (Pos requires Nsg. Audit-10AR): Negative In the last yr the pt used illegal drug/Rx for NonMed reason: No Score: Yes response is considered Positive: 0 Screen Result (Positive result requires Nsg. DAST-10): Negative *Physical Exam - Vital Signs Last Vital Signs Temp Pulse Resp BP Pulse Ox 99.8 F H 96 H 20 177/116 H 100 07/09/20 14:15 07/09/20 14:15 07/09/20 14:15 07/09/20 14:15 07/09/20 14:15 ED Treatment Course - LABORATORY CBC & Chemistry Diagram: 07/09/20 13:35 07/09/20 13:35 - ADDITIONAL ORDERS Additional order review: Laboratory Results 07/09/20 07/09/20 07/09/20 13:35 13:35 13:35 WBC RBC Hgb Hct MCV MCH MCHC RDW Plt Count MPV Absolute Neuts (auto) Neutrophils % Lymphocytes % Monocytes % Eosinophils % Basophils % Sodium 133 L Potassium 4.4 Chloride 105 Carbon Dioxide 19 L Anion Gap 9 BUN 29.0 H Creatinine 1.6 H Est GFR (CKD-EPI)AfAm 48.81 Est GFR (CKD-EPI)NonAf 42.11 Random Glucose 94 Calcium 9.6 Total Bilirubin 1.2 H AST 29 ALT 16 Alkaline Phosphatase 83 Creatine Kinase 117 Troponin I 0.08 H Total Protein 7.1 Albumin 4.5 07/09/20 13:35 WBC 7.2 RBC 5.12 Hgb 16.0 Hct 47.4 D MCV 92.5 MCH 31.3 D MCHC 33.8 RDW 13.2 D Plt Count 204 D MPV 8.0 D Absolute Neuts (auto) 6.0 Neutrophils % 81.4 Lymphocytes % 10.3 Monocytes % 7.1 Eosinophils % 0.6 Basophils % 0.6 Sodium Potassium Chloride Carbon Dioxide Anion Gap BUN Creatinine Est GFR (CKD-EPI)AfAm Est GFR (CKD-EPI)NonAf Random Glucose Calcium Total Bilirubin AST ALT Alkaline Phosphatase Creatine Kinase Troponin I Total Protein Albumin 07/09/20 13:35 RBC 5.12 MCV 92.5 MCHC 33.8 RDW 13.2 D MPV 8.0 D Neutrophils % 81.4 Lymphocytes % 10.3 Monocytes % 7.1 Eosinophils % 0.6 Basophils % 0.6 - RADIOLOGY Radiology Studies Ordered: Category Date Time Status CHEST X-RAY PORTABLE* [RAD] Stat Radiology 07/09/20 13:38 Taken - Medications Given in the ED: ED Medications Discontinued Medications Generic Name Dose Route Start Last Admin Trade Name Freq PRN Reason Stop Dose Admin Aspirin 325 mg 07/09/20 13:35 07/09/20 13:40 Asa - PO 07/09/20 13:36 325 mg ONCE ONE Administration Nitroglycerin 0.4 mg 07/09/20 13:35 07/09/20 13:40 Nitrostat - SL 07/09/20 13:36 0.4 mg ONCE ONE Administration Medical Decision Making - Medical Decision Making 07/09/20 14:30 Rose Marie [facility] [id number] Discussed case with Dr. Jefferson in Cardiology, States 2.5 mg Metop push, 25 mg metop PO, Nitro drip titrate to BP 160 systolic 07/09/20 15:10 auto accepted to [facility] ED by Dr. Lord Transfer center is setting up transfer Critical Care team 07/09/20 15:47 Dr. Barcenas Cardiac fellow at [facility] accepting on behalf of Dr. Lord Discharge - Discharge Information Problems reviewed: Yes Clinical Impression/Diagnosis: Chest pain Condition: Guarded Disposition: TRANSFER ACUTE CARE/OTHER HOSP - Follow up/Referral - Patient Discharge Instructions - Post Discharge Activity
[2020-07-09] MEDS ORDERED: NITROGLYCERIN 25MG/D5W 250ML 25 MG/250 ML ML IVPB SCH (14:45)
[2020-07-09] MEDS ORDERED: LABETALOL HCL 5 MG/1 ML (100MG/20 ML VIAL) IVPUSH ONE (15:28)
[2020-07-09 15:30] LABS: INR 0.99 (0.83-1.09); PROTHROMBIN TIME (PATIENT) 11.7 SEC (9.7-13.0)
[2020-07-09 15:33] LABS: ACTIVATED PTT 33.6 SECONDS (25.2-36.5)
--- NOTE | 2020-07-10 09:54 | EKG ---
Test Reason : Blood Pressure : / mmHG Vent. 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
== END 2020-07-09 16:00 | disposition short-term general hospital (02) ==
LOC: FER 13:30
PROC: 3E033NZ Introduction of Analgesics, Hypnotics, Sedatives into Peripheral Vein, Percutaneous Approach (ICD-10-PCS; principal; 2020-07-09)
PROC: 3E033GC Introduction of Other Therapeutic Substance into Peripheral Vein, Percutaneous Approach (ICD-10-PCS; 2020-07-09)
DX: R07.9 Chest pain, unspecified (principal)
CPT/HCPCS: 36415; 71045-TC-FY; 76604; 80053; 82550; 84484; 85025; 85610; 85730; 93005; 93308; 99285-25

== ENCOUNTER 2020-10-04 22:10 | Inpatient (IN) | payer BC, OTHER ==
[2020-10-04 22:44] LABS: BASO % 1.1 % (0-2.0); EOS % 0.1 % (0-4.5); HEMATOCRIT 53.4 % (35.4-49); HEMOGLOBIN 17.5 GM/dl (11.7-16.9); LYMPH % 3.5 % (8-40); MCH 30.4 pg (25.7-33.7); MCHC 32.8 g/dl (32.0-35.9); MEAN CELL VOLUME 92.9 fl (80-96); MEAN PLT VOLUME 8.3 fl (7.5-11.1); MONO % 2.2 % (3.8-10.2); NEUT % 93.1 % (42.8-82.8); PLATELET COUNT 157 K/MM3 (134-434); RBC 5.75 M/mm3 (4.00-5.60); RDW 13.3 % (11.9-15.9); WHITE BLOOD COUNT 12.8 K/mm3 (4.0-10.8)
[2020-10-04 22:54] LABS: ALBUMIN 4.3 g/dl (3.4-5.0); BILIRUBIN,TOTAL 1.5 mg/dl (0.2-1); CALCIUM 9.5 mg/dl (8.5-10); CREATININE 2.3 mg/dl (0.55-1.3); TOT PROT 7.2 g/dl (6.4-8.2)
[2020-10-05] MEDS ORDERED: LACTATED RINGERS SOLUTION 1,000 ML/1,000 ML INFUS.BAG IV SCH (01:00)
[2020-10-05] MEDS ORDERED: ISOSORBIDE DINITRATE 20 MG TABLET PO ONE (05:10)
[2020-10-05 06:47] LABS: MAGNESIUM 2.2 mg/dL (1.8-2.4)
[2020-10-05] MEDS: ISOSORBIDE DINITRATE 20 MG TABLET PO SCH (23:31)
[2020-10-06] MEDS ORDERED: LABETALOL HCL 5 MG/1 ML (100MG/20 ML VIAL) IVPUSH ONE (05:05)
[2020-10-06 07:37] LABS: INR 1.12 (0.83-1.09); PROTHROMBIN TIME (PATIENT) 13.7 SEC (9.7-13.0)
[2020-10-06 07:38] LABS: ACTIVATED PTT 28.5 SECONDS (25.2-36.5)
[2020-10-06 07:56] LABS: ALBUMIN 3.1 g/dl (3.4-5.0); BLOOD UREA NITROGEN 41.2 mg/dL (7-18); CALCIUM 8.7 mg/dL (8.5-10.1)
[2020-10-06 07:58] LABS: EOS % 0.2 % (0-4.5); HEMATOCRIT 38.4 % (35.4-49); LYMPH % 6.1 % (8-40); MCH 30.2 pg (25.7-33.7); MCHC 33.8 g/dl (32.0-35.9); MEAN CELL VOLUME 89.4 fl (80-96); MEAN PLT VOLUME 8.4 fl (7.5-11.1); MONO % 10.7 % (3.8-10.2); NEUT % 82.4 % (42.8-82.8); PLATELET COUNT 99 K/MM3 (134-434); RBC 4.29 M/mm3 (4.00-5.60); RDW 13.7 % (11.9-15.9); WHITE BLOOD COUNT 5.8 K/mm3 (4.0-10.0)
[2020-10-06 07:59] LABS: BASO % 0.6 % (0-2.0); CREATININE 1.6 mg/dL (0.55-1.3)
[2020-10-06 08:02] LABS: BILIRUBIN,TOTAL 1.3 mg/dL (0.2-1); TOT PROT 5.4 g/dl (6.4-8.2)
[2020-10-06] MEDS: ISOSORBIDE DINITRATE 20 MG TABLET PO SCH ×2 (08:45→12:39)
[2020-10-06] MEDS ORDERED: hydrALAZINE HCL 10 MG TABLET PO SCH (10:00)
[2020-10-06] MEDS ORDERED: VALSARTAN 40 MG TABLET PO SCH (10:00)
[2020-10-06] MEDS ORDERED: BENZOIN/ALOE VERA/STORAX/TOLU 58 ML BOTTLE ONE (10:36)
[2020-10-06] MEDS ORDERED: PT OWN MED DRAWER 7, Y5N ONE (12:38)
[2020-10-06] MEDS: ACETAMINOPHEN 325 MG TABLET (FP) PO PRN (12:39)
[2020-10-06] MEDS ORDERED: ATORVASTATIN CA 20 MG TABLET (FP) PO SCH (22:00)
[2020-10-06] MEDS: CARVEDILOL 12.5 MG TABLET (FP) PO SCH (22:34)
[2020-10-06] MEDS: ATORVASTATIN CA 80 MG TABLET (FP) PO SCH (22:34)
[2020-10-07] MEDS ORDERED: ACETAMINOPHEN 325 MG TABLET (FP) PO ONE (03:58)
[2020-10-07] MEDS: ACETAMINOPHEN 325 MG TABLET (FP) PO PRN ×2 (04:08→10:26)
[2020-10-07] MEDS: ENOXAPARIN NA (PORCINE) 60 MG/0.6 ML DISP.SYRIN SQ SCH (06:41)
[2020-10-07 08:21] LABS: BASO % 0.8 % (0-2.0); EOS % 0.5 % (0-4.5); HEMATOCRIT 39.6 % (35.4-49); HEMOGLOBIN 13.3 GM/dL (11.7-16.9); MCH 30.3 pg (25.7-33.7); MCHC 33.7 g/dl (32.0-35.9); MEAN CELL VOLUME 89.8 fl (80-96); MEAN PLT VOLUME 8.7 fl (7.5-11.1); MONO % 14.1 % (3.8-10.2); NEUT % 69.6 % (42.8-82.8); PLATELET COUNT 90 K/MM3 (134-434); RBC 4.41 M/mm3 (4.00-5.60); RDW 13.7 % (11.9-15.9); WHITE BLOOD COUNT 3.2 K/mm3 (4.0-10.0)
[2020-10-07 08:28] LABS: ALBUMIN 2.9 g/dl (3.4-5.0); CALCIUM 8.3 mg/dL (8.5-10.1)
[2020-10-07 08:29] LABS: BLOOD UREA NITROGEN 35.5 mg/dL (7-18); MAGNESIUM 2.1 mg/dL (1.8-2.4)
[2020-10-07 08:32] LABS: BILIRUBIN,TOTAL 0.8 mg/dL (0.2-1); CREATININE 1.5 mg/dL (0.55-1.3); PHOSPHOROUS 2.2 mg/dL (2.5-4.9)
[2020-10-07 08:33] LABS: TOT PROT 5.3 g/dl (6.4-8.2)
[2020-10-07] MEDS ORDERED: NAPH,MB-DB/K PH,MBDB POWDER PACKET PO ONE (09:00)
[2020-10-07] MEDS ORDERED: APIXABAN 5 MG TABLET PO SCH (10:00)
[2020-10-07] MEDS: ASPIRIN COATED 81 MG TABLET.EC PO SCH (10:26)
[2020-10-07] MEDS: LISINOPRIL 20 MG TABLET PO SCH (10:26)
[2020-10-07] MEDS: CARVEDILOL 12.5 MG TABLET (FP) PO SCH ×2 (10:27→21:15)
[2020-10-07] MEDS ORDERED: VALSARTAN 40 MG TABLET PO SCH (12:04)
[2020-10-07 13:45] LABS: ARTERIAL BLD GAS O2 SATURATION 97.4 mmHg (95-98); ARTERIAL BLOOD GAS BASE EXCESS -0.7 mmol/L (-2-2); ARTERIAL BLOOD GAS PO2 93.7 mmHg (80-100); ARTERIAL BLOOD GAS pH 7.426 (7.350-7.450)
[2020-10-07] MEDS: ATORVASTATIN CA 80 MG TABLET (FP) PO SCH (21:15)
[2020-10-08] MEDS: ENOXAPARIN NA (PORCINE) 60 MG/0.6 ML DISP.SYRIN SQ SCH (06:51)
[2020-10-08 08:50] LABS: BASO % 0.5 % (0-2.0); EOS % 0.6 % (0-4.5); HEMATOCRIT 43.7 % (35.4-49); HEMOGLOBIN 14.6 GM/dL (11.7-16.9); LYMPH % 12.8 % (8-40); MCH 30.4 pg (25.7-33.7); MCHC 33.5 g/dl (32.0-35.9); MEAN CELL VOLUME 90.7 fl (80-96); MEAN PLT VOLUME 9.3 fl (7.5-11.1); MONO % 9.5 % (3.8-10.2); NEUT % 76.6 % (42.8-82.8); PLATELET COUNT 105 K/MM3 (134-434); RBC 4.81 M/mm3 (4.00-5.60); RDW 13.7 % (11.9-15.9); WHITE BLOOD COUNT 5.1 K/mm3 (4.0-10.0)
[2020-10-08 09:12] LABS: ALBUMIN 2.9 g/dl (3.4-5.0); BLOOD UREA NITROGEN 41.4 mg/dL (7-18); CALCIUM 8.6 mg/dL (8.5-10.1)
[2020-10-08 09:15] LABS: CREATININE 1.5 mg/dL (0.55-1.3)
[2020-10-08 09:16] LABS: PHOSPHOROUS 2.4 mg/dL (2.5-4.9)
[2020-10-08 09:17] LABS: BILIRUBIN,TOTAL 0.8 mg/dL (0.2-1); TOT PROT 5.6 g/dl (6.4-8.2)
[2020-10-08] MEDS ORDERED: NAPH,MB-DB/K PH,MBDB POWDER PACKET PO ONE (09:46)
[2020-10-08] MEDS: CHOLECALCIFEROL (VIT D3) 1,000 UNIT (25 MCG) TABLET PO SCH (11:22)
[2020-10-08] MEDS: CARVEDILOL 12.5 MG TABLET (FP) PO SCH ×2 (11:22→21:21)
[2020-10-08] MEDS: ASCORBIC ACID 500 MG TABLET (FP) PO SCH ×2 (11:22→21:21)
[2020-10-08] MEDS: LISINOPRIL 20 MG TABLET PO SCH (11:22)
[2020-10-08] MEDS: ZINC SULFATE 220 MG CAPSULE (FP) PO SCH (11:22)
[2020-10-08] MEDS: ASPIRIN COATED 81 MG TABLET.EC PO SCH (11:22)
[2020-10-08 20:12] VITALS: BMI 17.4
[2020-10-08] MEDS: ATORVASTATIN CA 80 MG TABLET (FP) PO SCH (21:21)
[2020-10-09] MEDS: ENOXAPARIN NA (PORCINE) 60 MG/0.6 ML DISP.SYRIN SQ SCH (06:11)
[2020-10-09 07:33] LABS: BASO % 0.3 % (0-2.0); EOS % 0.5 % (0-4.5); HEMATOCRIT 43.1 % (35.4-49); HEMOGLOBIN 14.2 GM/dL (11.7-16.9); LYMPH % 10.4 % (8-40); MCH 30.2 pg (25.7-33.7); MEAN CELL VOLUME 91.5 fl (80-96); MEAN PLT VOLUME 9.3 fl (7.5-11.1); MONO % 8.6 % (3.8-10.2); NEUT % 80.2 % (42.8-82.8); PLATELET COUNT 112 K/MM3 (134-434); RBC 4.71 M/mm3 (4.00-5.60); RDW 13.9 % (11.9-15.9); WHITE BLOOD COUNT 7.4 K/mm3 (4.0-10.0)
[2020-10-09 07:45] LABS: ALBUMIN 2.8 g/dl (3.4-5.0); BLOOD UREA NITROGEN 42.6 mg/dL (7-18); CALCIUM 8.8 mg/dL (8.5-10.1)
[2020-10-09 07:48] LABS: CREATININE 1.5 mg/dL (0.55-1.3)
[2020-10-09 07:49] LABS: PHOSPHOROUS 2.7 mg/dL (2.5-4.9)
[2020-10-09 07:50] LABS: BILIRUBIN,TOTAL 0.6 mg/dL (0.2-1); TOT PROT 5.6 g/dl (6.4-8.2)
[2020-10-09] MEDS: CARVEDILOL 12.5 MG TABLET (FP) PO SCH ×2 (09:31→23:49)
[2020-10-09] MEDS: ZINC SULFATE 220 MG CAPSULE (FP) PO SCH (09:31)
[2020-10-09] MEDS: CHOLECALCIFEROL (VIT D3) 1,000 UNIT (25 MCG) TABLET PO SCH (09:31)
[2020-10-09] MEDS: ASCORBIC ACID 500 MG TABLET (FP) PO SCH ×2 (09:31→23:49)
[2020-10-09] MEDS: ASPIRIN COATED 81 MG TABLET.EC PO SCH (09:31)
[2020-10-09] MEDS: LISINOPRIL 20 MG TABLET PO SCH (09:31)
[2020-10-09] MEDS: ATORVASTATIN CA 80 MG TABLET (FP) PO SCH (23:49)
[2020-10-10] MEDS: ENOXAPARIN NA (PORCINE) 60 MG/0.6 ML DISP.SYRIN SQ SCH (07:07)
[2020-10-10 07:31] LABS: BASO % 0.4 % (0-2.0); EOS % 0.4 % (0-4.5); HEMATOCRIT 42.6 % (35.4-49); HEMOGLOBIN 14.3 GM/dL (11.7-16.9); LYMPH % 9.7 % (8-40); MCH 30.4 pg (25.7-33.7); MCHC 33.6 g/dl (32.0-35.9); MEAN CELL VOLUME 90.6 fl (80-96); MEAN PLT VOLUME 9.4 fl (7.5-11.1); MONO % 8.3 % (3.8-10.2); NEUT % 81.2 % (42.8-82.8); PLATELET COUNT 121 K/MM3 (134-434); RDW 13.7 % (11.9-15.9); WHITE BLOOD COUNT 6.3 K/mm3 (4.0-10.0)
[2020-10-10 08:02] LABS: CALCIUM 8.7 mg/dL (8.5-10.1)
[2020-10-10 08:03] LABS: ALBUMIN 2.9 g/dl (3.4-5.0); BLOOD UREA NITROGEN 42.8 mg/dL (7-18); MAGNESIUM 2.3 mg/dL (1.8-2.4)
[2020-10-10 08:06] LABS: CREATININE 1.4 mg/dL (0.55-1.3); PHOSPHOROUS 2.6 mg/dL (2.5-4.9)
[2020-10-10 08:07] LABS: BILIRUBIN,TOTAL 0.7 mg/dL (0.2-1); TOT PROT 5.6 g/dl (6.4-8.2)
[2020-10-10] MEDS: LISINOPRIL 20 MG TABLET PO SCH (10:14)
[2020-10-10] MEDS: ASPIRIN COATED 81 MG TABLET.EC PO SCH (10:14)
[2020-10-10] MEDS: CHOLECALCIFEROL (VIT D3) 1,000 UNIT (25 MCG) TABLET PO SCH (10:14)
[2020-10-10] MEDS: CARVEDILOL 12.5 MG TABLET (FP) PO SCH ×2 (10:14→22:51)
[2020-10-10] MEDS: ZINC SULFATE 220 MG CAPSULE (FP) PO SCH (10:14)
[2020-10-10] MEDS: ASCORBIC ACID 500 MG TABLET (FP) PO SCH ×2 (10:14→22:51)
[2020-10-10] MEDS: ATORVASTATIN CA 80 MG TABLET (FP) PO SCH (22:51)
[2020-10-11] MEDS: ENOXAPARIN NA (PORCINE) 60 MG/0.6 ML DISP.SYRIN SQ SCH (07:14)
[2020-10-11 08:43] LABS: HEMATOCRIT 40.4 % (35.4-49); HEMOGLOBIN 13.6 GM/dL (11.7-16.9); MCH 30.3 pg (25.7-33.7); MCHC 33.6 g/dl (32.0-35.9); MEAN PLT VOLUME 9.6 fl (7.5-11.1); PLATELET COUNT 123 K/MM3 (134-434); RBC 4.49 M/mm3 (4.00-5.60); RDW 13.9 % (11.9-15.9); WHITE BLOOD COUNT 6.5 K/mm3 (4.0-10.0)
[2020-10-11 09:10] LABS: BLOOD UREA NITROGEN 40.2 mg/dL (7-18); CALCIUM 8.4 mg/dL (8.5-10.1)
[2020-10-11 09:11] LABS: ALBUMIN 2.6 g/dl (3.4-5.0)
[2020-10-11 09:13] LABS: CREATININE 1.3 mg/dL (0.55-1.3)
[2020-10-11 09:14] LABS: BILIRUBIN,TOTAL 0.5 mg/dL (0.2-1); PHOSPHOROUS 2.9 mg/dL (2.5-4.9); TOT PROT 5.4 g/dl (6.4-8.2)
[2020-10-11] MEDS: CARVEDILOL 12.5 MG TABLET (FP) PO SCH ×2 (09:33→21:44)
[2020-10-11] MEDS: LISINOPRIL 20 MG TABLET PO SCH (09:33)
[2020-10-11] MEDS: ZINC SULFATE 220 MG CAPSULE (FP) PO SCH (09:33)
[2020-10-11] MEDS: ASPIRIN COATED 81 MG TABLET.EC PO SCH (09:33)
[2020-10-11] MEDS: CHOLECALCIFEROL (VIT D3) 1,000 UNIT (25 MCG) TABLET PO SCH (09:33)
[2020-10-11] MEDS: ASCORBIC ACID 500 MG TABLET (FP) PO SCH ×2 (09:33→21:44)
[2020-10-11] MEDS: ATORVASTATIN CA 80 MG TABLET (FP) PO SCH (21:44)
[2020-10-12] MEDS: ENOXAPARIN NA (PORCINE) 60 MG/0.6 ML DISP.SYRIN SQ SCH (06:21)
[2020-10-12] MEDS: ASCORBIC ACID 500 MG TABLET (FP) PO SCH ×2 (10:09→22:36)
[2020-10-12] MEDS: LISINOPRIL 20 MG TABLET PO SCH (10:09)
[2020-10-12] MEDS: ZINC SULFATE 220 MG CAPSULE (FP) PO SCH (10:09)
[2020-10-12] MEDS: CARVEDILOL 12.5 MG TABLET (FP) PO SCH ×2 (10:09→22:36)
[2020-10-12] MEDS: CHOLECALCIFEROL (VIT D3) 1,000 UNIT (25 MCG) TABLET PO SCH (10:09)
[2020-10-12] MEDS: ASPIRIN COATED 81 MG TABLET.EC PO SCH (10:09)
[2020-10-12 10:21] LABS: BASO % 0.4 % (0-2.0); EOS % 0.3 % (0-4.5); HEMATOCRIT 40.6 % (35.4-49); HEMOGLOBIN 13.2 GM/dL (11.7-16.9); LYMPH % 9.4 % (8-40); MCH 29.9 pg (25.7-33.7); MCHC 32.6 g/dl (32.0-35.9); MEAN CELL VOLUME 91.7 fl (80-96); MEAN PLT VOLUME 9.4 fl (7.5-11.1); MONO % 9.9 % (3.8-10.2); PLATELET COUNT 132 K/MM3 (134-434); RBC 4.43 M/mm3 (4.00-5.60); RDW 13.8 % (11.9-15.9); WHITE BLOOD COUNT 6.2 K/mm3 (4.0-10.0)
[2020-10-12 10:48] LABS: ALBUMIN 2.6 g/dl (3.4-5.0); BILIRUBIN,TOTAL 0.5 mg/dL (0.2-1); BLOOD UREA NITROGEN 39.5 mg/dL (7-18); CALCIUM 8.6 mg/dL (8.5-10.1); CREATININE 1.5 mg/dL (0.55-1.3); MAGNESIUM 2.2 mg/dL (1.8-2.4); TOT PROT 5.3 g/dl (6.4-8.2)
[2020-10-12] MEDS: ACETAMINOPHEN 325 MG TABLET (FP) PO PRN (19:49)
[2020-10-12] MEDS: ATORVASTATIN CA 80 MG TABLET (FP) PO SCH (22:36)
[2020-10-13] MEDS: ENOXAPARIN NA (PORCINE) 60 MG/0.6 ML DISP.SYRIN SQ SCH (06:14)
[2020-10-13 08:23] LABS: ALBUMIN 2.3 g/dl (3.4-5.0)
[2020-10-13 08:24] LABS: BLOOD UREA NITROGEN 41.7 mg/dL (7-18)
[2020-10-13 08:25] LABS: BILIRUBIN,TOTAL 0.5 mg/dL (0.2-1)
[2020-10-13 08:27] LABS: CREATININE 1.3 mg/dL (0.55-1.3); PHOSPHOROUS 2.6 mg/dL (2.5-4.9)
[2020-10-13 08:28] LABS: TOT PROT 5.1 g/dl (6.4-8.2)
[2020-10-13] MEDS: CHOLECALCIFEROL (VIT D3) 1,000 UNIT (25 MCG) TABLET PO SCH (09:40)
[2020-10-13] MEDS: ZINC SULFATE 220 MG CAPSULE (FP) PO SCH (09:41)
[2020-10-13] MEDS: CARVEDILOL 12.5 MG TABLET (FP) PO SCH ×2 (09:41→22:41)
[2020-10-13] MEDS: ASPIRIN COATED 81 MG TABLET.EC PO SCH (09:41)
[2020-10-13] MEDS: LISINOPRIL 20 MG TABLET PO SCH (09:41)
[2020-10-13] MEDS: ASCORBIC ACID 500 MG TABLET (FP) PO SCH ×2 (09:41→22:41)
[2020-10-13] MEDS: ATORVASTATIN CA 80 MG TABLET (FP) PO SCH (22:41)
[2020-10-14] MEDS: ENOXAPARIN NA (PORCINE) 60 MG/0.6 ML DISP.SYRIN SQ SCH (07:00)
[2020-10-14 07:03] LABS: HEMATOCRIT 37.5 % (35.4-49); HEMOGLOBIN 12.4 GM/dL (11.7-16.9); MCH 30.2 pg (25.7-33.7); MCHC 33.2 g/dl (32.0-35.9); MEAN PLT VOLUME 8.9 fl (7.5-11.1); PLATELET COUNT 155 K/MM3 (134-434); RBC 4.12 M/mm3 (4.00-5.60); RDW 13.3 % (11.9-15.9); WHITE BLOOD COUNT 4.5 K/mm3 (4.0-10.0)
[2020-10-14 07:42] LABS: CALCIUM 8.4 mg/dL (8.5-10.1)
[2020-10-14 07:43] LABS: ALBUMIN 2.3 g/dl (3.4-5.0); BLOOD UREA NITROGEN 43.3 mg/dL (7-18)
[2020-10-14 07:46] LABS: BILIRUBIN,TOTAL 0.4 mg/dL (0.2-1); CREATININE 1.3 mg/dL (0.55-1.3)
[2020-10-14] MEDS: CARVEDILOL 12.5 MG TABLET (FP) PO SCH ×2 (09:40→23:24)
[2020-10-14] MEDS: CHOLECALCIFEROL (VIT D3) 1,000 UNIT (25 MCG) TABLET PO SCH (09:40)
[2020-10-14] MEDS: LISINOPRIL 20 MG TABLET PO SCH (09:40)
[2020-10-14] MEDS: ASPIRIN COATED 81 MG TABLET.EC PO SCH (09:40)
[2020-10-14] MEDS: ZINC SULFATE 220 MG CAPSULE (FP) PO SCH (09:40)
[2020-10-14] MEDS: ASCORBIC ACID 500 MG TABLET (FP) PO SCH ×2 (09:40→23:24)
[2020-10-14] MEDS: ATORVASTATIN CA 80 MG TABLET (FP) PO SCH (23:24)
[2020-10-15 07:04] LABS: HEMATOCRIT 39.5 % (35.4-49); HEMOGLOBIN 13.2 GM/dL (11.7-16.9); MCH 30.4 pg (25.7-33.7); MCHC 33.5 g/dl (32.0-35.9); MEAN CELL VOLUME 90.9 fl (80-96); MEAN PLT VOLUME 8.5 fl (7.5-11.1); PLATELET COUNT 179 K/MM3 (134-434); RBC 4.35 M/mm3 (4.00-5.60); RDW 13.3 % (11.9-15.9); WHITE BLOOD COUNT 5.6 K/mm3 (4.0-10.0)
[2020-10-15] MEDS: ENOXAPARIN NA (PORCINE) 60 MG/0.6 ML DISP.SYRIN SQ SCH (07:22)
[2020-10-15 07:28] LABS: ALBUMIN 2.5 g/dl (3.4-5.0); CALCIUM 8.6 mg/dL (8.5-10.1)
[2020-10-15 07:29] LABS: BLOOD UREA NITROGEN 44.6 mg/dL (7-18); MAGNESIUM 2.3 mg/dL (1.8-2.4)
[2020-10-15 07:32] LABS: CREATININE 1.4 mg/dL (0.55-1.3); PHOSPHOROUS 3.2 mg/dL (2.5-4.9)
[2020-10-15 07:33] LABS: TOT PROT 5.4 g/dl (6.4-8.2)
[2020-10-15] MEDS: ASPIRIN COATED 81 MG TABLET.EC PO SCH (09:09)
[2020-10-15] MEDS: CHOLECALCIFEROL (VIT D3) 1,000 UNIT (25 MCG) TABLET PO SCH (09:09)
[2020-10-15] MEDS: LISINOPRIL 20 MG TABLET PO SCH (09:09)
[2020-10-15] MEDS: CARVEDILOL 12.5 MG TABLET (FP) PO SCH ×2 (09:09→21:49)
[2020-10-15] MEDS: ASCORBIC ACID 500 MG TABLET (FP) PO SCH ×2 (09:09→21:50)
[2020-10-15] MEDS: ZINC SULFATE 220 MG CAPSULE (FP) PO SCH (09:09)
[2020-10-15] MEDS ORDERED: SODIUM CHLORIDE 1,000 ML IV SCH (12:00)
[2020-10-15] MEDS: APIXABAN 2.5 MG TABLET PO SCH (21:50)
[2020-10-15] MEDS: ATORVASTATIN CA 80 MG TABLET (FP) PO SCH (21:50)
[2020-10-16 08:10] LABS: HEMATOCRIT 35.2 % (35.4-49); HEMOGLOBIN 11.6 GM/dL (11.7-16.9); MCH 30.3 pg (25.7-33.7); MEAN CELL VOLUME 91.6 fl (80-96); MEAN PLT VOLUME 8.8 fl (7.5-11.1); PLATELET COUNT 174 K/MM3 (134-434); RBC 3.84 M/mm3 (4.00-5.60); RDW 13.8 % (11.9-15.9); WHITE BLOOD COUNT 5.1 K/mm3 (4.0-10.0)
[2020-10-16 08:42] LABS: ALBUMIN 2.2 g/dl (3.4-5.0); BLOOD UREA NITROGEN 40.3 mg/dL (7-18)
[2020-10-16 08:43] LABS: MAGNESIUM 2.2 mg/dL (1.8-2.4)
[2020-10-16 08:45] LABS: BILIRUBIN,TOTAL 1.2 mg/dL (0.2-1); CREATININE 1.2 mg/dL (0.55-1.3); PHOSPHOROUS 2.7 mg/dL (2.5-4.9)
[2020-10-16 08:46] LABS: TOT PROT 4.9 g/dl (6.4-8.2)
[2020-10-16] MEDS ORDERED: ACETAMINOPHEN 325 MG TABLET (FP) PO PRN (10:11)
[2020-10-16] MEDS: CARVEDILOL 12.5 MG TABLET (FP) PO SCH ×2 (10:13→23:12)
[2020-10-16] MEDS: ASPIRIN COATED 81 MG TABLET.EC PO SCH (10:14)
[2020-10-16] MEDS: ASCORBIC ACID 500 MG TABLET (FP) PO SCH ×2 (10:14→23:12)
[2020-10-16] MEDS: ZINC SULFATE 220 MG CAPSULE (FP) PO SCH (10:14)
[2020-10-16] MEDS: CHOLECALCIFEROL (VIT D3) 1,000 UNIT (25 MCG) TABLET PO SCH (10:14)
[2020-10-16] MEDS: LISINOPRIL 20 MG TABLET PO SCH (10:14)
[2020-10-16] MEDS: APIXABAN 2.5 MG TABLET PO SCH ×2 (10:14→23:12)
[2020-10-16] MEDS: ATORVASTATIN CA 80 MG TABLET (FP) PO SCH (23:12)
[2020-10-17 07:38] LABS: ALBUMIN 2.3 g/dl (3.4-5.0); BLOOD UREA NITROGEN 35.1 mg/dL (7-18); CALCIUM 8.2 mg/dL (8.5-10.1); MAGNESIUM 2.2 mg/dL (1.8-2.4)
[2020-10-17 07:39] LABS: BILIRUBIN,TOTAL 0.4 mg/dL (0.2-1); TOT PROT 5.1 g/dl (6.4-8.2)
[2020-10-17 07:41] LABS: PHOSPHOROUS 2.5 mg/dL (2.5-4.9)
[2020-10-17 08:03] LABS: HEMATOCRIT 38.4 % (35.4-49); HEMOGLOBIN 12.9 GM/dL (11.7-16.9); MCH 30.2 pg (25.7-33.7); MCHC 33.6 g/dl (32.0-35.9); MEAN PLT VOLUME 8.9 fl (7.5-11.1); PLATELET COUNT 213 K/MM3 (134-434); RBC 4.26 M/mm3 (4.00-5.60); RDW 13.4 % (11.9-15.9); WHITE BLOOD COUNT 5.3 K/mm3 (4.0-10.0)
[2020-10-17] MEDS: APIXABAN 2.5 MG TABLET PO SCH ×2 (09:32→21:09)
[2020-10-17] MEDS: CARVEDILOL 12.5 MG TABLET (FP) PO SCH ×2 (09:33→21:10)
[2020-10-17] MEDS: ZINC SULFATE 220 MG CAPSULE (FP) PO SCH (09:33)
[2020-10-17] MEDS: LISINOPRIL 20 MG TABLET PO SCH (09:33)
[2020-10-17] MEDS: CHOLECALCIFEROL (VIT D3) 1,000 UNIT (25 MCG) TABLET PO SCH (09:33)
[2020-10-17] MEDS: ASCORBIC ACID 500 MG TABLET (FP) PO SCH ×2 (09:33→21:10)
[2020-10-17] MEDS ORDERED: ASPIRIN COATED 81 MG TABLET.EC PO SCH (10:00)
[2020-10-17] MEDS: ATORVASTATIN CA 80 MG TABLET (FP) PO SCH (21:09)
[2020-10-18] MEDS: LISINOPRIL 20 MG TABLET PO SCH (09:44)
[2020-10-18] MEDS: ZINC SULFATE 220 MG CAPSULE (FP) PO SCH (09:44)
[2020-10-18] MEDS: ASCORBIC ACID 500 MG TABLET (FP) PO SCH ×2 (09:44→21:47)
[2020-10-18] MEDS: CHOLECALCIFEROL (VIT D3) 1,000 UNIT (25 MCG) TABLET PO SCH (09:44)
[2020-10-18] MEDS: APIXABAN 2.5 MG TABLET PO SCH ×2 (09:44→21:47)
[2020-10-18] MEDS: CARVEDILOL 12.5 MG TABLET (FP) PO SCH ×2 (09:45→21:47)
[2020-10-18] MEDS ORDERED: ATORVASTATIN CA 40 MG TABLET (FP) ONE (20:03)
[2020-10-18] MEDS: ATORVASTATIN CA 80 MG TABLET (FP) PO SCH (21:47)
[2020-10-19 10:27] LABS: BASO % 0.7 % (0-2.0); EOS % 1.6 % (0-4.5); HEMATOCRIT 36.6 % (35.4-49); HEMOGLOBIN 12.4 GM/dL (11.7-16.9); LYMPH % 10.8 % (8-40); MCH 30.4 pg (25.7-33.7); MCHC 33.9 g/dl (32.0-35.9); MEAN CELL VOLUME 89.7 fl (80-96); MEAN PLT VOLUME 8.3 fl (7.5-11.1); NEUT % 79.9 % (42.8-82.8); PLATELET COUNT 249 K/MM3 (134-434); RBC 4.07 M/mm3 (4.00-5.60); RDW 13.4 % (11.9-15.9); WHITE BLOOD COUNT 8.3 K/mm3 (4.0-10.0)
[2020-10-19] MEDS: ASCORBIC ACID 500 MG TABLET (FP) PO SCH ×2 (10:31→21:26)
[2020-10-19] MEDS: APIXABAN 2.5 MG TABLET PO SCH ×2 (10:31→21:26)
[2020-10-19] MEDS: CHOLECALCIFEROL (VIT D3) 1,000 UNIT (25 MCG) TABLET PO SCH (10:31)
[2020-10-19] MEDS: LISINOPRIL 20 MG TABLET PO SCH (10:31)
[2020-10-19] MEDS: CARVEDILOL 12.5 MG TABLET (FP) PO SCH ×2 (10:31→21:26)
[2020-10-19] MEDS: ZINC SULFATE 220 MG CAPSULE (FP) PO SCH (10:31)
[2020-10-19 10:50] LABS: ALBUMIN 2.4 g/dl (3.4-5.0); BLOOD UREA NITROGEN 41.8 mg/dL (7-18); CALCIUM 8.6 mg/dL (8.5-10.1)
[2020-10-19 10:53] LABS: CREATININE 1.1 mg/dL (0.55-1.3); PHOSPHOROUS 2.1 mg/dL (2.5-4.9)
[2020-10-19 10:54] LABS: BILIRUBIN,TOTAL 0.4 mg/dL (0.2-1); TOT PROT 5.3 g/dl (6.4-8.2)
[2020-10-19 12:19] LABS: ANISOCYTOSIS 0; MACROCYTOSIS 0; PLATELET ESTIMATE NORMAL
[2020-10-19] MEDS ORDERED: ATORVASTATIN CA 40 MG TABLET (FP) ONE (20:56)
[2020-10-19] MEDS: ATORVASTATIN CA 80 MG TABLET (FP) PO SCH (21:26)
[2020-10-20 08:05] LABS: ALBUMIN 2.4 g/dl (3.4-5.0)
[2020-10-20 08:07] LABS: BILIRUBIN,DIRECT 0.1 mg/dL (0.0-0.2)
[2020-10-20 08:12] LABS: BILIRUBIN,TOTAL 0.2 mg/dL (0.2-1)
[2020-10-20] MEDS: LISINOPRIL 20 MG TABLET PO SCH (09:10)
[2020-10-20] MEDS: ZINC SULFATE 220 MG CAPSULE (FP) PO SCH (09:10)
[2020-10-20] MEDS: APIXABAN 2.5 MG TABLET PO SCH (09:10)
[2020-10-20] MEDS: CARVEDILOL 12.5 MG TABLET (FP) PO SCH (09:10)
[2020-10-20] MEDS: CHOLECALCIFEROL (VIT D3) 1,000 UNIT (25 MCG) TABLET PO SCH (09:10)
[2020-10-20] MEDS: ASCORBIC ACID 500 MG TABLET (FP) PO SCH (09:10)
[2020-10-20 10:33] LABS: MAGNESIUM 2.3 mg/dL (1.8-2.4)
[2020-10-20 11:06] VITALS: BP 118/75
[2020-10-20 14:27] LABS: CALCIUM 8.3 mg/dL (8.5-10.1)
[2020-10-20 14:28] LABS: BLOOD UREA NITROGEN 41.7 mg/dL (7-18)
[2020-10-20 14:31] LABS: CREATININE 1.3 mg/dL (0.55-1.3)
[2020-10-20 15:16] VITALS: PULSE 78; TEMP 98
[2020-10-21] MEDS ORDERED: amLODIPine BESYLATE 5 MG TABLET (FP) PO SCH (10:00)
== END 2020-10-20 18:21 | DRG 177 ==
LOC: FER 22:10 → J4W 10-05 00:54 → J6WEST-2 10-15 10:43
PROVIDERS: ADMIT Internal Medicine; ATTEND Internal Medicine
DX: U07.1 COVID-19 (principal); G93.41 Metabolic encephalopathy; J12.89 Other viral pneumonia; G92 Toxic encephalopathy; I50.22 Chronic systolic (congestive) heart failure; N17.9 Acute kidney failure, unspecified; I13.0 Hypertensive heart and chronic kidney disease with heart failure and stage 1 through stage 4 chronic kidney disease, or unspecified chronic kidney disease; R64 Cachexia; I24.8 Other forms of acute ischemic heart disease; I47.2 Ventricular tachycardia; Z68.1 Body mass index [BMI] 19.9 or less, adult; F03.90 Unspecified dementia, unspecified severity, without behavioral disturbance, psychotic disturbance, mood disturbance, and anxiety; N18.9 Chronic kidney disease, unspecified; R63.0 Anorexia; R74.01 Elevation of levels of liver transaminase levels; E78.5 Hyperlipidemia, unspecified; I34.0 Nonrheumatic mitral (valve) insufficiency; I35.1 Nonrheumatic aortic (valve) insufficiency; E87.5 Hyperkalemia; J44.9 Chronic obstructive pulmonary disease, unspecified; E86.9 Volume depletion, unspecified; N40.0 Benign prostatic hyperplasia without lower urinary tract symptoms
CPT/HCPCS: 36415; 36600; 70450-TC; 71045-TC-FY; 80048; 80053; 80076; 82550; 82565; 82607; 82728; 82803; 83615; 83735; 84100; 84132; 84300; 84443; 84484; 85025; 85027; 85379; 85610; 85730; 86140; 93005; 97116-GP; 97161-GP; 99285-25; C9803; U0003

== ENCOUNTER 2021-07-19 14:31 | Inpatient (IN) | payer BC, OTHER ==
[2021-07-19] MEDS ORDERED: ASPIRIN 81 MG CHEWABLE TABLETS PO ONE (15:59)
[2021-07-19] MEDS ORDERED: ASPIRIN 81 MG CHEWABLE TABLETS ONE (16:15)
[2021-07-19 16:38] LABS: BASO % 0.6 % (0-2.0); EOS % 2.9 % (0-4.5); HEMATOCRIT 43.1 % (35.4-49); HEMOGLOBIN 14.9 GM/dL (11.7-16.9); LYMPH % 13.8 % (8-40); MCH 30.9 pg (25.7-33.7); MCHC 34.6 g/dl (32.0-35.9); MEAN CELL VOLUME 89.4 fl (80-96); MEAN PLT VOLUME 7.6 fl (7.5-11.1); MONO % 11.6 % (3.8-10.2); NEUT % 71.1 % (42.8-82.8); PLATELET COUNT 165 10^3/uL (134-434); RBC 4.82 M/mm3 (4.00-5.60); RDW 14.4 % (11.9-15.9)
[2021-07-19 16:46] LABS: INR 1.13 (0.83-1.09); PROTHROMBIN TIME (PATIENT) 13.9 SEC (9.7-13.0)
[2021-07-19 16:49] LABS: ACTIVATED PTT 37.5 SECONDS (25.2-36.5)
[2021-07-19 16:58] LABS: CALCIUM 9.3 mg/dL (8.5-10.1)
[2021-07-19 16:59] LABS: ALBUMIN 3.8 g/dl (3.4-5.0); MAGNESIUM 2.1 mg/dL (1.8-2.4)
[2021-07-19 17:02] LABS: CREATININE 1.4 mg/dL (0.55-1.3); PHOSPHOROUS 2.5 mg/dL (2.5-4.9)
[2021-07-19 17:03] LABS: BILIRUBIN,TOTAL 0.5 mg/dL (0.2-1)
[2021-07-19 17:04] LABS: TOT PROT 6.9 g/dl (6.4-8.2)
[2021-07-19] MEDS ORDERED: SODIUM CHLORIDE 0.9% 500 ML INFUS.BAG IV ONE (17:33)
[2021-07-19] MEDS ORDERED: APIXABAN 2.5 MG TABLET PO SCH (22:45)
[2021-07-19] MEDS ORDERED: METOPROLOL TARTRATE 50 MG TABLET (FP) PO SCH (22:45)
[2021-07-19] MEDS ORDERED: METOPROLOL TARTRATE 50 MG TABLET (FP) ONE (23:32)
[2021-07-19] MEDS ORDERED: APIXABAN 2.5 MG TABLET ONE (23:32)
[2021-07-19 23:42] LABS: PHOSPHOROUS 2.3 mg/dL (2.5-4.9)
[2021-07-20 07:34] LABS: BASO % 0.7 % (0-2.0); EOS % 2.3 % (0-4.5); HEMATOCRIT 40.6 % (35.4-49); HEMOGLOBIN 14.1 GM/dL (11.7-16.9); LYMPH % 12.3 % (8-40); MCH 30.8 pg (25.7-33.7); MCHC 34.8 g/dl (32.0-35.9); MEAN CELL VOLUME 88.5 fl (80-96); MONO % 12.2 % (3.8-10.2); NEUT % 72.5 % (42.8-82.8); PLATELET COUNT 145 10^3/uL (134-434); RBC 4.59 M/mm3 (4.00-5.60); RDW 14.1 % (11.9-15.9); WHITE BLOOD COUNT 8.3 K/mm3 (4.0-10.0)
[2021-07-20 07:51] LABS: CALCIUM 8.6 mg/dL (8.5-10.1)
[2021-07-20 07:52] LABS: ALBUMIN 3.2 g/dl (3.4-5.0); BLOOD UREA NITROGEN 26.1 mg/dL (7-18); MAGNESIUM 2.1 mg/dL (1.8-2.4)
[2021-07-20 07:54] LABS: BILIRUBIN,TOTAL 0.5 mg/dL (0.2-1)
[2021-07-20 07:55] LABS: CREATININE 1.3 mg/dL (0.55-1.3); PHOSPHOROUS 2.5 mg/dL (2.5-4.9)
[2021-07-20] MEDS ORDERED: amLODIPine BESYLATE 5 MG TABLET (FP) PO SCH (10:00)
[2021-07-20] MEDS ORDERED: amLODIPine BESYLATE 5 MG TABLET (FP) ONE (10:40)
[2021-07-20] MEDS ORDERED: ASPIRIN 81 MG CHEWABLE TABLETS ONE (10:40)
[2021-07-20] MEDS ORDERED: CARVEDILOL 12.5 MG TABLET (FP) ONE ×2 (10:40→22:18)
[2021-07-20] MEDS: CARVEDILOL 12.5 MG TABLET (FP) PO SCH ×2 (13:34→23:12)
[2021-07-20] MEDS: ASPIRIN 81 MG CHEWABLE TABLETS PO SCH (13:34)
[2021-07-20] MEDS: HEPARIN NA (PORCINE) 5,000 UNITS/ML 1ML VIAL SQ SCH ×2 (15:35→23:12)
[2021-07-20] MEDS ORDERED: HEPARIN NA (PORCINE) 5,000 UNITS/ML 1ML VIAL ONE ×2 (15:36→22:18)
[2021-07-20] MEDS ORDERED: SACUBITRIL/VALSARTAN 24 MG-26 MG TABLET PO SCH (22:00)
[2021-07-20] MEDS ORDERED: ATORVASTATIN CA 80 MG TABLET (FP) ONE (22:18)
[2021-07-20] MEDS: ATORVASTATIN CA 80 MG TABLET (FP) PO SCH (23:12)
[2021-07-21] MEDS: HEPARIN NA (PORCINE) 5,000 UNITS/ML 1ML VIAL SQ SCH ×4 (06:08→21:13)
[2021-07-21 08:28] LABS: BASO % 0.6 % (0-2.0); EOS % 3.4 % (0-4.5); HEMATOCRIT 41.5 % (35.4-49); HEMOGLOBIN 14.1 GM/dL (11.7-16.9); LYMPH % 12.2 % (8-40); MCH 30.5 pg (25.7-33.7); MEAN CELL VOLUME 89.8 fl (80-96); MEAN PLT VOLUME 8.3 fl (7.5-11.1); MONO % 10.2 % (3.8-10.2); NEUT % 73.6 % (42.8-82.8); PLATELET COUNT 145 10^3/uL (134-434); RBC 4.62 M/mm3 (4.00-5.60); RDW 14.4 % (11.9-15.9); WHITE BLOOD COUNT 8.6 K/mm3 (4.0-10.0)
[2021-07-21 08:51] LABS: ALBUMIN 3.2 g/dl (3.4-5.0); BLOOD UREA NITROGEN 29.7 mg/dL (7-18); CALCIUM 8.6 mg/dL (8.5-10.1); MAGNESIUM 2.2 mg/dL (1.8-2.4)
[2021-07-21 08:54] LABS: CREATININE 1.2 mg/dL (0.55-1.3); PHOSPHOROUS 2.7 mg/dL (2.5-4.9)
[2021-07-21 08:56] LABS: BILIRUBIN,TOTAL 0.6 mg/dL (0.2-1)
[2021-07-21] MEDS: ASPIRIN 81 MG CHEWABLE TABLETS PO SCH (10:36)
[2021-07-21] MEDS: CARVEDILOL 25 MG TABLET (FP) PO SCH ×2 (10:36→21:13)
[2021-07-21] MEDS: SACUBITRIL/VALSARTAN 49 MG-51 MG TABLET PO SCH ×2 (12:16→21:13)
[2021-07-21 15:29] VITALS: BMI 17.6
[2021-07-21] MEDS ORDERED: PT OWN MED DRAWER 7, Y5N ONE (21:11)
[2021-07-21] MEDS: ATORVASTATIN CA 80 MG TABLET (FP) PO SCH (21:13)
[2021-07-22] MEDS: HEPARIN NA (PORCINE) 5,000 UNITS/ML 1ML VIAL SQ SCH ×2 (06:19→13:17)
[2021-07-22 08:00] LABS: ALBUMIN 3.2 g/dl (3.4-5.0); BLOOD UREA NITROGEN 32.1 mg/dL (7-18)
[2021-07-22 08:01] LABS: CALCIUM 8.8 mg/dL (8.5-10.1)
[2021-07-22 08:04] LABS: CREATININE 1.5 mg/dL (0.55-1.3)
[2021-07-22 08:05] LABS: TOT PROT 5.9 g/dl (6.4-8.2)
[2021-07-22] MEDS ORDERED: PT OWN MED DRAWER 7, Y5N ONE (09:20)
[2021-07-22] MEDS: ASPIRIN 81 MG CHEWABLE TABLETS PO SCH (09:22)
[2021-07-22] MEDS: CARVEDILOL 25 MG TABLET (FP) PO SCH (09:22)
[2021-07-22] MEDS: SACUBITRIL/VALSARTAN 49 MG-51 MG TABLET PO SCH (09:22)
[2021-07-22 14:05] VITALS: BP 112/64; PULSE 71; TEMP 98.2
== END 2021-07-22 19:24 | disposition home health service (06) | DRG 291 ==
LOC: JER 14:31 → JERBED 16:31 → J4S 07-21 05:08
PROVIDERS: ADMIT Internal Medicine
DX: I13.0 Hypertensive heart and chronic kidney disease with heart failure and stage 1 through stage 4 chronic kidney disease, or unspecified chronic kidney disease (principal); I50.43 Acute on chronic combined systolic (congestive) and diastolic (congestive) heart failure; K50.90 Crohn's disease, unspecified, without complications; N17.9 Acute kidney failure, unspecified; R07.89 Other chest pain; E78.5 Hyperlipidemia, unspecified; J44.9 Chronic obstructive pulmonary disease, unspecified; F03.90 Unspecified dementia, unspecified severity, without behavioral disturbance, psychotic disturbance, mood disturbance, and anxiety; M54.5 Low back pain; N40.0 Benign prostatic hyperplasia without lower urinary tract symptoms; I25.119 Atherosclerotic heart disease of native coronary artery with unspecified angina pectoris; I08.0 Rheumatic disorders of both mitral and aortic valves; K80.20 Calculus of gallbladder without cholecystitis without obstruction; N18.9 Chronic kidney disease, unspecified; Z86.718 Personal history of other venous thrombosis and embolism
CPT/HCPCS: 36415; 71045-TC-FY; 71275-TC; 80053; 80061; 82306; 82550; 83036; 83735; 83880; 84100; 84443; 84484; 85025; 85610; 85730; 86850; 86900; 86901; 93005; 93010; 93306-TC; 97116-GP; 97161-GP; 99285-25; C9803; J1644; U0003; U0005

== ENCOUNTER 2021-07-24 09:46 | Inpatient (IN) | payer BC, OTHER ==
[2021-07-24 11:39] LABS: BASO % 0.7 % (0-2.0); EOS % 1.8 % (0-4.5); HEMATOCRIT 42.4 % (35.4-49); HEMOGLOBIN 14.6 GM/dL (11.7-16.9); LYMPH % 10.1 % (8-40); MCH 30.9 pg (25.7-33.7); MCHC 34.5 g/dl (32.0-35.9); MEAN CELL VOLUME 89.6 fl (80-96); MEAN PLT VOLUME 8.4 fl (7.5-11.1); MONO % 6.5 % (3.8-10.2); NEUT % 80.9 % (42.8-82.8); PLATELET COUNT 147 10^3/uL (134-434); RBC 4.74 M/mm3 (4.00-5.60); RDW 14.4 % (11.9-15.9); WHITE BLOOD COUNT 8.3 K/mm3 (4.0-10.0)
[2021-07-24 11:50] LABS: CHLORIDE 108 mmol/L (98-107); SODIUM 139 mmol/L (136-145)
[2021-07-24 11:54] LABS: CALCIUM 9.1 mg/dL (8.5-10.1)
[2021-07-24 11:55] LABS: ALBUMIN 3.5 g/dl (3.4-5.0); ANION GAP 8 MMOL/L (8-16); BLOOD UREA NITROGEN 30.2 mg/dL (7-18); CO2 23 mmol/L (21-32); GLUCOSE,RANDOM 90 mg/dL (74-106)
[2021-07-24 11:58] LABS: CREATININE 1.3 mg/dL (0.55-1.3); SGOT/AST 26 U/L (15-37); SGPT/ALT 33 U/L (13-61)
[2021-07-24 12:00] LABS: BILIRUBIN,TOTAL 0.7 mg/dL (0.2-1); TOT PROT 6.5 g/dl (6.4-8.2)
[2021-07-24 12:01] LABS: ALK PHOS 103 U/L (45-117)
[2021-07-25] MEDS: HEPARIN NA (PORCINE) 5,000 UNITS/ML 1ML VIAL SQ SCH ×4 (00:19→22:14)
[2021-07-25] MEDS: ATORVASTATIN CA 80 MG TABLET (FP) PO SCH ×2 (00:19→22:14)
[2021-07-25] MEDS: CARVEDILOL 25 MG TABLET (FP) PO SCH ×3 (00:22→22:14)
[2021-07-25] MEDS: SACUBITRIL/VALSARTAN 49 MG-51 MG TABLET PO SCH ×3 (00:22→22:14)
[2021-07-25] MEDS ORDERED: CARVEDILOL 12.5 MG TABLET (FP) ONE (00:22)
[2021-07-25 03:09] VITALS: BMI 16.9
[2021-07-25 09:25] LABS: HEMATOCRIT 43.7 % (35.4-49); HEMOGLOBIN 14.7 GM/dL (11.7-16.9); MCH 30.5 pg (25.7-33.7); MCHC 33.7 g/dl (32.0-35.9); MEAN CELL VOLUME 90.3 fl (80-96); MEAN PLT VOLUME 8.1 fl (7.5-11.1); PLATELET COUNT 156 10^3/uL (134-434); RBC 4.84 M/mm3 (4.00-5.60); RDW 14.5 % (11.9-15.9); WHITE BLOOD COUNT 12.2 K/mm3 (4.0-10.0)
[2021-07-25] MEDS ORDERED: PT OWN MED DRAWER 7, Y5N ONE ×3 (09:28→22:09)
[2021-07-25] MEDS: CHOLECALCIFEROL (VIT D3) 1,000 UNIT (25 MCG) TABLET PO SCH (09:36)
[2021-07-25] MEDS: ASPIRIN 81 MG CHEWABLE TABLETS PO SCH (09:36)
[2021-07-25] MEDS: ASCORBIC ACID 500 MG TABLET (FP) PO SCH (09:36)
[2021-07-25 09:59] LABS: ALBUMIN 3.5 g/dl (3.4-5.0); BLOOD UREA NITROGEN 31.2 mg/dL (7-18)
[2021-07-25 10:01] LABS: CREATININE 1.7 mg/dL (0.55-1.3)
[2021-07-25 10:02] LABS: BILIRUBIN,TOTAL 0.4 mg/dL (0.2-1); PHOSPHOROUS 2.5 mg/dL (2.5-4.9)
[2021-07-25 10:03] LABS: TOT PROT 6.4 g/dl (6.4-8.2)
[2021-07-26] MEDS: HEPARIN NA (PORCINE) 5,000 UNITS/ML 1ML VIAL SQ SCH ×3 (06:47→21:38)
[2021-07-26] MEDS ORDERED: PT OWN MED DRAWER 7, Y5N ONE ×2 (09:56→21:18)
[2021-07-26] MEDS: ASCORBIC ACID 500 MG TABLET (FP) PO SCH (10:09)
[2021-07-26] MEDS: CHOLECALCIFEROL (VIT D3) 1,000 UNIT (25 MCG) TABLET PO SCH (10:09)
[2021-07-26] MEDS: ASPIRIN 81 MG CHEWABLE TABLETS PO SCH (10:09)
[2021-07-26] MEDS: CARVEDILOL 25 MG TABLET (FP) PO SCH ×2 (10:09→21:38)
[2021-07-26] MEDS: SACUBITRIL/VALSARTAN 49 MG-51 MG TABLET PO SCH ×2 (10:10→21:39)
[2021-07-26 14:04] LABS: PH,URINE 5.5 (5.0-8.0); URINE APPEARANCE CLEAR; URINE BILIRUBIN NEGATIVE (NEGATIVE); URINE COLOR YELLOW; URINE GLUCOSE (UA) NEGATIVE (NEGATIVE); URINE KETONE NEGATIVE (NEGATIVE); URINE LEUK ESTERASE NEGATIVE (NEGATIVE); URINE NITRITE NEGATIVE (NEGATIVE); URINE PROTEIN TRACE (NEGATIVE); URINE UROBILINOGEN 0.2 mg/dL (0.2-1.0)
[2021-07-26] MEDS: SODIUM CHLORIDE 1,000 ML IV SCH (16:04)
[2021-07-26] MEDS: ATORVASTATIN CA 80 MG TABLET (FP) PO SCH (21:38)
[2021-07-27] MEDS: HEPARIN NA (PORCINE) 5,000 UNITS/ML 1ML VIAL SQ SCH ×3 (06:26→22:00)
[2021-07-27] MEDS: SODIUM CHLORIDE 1,000 ML IV SCH (07:45)
[2021-07-27 08:00] LABS: BASO % 0.5 % (0-2.0); EOS % 1.7 % (0-4.5); HEMATOCRIT 37.9 % (35.4-49); HEMOGLOBIN 12.7 GM/dL (11.7-16.9); LYMPH % 7.2 % (8-40); MCH 30.5 pg (25.7-33.7); MCHC 33.4 g/dl (32.0-35.9); MEAN CELL VOLUME 91.3 fl (80-96); MEAN PLT VOLUME 8.9 fl (7.5-11.1); MONO % 7.8 % (3.8-10.2); NEUT % 82.8 % (42.8-82.8); PLATELET COUNT 140 10^3/uL (134-434); RBC 4.15 M/mm3 (4.00-5.60); RDW 14.3 % (11.9-15.9); WHITE BLOOD COUNT 12.6 K/mm3 (4.0-10.0)
[2021-07-27 08:04] LABS: ALBUMIN 2.9 g/dl (3.4-5.0); BLOOD UREA NITROGEN 39.8 mg/dL (7-18); CALCIUM 8.4 mg/dL (8.5-10.1)
[2021-07-27 08:05] LABS: MAGNESIUM 1.9 mg/dL (1.8-2.4)
[2021-07-27 08:06] LABS: URIC ACID 7.1 mg/dL (2.6-7.2)
[2021-07-27 08:07] LABS: CREATININE 1.6 mg/dL (0.55-1.3)
[2021-07-27 08:08] LABS: BILIRUBIN,TOTAL 0.4 mg/dL (0.2-1); TOT PROT 5.4 g/dl (6.4-8.2)
[2021-07-27] MEDS ORDERED: PT OWN MED DRAWER 7, Y5N ONE ×2 (09:57→20:30)
[2021-07-27] MEDS: CHOLECALCIFEROL (VIT D3) 1,000 UNIT (25 MCG) TABLET PO SCH (09:58)
[2021-07-27] MEDS: SACUBITRIL/VALSARTAN 49 MG-51 MG TABLET PO SCH ×2 (09:58→22:00)
[2021-07-27] MEDS: ASCORBIC ACID 500 MG TABLET (FP) PO SCH (09:58)
[2021-07-27] MEDS: ASPIRIN 81 MG CHEWABLE TABLETS PO SCH (09:58)
[2021-07-27] MEDS: CARVEDILOL 25 MG TABLET (FP) PO SCH ×2 (09:58→22:00)
[2021-07-27 11:27] LABS: PHOSPHOROUS 2.7 mg/dL (2.5-4.9)
[2021-07-27] MEDS: ATORVASTATIN CA 80 MG TABLET (FP) PO SCH (22:00)
[2021-07-28] MEDS: HEPARIN NA (PORCINE) 5,000 UNITS/ML 1ML VIAL SQ SCH ×3 (06:27→21:36)
[2021-07-28 08:24] LABS: BASO % 0.6 % (0-2.0); EOS % 3.2 % (0-4.5); HEMATOCRIT 38.4 % (35.4-49); HEMOGLOBIN 13.1 GM/dL (11.7-16.9); LYMPH % 13.6 % (8-40); MCH 30.8 pg (25.7-33.7); MEAN CELL VOLUME 90.7 fl (80-96); MEAN PLT VOLUME 8.7 fl (7.5-11.1); MONO % 9.1 % (3.8-10.2); NEUT % 73.5 % (42.8-82.8); PLATELET COUNT 138 10^3/uL (134-434); RBC 4.24 M/mm3 (4.00-5.60); RDW 14.4 % (11.9-15.9); WHITE BLOOD COUNT 8.5 K/mm3 (4.0-10.0)
[2021-07-28] MEDS: TAMSULOSIN HCL 0.4 MG CAP PO SCH (08:24)
[2021-07-28 08:32] LABS: ALBUMIN 2.9 g/dl (3.4-5.0); BLOOD UREA NITROGEN 23.9 mg/dL (7-18); CALCIUM 8.7 mg/dL (8.5-10.1)
[2021-07-28 08:35] LABS: CREATININE 1.3 mg/dL (0.55-1.3)
[2021-07-28 08:36] LABS: PHOSPHOROUS 2.9 mg/dL (2.5-4.9)
[2021-07-28 08:37] LABS: BILIRUBIN,TOTAL 0.6 mg/dL (0.2-1); TOT PROT 5.5 g/dl (6.4-8.2)
[2021-07-28] MEDS ORDERED: PT OWN MED DRAWER 7, Y5N ONE ×2 (09:57→21:02)
[2021-07-28] MEDS: CHOLECALCIFEROL (VIT D3) 1,000 UNIT (25 MCG) TABLET PO SCH (10:09)
[2021-07-28] MEDS: ASCORBIC ACID 500 MG TABLET (FP) PO SCH (10:09)
[2021-07-28] MEDS: CARVEDILOL 25 MG TABLET (FP) PO SCH ×2 (10:09→21:36)
[2021-07-28] MEDS: SACUBITRIL/VALSARTAN 49 MG-51 MG TABLET PO SCH ×2 (10:09→21:36)
[2021-07-28] MEDS: ASPIRIN 81 MG CHEWABLE TABLETS PO SCH (10:09)
[2021-07-28] MEDS: FINASTERIDE 5 MG TABLET (FP) PO SCH (10:09)
[2021-07-28] MEDS ORDERED: FLU VACC QS2021-22(6MOS UP)/PF 60 MCG/0.5 ML SYRINGE IM ONE (11:00)
[2021-07-28] MEDS ORDERED: PNEUMOC 13-VAL CONJ-DIP CRM/PF 0.5 ML DISP.SYRIN IM ONE (11:15)
[2021-07-28] MEDS: ATORVASTATIN CA 80 MG TABLET (FP) PO SCH (21:36)
[2021-07-29] MEDS: HEPARIN NA (PORCINE) 5,000 UNITS/ML 1ML VIAL SQ SCH ×3 (06:14→21:36)
[2021-07-29 07:54] LABS: ALBUMIN 2.6 g/dl (3.4-5.0); CALCIUM 8.6 mg/dL (8.5-10.1)
[2021-07-29 07:55] LABS: BLOOD UREA NITROGEN 43.6 mg/dL (7-18); MAGNESIUM 1.9 mg/dL (1.8-2.4)
[2021-07-29 07:58] LABS: CREATININE 1.5 mg/dL (0.55-1.3); PHOSPHOROUS 2.5 mg/dL (2.5-4.9)
[2021-07-29 07:59] LABS: BILIRUBIN,TOTAL 0.4 mg/dL (0.2-1); TOT PROT 5.3 g/dl (6.4-8.2)
[2021-07-29 08:02] LABS: BASO % 0.4 % (0-2.0); EOS % 1.8 % (0-4.5); HEMATOCRIT 37.5 % (35.4-49); HEMOGLOBIN 12.6 GM/dL (11.7-16.9); LYMPH % 9.8 % (8-40); MCH 30.6 pg (25.7-33.7); MCHC 33.6 g/dl (32.0-35.9); MEAN CELL VOLUME 91.1 fl (80-96); MEAN PLT VOLUME 8.8 fl (7.5-11.1); MONO % 5.4 % (3.8-10.2); NEUT % 82.6 % (42.8-82.8); PLATELET COUNT 145 10^3/uL (134-434); RBC 4.12 M/mm3 (4.00-5.60); RDW 14.4 % (11.9-15.9); WHITE BLOOD COUNT 9.2 K/mm3 (4.0-10.0)
[2021-07-29] MEDS ORDERED: PT OWN MED DRAWER 7, Y5N ONE ×2 (09:21→19:57)
[2021-07-29] MEDS: CARVEDILOL 25 MG TABLET (FP) PO SCH ×2 (10:00→21:35)
[2021-07-29] MEDS: ASCORBIC ACID 500 MG TABLET (FP) PO SCH (10:00)
[2021-07-29] MEDS: ASPIRIN 81 MG CHEWABLE TABLETS PO SCH (10:00)
[2021-07-29] MEDS: CHOLECALCIFEROL (VIT D3) 1,000 UNIT (25 MCG) TABLET PO SCH (10:00)
[2021-07-29] MEDS: SACUBITRIL/VALSARTAN 49 MG-51 MG TABLET PO SCH ×2 (10:00→21:35)
[2021-07-29] MEDS: FINASTERIDE 5 MG TABLET (FP) PO SCH (10:00)
[2021-07-29] MEDS: TAMSULOSIN HCL 0.4 MG CAP PO SCH (10:00)
[2021-07-29] MEDS: ATORVASTATIN CA 80 MG TABLET (FP) PO SCH (21:36)
[2021-07-30] MEDS: HEPARIN NA (PORCINE) 5,000 UNITS/ML 1ML VIAL SQ SCH ×2 (06:30→06:42)
[2021-07-30 08:11] VITALS: BP 127/69; PULSE 70; TEMP 98.2
[2021-07-30] MEDS: CARVEDILOL 25 MG TABLET (FP) PO SCH (09:07)
[2021-07-30] MEDS: ASPIRIN 81 MG CHEWABLE TABLETS PO SCH (09:08)
[2021-07-30] MEDS: CHOLECALCIFEROL (VIT D3) 1,000 UNIT (25 MCG) TABLET PO SCH (09:08)
[2021-07-30] MEDS: FINASTERIDE 5 MG TABLET (FP) PO SCH (09:08)
[2021-07-30] MEDS: ASCORBIC ACID 500 MG TABLET (FP) PO SCH (09:08)
[2021-07-30] MEDS: TAMSULOSIN HCL 0.4 MG CAP PO SCH (09:08)
[2021-07-30] MEDS: SACUBITRIL/VALSARTAN 49 MG-51 MG TABLET PO SCH (09:10)
== END 2021-07-30 13:54 | disposition home or self-care (01) | DRG 683 ==
LOC: JER 09:46 → JERBED 16:01 → OBSVTOIN 17:19 → J4W 07-25 02:16
PROVIDERS: ADMIT Internal Medicine
DX: N17.9 Acute kidney failure, unspecified (principal); K50.90 Crohn's disease, unspecified, without complications; I13.0 Hypertensive heart and chronic kidney disease with heart failure and stage 1 through stage 4 chronic kidney disease, or unspecified chronic kidney disease; I50.22 Chronic systolic (congestive) heart failure; N18.30 Chronic kidney disease, stage 3 unspecified; N13.8 Other obstructive and reflux uropathy; R55 Syncope and collapse; E78.5 Hyperlipidemia, unspecified; J44.9 Chronic obstructive pulmonary disease, unspecified; I08.0 Rheumatic disorders of both mitral and aortic valves; M54.50 Low back pain, unspecified; I44.0 Atrioventricular block, first degree; R29.6 Repeated falls; F39 Unspecified mood [affective] disorder; I25.119 Atherosclerotic heart disease of native coronary artery with unspecified angina pectoris; N13.9 Obstructive and reflux uropathy, unspecified; R33.9 Retention of urine, unspecified; N40.1 Benign prostatic hyperplasia with lower urinary tract symptoms; R33.8 Other retention of urine; Z86.718 Personal history of other venous thrombosis and embolism
CPT/HCPCS: 36415; 70450-TC; 71045-TC-FY; 72070-TC-FY; 72100-TC-FY; 72125-TC; 72131-TC; 72170-TC-FY; 76775-TC; 76856-TC; 80053; 81003; 82550; 82570; 83735; 83880; 84100; 84156; 84300; 84439; 84443; 84484; 84550; 85025; 85027; 90670; 90686; 93005; 93010; 93880-TC; 97116-GP; 97161-GP; 99285-25; C9803; G0008; G0009; G0378; J1644; U0003; U0005

== ENCOUNTER 2022-08-20 18:20 | Inpatient (IN) | payer BC, OTHER ==
[2022-08-20 19:51] LABS: VENOUS BASE EXCESS -0.5 mmol/L (-2-2); VENOUS O2 SATURATION 70.7 % (70-80); VENOUS PCO2 47.5 mmHg (38-52); VENOUS PH 7.35 (7.310-7.410)
[2022-08-20 20:06] LABS: BASO % 0.6 % (0-2.0); EOS % 1.8 % (0-4.5); HEMATOCRIT 39.6 % (35.4-49); HEMOGLOBIN 13.6 GM/dL (11.7-16.9); LYMPH % 13.6 % (8-40); MCH 31.6 pg (25.7-33.7); MCHC 34.3 g/dl (32.0-35.9); MEAN CELL VOLUME 91.9 fl (80-96); MEAN PLT VOLUME 7.9 fl (7.5-11.1); MONO % 7.3 % (3.8-10.2); NEUT % 76.7 % (42.8-82.8); PLATELET COUNT 139 10^3/uL (134-434); RBC 4.31 M/mm3 (4.00-5.60); RDW 14.8 % (11.9-15.9)
[2022-08-20 20:14] LABS: INR 1.1 (0.83-1.09); PROTHROMBIN TIME (PATIENT) 12.7 SEC (9.7-13.0)
[2022-08-20 20:16] LABS: ACTIVATED PTT 30.4 SECONDS (25.2-36.5)
[2022-08-20 20:22] LABS: CALCIUM 9.7 mg/dL (8.5-10.1)
[2022-08-20 20:24] LABS: BLOOD UREA NITROGEN 34.5 mg/dL (7-18)
[2022-08-20 20:26] LABS: CREATININE 1.7 mg/dL (0.55-1.3)
[2022-08-20 20:27] LABS: TOT PROT 6.6 g/dl (6.4-8.2)
[2022-08-20 20:28] LABS: BILIRUBIN,TOTAL 0.7 mg/dL (0.2-1)
[2022-08-20 21:00] LABS: LACTIC ACID 2.7 mmol/L (0.4-2.0)
[2022-08-20 21:04] LABS: URINE APPEARANCE CLEAR; URINE BILIRUBIN NEGATIVE (NEGATIVE); URINE COLOR YELLOW; URINE GLUCOSE (UA) NEGATIVE (NEGATIVE); URINE KETONE NEGATIVE (NEGATIVE); URINE LEUK ESTERASE NEGATIVE (NEGATIVE); URINE NITRITE NEGATIVE (NEGATIVE); URINE PROTEIN NEGATIVE (NEGATIVE); URINE UROBILINOGEN 0.2 mg/dL (0.2-1.0)
[2022-08-21] MEDS: SODIUM CHLORIDE 1,000 ML IV SCH (03:05)
[2022-08-21 06:29] LABS: BASO % 0.3 % (0-2.0); EOS % 0.5 % (0-4.5); HEMATOCRIT 38.4 % (35.4-49); HEMOGLOBIN 13.3 GM/dL (11.7-16.9); LYMPH % 6.7 % (8-40); MCH 31.4 pg (25.7-33.7); MCHC 34.6 g/dl (32.0-35.9); MEAN CELL VOLUME 90.8 fl (80-96); NEUT % 86.5 % (42.8-82.8); PLATELET COUNT 137 10^3/uL (134-434); RBC 4.23 M/mm3 (4.00-5.60); RDW 14.6 % (11.9-15.9); WHITE BLOOD COUNT 9.7 K/mm3 (4.0-10.0)
[2022-08-21 06:46] LABS: BLOOD UREA NITROGEN 30.6 mg/dL (7-18); CALCIUM 9.6 mg/dL (8.5-10.1); MAGNESIUM 2.1 mg/dL (1.8-2.4)
[2022-08-21 06:50] LABS: PHOSPHOROUS 2.6 mg/dL (2.5-4.9)
[2022-08-21 06:51] LABS: CREATININE 1.4 mg/dL (0.55-1.3)
[2022-08-21] MEDS ORDERED: amLODIPine BESYLATE 10 MG TABLET (FP) ONE (08:37)
[2022-08-21] MEDS ORDERED: CHOLECALCIFEROL (VIT D3) 1,000 UNIT (25 MCG) TABLET ONE (08:37)
[2022-08-21] MEDS ORDERED: ASPIRIN 81 MG CHEWABLE TABLETS ONE (08:37)
[2022-08-21] MEDS ORDERED: LOSARTAN POTASSIUM 25 MG TABLET ONE (08:37)
[2022-08-21] MEDS ORDERED: ASCORBIC ACID 500 MG TABLET (FP) ONE (08:37)
[2022-08-21] MEDS ORDERED: CARVEDILOL 25 MG TABLET (FP) ONE (08:38)
[2022-08-21] MEDS ORDERED: DONEPEZIL HCL 5 MG TABLET (FP) ONE (08:38)
[2022-08-21] MEDS: CHOLECALCIFEROL (VIT D3) 1,000 UNIT (25 MCG) TABLET PO SCH (11:30)
[2022-08-21] MEDS: LOSARTAN POTASSIUM 25 MG TABLET PO SCH (11:30)
[2022-08-21] MEDS: ASCORBIC ACID 500 MG TABLET (FP) PO SCH (11:30)
[2022-08-21] MEDS: ASPIRIN 81 MG CHEWABLE TABLETS PO SCH (11:30)
[2022-08-21] MEDS: amLODIPine BESYLATE 10 MG TABLET (FP) PO SCH (11:30)
[2022-08-21] MEDS: FINASTERIDE 5 MG TABLET (FP) PO SCH (11:30)
[2022-08-21] MEDS: CARVEDILOL 25 MG TABLET (FP) PO SCH ×2 (11:30→22:34)
[2022-08-21] MEDS: DONEPEZIL HCL 5 MG TABLET (FP) PO SCH (11:30)
[2022-08-21 11:36] LABS: N-TERMINAL BNP 2838.5 pg/ml (5-450)
[2022-08-21] MEDS: TAMSULOSIN HCL 0.4 MG CAP PO SCH (22:34)
[2022-08-21] MEDS: ATORVASTATIN CA 80 MG TABLET (FP) PO SCH (22:34)
[2022-08-21] MEDS: D5-1/2NS+10 MEQ KCL - 10 MEQ/1,000 ML INFUS.BAG IV SCH (22:37)
[2022-08-22] MEDS: ASPIRIN 81 MG CHEWABLE TABLETS PO SCH (10:35)
[2022-08-22] MEDS: CARVEDILOL 25 MG TABLET (FP) PO SCH ×2 (10:35→21:12)
[2022-08-22] MEDS: CHOLECALCIFEROL (VIT D3) 1,000 UNIT (25 MCG) TABLET PO SCH (10:35)
[2022-08-22] MEDS: LOSARTAN POTASSIUM 25 MG TABLET PO SCH (10:35)
[2022-08-22] MEDS: amLODIPine BESYLATE 10 MG TABLET (FP) PO SCH (10:35)
[2022-08-22] MEDS: ASCORBIC ACID 500 MG TABLET (FP) PO SCH (10:35)
[2022-08-22] MEDS: FINASTERIDE 5 MG TABLET (FP) PO SCH (10:35)
[2022-08-22] MEDS: DONEPEZIL HCL 5 MG TABLET (FP) PO SCH (10:35)
[2022-08-22] MEDS: SODIUM CHLORIDE 1,000 ML IV SCH (21:11)
[2022-08-22] MEDS: TAMSULOSIN HCL 0.4 MG CAP PO SCH (21:12)
[2022-08-22] MEDS: ATORVASTATIN CA 80 MG TABLET (FP) PO SCH (21:12)
[2022-08-22] MEDS: D5-1/2NS+10 MEQ KCL - 10 MEQ/1,000 ML INFUS.BAG IV SCH (21:15)
[2022-08-23 08:28] LABS: BASO % 0.4 % (0-2.0); EOS % 2.2 % (0-4.5); HEMATOCRIT 34.2 % (35.4-49); HEMOGLOBIN 11.7 GM/dL (11.7-16.9); LYMPH % 13.7 % (8-40); MCH 31.6 pg (25.7-33.7); MCHC 34.3 g/dl (32.0-35.9); MEAN CELL VOLUME 92.1 fl (80-96); MEAN PLT VOLUME 8.1 fl (7.5-11.1); MONO % 10.1 % (3.8-10.2); NEUT % 73.6 % (42.8-82.8); PLATELET COUNT 110 10^3/uL (134-434); RBC 3.71 M/mm3 (4.00-5.60); RDW 14.4 % (11.9-15.9); WHITE BLOOD COUNT 7.8 K/mm3 (4.0-10.0)
[2022-08-23 08:46] LABS: CALCIUM 8.5 mg/dL (8.5-10.1)
[2022-08-23 08:47] LABS: BLOOD UREA NITROGEN 31.9 mg/dL (7-18)
[2022-08-23 08:50] LABS: CREATININE 1.3 mg/dL (0.55-1.3)
[2022-08-23] MEDS: DONEPEZIL HCL 5 MG TABLET (FP) PO SCH ×2 (10:58→14:26)
[2022-08-23] MEDS: CARVEDILOL 25 MG TABLET (FP) PO SCH ×3 (10:59→21:56)
[2022-08-23] MEDS: ASCORBIC ACID 500 MG TABLET (FP) PO SCH ×2 (10:59→14:27)
[2022-08-23] MEDS: FINASTERIDE 5 MG TABLET (FP) PO SCH ×2 (10:59→14:27)
[2022-08-23] MEDS: amLODIPine BESYLATE 10 MG TABLET (FP) PO SCH ×2 (10:59→14:26)
[2022-08-23] MEDS: ASPIRIN 81 MG CHEWABLE TABLETS PO SCH ×2 (10:59→14:27)
[2022-08-23] MEDS: LOSARTAN POTASSIUM 25 MG TABLET PO SCH ×2 (10:59→14:26)
[2022-08-23] MEDS: CHOLECALCIFEROL (VIT D3) 1,000 UNIT (25 MCG) TABLET PO SCH ×2 (10:59→14:27)
[2022-08-23] MEDS: D5-1/2NS+10 MEQ KCL - 10 MEQ/1,000 ML INFUS.BAG IV SCH ×2 (14:26→17:35)
[2022-08-23] MEDS: ATORVASTATIN CA 40 MG TABLET (FP) PO SCH (21:56)
[2022-08-23] MEDS: TAMSULOSIN HCL 0.4 MG CAP PO SCH (21:56)
[2022-08-24 03:46] VITALS: RESP 20
[2022-08-24] MEDS: amLODIPine BESYLATE 10 MG TABLET (FP) PO SCH (09:43)
[2022-08-24] MEDS: ASPIRIN 81 MG CHEWABLE TABLETS PO SCH (09:43)
[2022-08-24] MEDS: CARVEDILOL 25 MG TABLET (FP) PO SCH ×2 (09:43→22:37)
[2022-08-24] MEDS: ASCORBIC ACID 500 MG TABLET (FP) PO SCH (09:43)
[2022-08-24] MEDS: FINASTERIDE 5 MG TABLET (FP) PO SCH (09:44)
[2022-08-24] MEDS: DONEPEZIL HCL 5 MG TABLET (FP) PO SCH (09:44)
[2022-08-24] MEDS: CHOLECALCIFEROL (VIT D3) 1,000 UNIT (25 MCG) TABLET PO SCH (09:44)
[2022-08-24] MEDS: SACUBITRIL/VALSARTAN 49 MG-51 MG TABLET PO SCH ×2 (09:46→22:37)
[2022-08-24] MEDS: D5-1/2NS+10 MEQ KCL - 10 MEQ/1,000 ML INFUS.BAG IV SCH (14:00)
[2022-08-24] MEDS: ATORVASTATIN CA 40 MG TABLET (FP) PO SCH (22:37)
[2022-08-24] MEDS: TAMSULOSIN HCL 0.4 MG CAP PO SCH (22:37)
[2022-08-25] MEDS: amLODIPine BESYLATE 10 MG TABLET (FP) PO SCH ×2 (09:09→09:15)
[2022-08-25] MEDS: FINASTERIDE 5 MG TABLET (FP) PO SCH ×2 (09:09→09:15)
[2022-08-25] MEDS: CARVEDILOL 25 MG TABLET (FP) PO SCH ×2 (09:09→22:05)
[2022-08-25] MEDS: SACUBITRIL/VALSARTAN 49 MG-51 MG TABLET PO SCH ×2 (09:09→22:05)
[2022-08-25] MEDS: DONEPEZIL HCL 5 MG TABLET (FP) PO SCH ×2 (09:09→09:15)
[2022-08-25] MEDS: CHOLECALCIFEROL (VIT D3) 1,000 UNIT (25 MCG) TABLET PO SCH ×2 (09:10→09:16)
[2022-08-25] MEDS: ASPIRIN 81 MG CHEWABLE TABLETS PO SCH ×2 (09:10→09:14)
[2022-08-25] MEDS: ASCORBIC ACID 500 MG TABLET (FP) PO SCH ×2 (09:10→09:15)
[2022-08-25] MEDS: TAMSULOSIN HCL 0.4 MG CAP PO SCH (22:04)
[2022-08-25] MEDS: ATORVASTATIN CA 40 MG TABLET (FP) PO SCH (22:04)
[2022-08-26 02:16] VITALS: TEMP 99
[2022-08-26 08:29] VITALS: BP 141/83; PULSE 77
[2022-08-26] MEDS: ASPIRIN 81 MG CHEWABLE TABLETS PO SCH (09:30)
[2022-08-26] MEDS: ASCORBIC ACID 500 MG TABLET (FP) PO SCH (09:30)
[2022-08-26] MEDS: CARVEDILOL 25 MG TABLET (FP) PO SCH (09:30)
[2022-08-26] MEDS: FINASTERIDE 5 MG TABLET (FP) PO SCH (09:30)
[2022-08-26] MEDS: CHOLECALCIFEROL (VIT D3) 1,000 UNIT (25 MCG) TABLET PO SCH (09:30)
[2022-08-26] MEDS: amLODIPine BESYLATE 10 MG TABLET (FP) PO SCH (09:30)
[2022-08-26] MEDS: DONEPEZIL HCL 5 MG TABLET (FP) PO SCH (09:30)
[2022-08-26] MEDS: SACUBITRIL/VALSARTAN 49 MG-51 MG TABLET PO SCH (11:46)
[2022-08-26 12:16] VITALS: BMI 15.0
== END 2022-08-26 12:02 | disposition home or self-care (01) | DRG 312 ==
LOC: JER 18:20 → JERBED 19:34 → J4W 08-21 18:21
PROVIDERS: ADMIT Internal Medicine; ATTEND Internal Medicine
DX: R55 Syncope and collapse (principal); G93.41 Metabolic encephalopathy; I13.0 Hypertensive heart and chronic kidney disease with heart failure and stage 1 through stage 4 chronic kidney disease, or unspecified chronic kidney disease; K50.90 Crohn's disease, unspecified, without complications; N17.9 Acute kidney failure, unspecified; I50.22 Chronic systolic (congestive) heart failure; N40.0 Benign prostatic hyperplasia without lower urinary tract symptoms; J44.9 Chronic obstructive pulmonary disease, unspecified; E78.5 Hyperlipidemia, unspecified; R40.0 Somnolence; G30.9 Alzheimer's disease, unspecified; F02.80 Dementia in other diseases classified elsewhere, unspecified severity, without behavioral disturbance, psychotic disturbance, mood disturbance, and anxiety; I08.0 Rheumatic disorders of both mitral and aortic valves; M54.50 Low back pain, unspecified; E54 Ascorbic acid deficiency; N18.9 Chronic kidney disease, unspecified; I25.119 Atherosclerotic heart disease of native coronary artery with unspecified angina pectoris; R53.1 Weakness; I71.21 Aneurysm of the ascending aorta, without rupture
CPT/HCPCS: 36415; 70450-TC; 70551-TC; 71045-TC-FY; 71275-TC; 80048; 80053; 80061; 81003; 82550; 82607; 82803; 82962; 83605; 83735; 83880; 84100; 84443; 84484; 85025; 85379; 85610; 85730; 87086; 93005; 93010; 93306-TC; 93970-TC; 95816; 97116-GP; 97162-GP; 99285-25; C9803-CS; Q9967; U0003; U0005

== ENCOUNTER 2023-02-05 09:07 | Observation (INO) | payer BC, OTHER ==
[2023-02-05 09:39] VITALS: BMI 20.3
[2023-02-05 10:07] LABS: BASO % 0.7 % (0-2.0); EOS % 1.3 % (0-4.5); HEMATOCRIT 35.7 % (35.4-49); HEMOGLOBIN 12.3 GM/dL (11.7-16.9); LYMPH % 11.4 % (8-40); MCH 31.2 pg (25.7-33.7); MCHC 34.6 g/dl (32.0-35.9); MEAN CELL VOLUME 90.2 fl (80-96); MONO % 7.1 % (3.8-10.2); NEUT % 79.5 % (42.8-82.8); PLATELET COUNT 124 10^3/uL (134-434); RBC 3.95 M/mm3 (4.00-5.60); RDW 15.1 % (11.9-15.9); WHITE BLOOD COUNT 6.8 K/mm3 (4.0-10.0)
[2023-02-05 10:14] LABS: INR 1.09 (0.83-1.09); PROTHROMBIN TIME (PATIENT) 12.6 SEC (9.7-13.0)
[2023-02-05 10:16] LABS: ACTIVATED PTT 30.2 SECONDS (25.2-36.5)
[2023-02-05 11:14] LABS: BLOOD UREA NITROGEN 29.8 mg/dL (7-18); CALCIUM 9.3 mg/dL (8.5-10.1)
[2023-02-05 11:15] LABS: ALBUMIN 3.4 g/dl (3.4-5.0)
[2023-02-05 11:18] LABS: CREATININE 1.5 mg/dL (0.55-1.3)
[2023-02-05 11:19] LABS: BILIRUBIN,TOTAL 0.8 mg/dL (0.2-1)
[2023-02-05 13:38] LABS: EPI CELLS 10 /uL (0-25.1); HYALINE CASTS 7 /uL (0-3.1); PH,URINE 8.5 (5.0-8.0); URINE APPEARANCE TURBID; URINE BACTERIA 2660 /uL (0-1359); URINE BILIRUBIN NEGATIVE (NEGATIVE); URINE COLOR YELLOW; URINE GLUCOSE (UA) NEGATIVE (NEGATIVE); URINE KETONE NEGATIVE (NEGATIVE); URINE LEUK ESTERASE 3+ (NEGATIVE); URINE NITRITE NEGATIVE (NEGATIVE); URINE PROTEIN 1+ (NEGATIVE); URINE UROBILINOGEN 0.2 mg/dL (0.2-1.0); URINE WBC 7028 /uL (0-25.8)
[2023-02-05] MEDS ORDERED: DIPHTH,PERTUSS(ACELL),TET 0.5 ML DISP.SYRIN IM ONE ×2 (13:39→13:45)
[2023-02-05] MEDS ORDERED: CEFTRIAXONE 1,000 MG in DEXTROSE 5%-WATER - 50 ML IVPB ONE (13:44)
[2023-02-05] MEDS ORDERED: CEFTRIAXONE 1 GM in DEXTROSE 5%-WATER - 50 ML IVPB ONE (13:52)
[2023-02-05] MEDS ORDERED: cefTRIAXone SODIUM 1 GM VIAL ONE (13:53)
[2023-02-05 14:58] LABS: URINE RBC 132.5 /uL (0-23.9)
[2023-02-05] MEDS: HEPARIN NA (PORCINE) 5,000 UNITS/ML 1ML VIAL SQ SCH (21:15)
[2023-02-05] MEDS: CARVEDILOL 25 MG TABLET (FP) PO SCH (21:16)
[2023-02-05] MEDS: DONEPEZIL HCL 5 MG TABLET (FP) PO SCH (21:16)
[2023-02-05] MEDS: ATORVASTATIN CA 80 MG TABLET (FP) PO SCH (21:16)
[2023-02-06 09:18] LABS: BASO % 0.6 % (0-2.0); EOS % 4.1 % (0-4.5); HEMATOCRIT 31.7 % (35.4-49); HEMOGLOBIN 11.3 GM/dL (11.7-16.9); MCH 31.9 pg (25.7-33.7); MCHC 35.7 g/dl (32.0-35.9); MEAN CELL VOLUME 89.3 fl (80-96); MEAN PLT VOLUME 8.6 fl (7.5-11.1); MONO % 10.1 % (3.8-10.2); NEUT % 67.2 % (42.8-82.8); PLATELET COUNT 117 10^3/uL (134-434); RBC 3.55 M/mm3 (4.00-5.60); RDW 14.6 % (11.9-15.9); WHITE BLOOD COUNT 6.4 K/mm3 (4.0-10.0)
[2023-02-06 09:46] LABS: BLOOD UREA NITROGEN 35.7 mg/dL (7-18)
[2023-02-06 09:49] LABS: CREATININE 1.4 mg/dL (0.55-1.3)
[2023-02-06] MEDS: TAMSULOSIN HCL 0.4 MG CAP PO SCH (09:50)
[2023-02-06] MEDS: FINASTERIDE 5 MG TABLET (FP) PO SCH (09:50)
[2023-02-06] MEDS: HEPARIN NA (PORCINE) 5,000 UNITS/ML 1ML VIAL SQ SCH ×2 (09:50→21:25)
[2023-02-06] MEDS: amLODIPine BESYLATE 10 MG TABLET (FP) PO SCH (09:50)
[2023-02-06] MEDS: CARVEDILOL 25 MG TABLET (FP) PO SCH ×2 (09:50→21:25)
[2023-02-06] MEDS: ASCORBIC ACID 500 MG TABLET (FP) PO SCH (09:50)
[2023-02-06] MEDS: ASPIRIN 81 MG CHEWABLE TABLETS PO SCH (09:50)
[2023-02-06] MEDS: CEFTRIAXONE 1 GM in DEXTROSE 5%-WATER - 50 ML IVPB SCH (09:50)
[2023-02-06] MEDS: CHOLECALCIFEROL (VIT D3) 1,000 UNIT (25 MCG) TABLET PO SCH (09:50)
[2023-02-06] MEDS: LOSARTAN POTASSIUM 25 MG TABLET PO SCH (09:50)
[2023-02-06 11:23] LABS: N-TERMINAL BNP 3905.2 pg/ml (5-450)
[2023-02-06] MEDS: DONEPEZIL HCL 5 MG TABLET (FP) PO SCH (21:25)
[2023-02-06] MEDS: ATORVASTATIN CA 80 MG TABLET (FP) PO SCH (21:25)
[2023-02-07] MEDS: CARVEDILOL 25 MG TABLET (FP) PO SCH ×2 (10:23→21:13)
[2023-02-07] MEDS: CHOLECALCIFEROL (VIT D3) 1,000 UNIT (25 MCG) TABLET PO SCH (10:23)
[2023-02-07] MEDS: FINASTERIDE 5 MG TABLET (FP) PO SCH (10:23)
[2023-02-07] MEDS: ASCORBIC ACID 500 MG TABLET (FP) PO SCH (10:23)
[2023-02-07] MEDS: TAMSULOSIN HCL 0.4 MG CAP PO SCH (10:23)
[2023-02-07] MEDS: ASPIRIN 81 MG CHEWABLE TABLETS PO SCH (10:23)
[2023-02-07] MEDS: LOSARTAN POTASSIUM 25 MG TABLET PO SCH (10:24)
[2023-02-07] MEDS: amLODIPine BESYLATE 10 MG TABLET (FP) PO SCH (10:24)
[2023-02-07] MEDS: HEPARIN NA (PORCINE) 5,000 UNITS/ML 1ML VIAL SQ SCH ×2 (10:26→21:13)
[2023-02-07] MEDS: CEFTRIAXONE 1 GM in DEXTROSE 5%-WATER - 50 ML IVPB SCH (14:04)
[2023-02-07 16:39] LABS: EPI CELLS 1 /uL (0-25.1); HYALINE CASTS 0 /uL (0-3.1); URINE APPEARANCE CLOUDY; URINE BACTERIA 136 /uL (0-1359); URINE BILIRUBIN NEGATIVE (NEGATIVE); URINE COLOR YELLOW; URINE GLUCOSE (UA) NEGATIVE (NEGATIVE); URINE KETONE NEGATIVE (NEGATIVE); URINE LEUK ESTERASE 3+ (NEGATIVE); URINE NITRITE NEGATIVE (NEGATIVE); URINE PROTEIN NEGATIVE (NEGATIVE); URINE RBC 54 /uL (0-23.9); URINE UROBILINOGEN 0.2 mg/dL (0.2-1.0); URINE WBC 1317 /uL (0-25.8)
[2023-02-07] MEDS: ATORVASTATIN CA 80 MG TABLET (FP) PO SCH (21:13)
[2023-02-07] MEDS: DONEPEZIL HCL 5 MG TABLET (FP) PO SCH (21:13)
[2023-02-08 08:43] LABS: BASO % 0.7 % (0-2.0); HEMATOCRIT 31.6 % (35.4-49); LYMPH % 15.9 % (8-40); MCH 31.1 pg (25.7-33.7); MCHC 34.8 g/dl (32.0-35.9); MEAN CELL VOLUME 89.6 fl (80-96); MEAN PLT VOLUME 8.4 fl (7.5-11.1); MONO % 10.6 % (3.8-10.2); NEUT % 68.8 % (42.8-82.8); PLATELET COUNT 118 10^3/uL (134-434); RBC 3.53 M/mm3 (4.00-5.60); WHITE BLOOD COUNT 5.9 K/mm3 (4.0-10.0)
[2023-02-08] MEDS: TAMSULOSIN HCL 0.4 MG CAP PO SCH (08:57)
[2023-02-08] MEDS: LOSARTAN POTASSIUM 25 MG TABLET PO SCH (09:02)
[2023-02-08] MEDS: ASPIRIN 81 MG CHEWABLE TABLETS PO SCH (09:02)
[2023-02-08] MEDS: amLODIPine BESYLATE 10 MG TABLET (FP) PO SCH (09:02)
[2023-02-08] MEDS: ASCORBIC ACID 500 MG TABLET (FP) PO SCH (09:02)
[2023-02-08] MEDS: CHOLECALCIFEROL (VIT D3) 1,000 UNIT (25 MCG) TABLET PO SCH (09:02)
[2023-02-08] MEDS: FINASTERIDE 5 MG TABLET (FP) PO SCH (09:03)
[2023-02-08] MEDS: CARVEDILOL 25 MG TABLET (FP) PO SCH ×2 (09:03→21:04)
[2023-02-08] MEDS: CEFTRIAXONE 1 GM in DEXTROSE 5%-WATER - 50 ML IVPB SCH (09:03)
[2023-02-08 09:04] LABS: CALCIUM 8.5 mg/dL (8.5-10.1)
[2023-02-08] MEDS: HEPARIN NA (PORCINE) 5,000 UNITS/ML 1ML VIAL SQ SCH ×2 (09:04→21:05)
[2023-02-08 09:05] LABS: BLOOD UREA NITROGEN 34.5 mg/dL (7-18); CREATININE 1.3 mg/dL (0.55-1.3)
[2023-02-08] MEDS: ATORVASTATIN CA 80 MG TABLET (FP) PO SCH (21:04)
[2023-02-08] MEDS: DONEPEZIL HCL 5 MG TABLET (FP) PO SCH (21:05)
[2023-02-09] MEDS: CHOLECALCIFEROL (VIT D3) 1,000 UNIT (25 MCG) TABLET PO SCH (09:48)
[2023-02-09] MEDS: CEFTRIAXONE 1 GM in DEXTROSE 5%-WATER - 50 ML IVPB SCH (09:48)
[2023-02-09] MEDS: TAMSULOSIN HCL 0.4 MG CAP PO SCH (09:48)
[2023-02-09] MEDS: LOSARTAN POTASSIUM 25 MG TABLET PO SCH (09:49)
[2023-02-09] MEDS: ASPIRIN 81 MG CHEWABLE TABLETS PO SCH (09:49)
[2023-02-09] MEDS: CARVEDILOL 25 MG TABLET (FP) PO SCH (09:49)
[2023-02-09] MEDS: HEPARIN NA (PORCINE) 5,000 UNITS/ML 1ML VIAL SQ SCH (09:49)
[2023-02-09] MEDS: amLODIPine BESYLATE 10 MG TABLET (FP) PO SCH (09:49)
[2023-02-09] MEDS: FINASTERIDE 5 MG TABLET (FP) PO SCH (09:49)
[2023-02-09] MEDS: ASCORBIC ACID 500 MG TABLET (FP) PO SCH (09:49)
[2023-02-09 14:56] VITALS: BP 125/69; PULSE 72; RESP 18; TEMP 98
== END 2023-02-09 16:30 ==
LOC: JER 09:07 → JERBED 12:47 → J4W 15:46
PROVIDERS: ADMIT Internal Medicine; ATTEND Internal Medicine
PROC: 3E03329 Introduction of Other Anti-infective into Peripheral Vein, Percutaneous Approach (ICD-10-PCS; principal; 2023-02-05)
PROC: 3E013GC Introduction of Other Therapeutic Substance into Subcutaneous Tissue, Percutaneous Approach (ICD-10-PCS; 2023-02-05)
PROC: 3E0234Z Introduction of Serum, Toxoid and Vaccine into Muscle, Percutaneous Approach (ICD-10-PCS; 2023-02-05)
DX: R29.6 Repeated falls (principal); S09.93XA Unspecified injury of face, initial encounter; R40.0 Somnolence; N49.0 Inflammatory disorders of seminal vesicle; R82.81 Pyuria; I13.0 Hypertensive heart and chronic kidney disease with heart failure and stage 1 through stage 4 chronic kidney disease, or unspecified chronic kidney disease; N18.31 Chronic kidney disease, stage 3a; I50.23 Acute on chronic systolic (congestive) heart failure; I25.10 Atherosclerotic heart disease of native coronary artery without angina pectoris; G30.9 Alzheimer's disease, unspecified; F02.80 Dementia in other diseases classified elsewhere, unspecified severity, without behavioral disturbance, psychotic disturbance, mood disturbance, and anxiety; N40.0 Benign prostatic hyperplasia without lower urinary tract symptoms; E78.5 Hyperlipidemia, unspecified; R55 Syncope and collapse; J44.9 Chronic obstructive pulmonary disease, unspecified; K50.90 Crohn's disease, unspecified, without complications; M54.59 Other low back pain; G89.29 Other chronic pain; E54 Ascorbic acid deficiency; Z86.718 Personal history of other venous thrombosis and embolism; Z86.73 Personal history of transient ischemic attack (TIA), and cerebral infarction without residual deficits; Z86.16 Personal history of COVID-19; Z95.2 Presence of prosthetic heart valve; W19.XXXA Unspecified fall, initial encounter; Z91.81 History of falling; Y93.9 Activity, unspecified; Y92.122 Bedroom in nursing home as the place of occurrence of the external cause; I35.1 Nonrheumatic aortic (valve) insufficiency
CPT/HCPCS: 36415; 70450-TC; 70486-TC; 71045-TC-FY; 72125-TC; 80048; 80053; 81003; 82272; 83880; 84484; 85025; 85610; 85730; 87086; 90471; 90715; 93005; 93010; 93306-TC; 96365; 96367; 96368; 96372; 97116-GP; 97161-GP; 99285-25; C9803-CS; G0378; J1644; U0003; U0005

== ENCOUNTER 2023-04-17 20:27 | Emergency (ER) | payer BC, OTHER ==
[2023-04-17 20:34] VITALS: RESP 16; TEMP 97.6
[2023-04-17 21:26] LABS: BASO % 0.4 % (0-2.0); EOS % 1.7 % (0-4.5); HEMATOCRIT 39.7 % (35.4-49); HEMOGLOBIN 13.5 GM/dL (11.7-16.9); LYMPH % 8.6 % (8-40); MCH 30.8 pg (25.7-33.7); MEAN CELL VOLUME 90.5 fl (80-96); MONO % 7.7 % (3.8-10.2); NEUT % 81.6 % (42.8-82.8); PLATELET COUNT 94 10^3/uL (134-434); RBC 4.38 M/mm3 (4.00-5.60); RDW 13.2 % (11.9-15.9); WHITE BLOOD COUNT 6.9 K/mm3 (4.0-10.0)
[2023-04-17 21:32] LABS: POTASSIUM 4.5 mmol/L (3.5-5.1)
[2023-04-17 21:34] LABS: CALCIUM 9.6 mg/dL (8.5-10.1)
[2023-04-17 21:35] LABS: ALBUMIN 3.5 g/dl (3.4-5.0); BLOOD UREA NITROGEN 32.9 mg/dL (7-18); INR 1.2 (0.83-1.09); PROTHROMBIN TIME (PATIENT) 13.9 SEC (9.7-13.0)
[2023-04-17 21:38] LABS: ACTIVATED PTT 39.7 SECONDS (25.2-36.5); CREATININE 1.7 mg/dL (0.55-1.3)
[2023-04-17 21:39] LABS: TOT PROT 6.3 g/dl (6.4-8.2)
[2023-04-17] MEDS ORDERED: ACETAMINOPHEN 1000 MG/100 ML BAG IVPB ONE (22:19)
[2023-04-17] MEDS ORDERED: ACETAMINOPHEN INJECTION 100 ML IVPB ONE (22:20)
[2023-04-18 01:09] VITALS: BP 115/81; PULSE 54
== END 2023-04-18 03:53 | disposition home or self-care (01) ==
LOC: JER 20:27
PROC: 3E033NZ Introduction of Analgesics, Hypnotics, Sedatives into Peripheral Vein, Percutaneous Approach (ICD-10-PCS; principal; 2023-04-17)
DX: R10.2 Pelvic and perineal pain (principal); W10.8XXA Fall (on) (from) other stairs and steps, initial encounter; Y93.01 Activity, walking, marching and hiking
CPT/HCPCS: 36415; 70450-TC; 71045-TC-FY; 72170-TC-FY; 73521-TC-FY; 73552-TC-RT-FY; 73562-TC-RT-FY; 80053; 84484; 85025; 85610; 85730; 93005; 93010; 96374; 99285-25

== ENCOUNTER 2023-06-02 18:41 | Inpatient (IN) | payer BC, OTHER ==
[2023-06-02] MEDS ORDERED: ACETAMINOPHEN 1000 MG/100 ML BAG IVPB ONE (19:21)
[2023-06-02 19:50] LABS: BASO % 0.5 % (0-2.0); EOS % 1.8 % (0-4.5); HEMATOCRIT 39.6 % (35.4-49); HEMOGLOBIN 13.2 GM/dL (11.7-16.9); LYMPH % 8.5 % (8-40); MCH 31.2 pg (25.7-33.7); MCHC 33.3 g/dl (32.0-35.9); MEAN CELL VOLUME 93.8 fl (80-96); MEAN PLT VOLUME 7.7 fl (7.5-11.1); MONO % 6.5 % (3.8-10.2); NEUT % 82.7 % (42.8-82.8); PLATELET COUNT 142 10^3/uL (134-434); RBC 4.22 M/mm3 (4.00-5.60); RDW 14.5 % (11.9-15.9); WHITE BLOOD COUNT 7.9 K/mm3 (4.0-10.0)
[2023-06-02 19:56] LABS: INR 1.07 (0.83-1.09); PROTHROMBIN TIME (PATIENT) 12.4 SEC (9.7-13.0)
[2023-06-02 19:59] LABS: ACTIVATED PTT 30.9 SECONDS (25.2-36.5)
[2023-06-02 20:25] LABS: BLOOD UREA NITROGEN 28.8 mg/dL (7-18); CALCIUM 8.9 mg/dL (8.5-10.1)
[2023-06-02 20:26] LABS: ALBUMIN 3.4 g/dl (3.4-5.0); MAGNESIUM 1.7 mg/dL (1.8-2.4)
[2023-06-02 20:28] LABS: CREATININE 1.5 mg/dL (0.55-1.3)
[2023-06-02 20:30] LABS: BILIRUBIN,TOTAL 0.4 mg/dL (0.2-1); TOT PROT 6.1 g/dl (6.4-8.2)
[2023-06-02] MEDS ORDERED: ACETAMINOPHEN INJECTION 100 ML IVPB ONE (20:31)
[2023-06-02] MEDS ORDERED: SODIUM CHLORIDE 0.9% 500 ML INFUS.BAG IV ONE (20:59)
[2023-06-02 23:16] LABS: PH,URINE 6.5 (5.0-8.0); URINE APPEARANCE CLEAR; URINE BILIRUBIN NEGATIVE (NEGATIVE); URINE COLOR YELLOW; URINE GLUCOSE (UA) NEGATIVE (NEGATIVE); URINE KETONE NEGATIVE (NEGATIVE); URINE LEUK ESTERASE NEGATIVE (NEGATIVE); URINE NITRITE NEGATIVE (NEGATIVE); URINE PROTEIN NEGATIVE (NEGATIVE); URINE UROBILINOGEN 0.2 mg/dL (0.2-1.0)
[2023-06-03] MEDS ORDERED: morphine CARPU-JECT 2 MG/1 ML DISP.SYRIN IVPUSH ONE (00:39)
[2023-06-03] MEDS ORDERED: MAGNESIUM SULF 50% (8.12 MEQ/2 ML-1 GM VIAL) IVPB ONE (00:43)
[2023-06-03] MEDS ORDERED: ACETAMINOPHEN 325 MG TABLET (FP) PO PRN (00:54)
[2023-06-03 06:11] LABS: HEMATOCRIT 38.2 % (35.4-49); HEMOGLOBIN 12.9 GM/dL (11.7-16.9); MCH 31.9 pg (25.7-33.7); MCHC 33.6 g/dl (32.0-35.9); MEAN CELL VOLUME 94.7 fl (80-96); MEAN PLT VOLUME 8.2 fl (7.5-11.1); PLATELET COUNT 146 10^3/uL (134-434); RBC 4.04 M/mm3 (4.00-5.60); RDW 14.6 % (11.9-15.9); WHITE BLOOD COUNT 14.2 K/mm3 (4.0-10.0)
[2023-06-03 06:26] LABS: POTASSIUM 4.7 mmol/L (3.5-5.1)
[2023-06-03 06:28] LABS: CALCIUM 8.5 mg/dL (8.5-10.1)
[2023-06-03 06:29] LABS: ALBUMIN 3.2 g/dl (3.4-5.0); BLOOD UREA NITROGEN 31.2 mg/dL (7-18); MAGNESIUM 1.7 mg/dL (1.8-2.4)
[2023-06-03 06:32] LABS: CREATININE 1.6 mg/dL (0.55-1.3)
[2023-06-03 06:33] LABS: BILIRUBIN,TOTAL 0.4 mg/dL (0.2-1); TOT PROT 5.6 g/dl (6.4-8.2)
[2023-06-03] MEDS ORDERED: CHOLECALCIFEROL (VIT D3) 1,000 UNIT (25 MCG) TABLET ONE (08:21)
[2023-06-03] MEDS ORDERED: LOSARTAN POTASSIUM 25 MG TABLET ONE (08:21)
[2023-06-03] MEDS ORDERED: TAMSULOSIN HCL 0.4 MG CAP ONE (08:21)
[2023-06-03] MEDS ORDERED: metoPROLOL SUCCINATE 25 MG TAB.SR.24H (FP) PO ONE (08:21)
[2023-06-03] MEDS: TAMSULOSIN HCL 0.4 MG CAP PO SCH (08:58)
[2023-06-03] MEDS: LOSARTAN POTASSIUM 25 MG TABLET PO SCH (09:10)
[2023-06-03] MEDS: metoPROLOL SUCCINATE 25 MG TAB.SR.24H (FP) PO SCH (09:10)
[2023-06-03] MEDS: CHOLECALCIFEROL (VIT D3) 1,000 UNIT (25 MCG) TABLET PO SCH (09:10)
[2023-06-03] MEDS: FINASTERIDE 5 MG TABLET (FP) PO SCH (09:50)
[2023-06-03] MEDS ORDERED: amLODIPine BESYLATE 10 MG TABLET (FP) PO SCH (10:00)
[2023-06-03] MEDS ORDERED: ASPIRIN 81 MG CHEWABLE TABLETS PO SCH (10:00)
[2023-06-03] MEDS ORDERED: CHOLECALCIFEROL (VIT D3) 1,000 UNIT (25 MCG) TABLET PO SCH (10:00)
[2023-06-03] MEDS ORDERED: oxyCODONE HCL 5 MG TABLET PO PRN (20:30)
[2023-06-03] MEDS ORDERED: ATORVASTATIN CA 80 MG TABLET (FP) PO SCH (22:00)
[2023-06-03] MEDS ORDERED: DONEPEZIL HCL 5 MG TABLET (FP) PO SCH (22:00)
[2023-06-03] MEDS ORDERED: MIRTAZAPINE 15 MG TABLET (FP) PO SCH (22:00)
[2023-06-04 08:16] LABS: BASO % 0.3 % (0-2.0); EOS % 5.1 % (0-4.5); HEMOGLOBIN 12.7 GM/dL (11.7-16.9); LYMPH % 6.2 % (8-40); MCH 31.8 pg (25.7-33.7); MCHC 33.5 g/dl (32.0-35.9); MEAN PLT VOLUME 8.6 fl (7.5-11.1); MONO % 7.2 % (3.8-10.2); NEUT % 81.2 % (42.8-82.8); PLATELET COUNT 135 10^3/uL (134-434); RDW 14.5 % (11.9-15.9); WHITE BLOOD COUNT 11.5 K/mm3 (4.0-10.0)
[2023-06-04 08:17] LABS: INR 1.17 (0.83-1.09); PROTHROMBIN TIME (PATIENT) 13.5 SEC (9.7-13.0)
[2023-06-04 08:33] LABS: POTASSIUM 4.2 mmol/L (3.5-5.1)
[2023-06-04 08:42] LABS: CALCIUM 9.2 mg/dL (8.5-10.1)
[2023-06-04] MEDS ORDERED: ceFAZolin SODIUM 1 GM VIAL ONE (08:42)
[2023-06-04] MEDS ORDERED: LIDOCAINE HCL/PF 2% SDV 5ML VIAL ONE (08:42)
[2023-06-04 08:43] LABS: ALBUMIN 3.1 g/dl (3.4-5.0); BLOOD UREA NITROGEN 36.7 mg/dL (7-18); MAGNESIUM 1.8 mg/dL (1.8-2.4)
[2023-06-04] MEDS ORDERED: MIDAZOLAM HCL 2 MG/2 ML SINGLE DOSE VIAL ONE (08:43)
[2023-06-04] MEDS ORDERED: PROPOFOL 40 ML ONE (08:43)
[2023-06-04 08:45] LABS: CREATININE 1.4 mg/dL (0.55-1.3); PHOSPHOROUS 3.5 mg/dL (2.5-4.9)
[2023-06-04 08:46] LABS: BILIRUBIN,TOTAL 0.9 mg/dL (0.2-1); TOT PROT 5.8 g/dl (6.4-8.2)
[2023-06-04] MEDS ORDERED: SUCCINYLCHOLINE CHLORIDE 200 MG/10 ML SYRINGE ONE (08:46)
[2023-06-04] MEDS ORDERED: ceFAZolin SODIUM 1 GM VIAL IVPB ONE (09:25)
[2023-06-04] MEDS ORDERED: LIDOCAINE 1%/EPI 1:100000 (20 ML MULTI DOSE VIAL) INF ONE (09:41)
[2023-06-04] MEDS ORDERED: LACTATED RINGERS SOLUTION 1,000 ML IV SCH (11:30)
[2023-06-04] MEDS ORDERED: ACETAMINOPHEN 1000 MG/100 ML BAG IVPB ONE (11:30)
[2023-06-04] MEDS ORDERED: oxyCODONE HCL 5 MG TABLET PO PRN (11:53)
[2023-06-04] MEDS ORDERED: ACETAMINOPHEN INJECTION 100 ML IVPB ONE (12:09)
[2023-06-04] MEDS: TAMSULOSIN HCL 0.4 MG CAP PO SCH (12:58)
[2023-06-04] MEDS: FINASTERIDE 5 MG TABLET (FP) PO SCH (14:34)
[2023-06-04] MEDS: DOCUSATE SODIUM 100 MG CAPSULE (FP) PO SCH ×2 (14:34→21:43)
[2023-06-04] MEDS: LOSARTAN POTASSIUM 25 MG TABLET PO SCH (14:34)
[2023-06-04] MEDS: CHOLECALCIFEROL (VIT D3) 1,000 UNIT (25 MCG) TABLET PO SCH (14:35)
[2023-06-04] MEDS: metoPROLOL SUCCINATE 25 MG TAB.SR.24H (FP) PO SCH (14:35)
[2023-06-04] MEDS: CEFAZOLIN 1 GM in DEXTROSE 5%-WATER - 50 ML IVPB SCH (17:28)
[2023-06-04] MEDS ORDERED: ATORVASTATIN CA 40 MG TABLET (FP) ONE (21:12)
[2023-06-04] MEDS: MIRTAZAPINE 15 MG TABLET (FP) PO SCH (21:43)
[2023-06-04] MEDS: ATORVASTATIN CA 80 MG TABLET (FP) PO SCH (21:49)
[2023-06-05] MEDS: CEFAZOLIN 1 GM in DEXTROSE 5%-WATER - 50 ML IVPB SCH ×2 (01:38→10:20)
[2023-06-05] MEDS: DOCUSATE SODIUM 100 MG CAPSULE (FP) PO SCH ×3 (06:56→22:01)
[2023-06-05 07:16] LABS: BASO % 0.2 % (0-2.0); EOS % 2.1 % (0-4.5); HEMATOCRIT 36.6 % (35.4-49); LYMPH % 5.4 % (8-40); MCH 31.4 pg (25.7-33.7); MCHC 32.9 g/dl (32.0-35.9); MEAN CELL VOLUME 95.5 fl (80-96); MEAN PLT VOLUME 8.3 fl (7.5-11.1); NEUT % 84.3 % (42.8-82.8); PLATELET COUNT 127 10^3/uL (134-434); RBC 3.83 M/mm3 (4.00-5.60); RDW 14.6 % (11.9-15.9); WHITE BLOOD COUNT 12.9 K/mm3 (4.0-10.0)
[2023-06-05 07:38] LABS: POTASSIUM 4.3 mmol/L (3.5-5.1)
[2023-06-05 07:41] LABS: BLOOD UREA NITROGEN 30.6 mg/dL (7-18); CALCIUM 8.7 mg/dL (8.5-10.1); MAGNESIUM 1.8 mg/dL (1.8-2.4)
[2023-06-05 07:44] LABS: CREATININE 1.3 mg/dL (0.55-1.3)
[2023-06-05 07:45] LABS: PHOSPHOROUS 2.9 mg/dL (2.5-4.9)
[2023-06-05 07:46] LABS: BILIRUBIN,TOTAL 0.6 mg/dL (0.2-1); TOT PROT 5.7 g/dl (6.4-8.2)
[2023-06-05] MEDS ORDERED: metoPROLOL SUCCINATE 25 MG TAB.SR.24H (FP) PO SCH (10:00)
[2023-06-05] MEDS ORDERED: LOSARTAN POTASSIUM 25 MG TABLET PO SCH (10:00)
[2023-06-05] MEDS: TAMSULOSIN HCL 0.4 MG CAP PO SCH (10:18)
[2023-06-05] MEDS: ENOXAPARIN NA (PORCINE) 30 MG/0.3 ML DISP.SYRIN SQ SCH (10:19)
[2023-06-05] MEDS: ASPIRIN COATED 81 MG TABLET.EC PO SCH (10:19)
[2023-06-05] MEDS: FINASTERIDE 5 MG TABLET (FP) PO SCH (10:19)
[2023-06-05] MEDS: CHOLECALCIFEROL (VIT D3) 1,000 UNIT (25 MCG) TABLET PO SCH (10:19)
[2023-06-05 13:56] VITALS: BMI 16.1
[2023-06-05] MEDS: MIRTAZAPINE 15 MG TABLET (FP) PO SCH (22:01)
[2023-06-05] MEDS: ATORVASTATIN CA 80 MG TABLET (FP) PO SCH (22:01)
[2023-06-05] MEDS: ACETAMINOPHEN 325 MG TABLET (FP) PO PRN (22:03)
[2023-06-06] MEDS: DOCUSATE SODIUM 100 MG CAPSULE (FP) PO SCH ×4 (06:38→22:04)
[2023-06-06 08:50] LABS: BASO % 0.5 % (0-2.0); HEMATOCRIT 35.3 % (35.4-49); HEMOGLOBIN 11.5 GM/dL (11.7-16.9); LYMPH % 9.1 % (8-40); MCH 31.3 pg (25.7-33.7); MCHC 32.6 g/dl (32.0-35.9); MEAN CELL VOLUME 95.9 fl (80-96); MEAN PLT VOLUME 8.7 fl (7.5-11.1); MONO % 9.6 % (3.8-10.2); NEUT % 72.8 % (42.8-82.8); PLATELET COUNT 133 10^3/uL (134-434); RBC 3.68 M/mm3 (4.00-5.60); RDW 14.3 % (11.9-15.9); WHITE BLOOD COUNT 9.8 K/mm3 (4.0-10.0)
[2023-06-06 09:04] LABS: POTASSIUM 4.2 mmol/L (3.5-5.1)
[2023-06-06 09:20] LABS: ALBUMIN 2.9 g/dl (3.4-5.0); BLOOD UREA NITROGEN 26.9 mg/dL (7-18)
[2023-06-06] MEDS: LOSARTAN POTASSIUM 50 MG TABLET PO SCH (09:22)
[2023-06-06 09:23] LABS: PHOSPHOROUS 2.6 mg/dL (2.5-4.9)
[2023-06-06] MEDS: CHOLECALCIFEROL (VIT D3) 1,000 UNIT (25 MCG) TABLET PO SCH (09:24)
[2023-06-06] MEDS: FINASTERIDE 5 MG TABLET (FP) PO SCH (09:24)
[2023-06-06] MEDS: ASPIRIN COATED 81 MG TABLET.EC PO SCH (09:24)
[2023-06-06] MEDS: ENOXAPARIN NA (PORCINE) 30 MG/0.3 ML DISP.SYRIN SQ SCH (09:24)
[2023-06-06 09:25] LABS: CALCIUM 8.5 mg/dL (8.5-10.1); MAGNESIUM 1.9 mg/dL (1.8-2.4); TOT PROT 5.2 g/dl (6.4-8.2)
[2023-06-06] MEDS: TAMSULOSIN HCL 0.4 MG CAP PO SCH (09:25)
[2023-06-06 09:28] LABS: CREATININE 1.2 mg/dL (0.55-1.3)
[2023-06-06 09:30] LABS: BILIRUBIN,TOTAL 0.5 mg/dL (0.2-1)
[2023-06-06] MEDS: ATORVASTATIN CA 80 MG TABLET (FP) PO SCH (22:04)
[2023-06-06] MEDS: MIRTAZAPINE 15 MG TABLET (FP) PO SCH (22:04)
[2023-06-07] MEDS: DOCUSATE SODIUM 100 MG CAPSULE (FP) PO SCH ×4 (05:52→22:43)
[2023-06-07 08:10] LABS: HEMATOCRIT 32.5 % (35.4-49); HEMOGLOBIN 11.2 GM/dL (11.7-16.9); MCH 32.1 pg (25.7-33.7); MCHC 34.6 g/dl (32.0-35.9); MEAN CELL VOLUME 92.8 fl (80-96); MEAN PLT VOLUME 8.2 fl (7.5-11.1); PLATELET COUNT 137 10^3/uL (134-434); RDW 14.5 % (11.9-15.9); WHITE BLOOD COUNT 10.5 K/mm3 (4.0-10.0)
[2023-06-07 08:34] LABS: POTASSIUM 4.4 mmol/L (3.5-5.1)
[2023-06-07 08:43] LABS: CALCIUM 8.7 mg/dL (8.5-10.1)
[2023-06-07 08:44] LABS: ALBUMIN 2.7 g/dl (3.4-5.0); BLOOD UREA NITROGEN 37.1 mg/dL (7-18)
[2023-06-07 08:45] LABS: PHOSPHOROUS 2.4 mg/dL (2.5-4.9)
[2023-06-07 08:46] LABS: CREATININE 1.2 mg/dL (0.55-1.3); TOT PROT 5.3 g/dl (6.4-8.2)
[2023-06-07 08:47] LABS: BILIRUBIN,TOTAL 0.4 mg/dL (0.2-1)
[2023-06-07] MEDS: TAMSULOSIN HCL 0.4 MG CAP PO SCH (09:23)
[2023-06-07] MEDS: FINASTERIDE 5 MG TABLET (FP) PO SCH (09:23)
[2023-06-07] MEDS: ASPIRIN COATED 81 MG TABLET.EC PO SCH (09:23)
[2023-06-07] MEDS: CHOLECALCIFEROL (VIT D3) 1,000 UNIT (25 MCG) TABLET PO SCH (09:23)
[2023-06-07] MEDS: LOSARTAN POTASSIUM 50 MG TABLET PO SCH (09:23)
[2023-06-07] MEDS: ENOXAPARIN NA (PORCINE) 30 MG/0.3 ML DISP.SYRIN SQ SCH (09:24)
[2023-06-07] MEDS: ACETAMINOPHEN 325 MG TABLET (FP) PO PRN ×2 (11:42→16:47)
[2023-06-07] MEDS: MIRTAZAPINE 15 MG TABLET (FP) PO SCH (22:44)
[2023-06-07] MEDS: ATORVASTATIN CA 80 MG TABLET (FP) PO SCH (22:44)
[2023-06-08] MEDS: DOCUSATE SODIUM 100 MG CAPSULE (FP) PO SCH ×3 (05:27→21:09)
[2023-06-08 09:17] LABS: BASO % 0.4 % (0-2.0); EOS % 1.5 % (0-4.5); HEMATOCRIT 36.2 % (35.4-49); HEMOGLOBIN 11.9 GM/dL (11.7-16.9); LYMPH % 6.6 % (8-40); MCH 31.1 pg (25.7-33.7); MCHC 32.9 g/dl (32.0-35.9); MEAN CELL VOLUME 94.6 fl (80-96); MEAN PLT VOLUME 8.3 fl (7.5-11.1); MONO % 6.3 % (3.8-10.2); NEUT % 85.2 % (42.8-82.8); PLATELET COUNT 168 10^3/uL (134-434); RBC 3.82 M/mm3 (4.00-5.60); RDW 14.3 % (11.9-15.9); WHITE BLOOD COUNT 12.2 K/mm3 (4.0-10.0)
[2023-06-08 09:53] LABS: POTASSIUM 3.9 mmol/L (3.5-5.1)
[2023-06-08 09:59] LABS: BLOOD UREA NITROGEN 39.9 mg/dL (7-18)
[2023-06-08 10:02] LABS: CREATININE 1.2 mg/dL (0.55-1.3)
[2023-06-08] MEDS: ENOXAPARIN NA (PORCINE) 30 MG/0.3 ML DISP.SYRIN SQ SCH (10:16)
[2023-06-08] MEDS: FINASTERIDE 5 MG TABLET (FP) PO SCH (10:17)
[2023-06-08] MEDS: ASPIRIN COATED 81 MG TABLET.EC PO SCH (10:17)
[2023-06-08] MEDS: TAMSULOSIN HCL 0.4 MG CAP PO SCH (10:17)
[2023-06-08] MEDS: CHOLECALCIFEROL (VIT D3) 1,000 UNIT (25 MCG) TABLET PO SCH (10:17)
[2023-06-08] MEDS: LOSARTAN POTASSIUM 50 MG TABLET PO SCH (10:17)
[2023-06-08] MEDS: ACETAMINOPHEN WITH CODEINE 300MG/30MG TABLET PO PRN (10:45)
[2023-06-08] MEDS: SILVER SULFADIAZINE 1% TOP CREAM 50 GM JAR TP SCH (18:42)
[2023-06-08 19:00] VITALS: RESP 18
[2023-06-08] MEDS: ACETAMINOPHEN 325 MG TABLET (FP) PO PRN (21:07)
[2023-06-08] MEDS: ATORVASTATIN CA 80 MG TABLET (FP) PO SCH (21:08)
[2023-06-08] MEDS: SENNOSIDES 8.6MG TABLET (FP) PO SCH (21:08)
[2023-06-08] MEDS: MIRTAZAPINE 15 MG TABLET (FP) PO SCH (21:09)
[2023-06-09] MEDS: DOCUSATE SODIUM 100 MG CAPSULE (FP) PO SCH ×3 (06:15→21:10)
[2023-06-09] MEDS: CHOLECALCIFEROL (VIT D3) 1,000 UNIT (25 MCG) TABLET PO SCH (09:58)
[2023-06-09] MEDS: TAMSULOSIN HCL 0.4 MG CAP PO SCH (09:58)
[2023-06-09] MEDS: ASPIRIN COATED 81 MG TABLET.EC PO SCH (09:59)
[2023-06-09] MEDS: LOSARTAN POTASSIUM 50 MG TABLET PO SCH (09:59)
[2023-06-09] MEDS: FINASTERIDE 5 MG TABLET (FP) PO SCH (09:59)
[2023-06-09] MEDS: ENOXAPARIN NA (PORCINE) 30 MG/0.3 ML DISP.SYRIN SQ SCH (09:59)
[2023-06-09] MEDS: SILVER SULFADIAZINE 1% TOP CREAM 50 GM JAR TP SCH (09:59)
[2023-06-09] MEDS: MIRTAZAPINE 15 MG TABLET (FP) PO SCH (21:10)
[2023-06-09] MEDS: ATORVASTATIN CA 80 MG TABLET (FP) PO SCH (21:10)
[2023-06-09] MEDS: SENNOSIDES 8.6MG TABLET (FP) PO SCH (21:10)
[2023-06-10] MEDS: ACETAMINOPHEN 325 MG TABLET (FP) PO PRN (04:18)
[2023-06-10] MEDS: DOCUSATE SODIUM 100 MG CAPSULE (FP) PO SCH (05:35)
[2023-06-10 09:24] LABS: BASO % 0.6 % (0-2.0); EOS % 0.3 % (0-4.5); HEMATOCRIT 36.1 % (35.4-49); HEMOGLOBIN 11.5 GM/dL (11.7-16.9); LYMPH % 4.5 % (8-40); MCH 30.4 pg (25.7-33.7); MCHC 31.9 g/dl (32.0-35.9); MEAN CELL VOLUME 95.4 fl (80-96); MEAN PLT VOLUME 8.5 fl (7.5-11.1); MONO % 4.2 % (3.8-10.2); NEUT % 90.4 % (42.8-82.8); PLATELET COUNT 219 10^3/uL (134-434); RBC 3.78 M/mm3 (4.00-5.60); RDW 14.4 % (11.9-15.9); WHITE BLOOD COUNT 16.4 K/mm3 (4.0-10.0)
[2023-06-10] MEDS: ASPIRIN COATED 81 MG TABLET.EC PO SCH (09:34)
[2023-06-10] MEDS: TAMSULOSIN HCL 0.4 MG CAP PO SCH (09:34)
[2023-06-10] MEDS: LOSARTAN POTASSIUM 50 MG TABLET PO SCH (09:34)
[2023-06-10] MEDS: ENOXAPARIN NA (PORCINE) 30 MG/0.3 ML DISP.SYRIN SQ SCH (09:34)
[2023-06-10] MEDS: CHOLECALCIFEROL (VIT D3) 1,000 UNIT (25 MCG) TABLET PO SCH (09:35)
[2023-06-10] MEDS: FINASTERIDE 5 MG TABLET (FP) PO SCH (09:35)
[2023-06-10] MEDS: SILVER SULFADIAZINE 1% TOP CREAM 50 GM JAR TP SCH (09:35)
[2023-06-10 10:12] LABS: POTASSIUM 4.4 mmol/L (3.5-5.1)
[2023-06-10 10:13] LABS: CALCIUM 8.8 mg/dL (8.5-10.1)
[2023-06-10 10:14] LABS: BLOOD UREA NITROGEN 50.2 mg/dL (7-18)
[2023-06-10 10:17] LABS: CREATININE 1.5 mg/dL (0.55-1.3)
[2023-06-10] MEDS: ACETAMINOPHEN WITH CODEINE 300MG/30MG TABLET PO PRN (11:02)
[2023-06-10 12:06] VITALS: BP 135/84; PULSE 105; TEMP 98.4
== END 2023-06-10 13:20 | DRG 461 ==
LOC: JER 18:41 → JERBED 22:23 → J2W 06-03 12:57 → JICU 06-03 21:14 → J4W 06-03 21:21 → J7W 06-07 13:03
PROVIDERS: ADMIT Student in an Organized Health Care Education/Training Program; ATTEND Internal Medicine
PROC: 0SRR0JZ Replacement of Right Hip Joint, Femoral Surface with Synthetic Substitute, Open Approach (ICD-10-PCS; 2023-06-04)
PROC: 0SRS0JZ Replacement of Left Hip Joint, Femoral Surface with Synthetic Substitute, Open Approach (ICD-10-PCS; principal; 2023-06-04 08:00)
DX: S72.012A Unspecified intracapsular fracture of left femur, initial encounter for closed fracture (principal); E43 Unspecified severe protein-calorie malnutrition; S72.011A Unspecified intracapsular fracture of right femur, initial encounter for closed fracture; I24.8 Other forms of acute ischemic heart disease; I13.0 Hypertensive heart and chronic kidney disease with heart failure and stage 1 through stage 4 chronic kidney disease, or unspecified chronic kidney disease; I50.22 Chronic systolic (congestive) heart failure; K50.90 Crohn's disease, unspecified, without complications; Z68.1 Body mass index [BMI] 19.9 or less, adult; I10 Essential (primary) hypertension; E78.5 Hyperlipidemia, unspecified; G30.9 Alzheimer's disease, unspecified; F02.80 Dementia in other diseases classified elsewhere, unspecified severity, without behavioral disturbance, psychotic disturbance, mood disturbance, and anxiety; I25.10 Atherosclerotic heart disease of native coronary artery without angina pectoris; Z86.73 Personal history of transient ischemic attack (TIA), and cerebral infarction without residual deficits; N40.0 Benign prostatic hyperplasia without lower urinary tract symptoms; E54 Ascorbic acid deficiency; M54.50 Low back pain, unspecified; S80.12XA Contusion of left lower leg, initial encounter; S80.11XA Contusion of right lower leg, initial encounter; W01.0XXA Fall on same level from slipping, tripping and stumbling without subsequent striking against object, initial encounter; Y92.098 Other place in other non-institutional residence as the place of occurrence of the external cause; N18.9 Chronic kidney disease, unspecified; I25.2 Old myocardial infarction; Z95.2 Presence of prosthetic heart valve
CPT/HCPCS: 36415; 70450-TC; 71045-TC-FY; 72125-TC; 72192-TC; 73521-TC-FY; 73552-TC-LT-FY; 73552-TC-RT-FY; 76000-TC-FY; 80048; 80053; 81003; 83735; 84100; 84484; 85025; 85027; 85610; 85730; 86850; 86900; 86901; 87086; 93005; 93010; 93306-TC; 94010; 94760; 97116-GP; 97162-GP; 99285-25; C1713

== ENCOUNTER 2023-09-01 13:04 | Inpatient (IN) | payer OTHER ==
[2023-09-01 14:55] LABS: BASO % 0.5 % (0-2.0); EOS % 1.2 % (0-4.5); HEMATOCRIT 39.9 % (35.4-49); HEMOGLOBIN 13.3 GM/dL (11.7-16.9); MCH 29.7 pg (25.7-33.7); MCHC 33.4 g/dl (32.0-35.9); MEAN CELL VOLUME 88.7 fl (80-96); MONO % 10.1 % (3.8-10.2); NEUT % 82.2 % (42.8-82.8); PLATELET COUNT 171 10^3/uL (134-434); RDW 14.1 % (11.9-15.9); WHITE BLOOD COUNT 10.6 K/mm3 (4.0-10.0)
[2023-09-01 15:02] LABS: INR 1.04 (0.83-1.09); PROTHROMBIN TIME (PATIENT) 12.1 SEC (9.7-13.0)
[2023-09-01 15:12] LABS: POTASSIUM 4.5 mmol/L (3.5-5.1)
[2023-09-01 15:16] LABS: ALBUMIN 3.2 g/dl (3.4-5.0); BLOOD UREA NITROGEN 39.6 mg/dL (7-18); CALCIUM 9.1 mg/dL (8.5-10.1); MAGNESIUM 1.9 mg/dL (1.8-2.4)
[2023-09-01 15:19] LABS: CREATININE 1.9 mg/dL (0.55-1.3)
[2023-09-01 15:21] LABS: BILIRUBIN,TOTAL 0.4 mg/dL (0.2-1); TOT PROT 6.2 g/dl (6.4-8.2)
[2023-09-01] MEDS ORDERED: SODIUM CHLORIDE 0.9% 500 ML INFUS.BAG IV ONE (18:15)
[2023-09-01] MEDS ORDERED: ACETAMINOPHEN 1000 MG/100 ML BAG IVPB ONE (18:15)
[2023-09-01] MEDS ORDERED: ACETAMINOPHEN INJECTION 100 ML IVPB ONE (19:16)
[2023-09-01] MEDS ORDERED: DONEPEZIL HCL 5 MG TABLET (FP) PO SCH (22:00)
[2023-09-01] MEDS ORDERED: SENNOSIDES 8.6MG TABLET (FP) PO SCH (22:00)
[2023-09-01] MEDS ORDERED: ATORVASTATIN CA 80 MG TABLET (FP) PO SCH (22:00)
[2023-09-01] MEDS ORDERED: SENNOSIDES 8.6MG TABLET (FP) PO ONE (22:05)
[2023-09-01] MEDS ORDERED: ATORVASTATIN CA 80 MG TABLET (FP) ONE (22:06)
[2023-09-01] MEDS ORDERED: DOCUSATE SODIUM 100 MG CAPSULE (FP) PO ONE (22:06)
[2023-09-01] MEDS ORDERED: DONEPEZIL HCL 5 MG TABLET (FP) ONE (22:06)
[2023-09-01] MEDS: DOCUSATE SODIUM 100 MG CAPSULE (FP) PO SCH (22:12)
[2023-09-02] MEDS: DOCUSATE SODIUM 100 MG CAPSULE (FP) PO SCH ×3 (05:07→22:10)
[2023-09-02 08:15] LABS: BASO % 0.8 % (0-2.0); EOS % 3.3 % (0-4.5); HEMOGLOBIN 13.7 GM/dL (11.7-16.9); LYMPH % 10.8 % (8-40); MCH 28.8 pg (25.7-33.7); MCHC 31.8 g/dl (32.0-35.9); MEAN CELL VOLUME 90.5 fl (80-96); MEAN PLT VOLUME 8.1 fl (7.5-11.1); MONO % 8.9 % (3.8-10.2); NEUT % 76.2 % (42.8-82.8); PLATELET COUNT 153 10^3/uL (134-434); RBC 4.75 M/mm3 (4.00-5.60); RDW 14.5 % (11.9-15.9); WHITE BLOOD COUNT 9.6 K/mm3 (4.0-10.0)
[2023-09-02] MEDS ORDERED: TAMSULOSIN HCL 0.4 MG CAP PO SCH (08:30)
[2023-09-02 08:42] LABS: POTASSIUM 4.7 mmol/L (3.5-5.1)
[2023-09-02 09:17] LABS: ALBUMIN 3.2 g/dl (3.4-5.0); CALCIUM 9.4 mg/dL (8.5-10.1)
[2023-09-02 09:18] LABS: BLOOD UREA NITROGEN 36.4 mg/dL (7-18)
[2023-09-02 09:21] LABS: CREATININE 1.6 mg/dL (0.55-1.3)
[2023-09-02 09:22] LABS: BILIRUBIN,TOTAL 0.5 mg/dL (0.2-1); TOT PROT 6.6 g/dl (6.4-8.2)
[2023-09-02] MEDS ORDERED: LOSARTAN POTASSIUM 25 MG TABLET PO SCH (10:00)
[2023-09-02] MEDS ORDERED: CHOLECALCIFEROL (VIT D3) 1,000 UNIT (25 MCG) TABLET PO SCH (10:00)
[2023-09-02] MEDS ORDERED: ENOXAPARIN NA (PORCINE) 40 MG/0.4 ML DISP.SYRIN SQ SCH (10:00)
[2023-09-02] MEDS ORDERED: FINASTERIDE 5 MG TABLET (FP) PO SCH (10:00)
[2023-09-02] MEDS ORDERED: MIRTAZAPINE 15 MG TABLET (FP) PO SCH (10:00)
[2023-09-02] MEDS ORDERED: amLODIPine BESYLATE 10 MG TABLET (FP) PO SCH (10:00)
[2023-09-02] MEDS ORDERED: ASPIRIN COATED 81 MG TABLET.EC PO SCH (10:00)
[2023-09-02] MEDS ORDERED: FERROUS SO4 325 MG TABLET (FP) PO SCH (10:00)
[2023-09-02] MEDS: DONEPEZIL HCL 5 MG TABLET (FP) PO SCH (22:10)
[2023-09-02] MEDS: SENNOSIDES 8.6MG TABLET (FP) PO SCH (22:10)
[2023-09-02] MEDS: ATORVASTATIN CA 80 MG TABLET (FP) PO SCH (22:11)
[2023-09-02] MEDS: MIRTAZAPINE 15 MG TABLET (FP) PO SCH (22:11)
[2023-09-03] MEDS: DOCUSATE SODIUM 100 MG CAPSULE (FP) PO SCH ×3 (06:42→21:28)
[2023-09-03] MEDS: TAMSULOSIN HCL 0.4 MG CAP PO SCH (09:06)
[2023-09-03] MEDS: LOSARTAN POTASSIUM 25 MG TABLET PO SCH (09:07)
[2023-09-03] MEDS: CHOLECALCIFEROL (VIT D3) 1,000 UNIT (25 MCG) TABLET PO SCH (09:07)
[2023-09-03] MEDS: ASPIRIN COATED 81 MG TABLET.EC PO SCH (09:07)
[2023-09-03] MEDS: FINASTERIDE 5 MG TABLET (FP) PO SCH (09:07)
[2023-09-03] MEDS: amLODIPine BESYLATE 10 MG TABLET (FP) PO SCH (09:07)
[2023-09-03] MEDS: FERROUS SO4 325 MG TABLET (FP) PO SCH (09:07)
[2023-09-03] MEDS: ENOXAPARIN NA (PORCINE) 30 MG/0.3 ML DISP.SYRIN SQ SCH (09:08)
[2023-09-03 09:22] LABS: BASO % 0.6 % (0-2.0); EOS % 1.7 % (0-4.5); HEMATOCRIT 39.9 % (35.4-49); HEMOGLOBIN 12.6 GM/dL (11.7-16.9); LYMPH % 8.4 % (8-40); MCH 28.7 pg (25.7-33.7); MCHC 31.5 g/dl (32.0-35.9); MEAN CELL VOLUME 91.2 fl (80-96); MEAN PLT VOLUME 8.8 fl (7.5-11.1); MONO % 8.6 % (3.8-10.2); NEUT % 80.7 % (42.8-82.8); PLATELET COUNT 113 10^3/uL (134-434); RBC 4.38 M/mm3 (4.00-5.60); RDW 14.2 % (11.9-15.9); WHITE BLOOD COUNT 12.6 K/mm3 (4.0-10.0)
[2023-09-03 09:44] LABS: POTASSIUM 4.3 mmol/L (3.5-5.1)
[2023-09-03 09:48] LABS: ALBUMIN 3.1 g/dl (3.4-5.0); BLOOD UREA NITROGEN 36.9 mg/dL (7-18); CALCIUM 9.2 mg/dL (8.5-10.1)
[2023-09-03 09:51] LABS: CREATININE 1.6 mg/dL (0.55-1.3)
[2023-09-03 09:53] LABS: BILIRUBIN,TOTAL 0.9 mg/dL (0.2-1); TOT PROT 6.3 g/dl (6.4-8.2)
[2023-09-03 11:42] LABS: URINE APPEARANCE TURBID; URINE COLOR YELLOW
[2023-09-03 11:43] LABS: PH,URINE 5.5 (5.0-8.0); URINE BILIRUBIN NEGATIVE (NEGATIVE); URINE GLUCOSE (UA) NEGATIVE (NEGATIVE); URINE KETONE NEGATIVE (NEGATIVE); URINE NITRITE NEGATIVE (NEGATIVE); URINE PROTEIN 3+ (NEGATIVE); URINE UROBILINOGEN 0.2 mg/dL (0.2-1.0)
[2023-09-03 11:44] LABS: URINE LEUK ESTERASE 4+ (NEGATIVE)
[2023-09-03 11:47] LABS: URINE RBC 254.1 /uL (0-23.9)
[2023-09-03 11:48] LABS: EPI CELLS 20 /uL (0-25.1); URINE BACTERIA 2500 /uL (0-1359)
[2023-09-03 14:37] VITALS: BMI 16.0
[2023-09-03] MEDS: DONEPEZIL HCL 5 MG TABLET (FP) PO SCH (21:27)
[2023-09-03] MEDS: MIRTAZAPINE 15 MG TABLET (FP) PO SCH (21:27)
[2023-09-03] MEDS: ATORVASTATIN CA 80 MG TABLET (FP) PO SCH (21:27)
[2023-09-03] MEDS: SENNOSIDES 8.6MG TABLET (FP) PO SCH (21:27)
[2023-09-04] MEDS: DOCUSATE SODIUM 100 MG CAPSULE (FP) PO SCH ×3 (06:06→22:31)
[2023-09-04] MEDS: LOSARTAN POTASSIUM 25 MG TABLET PO SCH (11:12)
[2023-09-04] MEDS: FINASTERIDE 5 MG TABLET (FP) PO SCH (11:12)
[2023-09-04] MEDS: ASPIRIN COATED 81 MG TABLET.EC PO SCH (11:12)
[2023-09-04] MEDS: CHOLECALCIFEROL (VIT D3) 1,000 UNIT (25 MCG) TABLET PO SCH (11:13)
[2023-09-04] MEDS: FERROUS SO4 325 MG TABLET (FP) PO SCH (11:13)
[2023-09-04] MEDS: amLODIPine BESYLATE 10 MG TABLET (FP) PO SCH (11:13)
[2023-09-04] MEDS: TAMSULOSIN HCL 0.4 MG CAP PO SCH (11:13)
[2023-09-04] MEDS: ENOXAPARIN NA (PORCINE) 30 MG/0.3 ML DISP.SYRIN SQ SCH (11:16)
[2023-09-04] MEDS: SENNOSIDES 8.6MG TABLET (FP) PO SCH (22:31)
[2023-09-04] MEDS: MIRTAZAPINE 15 MG TABLET (FP) PO SCH (22:31)
[2023-09-04] MEDS: ATORVASTATIN CA 80 MG TABLET (FP) PO SCH (22:31)
[2023-09-04] MEDS: DONEPEZIL HCL 5 MG TABLET (FP) PO SCH (22:31)
[2023-09-05] MEDS: DOCUSATE SODIUM 100 MG CAPSULE (FP) PO SCH ×3 (05:20→22:04)
[2023-09-05] MEDS: CHOLECALCIFEROL (VIT D3) 1,000 UNIT (25 MCG) TABLET PO SCH (09:22)
[2023-09-05] MEDS: TAMSULOSIN HCL 0.4 MG CAP PO SCH (09:22)
[2023-09-05] MEDS: FINASTERIDE 5 MG TABLET (FP) PO SCH (09:22)
[2023-09-05] MEDS: amLODIPine BESYLATE 10 MG TABLET (FP) PO SCH (09:22)
[2023-09-05] MEDS: ASPIRIN COATED 81 MG TABLET.EC PO SCH (09:22)
[2023-09-05] MEDS: ENOXAPARIN NA (PORCINE) 30 MG/0.3 ML DISP.SYRIN SQ SCH (09:22)
[2023-09-05] MEDS: FERROUS SO4 325 MG TABLET (FP) PO SCH (09:22)
[2023-09-05] MEDS: LOSARTAN POTASSIUM 25 MG TABLET PO SCH (09:22)
[2023-09-05 09:50] LABS: BASO % 0.6 % (0-2.0); EOS % 4.5 % (0-4.5); HEMATOCRIT 38.2 % (35.4-49); HEMOGLOBIN 12.4 GM/dL (11.7-16.9); LYMPH % 13.5 % (8-40); MCH 29.4 pg (25.7-33.7); MCHC 32.5 g/dl (32.0-35.9); MEAN CELL VOLUME 90.6 fl (80-96); MEAN PLT VOLUME 8.6 fl (7.5-11.1); NEUT % 71.4 % (42.8-82.8); PLATELET COUNT 145 10^3/uL (134-434); RBC 4.22 M/mm3 (4.00-5.60); RDW 14.4 % (11.9-15.9); WHITE BLOOD COUNT 8.3 K/mm3 (4.0-10.0)
[2023-09-05] MEDS ORDERED: CEFTRIAXONE 1 GM in DEXTROSE 5%-WATER - 50 ML IVPB SCH (10:00)
[2023-09-05 10:19] LABS: POTASSIUM 4.3 mmol/L (3.5-5.1)
[2023-09-05 10:22] LABS: CALCIUM 8.9 mg/dL (8.5-10.1)
[2023-09-05 10:23] LABS: ALBUMIN 2.9 g/dl (3.4-5.0)
[2023-09-05 10:25] LABS: BLOOD UREA NITROGEN 50.2 mg/dL (7-18)
[2023-09-05 10:26] LABS: CREATININE 1.9 mg/dL (0.55-1.3)
[2023-09-05 10:27] LABS: TOT PROT 6.1 g/dl (6.4-8.2)
[2023-09-05 10:28] LABS: BILIRUBIN,TOTAL 0.3 mg/dL (0.2-1)
[2023-09-05] MEDS: SODIUM CHLORIDE 1,000 ML IV SCH (17:43)
[2023-09-05] MEDS: MIRTAZAPINE 15 MG TABLET (FP) PO SCH (22:03)
[2023-09-05] MEDS: ATORVASTATIN CA 80 MG TABLET (FP) PO SCH (22:03)
[2023-09-05] MEDS: SENNOSIDES 8.6MG TABLET (FP) PO SCH (22:03)
[2023-09-05] MEDS: DONEPEZIL HCL 5 MG TABLET (FP) PO SCH (22:03)
[2023-09-06] MEDS: DOCUSATE SODIUM 100 MG CAPSULE (FP) PO SCH ×3 (06:04→22:00)
[2023-09-06] MEDS: ASPIRIN COATED 81 MG TABLET.EC PO SCH (09:22)
[2023-09-06] MEDS: LOSARTAN POTASSIUM 25 MG TABLET PO SCH (09:22)
[2023-09-06] MEDS: ENOXAPARIN NA (PORCINE) 30 MG/0.3 ML DISP.SYRIN SQ SCH (09:22)
[2023-09-06] MEDS: TAMSULOSIN HCL 0.4 MG CAP PO SCH (09:22)
[2023-09-06] MEDS: FINASTERIDE 5 MG TABLET (FP) PO SCH (09:22)
[2023-09-06] MEDS: amLODIPine BESYLATE 10 MG TABLET (FP) PO SCH (09:22)
[2023-09-06] MEDS: CHOLECALCIFEROL (VIT D3) 1,000 UNIT (25 MCG) TABLET PO SCH (09:22)
[2023-09-06] MEDS: FERROUS SO4 325 MG TABLET (FP) PO SCH (09:22)
[2023-09-06 10:21] LABS: POTASSIUM 4.4 mmol/L (3.5-5.1)
[2023-09-06 10:23] LABS: BLOOD UREA NITROGEN 51.1 mg/dL (7-18); CALCIUM 9.2 mg/dL (8.5-10.1)
[2023-09-06 10:26] LABS: CREATININE 1.8 mg/dL (0.55-1.3)
[2023-09-06] MEDS: SODIUM CHLORIDE 1,000 ML IV SCH (13:17)
[2023-09-06] MEDS: SENNOSIDES 8.6MG TABLET (FP) PO SCH (22:00)
[2023-09-06] MEDS: DONEPEZIL HCL 5 MG TABLET (FP) PO SCH (22:00)
[2023-09-06] MEDS: ATORVASTATIN CA 80 MG TABLET (FP) PO SCH (22:00)
[2023-09-06] MEDS: MIRTAZAPINE 15 MG TABLET (FP) PO SCH (22:00)
[2023-09-07] MEDS: DOCUSATE SODIUM 100 MG CAPSULE (FP) PO SCH ×3 (06:14→22:05)
[2023-09-07] MEDS ORDERED: QUEtiapine FUMARATE 25 MG TABLET PO ONE (09:06)
[2023-09-07 09:25] LABS: BASO % 0.6 % (0-2.0); EOS % 4.1 % (0-4.5); HEMATOCRIT 37.7 % (35.4-49); HEMOGLOBIN 12.3 GM/dL (11.7-16.9); LYMPH % 11.2 % (8-40); MCH 29.7 pg (25.7-33.7); MCHC 32.8 g/dl (32.0-35.9); MEAN CELL VOLUME 90.5 fl (80-96); MEAN PLT VOLUME 8.4 fl (7.5-11.1); MONO % 10.8 % (3.8-10.2); NEUT % 73.3 % (42.8-82.8); PLATELET COUNT 153 10^3/uL (134-434); RBC 4.16 M/mm3 (4.00-5.60); RDW 14.5 % (11.9-15.9); WHITE BLOOD COUNT 9.2 K/mm3 (4.0-10.0)
[2023-09-07 09:49] LABS: POTASSIUM 4.5 mmol/L (3.5-5.1)
[2023-09-07 09:53] LABS: CALCIUM 9.2 mg/dL (8.5-10.1)
[2023-09-07 09:57] LABS: ALBUMIN 2.9 g/dl (3.4-5.0); CREATININE 1.7 mg/dL (0.55-1.3)
[2023-09-07 09:58] LABS: BILIRUBIN,TOTAL 0.4 mg/dL (0.2-1)
[2023-09-07] MEDS: ENOXAPARIN NA (PORCINE) 30 MG/0.3 ML DISP.SYRIN SQ SCH (10:58)
[2023-09-07] MEDS: FINASTERIDE 5 MG TABLET (FP) PO SCH (10:59)
[2023-09-07] MEDS: TAMSULOSIN HCL 0.4 MG CAP PO SCH (10:59)
[2023-09-07] MEDS: ASPIRIN COATED 81 MG TABLET.EC PO SCH (10:59)
[2023-09-07] MEDS: amLODIPine BESYLATE 10 MG TABLET (FP) PO SCH ×2 (10:59→11:17)
[2023-09-07] MEDS: CHOLECALCIFEROL (VIT D3) 1,000 UNIT (25 MCG) TABLET PO SCH (10:59)
[2023-09-07] MEDS: LOSARTAN POTASSIUM 25 MG TABLET PO SCH ×2 (10:59→11:06)
[2023-09-07] MEDS: FERROUS SO4 325 MG TABLET (FP) PO SCH (10:59)
[2023-09-07] MEDS: SODIUM CHLORIDE 1,000 ML IV SCH (15:39)
[2023-09-07 19:47] VITALS: RESP 18
[2023-09-07] MEDS: ATORVASTATIN CA 80 MG TABLET (FP) PO SCH (22:05)
[2023-09-07] MEDS: DONEPEZIL HCL 5 MG TABLET (FP) PO SCH (22:05)
[2023-09-07] MEDS: SENNOSIDES 8.6MG TABLET (FP) PO SCH (22:05)
[2023-09-07] MEDS: MIRTAZAPINE 15 MG TABLET (FP) PO SCH (22:05)
[2023-09-07 23:21] VITALS: BP 118/64; PULSE 68; TEMP 98.4
== END 2023-09-08 01:01 | DRG 689 ==
LOC: JER 13:04 → JERBED 19:05 → J8W 09-02 16:51 → OBSVTOIN 09-05 13:52
PROVIDERS: ADMIT Family Medicine; ATTEND Family Medicine
DX: N39.0 Urinary tract infection, site not specified (principal); E43 Unspecified severe protein-calorie malnutrition; I13.0 Hypertensive heart and chronic kidney disease with heart failure and stage 1 through stage 4 chronic kidney disease, or unspecified chronic kidney disease; Z68.1 Body mass index [BMI] 19.9 or less, adult; F02.80 Dementia in other diseases classified elsewhere, unspecified severity, without behavioral disturbance, psychotic disturbance, mood disturbance, and anxiety; E78.5 Hyperlipidemia, unspecified; G30.9 Alzheimer's disease, unspecified; I50.9 Heart failure, unspecified; I11.0 Hypertensive heart disease with heart failure; N18.30 Chronic kidney disease, stage 3 unspecified; E86.0 Dehydration; I25.10 Atherosclerotic heart disease of native coronary artery without angina pectoris
CPT/HCPCS: 0241U-QW; 36415; 70450-TC; 71045-TC-FY; 72125-TC; 72170-TC-FY; 73030-TC-LT-FY; 73070-TC-LT-FY; 73502-TC-LT-FY; 73560-TC-LT-FY; 80048; 80053; 81003; 82962; 83735; 84484; 85025; 85610; 85730; 87086; 87186; 87635; 93005; 93010; 97116-GP; 97162-GP; 99285-25; G0378